=== PATIENT | female | born 1945 | race Caucasian/White ===

== ENCOUNTER → 2016-12-31 | Outpatient (REF) | payer OTHER ==
[~2016-12-31] MED LIST: /MOXI40TA OR; /PANT40TA OR; /SUCR1TA OR; ASPI324T; ASPI32ECTA PO; ATIV1TAB7 PO; BISO10TA PO; BISO10TA2 OR; CALCTAB22 OR; CAPT12.5 OR; CAPT125TA PO; INVO100T PO; JANU100T PO; LASIX PO; LEVE1INJ5 SC; LIPI20TA PO; LORA1TAB OR; MULT1TAB15 PO; MULTIVIT PO; POTA-77 PO; POTA20TA PO; PREG50CA OR; QUET5TAB PO; SYNT75TA OR; SYNT75TA PO; pradaxa PO
[2016-12-31 18:12] LABS: IMMUNOGLOBULIN A 38.8 MG/DL (70-400); IMMUNOGLOBULIN G 1790 MG/DL (681-1648); TOTAL PROTEIN 7.9 GM/DL (6.4-8.2)
[2016-12-31 19:09] LABS: IMMUNOGLOBULIN M 20.6 MG/DL (40-230)
[2017-01-02 11:49] LABS: ALBUMIN % 54.4 % (55.8-66.1); GAMMA GLOBULIN % 21.6 % (11.1-18.8)
== END ==
LOC: M LAB REF 16:27
PROVIDERS: ATTEND Internal Medicine
DX: D47.2 Monoclonal gammopathy (principal)

== ENCOUNTER → 2017-02-17 | Outpatient (REF) | payer OTHER ==
[~2017-02-17] MED LIST changes: +ASPI325T24 PO; -ASPI32ECTA PO; +DEXA4TA PO; +DIGO0.25 PO; +INSUDET SC; +INVO300T PO; +LASI80TA PO; +LEVA1TAB2 PO; +NYST50SS SS; +POTA10CA PO; +PROC10TA PO; +REVL2.5C PO; +VELC3.5I SC; +VITA-122 PO; +VITMTA PO; +XARE20TA PO; +ZOFR8TAB PO
[2017-02-17 19:38] LABS: IMMUNOGLOBULIN M 18.6 MG/DL (40-230)
[2017-02-20 00:07] LABS: BETA 2 MICROGLOBULIN 5.2 mg/L (0.6-2.4); FREE KAPPA LIGHT CHAINS SERUM 12.2 mg/L (3.3-19.4); FREE LAMBDA LIGHT CHAINS SERUM 1086.4 mg/L (5.7-26.3); KAPPA/LAMBDA RATIO SERUM 0.01 (0.26-1.65)
== END ==
LOC: M LAB REF 16:59
PROVIDERS: ATTEND Internal Medicine Medical Oncology
DX: D47.2 Monoclonal gammopathy (principal)

== ENCOUNTER → 2017-03-05 | Outpatient (REF) | payer OTHER | LOC: M LAB REF 09:03 | PROVIDERS: ATTEND Internal Medicine Medical Oncology | DX: D47.2 Monoclonal gammopathy (principal) ==

== ENCOUNTER → 2017-03-16 | Outpatient (REF) | payer OTHER | LOC: M LAB REF 11:45 | PROVIDERS: ATTEND Internal Medicine Medical Oncology | DX: D47.2 Monoclonal gammopathy (principal); D75.89 Other specified diseases of blood and blood-forming organs; D64.9 Anemia, unspecified ==

== ENCOUNTER → 2017-04-07 | Outpatient (CLI) | payer OTHER ==
--- NOTE | 2017-04-07 15:59 | REP ---
PET/CT: History: Multiple myeloma staging. Bone pain. Equivocal skeletal imaging. The patient also has a history of lung carcinoma. Comparison: Comparison PET-CT study July 05, 2015. TECHNIQUE: 55 minutes following the intravenous injection of a 9.4 mCi dose of F-18 FDG, three-dimensional PET scintigraphy is acquired from the skull base to the proximal thighs. Triplanar noncontrast CT scanning is acquired through the same anatomic range for attenuation correction, and image registration with scan parameters optimized to minimize radiation exposure to the patient. PET scintigraphy and CT datasets were fused and displayed on a workstation with multiplanar and projection display capability. PET/CT Findings: There is post thoracotomy change in the right hemithorax. Adjacent to suture line in the right hilar region, there is a mild zone of hypermetabolic uptake with maximum standard uptake value 3.6. No soft tissue mass or nodule is seen here. The azygos venous arch as in this location and this may be normal vascular uptake. No other abnormal intrathoracic hypermetabolic uptake is seen. No abnormal abdominal or pelvic hypermetabolic uptake is seen. No abnormal skeletal hypermetabolic uptake is seen. Impression: Post thoracotomy changes on the right. No suspicious abnormal hypermetabolic uptake seen. Signed by Tom Lemos MD 04/07/2017 04:10 P
== END ==
LOC: M PLARAD 11:32
PROVIDERS: ATTEND Internal Medicine Medical Oncology
DX: C90.00 Multiple myeloma not having achieved remission (principal); M89.8X9 Other specified disorders of bone, unspecified site
CPT/HCPCS: 78815; A9552

== ENCOUNTER → 2017-04-09 | Outpatient (REF) | payer OTHER | LOC: M LAB REF 15:25 | PROVIDERS: ATTEND Internal Medicine Medical Oncology | DX: C90.00 Multiple myeloma not having achieved remission (principal); Z85.118 Personal history of other malignant neoplasm of bronchus and lung ==

== ENCOUNTER → 2017-04-27 | Outpatient (REF) | payer OTHER ==
[2017-04-27 14:59] LABS: IMMUNOGLOBULIN A 35.6 MG/DL (70-400); IMMUNOGLOBULIN G 2100 MG/DL (681-1648); TOTAL PROTEIN 8.4 GM/DL (6.4-8.2)
[2017-04-27 16:34] LABS: IMMUNOGLOBULIN M 16.3 MG/DL (40-230)
[2017-04-28 12:04] LABS: ALBUMIN % 52.4 % (55.8-66.1); GAMMA GLOBULIN % 22.3 % (11.1-18.8)
[2017-04-30 00:07] LABS: BETA 2 MICROGLOBULIN 2.8 mg/L (0.6-2.4); FREE KAPPA LIGHT CHAINS SERUM 8.7 mg/L (3.3-19.4); FREE LAMBDA LIGHT CHAINS SERUM 767.6 mg/L (5.7-26.3); KAPPA/LAMBDA RATIO SERUM 0.01 (0.26-1.65)
== END ==
LOC: M LAB REF 13:07
PROVIDERS: ATTEND Internal Medicine Medical Oncology
DX: C90.00 Multiple myeloma not having achieved remission (principal)

== ENCOUNTER → 2017-04-29 | Outpatient (REF) | payer OTHER | LOC: M LAB REF 14:59 | PROVIDERS: ATTEND Internal Medicine Medical Oncology | DX: C34.90 Malignant neoplasm of unspecified part of unspecified bronchus or lung (principal) ==

== ENCOUNTER → 2017-04-30 | Outpatient (REF) | payer OTHER | LOC: M LAB REF 12:48 | PROVIDERS: ATTEND Internal Medicine Medical Oncology | DX: C34.90 Malignant neoplasm of unspecified part of unspecified bronchus or lung (principal) ==

== ENCOUNTER 2017-05-16 11:05 | Inpatient (IN) | payer OTHER ==
[~2017-05-16] VITALS: Ht 154.9 cm; Wt 88.0 kg
[~2017-05-16 11:05] MED LIST changes: -DEXA4TA PO; -DIGO0.25 PO; -INSUDET SC; -INVO300T PO; -LASI80TA PO; -LEVA1TAB2 PO; -NYST50SS SS; -POTA10CA PO; -PROC10TA PO; -REVL2.5C PO; -VELC3.5I SC; -VITA-122 PO; -VITMTA PO; -XARE20TA PO; -ZOFR8TAB PO
[2017-05-16] MEDS ORDERED: ZOFR8TAB PO (11:21)
[2017-05-16] MEDS ORDERED: XARE20TA PO (11:21)
[2017-05-16 12:39] LABS: BASO % 0.3 % (0.0-1.0); EOS # 0.1 10^3/uL (0.0-0.50); EOS % 3.6 % (0.0-3.0); IMMATURE GRANULOCYTE % 1.7 % (0-0); LYMPH # 0.5 10^3/uL (1.5-4.5); LYMPH % 17.2 % (24.0-44.0); MEAN CORPUSCULAR HEMOGLOBIN 29.8 pg (27.0-33.0); MEAN CORPUSCULAR HGB CONC 32.9 g/dl (32.0-36.5); MEAN CORPUSCULAR VOLUME 90.7 fl (80.0-96.0); MONO # 0.6 10^3/uL (0.0-0.8); MONO % 18.9 % (0.0-5.0); NEUTROPHILS # 1.8 10^3/uL (1.8-7.7); NEUTROPHILS % 58.3 % (36.0-66.0); PLATELET COUNT, AUTOMATED 167 10^3/uL (150-450); RED CELL DISTRIBUTION WIDTH 17.6 % (11.5-14.5)
[2017-05-16 12:46] LABS: CREATININE FOR GFR 1.08 MG/DL (0.55-1.02); GLOMERULAR FILTRATION RATE 53.4 (>39); POTASSIUM SERUM 3.7 MEQ/L (3.5-5.1)
[2017-05-16 12:52] LABS: ABG BASE EXCESS 2.7 (-2.0-2.0); ABG PARTIAL PRESSURE CO2 35.1 mmHg (35.0-45.0); ABG STANDARD HCO3 26.5 MEQ/L (22.0-26.0); ABG pH (ARTERIAL) 7.487 UNITS (7.350-7.450)
[2017-05-16 12:55] LABS: ABG PARTIAL PRESSURE O2 41.4 mmHg (75.0-100.0)
[2017-05-16] MEDS ORDERED: ISOVUE-370 76% 100ML VIAL (Q9967) As Ordered ONE (13:26)
--- NOTE | 2017-05-16 13:45 | REP ---
Portable chest, 01:06 p.m., single AP view, the patient semi upright: Comparisons are the portable chest dated 08/14/2015, PA and lateral chest dated 02/[address] dated 07/25/2015. There are alveolar and interstitial infiltrates throughout the entire left lung as an interval change. There is interstitial coarsening throughout the right lung, slightly increased from 08/14/2015. There is question of a right pleural effusion. The right hilus appears enlarged as an interval change. Cardiac size is upper normal. Signed by Constantine Spann MD 05/16/2017 01:36 P
--- NOTE | 2017-05-16 14:28 | REP ---
CT of the chest with IV contrast, CT pulmonary angiography: Comparison is the chest CT of 07/25/2015. Note from the technologist reveals that the triggering program for timing of scanning with the intravenous contrast bolus failed during the injection and the technologist was able to scan manually however, the majority of the bolus is in the aorta. I believe there is adequate opacification of the central pulmonary arteries. There are no emboli in the pulmonary trunk or in the central right or left pulmonary base. Pulmonary arteries distal to this are not adequately opacified. The patient has had an interim right upper lobectomy and the right upper lobe paramediastinal mass that was present previously is no longer identified. There are small bilateral pleural effusions, not present previously. There are diffuse bilateral infiltrates, not present previously. Some of these infiltrates have a nodular appearance. There are a few borderline enlarged anterior mediastinal nodes that are increased in size from the prior study. There is an enlarged right hilar node measuring up to 16 mm short axis. There is no left hilar adenopathy. There is subcarinal adenopathy measuring up to 13 mm short axis, not present previously. The thoracic aorta is unremarkable. Cardiac size is normal. The visualized upper abdominal contents are unremarkable. There is no adrenal mass. There are hepatic cysts, unchanged. Impression: No central pulmonary embolus. Interim right upper lobectomy. Small bilateral pleural effusions. Diffuse bilateral infiltrates. Some of these infiltrates have a nodular appearance. Follow-up is recommended for assurance of these are not true lung nodules. Enlarged right hilar nodes. Borderline enlarged mediastinal nodes. Signed by Constantine Spann MD 05/16/2017 02:20 P
[2017-05-16] MEDS ORDERED: REVL2.5C PO (15:27)
[2017-05-16] MEDS ORDERED: VELC3.5I SC (15:27)
[2017-05-16] MEDS ORDERED: VITMTA PO (15:48)
[2017-05-16] MEDS ORDERED: INVO300T PO (15:48)
[2017-05-16] MEDS ORDERED: LASI80TA PO (15:48)
[2017-05-16] MEDS ORDERED: PROC10TA PO ×2 (15:50)
[2017-05-16] MEDS ORDERED: POTA10CA PO (15:51)
[2017-05-16] MEDS ORDERED: VITA-122 PO (15:52)
[2017-05-16] MEDS ORDERED: DEXA4TA PO (15:55)
[2017-05-16] MEDS ORDERED: LevoFLOXacin IV 750 MG in APPROPRIATE DILUENT 1 EA IV ONE (16:00)
--- NOTE | 2017-05-16 16:37 | HPEPDOC ---
[facility] Medical History & Physical Date of Admission May 16, 2017 History and Physical PRIMARY CARE PROVIDER: Dr. Dotson ATTENDING: Dr. Chris Skinner CHIEF COMPLAINT: Shortness of breath/cough HISTORY OF PRESENT ILLNESS: This is a 72-year-old female past medical history of multiple myeloma on chemotherapy, paroxysmal atrial fibrillation on Xarelto, hyperlipidemia, hypertension, diabetes, hypothyroidism, who presents complaining of a nonproductive cough, mild hemoptysis, presented to urgent care today and referred to the ED. Patient started to develop low-grade temperatures while in the emergency department. Is also hypoxic requiring 3 L oxygen nasal cannula. Denies any chest pain. No palpitations. No sick contacts or recent travels. PAST MEDICAL HISTORY: As per HPI PAST SURGICAL HISTORY: Knee surgery, A. 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 Occasional alcohol. No illicit drug use. FAMILY HISTORY: Noncontributory ALLERGIES: Please see below. REVIEW OF SYSTEMS: HEENT: Denies sore throat/headache CARDIOVASCULAR: Denies chest pain/palpitations RESPIRATORY: Positive shortness of breath/cough GASTROINTESTINAL: denies nausea/vomiting GENITOURINARY: Denies dysuria/urinary urgency. MUSCULOSKELETAL: Denies myalgias/arthralgias NEUROLOGICAL: Denies any focal weakness HOME MEDICATIONS: Please see below. PHYSICAL EXAMINATION: Vitals: (see below) General: No acute distress, laying comfortably in bed. HEENT: Moist mucous membranes. Neck: No JVD or lymphadenopathy Cardiac: RRR, No murmurs Pulm: Diminished breath sounds at the bases b/l. No wheezing, rhonchi Abd: NT/ND + BS Ext: No edema or cyanosis LABORATORY DATA: See below. IMAGING: CTA chest 05/16/17 Impression: No central pulmonary embolus. Interim right upper lobectomy. Small bilateral pleural effusions. Diffuse bilateral infiltrates. Some of these infiltrates have a nodular appearance. Follow-up is recommended for assurance of these are not true lung nodules. Enlarged right hilar nodes. Borderline enlarged mediastinal nodes. MICROBIOLOGY: Please see below. ASSESSMENT/PLAN: 1. Sepsis secondary to bilateral community acquired pneumonia. Patient's hypoxic as well as febrile. Mild hemoptysis resolved. Started on Levaquin. Mucinex. Nebs. IV fluids. Blood cultures/sputum culture. 2. History of multiple myeloma on chemotherapy 3. Mild anemia/leukopenia on chemotherapy 4. History of prior small atrial fibrillation status post ablation on Xarelto 5. History of hypertension continue home meds. Hold diuretics for now. 6. Hyperlipidemia continue meds 7. Diabetes mellitus continue Levemir, sliding scale insulin 8. Hypothyroidism on levothyroxine DVT prophylaxis enoxaparin Patient be followed by Dr. Chris Skinner starting 05/17/17 at 7 AM. Vital Signs Vital Signs Date Time Temp Pulse Resp B/P (MAP) Pulse Ox O2 Delivery O2 Flow Rate FiO2 05/16/17 16:05 100.4 64 142/71 (94) 90 Nasal Cannula 3.0 05/16/17 13:05 18 Laboratory Data Labs 24H Laboratory Tests 2 05/16/17 11:56: Immature Granulocyte % (Auto) 1.7H, White Blood Count 3.0L, Red Blood Count 3.22L, Hemoglobin 9.6L, Hematocrit 29.2L, Mean Corpuscular Volume 90.7, Mean Corpuscular Hemoglobin 29.8, Mean Corpuscular Hemoglobin Concent 32.9, Red Cell Distribution Width 17.6H, Platelet Count 167, Neutrophils (%) (Auto) 58.3, Lymphocytes (%) (Auto) 17.2L, Monocytes (%) (Auto) 18.9H, Eosinophils (%) (Auto ) 3.6H, Basophils (%) (Auto) 0.3, Neutrophils # (Auto) 1.8, Lymphocytes # (Auto ) 0.5L, Monocytes # (Auto) 0.6, Eosinophils # (Auto) 0.1, Basophils # (Auto) 0.0 , Immature Granulocyte # (Auto) 0.1H, Nucleated Red Blood Cells % (auto) 0.0, Anion Gap 8, Glomerular Filtration Rate 53.4, Lactic Acid Level 1.1, Blood Urea Nitrogen 21H, Creatinine 1.08H, Sodium Level 135L, Potassium Level 3.7, Chloride Level 98, Carbon Dioxide Level 29, Calcium Level 9.0 05/16/17 12:39: Blood Gas Bicarbonate Standard 26.5H, Arterial Blood pH 7.487H, Arterial Blood Partial Pressure CO2 35.1, Arterial Blood Partial Pressure O2 41.4*L, Arterial Blood Total CO2 27.0, Arterial Blood HCO3 26.0, Arterial Blood Base Excess 2.7H , Arterial Blood Oxygen Saturation 78.8L CBC/BMP Laboratory Tests 05/16/17 11:56 Red Blood Count 3.22 L, Mean Corpuscular Volume 90.7, Mean Corpuscular Hemoglobin 29.8, Mean Corpuscular Hemoglobin Concent 32.9, Red Cell Distribution Width 17.6 H, Neutrophils (%) (Auto) 58.3, Lymphocytes (%) (Auto) 17.2 L, Monocytes (%) (Auto) 18.9 H, Eosinophils (%) (Auto) 3.6 H, Basophils (% ) (Auto) 0.3, Neutrophils # (Auto) 1.8, Lymphocytes # (Auto) 0.5 L, Monocytes # (Auto) 0.6, Eosinophils # (Auto) 0.1, Basophils # (Auto) 0.0, Calcium Level 9.0 Microbiology Microbiology 05/16/17 Blood Culture, Received Pending Home Medications Scheduled (Revlimid) 2.5 Mg Cap, Unknown Dose PO QHS PT UNSURE OF STRENGTH. WILL BRING IN. PLEASE CORRECT THIS ENTRY WHEN SHE DOES Bisoprolol Fumarate (Zebeta) 10 Mg Tab, 10 MG PO BID Bortezomib (Velcade) Unknown Strength Inj, 2.5 MG SC ASDIRECTED TAKES 1XW FOR 3 WEEKS, STOPS FOR A WEEK, AND THEN STARTS AGAIN. FRIDAY 05/11 WAS LAST DOSE. WILL START AGAIN 05/25 Canagliflozin (Invokana) 300 Mg Tab, 300 MG PO DAILY Captopril (Captopril) 12.5 Mg Tab, 12.5 MG PO BID Cholecalciferol (Vitamin D3) 1,000 Unit Tab, 1,000 UNIT PO DAILY Dexamethasone (Dexamethasone) 4 Mg Tab, 20 MG PO 1XWK THURSDAY Furosemide (Lasix) 80 Mg Tab, 80 MG PO BID MORNING AND SUPPER Insulin Detemir (Levemir Flextouch) 100 Unit/Ml Inj, 74 UNIT SC QHS Levothyroxine Sodium (Synthroid) 75 Mcg Tab, 75 MCG PO DAILY Multivitamins *[facility] STOCKED* (Thera M Plus *[facility] STOCKED*) 1 Tab Tab, 1 TAB PO DAILY Potassium Chloride (Klor-Con M10) 10 Meq Tabcr, 10 MEQ PO BID Prochlorperazine Maleate (Prochlorperazine Maleate) 10 Mg Tab, 10 MG PO QHS Quetiapine Fumerate (Quetiapine Fumarate) 50 Mg Tab, 50 MG PO QHS Rivaroxaban (Xarelto) 20 Mg Tab, 20 MG PO DAILY Sitagliptin Phosphate (Januvia) 100 Mg Tab, 100 MG PO ACS Scheduled PRN Lorazepam (Ativan) 1 Mg Tab, 1 MG PO QID PRN for ANXIETY/AGITATION Prochlorperazine Maleate (Prochlorperazine Maleate) 10 Mg Tab, 10 MG PO PRN PRN for NAUSEA Allergies Coded Allergies: Latex (Verified Allergy, Intermediate, rash, 08/14/15) Penicillins (Verified Allergy, Intermediate, RASH, 10/27/12) Penicillins Cross Reactors (Verified Allergy, Intermediate, RASH, 10/27/12) Shellfish Allergy (Verified Allergy, Intermediate, SWELLING, 08/14/15) Codeine (Verified Adverse Reaction, Mild, UPSET STOMACH, 10/27/12) Dabigatran (Verified Adverse Reaction, Mild, ITCH, 08/14/15) KIRSTEN CLAYTON MD May 16, 2017 16:37
[2017-05-16] MEDS ORDERED: NS 1,000 ML IV SCH (17:00)
[2017-05-16 17:40] VITALS: BP 139/69
[2017-05-16] MEDS: IPRATROPIUM 0.5MG/ALBUTEROL 2.5MG INH SOL UD 3ML (DUONEB)(J7620) NEB SCH ×2 (19:56→22:21)
[2017-05-16 20:00] VITALS: BP 108/59
[2017-05-16] MEDS: BISOPROLOL FUMARATE 10 MG TAB PO SCH (21:00)
[2017-05-16] MEDS: HumaLOG INSULIN (NovoLOG) PER UNIT SC SCH (21:00)
[2017-05-16] MEDS: CAPTOpril 12.5 MG TAB PO SCH (21:00)
[2017-05-16] MEDS: guaiFENesin ER 600 MG TAB PO SCH (21:33)
[2017-05-16] MEDS: LORazepam 1 MG TAB PO PRN (21:34)
[2017-05-16] MEDS: QUEtiapine FUMARATE 50 MG TAB PO SCH (21:34)
[2017-05-16] MEDS: PROCHLORPERAZINE 5 MG TAB (S0183) PO SCH (21:34)
[2017-05-16] MEDS ORDERED: DEXTROSE 50% 50 ML SYRINGE IV PRN (21:45)
[2017-05-16] MEDS ORDERED: GLUCOSE 4 GM CHEW TABLET PO PRN (21:45)
[2017-05-16] MEDS ORDERED: GLUCAGON FOR INJ 1 MG VIAL (J1610) SC PRN (21:45)
[2017-05-16] MEDS: REVLIMID 25 MG PO SCH (21:50)
[2017-05-16] MEDS: ALBUTEROL SULFATE 2.5 MG/0.5 ML INH NEB SOLN INH PRN (22:22)
[2017-05-17] VITALS: BP 116/57
[2017-05-17] MEDS: IPRATROPIUM 0.5MG/ALBUTEROL 2.5MG INH SOL UD 3ML (DUONEB)(J7620) NEB SCH ×6 (03:03→23:22)
[2017-05-17 04:00] VITALS: BP 104/75
[2017-05-17] MEDS: LEVOTHYROXINE 75MCG TABLET (0.075MG) PO SCH (05:56)
[2017-05-17] MEDS: HumaLOG INSULIN (NovoLOG) PER UNIT SC SCH ×4 (07:33→20:49)
[2017-05-17 08:00] VITALS: BP 118/54
--- NOTE | 2017-05-17 08:06 | ECGEPIP ---
Stationary ECG Study [facility] - ED Test Date: 2017-05-16 Pat Name: ISMAEL MONGE Department: Room: - Gender: F Shelter Director: [facility] : 1945 Requested By: Rishabh Brown Order Number: [id number] Reading MD: Анна Cabral Measurements Intervals [place] Rate: 65 P: 66 WI: 135 QRS: 26 QRSD: 82 T: 36 QT: 437 QTc: 455 Interpretive Statements SINUS RHYTHM MINIMAL ST DEPRESSION PROLONGED QTC COMPARED 09/22/11 Electronically Signed On 05-17-2017 8:06:32 EDT by Анна Cabral
[2017-05-17 08:37] LABS: MEAN CORPUSCULAR HEMOGLOBIN 29.1 pg (27.0-33.0); MEAN CORPUSCULAR HGB CONC 30.9 g/dl (32.0-36.5); MEAN CORPUSCULAR VOLUME 93.9 fl (80.0-96.0); PLATELET COUNT, AUTOMATED 158 10^3/uL (150-450); WHITE BLOOD COUNT 2.7 10^3/uL (4.0-10.0)
[2017-05-17 08:46] LABS: POS COUNT POS FLAG; POSITIVE MORPH POS FLAG
[2017-05-17 08:55] LABS: ADD MANUAL DIFFER YES; DIFF SLIDE NUMBER 88
[2017-05-17] MEDS: VITAMIN D 1,000 INTERNATIONAL UNITS TABLET PO SCH (08:55)
[2017-05-17] MEDS: MULTIVITAMINS/MINERALS THERAP 1 TAB PO SCH (08:55)
[2017-05-17] MEDS: guaiFENesin ER 600 MG TAB PO SCH ×2 (08:55→21:01)
[2017-05-17] MEDS: RIVAROXABAN 20 MG TAB (XARELTO) PO SCH (08:55)
[2017-05-17] MEDS: CAPTOpril 12.5 MG TAB PO SCH ×2 (08:56→21:01)
[2017-05-17] MEDS: BISOPROLOL FUMARATE 10 MG TAB PO SCH ×2 (08:57→21:00)
[2017-05-17] MEDS: LevoFLOXacin IV 250 MG in APPROPRIATE DILUENT 1 EA IV SCH (08:57)
[2017-05-17 09:08] LABS: BANDS 3 % (< 11); EOSINOPHILS 8 % (0-5)
[2017-05-17 09:15] LABS: ALBUMIN/GLOBULIN RATIO 0.61 (1.00-1.93); ALKALINE PHOSPHATASE 158 U/L (45-117); ALT/SGPT 48 U/L (12-78); ANION GAP 6 MEQ/L (8-16); ANISOCYTOSIS 2+; AST/SGOT 8 U/L (15-37); BILIRUBIN,TOTAL 0.8 MG/DL (0.2-1.0); BLOOD UREA NITROGEN 14 MG/DL (7-18); CALCIUM LEVEL 8.1 MG/DL (8.8-10.2); CARBON DIOXIDE LEVEL 29 MEQ/L (21-32); CHLORIDE LEVEL 105 MEQ/L (98-107); CREATININE FOR GFR 0.97 MG/DL (0.55-1.02); GLOMERULAR FILTRATION RATE > 60.0 (>39); GLUCOSE, FASTING 148 MG/DL (83-110); MAGNESIUM LEVEL 2.4 MG/DL (1.8-2.4); OVALOCYTES 1+; PHOSPHORUS LEVEL 2.4 MG/DL (2.5-4.9); POTASSIUM SERUM 3.6 MEQ/L (3.5-5.1); SODIUM LEVEL 140 MEQ/L (136-145); TOTAL PROTEIN 5.3 GM/DL (6.4-8.2)
[2017-05-17] MEDS: NEUTRA-PHOS 1.25 GM PACKET PO SCH ×3 (10:45→20:59)
--- NOTE | 2017-05-17 14:14 | IPNPDOC ---
Text Note Date of Service The patient was seen on 05/17/17. 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 She was found to have a bilateral pneumonia. Patient was seen and examined at the bedside. She notes that she generally feels better and has more energy than yesterday. Objective: Vitals (See below) General: Lying in bed, no acute distress, comfortable, AAOx3 HEENT: NC, AT CVS: RRR, +S1S2 Lungs: Decreased breath sounds bilaterally, no wheezing / crackles / rhonchi appreciated Abdomen: Soft, ND, NT Extremities: - Edema, - Calf tenderness Assessment and plan: Sepsis - likely 2/2 bilateral community acquired pneumonia - Presented with non-productive cough, was found to have a fever and required supplemental oxygen - Currently on supplemental oxygen at 3 liters; does not use oxygen at home - Leukopenia: ANC of 1.8 - Blood cultures 05/16: pending - CTA Chest 05/16: no central PE, interim R upper lobectomy, small bilateral pleural effusions, diffuse bilateral infiltrates (some with nodular appearance) ; f/u CT recommended - c/w Levaquin (Day #2) Multiple myeloma - on chemotherapy as an outpatient Hx of Small cell lung CA (s/p R upper lobectomy) Anemia / Leukopenia - likely 2/2 chemotherapy - Hg drop of 1g; likely 2/2 dilution 2/2 IV fluids Paroxysmal atrial fibrillation - s/p ablation - c/w rate control with Bisoprolol - c/w anticoagulation with Xarelto HTN - BP well controlled - cw/ Captopril and Bisporolol - Hold diuretics Hypothyroidism - c/w Levothyroxine Anxiety - c/w Quetiapine and Lorazepam IDDM2 - c/w Levemir and ISS DLP DVT prophylaxis - on full anticoagulation with Xarelto VS,Fishbone, I+O VS, Fishbone, I+O Laboratory Tests 05/17/17 08:13 Red Blood Count 2.96 L, Mean Corpuscular Volume 93.9, Mean Corpuscular Hemoglobin 29.1, Mean Corpuscular Hemoglobin Concent 30.9 L, Red Cell Distribution Width 18.0 H, Calcium Level 8.1 L, Phosphorus Level 2.4 L, Aspartate Amino Transf (AST/SGOT) 8 L, Alanine Aminotransferase (ALT/SGPT) 48, Alkaline Phosphatase 158 H, Total Bilirubin 0.8, Total Protein 5.3 L, Albumin 2.0 L Vital Signs Date Time Temp Pulse Resp B/P (MAP) Pulse Ox O2 Delivery O2 Flow Rate FiO2 05/17/17 12:24 Nasal Cannula 3.0 05/17/17 08:57 80 118/54 05/17/17 08:00 99.0 19 88 I&O- Last 24 Hours up to 6 AM 05/18/17 06:00 Intake Total 240 ml Output Total 0 ml Balance 240 ml HARRIET LEAL MD May 17, 2017 14:14
[2017-05-17 16:00] VITALS: BP 120/55
[2017-05-17] MEDS: ACETAMINOPHEN TAB 650MG DOSE (2X325MG) PO PRN (17:55)
[2017-05-17 20:00] VITALS: BP 139/63
[2017-05-17] MEDS: LORazepam 1 MG TAB PO PRN (21:00)
[2017-05-17] MEDS: REVLIMID 25 MG PO SCH (21:00)
[2017-05-17] MEDS: QUEtiapine FUMARATE 50 MG TAB PO SCH (21:00)
[2017-05-17] MEDS: PROCHLORPERAZINE 5 MG TAB (S0183) PO SCH (21:01)
[2017-05-18] VITALS: BP 113/57
[2017-05-18 04:00] VITALS: BP 128/63
[2017-05-18] MEDS: IPRATROPIUM 0.5MG/ALBUTEROL 2.5MG INH SOL UD 3ML (DUONEB)(J7620) NEB SCH ×5 (04:00→19:31)
[2017-05-18 05:23] LABS: BASO % 0.4 % (0.0-1.0); EOS % 0.4 % (0.0-3.0); IMMATURE GRANULOCYTE % 2.1 % (0-0); LYMPH # 0.3 10^3/uL (1.5-4.5); LYMPH % 11.7 % (24.0-44.0); MEAN CORPUSCULAR HEMOGLOBIN 28.6 pg (27.0-33.0); MEAN CORPUSCULAR HGB CONC 30.7 g/dl (32.0-36.5); MONO # 0.3 10^3/uL (0.0-0.8); NEUTROPHILS # 2.1 10^3/uL (1.8-7.7); NEUTROPHILS % 73.4 % (36.0-66.0); PLATELET COUNT, AUTOMATED 168 10^3/uL (150-450); RED CELL DISTRIBUTION WIDTH 18.3 % (11.5-14.5); WHITE BLOOD COUNT 2.8 10^3/uL (4.0-10.0)
[2017-05-18 05:43] LABS: ALBUMIN 2.1 GM/DL (3.2-5.2); ALKALINE PHOSPHATASE 153 U/L (45-117); ALT/SGPT 40 U/L (12-78); ANION GAP 6 MEQ/L (8-16); AST/SGOT 4 U/L (15-37); BILIRUBIN,TOTAL 0.5 MG/DL (0.2-1.0); BLOOD UREA NITROGEN 15 MG/DL (7-18); CALCIUM LEVEL 9.7 MG/DL (8.8-10.2); CARBON DIOXIDE LEVEL 30 MEQ/L (21-32); CHLORIDE LEVEL 105 MEQ/L (98-107); CREATININE FOR GFR 0.83 MG/DL (0.55-1.02); GLOMERULAR FILTRATION RATE > 60.0 (>39); GLUCOSE, FASTING 184 MG/DL (83-110); MAGNESIUM LEVEL 3.1 MG/DL (1.8-2.4); POTASSIUM SERUM 3.8 MEQ/L (3.5-5.1); SODIUM LEVEL 141 MEQ/L (136-145); TOTAL PROTEIN 6.3 GM/DL (6.4-8.2)
[2017-05-18] MEDS: LEVOTHYROXINE 75MCG TABLET (0.075MG) PO SCH (06:03)
[2017-05-18 08:05] VITALS: BP 126/80
[2017-05-18] MEDS: HumaLOG INSULIN (NovoLOG) PER UNIT SC SCH ×4 (08:27→21:00)
[2017-05-18] MEDS: MULTIVITAMINS/MINERALS THERAP 1 TAB PO SCH (08:27)
[2017-05-18] MEDS: guaiFENesin ER 600 MG TAB PO SCH ×2 (08:28→20:34)
[2017-05-18] MEDS: VITAMIN D 1,000 INTERNATIONAL UNITS TABLET PO SCH (08:28)
[2017-05-18] MEDS: RIVAROXABAN 20 MG TAB (XARELTO) PO SCH (08:28)
[2017-05-18] MEDS ORDERED: INFLUENZA VIRUS VACCINE HIGH DOSE 0.5 ML SYRINGE (90662) IM ONE (09:00)
[2017-05-18] MEDS: CAPTOpril 12.5 MG TAB PO SCH ×2 (09:57→20:34)
[2017-05-18] MEDS: BISOPROLOL FUMARATE 10 MG TAB PO SCH ×2 (09:57→20:33)
[2017-05-18] MEDS: LevoFLOXacin IV 250 MG in APPROPRIATE DILUENT 1 EA IV SCH (10:04)
[2017-05-18 11:59] VITALS: BP 160/70
--- NOTE | 2017-05-18 14:17 | IPNPDOC ---
Text Note Date of Service The patient was seen on 05/18/17. 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 She was found to have a bilateral pneumonia. Patient was seen and examined at the bedside. Again she notes that she is feeling better. She notes that she is producing a lot of sputum. Objective: Vitals (See below) General: Lying in bed, no acute distress, comfortable, AAOx3 HEENT: NC, AT CVS: RRR, +S1S2 Lungs: Decreased breath sounds bilaterally, no wheezing / crackles / rhonchi appreciated Abdomen: Soft, ND, NT Extremities: - Edema, - Calf tenderness Assessment and plan: Sepsis - likely 2/2 bilateral community acquired pneumonia - Presented with non-productive cough, was found to have a fever and required supplemental oxygen - Currently on supplemental oxygen at 3-4 liters; does not use oxygen at home - CRP trending down - Blood cultures 05/16: no growth at 24 hours - CTA Chest 05/16: no central PE, interim R upper lobectomy, small bilateral pleural effusions, diffuse bilateral infiltrates (some with nodular appearance) ; f/u CT recommended - c/w Levaquin (Day #3) Multiple myeloma - on chemotherapy as an outpatient Hx of Small cell lung CA (s/p R upper lobectomy) Anemia / Leukopenia - likely 2/2 chemotherapy - Leukopenia: ANC of 2.1 - Hg remains stable Paroxysmal atrial fibrillation - s/p ablation - c/w rate control with Bisoprolol - c/w anticoagulation with Xarelto HTN - BP well controlled - c/w Captopril and Bisoprolol - Hold diuretics Hypothyroidism - c/w Levothyroxine Anxiety - c/w Quetiapine and Lorazepam IDDM2 - c/w Levemir and ISS DLP DVT prophylaxis - on full anticoagulation with Xarelto VS,Fishbone, I+O VS, Fishbone, I+O Laboratory Tests 05/18/17 04:46 Red Blood Count 3.15 L, Mean Corpuscular Volume 93.0, Mean Corpuscular Hemoglobin 28.6, Mean Corpuscular Hemoglobin Concent 30.7 L, Red Cell Distribution Width 18.3 H, Neutrophils (%) (Auto) 73.4 H, Lymphocytes (%) (Auto ) 11.7 L, Monocytes (%) (Auto) 12.0 H, Eosinophils (%) (Auto) 0.4, Basophils (% ) (Auto) 0.4, Neutrophils # (Auto) 2.1, Lymphocytes # (Auto) 0.3 L, Monocytes # (Auto) 0.3, Eosinophils # (Auto) 0.0, Basophils # (Auto) 0.0, Calcium Level 9.7 #, Aspartate Amino Transf (AST/SGOT) 4 L, Alanine Aminotransferase (ALT/SGPT) 40 , Alkaline Phosphatase 153 H, Total Bilirubin 0.5, Total Protein 6.3 L, Albumin 2.1 L Vital Signs Date Time Temp Pulse Resp B/P (MAP) Pulse Ox O2 Delivery O2 Flow Rate FiO2 05/18/17 12:30 91 Nasal Cannula 3.0 05/18/17 11:59 97.5 90 20 160/70 (100) I&O- Last 24 Hours up to 6 AM 05/19/17 06:00 Intake Total 600 ml Output Total 750 ml Balance -150 ml HARRIET LEAL MD May 18, 2017 14:17
[2017-05-18 16:00] VITALS: BP 154/67
[2017-05-18 20:00] VITALS: BP 171/73
[2017-05-18] MEDS: LORazepam 1 MG TAB PO PRN (20:32)
[2017-05-18] MEDS: QUEtiapine FUMARATE 50 MG TAB PO SCH (20:34)
[2017-05-18] MEDS: PROCHLORPERAZINE 5 MG TAB (S0183) PO SCH (20:37)
[2017-05-18] MEDS: REVLIMID 25 MG PO SCH (21:00)
[2017-05-18] MEDS: ALBUTEROL SULFATE 2.5 MG/0.5 ML INH NEB SOLN INH PRN (22:03)
[2017-05-19] VITALS (8 sets, daily range): BP systolic 121–154; BP diastolic 60–94
[2017-05-19] MEDS: IPRATROPIUM 0.5MG/ALBUTEROL 2.5MG INH SOL UD 3ML (DUONEB)(J7620) NEB SCH ×3 (01:14→08:00)
[2017-05-19] MEDS ORDERED: SLF 3 ML SYR IV PRN (02:15)
[2017-05-19] MEDS: LORazepam 1 MG TAB PO PRN (04:14)
[2017-05-19] MEDS: ONDANSETRON 4MG/2ML VIAL (J2405) IV PRN (04:48)
[2017-05-19 05:51] LABS: BASO % 0.6 % (0.0-1.0); EOS # 0.2 10^3/uL (0.0-0.50); EOS % 3.5 % (0.0-3.0); IMMATURE GRANULOCYTE % 4.5 % (0-0); LYMPH # 0.7 10^3/uL (1.5-4.5); LYMPH % 14.1 % (24.0-44.0); MEAN CORPUSCULAR HEMOGLOBIN 29.7 pg (27.0-33.0); MEAN CORPUSCULAR HGB CONC 30.8 g/dl (32.0-36.5); MEAN CORPUSCULAR VOLUME 96.3 fl (80.0-96.0); MONO # 0.5 10^3/uL (0.0-0.8); MONO % 9.6 % (0.0-5.0); NEUTROPHILS # 3.4 10^3/uL (1.8-7.7); NEUTROPHILS % 67.7 % (36.0-66.0); PLATELET COUNT, AUTOMATED 216 10^3/uL (150-450); RED CELL DISTRIBUTION WIDTH 18.7 % (11.5-14.5); WHITE BLOOD COUNT 5.1 10^3/uL (4.0-10.0)
[2017-05-19] MEDS: LEVOTHYROXINE 75MCG TABLET (0.075MG) PO SCH (06:04)
[2017-05-19] MEDS: SLF 3 ML SYR IV SCH ×3 (06:06→21:32)
--- NOTE | 2017-05-19 06:09 | IPNPDOC ---
Text Note Date of Service The patient was seen on 05/19/17. NOTE Evening resident and attending were notified that patient was having VR in the 170s. Stat EKG, CXR, cardiac markers were ordered. Patient's chart was reviewed and examined at bedside. She stated she had a fib and ablation in the past and before amiodarone worked for her. She is feeling her heart rate going up, similar to when she was having Afib. EKG showed afib with VR of 170. Will start trail of lopressor IV 5 mg q 5 minutes and if controlled will switch her to PO metoprolol at this point will continue to monitor her. If BP drops, will consider digoxin or amiodarone. Patient did state that she has heart failure, therefore will not attempt CCB unless more information is obtained. Patient has been discussed with Dr. Zabala. ERIKE ATTESTATION My preceptor for this patient encounter was physically present in the building during the encounter and was fully available. As needed, all aspects of the patient interview, examination, medical decision making process, and medical care plan development were reviewed and approved by the preceptor. Preceptor is aware and concurs with the plan as stated in the body of this note and will attest to such by his/her cosignature. VS,Fishbone, I+O VS, Fishbone, I+O Laboratory Tests 05/19/17 05:28 Red Blood Count 3.27 L, Mean Corpuscular Volume 96.3 H, Mean Corpuscular Hemoglobin 29.7, Mean Corpuscular Hemoglobin Concent 30.8 L, Red Cell Distribution Width 18.7 H, Neutrophils (%) (Auto) 67.7 H, Lymphocytes (%) (Auto ) 14.1 L, Monocytes (%) (Auto) 9.6 H, Eosinophils (%) (Auto) 3.5 H, Basophils (% ) (Auto) 0.6, Neutrophils # (Auto) 3.4, Lymphocytes # (Auto) 0.7 L, Monocytes # (Auto) 0.5, Eosinophils # (Auto) 0.2, Basophils # (Auto) 0.0 Vital Signs Date Time Temp Pulse Resp B/P (MAP) Pulse Ox O2 Delivery O2 Flow Rate FiO2 05/19/17 04:00 Nasal Cannula 4.0 05/19/17 04:00 97.6 84 24 143/76 (98) 88 LIZ SR DO May 19, 2017 06:09
[2017-05-19] MEDS: METOPROLOL 5 MG/5 ML VIAL IV SCH ×3 (06:12→06:37)
[2017-05-19 06:16] LABS: ALBUMIN 2.1 GM/DL (3.2-5.2); ALKALINE PHOSPHATASE 142 U/L (45-117); ALT/SGPT 33 U/L (12-78); ANION GAP 10 MEQ/L (8-16); AST/SGOT 7 U/L (15-37); BILIRUBIN,TOTAL 0.7 MG/DL (0.2-1.0); BLOOD UREA NITROGEN 13 MG/DL (7-18); CALCIUM LEVEL 9.2 MG/DL (8.8-10.2); CARBON DIOXIDE LEVEL 28 MEQ/L (21-32); CHLORIDE LEVEL 104 MEQ/L (98-107); CREATININE FOR GFR 0.73 MG/DL (0.55-1.02); GLOMERULAR FILTRATION RATE > 60.0 (>39); GLUCOSE, FASTING 138 MG/DL (83-110); MAGNESIUM LEVEL 2.6 MG/DL (1.8-2.4); POTASSIUM SERUM 3.8 MEQ/L (3.5-5.1); SODIUM LEVEL 142 MEQ/L (136-145); TOTAL PROTEIN 5.6 GM/DL (6.4-8.2)
[2017-05-19] MEDS ORDERED: METOPROLOL TART 50 MG TAB PO STA (06:22)
[2017-05-19] MEDS: BISOPROLOL FUMARATE 10 MG TAB PO SCH ×2 (06:38→21:26)
--- NOTE | 2017-05-19 08:03 | REP ---
Portable chest, 05:57 a.m.: There are are significantly increased interstitial alveolar infiltrates throughout the entire left lung. There is an infiltrate inferiorly in the left lung. Cardiac size is enlarged, unchanged. The amandeep appear enlarged, unchanged. The Impression: Significantly increased infiltrate throughout the entire left lung. Increased infiltrate inferiorly in the right lung. Signed by Constantine Spann MD 05/19/2017 07:55 A
[2017-05-19] MEDS: HumaLOG INSULIN (NovoLOG) PER UNIT SC SCH ×4 (08:22→21:31)
--- NOTE | 2017-05-19 08:40 | ECGEPIP ---
Stationary ECG Study [facility] Test Date: 2017-05-19 Pat Name: ISMALE MONGE Department: Room: [place] [address] Gender: F Bilingual Secretary: FRANCHESCA : 1945 Requested By: LIZ SR Order Number: [id number] Reading MD: Fritz Oconnell Measurements Intervals [place] Rate: 157 P: DC: 0 QRS: 48 QRSD: 78 T: -4 QT: 278 QTc: 450 Interpretive Statements ATRIAL FIBRILLATION WITH RAPID VENTRICULAR RESPONSE NONSPECIFIC ST & T-WAVE ABNORMALITY Rhythm change from 05/16/17. Clinical correlation advised with followup study. Electronically Signed On 05-19-2017 8:40:16 EDT by Fritz Oconnell
[2017-05-19] MEDS: RIVAROXABAN 20 MG TAB (XARELTO) PO SCH (09:09)
[2017-05-19] MEDS: guaiFENesin ER 600 MG TAB PO SCH ×2 (09:09→21:26)
[2017-05-19] MEDS: LevoFLOXacin IV 250 MG in APPROPRIATE DILUENT 1 EA IV SCH (09:10)
[2017-05-19] MEDS: MULTIVITAMINS/MINERALS THERAP 1 TAB PO SCH (09:10)
[2017-05-19] MEDS: CAPTOpril 12.5 MG TAB PO SCH ×2 (09:10→21:26)
[2017-05-19] MEDS: VITAMIN D 1,000 INTERNATIONAL UNITS TABLET PO SCH (09:10)
[2017-05-19] MEDS ORDERED: DIGOXIN INJ 0.5 MG/2 ML AMP (J1160) IV ONE (10:45)
[2017-05-19] MEDS: DIGOXIN 0.25 MG TAB PO SCH (11:09)
[2017-05-19] MEDS ORDERED: SENOKOT S TAB PO PRN (13:00)
--- NOTE | 2017-05-19 13:57 | IPNPDOC ---
Text Note Date of Service The patient was seen on 05/19/17. 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 She was found to have a bilateral pneumonia. Patient was seen and examined at the bedside. She notes that her breathing is relatively better. Reports cough with sputum production and streaks of blood. She has been noted to be in a.fib with RVR this morning. Her rate spiked to up to 180s; has been in 160 range since then. She has failed to improve wtih Metoprolol IV x3, Diltiazem IV x1. I have discussed case with Dr. Oconnell, will start Digoxin on her. She has reverted back to sinus rhythm prior to Digoxin IV. At this time we will continue with digoxin PO. Objective: Vitals (See below) General: Lying in bed, no acute distress, comfortable, AAOx3 HEENT: NC, AT CVS: RRR, +S1S2 Lungs: Decreased breath sounds bilaterally, no wheezing / crackles / rhonchi appreciated Abdomen: Soft, ND, NT Extremities: - Edema, - Calf tenderness Assessment and plan: Sepsis - likely 2/2 bilateral community acquired pneumonia - Presented with non-productive cough, was found to have a fever and required supplemental oxygen - Currently on supplemental oxygen at 3-4 liters - will continue to taper patient off oxygen - CRP continues to trend down - Blood cultures 05/16: no growth at 48 hours - CTA Chest 05/16: no central PE, interim R upper lobectomy, small bilateral pleural effusions, diffuse bilateral infiltrates (some with nodular appearance) ; f/u CT recommended - c/w Levaquin (Day #4) Paroxysmal atrial fibrillation / A.fib with RVR - Patient went into A.fib with RVR this morning and failed to improve with Metoprolol IV and Diltiazem IV - Discussed with Dr. Oconnell (Cardiology) will start Digoxin; will start oral since she has reverted back into sinus rhythm - s/p ablation, c/w rate control with Bisoprolol - c/w anticoagulation with Xarelto Multiple myeloma - on chemotherapy as an outpatient Hx of Small cell lung CA - s/p R upper lobectomy Anemia - likely 2/2 chemotherapy - Hg remains stable s/p Leukopenia - likely 2/2 chemotherapy - ANC of 3.4 HTN - BP well controlled - c/w Captopril and Bisoprolol - Hold diuretics Hypothyroidism - c/w Levothyroxine Anxiety - c/w Quetiapine and Lorazepam IDDM2 - c/w Levemir and ISS DLP DVT prophylaxis - on full anticoagulation with Xarelto VS,Fishbone, I+O VS, Fishbone, I+O Laboratory Tests 05/19/17 05:28 Red Blood Count 3.27 L, Mean Corpuscular Volume 96.3 H, Mean Corpuscular Hemoglobin 29.7, Mean Corpuscular Hemoglobin Concent 30.8 L, Red Cell Distribution Width 18.7 H, Neutrophils (%) (Auto) 67.7 H, Lymphocytes (%) (Auto ) 14.1 L, Monocytes (%) (Auto) 9.6 H, Eosinophils (%) (Auto) 3.5 H, Basophils (% ) (Auto) 0.6, Neutrophils # (Auto) 3.4, Lymphocytes # (Auto) 0.7 L, Monocytes # (Auto) 0.5, Eosinophils # (Auto) 0.2, Basophils # (Auto) 0.0, Calcium Level 9.2 , Aspartate Amino Transf (AST/SGOT) 7 L, Alanine Aminotransferase (ALT/SGPT) 33 , Alkaline Phosphatase 142 H, Total Bilirubin 0.7, Total Protein 5.6 L, Albumin 2.1 L Vital Signs Date Time Temp Pulse Resp B/P (MAP) Pulse Ox O2 Delivery O2 Flow Rate FiO2 05/19/17 12:00 96.5 81 22 130/62 (84) 91 Nasal Cannula 5.0 I&O- Last 24 Hours up to 6 AM 05/20/17 06:00 Intake Total 560 ml Output Total 1650 ml Balance -1090 ml HARRIET LEAL MD May 19, 2017 13:57
[2017-05-19] MEDS: ACETAMINOPHEN TAB 650MG DOSE (2X325MG) PO PRN ×2 (19:32→23:55)
[2017-05-19] MEDS: LEVALBUTEROL 1.25 MG/0.5 ML CONCENTRATE NEB INH PRN (20:02)
[2017-05-19] MEDS: QUEtiapine FUMARATE 50 MG TAB PO SCH (21:26)
[2017-05-19] MEDS: PROCHLORPERAZINE 5 MG TAB (S0183) PO SCH (21:26)
[2017-05-19] MEDS: traZODone 50 MG TAB PO PRN (21:27)
[2017-05-19] MEDS: REVLIMID 25 MG PO SCH (21:32)
[2017-05-20] VITALS: BP 111/56
[2017-05-20 04:00] VITALS: BP 140/65
[2017-05-20] MEDS: ONDANSETRON 4MG/2ML VIAL (J2405) IV PRN (04:15)
[2017-05-20] MEDS: LORazepam 1 MG TAB PO PRN (05:12)
[2017-05-20] MEDS: LEVOTHYROXINE 75MCG TABLET (0.075MG) PO SCH (05:12)
[2017-05-20] MEDS: LEVALBUTEROL 1.25 MG/0.5 ML CONCENTRATE NEB INH PRN ×3 (05:26→22:45)
[2017-05-20 05:43] LABS: BASO % 0.8 % (0.0-1.0); EOS # 0.3 10^3/uL (0.0-0.50); EOS % 5.3 % (0.0-3.0); IMMATURE GRANULOCYTE % 4.3 % (0-0); LYMPH % 19.6 % (24.0-44.0); MEAN CORPUSCULAR HEMOGLOBIN 29.8 pg (27.0-33.0); MEAN CORPUSCULAR HGB CONC 30.6 g/dl (32.0-36.5); MEAN CORPUSCULAR VOLUME 97.4 fl (80.0-96.0); MONO # 0.5 10^3/uL (0.0-0.8); MONO % 9.2 % (0.0-5.0); NEUTROPHILS % 60.8 % (36.0-66.0); PLATELET COUNT, AUTOMATED 199 10^3/uL (150-450); RED CELL DISTRIBUTION WIDTH 18.6 % (11.5-14.5); WHITE BLOOD COUNT 4.9 10^3/uL (4.0-10.0)
[2017-05-20] MEDS ORDERED: LevoFLOXacin 250 MG TABLET PO SCH (06:00)
[2017-05-20 06:03] LABS: ALBUMIN/GLOBULIN RATIO 0.51 (1.00-1.93); ALKALINE PHOSPHATASE 133 U/L (45-117); ALT/SGPT 30 U/L (12-78); ANION GAP 2 MEQ/L (8-16); AST/SGOT 8 U/L (15-37); BILIRUBIN,TOTAL 0.5 MG/DL (0.2-1.0); BLOOD UREA NITROGEN 11 MG/DL (7-18); CALCIUM LEVEL 9.2 MG/DL (8.8-10.2); CARBON DIOXIDE LEVEL 33 MEQ/L (21-32); CHLORIDE LEVEL 105 MEQ/L (98-107); CREATININE FOR GFR 0.67 MG/DL (0.55-1.02); GLOMERULAR FILTRATION RATE > 60.0 (>39); GLUCOSE, FASTING 189 MG/DL (83-110); MAGNESIUM LEVEL 2.5 MG/DL (1.8-2.4); POTASSIUM SERUM 3.6 MEQ/L (3.5-5.1); SODIUM LEVEL 140 MEQ/L (136-145); TOTAL PROTEIN 5.9 GM/DL (6.4-8.2)
[2017-05-20] MEDS: SLF 3 ML SYR IV SCH ×3 (06:14→21:23)
[2017-05-20 08:00] VITALS: BP 123/60
[2017-05-20] MEDS: HumaLOG INSULIN (NovoLOG) PER UNIT SC SCH ×4 (09:27→20:31)
[2017-05-20] MEDS: RIVAROXABAN 20 MG TAB (XARELTO) PO SCH (09:28)
[2017-05-20] MEDS: BISOPROLOL FUMARATE 10 MG TAB PO SCH ×2 (09:28→21:24)
[2017-05-20] MEDS: MULTIVITAMINS/MINERALS THERAP 1 TAB PO SCH (09:28)
[2017-05-20] MEDS: DIGOXIN 0.25 MG TAB PO SCH (09:28)
[2017-05-20] MEDS: VITAMIN D 1,000 INTERNATIONAL UNITS TABLET PO SCH (09:28)
[2017-05-20] MEDS: CAPTOpril 12.5 MG TAB PO SCH ×2 (09:29→21:21)
[2017-05-20] MEDS: guaiFENesin ER 600 MG TAB PO SCH ×2 (09:29→21:22)
[2017-05-20] MEDS: ACETAMINOPHEN TAB 650MG DOSE (2X325MG) PO PRN ×3 (09:38→23:53)
[2017-05-20] MEDS: MEROPENEM INJ 1 GM in D5W MINI-BAG PLUS 100 ML IV SCH ×2 (09:39→17:16)
[2017-05-20] MEDS: VANCOMYCIN HCL 1,000 MG, VIAL MATE ADAPTER 1 EACH in D5W 250 ML IV SCH ×2 (10:26→22:08)
[2017-05-20] MEDS ORDERED: VANCOMYCIN HCL 500 MG in D5W MINI-BAG PLUS 100 ML IV ONE (11:00)
[2017-05-20 11:59] VITALS: BP 116/59
[2017-05-20] MEDS: LEVALBUTEROL 1.25 MG/0.5 ML CONCENTRATE NEB NEB SCH ×2 (12:00→17:54)
[2017-05-20] MEDS: IPRATROPIUM 0.02% SOLN 0.5MG/2.5 ML NEB NEB SCH ×2 (12:00→17:54)
--- NOTE | 2017-05-20 13:28 | IPNPDOC ---
Text Note Date of Service The patient was seen on 05/20/17. 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 She was found to have a bilateral pneumonia. Patient was seen and examined at the bedside. She notes that her cough has been more productive. She has required higher amounts of supplemental oxygen. Objective: Vitals (See below) General: Lying in bed, no acute distress, comfortable, AAOx3 HEENT: NC, AT CVS: RRR, +S1S2 Lungs: Decreased breath sounds bilaterally, no wheezing / crackles / rhonchi appreciated Abdomen: Soft, ND, NT Extremities: - Edema, - Calf tenderness Assessment and plan: Sepsis - likely 2/2 bilateral community acquired pneumonia, possibly health care acquired (re: chemotherapy) - Cough has become productive in nature, has required higher amounts of supplemental oxygen - Currently on supplemental oxygen at 6 liters - CRP continues to trend down - Blood cultures 05/16: no growth at 48 hours - CTA Chest 05/16: no central PE, interim R upper lobectomy, small bilateral pleural effusions, diffuse bilateral infiltrates (some with nodular appearance) ; f/u CT recommended - Will start Vancomycin and Meropenem (Day #1); s/p Levaquin (Received 5 days) Paroxysmal atrial fibrillation / A.fib with RVR - Patient went into A.fib with RVR this morning and failed to improve with Metoprolol IV and Diltiazem IV - Discussed with Dr. Oconnell (Cardiology) - s/p ablation, c/w rate control with Bisoprolol, c/w Digoxin - c/w anticoagulation with Xarelto Multiple myeloma - on chemotherapy as an outpatient Hx of Small cell lung CA - s/p R upper lobectomy Anemia - likely 2/2 chemotherapy - Hg remains stable s/p Leukopenia - likely 2/2 chemotherapy HTN - BP well controlled - c/w Captopril and Bisoprolol - Hold diuretics Hypothyroidism - c/w Levothyroxine Anxiety - c/w Quetiapine and Lorazepam IDDM2 - c/w Levemir and ISS DLP DVT prophylaxis - on full anticoagulation with Xarelto VS,Fishbone, I+O VS, Fishbone, I+O Laboratory Tests 05/20/17 05:26 Red Blood Count 3.09 L, Mean Corpuscular Volume 97.4 H, Mean Corpuscular Hemoglobin 29.8, Mean Corpuscular Hemoglobin Concent 30.6 L, Red Cell Distribution Width 18.6 H, Neutrophils (%) (Auto) 60.8, Lymphocytes (%) (Auto) 19.6 L, Monocytes (%) (Auto) 9.2 H, Eosinophils (%) (Auto) 5.3 H, Basophils (%) (Auto) 0.8, Neutrophils # (Auto) 3.0, Lymphocytes # (Auto) 1.0 L, Monocytes # ( Auto) 0.5, Eosinophils # (Auto) 0.3, Basophils # (Auto) 0.0, Calcium Level 9.2, Aspartate Amino Transf (AST/SGOT) 8 L, Alanine Aminotransferase (ALT/SGPT) 30, Alkaline Phosphatase 133 H, Total Bilirubin 0.5, Total Protein 5.9 L, Albumin 2.0 L Vital Signs Date Time Temp Pulse Resp B/P (MAP) Pulse Ox O2 Delivery O2 Flow Rate FiO2 05/20/17 11:59 97.7 70 20 116/59 (78) 93 Nasal Cannula 6.0 I&O- Last 24 Hours up to 6 AM 05/21/17 06:00 Intake Total 900 ml Output Total 600 ml Balance 300 ml HARRIET LEAL MD May 20, 2017 13:28
--- NOTE | 2017-05-20 13:47 | PHACANCOPD ---
PHARMACY VANCOMYCIN DOSING Pt Demographics Demographics Patient Age:72 , Weight:90.800 , Gender: female Adjusted Body Weight Date: 05/20/17, Adjusted Body Weight: Kg Vancomycin Vancomycin indication: HCAP Vancomycin Target Ranges: 15-20 mcg/ml Vancomycin Load Y/N: Yes Load Dose Date Time Vancomycin Load Dose: 1500mg Date: 05/20/17 Time: 1000 Vancomycin Dose Date: 05/20/17. Current Vancomycin Dose: [1g IV Q12H] Intermittent Dosing?: No Labs Micro Microbiology 05/16/17 Blood Culture - Preliminary, Resulted No Growth after 72 hours. All specime... 05/16/17 Blood Culture - Preliminary, Resulted No Growth after 72 hours. All specime... 05/16/17 Blood Culture - Preliminary, Resulted No Growth after 72 hours. All specime... Creatinine Clearance Date:05/20/17. Estimated Creatinine Clearance: [~64ml/min]. Pending Labs Vancomycin trough level scheduled 05/22/17@0900 prior to the 5th dose Assessment and Plan Maintaining Current Dose?: Yes Reason for dose change: No Dose Change Pharmacist Note Pharmacist Note Date: 05/20/17. Pharmacist note: Day #1 empiric vancomycin initiated with a 1500mg loading dose, followed by a maintenance regimen of 1g IV Q12H for the treatment of HCAP - aiming for a goal trough of 15-20mcg/ml. A vancomycin trough has been scheduled for 05/22/17 @0900. We will continue to monitor and make dose adjustments if needed. JOANA LOWRY [facility]ARMAC[facility] May 20, 2017 13:47
[2017-05-20 15:47] VITALS: BP 129/60
[2017-05-20 20:00] VITALS: BP 157/68
[2017-05-20] MEDS: PROCHLORPERAZINE 5 MG TAB (S0183) PO SCH (21:22)
[2017-05-20] MEDS: QUEtiapine FUMARATE 50 MG TAB PO SCH (21:22)
[2017-05-20] MEDS: REVLIMID 25 MG PO SCH (21:25)
[2017-05-20] MEDS: traZODone 50 MG TAB PO PRN (21:33)
[2017-05-21] VITALS: BP 117/56
[2017-05-21] MEDS: IPRATROPIUM 0.02% SOLN 0.5MG/2.5 ML NEB NEB SCH ×4 (00:22→20:24)
[2017-05-21] MEDS: LEVALBUTEROL 1.25 MG/0.5 ML CONCENTRATE NEB NEB SCH ×4 (00:23→20:24)
[2017-05-21] MEDS: MEROPENEM INJ 1 GM in D5W MINI-BAG PLUS 100 ML IV SCH ×3 (01:27→18:03)
[2017-05-21 04:00] VITALS: BP 134/63
--- NOTE | 2017-05-21 05:00 | REPUSA ---
CLINICAL HISTORY: Abnormal lung sounds. COMMENTS: Minimal pleural effusions. The cardiac silhouette is enlarged. There is evidence for pulmonary venous congestion compatible with CHF. There is no definite radiographic evidence for a lung mass. Bony structures appear normal. IMPRESSION: 1. Enlarged cardiac silhouette. 2. Pulmonary venous congestion compatible with CHF. Minimal pleural effusions. Thank you for your kind referral of this patient.
[2017-05-21] MEDS ORDERED: FUROSEMIDE 40 MG/4 ML VIAL (J1940) IV ONE (05:30)
[2017-05-21 05:44] LABS: MEAN CORPUSCULAR HEMOGLOBIN 28.7 pg (27.0-33.0); MEAN CORPUSCULAR HGB CONC 29.7 g/dl (32.0-36.5); MEAN CORPUSCULAR VOLUME 96.6 fl (80.0-96.0); PLATELET COUNT, AUTOMATED 218 10^3/uL (150-450); RED CELL DISTRIBUTION WIDTH 18.3 % (11.5-14.5); WHITE BLOOD COUNT 5.9 10^3/uL (4.0-10.0)
[2017-05-21 05:46] LABS: POSITIVE MORPH POS FLAG
[2017-05-21] MEDS: LEVOTHYROXINE 75MCG TABLET (0.075MG) PO SCH (05:47)
[2017-05-21 05:50] LABS: POS COUNT POS FLAG
[2017-05-21 05:51] LABS: ADD MANUAL DIFFER YES; DIFF SLIDE NUMBER 21
[2017-05-21] MEDS: SLF 3 ML SYR IV SCH ×3 (05:51→21:57)
[2017-05-21 06:04] LABS: ALBUMIN 2.1 GM/DL (3.2-5.2); ALBUMIN/GLOBULIN RATIO 0.51 (1.00-1.93); ALKALINE PHOSPHATASE 137 U/L (45-117); ALT/SGPT 34 U/L (12-78); ANION GAP 3 MEQ/L (8-16); AST/SGOT 11 U/L (15-37); BILIRUBIN,TOTAL 0.5 MG/DL (0.2-1.0); BLOOD UREA NITROGEN 8 MG/DL (7-18); CALCIUM LEVEL 9.5 MG/DL (8.8-10.2); CARBON DIOXIDE LEVEL 34 MEQ/L (21-32); CHLORIDE LEVEL 105 MEQ/L (98-107); CREATININE FOR GFR 0.63 MG/DL (0.55-1.02); GLOMERULAR FILTRATION RATE > 60.0 (>39); GLUCOSE, FASTING 148 MG/DL (83-110); MAGNESIUM LEVEL 2.3 MG/DL (1.8-2.4); POTASSIUM SERUM 3.9 MEQ/L (3.5-5.1); SODIUM LEVEL 142 MEQ/L (136-145); TOTAL PROTEIN 6.2 GM/DL (6.4-8.2)
[2017-05-21 06:26] LABS: BANDS 1 % (< 11); EOSINOPHILS 6 % (0-5)
[2017-05-21 06:29] LABS: ANISOCYTOSIS 2+
[2017-05-21 08:00] VITALS: BP 118/57
[2017-05-21] MEDS: HumaLOG INSULIN (NovoLOG) PER UNIT SC SCH ×4 (08:32→21:00)
[2017-05-21] MEDS: RIVAROXABAN 20 MG TAB (XARELTO) PO SCH (08:32)
[2017-05-21] MEDS: BISOPROLOL FUMARATE 10 MG TAB PO SCH ×2 (08:33→21:57)
[2017-05-21] MEDS: CAPTOpril 12.5 MG TAB PO SCH ×2 (08:33→21:54)
[2017-05-21] MEDS: DIGOXIN 0.25 MG TAB PO SCH (08:33)
[2017-05-21] MEDS: guaiFENesin ER 600 MG TAB PO SCH ×2 (08:33→21:56)
[2017-05-21] MEDS: VITAMIN D 1,000 INTERNATIONAL UNITS TABLET PO SCH (08:33)
[2017-05-21] MEDS: MULTIVITAMINS/MINERALS THERAP 1 TAB PO SCH (08:34)
[2017-05-21] MEDS: VANCOMYCIN HCL 1,000 MG, VIAL MATE ADAPTER 1 EACH in D5W 250 ML IV SCH ×2 (09:53→21:58)
[2017-05-21] MEDS: FUROSEMIDE 40 MG/4 ML VIAL (J1940) IV SCH ×2 (09:54→18:02)
[2017-05-21 12:37] VITALS: BP 137/64
[2017-05-21 16:02] VITALS: BP 151/67
--- NOTE | 2017-05-21 16:16 | IPNPDOC ---
Text Note Date of Service The patient was seen on 05/21/17. 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 She was found to have a bilateral pneumonia. Patient was seen and examined at the bedside. Notes that her breathing is relatively unchanged from yesterday Objective: Vitals (See below) General: Lying in bed, no acute distress, comfortable, AAOx3 HEENT: NC, AT CVS: RRR, +S1S2 Lungs: Decreased breath sounds bilaterally, no wheezing / crackles / rhonchi appreciated Abdomen: Soft, ND, NT Extremities: - Edema, - Calf tenderness Assessment and plan: Sepsis - likely 2/2 bilateral community acquired pneumonia, possibly health care acquired (re: chemotherapy) - Cough remains productive - Currently on supplemental oxygen at 6 liters - remains stable - CRP has shown improvement compared to yesterday - Blood cultures 05/16: no growth at 72 hours - CTA Chest 05/16: no central PE, interim R upper lobectomy, small bilateral pleural effusions, diffuse bilateral infiltrates (some with nodular appearance) ; f/u CT recommended - c/w Vancomycin and Meropenem (Day #2); s/p Levaquin (Received 5 days) Paroxysmal atrial fibrillation / A.fib with RVR - Patient went into A.fib with RVR on 05/19, but resolved - Discussed with Dr. Oconnell (Cardiology) - s/p ablation, c/w rate control with Bisoprolol, c/w Digoxin - c/w anticoagulation with Xarelto Multiple myeloma - on chemotherapy as an outpatient Hx of Small cell lung CA - s/p R upper lobectomy Anemia - likely 2/2 chemotherapy - Hg remains stable s/p Leukopenia - likely 2/2 chemotherapy HTN - BP well controlled - c/w Captopril and Bisoprolol - Hold diuretics Hypothyroidism - c/w Levothyroxine Anxiety - c/w Quetiapine and Lorazepam IDDM2 - c/w Levemir and ISS DLP DVT prophylaxis - on full anticoagulation with Xarelto VS,Fishbone, I+O VS, Fishbone, I+O Laboratory Tests 05/21/17 05:27 Red Blood Count 3.28 L, Mean Corpuscular Volume 96.6 H, Mean Corpuscular Hemoglobin 28.7, Mean Corpuscular Hemoglobin Concent 29.7 L, Red Cell Distribution Width 18.3 H, Calcium Level 9.5, Aspartate Amino Transf (AST/SGOT) 11 L, Alanine Aminotransferase (ALT/SGPT) 34, Alkaline Phosphatase 137 H, Total Bilirubin 0.5, Total Protein 6.2 L, Albumin 2.1 L Vital Signs Date Time Temp Pulse Resp B/P (MAP) Pulse Ox O2 Delivery O2 Flow Rate FiO2 05/21/17 16:02 96.8 80 26 151/67 (95) 94 Nasal Cannula 6.0 I&O- Last 24 Hours up to 6 AM 05/22/17 06:00 Intake Total 840 ml Output Total 4050 ml Balance -3210 ml HARRIET LEAL MD May 21, 2017 16:16
[2017-05-21] MEDS: ACETAMINOPHEN TAB 650MG DOSE (2X325MG) PO PRN ×2 (17:38→23:59)
[2017-05-21 20:00] VITALS: BP 126/78
[2017-05-21] MEDS: PROCHLORPERAZINE 5 MG TAB (S0183) PO SCH (21:56)
[2017-05-21] MEDS: REVLIMID 25 MG PO SCH (21:57)
[2017-05-21] MEDS: QUEtiapine FUMARATE 50 MG TAB PO SCH (21:57)
[2017-05-21] MEDS: traZODone 50 MG TAB PO PRN (22:06)
[2017-05-22] VITALS: BP 125/67
[2017-05-22] MEDS: IPRATROPIUM 0.02% SOLN 0.5MG/2.5 ML NEB NEB SCH ×4 (00:10→20:20)
[2017-05-22] MEDS: LEVALBUTEROL 1.25 MG/0.5 ML CONCENTRATE NEB NEB SCH ×4 (00:11→20:20)
[2017-05-22] MEDS: MEROPENEM INJ 1 GM in D5W MINI-BAG PLUS 100 ML IV SCH ×3 (01:43→17:09)
[2017-05-22 04:00] VITALS: BP 115/67
[2017-05-22 05:32] LABS: MEAN CORPUSCULAR HEMOGLOBIN 29.5 pg (27.0-33.0); MEAN CORPUSCULAR HGB CONC 31.5 g/dl (32.0-36.5); MEAN CORPUSCULAR VOLUME 93.5 fl (80.0-96.0); PLATELET COUNT, AUTOMATED 219 10^3/uL (150-450); RED CELL DISTRIBUTION WIDTH 18.4 % (11.5-14.5); WHITE BLOOD COUNT 5.9 10^3/uL (4.0-10.0)
[2017-05-22] MEDS: LEVOTHYROXINE 75MCG TABLET (0.075MG) PO SCH (05:36)
[2017-05-22] MEDS: SLF 3 ML SYR IV SCH ×3 (05:36→22:00)
[2017-05-22 05:37] LABS: ADD MANUAL DIFFER YES; DIFF SLIDE NUMBER 13; POS COUNT POS FLAG; POSITIVE MORPH POS FLAG
[2017-05-22 05:51] LABS: ALBUMIN 2.2 GM/DL (3.2-5.2); ALBUMIN/GLOBULIN RATIO 0.59 (1.00-1.93); ALKALINE PHOSPHATASE 155 U/L (45-117); ALT/SGPT 38 U/L (12-78); ANION GAP 6 MEQ/L (8-16); AST/SGOT 12 U/L (15-37); BILIRUBIN,TOTAL 0.6 MG/DL (0.2-1.0); BLOOD UREA NITROGEN 9 MG/DL (7-18); CALCIUM LEVEL 9.1 MG/DL (8.8-10.2); CARBON DIOXIDE LEVEL 35 MEQ/L (21-32); CHLORIDE LEVEL 99 MEQ/L (98-107); GLOMERULAR FILTRATION RATE > 60.0 (>39); GLUCOSE, FASTING 154 MG/DL (83-110); MAGNESIUM LEVEL 2.1 MG/DL (1.8-2.4); SODIUM LEVEL 140 MEQ/L (136-145); TOTAL PROTEIN 5.9 GM/DL (6.4-8.2)
[2017-05-22 06:23] LABS: BANDS 2 % (< 11); BASOPHILS 1 % (0-4); EOSINOPHILS 4 % (0-5)
[2017-05-22 06:24] LABS: ANISOCYTOSIS 2+
[2017-05-22 08:00] VITALS: BP 130/57
[2017-05-22] MEDS: HumaLOG INSULIN (NovoLOG) PER UNIT SC SCH ×4 (09:00→21:00)
[2017-05-22] MEDS: FUROSEMIDE 40 MG/4 ML VIAL (J1940) IV SCH ×2 (09:01→17:09)
[2017-05-22] MEDS: CAPTOpril 12.5 MG TAB PO SCH ×2 (09:02→21:51)
[2017-05-22] MEDS: guaiFENesin ER 600 MG TAB PO SCH ×2 (09:02→21:51)
[2017-05-22] MEDS: BISOPROLOL FUMARATE 10 MG TAB PO SCH ×2 (09:02→21:50)
[2017-05-22] MEDS: ACETAMINOPHEN TAB 650MG DOSE (2X325MG) PO PRN ×2 (09:03→18:48)
[2017-05-22] MEDS: MULTIVITAMINS/MINERALS THERAP 1 TAB PO SCH (09:03)
[2017-05-22] MEDS: VITAMIN D 1,000 INTERNATIONAL UNITS TABLET PO SCH (09:03)
[2017-05-22] MEDS: RIVAROXABAN 20 MG TAB (XARELTO) PO SCH (09:03)
[2017-05-22] MEDS: DIGOXIN 0.25 MG TAB PO SCH (09:03)
[2017-05-22] MEDS: POTASSIUM CHLORIDE 10 MEQ SR TABLET PO SCH ×2 (09:04→21:51)
[2017-05-22] MEDS: VANCOMYCIN HCL 1,000 MG, VIAL MATE ADAPTER 1 EACH in D5W 250 ML IV SCH ×2 (10:32→21:52)
[2017-05-22] MEDS: LORazepam 1 MG TAB PO PRN ×2 (10:36→21:50)
[2017-05-22 12:00] VITALS: BP 129/62
--- NOTE | 2017-05-22 13:51 | IPNPDOC ---
Text Note Date of Service The patient was seen on 05/22/17. 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 She was found to have a bilateral pneumonia. Patient was seen and examined at the bedside. Has had improvement in her breathing. Her oxygen requirement has improved over the last few hours. Objective: Vitals (See below) General: Lying in bed, no acute distress, comfortable, AAOx3 HEENT: NC, AT CVS: RRR, +S1S2 Lungs: Decreased breath sounds bilaterally, no wheezing / crackles / rhonchi appreciated Abdomen: Soft, ND, NT Extremities: - Edema, - Calf tenderness Assessment and plan: Sepsis - likely 2/2 bilateral community acquired pneumonia, possibly health care acquired (re: chemotherapy) - Cough has improved; supplemental oxygen requirement has gone down - CRP trending down - Blood cultures 05/16: no growth at 5 days - CTA Chest 05/16: no central PE, interim R upper lobectomy, small bilateral pleural effusions, diffuse bilateral infiltrates (some with nodular appearance) - c/w Vancomycin and Meropenem (Day #3); s/p Levaquin (Received 5 days) - Continue with current course until supplemental oxygen requirement is removed Paroxysmal atrial fibrillation / A.fib with RVR - Patient went into A.fib with RVR on 05/19, but resolved - Discussed with Dr. Oconnell (Cardiology) - s/p ablation, c/w rate control with Bisoprolol, c/w Digoxin - c/w anticoagulation with Xarelto Multiple myeloma - on chemotherapy as an outpatient Hx of Small cell lung CA - s/p R upper lobectomy Anemia - likely 2/2 chemotherapy - Hg remains stable s/p Leukopenia - likely 2/2 chemotherapy HTN - BP well controlled - c/w Captopril and Bisoprolol - Hold diuretics Hypothyroidism - c/w Levothyroxine Anxiety - c/w Quetiapine and Lorazepam IDDM2 - c/w Levemir and ISS DLP DVT prophylaxis - on full anticoagulation with Xarelto VS,Fishbone, I+O VS, Fishbone, I+O Laboratory Tests 05/22/17 05:07 Red Blood Count 3.39 L, Mean Corpuscular Volume 93.5, Mean Corpuscular Hemoglobin 29.5, Mean Corpuscular Hemoglobin Concent 31.5 L, Red Cell Distribution Width 18.4 H, Calcium Level 9.1, Aspartate Amino Transf (AST/SGOT) 12 L, Alanine Aminotransferase (ALT/SGPT) 38, Alkaline Phosphatase 155 H, Total Bilirubin 0.6, Total Protein 5.9 L, Albumin 2.2 L Vital Signs Date Time Temp Pulse Resp B/P (MAP) Pulse Ox O2 Delivery O2 Flow Rate FiO2 05/22/17 12:00 97.8 67 20 129/62 (84) 96 05/22/17 08:30 Nasal Cannula 4.0 I&O- Last 24 Hours up to 6 AM 05/23/17 06:00 Intake Total 480 ml Output Total 1300 ml Balance -820 ml HARRIET LEAL MD May 22, 2017 13:51
[2017-05-22 16:00] VITALS: BP 134/69
[2017-05-22 20:00] VITALS: BP 132/76
[2017-05-22] MEDS: REVLIMID 25 MG PO SCH (21:49)
[2017-05-22] MEDS: PROCHLORPERAZINE 5 MG TAB (S0183) PO SCH (21:50)
[2017-05-22] MEDS: QUEtiapine FUMARATE 50 MG TAB PO SCH (21:50)
[2017-05-23] VITALS: BP 126/60
[2017-05-23] MEDS: MEROPENEM INJ 1 GM in D5W MINI-BAG PLUS 100 ML IV SCH ×3 (01:14→18:05)
[2017-05-23] MEDS: IPRATROPIUM 0.02% SOLN 0.5MG/2.5 ML NEB NEB SCH ×4 (01:55→20:22)
[2017-05-23] MEDS: LEVALBUTEROL 1.25 MG/0.5 ML CONCENTRATE NEB NEB SCH ×4 (01:55→20:22)
[2017-05-23 03:39] VITALS: BP 112/60
[2017-05-23] MEDS: LEVOTHYROXINE 75MCG TABLET (0.075MG) PO SCH (05:17)
[2017-05-23] MEDS: SLF 3 ML SYR IV SCH ×3 (05:17→22:00)
[2017-05-23 05:20] LABS: BASO # 0.1 10^3/uL (0.0-0.2); BASO % 0.9 % (0.0-1.0); EOS # 0.2 10^3/uL (0.0-0.50); EOS % 3.6 % (0.0-3.0); LYMPH # 1.1 10^3/uL (1.5-4.5); LYMPH % 16.6 % (24.0-44.0); MEAN CORPUSCULAR HEMOGLOBIN 29.6 pg (27.0-33.0); MEAN CORPUSCULAR HGB CONC 31.4 g/dl (32.0-36.5); MEAN CORPUSCULAR VOLUME 94.2 fl (80.0-96.0); MONO # 0.6 10^3/uL (0.0-0.8); MONO % 8.7 % (0.0-5.0); NEUTROPHILS # 4.4 10^3/uL (1.8-7.7); NEUTROPHILS % 66.2 % (36.0-66.0); PLATELET COUNT, AUTOMATED 243 10^3/uL (150-450); RED CELL DISTRIBUTION WIDTH 18.9 % (11.5-14.5); WHITE BLOOD COUNT 6.7 10^3/uL (4.0-10.0)
[2017-05-23 05:41] LABS: ALBUMIN 2.3 GM/DL (3.2-5.2); ALBUMIN/GLOBULIN RATIO 0.58 (1.00-1.93); ALKALINE PHOSPHATASE 147 U/L (45-117); ALT/SGPT 31 U/L (12-78); ANION GAP 7 MEQ/L (8-16); AST/SGOT 9 U/L (7-37); BILIRUBIN,TOTAL 0.7 MG/DL (0.2-1.0); BLOOD UREA NITROGEN 11 MG/DL (7-18); CALCIUM LEVEL 9.2 MG/DL (8.8-10.2); CARBON DIOXIDE LEVEL 32 MEQ/L (21-32); CHLORIDE LEVEL 100 MEQ/L (98-107); CREATININE FOR GFR 0.74 MG/DL (0.55-1.02); GLOMERULAR FILTRATION RATE > 60.0 (>39); GLUCOSE, FASTING 219 MG/DL (83-110); MAGNESIUM LEVEL 2.1 MG/DL (1.8-2.4); POTASSIUM SERUM 3.1 MEQ/L (3.5-5.1); SODIUM LEVEL 139 MEQ/L (136-145); TOTAL PROTEIN 6.3 GM/DL (6.4-8.2)
[2017-05-23 07:47] VITALS: BP 117/73
[2017-05-23] MEDS: FUROSEMIDE 40 MG/4 ML VIAL (J1940) IV SCH (08:38)
[2017-05-23] MEDS: HumaLOG INSULIN (NovoLOG) PER UNIT SC SCH ×4 (08:39→21:00)
[2017-05-23] MEDS: BISOPROLOL FUMARATE 10 MG TAB PO SCH ×2 (08:39→20:39)
[2017-05-23] MEDS: ACETAMINOPHEN TAB 650MG DOSE (2X325MG) PO PRN (08:39)
[2017-05-23] MEDS: VITAMIN D 1,000 INTERNATIONAL UNITS TABLET PO SCH (08:40)
[2017-05-23] MEDS: RIVAROXABAN 20 MG TAB (XARELTO) PO SCH (08:40)
[2017-05-23] MEDS: LORazepam 1 MG TAB PO PRN ×2 (08:40→20:39)
[2017-05-23] MEDS: CAPTOpril 12.5 MG TAB PO SCH ×2 (08:40→20:39)
[2017-05-23] MEDS: POTASSIUM CHLORIDE 10 MEQ SR TABLET PO SCH ×3 (08:40→20:38)
[2017-05-23] MEDS: DIGOXIN 0.25 MG TAB PO SCH (08:41)
[2017-05-23] MEDS: MULTIVITAMINS/MINERALS THERAP 1 TAB PO SCH (08:41)
[2017-05-23] MEDS: guaiFENesin ER 600 MG TAB PO SCH ×2 (08:56→20:39)
[2017-05-23] MEDS: VANCOMYCIN HCL 1,000 MG, VIAL MATE ADAPTER 1 EACH in D5W 250 ML IV SCH ×2 (10:58→22:30)
[2017-05-23 11:23] VITALS: BP 121/59
[2017-05-23] MEDS ORDERED: DIGO0.25 PO (14:35)
--- NOTE | 2017-05-23 14:37 | IPNPDOC ---
Text Note Date of Service The patient was seen on 05/23/17. 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 She was found to have a bilateral pneumonia. Patient was seen and examined at the bedside. Breathing continues to improve. She feels more energetic. Notes productive cough is doing better. Objective: Vitals (See below) General: Lying in bed, no acute distress, comfortable, AAOx3 HEENT: NC, AT CVS: RRR, +S1S2 Lungs: Decreased breath sounds bilaterally, no wheezing / crackles / rhonchi appreciated Abdomen: Soft, ND, NT Extremities: - Edema, - Calf tenderness Assessment and plan: Sepsis - likely 2/2 bilateral community acquired pneumonia, possibly health care acquired (re: chemotherapy) - Cough continues to improve; oxygen requirement has been brought down to 2L NC - CRP continues to improve - Blood cultures 05/16: no growth at 5 days - CTA Chest 05/16: no central PE, interim R upper lobectomy, small bilateral pleural effusions, diffuse bilateral infiltrates (some with nodular appearance) - c/w Vancomycin and Meropenem (Day #4); s/p Levaquin (Received 5 days) - Continue with current course until supplemental oxygen requirement is removed Paroxysmal atrial fibrillation / A.fib with RVR - Patient went into A.fib with RVR on 05/19, but resolved - Discussed with Dr. Oconnell (Cardiology) - s/p ablation, c/w rate control with Bisoprolol, c/w Digoxin - c/w anticoagulation with Xarelto Multiple myeloma - on chemotherapy as an outpatient Hx of Small cell lung CA - s/p R upper lobectomy Anemia - likely 2/2 chemotherapy - Hg remains stable s/p Leukopenia - likely 2/2 chemotherapy HTN - BP well controlled - c/w Captopril and Bisoprolol - Diuretics restarted with IV - Will switch Furosemide from 40 IV BID to 80 PO BID Hypothyroidism - c/w Levothyroxine Anxiety - c/w Quetiapine and Lorazepam IDDM2 - c/w Levemir and ISS DLP DVT prophylaxis - on full anticoagulation with Xarelto VS,Fishbone, I+O VS, Fishbone, I+O Laboratory Tests 05/23/17 04:35 Red Blood Count 3.62 L, Mean Corpuscular Volume 94.2, Mean Corpuscular Hemoglobin 29.6, Mean Corpuscular Hemoglobin Concent 31.4 L, Red Cell Distribution Width 18.9 H, Neutrophils (%) (Auto) 66.2 H, Lymphocytes (%) (Auto ) 16.6 L, Monocytes (%) (Auto) 8.7 H, Eosinophils (%) (Auto) 3.6 H, Basophils (% ) (Auto) 0.9, Neutrophils # (Auto) 4.4, Lymphocytes # (Auto) 1.1 L, Monocytes # (Auto) 0.6, Eosinophils # (Auto) 0.2, Basophils # (Auto) 0.1, Calcium Level 9.2 , Aspartate Amino Transf (AST/SGOT) 9, Alanine Aminotransferase (ALT/SGPT) 31, Alkaline Phosphatase 147 H, Total Bilirubin 0.7, Total Protein 6.3 L, Albumin 2.3 L Vital Signs Date Time Temp Pulse Resp B/P (MAP) Pulse Ox O2 Delivery O2 Flow Rate FiO2 05/23/17 11:23 97.4 65 18 121/59 (79) 93 Nasal Cannula 2.0 I&O- Last 24 Hours up to 6 AM 05/24/17 06:00 Intake Total 910 ml Output Total 600 ml Balance 310 ml HARRIET LEAL MD May 23, 2017 14:37
[2017-05-23 15:30] VITALS: BP 125/61
[2017-05-23] MEDS: FUROSEMIDE 80 MG TAB PO SCH (18:06)
[2017-05-23 20:00] VITALS: BP 135/63
[2017-05-23] MEDS: REVLIMID 25 MG PO SCH (20:38)
[2017-05-23] MEDS: PROCHLORPERAZINE 5 MG TAB (S0183) PO SCH (20:39)
[2017-05-23] MEDS: traZODone 50 MG TAB PO PRN (20:39)
[2017-05-23] MEDS: QUEtiapine FUMARATE 50 MG TAB PO SCH (20:39)
[2017-05-24] VITALS: BP 124/86
[2017-05-24] MEDS: MEROPENEM INJ 1 GM in D5W MINI-BAG PLUS 100 ML IV SCH ×3 (00:09→17:28)
[2017-05-24] MEDS: ONDANSETRON 4MG/2ML VIAL (J2405) IV PRN (01:20)
[2017-05-24] MEDS: IPRATROPIUM 0.02% SOLN 0.5MG/2.5 ML NEB NEB SCH ×4 (02:00→20:06)
[2017-05-24] MEDS: LEVALBUTEROL 1.25 MG/0.5 ML CONCENTRATE NEB NEB SCH ×4 (02:00→20:07)
[2017-05-24 04:00] VITALS: BP 116/68
[2017-05-24 05:15] LABS: BASO # 0.1 10^3/uL (0.0-0.2); BASO % 0.9 % (0.0-1.0); EOS # 0.2 10^3/uL (0.0-0.50); EOS % 3.8 % (0.0-3.0); IMMATURE GRANULOCYTE % 2.2 % (0-0); LYMPH # 1.1 10^3/uL (1.5-4.5); LYMPH % 17.6 % (24.0-44.0); MEAN CORPUSCULAR HEMOGLOBIN 28.9 pg (27.0-33.0); MEAN CORPUSCULAR HGB CONC 30.4 g/dl (32.0-36.5); MONO # 0.6 10^3/uL (0.0-0.8); NEUTROPHILS # 4.1 10^3/uL (1.8-7.7); NEUTROPHILS % 65.5 % (36.0-66.0); PLATELET COUNT, AUTOMATED 233 10^3/uL (150-450); RED CELL DISTRIBUTION WIDTH 19.1 % (11.5-14.5); WHITE BLOOD COUNT 6.3 10^3/uL (4.0-10.0)
[2017-05-24 05:31] LABS: ALBUMIN 2.3 GM/DL (3.2-5.2); ALBUMIN/GLOBULIN RATIO 0.64 (1.00-1.93); ALKALINE PHOSPHATASE 126 U/L (45-117); ALT/SGPT 25 U/L (12-78); ANION GAP 7 MEQ/L (8-16); AST/SGOT 8 U/L (7-37); BILIRUBIN,TOTAL 0.5 MG/DL (0.2-1.0); BLOOD UREA NITROGEN 11 MG/DL (7-18); CALCIUM LEVEL 8.5 MG/DL (8.8-10.2); CARBON DIOXIDE LEVEL 29 MEQ/L (21-32); CHLORIDE LEVEL 107 MEQ/L (98-107); CREATININE FOR GFR 0.81 MG/DL (0.55-1.02); GLOMERULAR FILTRATION RATE > 60.0 (>39); GLUCOSE, FASTING 144 MG/DL (83-110); MAGNESIUM LEVEL 2.2 MG/DL (1.8-2.4); SODIUM LEVEL 143 MEQ/L (136-145); TOTAL PROTEIN 5.9 GM/DL (6.4-8.2)
[2017-05-24] MEDS: LEVOTHYROXINE 75MCG TABLET (0.075MG) PO SCH (06:42)
[2017-05-24] MEDS: SLF 3 ML SYR IV SCH ×3 (06:42→21:50)
[2017-05-24 07:34] VITALS: BP 107/55
[2017-05-24] MEDS: CAPTOpril 12.5 MG TAB PO SCH ×2 (08:35→21:48)
[2017-05-24] MEDS: DIGOXIN 0.25 MG TAB PO SCH (08:51)
[2017-05-24] MEDS: HumaLOG INSULIN (NovoLOG) PER UNIT SC SCH ×4 (08:51→21:00)
[2017-05-24] MEDS: POTASSIUM CHLORIDE 10 MEQ SR TABLET PO SCH ×2 (08:53→21:49)
[2017-05-24] MEDS: MULTIVITAMINS/MINERALS THERAP 1 TAB PO SCH (08:53)
[2017-05-24] MEDS: FUROSEMIDE 80 MG TAB PO SCH ×2 (08:53→17:29)
[2017-05-24] MEDS: VITAMIN D 1,000 INTERNATIONAL UNITS TABLET PO SCH (08:54)
[2017-05-24] MEDS: guaiFENesin ER 600 MG TAB PO SCH ×2 (08:54→21:48)
[2017-05-24] MEDS: RIVAROXABAN 20 MG TAB (XARELTO) PO SCH (08:54)
[2017-05-24] MEDS: VANCOMYCIN HCL 1,000 MG, VIAL MATE ADAPTER 1 EACH in D5W 250 ML IV SCH ×2 (08:55→21:51)
[2017-05-24] MEDS: BISOPROLOL FUMARATE 10 MG TAB PO SCH ×2 (08:55→21:48)
[2017-05-24] MEDS: LORazepam 1 MG TAB PO PRN ×2 (10:25→21:48)
[2017-05-24 11:52] VITALS: BP 122/73
--- NOTE | 2017-05-24 13:16 | IPNPDOC ---
Text Note Date of Service The patient was seen on 05/24/17. 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 She was found to have a bilateral pneumonia. Patient was seen and examined at the bedside. Has been continuing to improve and requiring less supplemental oxygen. She denies any chest pain, sputum production or wheezing. Objective: Vitals (See below) General: Lying in bed, no acute distress, comfortable, AAOx3 HEENT: NC, AT CVS: RRR, +S1S2 Lungs: Decreased breath sounds bilaterally, no wheezing / crackles / rhonchi appreciated Abdomen: Soft, ND, NT Extremities: - Edema, - Calf tenderness Assessment and plan: Sepsis - likely 2/2 bilateral pneumonia; coverage for MRSA and Gram negative etiology, likely health care acquired (re: immunocompromised 2/2 chemotherapy) - Cough continues to improve; oxygen requirement has been only 1L this morning - CRP continues to improve - Blood cultures 05/16: no growth at 5 days; Sputum cultures 05/23: Pending - CTA Chest 05/16: no central PE, interim R upper lobectomy, small bilateral pleural effusions, diffuse bilateral infiltrates (some with nodular appearance) - c/w Vancomycin and Meropenem (Day #5 of 7); s/p Levaquin (Received 5 days) - Continue with current course until supplemental oxygen requirement is removed Paroxysmal atrial fibrillation / A.fib with RVR - Patient went into A.fib with RVR on 05/19, but resolved - Discussed with Dr. Oconnell (Cardiology) - s/p ablation, c/w rate control with Bisoprolol, c/w Digoxin - c/w anticoagulation with Xarelto Multiple myeloma - immunocompromised - on chemotherapy as an outpatient Hx of Small cell lung CA - s/p R upper lobectomy Anemia - likely 2/2 chemotherapy - Hg remains stable s/p Leukopenia - likely 2/2 chemotherapy HTN - BP well controlled - c/w Captopril and Bisoprolol - c/w Furosemide 80 PO BID Hypothyroidism - c/w Levothyroxine Anxiety - c/w Quetiapine and Lorazepam IDDM2 - c/w Levemir and ISS DLP DVT prophylaxis - on full anticoagulation with Xarelto VS,Fishbone, I+O VS, Fishbone, I+O Laboratory Tests 05/24/17 04:42 Red Blood Count 3.43 L, Mean Corpuscular Volume 95.0, Mean Corpuscular Hemoglobin 28.9, Mean Corpuscular Hemoglobin Concent 30.4 L, Red Cell Distribution Width 19.1 H, Neutrophils (%) (Auto) 65.5, Lymphocytes (%) (Auto) 17.6 L, Monocytes (%) (Auto) 10.0 H, Eosinophils (%) (Auto) 3.8 H, Basophils (% ) (Auto) 0.9, Neutrophils # (Auto) 4.1, Lymphocytes # (Auto) 1.1 L, Monocytes # (Auto) 0.6, Eosinophils # (Auto) 0.2, Basophils # (Auto) 0.1, Calcium Level 8.5 L, Aspartate Amino Transf (AST/SGOT) 8, Alanine Aminotransferase (ALT/SGPT) 25, Alkaline Phosphatase 126 H, Total Bilirubin 0.5, Total Protein 5.9 L, Albumin 2.3 L Vital Signs Date Time Temp Pulse Resp B/P (MAP) Pulse Ox O2 Delivery O2 Flow Rate FiO2 05/24/17 11:52 97.6 69 18 122/73 (89) 95 Nasal Cannula 1.0 I&O- Last 24 Hours up to 6 AM 05/25/17 06:00 Intake Total 610 ml Output Total 300 ml Balance 310 ml HARRIET LEAL MD May 24, 2017 13:16
[2017-05-24 16:00] VITALS: BP 144/66
[2017-05-24 20:00] VITALS: BP 143/64
[2017-05-24] MEDS: traZODone 50 MG TAB PO PRN (21:48)
[2017-05-24] MEDS: REVLIMID 25 MG PO SCH (21:48)
[2017-05-24] MEDS: QUEtiapine FUMARATE 50 MG TAB PO SCH (21:48)
[2017-05-24] MEDS: PROCHLORPERAZINE 5 MG TAB (S0183) PO SCH (21:49)
[2017-05-25] VITALS (7 sets, daily range): BP systolic 98–139; BP diastolic 52–79
[2017-05-25] MEDS: MEROPENEM INJ 1 GM in D5W MINI-BAG PLUS 100 ML IV SCH ×3 (00:38→17:44)
[2017-05-25] MEDS: IPRATROPIUM 0.02% SOLN 0.5MG/2.5 ML NEB NEB SCH ×4 (01:51→20:17)
[2017-05-25] MEDS: LEVALBUTEROL 1.25 MG/0.5 ML CONCENTRATE NEB NEB SCH ×4 (01:51→20:18)
[2017-05-25] MEDS: LEVOTHYROXINE 75MCG TABLET (0.075MG) PO SCH (05:49)
[2017-05-25] MEDS: SLF 3 ML SYR IV SCH ×3 (05:49→21:09)
[2017-05-25] MEDS: LORazepam 1 MG TAB PO PRN (05:49)
[2017-05-25] MEDS: HumaLOG INSULIN (NovoLOG) PER UNIT SC SCH ×4 (07:30→21:00)
[2017-05-25 08:56] LABS: BASO % 0.4 % (0.0-1.0); IMMATURE GRANULOCYTE % 3.6 % (0-0); LYMPH # 0.8 10^3/uL (1.5-4.5); LYMPH % 10.1 % (24.0-44.0); MEAN CORPUSCULAR HEMOGLOBIN 29.7 pg (27.0-33.0); MEAN CORPUSCULAR HGB CONC 31.4 g/dl (32.0-36.5); MEAN CORPUSCULAR VOLUME 94.5 fl (80.0-96.0); MONO # 0.7 10^3/uL (0.0-0.8); MONO % 9.7 % (0.0-5.0); NEUTROPHILS # 5.8 10^3/uL (1.8-7.7); NEUTROPHILS % 76.2 % (36.0-66.0); PLATELET COUNT, AUTOMATED 258 10^3/uL (150-450); RED CELL DISTRIBUTION WIDTH 19.2 % (11.5-14.5); WHITE BLOOD COUNT 7.6 10^3/uL (4.0-10.0)
[2017-05-25] MEDS: BISOPROLOL FUMARATE 10 MG TAB PO SCH ×2 (09:03→21:08)
[2017-05-25] MEDS: VITAMIN D 1,000 INTERNATIONAL UNITS TABLET PO SCH (09:04)
[2017-05-25] MEDS: RIVAROXABAN 20 MG TAB (XARELTO) PO SCH (09:04)
[2017-05-25] MEDS: MULTIVITAMINS/MINERALS THERAP 1 TAB PO SCH (09:04)
[2017-05-25] MEDS: guaiFENesin ER 600 MG TAB PO SCH ×2 (09:04→21:07)
[2017-05-25] MEDS: POTASSIUM CHLORIDE 10 MEQ SR TABLET PO SCH ×2 (09:04→21:06)
[2017-05-25] MEDS: CAPTOpril 12.5 MG TAB PO SCH ×2 (09:05→21:04)
[2017-05-25] MEDS: DIGOXIN 0.25 MG TAB PO SCH (09:05)
[2017-05-25] MEDS: FUROSEMIDE 80 MG TAB PO SCH ×2 (09:13→17:43)
[2017-05-25 09:16] LABS: ALBUMIN 2.6 GM/DL (3.2-5.2); ALBUMIN/GLOBULIN RATIO 0.63 (1.00-1.93); ALKALINE PHOSPHATASE 127 U/L (45-117); ALT/SGPT 31 U/L (12-78); ANION GAP 8 MEQ/L (8-16); AST/SGOT 10 U/L (7-37); BILIRUBIN,TOTAL 0.4 MG/DL (0.2-1.0); BLOOD UREA NITROGEN 16 MG/DL (7-18); CALCIUM LEVEL 8.4 MG/DL (8.8-10.2); CARBON DIOXIDE LEVEL 27 MEQ/L (21-32); CHLORIDE LEVEL 102 MEQ/L (98-107); CREATININE FOR GFR 0.83 MG/DL (0.55-1.02); GLOMERULAR FILTRATION RATE > 60.0 (>39); GLUCOSE, FASTING 150 MG/DL (83-110); MAGNESIUM LEVEL 2.2 MG/DL (1.8-2.4); POTASSIUM SERUM 3.9 MEQ/L (3.5-5.1); SODIUM LEVEL 137 MEQ/L (136-145); TOTAL PROTEIN 6.7 GM/DL (6.4-8.2)
[2017-05-25] MEDS: VANCOMYCIN HCL 1,000 MG, VIAL MATE ADAPTER 1 EACH in D5W 250 ML IV SCH ×2 (09:52→21:09)
[2017-05-25] MEDS: ONDANSETRON 4MG/2ML VIAL (J2405) IV PRN ×2 (10:22→21:09)
--- NOTE | 2017-05-25 11:04 | IPNPDOC ---
Text Note Date of Service The patient was seen on 05/25/17. 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 She was found to have a bilateral pneumonia. Patient was seen and examined at the bedside. Has been working with physical therapy this morning. Has not had any issues, although her oxygenation was noted to have dropped while ambulating. She reports a cough, but her requirement of supplemental oxygen has decreased. Objective: Vitals (See below) General: Lying in bed, no acute distress, comfortable, AAOx3 HEENT: NC, AT CVS: RRR, +S1S2 Lungs: Decreased breath sounds bilaterally, no wheezing / crackles / rhonchi appreciated Abdomen: Soft, ND, NT Extremities: - Edema, - Calf tenderness Assessment and plan: Sepsis - likely 2/2 bilateral pneumonia; coverage for MRSA and Gram negative etiology, likely health care acquired (re: immunocompromised 2/2 chemotherapy) - Almost complete resolution of cough; oxygen remains at 1L, as started ambulation with minimal oxygen requirement - CRP still tending down - Blood cultures 05/16: No growth at 5 days; Sputum cultures 05/23: Yeast like organisms - CTA Chest 05/16: no central PE, interim R upper lobectomy, small bilateral pleural effusions, diffuse bilateral infiltrates (some with nodular appearance) - c/w Vancomycin and Meropenem (Day #6 of 7); s/p Levaquin (Received 5 days) - Current antibiotic course until off oxygen supplement Paroxysmal atrial fibrillation / A.fib with RVR - Patient went into A.fib with RVR on 05/19, but resolved - Discussed with Dr. Oconnell (Cardiology) - s/p ablation, c/w rate control with Bisoprolol, c/w Digoxin - c/w anticoagulation with Xarelto Multiple myeloma - immunocompromised - on chemotherapy; Revlimid Hx of Small cell lung CA - s/p R upper lobectomy Anemia - likely 2/2 chemotherapy - Hg remains stable s/p Leukopenia - likely 2/2 chemotherapy HTN - BP well controlled - c/w Captopril and Bisoprolol - c/w Furosemide 80 PO BID Hypothyroidism - c/w Levothyroxine Anxiety - c/w Quetiapine and Lorazepam IDDM2 - c/w Levemir and ISS DLP DVT prophylaxis - on full anticoagulation with Xarelto VS,Fishbone, I+O VS, Fishbone, I+O Laboratory Tests 05/25/17 04:40 Red Blood Count 3.47 L, Mean Corpuscular Volume 94.5, Mean Corpuscular Hemoglobin 29.7, Mean Corpuscular Hemoglobin Concent 31.4 L, Red Cell Distribution Width 19.2 H, Neutrophils (%) (Auto) 76.2 H, Lymphocytes (%) (Auto ) 10.1 L, Monocytes (%) (Auto) 9.7 H, Eosinophils (%) (Auto) 0.0, Basophils (%) (Auto) 0.4, Neutrophils # (Auto) 5.8, Lymphocytes # (Auto) 0.8 L, Monocytes # ( Auto) 0.7, Eosinophils # (Auto) 0.0, Basophils # (Auto) 0.0, Calcium Level 8.4 L , Aspartate Amino Transf (AST/SGOT) 10, Alanine Aminotransferase (ALT/SGPT) 31, Alkaline Phosphatase 127 H, Total Bilirubin 0.4, Total Protein 6.7, Albumin 2.6 L Vital Signs Date Time Temp Pulse Resp B/P (MAP) Pulse Ox O2 Delivery O2 Flow Rate FiO2 05/25/17 09:05 72 05/25/17 09:05 113/79 05/25/17 07:15 97.5 20 93 Nasal Cannula 1.0 I&O- Last 24 Hours up to 6 AM 05/26/17 06:00 Intake Total 360 ml Output Total 1600 ml Balance -1240 ml HARRIET LEAL MD May 25, 2017 11:04
[2017-05-25] MEDS ORDERED: GI COCKTAIL 50ML BTL(HYOSCYAMINE/MAALOX/LIDOCAINE VISCOUS)(1:3:1) PO ONE (16:45)
[2017-05-25] MEDS: REVLIMID 25 MG PO SCH (21:00)
[2017-05-25] MEDS: PROCHLORPERAZINE 5 MG TAB (S0183) PO SCH (21:05)
[2017-05-25] MEDS: QUEtiapine FUMARATE 50 MG TAB PO SCH (21:08)
[2017-05-25] MEDS: traZODone 50 MG TAB PO PRN (21:09)
[2017-05-26] MEDS: MEROPENEM INJ 1 GM in D5W MINI-BAG PLUS 100 ML IV SCH (01:20)
[2017-05-26] MEDS: IPRATROPIUM 0.02% SOLN 0.5MG/2.5 ML NEB NEB SCH ×2 (01:54→06:56)
[2017-05-26] MEDS: LEVALBUTEROL 1.25 MG/0.5 ML CONCENTRATE NEB NEB SCH ×2 (01:54→06:56)
[2017-05-26 02:06] VITALS: BP 102/50
[2017-05-26 04:00] VITALS: BP 123/58
[2017-05-26 05:37] LABS: BASO # 0.1 10^3/uL (0.0-0.2); BASO % 1.1 % (0.0-1.0); EOS # 0.2 10^3/uL (0.0-0.50); EOS % 2.4 % (0.0-3.0); IMMATURE GRANULOCYTE % 1.6 % (0-0); LYMPH # 1.1 10^3/uL (1.5-4.5); MEAN CORPUSCULAR HGB CONC 30.3 g/dl (32.0-36.5); MEAN CORPUSCULAR VOLUME 95.6 fl (80.0-96.0); MONO # 0.5 10^3/uL (0.0-0.8); MONO % 7.5 % (0.0-5.0); NEUTROPHILS # 4.4 10^3/uL (1.8-7.7); NEUTROPHILS % 69.4 % (36.0-66.0); PLATELET COUNT, AUTOMATED 205 10^3/uL (150-450); RED CELL DISTRIBUTION WIDTH 19.2 % (11.5-14.5); WHITE BLOOD COUNT 6.3 10^3/uL (4.0-10.0)
[2017-05-26] MEDS: LEVOTHYROXINE 75MCG TABLET (0.075MG) PO SCH (05:48)
[2017-05-26] MEDS: SLF 3 ML SYR IV SCH (05:49)
[2017-05-26] MEDS ORDERED: LevoFLOXacin 500 MG TABLET PO SCH (06:00)
[2017-05-26 06:04] LABS: ALBUMIN 2.5 GM/DL (3.2-5.2); ALBUMIN/GLOBULIN RATIO 0.69 (1.00-1.93); ALKALINE PHOSPHATASE 117 U/L (45-117); ALT/SGPT 33 U/L (12-78); ANION GAP 6 MEQ/L (8-16); AST/SGOT 12 U/L (7-37); BILIRUBIN,TOTAL 0.8 MG/DL (0.2-1.0); BLOOD UREA NITROGEN 15 MG/DL (7-18); CALCIUM LEVEL 8.2 MG/DL (8.8-10.2); CARBON DIOXIDE LEVEL 30 MEQ/L (21-32); CHLORIDE LEVEL 103 MEQ/L (98-107); CREATININE FOR GFR 0.69 MG/DL (0.55-1.02); GLOMERULAR FILTRATION RATE > 60.0 (>39); GLUCOSE, FASTING 108 MG/DL (83-110); MAGNESIUM LEVEL 2.3 MG/DL (1.8-2.4); POTASSIUM SERUM 3.7 MEQ/L (3.5-5.1); SODIUM LEVEL 139 MEQ/L (136-145); TOTAL PROTEIN 6.1 GM/DL (6.4-8.2)
[2017-05-26 07:20] VITALS: BP 106/60
[2017-05-26] MEDS: HumaLOG INSULIN (NovoLOG) PER UNIT SC SCH (08:33)
[2017-05-26] MEDS: RIVAROXABAN 20 MG TAB (XARELTO) PO SCH (08:34)
[2017-05-26] MEDS: VITAMIN D 1,000 INTERNATIONAL UNITS TABLET PO SCH (08:34)
[2017-05-26] MEDS: guaiFENesin ER 600 MG TAB PO SCH (08:34)
[2017-05-26] MEDS: POTASSIUM CHLORIDE 10 MEQ SR TABLET PO SCH (08:34)
[2017-05-26] MEDS: MULTIVITAMINS/MINERALS THERAP 1 TAB PO SCH (08:34)
[2017-05-26 08:47] VITALS: BP 118/52
[2017-05-26] MEDS: DIGOXIN 0.25 MG TAB PO SCH (08:47)
[2017-05-26] MEDS: CAPTOpril 12.5 MG TAB PO SCH (08:47)
[2017-05-26] MEDS: FUROSEMIDE 80 MG TAB PO SCH (08:47)
[2017-05-26] MEDS: BISOPROLOL FUMARATE 10 MG TAB PO SCH (08:48)
[2017-05-26] MEDS ORDERED: LEVA1TAB2 PO (11:19)
[2017-05-26] MEDS ORDERED: NYSTATIN 500,000 U/5 ML SUSP UDC SS ONE (12:30)
[2017-05-26] MEDS ORDERED: NYST50SS SS (13:42)
--- NOTE | 2017-05-26 15:36 | DS.PDOC ---
Discharge Summary General Date of Admission May 16, 2017 at 16:11 Date of Discharge 05/26/17 Attending Physician: KIRSTEN CLAYTON MD Discharge Summary PROCEDURES PERFORMED DURING STAY: None. ADMITTING/DISCHARGE DIAGNOSES: 1. Sepsis 2/2 Bilateral pneumonia 2. Paroxysmal atrial fibrillation 3. History of multiple myeloma on chemotherapy 4. History of small cell lung cancer status post lobectomy 5. Chronic anemia on chemotherapy stable 6. Hypertension 7. Hypothyroidism 8. Anxiety 9. Diabetes mellitus COMPLICATIONS/CHIEF COMPLAINT: Shortness of breath HISTORY OF PRESENT ILLNESS/HOSPITAL COURSE: This is a 72-year-old female past medical history of multiple myeloma on chemotherapy, paroxysmal atrial fibrillation on Xarelto, hyperlipidemia, hypertension, diabetes, hypothyroidism, who presents complaining of a nonproductive cough, mild hemoptysis, presented to urgent care today and referred to the ED. Patient started to develop low-grade temperatures while in the emergency department. Was also hypoxic requiring 3 L oxygen nasal cannula. Patient was initially placed on Levaquin, and further broadened to and meropenem with significant improvement of her symptoms as well as her oxygen requirements. Patient tolerated therapy well and will be discharged home today with 2 additional days of by mouth antibiotics. DISCHARGE MEDICATIONS: Please see below. ALLERGIES: Please see below. PHYSICAL EXAMINATION ON DISCHARGE: Vitals: (see below) General: No acute distress, laying comfortably in bed. HEENT: Moist mucous membranes. Neck: No JVD or lymphadenopathy Cardiac: RRR, No murmurs Pulm: Minimal crackles at the bases b/l. No wheezing, rhonchi Abd: NT/ND + BS Ext: No edema or cyanosis LABORATORY DATA: Please see below. IMAGING: PROGNOSIS: Guarded ACTIVITY: As tolerated. DIET: Low-sodium/carbohydrate consistent DISCHARGE PLAN/DISPOSITION: Home DISCHARGE INSTRUCTIONS: 1. Follow-up with PCP in 1-2 weeks. DISCHARGE CONDITION: Stable. TIME SPENT ON DISCHARGE: Greater than 30 minutes. Vital Signs/I&Os Vital Signs Date Time Temp Pulse Resp B/P (MAP) Pulse Ox O2 Delivery O2 Flow Rate FiO2 05/26/17 08:54 Room Air 05/26/17 08:47 70 05/26/17 08:47 118/52 05/26/17 07:20 96.2 20 93 05/26/17 03:58 0.5 I&O- Last 24 Hours up to 6 AM 05/27/17 06:00 Intake Total 240 ml Balance 240 ml Laboratory Data Labs 24H Laboratory Tests 2 05/25/17 21:16: Bedside Glucose (Misc Panel) 143H 05/26/17 04:41: Immature Granulocyte % (Auto) 1.6H, White Blood Count 6.3, Red Blood Count 3.38L , Hemoglobin 9.8L, Hematocrit 32.3L, Mean Corpuscular Volume 95.6, Mean Corpuscular Hemoglobin 29.0, Mean Corpuscular Hemoglobin Concent 30.3L, Red Cell Distribution Width 19.2H, Platelet Count 205, Neutrophils (%) (Auto) 69.4H , Lymphocytes (%) (Auto) 18.0L, Monocytes (%) (Auto) 7.5H, Eosinophils (%) (Auto ) 2.4, Basophils (%) (Auto) 1.1H, Neutrophils # (Auto) 4.4, Lymphocytes # (Auto ) 1.1L, Monocytes # (Auto) 0.5, Eosinophils # (Auto) 0.2, Basophils # (Auto) 0.1 , Immature Granulocyte # (Auto) 0.1H, Nucleated Red Blood Cells % (auto) 0.0, Anion Gap 6L, Glomerular Filtration Rate > 60.0, Blood Urea Nitrogen 15, Creatinine 0.69, Sodium Level 139, Potassium Level 3.7, Chloride Level 103, Carbon Dioxide Level 30, Calcium Level 8.2L, Aspartate Amino Transf (AST/SGOT) 12, Alanine Aminotransferase (ALT/SGPT) 33, Alkaline Phosphatase 117, Total Bilirubin 0.8#, Total Protein 6.1L, Albumin 2.5L, Magnesium Level 2.3, C- Reactive Protein, Quantitative 0.78H, Albumin/Globulin Ratio 0.69L CBC/BMP Laboratory Tests 05/26/17 04:41 Red Blood Count 3.38 L, Mean Corpuscular Volume 95.6, Mean Corpuscular Hemoglobin 29.0, Mean Corpuscular Hemoglobin Concent 30.3 L, Red Cell Distribution Width 19.2 H, Neutrophils (%) (Auto) 69.4 H, Lymphocytes (%) (Auto ) 18.0 L, Monocytes (%) (Auto) 7.5 H, Eosinophils (%) (Auto) 2.4, Basophils (%) (Auto) 1.1 H, Neutrophils # (Auto) 4.4, Lymphocytes # (Auto) 1.1 L, Monocytes # (Auto) 0.5, Eosinophils # (Auto) 0.2, Basophils # (Auto) 0.1, Calcium Level 8.2 L, Aspartate Amino Transf (AST/SGOT) 12, Alanine Aminotransferase (ALT/SGPT) 33 , Alkaline Phosphatase 117, Total Bilirubin 0.8 #, Total Protein 6.1 L, Albumin 2.5 L FSBS Laboratory Tests Test 05/25/17 21:16 Range/Units Bedside Glucose (Misc Panel) 143 83-110 MG/DL Microbiology Microbiology 05/16/17 Blood Culture - Final, Complete NO GROWTH AFTER 5 DAYS 05/16/17 Blood Culture - Final, Complete NO GROWTH AFTER 5 DAYS 05/16/17 Blood Culture - Final, Complete NO GROWTH AFTER 5 DAYS 05/23/17 Gram Stain - Final, Complete 05/23/17 Sputum Culture - Final, Complete Yeast Like Organism Discharge Medications Scheduled (Revlimid) 2.5 Mg Cap, Unknown Dose PO QHS, (Reported) PT UNSURE OF STRENGTH. WILL BRING IN. PLEASE CORRECT THIS ENTRY WHEN SHE DOES Bisoprolol Fumarate (Zebeta) 10 Mg Tab, 10 MG PO BID, (Reported) Bortezomib (Velcade) Unknown Strength Inj, 2.5 MG SC ASDIRECTED, (Reported) TAKES 1XW FOR 3 WEEKS, STOPS FOR A WEEK, AND THEN STARTS AGAIN. FRIDAY 05/11 WAS LAST DOSE. WILL START AGAIN 05/25 Canagliflozin (Invokana) 300 Mg Tab, 300 MG PO DAILY, (Reported) Captopril (Captopril) 12.5 Mg Tab, 12.5 MG PO BID, (Reported) Cholecalciferol (Vitamin D3) 1,000 Unit Tab, 1,000 UNIT PO DAILY, (Reported) Dexamethasone (Dexamethasone) 4 Mg Tab, 20 MG PO 1XWK, (Reported) THURSDAY Digoxin (Digoxin) 250 Mcg Tab, 250 MCG PO DAILY Furosemide (Lasix) 80 Mg Tab, 80 MG PO BID, (Reported) MORNING AND SUPPER Levofloxacin Hemihydrate (Levaquin) 500 Mg Tab, 500 MG PO DAILY@06 Levothyroxine Sodium (Synthroid) 75 Mcg Tab, 75 MCG PO DAILY, (Reported) Multivitamins *[facility] STOCKED* (Thera M Plus *[facility] STOCKED*) 1 Tab Tab, 1 TAB PO DAILY, (Reported) Nystatin (Nystatin Oral Susp) 5 Ml Susp, 5 ML SS QID 4x/day for 7 days Potassium Chloride (Klor-Con M10) 10 Meq Tabcr, 10 MEQ PO BID, (Reported) Prochlorperazine Maleate (Prochlorperazine Maleate) 10 Mg Tab, 10 MG PO QHS, ( Reported) Quetiapine Fumerate (Quetiapine Fumarate) 50 Mg Tab, 50 MG PO QHS, (Reported) Rivaroxaban (Xarelto) 20 Mg Tab, 20 MG PO DAILY, (Reported) Sitagliptin Phosphate (Januvia) 100 Mg Tab, 100 MG PO ACS, (Reported) Scheduled PRN Lorazepam (Ativan) 1 Mg Tab, 1 MG PO QID PRN for ANXIETY/AGITATION, (Reported) Prochlorperazine Maleate (Prochlorperazine Maleate) 10 Mg Tab, 10 MG PO PRN PRN for NAUSEA, (Reported) Allergies Coded Allergies: Latex (Verified Allergy, Intermediate, rash, 08/14/15) Penicillins (Verified Allergy, Intermediate, RASH, 10/27/12) Penicillins Cross Reactors (Verified Allergy, Intermediate, RASH, 10/27/12) Shellfish Allergy (Verified Allergy, Intermediate, SWELLING, 08/14/15) Codeine (Verified Adverse Reaction, Mild, UPSET STOMACH, 10/27/12) Dabigatran (Verified Adverse Reaction, Mild, ITCH, 08/14/15) KIRSTEN CLAYTON MD May 26, 2017 15:36
[2017-05-29] MEDS ORDERED: INSUDET SC (09:37)
== END 2017-05-26 13:37 | disposition home or self-care (01) | DRG 720 ==
LOC: M ED 11:05 → M ED INP 16:11 → M PCU 17:37
PROVIDERS: ADMIT Internal Medicine; ATTEND Internal Medicine
DX: A41.9 Sepsis, unspecified organism (principal); C90.00 Multiple myeloma not having achieved remission; J18.9 Pneumonia, unspecified organism; I48.0 Paroxysmal atrial fibrillation; E11.9 Type 2 diabetes mellitus without complications; D64.9 Anemia, unspecified; Z90.2 Acquired absence of lung [part of]; I10 Essential (primary) hypertension; E78.5 Hyperlipidemia, unspecified; F41.9 Anxiety disorder, unspecified; E03.9 Hypothyroidism, unspecified; D72.819 Decreased white blood cell count, unspecified; Z91.040 Latex allergy status; Z88.0 Allergy status to penicillin; Z88.5 Allergy status to narcotic agent; Z91.013 Allergy to seafood; Z88.8 Allergy status to other drugs, medicaments and biological substances; Z87.891 Personal history of nicotine dependence; Z85.118 Personal history of other malignant neoplasm of bronchus and lung; Z79.899 Other long term (current) drug therapy; Z79.01 Long term (current) use of anticoagulants

== ENCOUNTER 2017-06-05 06:01 | Day surgery (SDC) | payer OTHER ==
[~2017-06-05] VITALS: Ht 154.9 cm; Wt 86.5 kg
[~2017-06-05 06:01] MED LIST changes: +DEXA4TA PO; +DIGO0.25 PO; +INSUDET SC; +INVO300T PO; +LASI80TA PO; +LEVA1TAB2 PO; +NYST50SS SS; +POTA10CA PO; +PROC10TA PO; +REVL2.5C PO; +VELC3.5I SC; +VITA-122 PO; +VITMTA PO; +XARE20TA PO; +ZOFR8TAB PO
[2017-06-05] MEDS ORDERED: CLINDAMYCIN 600 MG in APPROPRIATE DILUENT 1 EA IV ONE (06:15)
[2017-06-05] MEDS ORDERED: LR 1,000 ML IV SCH (06:15)
[2017-06-05] MEDS ORDERED: LIDOCAINE 1% MDV 20ML VIAL SQ PRN (06:15)
[2017-06-05] MEDS ORDERED: fentaNYL 100 MCG/2 ML INJECTION (J3010) As Ordered ONE (07:02)
[2017-06-05] MEDS ORDERED: MIDAZOLAM INJ 2 MG/2 ML VIAL (J2250) As Ordered ONE ×2 (07:02→07:45)
[2017-06-05] MEDS ORDERED: HEPARIN SOD (PORCINE) 5000 UNITS/ML VIAL As Ordered ONE (07:12)
[2017-06-05] MEDS ORDERED: LIDOCAINE 1% SDV INJ 30 ML VIAL As Ordered ONE (07:12)
[2017-06-05] MEDS ORDERED: NORCO, ANEXSIA 5/325MG TABLET (HYDROcodone/ACETAMINOPHEN) As Ordered ONE (09:07)
[2017-06-05] MEDS ORDERED: NORCO, ANEXSIA 5/325MG TABLET (HYDROcodone/ACETAMINOPHEN) PO PRN (09:15)
[2017-06-05 10:00] VITALS: BP 89/44
--- NOTE | 2017-06-05 10:45 | REP ---
Partial chest x-ray: Single view. History: MediPort placement. 0.1 minutes of fluoroscopy time is reported. Findings: A single last image hold fluoroscopic spot radiograph of what appears to be the right subclavicular region is presented documenting Xgwydd-I-Kfbi catheter placement. No laterality marker. Signed by Tom Lemos MD 06/05/2017 01:12 P
--- NOTE | 2017-06-08 10:19 | RO ---
DATE OF PROCEDURE: 06/05/2017 PREOPERATIVE DIAGNOSIS: Multiple myeloma POSTOPERATIVE DIAGNOSIS: Multiple myeloma. PROCEDURE: 1. Right chest tunneled central venous catheter with subcutaneous port. 2. Interpretation and review of fluoroscopy SURGEON: Dr. Escobar ELECTRON BEAM WELDER: None. ANESTHESIA: IV sedation with 10 mL of 1% lidocaine with epi local. COMPLICATIONS: None. ESTIMATED BLOOD LOSS: 5. INDICATIONS FOR PROCEDURE The patient is a 72-year-old female history of multiple myeloma, undergoes multiple IV transfusions and medication infusions and has been having difficulty with IV access. Recommendation from her oncologist is to have a MediPort placed for easier access for these, as well as blood draws. Recommendation was to have a MediPort placed. Risks and benefits of the procedure, not limited but including bleeding, infection, pneumothorax and need for further surgery were discussed in detail with the patient and informed was obtained. The procedure was planned. PROCEDURE: The patient brought back to operating room #6. After sufficient sedation, bilateral chest and neck were sterilely prepped and draped. Next, a time-out was done to confirm proper patient and proper procedure. Following that, the right chest was marked for the location of the port, as well as IV access site. Following that the 10 mL of local was injected into the skin in the area. Next, using a cannulation needle, the subclavian vein was accessed using one single needle poke. Once the non pulsatile blood was encountered, the syringe was removed from a needle and a guidewire was passed through the needle and into the vessel with minimal resistance. Once the guidewire was then placed, fluoroscopy was used to confirm proper positioning into the superior vena cava. Next, a 15 blade scalpel was used to make a 2 cm skin incision inferior to where the needle was located. Using electrocautery, a subcutaneous pocket was created. Once the pocket was created, the catheter was measured to length at 19 cm, was cut to length and connected to the port. The port was placed inside the pocket, and the catheter was tunneled underneath the skin and brought out at the base of the guidewire. Next, a 5 mm incision was made at the base of the guidewire. The dilator and split sheath introducer were then passed over top of the guidewire into the vessel. The catheter was then passed down the split sheath introducer, and the introducer was removed, leaving the catheter in place. Once this was done, the port was accessed and aspirated and flushed to confirm patency. The positioning was then confirmed with fluoroscopy. After doing so, the catheter was sutured in place with #3-0 Vicryl suture. Skin incision was then closed with a two-layer repair with interrupted #3-0 Vicryl sutures followed by running subcuticular #4-0 Vicryl suture. The area was then cleaned and dried. A final flush was performed on the port through the skin to make sure that it was working appropriately. The skin was then cleaned and dried. Steri-Strips, 2 x 2, and a Tegaderm were placed, thus ending procedure.
== END 2017-06-05 10:14 | disposition home or self-care (01) ==
LOC: M SDC 06:01
PROVIDERS: ATTEND Surgery
DX: C90.00 Multiple myeloma not having achieved remission (principal); I11.0 Hypertensive heart disease with heart failure; E78.00 Pure hypercholesterolemia, unspecified; E11.9 Type 2 diabetes mellitus without complications; F41.9 Anxiety disorder, unspecified; E03.9 Hypothyroidism, unspecified; T88.59XD Other complications of anesthesia, subsequent encounter; R94.31 Abnormal electrocardiogram [ECG] [EKG]; I48.91 Unspecified atrial fibrillation; I50.32 Chronic diastolic (congestive) heart failure; K57.32 Diverticulitis of large intestine without perforation or abscess without bleeding; K21.9 Gastro-esophageal reflux disease without esophagitis; Z88.0 Allergy status to penicillin; Z88.1 Allergy status to other antibiotic agents; Z88.5 Allergy status to narcotic agent; Z88.8 Allergy status to other drugs, medicaments and biological substances; Z91.013 Allergy to seafood; Z91.040 Latex allergy status; Z79.899 Other long term (current) drug therapy; Z79.01 Long term (current) use of anticoagulants; Z87.891 Personal history of nicotine dependence; Z92.21 Personal history of antineoplastic chemotherapy; Z78.0 Asymptomatic menopausal state
CPT/HCPCS: 36561; 76000; C1788; J2250; J3010

== ENCOUNTER → 2017-06-15 | Outpatient (REF) | payer OTHER ==
[2017-06-15 19:29] LABS: IMMUNOGLOBULIN G 873 MG/DL (681-1648); IMMUNOGLOBULIN M 28.2 MG/DL (40-230); TOTAL PROTEIN 6.4 GM/DL (6.4-8.2)
[2017-06-17 14:03] LABS: ALBUMIN 3.69 GM/DL (3.29-5.55); ALBUMIN % 57.7 % (55.8-66.1); GAMMA GLOBULIN % 12.5 % (11.1-18.8)
[2017-06-18 00:06] LABS: BETA 2 MICROGLOBULIN 2.8 mg/L (0.6-2.4); FREE KAPPA LIGHT CHAINS SERUM 12.6 mg/L (3.3-19.4); FREE LAMBDA LIGHT CHAINS SERUM 126.7 mg/L (5.7-26.3); KAPPA/LAMBDA RATIO SERUM 0.1 (0.26-1.65)
== END ==
LOC: M LAB REF 17:47
PROVIDERS: ATTEND Internal Medicine Medical Oncology
DX: C34.90 Malignant neoplasm of unspecified part of unspecified bronchus or lung (principal)

== ENCOUNTER → 2017-06-29 | Outpatient (REF) | payer OTHER ==
[2017-06-29 14:35] LABS: MAGNESIUM LEVEL 2.7 MG/DL (1.8-2.4); PHOSPHORUS LEVEL 3.4 MG/DL (2.5-4.9)
== END ==
LOC: M LAB REF 13:59
PROVIDERS: ATTEND Internal Medicine Medical Oncology
DX: C90.00 Multiple myeloma not having achieved remission (principal); C34.90 Malignant neoplasm of unspecified part of unspecified bronchus or lung

== ENCOUNTER → 2017-07-21 | Outpatient (REF) | payer OTHER ==
[2017-07-21 18:44] LABS: IMMUNOGLOBULIN G 917 MG/DL (681-1648); IMMUNOGLOBULIN M 28.4 MG/DL (40-230); TOTAL PROTEIN 6.8 GM/DL (6.4-8.2)
[2017-07-22 11:17] LABS: ALBUMIN 3.84 GM/DL (3.29-5.55); ALBUMIN % 56.4 % (55.8-66.1); GAMMA GLOBULIN % 13.6 % (11.1-18.8)
[2017-07-24 00:06] LABS: BETA 2 MICROGLOBULIN 2.9 mg/L (0.6-2.4); FREE KAPPA LIGHT CHAINS SERUM 19.3 mg/L (3.3-19.4); FREE LAMBDA LIGHT CHAINS SERUM 122.2 mg/L (5.7-26.3); KAPPA/LAMBDA RATIO SERUM 0.16 (0.26-1.65)
== END ==
LOC: M LAB REF 16:44
PROVIDERS: ATTEND Internal Medicine Medical Oncology
DX: C90.00 Multiple myeloma not having achieved remission (principal)

== ENCOUNTER → 2017-07-28 | Outpatient (REF) | payer OTHER ==
[2017-07-28 18:13] LABS: URINE TOTAL PROTEIN 5.7 MG/DL (0-12)
[2017-07-28 18:36] LABS: IMMUNOGLOBULIN G 759 MG/DL (681-1648); IMMUNOGLOBULIN M 29.5 MG/DL (40-230); TOTAL PROTEIN 6.8 GM/DL (6.4-8.2)
[2017-07-30 11:34] LABS: ALBUMIN % 57.4 % (55.8-66.1); ALPHA-1-GLOBULIN % 6.2 % (2.9-4.9); ALPHA-1-GLOBULINS 0.42 GM/DL (0.17-0.41); ALPHA-2-GLOBULINS 0.86 GM/DL (0.42-0.99); ALPHA-2-GLOBULINS % 12.7 % (7.1-11.8); BETA-1-GLOBULINS 0.49 GM/DL (0.28-0.60); BETA-1-GLOBULINS % 7.2 % (4.7-7.2); BETA-2-GLOBULINS 0.32 GM/DL (0.19-0.55); BETA-2-GLOBULINS % 4.7 % (3.2-6.5); GAMMA GLOBULIN % 11.8 % (11.1-18.8)
[2017-07-30 13:24] LABS: UPEP INTERPRETATION NO M-SPIKE NOTED; URINE VOLUME RANDOM ML
[2017-08-01 00:06] LABS: FREE KAPPA LIGHT CHAINS SERUM 15.5 mg/L (3.3-19.4); FREE LAMBDA LIGHT CHAINS SERUM 25.6 mg/L (5.7-26.3); KAPPA/LAMBDA RATIO SERUM 0.61 (0.26-1.65)
== END ==
LOC: M LAB REF 16:42
DX: C90.00 Multiple myeloma not having achieved remission (principal)

== ENCOUNTER → 2017-08-10 | Outpatient (REF) | payer OTHER ==
[2017-08-10 19:48] LABS: IMMUNOGLOBULIN G 712 MG/DL (681-1648); IMMUNOGLOBULIN M 25.9 MG/DL (40-230); TOTAL PROTEIN 6.2 GM/DL (6.4-8.2)
[2017-08-13 00:06] LABS: FREE KAPPA LIGHT CHAINS SERUM 28.2 mg/L (3.3-19.4); FREE LAMBDA LIGHT CHAINS SERUM 52.4 mg/L (5.7-26.3); KAPPA/LAMBDA RATIO SERUM 0.54 (0.26-1.65)
== END ==
LOC: M LAB REF 17:17
DX: C90.00 Multiple myeloma not having achieved remission (principal)

== ENCOUNTER 2017-09-07 03:05 | Emergency (ER) | payer OTHER ==
[2017-09-07 04:43] LABS: ABG BASE EXCESS 3.4 (-2.0-2.0); ABG HCO3 27.2 MEQ/L (22.0-26.0); ABG O2 SATURATION 95.8 % (95.0-99.0); ABG PARTIAL PRESSURE O2 81.5 mmHg (75.0-100.0); ABG STANDARD HCO3 27.5 MEQ/L (22.0-26.0); ABG TOTAL CO2 28.3 MEQ/L (23.0-31.0); ABG pH (ARTERIAL) 7.472 UNITS (7.350-7.450)
[2017-09-07 05:26] LABS: BASO # 0.2 10^3/uL (0.0-0.2); BASO % 1.9 % (0.0-1.0); EOS # 0.1 10^3/uL (0.0-0.50); EOS % 1.5 % (0.0-3.0); HEMATOCRIT 34.4 % (36.0-47.0); HEMOGLOBIN 10.9 g/dl (12.0-16.0); IMMATURE GRANULOCYTE % 0.5 % (0-3.0); LYMPH # 1.3 10^3/uL (1.5-4.5); LYMPH % 14.3 % (24.0-44.0); MEAN CORPUSCULAR HEMOGLOBIN 29.9 pg (27.0-33.0); MEAN CORPUSCULAR HGB CONC 31.7 g/dl (32.0-36.5); MEAN CORPUSCULAR VOLUME 94.2 fl (80.0-96.0); MONO # 1.4 10^3/uL (0.0-0.8); MONO % 16.1 % (0.0-5.0); NEUTROPHILS # 5.8 10^3/uL (1.8-7.7); NEUTROPHILS % 65.7 % (36.0-66.0); PLATELET COUNT, AUTOMATED 392 10^3/uL (150-450); RED BLOOD COUNT 3.65 10^6/uL (4.00-5.40); RED CELL DISTRIBUTION WIDTH 17.4 % (11.5-14.5); WHITE BLOOD COUNT 8.8 10^3/uL (4.0-10.0)
[2017-09-07 05:34] LABS: INFLUENZA A AMPLIFICATION NEGATIVE (NEGATIVE); INFLUENZA B AMPLIFICATION NEGATIVE (NEGATIVE)
[2017-09-07 05:47] LABS: ANION GAP 7 MEQ/L (8-16); BLOOD UREA NITROGEN 14 MG/DL (7-18); CALCIUM LEVEL 8.6 MG/DL (8.8-10.2); CARBON DIOXIDE LEVEL 29 MEQ/L (21-32); CHLORIDE LEVEL 104 MEQ/L (98-107); GLOMERULAR FILTRATION RATE 58.4 (>39); GLUCOSE, FASTING 92 MG/DL (70-100); POTASSIUM SERUM 3.1 MEQ/L (3.5-5.1); SODIUM LEVEL 140 MEQ/L (136-145)
[2017-09-07] MEDS: POTASSIUM CHLORIDE 10 MEQ SR TABLET PO (07:37)
[2017-09-07 10:07] LABS: NT-PRO BNP 1475 PG/ML (<125)
[2017-09-07] MEDS: SODIUM CHLORIDE 0.9% INJ 10 ML SYR IV (11:23)
== END 2017-09-07 11:28 | disposition home or self-care (01) ==
LOC: M ED 03:05
DX: E87.6 Hypokalemia (principal); J44.1 Chronic obstructive pulmonary disease with (acute) exacerbation; E11.9 Type 2 diabetes mellitus without complications; I11.0 Hypertensive heart disease with heart failure; E03.9 Hypothyroidism, unspecified; K21.9 Gastro-esophageal reflux disease without esophagitis; Z79.899 Other long term (current) drug therapy; Z79.4 Long term (current) use of insulin; Z91.013 Allergy to seafood; Z88.0 Allergy status to penicillin; Z88.8 Allergy status to other drugs, medicaments and biological substances; Z87.09 Personal history of other diseases of the respiratory system; Z85.79 Personal history of other malignant neoplasms of lymphoid, hematopoietic and related tissues; Z85.118 Personal history of other malignant neoplasm of bronchus and lung; Z87.891 Personal history of nicotine dependence; Z98.890 Other specified postprocedural states
CPT/HCPCS: 71046

== ENCOUNTER → 2017-09-21 | Outpatient (REF) | payer OTHER ==
[2017-09-21 18:18] LABS: URINE TOTAL PROTEIN 12.5 MG/DL (0-12)
[2017-09-21 18:33] LABS: IMMUNOGLOBULIN G 1100 MG/DL (681-1648); IMMUNOGLOBULIN M 35.4 MG/DL (40-230); TOTAL PROTEIN 7.3 GM/DL (6.4-8.2)
[2017-09-22 13:40] LABS: ALBUMIN % 53.9 % (55.8-66.1)
[2017-09-22 13:41] LABS: ALBUMIN 3.93 GM/DL (3.29-5.55); ALPHA-1-GLOBULIN % 5.8 % (2.9-4.9); ALPHA-1-GLOBULINS 0.42 GM/DL (0.17-0.41); ALPHA-2-GLOBULINS 0.89 GM/DL (0.42-0.99); ALPHA-2-GLOBULINS % 12.2 % (7.1-11.8); BETA-1-GLOBULINS 0.47 GM/DL (0.28-0.60); BETA-1-GLOBULINS % 6.4 % (4.7-7.2); BETA-2-GLOBULINS 0.48 GM/DL (0.19-0.55); BETA-2-GLOBULINS % 6.6 % (3.2-6.5); GAMMA GLOBULIN % 15.1 % (11.1-18.8)
[2017-09-24 00:06] LABS: FREE KAPPA LIGHT CHAINS SERUM 31.9 mg/L (3.3-19.4); FREE LAMBDA LIGHT CHAINS SERUM 38.8 mg/L (5.7-26.3); KAPPA/LAMBDA RATIO SERUM 0.82 (0.26-1.65)
[2017-09-24 13:51] LABS: UPEP INTERPRETATION NO M-SPIKE NOTED; URINE VOLUME RANDOM ML
== END ==
LOC: M LAB REF 16:42
DX: C90.00 Multiple myeloma not having achieved remission (principal)

== ENCOUNTER → 2017-10-19 | Outpatient (REF) | payer OTHER ==
[2017-10-19 20:03] LABS: URINE TOTAL PROTEIN 5.5 MG/DL (0-12)
[2017-10-19 20:17] LABS: IMMUNOGLOBULIN G 718 MG/DL (681-1648); IMMUNOGLOBULIN M 36.5 MG/DL (40-230); TOTAL PROTEIN 6.6 GM/DL (6.4-8.2)
[2017-10-21 11:09] LABS: ALBUMIN % 55.1 % (55.8-66.1); ALPHA-1-GLOBULIN % 6.7 % (2.9-4.9); ALPHA-2-GLOBULINS % 12.8 % (7.1-11.8)
[2017-10-21 11:10] LABS: ALBUMIN 3.64 GM/DL (3.29-5.55); ALPHA-1-GLOBULINS 0.44 GM/DL (0.17-0.41); ALPHA-2-GLOBULINS 0.84 GM/DL (0.42-0.99); BETA-1-GLOBULINS % 7.5 % (4.7-7.2); BETA-2-GLOBULINS 0.42 GM/DL (0.19-0.55); BETA-2-GLOBULINS % 6.4 % (3.2-6.5); GAMMA GLOBULIN % 11.5 % (11.1-18.8); GAMMA GLOBULINS 0.76 GM/DL (0.65-1.58)
[2017-10-22 00:07] LABS: FREE KAPPA LIGHT CHAINS SERUM 22.5 mg/L (3.3-19.4); FREE LAMBDA LIGHT CHAINS SERUM 19.5 mg/L (5.7-26.3); KAPPA/LAMBDA RATIO SERUM 1.15 (0.26-1.65)
[2017-10-22 14:00] LABS: UPEP INTERPRETATION NO M-SPIKE NOTED
== END ==
LOC: M LAB REF 16:59
DX: C90.00 Multiple myeloma not having achieved remission (principal)

== ENCOUNTER → 2017-11-16 | Outpatient (REF) | payer OTHER ==
[2017-11-16 18:45] LABS: IMMUNOGLOBULIN A 80.3 MG/DL (70-400); IMMUNOGLOBULIN G 490 MG/DL (681-1648); IMMUNOGLOBULIN M 26.7 MG/DL (40-230); TOTAL PROTEIN 5.9 GM/DL (6.4-8.2)
[2017-11-16 18:48] LABS: URINE TOTAL PROTEIN 9.7 MG/DL (0-12)
[2017-11-19 08:06] LABS: BETA 2 MICROGLOBULIN 2.3 mg/L (0.6-2.4)
[2017-11-19 08:06] LABS: FREE KAPPA LIGHT CHAINS SERUM 12.1 mg/L (3.3-19.4); FREE LAMBDA LIGHT CHAINS SERUM 14.9 mg/L (5.7-26.3); KAPPA/LAMBDA RATIO SERUM 0.81 (0.26-1.65)
[2017-11-19 11:25] LABS: ALBUMIN 3.44 GM/DL (3.29-5.55); ALBUMIN % 58.3 % (55.8-66.1); ALPHA-1-GLOBULIN % 6.7 % (2.9-4.9); ALPHA-2-GLOBULINS 0.81 GM/DL (0.42-0.99); ALPHA-2-GLOBULINS % 13.8 % (7.1-11.8); BETA-1-GLOBULINS 0.42 GM/DL (0.28-0.60); BETA-1-GLOBULINS % 7.2 % (4.7-7.2); BETA-2-GLOBULINS 0.31 GM/DL (0.19-0.55); BETA-2-GLOBULINS % 5.3 % (3.2-6.5); GAMMA GLOBULIN % 8.7 % (11.1-18.8); GAMMA GLOBULINS 0.51 GM/DL (0.65-1.58)
[2017-11-19 14:38] LABS: UPEP INTERPRETATION NO M-SPIKE NOTED; URINE VOLUME RANDOM ML
== END ==
LOC: M LAB REF 16:38
DX: Z79.899 Other long term (current) drug therapy (principal); E87.6 Hypokalemia; C90.00 Multiple myeloma not having achieved remission; E83.52 Hypercalcemia

== ENCOUNTER → 2017-12-14 | Outpatient (REF) | payer OTHER ==
[2017-12-14 18:44] LABS: URINE TOTAL PROTEIN 5.8 MG/DL (0-12)
[2017-12-14 19:24] LABS: IMMUNOGLOBULIN G 482 MG/DL (681-1648); TOTAL PROTEIN 6.4 GM/DL (6.4-8.2)
[2017-12-14 20:44] LABS: IMMUNOGLOBULIN M 23.6 MG/DL (40-230)
[2017-12-15 13:45] LABS: ALBUMIN % 56.2 % (55.8-66.1); ALPHA-1-GLOBULINS 0.45 GM/DL (0.17-0.41); ALPHA-2-GLOBULINS 0.99 GM/DL (0.42-0.99); ALPHA-2-GLOBULINS % 15.4 % (7.1-11.8); BETA-1-GLOBULINS % 7.2 % (4.7-7.2); BETA-2-GLOBULINS % 6.1 % (3.2-6.5); GAMMA GLOBULIN % 8.1 % (11.1-18.8)
[2017-12-15 13:46] LABS: BETA-1-GLOBULINS 0.46 GM/DL (0.28-0.60); BETA-2-GLOBULINS 0.39 GM/DL (0.19-0.55); GAMMA GLOBULINS 0.52 GM/DL (0.65-1.58)
[2017-12-17 00:10] LABS: FREE KAPPA LIGHT CHAINS SERUM 13.1 mg/L (3.3-19.4); FREE LAMBDA LIGHT CHAINS SERUM 17.2 mg/L (5.7-26.3); KAPPA/LAMBDA RATIO SERUM 0.76 (0.26-1.65)
[2017-12-17 14:40] LABS: UPEP INTERPRETATION NO M-SPIKE NOTED; URINE VOLUME RANDOM ML
== END ==
LOC: M LAB REF 17:00
DX: E83.52 Hypercalcemia (principal); C90.00 Multiple myeloma not having achieved remission; E87.6 Hypokalemia; Z79.899 Other long term (current) drug therapy

== ENCOUNTER 2018-01-08 16:50 | Emergency (ER) | payer OTHER ==
[2018-01-08 18:06] LABS: BASO # 0.1 10^3/uL (0.0-0.2); EOS # 0.5 10^3/uL (0.0-0.50); EOS % 7.4 % (0.0-3.0); HEMOGLOBIN 13.2 g/dl (12.0-15.5); IMMATURE GRANULOCYTE % 0.8 % (0-3.0); LYMPH # 1.7 10^3/uL (1.5-4.5); LYMPH % 23.5 % (24.0-44.0); MEAN CORPUSCULAR HEMOGLOBIN 32.6 pg (27.0-33.0); MEAN CORPUSCULAR HGB CONC 33.8 g/dl (32.0-36.5); MEAN CORPUSCULAR VOLUME 96.3 fl (80.0-96.0); MONO # 0.8 10^3/uL (0.0-0.8); MONO % 11.3 % (0.0-5.0); NEUTROPHILS # 4.1 10^3/uL (1.8-7.7); PLATELET COUNT, AUTOMATED 302 10^3/uL (150-450); RED BLOOD COUNT 4.05 10^6/uL (4.00-5.40); RED CELL DISTRIBUTION WIDTH 17.2 % (11.5-14.5); WHITE BLOOD COUNT 7.3 10^3/uL (4.0-10.0)
[2018-01-08 18:22] LABS: INR 1.14; PARTIAL THROMBOPLASTIN TIME 30.9 SECONDS (26.8-37.9); PROTHROMBIN TIME 14.8 SECONDS (12.4-14.5)
[2018-01-08] MEDS: METOPROLOL 5 MG/5 ML VIAL IV ×2 (18:40→22:29)
[2018-01-08] MEDS: NS 500 ML IV (18:40)
[2018-01-08 18:45] LABS: ANION GAP 10 MEQ/L (8-16); BLOOD UREA NITROGEN 16 MG/DL (7-18); CALCIUM LEVEL 9.1 MG/DL (8.8-10.2); CARBON DIOXIDE LEVEL 30 MEQ/L (21-32); CHLORIDE LEVEL 102 MEQ/L (98-107); CPK CREATINE PHOSPHOKINASE 38 U/L (26-192); CREATININE FOR GFR 1.43 MG/DL (0.55-1.30); GLOMERULAR FILTRATION RATE 38.6 (>39); GLUCOSE, FASTING 105 MG/DL (70-100); MAGNESIUM LEVEL 2.4 MG/DL (1.8-2.4); POTASSIUM SERUM 2.9 MEQ/L (3.5-5.1); SODIUM LEVEL 142 MEQ/L (136-145); TROPONIN I 0.09 NG/ML (< 0.10)
[2018-01-08 18:46] LABS: MB/CK RELATIVE INDEX 5.26 (< OR =4)
[2018-01-08] MEDS: POTASSIUM CHLORIDE 10% LIQ 20 MEQ/15 ML UDC PO (19:30)
[2018-01-08] MEDS: BISOPROLOL FUMARATE 10 MG TAB PO (19:30)
[2018-01-08] MEDS ORDERED: SODIUM CHLORIDE 0.9% INJ 10 ML SYR IV (20:45)
[2018-01-08] MEDS: LORazepam 0.5 MG TAB PO ×2 (20:59→21:15)
[2018-01-08] MEDS: SODIUM CHLORIDE 0.9% INJ 10 ML SYR IV (21:05)
[2018-01-09] MEDS: DIGOXIN INJ 0.5 MG/2 ML AMP (J1160) IV ×2 (00:08→01:10)
[2018-01-09] MEDS: POTASSIUM CHLORIDE 10% LIQ 20 MEQ/15 ML UDC PO (00:15)
[2018-01-09] MEDS: BISOPROLOL FUMARATE 5 MG TAB PO (00:15)
== END 2018-01-09 02:45 | disposition left against medical advice (07) ==
LOC: M ED 01-09 02:45
DX: I48.91 Unspecified atrial fibrillation (principal); I48.92 Unspecified atrial flutter; R00.0 Tachycardia, unspecified; I50.9 Heart failure, unspecified; I25.2 Old myocardial infarction; E11.9 Type 2 diabetes mellitus without complications; I10 Essential (primary) hypertension; E78.5 Hyperlipidemia, unspecified; E03.9 Hypothyroidism, unspecified; Z85.79 Personal history of other malignant neoplasms of lymphoid, hematopoietic and related tissues; Z92.21 Personal history of antineoplastic chemotherapy; Z79.4 Long term (current) use of insulin; Z79.899 Other long term (current) drug therapy; Z88.5 Allergy status to narcotic agent; Z88.8 Allergy status to other drugs, medicaments and biological substances; Z88.0 Allergy status to penicillin; Z91.013 Allergy to seafood; Z91.040 Latex allergy status
CPT/HCPCS: J1160

== ENCOUNTER → 2018-01-11 | Outpatient (REF) | payer OTHER ==
[2018-01-11 18:19] LABS: URINE TOTAL PROTEIN 22.2 MG/DL (0-12)
[2018-01-11 18:27] LABS: IMMUNOGLOBULIN G 461 MG/DL (681-1648); IMMUNOGLOBULIN M 23.7 MG/DL (40-230)
[2018-01-14 00:06] LABS: FREE KAPPA LIGHT CHAINS SERUM 20.5 mg/L (3.3-19.4); FREE LAMBDA LIGHT CHAINS SERUM 22.5 mg/L (5.7-26.3); KAPPA/LAMBDA RATIO SERUM 0.91 (0.26-1.65)
[2018-01-14 12:24] LABS: ALBUMIN 3.45 GM/DL (3.29-5.55); ALBUMIN % 57.5 % (55.8-66.1); ALPHA-1-GLOBULINS 0.42 GM/DL (0.17-0.41); ALPHA-2-GLOBULINS 0.83 GM/DL (0.42-0.99); ALPHA-2-GLOBULINS % 13.9 % (7.1-11.8); BETA-1-GLOBULINS % 7.1 % (4.7-7.2); BETA-2-GLOBULINS % 5.9 % (3.2-6.5); GAMMA GLOBULIN % 8.6 % (11.1-18.8)
[2018-01-14 12:25] LABS: BETA-1-GLOBULINS 0.43 GM/DL (0.28-0.60); BETA-2-GLOBULINS 0.35 GM/DL (0.19-0.55); GAMMA GLOBULINS 0.52 GM/DL (0.65-1.58)
[2018-01-14 14:25] LABS: UPEP INTERPRETATION NO M-SPIKE NOTED; URINE VOLUME RANDOM ML
== END ==
LOC: M LAB REF 17:05
DX: E83.52 Hypercalcemia (principal); C90.00 Multiple myeloma not having achieved remission; E87.6 Hypokalemia; Z79.899 Other long term (current) drug therapy

== ENCOUNTER 2018-01-28 06:40 | Day surgery (SDC) | payer OTHER ==
[2018-01-28] MEDS: POVIDONE-IODINE 5% OPHTH PREP SOL 30ML As Ordered (06:40)
[2018-01-28] MEDS: CEFUROXIME 1MG/0.1ML INTRACAMERAL INJ As Ordered (06:40)
[2018-01-28] MEDS ORDERED: MIDAZOLAM INJ 2 MG/2 ML VIAL (J2250) As Ordered (07:18)
[2018-01-28] MEDS: OFLOXACIN 0.3 % (OCUFLOX) OPTH SOL 5ML OS (07:40)
[2018-01-28] MEDS: PROPARACAINE 0.5% OPHTH SOL 15ML OS (07:40)
[2018-01-28] MEDS: TROPICAMIDE 1% OPHTH SOLN 2ML OS (07:40)
[2018-01-28] MEDS: PHENYLEPHRINE 2.5% OPHTH SOL 2ML OS (08:15)
[2018-01-28] MEDS ORDERED: fentaNYL 100 MCG/2 ML INJECTION (J3010) As Ordered (08:19)
[2018-01-28] MEDS: BALANCED SALT IRRIGATION SOLUTION 500ML BAG (FOR OR EYE MACHINE) As Ordered (08:24)
[2018-01-28] MEDS: LIDOCAINE 0.75%/EPINEPHRINE 0.025% IN BSS 1ML SYR INTRACAMERAL (OR ONLY) As Ordered (08:24)
[2018-01-28] MEDS: DUOVISC (0.50ML VISCOAT/0.55ML PROVISC) OPHTH KIT As Ordered (08:24)
[2018-01-28 08:25] LABS: BEDSIDE GLUCOSE 142 MG/DL (83-110)
== END 2018-01-28 09:30 | disposition home or self-care (01) ==
LOC: M SDC 06:40
DX: H25.12 Age-related nuclear cataract, left eye (principal); E11.40 Type 2 diabetes mellitus with diabetic neuropathy, unspecified; E03.9 Hypothyroidism, unspecified; M12.9 Arthropathy, unspecified; R94.31 Abnormal electrocardiogram [ECG] [EKG]; I48.91 Unspecified atrial fibrillation; I50.9 Heart failure, unspecified; I11.9 Hypertensive heart disease without heart failure; E78.00 Pure hypercholesterolemia, unspecified; K57.32 Diverticulitis of large intestine without perforation or abscess without bleeding; R23.3 Spontaneous ecchymoses; C90.00 Multiple myeloma not having achieved remission; L40.9 Psoriasis, unspecified; F41.9 Anxiety disorder, unspecified; R51 Headache; T88.59XD Other complications of anesthesia, subsequent encounter; Z88.0 Allergy status to penicillin; Z88.5 Allergy status to narcotic agent; Z88.8 Allergy status to other drugs, medicaments and biological substances; Z91.013 Allergy to seafood; Z91.040 Latex allergy status; Z79.899 Other long term (current) drug therapy; Z79.01 Long term (current) use of anticoagulants; Z79.82 Long term (current) use of aspirin; Z92.21 Personal history of antineoplastic chemotherapy; Z87.891 Personal history of nicotine dependence; Z85.118 Personal history of other malignant neoplasm of bronchus and lung; Z86.14 Personal history of Methicillin resistant Staphylococcus aureus infection; Z78.0 Asymptomatic menopausal state
CPT/HCPCS: 66984

== ENCOUNTER → 2018-02-08 | Outpatient (REF) | payer OTHER ==
[2018-02-08 18:31] LABS: IMMUNOGLOBULIN G 419 MG/DL (681-1648); IMMUNOGLOBULIN M 21.6 MG/DL (40-230); TOTAL PROTEIN 6.4 GM/DL (6.4-8.2)
[2018-02-10 12:33] LABS: ALBUMIN 3.64 GM/DL (3.29-5.55); ALBUMIN % 56.8 % (55.8-66.1); ALPHA-1-GLOBULIN % 7.3 % (2.9-4.9); ALPHA-1-GLOBULINS 0.47 GM/DL (0.17-0.41); ALPHA-2-GLOBULINS 0.94 GM/DL (0.42-0.99); ALPHA-2-GLOBULINS % 14.7 % (7.1-11.8); BETA-1-GLOBULINS 0.45 GM/DL (0.28-0.60); BETA-1-GLOBULINS % 7.1 % (4.7-7.2); BETA-2-GLOBULINS % 6.2 % (3.2-6.5); GAMMA GLOBULIN % 7.9 % (11.1-18.8); GAMMA GLOBULINS 0.51 GM/DL (0.65-1.58)
[2018-02-11 00:20] LABS: FREE KAPPA LIGHT CHAINS SERUM 21.3 mg/L (3.3-19.4); FREE LAMBDA LIGHT CHAINS SERUM 24.4 mg/L (5.7-26.3); KAPPA/LAMBDA RATIO SERUM 0.87 (0.26-1.65)
== END ==
LOC: M LAB REF 17:38
DX: E83.52 Hypercalcemia (principal); C90.00 Multiple myeloma not having achieved remission; E87.6 Hypokalemia; Z79.899 Other long term (current) drug therapy; C90.01 Multiple myeloma in remission; Z79.83 Long term (current) use of bisphosphonates

== ENCOUNTER → 2018-02-16 | Outpatient (REF) | payer OTHER | LOC: M LAB REF 10:00 | DX: R19.7 Diarrhea, unspecified (principal); C90.00 Multiple myeloma not having achieved remission ==

== ENCOUNTER → 2018-03-08 | Outpatient (REF) | payer OTHER ==
[2018-03-08 18:19] LABS: IMMUNOGLOBULIN G 368 MG/DL (681-1648); IMMUNOGLOBULIN M 22.7 MG/DL (40-230); TOTAL PROTEIN 6.2 GM/DL (6.4-8.2)
[2018-03-08 18:19] LABS: MAGNESIUM LEVEL 2.4 MG/DL (1.8-2.4)
[2018-03-09 11:30] LABS: URINE TOTAL PROTEIN 24.5 MG/DL (0-12)
[2018-03-09 12:14] LABS: ALBUMIN 3.66 GM/DL (3.29-5.55); ALPHA-1-GLOBULIN % 6.9 % (2.9-4.9); ALPHA-1-GLOBULINS 0.43 GM/DL (0.17-0.41); ALPHA-2-GLOBULINS 0.92 GM/DL (0.42-0.99); ALPHA-2-GLOBULINS % 14.8 % (7.1-11.8); BETA-1-GLOBULINS 0.44 GM/DL (0.28-0.60); BETA-1-GLOBULINS % 7.1 % (4.7-7.2); BETA-2-GLOBULINS 0.35 GM/DL (0.19-0.55); BETA-2-GLOBULINS % 5.6 % (3.2-6.5); GAMMA GLOBULIN % 6.6 % (11.1-18.8); GAMMA GLOBULINS 0.41 GM/DL (0.65-1.58)
[2018-03-10 14:15] LABS: FREE KAPPA LIGHT CHAINS SERUM 17.3 mg/L (3.3-19.4); FREE LAMBDA LIGHT CHAINS SERUM 21.5 mg/L (5.7-26.3)
[2018-03-11 13:55] LABS: UPEP INTERPRETATION NO M-SPIKE NOTED; URINE VOLUME RANDOM ML
== END ==
LOC: M LAB REF 16:42
DX: E83.52 Hypercalcemia (principal); C90.00 Multiple myeloma not having achieved remission; E87.6 Hypokalemia; Z79.899 Other long term (current) drug therapy; C90.01 Multiple myeloma in remission; Z79.83 Long term (current) use of bisphosphonates

== ENCOUNTER → 2018-04-05 | Outpatient (REF) | payer OTHER ==
[2018-04-05 22:32] LABS: URINE TOTAL PROTEIN 16.3 MG/DL (0-12)
[2018-04-06 00:22] LABS: IMMUNOGLOBULIN G 465 MG/DL (681-1648); IMMUNOGLOBULIN M 24 MG/DL (40-230)
[2018-04-06 00:23] LABS: TOTAL PROTEIN 6.4 GM/DL (6.4-8.2)
[2018-04-06 01:29] LABS: MAGNESIUM LEVEL 2.8 MG/DL (1.8-2.4)
[2018-04-07 16:18] LABS: ALBUMIN % 59.4 % (55.8-66.1); ALPHA-1-GLOBULIN % 6.9 % (2.9-4.9); ALPHA-1-GLOBULINS 0.44 GM/DL (0.17-0.41)
[2018-04-07 16:19] LABS: ALPHA-2-GLOBULINS 0.81 GM/DL (0.42-0.99); ALPHA-2-GLOBULINS % 12.7 % (7.1-11.8); BETA-1-GLOBULINS 0.45 GM/DL (0.28-0.60); BETA-2-GLOBULINS 0.38 GM/DL (0.19-0.55); BETA-2-GLOBULINS % 5.9 % (3.2-6.5); GAMMA GLOBULIN % 8.1 % (11.1-18.8); GAMMA GLOBULINS 0.52 GM/DL (0.65-1.58)
[2018-04-08 00:07] LABS: FREE KAPPA LIGHT CHAINS SERUM 22.7 mg/L (3.3-19.4); KAPPA/LAMBDA RATIO SERUM 0.84 (0.26-1.65)
[2018-04-12 14:39] LABS: UPEP INTERPRETATION NO M-SPIKE NOTED; URINE VOLUME RANDOM ML
== END ==
LOC: M LAB REF 17:14
DX: E83.52 Hypercalcemia (principal); C90.00 Multiple myeloma not having achieved remission; E87.6 Hypokalemia; Z79.899 Other long term (current) drug therapy; C90.01 Multiple myeloma in remission; Z79.83 Long term (current) use of bisphosphonates

== ENCOUNTER → 2018-12-01 | Outpatient (REF) | payer OTHER ==
[~2018-12-01] MED LIST changes: -/MOXI40TA OR; -/PANT40TA OR; -/SUCR1TA OR; +ALBU17IN2 INH; +ASPI-255 PO; -ASPI325T24 PO; +AVEL1TAB2 OR; -BISO10TA PO; +BISO10TA13 PO; +CEFD1CAP8 PO; +COLE625TAB PO; +FARX1TAB3 PO; +FLUT1LOT EX; +KLOR10TA76 PO; +KLOR20TA42 PO; -LASI80TA PO; +LASI80TA3 PO; +MEPR750S PO; +NEUR100C PO; -POTA10CA PO; -POTA20TA PO; -PROC10TA PO; +PROC10TA4 PO; +PROT1TAB2 OR; +REVL10CA2 PO; +SIMV20TA2 OR; +SUCR1TAB56 OR; +TRIA1OI TOP; +VELC3.5I SUBQ; -ZOFR8TAB PO; +ZOFR8TAB24 PO; +ZOVI1CAP PO
== END ==
LOC: M LAB REF 12:22
PROVIDERS: ATTEND Internal Medicine
DX: N39.0 Urinary tract infection, site not specified (principal)

== ENCOUNTER 2019-01-01 15:57 | Inpatient (IN) | payer OTHER, MEDICARE ==
[~2019-01-01] VITALS: Ht 152.4 cm; Wt 82.8 kg
[2019-01-01] VITALS (16 sets, daily range): BP systolic 86–142; BP diastolic 42–109
[2019-01-01] MEDS ORDERED: NS 1,000 ML IV ONE ×2 (16:15→16:45)
[2019-01-01] MEDS ORDERED: ACETAMINOPHEN 325 MG TAB PO ONE (16:15)
[2019-01-01 16:29] LABS: HEMATOCRIT 39.1 % (36.0-47.0); HEMOGLOBIN 13.1 g/dl (12.0-15.5); MEAN CORPUSCULAR HEMOGLOBIN 32.6 pg (27.0-33.0); MEAN CORPUSCULAR HGB CONC 33.5 g/dl (32.0-36.5); MEAN CORPUSCULAR VOLUME 97.3 fl (80.0-96.0); PLATELET COUNT, AUTOMATED 139 10^3/uL (150-450); RED BLOOD COUNT 4.02 10^6/uL (4.00-5.40); WHITE BLOOD COUNT 6.5 10^3/uL (4.0-10.0)
[2019-01-01] MEDS ORDERED: LIDOCAINE 2% 5ML JELLY UROJET TOP ONE (16:30)
[2019-01-01 16:54] LABS: APPEARANCE, URINE CLEAR (CLEAR); BACTERIA, URINE AUTO 1+ (NEGATIVE); BILIRUBIN, URINE AUTO NEGATIVE (NEGATIVE); BLOOD, URINE BLOOD 2+ (NEGATIVE); COLOR, URINE YELLOW (YELLOW); GLUCOSE, URINE (UA) AUTO 3+ mg/dL (NEGATIVE); KETONE, URINE AUTO NEGATIVE (NEGATIVE); LEUKOCYTE ESTERASE, URINE AUTO NEGATIVE (NEGATIVE); MUCUS, URINE SMALL (NEGATIVE); NITRITE, URINE AUTO NEGATIVE (NEGATIVE); PROTEIN, URINE AUTO NEGATIVE (NEGATIVE); RBC, URINE AUTO 1 /HPF (0-3); SPECIFIC GRAVITY URINE AUTO 1.012 (1.002-1.035); SQUAMOUS EPITHELIAL CELL UR AU 0 /HPF (0-6); UROBILINOGEN, URINE AUTO 0.2 mg/dL (0.0-2.0); WBC, URINE AUTO 1 /HPF (0-3)
[2019-01-01 16:57] LABS: ALBUMIN 2.8 GM/DL (3.2-5.2); CALCIUM LEVEL 7.9 MG/DL (8.8-10.2); CREATININE FOR GFR 1.91 MG/DL (0.55-1.30); GLOMERULAR FILTRATION RATE 27.6 (>39); POTASSIUM SERUM 4.1 MEQ/L (3.5-5.1); TOTAL PROTEIN 6.3 GM/DL (6.4-8.2)
[2019-01-01] MEDS ORDERED: NOREPINEPHRINE BITARTRATE 8 MG in D5W 500 ML IV SCH (17:00)
--- NOTE | 2019-01-01 17:11 | REP ---
Chest one-view HISTORY: SIRS Comparison: 09/07/2017 There is elevation of the right hemidiaphragm. A diffuse increase in interstitial markings is present in the lungs consistent with chronic interstitial change. The cardiac silhouette is enlarged. The pulmonary vasculature is normal in appearance. Nbalxh-X-Dzax catheter is present. Impression: 1. Chronic interstitial change. 2. Cardiomegaly. Electronically Signed by Gerard Carrion MD 01/01/2019 05:03 P
[2019-01-01] MEDS ORDERED: NS IV ONE (17:15)
[2019-01-01] MEDS ORDERED: DILUENT IV ONE (17:15)
[2019-01-01] MEDS ORDERED: CEFEPIME HCL 2 GM in D5W MINI-BAG PLUS 50 ML IV ONE (17:15)
[2019-01-01 17:18] LABS: ATYPICAL LYMPH 2 % (0-5); BASOPHILS 2 % (0-4); LYMPHOCYTES 4 % (16-52); MONOCYTES 11 % (0-8); NEUTROPHILS 72 % (35-75)
[2019-01-01] MEDS ORDERED: SODIUM CHLORIDE 0.9% 1000ML IV STA (17:19)
[2019-01-01 17:20] LABS: PLATELET ESTIMATE DECREASED (NORMAL); TOXIC GRANULATION 1+; TOXIC VACUOLATION 1+
[2019-01-01 17:27] LABS: INR 1.43; PROTHROMBIN TIME 17.7 SECONDS (12.1-14.4)
--- NOTE | 2019-01-01 17:37 | HPEPDOC ---
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 She was found to be in septic shock with Lactate level 4.5, fever of 103.0, SBP 60/42 (map less than 49), despite IVF in ED. Patient and family state 3-4 days of malaise, fever, chills and leg weakness (legs gave out from weakness). 2 days ago began having urine incontinence, dysuria and urgency; last night had Nausea and Vomiting and fell because of malaise and leg weakness. 2 days of RUQ pain/gas feeling and has taken "lots" of peptobismol. no diarrhea. increased thirst. Today she was too weak to walk and states she fell in bathroom and was weight. Patient states 2 weeks ago treated with levaquin for UTI. Review of chart shows 1 month ago (12/01/18) treated for pansensitive E COli cystitis. Patient states her last dose of Resimed for multiple myeloma was 2 days ago (forget yesterday dose). In the ED, patient had fever of 103.0 and given 1 gram tylenol with improvement. She was started on the IVF sepsis protocol and has received total 2560cc NS fluid. She was straight cath for 300cc urine in the ED which showed 1+bacturia. Blood cultures and urine culture pending. Upon evaluation of patient, she was in trendelenburg and started on levophed for persistent hypotension with improved response and MAP 75 with SBP 113 on levofed 6mcg. She was started on Maxipime in the ED. it is unclear how long prior to coming to ED that she was severely hypotensive: Vital Signs Label Value Date Time Blood Pressure Assessment 97/55 (69) 01/01/19 1810 Blood Pressure Assessment 104/53 (70) 01/01/19 1755 Blood Pressure Assessment 96/53 (67) 01/01/19 1750 Pulse 68 01/01/19 1805 Patient Temperature 100.7 degrees F 01/01/19 1739 Blood Pressure Assessment 69/37 (48) 01/01/19 1730 Blood Pressure Assessment 69/39 (49) 01/01/19 1705 Pulse 68 01/01/19 1705 Bedside Pulse Oximetry 94 % 01/01/19 1705 Bedside Pulse Oximetry 93 % 01/01/19 1600 Blood Pressure Assessment 74/43 01/01/19 1600 Pulse 69 01/01/19 1600 Patient Temperature 103.2 degrees F 01/01/19 1600 Temperature Source Oral 01/01/19 1600 Blood Pressure Assessment 69/41 (50) 01/01/19 1630 Home Medications Scheduled Bisoprolol Fumarate (Bisoprolol Fumarate) 10 Mg Tab, 10 MG PO BID, (Reported) Captopril (Captopril) 12.5 Mg Tab, 12.5 MG PO BID, (Reported) Cholecalciferol (Vitamin D3) (Vitamin D3) 1,000 Unit Tab, 2,000 UNIT PO DAILY, (Reported) Colesevelam HCl (Welchol) 3.75 Gm Powd.pack, 3.75 GM PO DAILY, (Reported) Dapagliflozin Propanediol (Farxiga) 10 Mg Tab, 5 MG PO DAILY, (Reported) Furosemide (Lasix) 80 Mg Tab, 80 MG PO BID, (Reported) MORNING AND SUPPER Insulin Detemir (Levemir) 1 Units/0.01 Ml Susp, 60 UNITS SC QHS, (Reported) Lenalidomide (Revlimid) 10 Mg Capsule, 10 MG PO QHS, (Reported) Levothyroxine Sodium (Synthroid) 75 Mcg Tab, 75 MCG PO DAILY, (Reported) Multivitamins (Thera M Plus Tablet) 1 Tab Tab, 1 TAB PO DAILY, (Reported) Potassium Chloride (Klor-Con M10) 10 Meq Tabcr, 30 MEQ PO BID, (Reported) Rivaroxaban (Xarelto) 20 Mg Tab, 20 MG PO QPM, (Reported) Sitagliptin Phosphate (Januvia) 100 Mg Tab, 100 MG PO ACS, (Reported) Scheduled PRN Lorazepam (Ativan) 1 Mg Tab, 1 MG PO QID PRN for ANXIETY/AGITATION, (Reported) Triamcinolone Acet (Triamcinolone Acetonide 0.1% Oint) 1 Dose/15 Gm Oint, 1 DOSE TOP DAILY PRN for RASH/ITCHING, (Reported) APPLY TO AFFECTED AREA Allergies Coded 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 diastolic CHF (EF 70% on Echo 2014) Heart murmur: Mitral valve , aortic valve vitamin D Deficiency 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 lung cancer [id number] (stage 1 B moderately differentiated adenocarcinoma Multiple myeloma - under active treatment osteoporosis Surgical History S/P ablation 2011 S/P right thorascopic lobectomy 2015 S/P bronchoscopy Right subclavian infusion port 04/2017 T&A Left knee surgery parathyroidectomy 2012 Family History Significant Family History: Heart disease, Hypertension father in MVA mother with afib age 25 (now ) 2 brother with afib Social History * Smoker: former Smoker (quit 1984 ) Alcohol: Denies 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 , 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 A-FIB/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 A-FIB History Current/History of A-Fib/PAF?: Yes Current PO Anticoag Therapy: Yes Age/Risk Factor Scoring CHADSVASC: CHADSVASC Response (Comments) Value Age Risk Factor Age 65-74 years old 1 Gender Risk Factor Female 1 Hx of CHF Yes 1 Hx of HTN Yes 1 Hx of Stroke/TIA/or VTE No 0 Hx of Diabetes Yes 1 Hx of Vascular Disease No 0 Total 5 Treatment Treatment ordered: Rivaroxaban Review of Systems Constitutional: Reports: Chills, Fever, Malaise, Weakness, Fatigue Cardiovascular: Reports: Lt Headedness Gastrointestinal: Reports: Nausea, Vomiting, Abdominal Pain Genitourinary: Reports: Dysuria, Frequency, Incontinence Endocrine: Reports: Polydipsia Musculoskeletal: Reports: Leg Pain, Other Symptoms (headache) Neurological: Reports: Weakness Other systems 10 comprehensive systems reviewed and negative except as above or per HPI Physical Examination General Exam: Positive: Alert, Cooperative, Moderate Distress (due to leg pain/cramps), Other (trendelburg) Eye Exam: Positive: PERRLA, Conjunctiva & lids normal, EOMI ENT Exam: Positive: Atraumatic, Other ENT (dry lips, oral mucosa tachy/dry; upper dentures present) Neck Exam: Positive: Supple, +2 carotid pulse wo bruit Chest Exam: Positive: Clear to auscultation, Normal air movement, Other (right chest wall infusion port (accessed in ED)); Negative: Rales, Rhonchi, Wheezing, Diminished Heart Exam: Positive: Rate Normal, Regular Rhythm (between 64-70 with betablocker on board), Murmurs Telemetry: Positive: No significant arrhythmia, Sinus Abdomen Exam: Positive: Normal bowel sounds, Soft (NT ND ; no tenderness in RUQ, no smith sign, no guarding, no rebound, no rigidity) Extremity Exam: Positive: Normal pulses, Other (no swelling or todd sign bilaterally; ); Negative: Clubbing, Cyanosis, Edema Skin Exam: Positive: Rash (bilateral groin with yeast erythema), Other skin issue (turgor poor with tenting; no mottling , no diaphroesis) Neuro Exam: Positive: Normal Speech, Sensation Intact, Cranial Nerves 3-12 NL Psych Exam: Positive: Mental status NL, Mood NL, Oriented x 3 Vital Signs Vital Signs Date Time Temp Pulse Resp B/P (MAP) Pulse Ox O2 Delivery O2 Flow Rate FiO2 01/01/19 16:50 20 66/33 (44) 01/01/19 16:42 68 95 01/01/19 16:00 103.2 Room Air Laboratory Data Labs 24H Laboratory Tests 2 01/01/19 16:19: White Blood Count 6.5, Red Blood Count 4.02, Hemoglobin 13.1, Hematocrit 39.1, Mean Corpuscular Volume 97.3H, Mean Corpuscular Hemoglobin 32.6, Mean Corpuscular Hemoglobin Concent 33.5, Red Cell Distribution Width 15.9H, Platelet Count 139L, Lymphocytes # (Auto) , Nucleated Red Blood Cells % (auto) 0.0, Neutrophils 72, Band Neutrophils 9, Lymphocytes (Manual) 4L, Monocytes (Manual) 11H, Basophils (Manual) 2, Atypical Lymphocytes 2, Toxic Granulation 1+, Toxic Vacuolation 1+, Platelet Estimate DECREASED, Red Blood Cell Morphology NORMAL, Prothrombin Time 17.7H, Prothromb Time International Ratio 1.43, Urine Appearance CLEAR, Urine Color YELLOW, Urine pH 5.0, Urine Specific [place] 1.012, Urine Protein NEGATIVE, Urine Glucose (UA) 3+H, Urine Ketones NEGATIVE, Urine Urobilinogen 0.2, Urine Bilirubin NEGATIVE, Urine Leukocyte Esterase NEGATIVE, Urine Blood 2+H, Urine Nitrite NEGATIVE, Urine WBC (Auto) 1, Urine RBC (Auto) 1, Urine Hyaline Casts (Auto) 0, Urine Bacteria (Auto) 1+H, Urine Squamous Epithelial Cells 0, Urine Mucus (Auto) SMALL, Urine Sperm (Auto) , Anion Gap 14, Glomerular Filtration Rate 27.6L, Lactic Acid Level 4.5*H, Calcium Level 7.9L, Aspartate Amino Transf (AST/SGOT) 29, Alanine Aminotransferase (ALT/SGPT) 37, Alkaline Phosphatase 101, Total Bilirubin 2.0H, Direct Bilirubin 1.0H, Total Protein 6.3L, Albumin 2.8L, Albumin/Globulin Ratio 0.80L CBC/BMP Laboratory Tests 01/01/19 16:19 Red Blood Count 4.02, Mean Corpuscular Volume 97.3 H, Mean Corpuscular Hemoglobin 32.6, Mean Corpuscular Hemoglobin Concent 33.5, Red Cell Distribution Width 15.9 H, Lymphocytes # (Auto) Microbiology Microbiology 01/01/19 Blood Culture, Received Pending 01/01/19 Blood Culture, Received Pending 01/01/19 Urine Culture, Received Pending Echocardiogram requested echo results from Dr Oconnell office 11/2018 RAD Interpretation STUDY: CXR Rad Actions: Report Reviewed, Films Reviewed, Discussed with the pt, Other Rad Comments: (chronic interstital changes, cardiomegally, no infiltrates, no effusions) Assessment/Plan 1) septic shock manifested by hypotension (unresponsive to fluid), requiring levofed, elevated lactate levels, poor skin tugor, fever 103.2 IVF sepsis protocol, levofed; suspected source is URINE but will start cefepime/vanc until definate source identified 2) UTI - cefepime/vanc, IVF, hdez cath x 48 hours 3) CKD stage III with SJ (baseline creatinine 1.18 and current creatinine is greater than 30% above her baseline) - IVF. monitor vanc levels ; avoid nephrotoxic agents; hold ACEI for now. 4) diastolic CHF (neither acute or chronic) - hold diuretic, beta osmel ,ACEI,and spironolactone until BP improved. monitor for S/S of CHF with IVF given. Request echo report from Dr Oconnell (done 11/2018) 5) multiple myeloma - hold revlimid 6) Diabetes - currently NPO and advance as clinically improves. cover with 2/3 dose of usual levemir and SSI. hold januvia and Farxiga 7) paroxysmal Afib - currently NSR - continue with xarelto. hold coreg because of sepsis induced hypotension. monitor for rebound tachycardia and restart coreg when hemodynamically stable. 8) Hypothyroid - continue home dose synthroid 9) Tinea cruris - topical nystatin CODE Status: full code DVT prophylaxis: not indicated as patient is on xarelto GI Prophylaxis: Pepcid Plan / VTE VTE Prophylaxis Ordered?: No (currently on xarelto) Plan / Urinary Catheter Urinary Catheter: Place Hdez Reason for insertion/continuin: Critical Pt monitoring ADRIANNA MAURER DO Jan 01, 2019 17:37
[2019-01-01] MEDS: NOREPINEPHRINE BITARTRATE 8 MG in D5W 492 ML IV SCH ×2 (17:38→17:55)
[2019-01-01 17:48] LABS: C REACTIVE PROTEIN QUANTITATIV 23.7 MG/DL (0.00-0.30); CK-MB VALUE MASS 1.3 NG/ML (<3.6); MB/CK RELATIVE INDEX 0.17 (< OR =4); TROPONIN I 0.06 NG/ML (< 0.10)
[2019-01-01] MEDS ORDERED: WELC3.75 PO (17:54)
[2019-01-01] MEDS ORDERED: REVL10CA2 PO (17:54)
[2019-01-01] MEDS ORDERED: VANCOMYCIN HCL 1,000 MG, VIAL MATE ADAPTER 1 EACH in D5W 250 ML IV ONE (18:00)
[2019-01-01] MEDS ORDERED: DEXTROSE 50% 50 ML SYRINGE IV PRN (18:30)
[2019-01-01] MEDS ORDERED: GLUCAGON FOR INJ 1 MG VIAL (J1610) SC PRN (18:30)
[2019-01-01] MEDS ORDERED: NS 1,000 ML IV PRN (18:30)
[2019-01-01] MEDS ORDERED: GLUCOSE 4 GM CHEW TABLET PO PRN (18:30)
[2019-01-01] MEDS ORDERED: NYSTATIN 100,000 UNITS/GM TOPICAL PWD 15 GM TOP PRN (18:45)
[2019-01-01] MEDS: NS 1,000 ML IV SCH (18:45)
[2019-01-01] MEDS ORDERED: NYSTATIN OINTMENT 15 GM TOP PRN (18:45)
[2019-01-01] MEDS: HumaLOG INSULIN (NovoLOG) PER UNIT SC SCH (21:00)
[2019-01-01] MEDS: LORazepam 1 MG TAB PO PRN (21:32)
[2019-01-01] MEDS: FAMOTIDINE IV BAG 20 MG in APPROPRIATE DILUENT 1 EA IV SCH (21:32)
[2019-01-01] MEDS: LEVEMIR (INSULIN DETEMIR) 1 UNITS/0.01ML SC SCH (21:33)
[2019-01-01] MEDS: CHLORHEXIDINE GLUCONATE 0.12 % 15ML UDC (PERIDEX ORAL RINSE) MT SCH (21:33)
[2019-01-01] MEDS: ACETAMINOPHEN TAB 650MG DOSE (2X325MG) PO PRN (22:27)
[2019-01-02] VITALS (45 sets, daily range): BP systolic 77–136; BP diastolic 39–80
[2019-01-02] MEDS: ACETAMINOPHEN TAB 650MG DOSE (2X325MG) PO PRN ×4 (02:46→20:08)
[2019-01-02] MEDS: NS 1,000 ML IV SCH ×3 (04:08→21:26)
[2019-01-02] MEDS: LEVOTHYROXINE 75MCG TABLET (0.075MG) PO SCH (06:06)
[2019-01-02] MEDS: LORazepam 1 MG TAB PO PRN ×3 (06:37→21:31)
[2019-01-02] MEDS: HumaLOG INSULIN (NovoLOG) PER UNIT SC SCH ×4 (07:30→20:17)
[2019-01-02] MEDS ORDERED: VANCOMYCIN HCL 750 MG, VIAL MATE ADAPTER 1 EACH in D5W 250 ML IV SCH (08:00)
--- NOTE | 2019-01-02 08:41 | IPNPDOC ---
Text Note Date of Service The patient was seen on 01/02/19. NOTE S: patient states feels fine. does not feel "feverish" despite temp 102. sta sue no N, no V, no abdomen pain. She is being seen for septic shock , UTI, SJ, DM O: Vitals as below General: ill appearing but pleasant, NAD, AAOx3 HRRR with no audible murmur LCTA no W/R/R Abdomen soft NT ND NABS Ext: no edema Labs pending A/P: 1) septic shock - levofed stopped at 0800. continue IVF. still with fever spikes 102 currently. If BP is maintained over next 6 hours, will decreased IVF to avoid CHF. continue with cefepime/vanc until definite source identified 2) UTI - cefepime/vanc, IVF, hdez cath x 48 hours 3) CKD stage III with SJ (baseline creatinine 1.18 and current creatinine is greater than 30% above her baseline) - IVF. monitor vanc levels ; avoid nephrotoxic agents; hold ACEI for now. SJ due to sepsis and hypotension. 4) diastolic CHF (neither acute or chronic) - hold diuretic, beta omsel ,ACEI,and spironolactone until BP improved. monitor for S/S of CHF with IVF given. Request echo report from Dr Oconnell (done 11/2018) 5) multiple myeloma - hold revlimid 6) Diabetes - advance diet; cover with 2/3dose of usual levemir and SSI. hold januvia and Farxiga 7) paroxysmal Afib - currently NSR - continue with xarelto. hold coreg because of sepsis induced hypotension. monitor for rebound tachycardia and restart coreg when hemodynamically stable. 8) Hypothyroid - continue home dose synthroid 9) Tinea cruris - topical nystatin CODE Status: full code DVT prophylaxis: not indicated as patient is on xarelto GI Prophylaxis: Pepcid VS,Fishbone, I+O VS, Fishbone, I+O Laboratory Tests 01/01/19 16:19 Red Blood Count 4.02, Mean Corpuscular Volume 97.3 H, Mean Corpuscular Hemoglobin 32.6, Mean Corpuscular Hemoglobin Concent 33.5, Red Cell Distribution Width 15.9 H, Lymphocytes # (Auto) Vital Signs Date Time Temp Pulse Resp B/P (MAP) Pulse Ox O2 Delivery O2 Flow Rate FiO2 6/9/19 08:00 102.1 77 28 134/75 96 01/01/19 19:22 Room Air I&O- Last 24 Hours up to 6 AM 01/02/19 06:00 Intake Total 5319.2 ml Output Total 1995 ml Balance 3324.2 ml ADRIANNA MAURER DO Jan 02, 2019 08:41
[2019-01-02 08:54] LABS: CREATININE FOR GFR 1.46 MG/DL (0.55-1.30); GLOMERULAR FILTRATION RATE 37.6 (>39); POTASSIUM SERUM 3.4 MEQ/L (3.5-5.1)
[2019-01-02] MEDS: CHLORHEXIDINE GLUCONATE 0.12 % 15ML UDC (PERIDEX ORAL RINSE) MT SCH ×2 (08:56→20:08)
[2019-01-02] MEDS: FAMOTIDINE IV BAG 20 MG in APPROPRIATE DILUENT 1 EA IV SCH ×2 (08:56→20:08)
--- NOTE | 2019-01-02 09:18 | PHACANCOPD ---
PHARMACY VANCOMYCIN DOSING Pt Demographics Demographics Patient Age:73 , Weight:85.600 , Gender: female Adjusted Body Weight Date: 01/02/19, Adjusted Body Weight: [61] Kg Events Past 24 Hours Events Past 24 Hours: YES: Change in CrCl, Fever; NO: Dialysis, Diuretic Therapy, Elevation in WBC, Pending Diagnostics, Pending Procedures, Other Vancomycin Vancomycin indication: SEPSIS Vancomycin Target Ranges: 15-20 mcg/ml Vancomycin Load Y/N: Yes Load Dose Date Time Vancomycin Load Dose: 1000mg Date: 01/01 Time: 18:00 in ER Vancomycin Dose Date: 01/02/19. Current Vancomycin Dose: [750mg IV q12h @08] Intermittent Dosing?: No Labs Labs Item Value Date Time Creatinine 1.91 MG/DL H 01/01/19 1619 White Blood Count 6.5 10^3/uL 01/01/19 1619 C-Reactive Protein, Quantitative 23.70 MG/DL H 01/01/19 1619 Creatinine 1.46 MG/DL H 01/02/19 0821 Vital Signs Label Value Date Time Patient Temperature 100.7 degrees F 01/01/19 1739 Temperature Source Oral 01/01/19 1739 Patient Temperature 102.1 degrees F 01/02/19 0800 Temperature Source Temporal 01/02/19 0800 Micro Microbiology 01/01/19 Blood Culture - Preliminary, Resulted 01/01/19 Blood Culture - Preliminary, Resulted 01/01/19 Urine Culture, Received Pending Creatinine Clearance Date:01/02/19. Creatinine Clearance: [~27 ml/min]. Pending Labs Vanco trough scheduled 01/02 @17:00 Assessment and Plan Maintaining Current Dose?: Yes Reason for dose change: No Dose Change Pharmacist Note Pharmacist Note Date: 01/02/19. Pharmacist note: pt was started on Vancomycin and cefepime yes terday for sepsis. Blood cultures are preliminary positive for g+ cocci cl 2/. Based on prior consults and her decreased renal function, I have started her on a vancomcyin 1g IV load followed by 750mg q12h. I have a trough scheduled this evening before the 3rd dose. We will follow up with the trough this evening. Juan Pablo Inman Pharm.D. Jan 02, 2019 09:18
[2019-01-02] MEDS: POTASSIUM CHLORIDE 10 MEQ SR TABLET PO SCH (10:30)
[2019-01-02] MEDS ORDERED: NOREPINEPHRINE BITARTRATE 8 MG in D5W 492 ML IV SCH (11:00)
[2019-01-02] MEDS: RIVAROXABAN 20 MG TAB (XARELTO) PO SCH (17:25)
[2019-01-02] MEDS ORDERED: ANALGESIC BALM CRM 120 GM TOP PRN (17:45)
[2019-01-02] MEDS ORDERED: CEFEPIME HCL 1 GM in D5W MINI-BAG PLUS 50 ML IV SCH (18:00)
--- NOTE | 2019-01-02 18:43 | PHACANCOPD ---
PHARMACY VANCOMYCIN DOSING Pt Demographics Demographics Patient Age:73 , Weight:85.600 , Gender: female Adjusted Body Weight Date: 01/02/19, Adjusted Body Weight: [61] Kg Vancomycin Vancomycin indication: SEPSIS Vancomycin Target Ranges: 15-20 mcg/ml Vancomycin Load Y/N: Yes Load Dose Date Time Vancomycin Load Dose: 1000mg Date: 01/01 Time: 18:00 in ER Vancomycin Dose Date: 01/02/19. Current Vancomycin Dose: [1g IV q12h @18 ] Date: 01/02/19. Current Vancomycin Dose: [750mg IV q12h @08] Intermittent Dosing?: No Labs Labs Item Value Date Time Vancomycin Level Trough 10.2 UG/ML 01/02/19 1719 Micro Microbiology 01/01/19 Blood Culture - Preliminary, Resulted 01/01/19 Blood Culture - Preliminary, Resulted 01/01/19 Urine Culture - Final, Complete Creatinine Clearance Date:01/02/19. Creatinine Clearance: [~27 ml/min]. Assessment and Plan Maintaining Current Dose?: No Reason for dose change: Trough too low Pharmacist Note Pharmacist Note Date: 01/02/19. Pharmacist note: vancomycin trough was drawn ~3 hours before the third dose and came back at 10.2 mcg/ml. SCr has improved. I have changed her dosing to 1g IV q12h given her blood cultures. We will continue to monitor and repeat a trough after a few doses. Date: 01/02/19. Pharmacist note: pt was started on Vancomycin and cefepime yesterday for sepsis. Blood cultures are preliminary positive for g+ cocci cl 2/2. Based on prior consults and her decreased renal function, I have started her on a vancomcyin 1g IV load followed by 750mg q12h. I have a trough scheduled this evening before the 3rd dose. We will follow up with the trough this evening. Juan Pablo Inman Pharm.D. Jan 02, 2019 18:43
[2019-01-02] MEDS: VANCOMYCIN HCL 1,000 MG, VIAL MATE ADAPTER 1 EACH in D5W 250 ML IV SCH (18:54)
[2019-01-02] MEDS: LEVEMIR (INSULIN DETEMIR) 1 UNITS/0.01ML SC SCH (21:00)
[2019-01-02] MEDS ORDERED: LEVEMIR (INSULIN DETEMIR) 1 UNITS/0.01ML SC ONE (21:30)
[2019-01-03] VITALS (16 sets, daily range): BP systolic 76–135; BP diastolic 37–82
[2019-01-03] MEDS: ACETAMINOPHEN TAB 650MG DOSE (2X325MG) PO PRN ×2 (00:10→05:50)
[2019-01-03] MEDS: LORazepam 1 MG TAB PO PRN ×2 (03:24→21:41)
[2019-01-03] MEDS: NS 1,000 ML IV SCH (03:24)
[2019-01-03 04:27] LABS: HEMATOCRIT 28.6 % (36.0-47.0); MEAN CORPUSCULAR HEMOGLOBIN 32.3 pg (27.0-33.0); MEAN CORPUSCULAR HGB CONC 32.2 g/dl (32.0-36.5); MEAN CORPUSCULAR VOLUME 100.4 fl (80.0-96.0); RED BLOOD COUNT 2.85 10^6/uL (4.00-5.40); WHITE BLOOD COUNT 4.6 10^3/uL (4.0-10.0)
[2019-01-03 04:30] LABS: HEMOGLOBIN 9.2 g/dl (12.0-15.5); PLATELET COUNT, AUTOMATED 85 10^3/uL (150-450)
[2019-01-03 04:46] LABS: BASOPHILS 1 % (0-4); CREATININE FOR GFR 1.11 MG/DL (0.55-1.30); GLOMERULAR FILTRATION RATE 51.6 (>39); LYMPHOCYTES 8 % (16-52); METAMYELOCYTES 1 % (0-0); MONOCYTES 7 % (0-8); NEUTROPHILS 82 % (35-75); POTASSIUM SERUM 3.3 MEQ/L (3.5-5.1)
[2019-01-03 04:47] LABS: ANISOCYTOSIS 1+; PLATELET ESTIMATE NORMAL (NORMAL)
[2019-01-03 04:51] LABS: HYPOCHROMASIA 1+; TOXIC GRANULATION 1+; TOXIC VACUOLATION 1+
[2019-01-03] MEDS: LEVOTHYROXINE 75MCG TABLET (0.075MG) PO SCH (05:48)
[2019-01-03] MEDS: VANCOMYCIN HCL 1,000 MG, VIAL MATE ADAPTER 1 EACH in D5W 250 ML IV SCH ×2 (05:48→17:53)
[2019-01-03] MEDS ORDERED: AMIODARONE HCL 150 MG in APPROPRIATE DILUENT 1 EA IV STA (06:46)
[2019-01-03] MEDS: HumaLOG INSULIN (NovoLOG) PER UNIT SC SCH ×4 (07:30→19:21)
[2019-01-03] MEDS: CHLORHEXIDINE GLUCONATE 0.12 % 15ML UDC (PERIDEX ORAL RINSE) MT SCH ×2 (08:26→19:53)
[2019-01-03] MEDS: FAMOTIDINE IV BAG 20 MG in APPROPRIATE DILUENT 1 EA IV SCH ×2 (08:26→19:53)
[2019-01-03] MEDS: POTASSIUM CHLORIDE 10 MEQ SR TABLET PO SCH (08:27)
--- NOTE | 2019-01-03 08:43 | REP ---
Portable chest x-ray: Single view. History: Sepsis. Comparison study: January 01, 2019. Findings: The patient is rotated to the right for the current exposure. EKG monitoring electrodes are seen. A right subclavian vein Disrvq-D-Eaen catheter is seen in place with a tip in the expected location of the superior vena cava. Oxygen delivery tubing is seen. There is a small zone linear fibrosis versus plate-like atelectasis in the left upper lobe region. Right lung base is less well seen. Right hemidiaphragm is again noted to be somewhat elevated. No new infiltrate is appreciated. Electronically Signed by Tom Lemos MD 01/03/2019 08:35 A
[2019-01-03] MEDS: MIRALAX *UNIT DOSE* 17GM PACKET PO SCH (09:00)
[2019-01-03] MEDS ORDERED: BISACODYL 10 MG SUPP PR PRN (09:15)
[2019-01-03] MEDS ORDERED: BISACODYL 5 MG TAB PO PRN (09:15)
--- NOTE | 2019-01-03 09:29 | IPNPDOC ---
Text Note Date of Service The patient was seen on 01/03/19. NOTE S: Patient states feels malaise, tired and not well. she became tachycardic during night and given 1 dose IV amiodarone (patient with history of amiodarone induced pulmonary toxicity). She has been off bisoprolol because of hypotension for 2 days. She is afebrile x 24 hours and blood cultures are showing staph aureus. She continues to have leg pain/myalgia bilaterlly and stool x 3 days. she denies cough, cp, sob, horner, n or v O: Vitals as below General: appears ill, mild distress due to leg pain, AAOx3 Heart - tachy/regular (no afib). 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 1) septic shock - levofed stopped at 0800 01/02/19. RESOLVED. due to staph aureus bacteremia - unknown source; continue vanc; ID consulted. vanc level pending today for dose adjustment. High decision making for monitoring vanc to avoid renal toxicity 2. Staph aureus bacteremia. consult ID. Repeat BC. consider echo or ANETTE if fever spikes reoccur; continue vanc 3) symptomatic UTI - urine culture is negative. d/c hdez. currently on cefepime/vanc for sepsis 4) CKD stage III with SJ (baseline creatinine 1.18) - RESOLVED. consider restarting MENDEZ-I tomorrow for diabetic renoprotective effects 5) diastolic CHF (neither acute or chronic) - no signs of CHF. D/C IVF; hold diuretic, ACEI,and spironolactone until BP improved off fluid for 24 hours, then consider restarting in AM 01/04/19. Request echo report from Dr Oconnell (done 11/2018) 6) Diabetes - advance diet; cover with 2/3 dose of usual levemir and SSI. hold januvia and Farxiga 7) paroxysmal Afib - currently NSR - continue with xarelto. held betablocker because of sepsis induced hypotension. she is now hemodynamically stable and will restart betablocker 8) Hypothyroid - continue home dose synthroid 9) Tinea cruris - topical nystatin 10)multiple myeloma - hold revlimid; last dose 12/30/18; will use percocet prn for leg/back pain PT ordered for hospital weakness/debility VS,Fishbone, I+O VS, Fishbone, I+O Laboratory Tests 01/03/19 04:08 Red Blood Count 2.85 L, Mean Corpuscular Volume 100.4 H, Mean Corpuscular Hemoglobin 32.3, Mean Corpuscular Hemoglobin Concent 32.2, Red Cell Distribution Width 16.4 H, Calcium Level 7.0 L Vital Signs Date Time Temp Pulse Resp B/P (MAP) Pulse Ox O2 Delivery O2 Flow Rate FiO2 01/03/19 07:00 157 127/64 (91) 93 2.0 01/03/19 04:00 99.1 26 01/01/19 19:22 Room Air I&O- Last 24 Hours up to 6 AM 01/03/19 06:00 Intake Total 5221.2 ml Output Total 3100 ml Balance 2121.2 ml ADRIANNA MAURER DO Jan 03, 2019 09:29
[2019-01-03] MEDS: DOCUSATE SODIUM 100 MG CAP PO SCH ×2 (09:39→19:54)
[2019-01-03] MEDS: PERCOCET 5MG/325MG TAB PO PRN ×3 (09:39→19:54)
[2019-01-03] MEDS: BISOPROLOL FUMARATE 10 MG TAB PO SCH ×2 (10:35→19:52)
[2019-01-03] MEDS ORDERED: DIGOXIN INJ 0.5 MG/2 ML AMP (J1160) IV ONE (15:00)
[2019-01-03] MEDS: RIVAROXABAN 20 MG TAB (XARELTO) PO SCH (17:52)
[2019-01-03] MEDS ORDERED: PANTOPRAZOLE 40MG TAB (PROTONIX) PO SCH (19:30)
[2019-01-03] MEDS: LEVEMIR (INSULIN DETEMIR) 1 UNITS/0.01ML SC SCH (19:52)
[2019-01-03] MEDS ORDERED: DIGOXIN INJ 0.5 MG/2 ML AMP (J1160) IV STA (22:37)
[2019-01-04] VITALS (27 sets, daily range): BP systolic 91–138; BP diastolic 54–100
--- NOTE | 2019-01-04 02:51 | CR ---
DATE OF CONSULTATION: 01/01/2019 Asked to consult by primary team for Staphylococcus aureus bacteremia. HISTORY OF PRESENT ILLNESS: Ms. Urbina is a 73-year-old female with a history of diabetes and multiple myeloma, currently in remission on revlimid daily, who presented to the hospital with severe weakness, leg pain and difficulty getting out of bed. The patient had some fever, chills, leg weakness and malaise for about 4 days prior to admission. A couple days prior to admission she was also having some urinary incontinence and urgency, had nausea, vomiting. The patient fell because of malaise and leg weakness. She also was complaining of some vague nonspecific abdominal pain for which she took Pepto-Bismol for gas. The patient had recently been treated for a urinary tract infection 2 weeks prior to admission for Escherichia coli (E. coli) cystitis on December 01. She was found to be in septic shock in the emergency room with a systolic blood pressure of 60/42 that did not respond to intravenous (IV) fluids. Temperature was 103 and lactic acid was 4.5. The patient was started on Levophed was transferred to the intensive care unit (ICU), started on broad-spectrum antibiotics including Zosyn and vancomycin. The patient since then has been feeling much better after 48 hours of broad-spectrum antibiotics. She states her leg weakness has improved. She still in the intensive care unit (ICU). Denies any nausea, vomiting, diarrhea. Urinary symptoms have resolved. PAST MEDICAL HISTORY: Her past medical history is significant for multiple myeloma currently in remission on revlimid daily, hypertension, obesity, insulin-dependent diabetes, lung cancer status post surgical resection done in [place]. History of tobacco abuse. FAMILY HISTORY: Significant for heart disease, hypertension. Father in a motor vehicle accident, mother with atrial fibrillation (AFib) at the age of 25, two brothers with atrial fibrillation (AFib). SOCIAL HISTORY: She quit smoking 1984. Denies alcohol or drug abuse. 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 REVIEW OF SYSTEMS: The patient had generalized weakness, fever and chills. Nausea and vomiting have resolved at this point. She had some frequency and dysuria. These have resolved as well. She has lower extremity weakness and pain. No cough or shortness of breath. PHYSICAL EXAMINATION: On physical exam temperature is 98.2, pulse 125, respirations 26, blood pressure 117/82, O2 saturation 96% on 2 liters nasal cannula. Her temperature was 103.2 on admission. CARDIAC: Heart normal S1, S2. No murmurs, rubs or gallops appreciated. LUNGS: Clear. No wheezes, rales or rhonchi. ABDOMEN: Morbidly obese, soft, nontender. No visceromegaly. Yrkjek-V-Ssct right upper chest with no redness, purulence or drainage. EXTREMITIES: No clubbing, cyanosis or edema. No calf tenderness. No rashes, +1 dorsalis pedis pulses. MUSCULOSKELETAL: Hips/knees normal range of motion on musculoskeletal exam. NEUROLOGIC EXAM: Alert, oriented x3. Motor strength is normal. The patient does have generalized weakness. LABORATORIES: White count 4.6, hemoglobin 9.2, hematocrit 28.6 which has dropped from 39, platelets 85 down from 139, 82% neutrophils, 8% to 7% monocytes. Sodium 141, potassium 3.3, chloride 114, bicarbonate 20, BUN 16, creatinine 1.1 down from 1.46, glucose 85, lactic acid followup was 2.1, calcium 7, magnesium 2.1. Blood cultures were positive for methicillin-sensitive Staphylococcus aureus (MSSA) on 01/01/2019. They were thirty minutes apart. Urine culture was negative. Repeat blood culture on January 03 is pending. Urinalysis showed only one white cell and one red cell. IMAGING STUDIES: Chest x-ray January 01 and January 03 shows the near fibrosis versus platelet atelectasis in left upper lung region, right hemidiaphragm is elevated and no new infiltrates. IMPRESSION: This is a 73-year-old female with a history of multiple myeloma in remission on chronic revlimid with an Ddbqli-N-Hmuq in the right upper chest. She was admitted with septic shock from Staphylococcus aureus bacteremia. Her urinalysis is benign. Urine culture was negative. Chest x-ray does not show any acute infiltrate. The most likely source of Staphylococcus aureus bacteremia would be the Uxgayf-C-Ddka. The patient was in septic shock and therefore this Uyglsw-D-Vaek needs to be removed. Currently the patient does not need any intravenous (IV) chemotherapy. She is not transfusion dependent and if she will need an Csgycg-I-Nnpp in the future this could be replaced. PLAN: Discontinue Ybhrls-G-Wqzk. Please call Dr. Cristobal to remove the port. Schedule transesophageal echocardiogram. The patient follows up with Dr. Oconnell for cardiology and therefore Dr. Bravo will be consulted for transesophageal echocardiogram (ANETTE). Ideally the ANETTE should be done 3-5 days after bacteremia after hospitalization and admission. So that could be scheduled for Thursday or if possible. Dr. Bravo will be called by our resident. Repeat two sets of blood cultures to document clearance. One had been done on January 03, 2019 and the next one will be done on January 04, 2019. Continue with vancomycin until results of cultures available. The patient has a history of methicillin-resistant Staphylococcus aureus (MRSA) in 2004 after she had a cardiac ablation. MEDICATIONS: - insulin Levemir 20 units subcutaneous at bedtime - Percocet 1 tablet by mouth every 4 hours as needed - Dulcolax 10 mg daily by mouth every 6 hours daily - bisoprolol 10 mg by mouth twice a day - Colace 200 mg by mouth twice a day - polyethylene glycol 1 packet by mouth daily - amiodarone intravenous (IV) - cefepime 1 gram IV every 24 hours which was discontinued - nystatin as needed ALLERGIES: PENICILLIN, CODEINE, DABIGATRAN, LATEX and SHELL FISH. PLAN: Will continue to monitor for metastatic complications of Staphylococcus aureus bacteremia. Continue with IV vancomycin for the time being and if the patient has methicillin-sensitive Staphylococcus aureus (MSSA) then she will be de-escalated to cefazolin as she is allergic to nafcillin.
[2019-01-04] MEDS: PERCOCET 5MG/325MG TAB PO PRN ×3 (03:47→21:05)
[2019-01-04 04:57] LABS: BASO # 0.1 10^3/uL (0.0-0.2); EOS % 0.8 % (0.0-3.0); LYMPH # 0.8 10^3/uL (1.5-4.5); LYMPH % 15.6 % (24.0-44.0); MEAN CORPUSCULAR HEMOGLOBIN 32.6 pg (27.0-33.0); MEAN CORPUSCULAR HGB CONC 32.3 g/dl (32.0-36.5); MONO # 0.7 10^3/uL (0.0-0.8); MONO % 13.3 % (0.0-5.0); NEUTROPHILS # 3.6 10^3/uL (1.8-7.7); NEUTROPHILS % 68.5 % (36.0-66.0); PLATELET COUNT, AUTOMATED 102 10^3/uL (150-450); RED BLOOD COUNT 3.07 10^6/uL (4.00-5.40); WHITE BLOOD COUNT 5.2 10^3/uL (4.0-10.0)
[2019-01-04 05:23] LABS: BLOOD UREA NITROGEN 18 MG/DL (7-18); CALCIUM LEVEL 7.2 MG/DL (8.8-10.2); CARBON DIOXIDE LEVEL 22 MEQ/L (21-32); CHLORIDE LEVEL 111 MEQ/L (98-107); CREATININE FOR GFR 0.95 MG/DL (0.55-1.30); GLOMERULAR FILTRATION RATE > 60.0 (>39); GLUCOSE, FASTING 90 MG/DL (70-100); POTASSIUM SERUM 3.9 MEQ/L (3.5-5.1); SODIUM LEVEL 138 MEQ/L (136-145)
[2019-01-04] MEDS: LEVOTHYROXINE 75MCG TABLET (0.075MG) PO SCH (05:27)
[2019-01-04] MEDS: VANCOMYCIN HCL 1,000 MG, VIAL MATE ADAPTER 1 EACH in D5W 250 ML IV SCH (05:27)
[2019-01-04] MEDS: HumaLOG INSULIN (NovoLOG) PER UNIT SC SCH ×4 (07:30→20:19)
[2019-01-04] MEDS: POTASSIUM CHLORIDE 10 MEQ SR TABLET PO SCH (08:59)
[2019-01-04] MEDS: DOCUSATE SODIUM 100 MG CAP PO SCH ×2 (08:59→20:36)
[2019-01-04] MEDS: MIRALAX *UNIT DOSE* 17GM PACKET PO SCH (09:00)
[2019-01-04] MEDS: FAMOTIDINE IV BAG 20 MG in APPROPRIATE DILUENT 1 EA IV SCH ×2 (09:00→21:23)
[2019-01-04] MEDS: BISOPROLOL FUMARATE 10 MG TAB PO SCH ×2 (09:00→20:36)
[2019-01-04] MEDS: CHLORHEXIDINE GLUCONATE 0.12 % 15ML UDC (PERIDEX ORAL RINSE) MT SCH ×2 (09:00→20:35)
[2019-01-04] MEDS ORDERED: SODIUM CHLORIDE 0.9% INJ 10 ML SYR IV PRN (10:15)
--- NOTE | 2019-01-04 11:01 | CR.PDOC ---
General Date of Consultation: Jan 04, 2019 Referring Provider: Vinny Zapien MD Attending Physician: A Consultation Vascular Surgery Dr Cristobal REASON FOR CONSULTATION: Removal of infusaport. HPI: 73year oldF who presented to the hospital with fever, chills, leg weakness and malaise for about 4 days prior to admission. She was found to be in septic shock in the emergency room started on broad-spectrum antibiotics including Zosyn and vancomycin as per medicine. The pt was seen by ID, Dr Zapien, re Staph aureus bacteremia with request for Escosa-Z-Lxrp to be removed. Vascular Surgery is consulted. Denies any Headache, Chest Pain, Shortness of breath, cough, palpitations, abdominal pain, N/V/D or changes in bowel or bladder habits. 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 Denies alcohol use. 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 FAMHX: Mother: PAF Father: MVA Siblings: Alive, PAF ROS: As noted in HPI, otherwise 11pt ROS of systems reviewed and unremarkable. PE: GEN: 73yoF, appears stated age. No acute distress. Alert and oriented x 3. HEENT: Normocephalic, atraumatic. Moist mucous membranes. CHEST: Regular rate and rhythm, +S1, +S2. Infuse a port Rt chest, no erythema, drainage,warmth noted. LUNGS: Clear to auscultation bilaterally.Breathing appears symmetric and easy. ABD: Round, soft, non-tender, non-distended. EXT: Pulses 2+ bilaterally dorsalis pedis/PT. No lower extremity edema appreciated. SKIN: [place], dry, warm. Capillary refill <2sec. No rashes. NEURO: Alert and oriented x 3. No focal deficits appreciated. A&P: 1. Staph aureus bacteremia with request for Ylboic-K-Ydit to be removed. Mgmt as per primary team/ID. Dr Cristobal planning to remove Infuse a port today. DVT prophylaxis. Pt is on Xarelto. Patient was seen and examined. Patient will undergo removal of her right subclavian vein tunneled central venous catheter was subcutaneous port. Vital Signs/I&O Vital Signs Date Time Temp Pulse Resp B/P (MAP) Pulse Ox O2 Delivery O2 Flow Rate FiO2 01/04/19 09:31 22 2.0 01/04/19 09:00 129 118/65 01/04/19 06:00 96 01/04/19 04:00 97.9 01/01/19 19:22 Room Air I&O- Last 24 Hours up to 6 AM 01/04/19 06:00 Intake Total 2385 ml Output Total 2975 ml Balance -590 ml Laboratory Data Labs 24H Laboratory Tests 2 01/03/19 12:14: Bedside Glucose (Misc Panel) 121H 01/03/19 16:51: Vancomycin Level Trough 17.4 01/03/19 17:10: Bedside Glucose (Misc Panel) 107 01/03/19 19:17: Bedside Glucose (Misc Panel) 155H 01/04/19 04:33: Immature Granulocyte % (Auto) 0.8, White Blood Count 5.2, Red Blood Count 3.07L, Hemoglobin 10.0L, Hematocrit 31.0L, Mean Corpuscular Volume 101.0H, Mean Corpuscular Hemoglobin 32.6, Mean Corpuscular Hemoglobin Concent 32.3, Red Cell Distribution Width 16.3H, Platelet Count 102L, Neutrophils (%) (Auto) 68.5H, Lymphocytes (%) (Auto) 15.6L, Monocytes (%) (Auto) 13.3H, Eosinophils (%) (Auto) 0.8, Basophils (%) (Auto) 1.0, Neutrophils # (Auto) 3.6, Lymphocytes # (Auto) 0.8L, Monocytes # (Auto) 0.7, Eosinophils # (Auto) 0.0, Basophils # (Auto) 0.1, Nucleated Red Blood Cells % (auto) 0.0, Anion Gap 5L, Glomerular Filtration Rate > 60.0, Blood Urea Nitrogen 18, Creatinine 0.95, Sodium Level 138, Potassium Level 3.9, Chloride Level 111H, Carbon Dioxide Level 22, Calcium Level 7.2L 01/04/19 07:46: Bedside Glucose (Misc Panel) 93 01/04/19 10:42: Bedside Glucose (Misc Panel) 99 CBC/BMP Laboratory Tests 01/04/19 04:33 Red Blood Count 3.07 L, Mean Corpuscular Volume 101.0 H, Mean Corpuscular Hemoglobin 32.6, Mean Corpuscular Hemoglobin Concent 32.3, Red Cell Distribution Width 16.3 H, Neutrophils (%) (Auto) 68.5 H, Lymphocytes (%) (Auto) 15.6 L, Monocytes (%) (Auto) 13.3 H, Eosinophils (%) (Auto) 0.8, Basophils (%) (Auto) 1.0, Neutrophils # (Auto) 3.6, Lymphocytes # (Auto) 0.8 L, Monocytes # (Auto) 0.7, Eosinophils # (Auto) 0.0, Basophils # (Auto) 0.1, Calcium Level 7.2 L Microbiology Microbiology 01/04/19 Blood Culture, Received Pending 01/03/19 Blood Culture - Preliminary, Resulted No growth after 24 hours . All specim... 01/01/19 Blood Culture - Final, Complete Staphylococcus Aureus 01/01/19 Blood Culture - Final, Complete Staphylococcus Aureus 01/01/19 Urine Culture - Final, Complete Allergies Coded Allergies: shellfish derived (Verified Allergy, Severe, swelling, 10/26/18) Penicillins (Verified Allergy, Intermediate, rash, 10/26/18) latex (Verified Allergy, Intermediate, rash, 10/26/18) codeine (Verified Adverse Reaction, Mild, upset stomach, 10/26/18) dabigatran etexilate (Verified Adverse Reaction, Mild, itching, 10/26/18) Home Medications Scheduled Bisoprolol Fumarate (Bisoprolol Fumarate) 10 Mg Tab, 10 MG PO BID, (Reported) Captopril (Captopril) 12.5 Mg Tab, 12.5 MG PO BID, (Reported) Cholecalciferol (Vitamin D3) (Vitamin D3) 1,000 Unit Tab, 2,000 UNIT PO DAILY, (Reported) Colesevelam HCl (Welchol) 3.75 Gm Powd.pack, 3.75 GM PO DAILY, (Reported) Dapagliflozin Propanediol (Farxiga) 10 Mg Tab, 5 MG PO DAILY, (Reported) Furosemide (Lasix) 80 Mg Tab, 80 MG PO BID, (Reported) MORNING AND SUPPER Insulin Detemir (Levemir) 1 Units/0.01 Ml Susp, 60 UNITS SC QHS, (Reported) Lenalidomide (Revlimid) 10 Mg Capsule, 10 MG PO QHS, (Reported) Levothyroxine Sodium (Synthroid) 75 Mcg Tab, 75 MCG PO DAILY, (Reported) Multivitamins (Thera M Plus Tablet) 1 Tab Tab, 1 TAB PO DAILY, (Reported) Potassium Chloride (Klor-Con M10) 10 Meq Tabcr, 30 MEQ PO BID, (Reported) Rivaroxaban (Xarelto) 20 Mg Tab, 20 MG PO QPM, (Reported) Sitagliptin Phosphate (Januvia) 100 Mg Tab, 100 MG PO ACS, (Reported) Scheduled PRN Lorazepam (Ativan) 1 Mg Tab, 1 MG PO QID PRN for ANXIETY/AGITATION, (Reported) Triamcinolone Acet (Triamcinolone Acetonide 0.1% Oint) 1 Dose/15 Gm Oint, 1 DOSE TOP DAILY PRN for RASH/ITCHING, (Reported) APPLY TO AFFECTED AREA Codie Yadav Jan 04, 2019 11:01 Fritz Cristobal MD Jan 05, 2019 11:32
[2019-01-04] MEDS: LORazepam 1 MG TAB PO PRN (12:03)
--- NOTE | 2019-01-04 12:19 | IPNPDOC ---
Subjective Date Seen The patient was seen on 01/04/19. Subjective Chief Complaint/HPI Patient feels better. Offers no new complaints, awaiting ANETTE General: Denies: ROS Unobtainable, Chills, Night Sweats, Fatigue, Malaise, Normal Appetite, Other Symptoms Constitutional: Denies: Chills, Fever, Malaise, Night Sweats, Weakness, Fatigue, Weight Loss, Lethargy, Other Eyes: Denies: Pain, Vision change, Conjunctivae inflammation, Eyelid inflammation, Redness, Other ENT: Denies: Head Aches, Ear Pain, Dysphagia, Sinus Congestion, Post Nasal Drip, Sore Throat, Epistaxis, Other Symptoms Skin: Denies: Rash, Lesions, Jaundice, Bruising, Itching, Dry, Breakdown, Nail Changes, Other Pulmonary: Denies: Dyspnea, Cough, Pleuritic Chest Pain, Other Symptoms Cardiovascular: Denies: Chest Pain, Palpitations, Orthopnea, Paroxysmal Noc. Dyspnea, Edema, Lt Headedness, Other Symptoms Gastrointestinal: Denies: Nausea, Vomiting, Abdominal Pain, Diarrhea, Constipation, Melena, Hematochezia, Other Symptoms Musculoskeletal: Denies: Neck Pain, Back Pain, Shoulder Pain, Arm Pain, Hand Pain, Leg Pain, Foot Pain, Joint Pain, Muscle Pain, Spasms, Other Symptoms Neurological: Denies: Weakness, Numbness, Change in speech, Confusion Psych: Denies: Mood Normal, Anxiety, Depression, Memory Issues, Thoughts of Self Harm, Anger, Thoughts of Harming Other, Other Psych Objective Physical Examination General Exam: Positive: Alert, Cooperative, Moderate Distress (due to leg pain/cramps), Other ([place]) Eye Exam: Positive: PERRLA, Conjunctiva & lids normal, EOMI ENT Exam: Positive: Atraumatic, Other ENT (dry lips, oral mucosa tachy/dry; upper dentures present) Neck Exam: Positive: Supple, +2 carotid pulse wo bruit Chest Exam: Positive: Clear to auscultation, Normal air movement, Other (right chest wall infusion port (accessed in ED)); Negative: Rales, Rhonchi, Wheezing, Diminished Heart Exam: Positive: Rate Normal, Regular Rhythm (between 64-70 with betablocker on board), Murmurs Telemetry: Positive: No significant arrhythmia, Sinus Abdomen Exam: Positive: Normal bowel sounds, Soft (NT ND ; no tenderness in RUQ, no smith sign, no guarding, no rebound, no rigidity) Extremity Exam: Positive: Normal pulses, Other (no swelling or todd sign bilaterally; ); Negative: Clubbing, Cyanosis, Edema Skin Exam: Positive: Rash (bilateral groin with yeast erythema), Other skin issue (turgor poor with tenting; no mottling , no diaphroesis) Neuro Exam: Positive: Normal Speech, Sensation Intact, Cranial Nerves 3-12 NL Psych Exam: Positive: Mental status NL, Mood NL, Oriented x 3 Assessment /Plan Problems (1) Sepsis Status: Acute (2) Multiple myeloma Status: Acute Plan/VTE VTE Prophylaxis Ordered?: No (currently on xarelto) Plan/Urinary Catheter Urinary Catheter: Place Hdez Reason for insertion/continuin: Critical Pt monitoring 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 1) septic shock - levofed stopped at 0800 01/02/19. RESOLVED. due to staph aureus bacteremia - unknown source; continue vanc; ID consulted. vanc level pending today for dose adjustment. High decision making for monitoring vanc to avoid renal toxicity ANETTE is a scheduled today. Also discussed with Dr. Cristobal and we'll get the Rygzyy-e-Iwrt taken out today and sent for cultures ID consult appreciated 2. Staph aureus bacteremia. consult ID. Repeat BC. consider echo or ANETTE if fever spikes reoccur; continue vanc 3) symptomatic UTI - urine culture is negative. d/c hdez. currently on cefepime/vanc for sepsis 4) CKD stage III with SJ (baseline creatinine 1.18) - RESOLVED. consider restarting MENDEZ-I tomorrow for diabetic renoprotective effects 5) diastolic CHF (neither acute or chronic) - no signs of CHF. D/C IVF; hold diuretic, ACEI,and spironolactone until BP improved off fluid for 24 hours, then consider restarting in AM 01/04/19. Request echo report from Dr Oconnell (done 11/2018) 6) Diabetes - advance diet; cover with 2/3 dose of usual levemir and SSI. hold januvia and Farxiga 7) paroxysmal Afib - currently NSR - continue with xarelto. held betablocker because of sepsis induced hypotension. she is now hemodynamically stable and will restart betablocker 8) Hypothyroid - continue home dose synthroid 9) Tinea cruris - topical nystatin 10)multiple myeloma - hold revlimid; last dose 12/30/18; will use percocet prn for leg/back pain VS, I&O, 24H, Fishbone Vital Signs/I&O Vital Signs Date Time Temp Pulse Resp B/P (MAP) Pulse Ox O2 Delivery O2 Flow Rate FiO2 01/04/19 09:31 22 2.0 01/04/19 09:00 129 118/65 01/04/19 06:00 96 01/04/19 04:00 97.9 01/01/19 19:22 Room Air I&O- Last 24 Hours up to 6 AM 01/04/19 06:00 Intake Total 2385 ml Output Total 2975 ml Balance -590 ml Laboratory Data 24H LABS Laboratory Tests 2 01/03/19 16:51: Vancomycin Level Trough 17.4 01/03/19 17:10: Bedside Glucose (Misc Panel) 107 01/03/19 19:17: Bedside Glucose (Misc Panel) 155H 01/04/19 04:33: Immature Granulocyte % (Auto) 0.8, White Blood Count 5.2, Red Blood Count 3.07L, Hemoglobin 10.0L, Hematocrit 31.0L, Mean Corpuscular Volume 101.0H, Mean Corpuscular Hemoglobin 32.6, Mean Corpuscular Hemoglobin Concent 32.3, Red Cell Distribution Width 16.3H, Platelet Count 102L, Neutrophils (%) (Auto) 68.5H, Lymphocytes (%) (Auto) 15.6L, Monocytes (%) (Auto) 13.3H, Eosinophils (%) (Auto) 0.8, Basophils (%) (Auto) 1.0, Neutrophils # (Auto) 3.6, Lymphocytes # (Auto) 0.8L, Monocytes # (Auto) 0.7, Eosinophils # (Auto) 0.0, Basophils # (Auto) 0.1, Nucleated Red Blood Cells % (auto) 0.0, Anion Gap 5L, Glomerular Filtration Rate > 60.0, Blood Urea Nitrogen 18, Creatinine 0.95, Sodium Level 138, Potassium Level 3.9, Chloride Level 111H, Carbon Dioxide Level 22, Calcium Level 7.2L 01/04/19 07:46: Bedside Glucose (Misc Panel) 93 01/04/19 10:42: Bedside Glucose (Misc Panel) 99 CBC/BMP Laboratory Tests 01/04/19 04:33 Red Blood Count 3.07 L, Mean Corpuscular Volume 101.0 H, Mean Corpuscular Hemoglobin 32.6, Mean Corpuscular Hemoglobin Concent 32.3, Red Cell Distribution Width 16.3 H, Neutrophils (%) (Auto) 68.5 H, Lymphocytes (%) (Auto) 15.6 L, Monocytes (%) (Auto) 13.3 H, Eosinophils (%) (Auto) 0.8, Basophils (%) (Auto) 1.0, Neutrophils # (Auto) 3.6, Lymphocytes # (Auto) 0.8 L, Monocytes # (Auto) 0.7, Eosinophils # (Auto) 0.0, Basophils # (Auto) 0.1, Calcium Level 7.2 L Microbiology Microbiology 01/04/19 Blood Culture, Received Pending 01/03/19 Blood Culture - Preliminary, Resulted No growth after 24 hours . All specim... 01/01/19 Blood Culture - Final, Complete Staphylococcus Aureus 01/01/19 Blood Culture - Final, Complete Staphylococcus Aureus 01/01/19 Urine Culture - Final, Complete GIDEON VEGA MD Jan 04, 2019 12:18
[2019-01-04] MEDS ORDERED: BUPIVACAINE HCL 0.5% 10 ML VIAL As Ordered ONE (13:35)
[2019-01-04] MEDS ORDERED: LIDOCAINE 2% MDV 20 ML VIAL As Ordered ONE (13:35)
[2019-01-04] MEDS ORDERED: ONDANSETRON 4MG/2ML VIAL (J2405) IV PRN (14:30)
[2019-01-04] MEDS ORDERED: fentaNYL 100 MCG/2 ML INJECTION (J3010) As Ordered ONE (14:32)
[2019-01-04] MEDS ORDERED: MIDAZOLAM INJ 2 MG/2 ML VIAL (J2250) As Ordered ONE (14:33)
[2019-01-04] MEDS ORDERED: CETACAINE SPRAY 5GM TOP ONE (14:45)
[2019-01-04] MEDS ORDERED: ONDANSETRON 4MG/2ML VIAL (J2405) IV SCH (15:00)
[2019-01-04] MEDS ORDERED: MIDAZOLAM INJ 2 MG/2 ML VIAL (J2250) IV STA (15:24)
[2019-01-04] MEDS ORDERED: MIDAZOLAM INJ 2 MG/2 ML VIAL (J2250) IV ONE (15:30)
--- NOTE | 2019-01-04 16:09 | T-ECHO ---
DATE OF PROCEDURE: 01/04/2019 REFERRING PHYSICIAN: Dr. Vinny Zapien INDICATION: Staphylococcus bacteremia. PREPROCEDURE DIAGNOSIS: Staphylococcus bacteremia. POSTPROCEDURE DIAGNOSIS: Staphylococcus bacteremia, no vegetations. Additional conclusions below. PROCEDURE PERFORMED BY: Dr. Jhon Bravo DESCRIPTION OF PROCEDURE: Patient received topical Cetacaine spray to the back of the pharynx. She received a total of 4 mg of midazolam IV for IV sedation. Esophageal intubation was accomplished without difficulty by Dr. Bravo using a Paul three-dimensional transesophageal echocardiogram probe. The left and right ventricles appeared normal in size and systolic function and were without regional wall motion abnormalities. Atrial septum was intact anatomically and by color flow Doppler. Pulmonary venous connections to the left atrium were normal. No masses or thrombi were seen within the atria or their appendages. Aortic valve was 3-cusp and displayed very mild aortic valve thickening (sclerosis). Trace aortic regurgitation was present centrally. Mild mitral annular calcification. No mitral valve prolapse. No broken chordae or flail segments. Mild-moderate mitral regurgitation was present. Tricuspid and pulmonic valves were normal. Mild tricuspid regurgitation was present. No pericardial effusion. Distal aortic arch and descending thoracic aorta appeared normal. CONCLUSIONS: 1. No vegetations. 2. Very mild aortic valve sclerosis with trace aortic regurgitation. 3. Mild mitral annular calcification. Mild-moderate mitral regurgitation. 4. Normal left and right ventricle systolic function. Left ventricular ejection fraction (LVEF) 60% by visual estimate.
[2019-01-04] MEDS: RIVAROXABAN 20 MG TAB (XARELTO) PO SCH (18:20)
[2019-01-04] MEDS ORDERED: NS 250 ML IV ONE (18:30)
--- NOTE | 2019-01-04 18:36 | IPN ---
DATE: 01/04/2019 INFECTIOUS DISEASE PROGRESS NOTE SUBJECTIVE: Patient examined at bedside in the intensive care unit (ICU) with in the room. She reports feeling better today and significantly improved from admission, however, complains of fatigue overall. Denies any fevers or chills overnight. Underwent her transesophageal echocardiogram (ANETTE) today to assess for any cardiac vegetations, which the patient reports was negative. Her Lhtfks-b-Jago has been removed as well as her Lopez. She is overall doing much better and is in the process of being downgraded out of the ICU. PHYSICAL EXAMINATION: VITAL SIGNS: Temperature 97.9, pulse 121, respirations 26, blood pressure (BP) 118/78, mean arterial pressure (MAP) of 89, pulse oximetry 95% on 2 liters nasal cannula. GENERAL: Resting comfortable in bed in no acute distress. Alert and oriented times three. Fully conversant. HEENT: Normocephalic, atraumatic. Moist mucous membranes. CARDIAC: Tachycardic, irregular rhythm. Normal S1 and S2. No appreciable murmurs. LUNGS: Clear bilaterally besides minimal rhonchi on the left lower base that clear with coughing. Right upper chest wall has dressings from where the Lbtlue-n-Hcnw was removed earlier today. ABDOMEN: Morbidly obese, soft, nontender, nondistended. Normoactive bowel sounds. EXTREMITIES: No cyanosis, edema, or calf tenderness. Peripheral pulses intact. SKIN: No visible lesions, ulcerations, or rashes. INPATIENT MEDICATIONS: IV famotidine, Synthroid, potassium chloride, Xarelto, Colace, MiraLax, Zebeta, Dulcolax, Percocet, Levemir, vancomycin. LABORATORY DATA: WBC 5.2, hemoglobin and hematocrit 10 and 31, platelets 102 with neutrophil predominance. Sodium and potassium 138 and 3.9, BUN and creatinine 18 and 0.95. Blood cultures from 01/03/19 negative at 24 hours. Blood culture from 01/04/2019 pending. Sputum culture from 01/04/2019: Gram statin is negative. Culture pending. No new imaging. IMPRESSION AND PLAN: Uncomplicated methicillin-sensitive Staphylococcus aureus (MSSA) bacteremia. Patient underwent transesophageal echocardiogram (ANETTE) earlier today without any vegetations per the report. She is afebrile and clinically improving. No fevers or chills. White count is normal. Plan for a total of 14 days of cefazolin since her last negative blood culture, which was 01/03/2019, hence her end date would be January 17 for the antibiotic. There is concern that she is a poor stick. Currently she has a peripheral intravenous (IV). Will continue obtaining labs peripherally and consider midline versus peripherally inserted central catheter (PICC) upon reassessment in the next 1-2 days. Will hold off for now to reduce the risk of infection. Her Staphylococcus aureus bacteremia was likely secondary to her infected Cyrhxn-k-Jzin, which has since been removed since it was not in use for her multiple myeloma. Her Lopez has also been removed today. Repeat blood culture on January 03 is negative, and another repeat blood culture from today is pending. We will require two sets of negative blood cultures to document clearance. Vancomycin has been discontinued given the aforementioned findings. My faculty preceptor for this patient encounter was physically present during the encounter and was fully available. All aspects of the patient interview, examination, medical decision making process, and medical care plan development were reviewed and approved by the faculty preceptor. The faculty preceptor is aware and concurs with the plan as stated in the body of this note and will attest to such by his/her co-signature. AUDRA
[2019-01-04] MEDS: LEVEMIR (INSULIN DETEMIR) 1 UNITS/0.01ML SC SCH (20:37)
[2019-01-05] VITALS (7 sets, daily range): BP systolic 108–133; BP diastolic 66–88
[2019-01-05] MEDS: ACETAMINOPHEN TAB 650MG DOSE (2X325MG) PO PRN (04:31)
[2019-01-05] MEDS: LORazepam 1 MG TAB PO PRN ×2 (04:51→15:55)
[2019-01-05 04:54] LABS: BASO # 0.1 10^3/uL (0.0-0.2); BASO % 1.1 % (0.0-1.0); EOS % 0.5 % (0.0-3.0); HEMATOCRIT 33.5 % (36.0-47.0); HEMOGLOBIN 10.4 g/dl (12.0-15.5); LYMPH # 1.3 10^3/uL (1.5-4.5); LYMPH % 23.4 % (24.0-44.0); MEAN CORPUSCULAR HEMOGLOBIN 31.6 pg (27.0-33.0); MEAN CORPUSCULAR VOLUME 101.8 fl (80.0-96.0); MONO # 0.9 10^3/uL (0.0-0.8); NEUTROPHILS # 3.1 10^3/uL (1.8-7.7); NEUTROPHILS % 57.5 % (36.0-66.0); PLATELET COUNT, AUTOMATED 157 10^3/uL (150-450); RED BLOOD COUNT 3.29 10^6/uL (4.00-5.40); WHITE BLOOD COUNT 5.5 10^3/uL (4.0-10.0)
[2019-01-05 05:17] LABS: CALCIUM LEVEL 7.9 MG/DL (8.8-10.2); CREATININE FOR GFR 0.98 MG/DL (0.55-1.30); GLOMERULAR FILTRATION RATE 59.6 (>39); POTASSIUM SERUM 3.5 MEQ/L (3.5-5.1)
[2019-01-05] MEDS: LEVOTHYROXINE 75MCG TABLET (0.075MG) PO SCH (05:31)
[2019-01-05] MEDS: HumaLOG INSULIN (NovoLOG) PER UNIT SC SCH ×4 (07:30→21:00)
[2019-01-05] MEDS: MIRALAX *UNIT DOSE* 17GM PACKET PO SCH (09:00)
[2019-01-05] MEDS: BISOPROLOL FUMARATE 10 MG TAB PO SCH ×2 (10:10→21:00)
[2019-01-05] MEDS: POTASSIUM CHLORIDE 10 MEQ SR TABLET PO SCH (10:13)
[2019-01-05] MEDS: DOCUSATE SODIUM 100 MG CAP PO SCH ×2 (10:15→20:33)
[2019-01-05] MEDS: PANTOPRAZOLE 40MG TAB (PROTONIX) PO SCH (10:49)
--- NOTE | 2019-01-05 11:29 | ROOPDOC ---
[facility] Report Of Operation Report of Operation DATE OF PROCEDURE: 01/04/2019 PREPROCEDURE DIAGNOSES: Bacteremia, multiple myeloma, infected right subclavian vein tunneled central venous catheter was subcutaneous port. POSTPROCEDURE DIAGNOSES: Bacteremia, multiple myeloma, infected right subclavian vein tunneled central venous catheter with subcutaneous port. PROCEDURE: Right subclavian vein tunneled central venous catheter with subcutaneous port removal. SURGEON: Dr. Jameson Cristobal M.D. STEM SETTER: Betsey Morales INDICATION: Patient is a 73-year-old female who underwent placement of a right subclavian vein tunneled central venous catheter with subcutaneous port for access for chemotherapy secondary to multiple myeloma. Patient's multiple myeloma is in remission as she is taking oral medication for treatment of her multiple myeloma. Patient presented with hypotension and weakness and was found to have bacteremia with concerns for infected right subclavian vein tunneled catarina tral venous catheter with subcutaneous port. Patient now no longer requires the tunneled central venous catheter with subcutaneous port and will undergo removal of the right subclavian vein tunneled central venous catheter with subcutaneous port. The procedure was described and explained to the patient in detail including drawing of pictures demonstrating the procedure and anatomy. Risks, benefits and alternative treatment options were discussed with the patient. Benefits included but were not limited to removal of the port and central venous catheter reducing the risks of infection and complications from central venous catheter placement. Alternative treatment options included but were not limited to no intervention. Risks included but were not limited to infection, bleeding, renal failure requiring hemodialysis, pneumothorax, hemothorax, nerve injury, scarring, bruising, possible need for transfusion of blood products, anesthetic complications, allergic reaction or complication from material used for prepping and draping, cerebrovascular accident, myocardial infarction, pulmonary embolus, deep venous thrombosis, loss of limb, loss of life, poor satisfaction and poor outcome. Risks of not performing the procedure included but were not limited to infection central venous stenosis and/or occlusion, possible . Patient's questions were answered. Patient voices understanding of these risks, benefits and alternative treatment options. Patient voices acceptance of the risks associated with removal of the central venous catheter with subcutaneous port and consents to proceed. There were no guarantees or promises made to the pat ient regarding the outcome and/or the results of the procedure. ANESTHESIA: Local with 10 cc of 2% lidocaine mixed with 0.5% Marcaine. ESTIMATED BLOOD LOSS: 15 mL. IV FLUID: 150 mL. DRAINS: None SPECIMENS: Thrombus from the tip of the catheter was sent for Gram stain, culture and sensitivity. CONTRAST: None COMPLICATIONS: None IMPLANTS: None PROCEDURE: Patient was prepped and draped in a standard surgical fashion. A time out was completed by myself, and all the team members in the room involved at the initiation of the procedure, confirming the correct patient , procedure and laterality. The skin and subcutaneous tissue overlying the catheter and subcutaneous port were then anesthetized with 2% lidocaine mixed with 0.5% Marcaine. An incision was made through the previous incision used for the initial insertion of the tunneled central venous catheter with subcutaneous port insertion. The incision was carried down through the skin and subcutaneous tissue using a scalpel. The port was sharply dissected free using the scalpel and Metzenbaum scissors. The port and the catheter were then removed. A 4-0 Monocryl was used to approximate the subcutaneous tissue at the catheter tunnel site. The skin was then approximated using 4-0 Monocryl in inverted interrupted fashion. Once hemostasis was achieved, dressings were then applied. Patient tolerated the procedure well. All instrument, sponge and needle counts were correct at the end of the case. There were no complications. Dr. Cristobal was present for directed entire case. Patient was transferred to the recovery area and subsequently transferred back to the ICU in stable condition. The description and results of the procedure were discussed with the patient in the postprocedure holding area with all questions being answered. Fritz Cristobal MD Jan 05, 2019 11:29
[2019-01-05] MEDS ORDERED: FLUCONAZOLE 50MG TABLET PO ONE (12:00)
--- NOTE | 2019-01-05 12:07 | IPNPDOC ---
Subjective Date Seen The patient was seen on 01/05/19. Subjective Chief Complaint/HPI Eschen is comfortable, tachycardia has resolved. Offers no new complaints General: Denies: ROS Unobtainable, Chills, Night Sweats, Fatigue, Malaise, Normal Appetite, Other Symptoms Constitutional: Denies: Chills, Fever, Malaise, Night Sweats, Weakness, Fatigue, Weight Loss, Lethargy, Other Eyes: Denies: Pain, Vision change, Conjunctivae inflammation, Eyelid inflammation, Redness, Other ENT: Denies: Head Aches, Ear Pain, Dysphagia, Sinus Congestion, Post Nasal Drip, Sore Throat, Epistaxis, Other Symptoms Skin: Denies: Rash, Lesions, Jaundice, Bruising, Itching, Dry, Breakdown, Nail Changes, Other Pulmonary: Denies: Dyspnea, Cough, Pleuritic Chest Pain, Other Symptoms Cardiovascular: Denies: Chest Pain, Palpitations, Orthopnea, Paroxysmal Noc. Dyspnea, Edema, Lt Headedness, Other Symptoms Gastrointestinal: Denies: Nausea, Vomiting, Abdominal Pain, Diarrhea, C onstipation, Melena, Hematochezia, Other Symptoms Genitourinary: Denies: Dysuria, Frequency, Incontinence, Hematuria, Retention, Other Symptoms Hematologic: Denies: Bruising, Bleeding Excessively, Petecchia, Purpura, Enlarged Lymph Nodes, Other Hematologic Endocrine: Denies: Polydipsia, Polyphagia, Polyuria, Heat Intolerance, Cold I ntolerance, Other Endocrine Sx Musculoskeletal: Denies: Neck Pain, Back Pain, Shoulder Pain, Arm Pain, Hand Pain, Leg Pain, Foot Pain, Joint Pain, Muscle Pain, Spasms, Other Symptoms Neurological: Denies: Weakness, Numbness, Incoordination, Change in speech, Confusion, Seizures, Other Symptoms Psych: Denies: Mood Normal, Anxiety, Depression, Memory Issues, Thoughts of Self Harm, Anger, Thoughts of Harming Other, Other Psych Objective Physical Examination General Exam: Positive: Alert, Cooperative, Moderate Distress (due to leg pain/cramps), Other ([place]) Eye Exam: Positive: PERRLA, Conjunctiva & lids normal, EOMI ENT Exam: Positive: Atraumatic, Other ENT (dry lips, oral mucosa tachy/dry; upper dentures present) Neck Exam: Positive: Supple, +2 carotid pulse wo bruit Chest Exam: Positive: Clear to auscultation, Normal air movement, Other (right chest wall infusion port (accessed in ED)); Negative: Rales, Rhonchi, Wheezing, Diminished Heart Exam: Positive: Rate Normal, Regular Rhythm (between 64-70 with betablocker on board), Murmurs Telemetry: Positive: No significant arrhythmia, Sinus Abdomen Exam: Positive: Normal bowel sounds, Soft (NT ND ; no tenderness in RUQ, no smith sign, no guarding, no rebound, no rigidity) Extremity Exam: Positive: Normal pulses, Other (no swelling or todd sign bilaterally; ); Negative: Clubbing, Cyanosis, Edema Skin Exam: Positive: Rash (bilateral groin with yeast erythema), Other skin issue (turgor poor with tenting; no mottling , no diaphroesis) Neuro Exam: Positive: Normal Speech, Sensation Intact, Cranial Nerves 3-12 NL Psych Exam: Positive: Mental status NL, Mood NL, Oriented x 3 Assessment /Plan Problems (1) Sepsis Status: Acute (2) Multiple myeloma Status: Acute Plan/VTE VTE Prophylaxis Ordered?: Yes Plan/Urinary Catheter Urinary Catheter: Place Lopez Reason for insertion/continuin: Critical Pt monitoring 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 1) septic shock - levofed stopped at 0800 01/02/19. RESOLVED. due to staph aureus bacteremia - unknown source; continue vanc; ID consulted. vanc level pending today for dose adjustment. High decision making for monitoring vanc to avoid renal toxicity ANETTE did not showed any regurgitation. Avrtrp-y-Rehq also was taken out by Dr. Cristobal, ID follow-up appreciated, will continue IV antibiotics for at least 2 days before getting the midline of PICC line placed and for rest of antibiotics last dose of her antibiotics would be 624 2. Staph aureus bacteremia. consult ID. Repeat BC. consider echo or ANETTE if fever spikes reoccur; continue vanc 3) symptomatic UTI - urine culture is negative. d/c ketty. currently on cefepime/vanc for sepsis 4) CKD stage III with SJ (baseline creatinine 1.18) - RESOLVED. consider restarting MENDEZ-I tomorrow for diabetic renoprotective effects 5) diastolic CHF (neither acute or chronic) - no signs of CHF. D/C IVF; hold diuretic, ACEI,and spironolactone until BP improved off fluid for 24 hours, then consider restarting in AM 01/04/19. Request echo report from Dr Oconnell (done 11/2018) 6) Diabetes - advance diet; cover with 2/3 dose of usual levemir and SSI. hold januvia and Farxiga 7) paroxysmal Afib - currently NSR - continue with xarelto. held betablocker because of sepsis induced hypotension. she is now hemodynamically stable and will restart betablocker 8) Hypothyroid - continue home dose synthroid 9) Tinea cruris - topical nystatin 10)multiple myeloma - hold revlimid; last dose 12/30/18; will use percocet prn for leg/back pain VS, I&O, 24H, Fishbone Vital Signs/I&O Vital Signs Date Time Temp Pulse Resp B/P (MAP) Pulse Ox O2 Delivery O2 Flow Rate FiO2 01/05/19 10:10 123 112/75 01/05/19 08:00 96.3 20 95 2.0 01/01/19 19:22 Room Air I&O- Last 24 Hours up to 6 AM 01/05/19 06:00 Intake Total 1030 ml Output Total 2610 ml Balance -1580 ml Laboratory Data 24H LABS Laboratory Tests 2 01/04/19 12:08: Bedside Glucose (Misc Panel) 102 01/04/19 16:40: Bedside Glucose (Misc Panel) 102 01/04/19 19:49: Bedside Glucose (Misc Panel) 138H 01/05/19 04:38: Immature Granulocyte % (Auto) 0.5, White Blood Count 5.5, Red Blood Count 3.29L, Hemoglobin 10.4L, Hematocrit 33.5L, Mean Corpuscular Volume 101.8H, Mean Corpuscular Hemoglobin 31.6, Mean Corpuscular Hemoglobin Concent 31.0L, Red Cell Distribution Width 16.4H, Platelet Count 157, Neutrophils (%) (Auto) 57.5, Lymphocytes (%) (Auto) 23.4L, Monocytes (%) (Auto) 17.0H, Eosinophils (%) (Auto) 0.5, Basophils (%) (Auto) 1.1H, Neutrophils # (Auto) 3.1, Lymphocytes # (Auto) 1.3L, Monocytes # (Auto) 0.9H, Eosinophils # (Auto) 0.0, Basophils # (Auto) 0.1, Nucleated Red Blood Cells % (auto) 0.4H, Anion Gap 7L, Glomerular Filtration Rate 59.6, Blood Urea Nitrogen 22H, Creatinine 0.98, Sodium Level 140, Potassium Level 3.5, Chloride Level 110H, Carbon Dioxide Level 23, Calcium Level 7.9L CBC/BMP Laboratory Tests 01/05/19 04:38 Red Blood Count 3.29 L, Mean Corpuscular Volume 101.8 H, Mean Corpuscular Hemoglobin 31.6, Mean Corpuscular Hemoglobin Concent 31.0 L, Red Cell Distribution Width 16.4 H, Neutrophils (%) (Auto) 57.5, Lymphocytes (%) (Auto) 23.4 L, Monocytes (%) (Auto) 17.0 H, Eosinophils (%) (Auto) 0.5, Basophils (%) (Auto) 1.1 H, Neutrophils # (Auto) 3.1, Lymphocytes # (Auto) 1.3 L, Monocytes # (Auto) 0.9 H, Eosinophils # (Auto) 0.0, Basophils # (Auto) 0.1, Calcium Level 7.9 L Microbiology Microbiology 01/04/19 Blood Culture - Preliminary, Resulted No growth after 24 hours . All specim... 01/03/19 Blood Culture - Preliminary, Resulted No Growth after 48 hours. All Specime... 01/01/19 Blood Culture - Final, Complete Staphylococcus Aureus 01/01/19 Blood Culture - Final, Complete Staphylococcus Aureus 01/01/19 Urine Culture - Final, Complete 01/04/19 Gram Stain - Final, Resulted 01/04/19 Bacterial Culture, Resulted Pending GIDEON VEGA MD Jan 05, 2019 12:07
[2019-01-05] MEDS ORDERED: ONDANSETRON 4MG/2ML VIAL (J2405) IV PRN (15:00)
[2019-01-05] MEDS: RIVAROXABAN 20 MG TAB (XARELTO) PO SCH (18:16)
[2019-01-05] MEDS: PERCOCET 5MG/325MG TAB PO PRN ×2 (20:33→21:41)
[2019-01-05] MEDS: TRIAMCINOLONE ACET 0.1% CREAM 80 GM TOP PRN (20:34)
[2019-01-05] MEDS: LEVEMIR (INSULIN DETEMIR) 1 UNITS/0.01ML SC SCH (21:36)
[2019-01-06] MEDS: LORazepam 1 MG TAB PO PRN ×2 (00:42→11:46)
[2019-01-06] MEDS: TRIAMCINOLONE ACET 0.1% CREAM 80 GM TOP PRN (00:44)
[2019-01-06 04:00] VITALS: BP 136/80
[2019-01-06] MEDS: PERCOCET 5MG/325MG TAB PO PRN ×3 (04:06→19:48)
[2019-01-06 05:55] LABS: HEMATOCRIT 32.5 % (36.0-47.0); HEMOGLOBIN 10.4 g/dl (12.0-15.5); MEAN CORPUSCULAR HEMOGLOBIN 32.1 pg (27.0-33.0); MEAN CORPUSCULAR VOLUME 100.3 fl (80.0-96.0); PLATELET COUNT, AUTOMATED 163 10^3/uL (150-450); RED BLOOD COUNT 3.24 10^6/uL (4.00-5.40); WHITE BLOOD COUNT 5.1 10^3/uL (4.0-10.0)
[2019-01-06] MEDS: LEVOTHYROXINE 75MCG TABLET (0.075MG) PO SCH (05:57)
[2019-01-06 06:12] LABS: CALCIUM LEVEL 8.1 MG/DL (8.8-10.2); CREATININE FOR GFR 1.1 MG/DL (0.55-1.30); GLOMERULAR FILTRATION RATE 52.1 (>39); POTASSIUM SERUM 4.1 MEQ/L (3.5-5.1)
[2019-01-06 06:33] LABS: EOSINOPHILS 1 % (0-5); LYMPHOCYTES 33 % (16-52); MONOCYTES 14 % (0-8); NEUTROPHILS 52 % (35-75)
[2019-01-06 06:34] LABS: ANISOCYTOSIS 1+; PLATELET ESTIMATE NORMAL (NORMAL)
[2019-01-06] MEDS: HumaLOG INSULIN (NovoLOG) PER UNIT SC SCH ×4 (07:30→20:19)
[2019-01-06 08:00] VITALS: BP 117/72
[2019-01-06] MEDS: MIRALAX *UNIT DOSE* 17GM PACKET PO SCH (09:00)
[2019-01-06] MEDS: PANTOPRAZOLE 40MG TAB (PROTONIX) PO SCH (09:46)
[2019-01-06] MEDS: POTASSIUM CHLORIDE 10 MEQ SR TABLET PO SCH (09:46)
[2019-01-06] MEDS: DOCUSATE SODIUM 100 MG CAP PO SCH ×2 (09:47→20:26)
[2019-01-06] MEDS: BISOPROLOL FUMARATE 10 MG TAB PO SCH ×2 (10:01→20:26)
--- NOTE | 2019-01-06 11:01 | IPNPDOC ---
Subjective Date Seen The patient was seen on 01/06/19. Subjective Chief Complaint/HPI Patient is comfortable. Was to go home soon General: Denies: ROS Unobtainable, Chills, Night Sweats, Fatigue, Malaise, Norm al Appetite, Other Symptoms Constitutional: Denies: Chills, Fever, Malaise, Night Sweats, Weakness, Fatigue, Weight Loss, Lethargy, Other Eyes: Denies: Pain, Vision change, Conjunctivae inflammation, Eyelid inflammation, Redness, Other ENT: Denies: Head Aches, Ear Pain, Dysphagia, Sinus Congestion, Post Nasal Drip, Sore Throat, Epistaxis, Other Symptoms Skin: Denies: Rash, Lesions, Jaundice, Bruising, Itching, Dry, Breakdown, Nail Changes, Other Pulmonary: Denies: Dyspnea, Cough, Pleuritic Chest Pain, Other Symptoms Cardiovascular: Denies: Chest Pain, Palpitations, Orthopnea, Paroxysmal Noc. Dyspnea, Edema, Lt Headedness, Other Symptoms Gastrointestinal: Denies: Nausea, Vomiting, Abdominal Pain, Diarrhea, Constipation, Melena, Hematochezia, Other Symptoms Endocrine: Denies: Polydipsia, Polyphagia, Polyuria, Heat Intolerance, Cold Intolerance, Other Endocrine Sx Musculoskeletal: Denies: Neck Pain, Back Pain, Shoulder Pain, Arm Pain, Hand Pain, Leg Pain, Foot Pain, Joint Pain, Muscle Pain, Spasms, Other Symptoms Neurological: Denies: Weakness, Numbness, Incoordination, Change in speech, Confusion, Seizures, Other Symptoms Objective Physical Examination General Exam: Positive: Alert, Cooperative, Moderate Distress (due to leg pain/cramps), Other ([place]) Eye Exam: Positive: PERRLA, Conjunctiva & lids normal, EOMI ENT Exam: Positive: Atraumatic, Other ENT (dry lips, oral mucosa tachy/dry; upper dentures present) Neck Exam: Positive: Supple, +2 carotid pulse wo bruit Chest Exam: Positive: Clear to auscultation, Normal air movement, Other (right chest wall infusion port (accessed in ED)); Negative: Rales, Rhonchi, Wheezing, Diminished Heart Exam: Positive: Rate Normal, Regular Rhythm (between 64-70 with betablocker on board), Murmurs Telemetry: Positive: No significant arrhythmia, Sinus Abdomen Exam: Positive: Normal bowel sounds, Soft (NT ND ; no tenderness in RUQ, no smith sign, no guarding, no rebound, no rigidity) Extremity Exam: Positive: Normal pulses, Other (no swelling or todd sign bilaterally; ); Negative: Clubbing, Cyanosis, Edema Skin Exam: Positive: Rash (bilateral groin with yeast erythema), Other skin issue (turgor poor with tenting; no mottling , no diaphroesis) Neuro Exam: Positive: Normal Speech, Sensation Intact, Cranial Nerves 3-12 NL Psych Exam: Positive: Mental status NL, Mood NL, Oriented x 3 Assessment /Plan Problems (1) Sepsis Status: Acute (2) Multiple myeloma Status: Acute Plan/VTE VTE Prophylaxis Ordered?: Yes Plan/Urinary Catheter Urinary Catheter: Place Hdez Reason for insertion/continuin: Critical Pt monitoring 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 1) septic shock - levofed stopped at 0800 01/02/19. RESOLVED. due to staph aureus bacteremia - unknown source; continue vanc; ID consulted. vanc level pending today for dose adjustment. High decision making for monitoring vanc to avoid renal toxicity ANETTE did not showed any regurgitation. [id number] also was taken out by Dr. Cristobal, ID follow-up appreciated, will continue IV antibiotics for at least 2 days before getting the midline of PICC line placed and for rest of antibiotics last dose of her antibiotics would be 01/17 2. Staph aureus bacteremia. consult ID. Repeat BC. consider echo or ANETTE if fever spikes reoccur; continue vanc 3) symptomatic UTI - urine culture is negative. d/c hdez. currently on cefepi me/vanc for sepsis 4) CKD stage III with SJ (baseline creatinine 1.18) - RESOLVED. consider restarting MENDEZ-I tomorrow for diabetic renoprotective effects 5) diastolic CHF (neither acute or chronic) - no signs of CHF. D/C IVF; hold diuretic, ACEI,and spironolactone until BP improved off fluid for 24 hours, then consider restarting in AM 01/04/19. Request echo report from Dr Oconnell (done 11/2018) 6) Diabetes - advance diet; cover with 2/3 dose of usual levemir and SSI. hold januvia and Farxiga 7) paroxysmal Afib - currently NSR - continue with xarelto. held betablocker because of sepsis induced hypotension. she is now hemodynamically stable and will restart betablocker 8) Hypothyroid - continue home dose synthroid 9) Tinea cruris - topical nystatin 10)multiple myeloma - hold revlimid; last dose 12/30/18; will use percocet prn for leg/back pain VS, I&O, 24H, Fishbone Vital Signs/I&O Vital Signs Date Time Temp Pulse Resp B/P (MAP) Pulse Ox O2 Delivery O2 Flow Rate FiO2 01/06/19 10:01 154 117/72 01/06/19 08:00 97.5 18 92 2.0 01/01/19 19:22 Room Air I&O- Last 24 Hours up to 6 AM 01/06/19 06:00 Intake Total 1660 ml Output Total 1420 ml Balance 240 ml Laboratory Data 24H LABS Laboratory Tests 2 01/05/19 12:19: Bedside Glucose (Misc Panel) 92 01/05/19 17:08: Bedside Glucose (Misc Panel) 94 01/05/19 21:35: Bedside Glucose (Misc Panel) 104 01/06/19 05:35: Nucleated Red Blood Cells % (auto) 0.6H, Neutrophils 52, Lymphocytes (Manual) 33, Monocytes (Manual) 14H, Eosinophils (Manual) 1, Platelet Estimate NORMAL, Anisocytosis 1+, Macrocytosis 1+, Anion Gap 6L, Glomerular Filtration Rate 52.1, Blood Urea Nitrogen 23H, Creatinine 1.10, Sodium Level 139, Potassium Level 4.1, Chloride Level 111H, Carbon Dioxide Level 22, Calcium Level 8.1L CBC/BMP Laboratory Tests 01/06/19 05:35 Red Blood Count 3.24 L, Mean Corpuscular Volume 100.3 H, Mean Corpuscular Hemoglobin 32.1, Mean Corpuscular Hemoglobin Concent 32.0, Red Cell Distribution Width 16.2 H, Calcium Level 8.1 L Microbiology Microbiology 01/04/19 Blood Culture - Preliminary, Resulted No Growth after 48 hours. All Specime... 01/03/19 Blood Culture - Preliminary, Resulted No Growth after 72 hours. All specime... 01/01/19 Blood Culture - Final, Complete Staphylococcus Aureus 01/01/19 Blood Culture - Final, Complete Staphylococcus Aureus 01/01/19 Urine Culture - Final, Complete 01/04/19 Gram Stain - Final, Complete 01/04/19 Bacterial Culture - Final, Complete GIDEON VEGA MD Jan 06, 2019 11:01
[2019-01-06 12:00] VITALS: BP 118/63
[2019-01-06 16:00] VITALS: BP 131/87
--- NOTE | 2019-01-06 17:40 | IPN ---
DATE: 01/06/2019 Javier Caba is doing better. She just complains of generalized body aches and being uncomfortable. She has had no fever or chills. No nausea, vomiting or diarrhea. No abdominal pain. She is mildly short of breath but would like to get rid of her oxygen. PHYSICAL EXAMINATION: On physical exam, temperature is 97.8, pulse 156, respirations 20, blood pressure 131/87, O2 sat 91% on 2 liters nasal cannula. Heart: Normal S1, S2 irregular. Lungs: Few crackles at the base. No wheezes or rhonchi. Abdomen: Obese, soft, nontender. Extremities: +1 pitting edema bilaterally. No calf tenderness. No rashes. LABORATORY DATA White count is 5.1, hemoglobin 10.4, hematocrit 32.5, platelets 163, 52% neutrophils, 33% lymphocytes, 14% monocytes. Sodium 139, potassium 4.1, chloride 111, bicarbonate 22, BUN 23, creatinine 1.1, glucose 93, calcium 8.1. Microbiology: Blood cultures, two sets, were positive on 01/01/2019, methicillin sensitive Staphylococcus aureus (MSSA). 01/03/2019 blood cultures were negative. 01/04/2019 blood culture negative and [id number]-[id number] culture was negative. ANETTE done by Dr. Bravo shows no vegetations, very mild aortic valve sclerosis, trace aortic regurgitation, mild mitral annular calcification, moderate mitral regurgitation, normal left ventricle and right ventricle ejection fraction. IMPRESSION: 1. Methicillin sensitive Staphylococcus aureus (MSSA) with septic shock from Staphylococcus aureus bacteremia, most likely [id number] was the source. The patient has been on IV cefazolin and will need 2 weeks of IV antibiotics from negative cultures. She has no evidence of endocarditis on transesophageal echocardiogram. At this point, she does not need an [id number] and therefore at this was removed and does not need to be replaced. 2. Chronic kidney disease, creatinine is down to was 1.1. 3. Pedal edema. The patient is asking for her diuretics to be resumed as she is complaining of increasing edema. PLAN: Continue IV cefazolin, end of therapy would be January 18, 2019 with IV cefazolin 2 grams every 8 hours. Consent to resuming diuresis as she is mildly hypoxic and she has increased pedal edema. Hopefully, she can be discharged home in the next 24-48 hours.
[2019-01-06] MEDS: RIVAROXABAN 20 MG TAB (XARELTO) PO SCH (18:13)
[2019-01-06 19:08] VITALS: BP 124/93
[2019-01-06] MEDS: LEVEMIR (INSULIN DETEMIR) 1 UNITS/0.01ML SC SCH (20:20)
[2019-01-06] MEDS: ACETAMINOPHEN TAB 650MG DOSE (2X325MG) PO PRN (23:45)
[2019-01-07] VITALS (9 sets, daily range): BP systolic 112–164; BP diastolic 72–107
[2019-01-07] MEDS: PERCOCET 5MG/325MG TAB PO PRN ×3 (00:21→21:35)
[2019-01-07 05:23] LABS: HEMATOCRIT 32.3 % (36.0-47.0); HEMOGLOBIN 10.2 g/dl (12.0-15.5); MEAN CORPUSCULAR HEMOGLOBIN 31.3 pg (27.0-33.0); MEAN CORPUSCULAR HGB CONC 31.6 g/dl (32.0-36.5); MEAN CORPUSCULAR VOLUME 99.1 fl (80.0-96.0); PLATELET COUNT, AUTOMATED 189 10^3/uL (150-450); RED BLOOD COUNT 3.26 10^6/uL (4.00-5.40); WHITE BLOOD COUNT 5.4 10^3/uL (4.0-10.0)
[2019-01-07] MEDS: LEVOTHYROXINE 75MCG TABLET (0.075MG) PO SCH (05:39)
[2019-01-07 05:49] LABS: CALCIUM LEVEL 8.9 MG/DL (8.8-10.2); CREATININE FOR GFR 1.1 MG/DL (0.55-1.30); GLOMERULAR FILTRATION RATE 52.1 (>39); POTASSIUM SERUM 4.5 MEQ/L (3.5-5.1)
[2019-01-07 05:58] LABS: ATYPICAL LYMPH 1 % (0-5); LYMPHOCYTES 36 % (16-52); METAMYELOCYTES 1 % (0-0); MONOCYTES 10 % (0-8); MYELOCYTES 1 % (0-0); NEUTROPHILS 48 % (35-75)
[2019-01-07 05:59] LABS: PLATELET ESTIMATE NORMAL (NORMAL)
[2019-01-07 06:00] LABS: TEAR DROP CELLS 1+
[2019-01-07] MEDS: HumaLOG INSULIN (NovoLOG) PER UNIT SC SCH ×4 (07:30→20:41)
[2019-01-07] MEDS: PANTOPRAZOLE 40MG TAB (PROTONIX) PO SCH (09:39)
[2019-01-07] MEDS: DOCUSATE SODIUM 100 MG CAP PO SCH ×2 (09:39→20:40)
[2019-01-07] MEDS: ACETAMINOPHEN TAB 650MG DOSE (2X325MG) PO PRN (09:39)
[2019-01-07] MEDS: MIRALAX *UNIT DOSE* 17GM PACKET PO SCH (09:40)
[2019-01-07] MEDS: POTASSIUM CHLORIDE 10 MEQ SR TABLET PO SCH (09:40)
--- NOTE | 2019-01-07 11:19 | IPNPDOC ---
Subjective Date Seen The patient was seen on 01/07/19. Subjective Chief Complaint/HPI Patient is comfortable offers no new complaints except complaining of some swelling of her legs and she is off her diuretics and she wishes to be restarted again General: Denies: ROS Unobtainable, Chills, Night Sweats, Fatigue, Malaise, Normal Appetite, Other Symptoms Constitutional: Denies: Chills, Fever, Malaise, Night Sweats, Weakness, Fatigue, Weight Loss, Lethargy, Other Eyes: Denies: Pain, Vision change, Conjunctivae inflammation, Eyelid inflammation, Redness, Other ENT: Denies: Head Aches, Ear Pain, Dysphagia, Sinus Congestion, Post Nasal Drip, Sore Throat, Epistaxis, Other Symptoms Skin: Denies: Rash, Lesions, Jaundice, Bruising, Itching, Dry, Breakdown, Nail Changes, Other Pulmonary: Denies: Dyspnea, Cough, Pleuritic Chest Pain, Other Symptoms Cardiovascular: Reports: Edema; Denies: Chest Pain, Palpitations, Orthopnea, Paroxysmal Noc. Dyspnea, Lt Headedness, Other Symptoms Gastrointestinal: Denies: Nausea, Vomiting, Abdominal Pain, Diarrhea, Co nstipation, Melena, Hematochezia, Other Symptoms Neurological: Denies: Weakness, Numbness, Incoordination, Change in speech, Confusion, Seizures, Other Symptoms Psych: Denies: Mood Normal, Anxiety, Depression, Memory Issues, Thoughts of Self Harm, Anger, Thoughts of Harming Other, Other Psych Objective Physical Examination General Exam: Positive: Alert, Cooperative, Moderate Distress (due to leg pain/cramps), Other ([place]) Eye Exam: Positive: PERRLA, Conjunctiva & lids normal, EOMI ENT Exam: Positive: Atraumatic, Other ENT (dry lips, oral mucosa tachy/dry; upper dentures present) Neck Exam: Positive: Supple, +2 carotid pulse wo bruit Chest Exam: Positive: Clear to auscultation, Normal air movement, Other (right chest wall infusion port (accessed in ED)); Negative: Rales, Rhonchi, Wheezing, Diminished Heart Exam: Positive: Rate Normal, Regular Rhythm (between 64-70 with betablocker on board), Murmurs Telemetry: Positive: No significant arrhythmia, Sinus Abdomen Exam: Positive: Normal bowel sounds, Soft (NT ND ; no tenderness in RUQ, no smith sign, no guarding, no rebound, no rigidity) Extremity Exam: Positive: Normal pulses, Other (no swelling or todd sign bilaterally; ); Negative: Clubbing, Cyanosis, Edema Skin Exam: Positive: Rash (bilateral groin with yeast erythema), Other skin issue (turgor poor with tenting; no mottling , no diaphroesis) Neuro Exam: Positive: Normal Speech, Sensation Intact, Cranial Nerves 3-12 NL Psych Exam: Positive: Mental status NL, Mood NL, Oriented x 3 Assessment /Plan Problems (1) Sepsis Status: Acute (2) Multiple myeloma Status: Acute Plan/VTE VTE Prophylaxis Ordered?: Yes 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 1) septic shock - levofed stopped at 0800 01/02/19. RESOLVED. due to staph aureus bacteremia - unknown source; continue vanc; ID consulted. vanc level pending today for dose adjustment. High decision making for monitoring vanc to avoid renal toxicity ANETTE did not showed any regurgitation. [id number] also was taken out by Dr. Cristobal, ID follow-up appreciated, Scheduled for placement and continue her antibiotics for 2 more weeks ID follow-up appreciated 2. Staph aureus bacteremia. consult ID. Repeat BC. consider echo or ANETTE if fever spikes reoccur; continue vanc 3) symptomatic UTI - urine culture is negative. d/c hdez. currently on cefepime/vanc for sepsis 4) CKD stage III with SJ (baseline creatinine 1.18) - RESOLVED. consider restarting MENDEZ-I tomorrow for diabetic renoprotective effects 5) diastolic CHF (neither acute or chronic) - no signs of CHF. D/C IVF; restart all home meds c Request echo report from Dr Oconnell (done 11/2018) 6) Diabetes - advance diet; cover with 2/3 dose of usual levemir and SSI. hold januvia and Farxiga 7) paroxysmal Afib - currently NSR - continue with xarelto. held betablocker because of sepsis induced hypotension. she is now hemodynamically stable and will restart betablocker 8) Hypothyroid - continue home dose synthroid 9) Tinea cruris - topical nystatin 10)multiple myeloma - hold revlimid; last dose 12/30/18; will use percocet prn for leg/back pain VS, I&O, 24H, Fishbone Vital Signs/I&O Vital Signs Date Time Temp Pulse Resp B/P (MAP) Pulse Ox O2 Delivery O2 Flow Rate FiO2 01/07/19 08:00 97.4 141 18 133/72 (92) 95 2.0 01/01/19 19:22 Room Air I&O- Last 24 Hours up to 6 AM 01/07/19 06:00 Intake Total 840 ml Output Total 850 ml Balance -10 ml Laboratory Data 24H LABS Laboratory Tests 2 01/06/19 12:12: Bedside Glucose (Misc Panel) 99 01/06/19 17:54: Bedside Glucose (Misc Panel) 94 01/06/19 19:46: Bedside Glucose (Misc Panel) 82L 01/07/19 05:11: Nucleated Red Blood Cells % (auto) 1.8H, Neutrophils 48, Band Neutrophils 3, Lymphocytes (Manual) 36, Monocytes (Manual) 10H, Metamyelocytes 1H, Myelocytes 1H, Atypical Lymphocytes 1, Platelet Estimate NORMAL, Macrocytosis 1+, Tear Drop Cells 1+, Anion Gap 8, Glomerular Filtration Rate 52.1, Blood Urea Nitrogen 24H, Creatinine 1.10, Sodium Level 140, Potassium Level 4.5, Chloride Level 108H, Carbon Dioxide Level 24, Calcium Level 8.9 CBC/BMP Laboratory Tests 01/07/19 05:11 Red Blood Count 3.26 L, Mean Corpuscular Volume 99.1 H, Mean Corpuscular Hemoglobin 31.3, Mean Corpuscular Hemoglobin Concent 31.6 L, Red Cell Distribution Width 16.3 H, Calcium Level 8.9 Microbiology Microbiology 01/04/19 Blood Culture - Preliminary, Resulted No Growth after 72 hours. All specime... 01/03/19 Blood Culture - Preliminary, Resulted No Growth after 72 hours. All specime... 01/01/19 Blood Culture - Final, Complete Staphylococcus Aureus 01/01/19 Blood Culture - Final, Complete Staphylococcus Aureus 01/01/19 Urine Culture - Final, Complete 01/04/19 Gram Stain - Final, Complete 01/04/19 Bacterial Culture - Final, Complete GIDEON VEGA MD Jan 07, 2019 11:19
[2019-01-07] MEDS: LORazepam 1 MG TAB PO PRN ×2 (12:00→20:59)
[2019-01-07] MEDS: BISOPROLOL FUMARATE 10 MG TAB PO SCH ×2 (12:01→20:42)
[2019-01-07] MEDS: FUROSEMIDE 80 MG TAB PO SCH ×2 (13:09→17:00)
[2019-01-07] MEDS: CAPTOpril 12.5 MG TAB PO SCH ×2 (13:10→20:43)
--- NOTE | 2019-01-07 15:38 | IPN ---
DATE: 01/07/2019 INFECTIOUS DISEASE PROGRESS NOTE SUBJECTIVE: The patient is doing much better, examined at bedside. She has no new complaints today. No fevers, chills. No events overnight. She continues to work with physical therapy (PT); however, she still requiring oxygen today. He is restarted on Lasix and is diuresing and tolerating it well. Continues on cefazolin and is otherwise improving. PHYSICAL EXAMINATION: VITAL SIGNS: Temperature 97.4, heart rate 141, respirations 18, blood pressure 133/72, MAP of 92, pulse oximetry 95% on room air. GENERAL: Resting comfortably in bed. No acute distress. Alert and oriented times three. Fully conversant. HEART: Normal S1, S2. Irregular rhythm. Rate is uncontrolled, 140s. LUNGS: Clear throughout with mild rhonchi in the left lower base that clears with coughing. ABDOMEN: Obese, soft, nontender, nondistended. Positive bowel sounds. EXTREMITIES: 1+ pitting edema bilaterally. No calf tenderness. SKIN: No visible lesions or rashes. LABORATORIES: WBC 5.4, hemoglobin and hematocrit 10.2 and 32.3, platelets 189. Sodium and potassium 140 and 4.5. BUN and creatinine 24 and 1.1. Sputum culture results are negative. Blood cultures negative after 72 hours. No new imaging. IMPRESSION/PLAN: 1. Methicillin sensitive Staphylococcus aureus (MSSA) bacteremia without any metastatic complications on ANETTE and CT. She continues on IV cefazolin and will require a total of 2 weeks of antibiotics. Her end date will be 01/18/2019. Her source of infection is most likely her [id number] which has subsequently been removed. She will be getting a peripherally inserted central catheter (PICC) line placed today or tomorrow and we will monitor for any further fevers or sources of infection. 2. History of atrial fibrillation. The patient is currently asymptomatic; however, rate is uncontrolled in the 140s, managed as per primary. 3. Lower extremity edema. The patient has been restarted on her home diuretic, Lasix 80 mg by mouth twice a day, tolerating it well. Monitor volume status. [facility] [place] [facility]
[2019-01-07] MEDS ORDERED: LIDOCAINE 1% MDV 20ML VIAL As Ordered ONE (16:40)
[2019-01-07] MEDS: RIVAROXABAN 20 MG TAB (XARELTO) PO SCH (18:23)
[2019-01-07] MEDS: SODIUM CHLORIDE 0.9% INJ 10 ML SYR IV SCH (18:24)
[2019-01-07] MEDS: LEVEMIR (INSULIN DETEMIR) 1 UNITS/0.01ML SC SCH (20:40)
[2019-01-07] MEDS: METOPROLOL TART 25 MG TABLET PO SCH (20:51)
[2019-01-07] MEDS: SODIUM CHLORIDE 0.9% INJ 10 ML SYR IV PRN (20:54)
[2019-01-08] MEDS: METOPROLOL TART 25 MG TABLET PO SCH ×4 (01:21→17:32)
[2019-01-08] MEDS: PERCOCET 5MG/325MG TAB PO PRN ×4 (01:38→21:26)
[2019-01-08 06:00] VITALS: BP 143/90
[2019-01-08] MEDS: LEVOTHYROXINE 75MCG TABLET (0.075MG) PO SCH (06:10)
[2019-01-08] MEDS: SODIUM CHLORIDE 0.9% INJ 10 ML SYR IV SCH ×2 (06:11→17:31)
[2019-01-08] MEDS: HumaLOG INSULIN (NovoLOG) PER UNIT SC SCH ×4 (06:45→21:00)
[2019-01-08] MEDS: PANTOPRAZOLE 40MG TAB (PROTONIX) PO SCH (08:33)
[2019-01-08] MEDS: POTASSIUM CHLORIDE 10 MEQ SR TABLET PO SCH (08:34)
[2019-01-08] MEDS: BISOPROLOL FUMARATE 10 MG TAB PO SCH ×2 (08:34→21:24)
[2019-01-08] MEDS: DOCUSATE SODIUM 100 MG CAP PO SCH ×2 (08:35→21:24)
[2019-01-08] MEDS: FUROSEMIDE 80 MG TAB PO SCH ×2 (08:35→17:32)
[2019-01-08] MEDS: CAPTOpril 12.5 MG TAB PO SCH ×2 (08:36→21:24)
[2019-01-08] MEDS: LORazepam 1 MG TAB PO PRN (08:51)
[2019-01-08] MEDS: MIRALAX *UNIT DOSE* 17GM PACKET PO SCH (08:52)
--- NOTE | 2019-01-08 09:40 | IPNPDOC ---
Subjective Date Seen The patient was seen on 01/08/19. Subjective Chief Complaint/HPI Patient is comfortable offers no new complaints would preferre to go to acute rehabilitation unit at [facility] General: Denies: ROS Unobtainable, Chills, Night Sweats, Fatigue, Malaise, Normal Appetite, Other Symptoms Constitutional: Denies: Chills, Fever, Malaise, Night Sweats, Weakness, Fatigue, Weight Loss, Lethargy, Other Eyes: Denies: Pain, Vision change, Conjunctivae inflammation, Eyelid inflammation, Redness, Other ENT: Denies: Head Aches, Ear Pain, Dysphagia, Sinus Congestion, Post Nasal Drip, Sore Throat, Epistaxis, Other Symptoms Skin: Denies: Rash, Lesions, Jaundice, Bruising, Itching, Dry, Breakdown, Nail Changes, Other Pulmonary: Denies: Dyspnea, Cough, Pleuritic Chest Pain, Other Symptoms Cardiovascular: Denies: Chest Pain, Palpitations, Orthopnea, Paroxysmal Noc. Dyspnea, Edema, Lt Headedness, Other Symptoms Gastrointestinal: Denies: Nausea, Vomiting, Abdominal Pain, Diarrhea, Constipation, Melena, Hematochezia, Other Symptoms Psych: Denies: Mood Normal, Anxiety, Depression, Memory Issues, Thoughts of Self Harm, Anger, Thoughts of Harming Other, Other Psych Objective Physical Examination General Exam: Positive: Alert, Cooperative, Moderate Distress (due to leg pain/cramps), Other ([place]) Eye Exam: Positive: PERRLA, Conjunctiva & lids normal, EOMI ENT Exam: Positive: Atraumatic, Other ENT (dry lips, oral mucosa tachy/dry; upper dentures present) Neck Exam: Positive: Supple, +2 carotid pulse wo bruit Chest Exam: Positive: Clear to auscultation, Normal air movement, Other (right chest wall infusion port (accessed in ED)); Negative: Rales, Rhonchi, Wheezing, Diminished Heart Exam: Positive: Rate Normal, Regular Rhythm (between 64-70 with betablocker on board), Murmurs Telemetry: Positive: No significant arrhythmia, Sinus Abdomen Exam: Positive: Normal bowel sounds, Soft (NT ND ; no tenderness in RUQ, no smith sign, no guarding, no rebound, no rigidity) Extremity Exam: Positive: Normal pulses, Other (no swelling or todd sign bila terally; ); Negative: Clubbing, Cyanosis, Edema Skin Exam: Positive: Rash (bilateral groin with yeast erythema), Other skin issue (turgor poor with tenting; no mottling , no diaphroesis) Neuro Exam: Positive: Normal Speech, Sensation Intact, Cranial Nerves 3-12 NL Psych Exam: Positive: Mental status NL, Mood NL, Oriented x 3 Assessment /Plan Problems (1) Sepsis Status: Acute (2) Multiple myeloma Status: Acute Plan/VTE VTE Prophylaxis Ordered?: Yes 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 1) septic shock - levofed stopped at 0800 01/02/19. RESOLVED. due to staph aureus bacteremia - unknown source; continue vanc; ID consulted. vanc level pending today for dose adjustment. High decision making for monitoring vanc to avoid renal toxicity ANETTE did not showed any regurgitation. [id number] also was taken out by Dr. Cristobal, ID follow-up appreciated ARU consult called. Since patient has a PICC line. She can be transferred there for IV cefazolin until January 18 2. Staph aureus bacteremia. consult ID. Repeat BC. consider echo or ANETTE if fever spikes reoccur; continue vanc 3) symptomatic UTI - urine culture is negative. d/c ketty. currently on cefepime/vanc for sepsis 4) CKD stage III with SJ (baseline creatinine 1.18) - RESOLVED. consider restarting MENDEZ-I tomorrow for diabetic renoprotective effects 5) diastolic CHF (neither acute or chronic) - no signs of CHF. D/C IVF; restart all home meds c Request echo report from Dr Oconnell (done 11/2018) 6) Diabetes - advance diet; cover with 2/3 dose of usual levemir and SSI. hold januvia and Farxiga 7) paroxysmal Afib - currently NSR - continue with xarelto. held betablocker because of sepsis induced hypotension. she is now hemodynamically stable and will restart betablocker 8) Hypothyroid - continue home dose synthroid 9) Tinea cruris - topical nystatin 10)multiple myeloma - hold revlimid; last dose 12/30/18; will use percocet prn for leg/back pain VS, I&O, 24H, Fishbone Vital Signs/I&O Vital Signs Date Time Temp Pulse Resp B/P (MAP) Pulse Ox O2 Delivery O2 Flow Rate FiO2 01/08/19 08:34 146 142/90 01/08/19 08:32 16 01/08/19 06:00 96.7 93 2.0 I&O- Last 24 Hours up to 6 AM 01/08/19 06:00 Intake Total 1540 ml Output Total 2200 ml Balance -660 ml Laboratory Data 24H LABS Laboratory Tests 2 01/07/19 12:05: Bedside Glucose (Misc Panel) 115H 01/07/19 17:31: Bedside Glucose (Misc Panel) 108 01/07/19 20:41: Bedside Glucose (Misc Panel) 194H 01/08/19 06:18: Bedside Glucose (Misc Panel) 85 Microbiology Microbiology 01/04/19 Blood Culture - Preliminary, Resulted No Growth after 72 hours. All specime... 01/03/19 Blood Culture - Final, Complete NO GROWTH AFTER 5 DAYS 01/01/19 Blood Culture - Final, Complete Staphylococcus Aureus 01/01/19 Blood Culture - Final, Complete Staphylococcus Aureus 01/01/19 Urine Culture - Final, Complete 01/04/19 Gram Stain - Final, Complete 01/04/19 Bacterial Culture - Final, Complete GIDEON VEGA MD Jan 08, 2019 09:40
[2019-01-08 10:00] VITALS: BP 126/86
[2019-01-08 14:00] VITALS: BP 151/98
[2019-01-08] MEDS: RIVAROXABAN 20 MG TAB (XARELTO) PO SCH (17:32)
[2019-01-08 18:00] VITALS: BP 148/98
[2019-01-08] MEDS: LEVEMIR (INSULIN DETEMIR) 1 UNITS/0.01ML SC SCH (21:25)
[2019-01-08 22:00] VITALS: BP 116/68
[2019-01-09] MEDS: METOPROLOL TART 25 MG TABLET PO SCH ×2 (00:42→05:50)
[2019-01-09] MEDS: LORazepam 1 MG TAB PO PRN ×2 (01:05→21:09)
[2019-01-09] MEDS: PERCOCET 5MG/325MG TAB PO PRN ×3 (01:53→17:16)
[2019-01-09] MEDS: LEVOTHYROXINE 75MCG TABLET (0.075MG) PO SCH (05:49)
[2019-01-09] MEDS: SODIUM CHLORIDE 0.9% INJ 10 ML SYR IV SCH ×2 (05:50→17:16)
[2019-01-09 06:00] VITALS: BP 123/75
[2019-01-09] MEDS: HumaLOG INSULIN (NovoLOG) PER UNIT SC SCH ×4 (07:30→21:00)
[2019-01-09] MEDS: MIRALAX *UNIT DOSE* 17GM PACKET PO SCH (07:39)
[2019-01-09] MEDS: DOCUSATE SODIUM 100 MG CAP PO SCH ×2 (07:39→20:57)
[2019-01-09] MEDS: POTASSIUM CHLORIDE 10 MEQ SR TABLET PO SCH (07:39)
[2019-01-09] MEDS: PANTOPRAZOLE 40MG TAB (PROTONIX) PO SCH (07:40)
[2019-01-09] MEDS: CAPTOpril 12.5 MG TAB PO SCH ×2 (07:40→21:00)
[2019-01-09] MEDS: BISOPROLOL FUMARATE 10 MG TAB PO SCH ×2 (07:40→20:59)
[2019-01-09] MEDS: FUROSEMIDE 80 MG TAB PO SCH ×2 (07:41→17:15)
[2019-01-09] MEDS: METOPROLOL TART 50 MG TAB PO SCH ×2 (13:11→21:00)
[2019-01-09 14:00] VITALS: BP 126/78
[2019-01-09] MEDS: RIVAROXABAN 20 MG TAB (XARELTO) PO SCH (17:15)
--- NOTE | 2019-01-09 19:45 | IPNPDOC ---
Text Note Date of Service The patient was seen on 01/09/19. NOTE Pt was seen and examined at bedside. Afib with RVR in AM was noted. Metoprolol increased to 50 q 8hr pt still with rapid ventricular response. Will transfer to PCU. close cardiac monitoring. May give metoprolol 5mg IV or Cardizem 30mg 1V in case of persistent tachy. Pt denies any dizziness or lightheadedness. Denies any chest pain , SOB. PHE: General Exam: Positive: Alert, Cooperative, Moderate Distress (due to leg pain/cramps), Other ([place]) Eye Exam: Positive: PERRLA, Conjunctiva & lids normal, EOMI ENT Exam: Positive: Atraumatic, Other ENT (dry lips, oral mucosa tachy/dry; upper dentures present) Neck Exam: Positive: Supple, +2 carotid pulse wo bruit Chest Exam: Positive: Clear to auscultation, Normal air movement, Other (right chest wall infusion port (accessed in ED)); Negative: Rales, Rhonchi, Wheezing, Diminished Heart Exam: Positive: Rate Normal, Regular Rhythm (between 64-70 with betablocker on board), Murmurs Telemetry: Positive: No significant arrhythmia, Sinus Abdomen Exam: Positive: Normal bowel sounds, Soft (NT ND ; no tenderness in RUQ, no smith sign, no guarding, no rebound, no rigidity) Extremity Exam: Positive: Normal pulses, Other (no swelling or todd sign bilaterally; ); Negative: Clubbing, Cyanosis, Edema Skin Exam: Positive: Rash (bilateral groin with yeast erythema), Other skin issue (turgor poor with tenting; no mottling , no diaphroesis) Neuro Exam: Positive: Normal Speech, Sensation Intact, Cranial Nerves 3-12 NL Psych Exam: Positive: Mental status NL, Mood NL, Oriented x 3 Vital Signs Date Time Temp Pulse Resp B/P (MAP) Pulse Ox O2 Delivery O2 Flow Rate FiO2 01/09/19 17:46 18 01/09/19 17:16 18 01/09/19 14:00 98.0 140 19 126/78 (94) 98 2.0 01/09/19 13:11 147 123/75 01/09/19 12:15 1.0 01/09/19 07:42 97.2 147 18 123/75 96 2.0 01/09/19 07:40 123/75 01/09/19 07:40 147 123/75 01/09/19 06:00 97.2 147 20 123/75 (91) 97 2.0 01/09/19 05:50 148 123/75 01/09/19 02:23 1.0 01/09/19 01:53 18 2.0 01/09/19 00:42 153 127/90 01/08/19 22:00 97.6 149 20 116/68 (84) 94 2.0 01/08/19 21:56 95 01/08/19 21:26 16 01/08/19 21:24 116/68 01/08/19 21:24 157 116/68 01/08/19 21:15 1.0 Intake & Output 01/09/19 06:00 Intake Total 2380 ml Output Total 5475 ml Balance -3095 ml Laboratory Tests 01/08/19 21:19: Bedside Glucose (Misc Panel) 151H 01/09/19 06:02: Bedside Glucose (Misc Panel) 62L 01/09/19 06:27: Bedside Glucose (Misc Panel) 68L 01/09/19 06:47: Bedside Glucose (Misc Panel) 103 01/09/19 11:46: Bedside Glucose (Misc Panel) 101 01/09/19 16:55: Bedside Glucose (Misc Panel) 112H Microbiology 01/04/19 Blood Culture - Final, Complete NO GROWTH AFTER 5 DAYS 01/03/19 Blood Culture - Final, Complete NO GROWTH AFTER 5 DAYS 01/01/19 Blood Culture - Final, Complete Staphylococcus Aureus 01/01/19 Blood Culture - Final, Complete Staphylococcus Aureus 01/01/19 Urine Culture - Final, Complete 01/04/19 Gram Stain - Final, Complete 01/04/19 Bacterial Culture - Final, Complete Current Medications Medications (Trade) Dose Ordered Sig/Scott Route PRN Reason Start Time Stop Time Status Last Admin Dose Admin Acetaminophen (Tylenol Tab) 650 mg Q4HP PRN PO PAIN OR FEVER 01/01/19 22:30 01/07/19 09:39 650 MG Bisoprolol Fumarate (Zebeta) 10 mg BID PO 01/03/19 09:00 01/09/19 07:40 10 MG Captopril (CAPOten) 12.5 mg BID PO 01/07/19 09:00 01/09/19 07:40 12.5 MG Cefazolin Sodium/ Dextrose 2 gm/IV Miscellaneous Supplies 50 ml @ 75 mls/hr Q8H IV 01/04/19 12:00 01/09/19 13:12 75 MLS/HR Docusate Sodium (Colace) 200 mg BID PO 01/03/19 09:00 01/09/19 07:39 200 MG Furosemide (Lasix) 80 mg BID@0900,1700 PO 01/07/19 09:00 01/09/19 17:15 80 MG Heparin Sodium (Heparin (Flush)) 200 units ASDIRECTED PRN IV SEE LABEL COMMENTS 01/07/19 17:30 01/07/19 20:54 200 UNITS Insulin Detemir (Levemir Insulin) 20 units QHS SC 01/03/19 21:00 01/08/19 21:25 20 UNITS Insulin Human Lispro (HumaLOG INSULIN) SEE PROTOCOL TABLE AC SC 01/02/19 07:30 01/08/19 17:32 2 UNITS Levothyroxine Sodium (Synthroid) 75 mcg DAILY@0600 PO 01/02/19 06:00 01/09/19 05:49 75 MCG Lorazepam (Ativan) 1 mg QIDP PRN PO ANXIETY/AGITATION 01/07/19 20:24 01/09/19 01:05 1 MG Menthol/Methyl Salicylate (Bengay Cream) bilateral lower extremites QID PRN TOP PAIN 01/02/19 17:45 01/02/19 18:54 1 DOSE Metoprolol Tartrate (Lopressor) 50 mg Q8H PO 01/09/19 14:00 01/09/19 13:11 50 MG Nystatin (Mycostatin) 1 dose QIDP PRN TOP groin /yeast infection 01/01/19 18:45 01/05/19 20:34 1 DOSE Ondansetron HCl (ZOFRAN INJection) 4 mg Q6HP PRN IV NAUSEA OR VOMITING 01/04/19 14:30 01/09/19 10:41 4 MG Oxycodone/ Acetaminophen (Percocet 5mg/ 325mg Tablet) 1 tab Q4HP PRN PO MILD/MODERATE PAIN (PS 1-7) 01/03/19 09:15 01/09/19 17:16 1 TAB Pantoprazole Sodium (Protonix) 40 mg DAILY PO 01/05/19 09:00 01/09/19 07:40 40 MG Polyethylene Glycol (Miralax) 1 pkt DAILY PO 01/03/19 09:00 01/09/19 07:39 1 PKT Potassium Chloride (Micro-K Extencaps) 40 meq DAILY PO 01/02/19 09:00 01/09/19 07:39 40 MEQ Rivaroxaban (Xarelto) 20 mg DAILY@1800 PO 01/02/19 18:00 01/09/19 17:15 20 MG Sodium Chloride (Saline Lock Flush) 10ML ASDIRECTED PRN IV SEE LABEL COMMENTS 01/07/19 17:30 01/07/19 20:54 10 ML Triamcinolone Acetonide (Kenalog 0.1% Cream) 1 dose BIDP PRN TOP ITCHING 01/05/19 11:15 01/06/19 00:44 1 DOSE A/P recorded previously: Will continue current management. 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 1) septic shock - levofed stopped at 0800 01/02/19. RESOLVED. due to staph aureus bacteremia - unknown source; continue vanc; ID consulted. vanc level pending today for dose adjustment. High decision making for monitoring vanc to avoid renal toxicity ANETTE did not showed any regurgitation. [id number] also was taken out by ALAN Stokes follow-up appreciated ARU consult called. Since patient has a PICC line. She can be transferred there for IV cefazolin until January 18 2. Staph aureus bacteremia. consult ID. Repeat BC. consider echo or ANETTE if fever spikes reoccur; continue vanc 3) symptomatic UTI - urine culture is negative. d/c ketty. currently on cefepime/vanc for sepsis 4) CKD stage III with SJ (baseline creatinine 1.18) - RESOLVED. consider restarting MENDEZ-I tomorrow for diabetic renoprotective effects 5) diastolic CHF (neither acute or chronic) - no signs of CHF. D/C IVF; restart all home meds c Request echo report from Dr Oconnell (done 11/2018) 6) Diabetes - advance diet; cover with 2/3 dose of usual levemir and SSI. hold januvia and Farxiga 7) paroxysmal Afib - - continue with xarelto. metoprolol 50 q 8hr. 5mg IV prn for increased HR. 8) Hypothyroid - continue home dose synthroid 9) Tinea cruris - topical nystatin 10)multiple myeloma - hold revlimid; last dose 12/30/18; will use percocet prn for leg/back pain VS,Fishbone, I+O VS, Fishbone, I+O Vital Signs Date Time Temp Pulse Resp B/P (MAP) Pulse Ox O2 Delivery O2 Flow Rate FiO2 01/09/19 17:46 18 01/09/19 14:00 98.0 140 126/78 (94) 98 2.0 I&O- Last 24 Hours up to 6 AM 01/09/19 06:00 Intake Total 2380 ml Output Total 5475 ml Balance -3095 ml NEHAL PEREZ MD Jan 09, 2019 19:45
[2019-01-09] MEDS: LEVEMIR (INSULIN DETEMIR) 1 UNITS/0.01ML SC SCH (20:58)
[2019-01-09 21:30] VITALS: BP 131/78
[2019-01-09 23:59] VITALS: BP 83/54
[2019-01-10] VITALS (7 sets, daily range): BP systolic 97–137; BP diastolic 61–87
[2019-01-10] MEDS: diltiaZEM 125 MG in NS 100 ML IV SCH ×3 (02:17→04:57)
[2019-01-10] MEDS: LORazepam 1 MG TAB PO PRN ×2 (04:19→22:00)
[2019-01-10] MEDS: LEVOTHYROXINE 75MCG TABLET (0.075MG) PO SCH (06:17)
[2019-01-10] MEDS: METOPROLOL TART 50 MG TAB PO SCH (06:17)
[2019-01-10] MEDS: SODIUM CHLORIDE 0.9% INJ 10 ML SYR IV SCH ×2 (06:17→16:54)
[2019-01-10] MEDS: HumaLOG INSULIN (NovoLOG) PER UNIT SC SCH ×4 (07:30→19:43)
--- NOTE | 2019-01-10 08:35 | REP ---
Procedure: PICC line insertion with Gema The procedure was performed under the direct supervision of Dr. Lemos. The risks and benefits of the procedure were explained to the patient and informed consent was obtained. The left basilic vein was localized using ultrasound guidance. The skin was prepped and draped in a sterile fashion. 2% lidocaine was used as a local anesthetic. Using ultrasound guidance the basilic vein was cannulated and a 0.018 guidewire was inserted and advanced to the SVC using fluoroscopic guidance. The needle was removed and a 5.5 Ethiopian dilator and peel-away sheath was inserted over the guide wire. A 5.5 Ethiopian dual lumen catheter was cut to length of 48 cm. The dilator was removed and the catheter was inserted over the guide wire with the tip ending in the SVC. The peel-away sheath was removed and the catheter was flushed with heparinized saline as per Hospital protocol. The catheter was affixed to the skin and a sterile dressing was applied. The patient tolerated the procedure well and there were no immediate complications. 0.5 minutes of fluoro time was utilized for this procedure. Reviewed by REID Sanford 01/07/2019 05:31 P Electronically Signed by Tom Lemos MD 01/10/2019 08:27 A
[2019-01-10] MEDS: CAPTOpril 12.5 MG TAB PO SCH ×2 (08:38→19:45)
[2019-01-10] MEDS: BISOPROLOL FUMARATE 10 MG TAB PO SCH ×2 (08:38→19:45)
[2019-01-10] MEDS: POTASSIUM CHLORIDE 10 MEQ SR TABLET PO SCH (08:38)
[2019-01-10] MEDS: DOCUSATE SODIUM 100 MG CAP PO SCH ×2 (08:39→19:43)
[2019-01-10] MEDS: FUROSEMIDE 80 MG TAB PO SCH ×2 (08:39→16:54)
[2019-01-10] MEDS: PANTOPRAZOLE 40MG TAB (PROTONIX) PO SCH (08:39)
[2019-01-10] MEDS: MIRALAX *UNIT DOSE* 17GM PACKET PO SCH (08:39)
[2019-01-10] MEDS ORDERED: FLECAINIDE 50MG TABLET PO ONE (11:30)
[2019-01-10] MEDS: PERCOCET 5MG/325MG TAB PO PRN (16:00)
[2019-01-10] MEDS ORDERED: DIGOXIN INJ 0.5 MG/2 ML AMP (J1160) IV STA (16:24)
--- NOTE | 2019-01-10 16:33 | IPNPDOC ---
Date Seen The patient was seen on 01/10/19. Progress Note SUBJECTIVE: Patient reported feeling well and offered no complaints this morning. However, HR was still noted to be elevated in 140-150s despite being on cardizem drip. Medications were adjusted after discussion with Dr. Oconnell. Cardizem drip and metoprolol were discontinued. Started on Flecainide and Digoxin. OBJECTIVE PHYSICAL EXAMINATION: VITAL SIGNS: Please see below. General: No acute distress, Alert Eyes: Normal sclera, EOMI, JESS HENT: Atraumatic, neck supple, moist mucous membranes Cardiovascular: Tachycardic, regular rate. Pulmonary: Clear to auscultation b/l, no wheezing GI: Soft, nontender, nondistended Skin: Warm and dry Neuro: CN grossly intact. No focal deficits. Strengths equal b/l. Psych: oriented x 3 LABORATORY DATA, IMAGING STUDIES, MICROBIOLOGY: Please see below. 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 1. Septic shock - 2/2 Staph aureus bacteremia. - Resolved. Post pressor support. - ID consulted. Planned for IV Cefazolin via PICC until January 18. - Pending placement Nursing and Rehab vs. ARU. - No evidence of vegetation on ECHO. - Repeat blood cultures NTD. 2. UTI s/p treatment 3. SJ on CKD resolved. ACEI restarted. 4. HFpEF- resume home meds. 5. DM- Levemir and ISS. Hold Januvia and Farxiga. 6. Afib - c/w Xarelto. - Not rate controlled. c/w home dose Bisoprolol 10 mg BID. - Started on Digoxin and Flecainide today. Cardiology consulted. - Cardizem drip and PO metoprolol had been discontinued. 7. Hypothyroid - c/w synthroid home dose. 8. MM- hold Revlilmid: last dose 12/30/18. Dispo: N&R or ARU. For evaluation. Not ready to go at this time due to tachycardia. VS, I&O, 24H, Fishbone Vital Signs/I&O Vital Signs Date Time Temp Pulse Resp B/P (MAP) Pulse Ox O2 Delivery O2 Flow Rate FiO2 01/10/19 16:00 20 01/10/19 16:00 2.0 01/10/19 15:57 97.0 119 122/69 (86) 94 I&O- Last 24 Hours up to 6 AM 01/10/19 06:00 Intake Total 960 ml Output Total 3250 ml Balance -2290 ml Laboratory Data 24H LABS Laboratory Tests 2 01/09/19 16:55: Bedside Glucose (Misc Panel) 112H 01/09/19 20:53: Bedside Glucose (Misc Panel) 177H 01/10/19 07:43: Bedside Glucose (Misc Panel) 67L 01/10/19 11:32: Bedside Glucose (Misc Panel) 102 01/10/19 14:51: C-Reactive Protein, Quantitative 4.72H Microbiology Microbiology 01/04/19 Blood Culture - Final, Complete NO GROWTH AFTER 5 DAYS 01/03/19 Blood Culture - Final, Complete NO GROWTH AFTER 5 DAYS 01/01/19 Blood Culture - Final, Complete Staphylococcus Aureus 01/01/19 Blood Culture - Final, Complete Staphylococcus Aureus 01/01/19 Urine Culture - Final, Complete 01/04/19 Gram Stain - Final, Complete 01/04/19 Bacterial Culture - Final, Complete CORINA RODRIGUEZ MD Jan 10, 2019 16:33
[2019-01-10] MEDS: RIVAROXABAN 20 MG TAB (XARELTO) PO SCH (16:53)
--- NOTE | 2019-01-10 18:46 | IPN ---
DATE: 01/10/2019 INFECTIOUS DISEASE PROGRESS NOTE SUBJECTIVE: The patient is seen at bedside and is feeling much better today compared to previous days. She is more able to work with physical therapy (PT) and feeling stronger overall. No fevers, chills, nausea, vomiting, or diarrhea. Continues on cefazolin and tolerating it well. Heart rate still atrial fibrillation and rapid ventricular rate, being managed by primary. She underwent peripherally inserted central catheter (PICC) placement on 01/07/2019, which she tolerated well. PHYSICAL EXAMINATION: VITAL SIGNS: Temperature 97, pulse 144, respirations 18, blood pressure 97/65, MAP is 76, pulse oximetry is 93% on 2 liters nasal cannula. GENERAL: Resting comfortably in bed. No acute distress. Alert and oriented times three. Fully conversant. HEART: Normal S1, S2. Irregular rhythm, rate uncontrolled in the 140s. LUNGS: Clear throughout without any adventitious sounds. ABDOMEN: Obese, soft, nontender, nondistended. Normoactive bowel sounds. EXTREMITIES: Trace pitting edema bilaterally. No calf tenderness or erythema. SKIN: No visible lesions or rashes. MUSCULOSKELETAL: Able to move all extremities. Strength is intact and equal bilaterally. LABORATORIES: No new laboratories since 01/07/2019. IMPRESSION/PLAN: 1. Methicillin sensitive Staphylococcus aureus (MSSA) bacteremia without metastatic complications. Continue IV cefazolin for a total of 2 weeks of antibiotics, end date being 01/18/2019. Repeat blood cultures at the end of December to rule out repeat bacteremia, this should be at least 4 to 5 days after her last set of negative cultures. There is discussion that she is planning to go to rehabilitation possibly tomorrow. If so, she should followup with Dr. Zapien in the clinic in 7 to 10 days after overall hospital discharge. 2. History of atrial fibrillation. The patient is asymptomatic. Rate is not controlled. Medications are being adjusted per primary team. 3. Lower extremity edema, much improved since being restarted on her home diuretics of Lasix with good urine output. MTDD
[2019-01-10] MEDS: LEVEMIR (INSULIN DETEMIR) 1 UNITS/0.01ML SC SCH (19:43)
[2019-01-10] MEDS: FLECAINIDE 50MG TABLET PO SCH (19:45)
[2019-01-11] MEDS ORDERED: zolPIDEM TARTRATE 5 MG TAB PO ONE ×2 (01:15→23:30)
[2019-01-11 04:00] VITALS: BP 132/75
[2019-01-11] MEDS: LEVOTHYROXINE 75MCG TABLET (0.075MG) PO SCH (05:43)
[2019-01-11] MEDS: SODIUM CHLORIDE 0.9% INJ 10 ML SYR IV SCH ×2 (05:44→18:16)
[2019-01-11 06:01] LABS: HEMOGLOBIN 11.2 g/dl (12.0-15.5); MEAN CORPUSCULAR HEMOGLOBIN 32.2 pg (27.0-33.0); MEAN CORPUSCULAR HGB CONC 31.1 g/dl (32.0-36.5); MEAN CORPUSCULAR VOLUME 103.4 fl (80.0-96.0); PLATELET COUNT, AUTOMATED 154 10^3/uL (150-450); RED BLOOD COUNT 3.48 10^6/uL (4.00-5.40); WHITE BLOOD COUNT 5.1 10^3/uL (4.0-10.0)
[2019-01-11 07:00] LABS: CALCIUM LEVEL 8.1 MG/DL (8.8-10.2); CREATININE FOR GFR 1.1 MG/DL (0.55-1.30); GLOMERULAR FILTRATION RATE 52.1 (>39); POTASSIUM SERUM 3.3 MEQ/L (3.5-5.1)
[2019-01-11 07:58] VITALS: BP 141/88
[2019-01-11] MEDS: HumaLOG INSULIN (NovoLOG) PER UNIT SC SCH ×4 (09:15→20:13)
[2019-01-11] MEDS: DIGOXIN 0.25 MG TAB PO SCH (09:16)
[2019-01-11] MEDS: FLECAINIDE 50MG TABLET PO SCH ×2 (09:16→20:03)
[2019-01-11] MEDS: BISOPROLOL FUMARATE 10 MG TAB PO SCH ×2 (09:17→20:03)
[2019-01-11] MEDS: DOCUSATE SODIUM 100 MG CAP PO SCH (09:17)
[2019-01-11] MEDS: CAPTOpril 12.5 MG TAB PO SCH ×2 (09:17→20:03)
[2019-01-11] MEDS: POTASSIUM CHLORIDE 10 MEQ SR TABLET PO SCH (09:18)
[2019-01-11] MEDS: FUROSEMIDE 80 MG TAB PO SCH ×2 (09:18→18:15)
[2019-01-11] MEDS: PANTOPRAZOLE 40MG TAB (PROTONIX) PO SCH (09:18)
[2019-01-11 11:34] VITALS: BP 123/83
[2019-01-11] MEDS: PERCOCET 5MG/325MG TAB PO PRN (13:08)
--- NOTE | 2019-01-11 14:57 | CR ---
DATE OF CONSULTATION: 01/11/2019 REQUESTING PROVIDER: Dr. Violeta Dorantes REASON FOR CONSULTATION: Atrial fibrillation with a rapid ventricular response (RVR). HISTORY OF PRESENT ILLNESS: This is a 73-year-old retired resident of [place], , mother of two who is well known to our cardiology practice with a history of chronic hypertension and mitral valve disorder, complicated by abnormal EKG, paroxysmal atrial fibrillation, (non-rheumatic) and heart failure (diastolic dysfunction). She was admitted to [facility] on 01/01/2019 for sepsis after presenting to the emergency department with 3-4 days of malaise, fevers, chills and leg weakness. She was found to be in septic shock in the emergency room with a systolic blood pressure of 60 that did not respond initially to IV fluids. She was admitted to the ICU and started on pressors as well as broad spectrum antibiotics. Blood cultures grew Staphylococcus Aureus and the most likely source was thought to be her Infusaport, as she has a history of multiple myeloma in remission with chronic REVLIMID therapy. The Infusaport was removed. Blood culture on 01/03/[address] Bravo was consulted for a transesophageal echocardiogram on 01/04/2019, which was negative for vegetations. Sensitivities came back for Staphylococcus Aureus which was methicillin-sensitive and she was put on IV cephazolin therapy with an end date of 01/18/2019. On the morning of 01/09/2019 the patient was noted to be in atrial fibrillation with RVR. Her negative chronotropic therapy was adjusted with minimal therapeutic effect. Her atrial fibrillation with RVR continued, and thus cardiology was consulted. Today, patient is seen in the chair at bedside. She states that she feels a lot better than she was last week. She offers no complaints except that due to her heart rate, she has been recommended by the nursing staff not to get out of bed. She denies feeling like her heart is racing or having any palpitations. She denies chest pain or tightness. She reports no bruising or bleeding. She denies dizziness, shortness of breath, or leg swelling. CARDINAL CARDIAC SYMPTOMS: She denies chest pain, claudication, embolic phenomena, palpitations, shortness of breath or syncope. KNOWN PAST CARDIAC DISEASE/EVENTS/TESTS: Holter monitor 04/25/2005 showed underlying sinus rhythm with normal rate, some rare isolated premature atrial contractions (PACs) averaging less than one per hour. Reported symptoms did not correlate with any arrhythmia. Echocardiogram done 05/15/2015 showed a left ventricular ejection fraction of 70%. Normal left ventricular size, wall thickness and wall motion. Normal left atrial size and currently normal Doppler assessment of left ventricular diastolic function. Normal right heart chamber sizes with Doppler sign of borderline to mild pulmonary hypertension. Normal IVC size and collapse against an elevated central venous pressure at this time. Mild aortic valvular sclerosis with trace insufficiency. Mild mitral annular calcification with mild eccentric mitral insufficiency. No significant change to April 2009. Multi event monitor done 05/11/2015 showed sinus rhythm with an episode of nonsustained atrial tachycardia (10 beats noted over the 30-day monitoring session). No symptomatic patient triggered events noted over the duration of the study. Regadenoson stress SPECT study done 09/05/2015 showed an LVEF of 88%, normal left ventricular wall motion. Normal stress SPECT myocardial perfusion imaging. Transesophageal echo done 01/04/2019 showed no vegetations. Very mild aortic valve sclerosis with trace aortic regurgitation. Mild mitral annular calcification with mild to moderate mitral regurgitation. Normal left and right ventricular systolic function with a left ventricular ejection fraction of 60% by visual estimate. No masses or thrombi seen within the atria or the appendages. CARDIAC PROCEDURES: Ablation done 09/10/2011: Complex ablation of atrial fibrillation and atrial flutter; now with recurrence. CARDIAC RISK FACTORS: Female, age or 55 or greater, obesity. High cholesterol. Hypertension. Diabetes. Former smoker. Family history of premature coronary artery disease. CURRENT INPATIENT MEDICATIONS: - digoxin 0.5 mg given IV last night, 0.2 mg daily by mouth - flecainide 100 mg by mouth twice a day - Ativan 1 mg four times a day as needed - heparin flushes and saline flushes for her PICC line - captopril 12.5 mg by mouth twice a day - Lasix 80 mg by mouth twice a day - Kenalog cream topical for itching - Protonix 40 mg by mouth daily - cephazolin 2 grams IV every 8 hours - sliding scale insulin - Levemir insulin 20 units subcutaneously at bedtime - Percocet 5/325 mg one tablet every 4 hours as needed for pain - Dulcolax suppository and tabs 10 mg daily as needed for constipation - Zebeta 10 mg by mouth twice a day - Colace 20 mg by mouth twice a day - Xarelto 20 mg by mouth daily - BenGay topical four times a day as needed for pain - potassium chloride 40 mEq by mouth daily - Synthroid 75 mcg by mouth daily - Tylenol 650 mg every 4 hours by mouth as needed for pain - nystatin as needed for rash PAST MEDICAL HISTORY: Hypertensive heart disease. Hyperlipidemia. Paroxysmal atrial fibrillation status post ablation. Diastolic congestive heart failure. Diabetes on intermediate project manager insulin. 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 Lung cancer [id number], stage IB, moderately differentiated adenocarcinoma. Multiple myeloma under active treatment. Osteoporosis. PAST SURGICAL HISTORY: Tonsillectomy with adenoidectomy. Left knee. Endoscopy and colonoscopy. Parathyroidectomy. Teeth removal. Bronchoscopy. Right thoracoscopic upper lobectomy and bronchoscopy. Infusaport implantation in 2017. Chest wall portal. Cataract removal. FAMILY HISTORY: Father had colon polyps and from an MVA. Her mother had atrial fibrillation that was diagnosed at age 25, colon polyps, diverticulitis, and heart disease diagnosed at 88 with a pacemaker. She has five brothers, two with atrial fibrillation and colon polyps. She also has two sisters without any current problems. SOCIAL HISTORY: She is and lives with her spouse. She is a retired [employer]. She is generally independent with all of her activities of daily living. She is a former smoker and quit in 1984, she smoked approximately one pack per day for 30 years. She denies alcohol consumption. REVIEW OF SYSTEMS: The patient denies any fevers or weight changes. She denies any chills or night sweats. Eyes: Denies any visual disturbances. She normally wears reading glasses. Ears, nose, mouth and throat: She denies any new hearing loss or tinnitus. She does not need to wear hearing aids. Respiratory: Denies any new cough or sputum production, chest pain, hemoptysis, or shortness of breath. Cardiovascular: Denies any chest pain, palpitations, shortness of breath, leg swelling, claudication, or feeling lightheaded/dizzy/syncopal episodes. Gastrointestinal: Denies abdominal pain, change in appetite, change in bowel habits, dysphagia, gas/bloating, hematemesis, jaundice, melena, nausea, bloody stools and vomiting. : Reports having to use the bathroom at least five times yesterday since restarting her Lasix. She denies hematuria, dysuria, hesitancy, incontinence or oliguria. Musculoskeletal: Reports arthralgias and chronic pain. She denies any new leg cramps or swelling in her legs bilaterally. Skin: Reports a history of psoriasis, otherwise no new lesions or rashes. Neuro: Denies headaches, vertigo, new numbness, dizziness or lightheadedness. Psych: Reports a history of anxiety and panic disorder but denies active depression. Endocrine: Denies hair loss, hirsutism, intolerance to heat or cold, polydipsia, polyphagia, polyuria, prominent eyes or tremor. Hematological/lymphatics: Patient denies any new easy bruising or bleeding, anemia, or new lumps or bumps anywhere. She does have a history of multiple myeloma as well as lung cancer. ALLERGIES/IMMUNOLOGY: Reports seasonal allergies. PHYSICAL EXAMINATION: VITALS: Temperature 97.6, pulse 128 beats per minute and irregular, respiratory rate 18, blood pressure 141/88, pulse oximetry 98% on 2 liters. GENERAL: This is an elderly female who was sitting up in the chair in no acute distress. She is pleasant and cooperative, answering questions appropriately. EYES: Conjunctiva show no icterus or pallor. No xanthelasmas of the upper and lower lids EAR, NOSE, MOUTH, THROAT: Palate normal in appearance. She has upper dentures, the remaining dentition is normal. Her oral mucosa is moist with no cyanosis or pallor. NECK: Trachea is midline. Thyroid is normal in size. Jugular venous pulsations are visible 6 cm above the sternal angle. RESPIRATORY: Respiration rate is normal. She is barrel-chested with reduced chest expansion. Large pendulous breasts. Good inspiratory and expiratory effort. No wheezes, rhonchi or rales bilaterally. CARDIOVASCULAR: No lifts or thrills. Apical impulse was at the fifth intercostal space lateral to the midclavicular line. S1 and S2 are variable in intensity. Persistent splitting of S2 with increased pulmonary component audible over the right base. I am not able to appreciate any murmurs, gallops or rubs. She has normal carotid upstrokes and variable pulse volume because of her arrhythmia. No carotid bruits bilaterally. Abdominal aorta is not palpable. There are no bruits. Femoral pulses, pedal pulses and radial pulses are 2+ and equal bilaterally. EXTREMITIES: No varicosities, pitting edema, clubbing, cyanosis, or splinter hemorrhages of the fingernails. ABDOMEN: Positive bowel sounds. Her abdomen is soft and nontender. No abdominal masses. Midclavicular span of the liver is 9 cm. RECTAL EXAM: Not indicated. MUSCULOSKELETAL: Able to move all extremities equally. 5/5 muscle strength bilaterally in the upper and lower extremities. SKIN: No icterus, lesions or pallor. NEURO: Oriented to person, place and time. Mood is normal. Affect is normal. LABORATORY DATA: CBC: WBC 5.1, hemoglobin 11.2, hematocrit 36.0, platelets 154. No differential. Chemistries: Sodium 142. She is hypokalemic with a potassium of 3.3. Chloride was 100, carbon dioxide 36, anion gap 6, BUN 14, creatinine 1.10, fasting glucose 108, calcium 8.1. Microbiology: Initial blood cultures were positive for Staphylococcus Aureus times two. Repeat blood cultures done on 01/03 and 01/04/2019 were negative. Culture from the tip of the Infusaport catheter was negative. Chest x-ray done 01/03/2019 independently reviewed showed the airway was midline. The patient is slightly rotated but bony structures appear to be intact. She has small linear fibrosis in the left upper lobe with an elevated right hemidiaphragm. Her Infusaport was seen in the right upper chest with the tip in the superior vena cava. Telemetry electrodes overlie the chest. Chest CT without contrast (09/07/17), reviewed independently, shows mild cardiomegaly. Moderately dilated left atrium, probable normal sized left ventricle, and mildly dilated right heart chambers with dilated pulmonary trunk and IVC. Minimal calcification of the aortic annulus and posterior mitral annulus. No coronary artery calcification or pericardial effusion. Normal sized thoracic aorta with atherosclerotic calcification of the arch. ASSESSMENT/PLAN: 1. Paroxysmal atrial fibrillation with rapid ventricular response, recurrent status post AF ablation. Most likely related to her underlying obesity, hypertension, and mitral valve disorder. Recurrence triggered by her acute bacterial septicemia. Ventricular response requiring multiple agents. Have recommended digoxin and flecainide be added to her bisoprolol. She continues on Xarelto anticoagulation therapy. On telemetry she still has recurrent rapid ventricular response. Will give an additional dose of IV digoxin tonight. Will continue monitoring with digoxin level and serial EKGS. 2. Chronic diastolic congestive heart failure. Despite her rapid ventricular response and atrial fibrillation, she appears to be compensated at this time. Would recommend a 1500 cc fluid restriction, along with modest salt restriction. Continue efforts to control her ventricular response and improve left ventricular diastolic filling time. She continues on diuretic therapy with Lasix and potassium supplementation, additional supplementation given tonight. She continues on Zebeta 10 mg by mouth twice a day. 3. Hypertensive heart disease and heart failure. Current blood pressure appears to be controlled. Dietary measures and diuretics as per assessment #2. She continues on Zebeta and Captopril. Renal function is stable though she was mildly hypokalemic this morning. 4. Aortic and mitral valve disorder (nonrheumatic)/insufficiency. No murmur appreciated. No symptoms or signs of endocarditis. Most recent echocardiogram notable for a mild aortic valve sclerosis with trace aortic regurgitation as well as mild mitral annular calcification with mild to moderate mitral regurgitation. No vegetations are noted. 5. Hypercholesterolemia. Her home statin is on hold. This should be resumed outpatient following discharge when the patient is stable. Thank you for asking us to participate in the care of this patient. We will follow her along with you. AUDRA
[2019-01-11 15:43] VITALS: BP 122/75
--- NOTE | 2019-01-11 16:18 | IPNPDOC ---
Date Seen The patient was seen on 01/11/19. Progress Note SUBJECTIVE: Patient reported feeling generalized weakness but otherwise no other significant complaints. HR improved from yesterday but still elevated intermittently. 110s this AM, later came down to 90s after morning medications. On Bisoprolol, Flecainide and Digoxin. OBJECTIVE PHYSICAL EXAMINATION: VITAL SIGNS: Please see below. General: No acute distress, Alert Eyes: Normal sclera, EOMI, JESS HENT: Atraumatic, neck supple, moist mucous membranes Cardiovascular: Tachycardic Pulmonary: Clear to auscultation b/l, no wheezing GI: Soft, nontender, nondistended Skin: Warm and dry Neuro: CN grossly intact. No focal deficits. Strengths equal b/l. Psych: oriented x 3 LABORATORY DATA, IMAGING STUDIES, MICROBIOLOGY: Please see below. 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 1. Septic shock - 2/2 Staph aureus bacteremia. - Resolved. Post pressor support. - ID following. Planned for IV Cefazolin via PICC until January 18. - Pending placement Nursing and Rehab vs. ARU. - No evidence of vegetation on ECHO. - Repeat blood cultures NTD. - Repeat blood cultures at the end of December to assess for resolution, 4-5 days after previous culture. - f/u with Dr. Zapien 7-10 days post discharge. 2. UTI s/p treatment 3. SJ on CKD resolved. ACEI restarted. 4. HFpEF- resume home meds. 5. DM- Levemir and ISS. Hold Januvia and Farxiga. 6. Afib - c/w Xarelto. - Improved from yesterday but still tachycardic. - c/w home dose Bisoprolol 10 mg BID. - Started on Digoxin and Flecainide. Cardiology consulted. - Cardizem drip and PO metoprolol had been discontinued. 7. Hypothyroid - c/w synthroid home dose. 8. MM- hold Revlilmid: last dose 12/30/18. Dispo: N&R or ARU. For evaluation. Not ready to go at this time due to tachycar melva. VS, I&O, 24H, Fishbone Vital Signs/I&O Vital Signs Date Time Temp Pulse Resp B/P (MAP) Pulse Ox O2 Delivery O2 Flow Rate FiO2 01/11/19 15:43 96.9 122 18 122/75 (91) 93 2.0 I&O- Last 24 Hours up to 6 AM 01/11/19 06:00 Intake Total 2950 ml Output Total 2800 ml Balance 150 ml Laboratory Data 24H LABS Laboratory Tests 2 01/10/19 16:41: Bedside Glucose (Misc Panel) 84 01/10/19 19:41: Bedside Glucose (Misc Panel) 137H 01/11/19 05:45: Nucleated Red Blood Cells % (auto) 0.6H, Anion Gap 6L, Glomerular Filtration Rate 52.1, Blood Urea Nitrogen 14, Creatinine 1.10, Sodium Level 142, Potassium Level 3.3L, Chloride Level 100, Carbon Dioxide Level 36H, Calcium Level 8.1L 01/11/19 11:31: Bedside Glucose (Misc Panel) 135H CBC/BMP Laboratory Tests 01/11/19 05:45 Red Blood Count 3.48 L, Mean Corpuscular Volume 103.4 H, Mean Corpuscular Hemoglobin 32.2, Mean Corpuscular Hemoglobin Concent 31.1 L, Red Cell Distribution Width 17.4 H, Calcium Level 8.1 L Microbiology Microbiology 01/04/19 Blood Culture - Final, Complete NO GROWTH AFTER 5 DAYS 01/03/19 Blood Culture - Final, Complete NO GROWTH AFTER 5 DAYS 01/01/19 Blood Culture - Final, Complete Staphylococcus Aureus 01/01/19 Blood Culture - Final, Complete Staphylococcus Aureus 01/01/19 Urine Culture - Final, Complete 01/04/19 Gram Stain - Final, Complete 01/04/19 Bacterial Culture - Final, Complete CORINA RODRIGUEZ MD Jan 11, 2019 16:18
--- NOTE | 2019-01-11 17:34 | ECGEPIP ---
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
[2019-01-11] MEDS ORDERED: DIGOXIN INJ 0.5 MG/2 ML AMP (J1160) IV STA (17:37)
[2019-01-11] MEDS ORDERED: POTASSIUM CHLORIDE 10 MEQ SR TABLET PO ONE (17:45)
--- NOTE | 2019-01-11 18:00 | IPN ---
DATE: 01/11/2019 Mrs. Urbina is doing fairly well. She states her shortness of breath and palpitations have improved, but she is expecting to be seen by Dr. Oconnell for atrial fibrillation uncontrolled. As per patient, she will not be transferred to a rehabilitation until her pulse is better controlled. She had an ablation done many years ago. LABORATORY DATA: White count is 5.1, hemoglobin 11.2, hematocrit 36, platelets 154. Sodium 142, potassium 3.3, chloride 100, bicarbonate 36, BUN 14, creatinine 1.1, glucose 108, calcium 8.1. C-reactive protein (CRP) 4.72 down from 23.7. Blood cultures positive for methicillin-sensitive Staphylococcus aureus (MSSA) on 01/01/2019 and negative on 01/03/2019. Patient on currently on intravenous (IV) cefazolin at the dose 2 grams every 8 hours IMPRESSION: 1. Methicillin-sensitive Staphylococcus aureus (MSSA) sepsis with bacteremia, status post removal of [id number]. Transesophageal echocardiography (ANETTE) negative . Patient does not have any foreign material and therefore will be treated for total of 14 days for uncomplicated Staphylococcus aureus bacteremia. End of therapy will be on 01/18/2019. 2. Uncontrolled atrial fibrillation. Cardiology is being consulted. Currently on digoxin and flecainide. PLAN Patient will need surveillance blood cultures done 72 hours after cefazolin is discontinued. MTDD
[2019-01-11] MEDS: RIVAROXABAN 20 MG TAB (XARELTO) PO SCH (18:15)
[2019-01-11] MEDS: ONDANSETRON 4MG/2ML VIAL (J2405) IV PRN (18:16)
[2019-01-11 20:00] VITALS: BP 105/56
[2019-01-11] MEDS: LORazepam 1 MG TAB PO PRN (20:12)
[2019-01-11] MEDS: LEVEMIR (INSULIN DETEMIR) 1 UNITS/0.01ML SC SCH (20:12)
[2019-01-11 23:59] VITALS: BP 123/68
[2019-01-12 04:00] VITALS: BP 144/75
[2019-01-12] MEDS: SODIUM CHLORIDE 0.9% INJ 10 ML SYR IV SCH ×2 (05:55→17:10)
[2019-01-12] MEDS: LEVOTHYROXINE 75MCG TABLET (0.075MG) PO SCH (05:55)
[2019-01-12] MEDS: PERCOCET 5MG/325MG TAB PO PRN (06:04)
[2019-01-12 06:14] LABS: HEMATOCRIT 34.6 % (36.0-47.0); HEMOGLOBIN 10.8 g/dl (12.0-15.5); MEAN CORPUSCULAR HEMOGLOBIN 31.4 pg (27.0-33.0); MEAN CORPUSCULAR HGB CONC 31.2 g/dl (32.0-36.5); MEAN CORPUSCULAR VOLUME 100.6 fl (80.0-96.0); PLATELET COUNT, AUTOMATED 149 10^3/uL (150-450); RED BLOOD COUNT 3.44 10^6/uL (4.00-5.40)
[2019-01-12 07:16] LABS: ALBUMIN 2.2 GM/DL (3.2-5.2); CREATININE FOR GFR 1.05 MG/DL (0.55-1.30); DIGOXIN LEVEL 1.6 NG/ML (0.5-2.0); MAGNESIUM LEVEL 1.9 MG/DL (1.8-2.4); PHOSPHORUS LEVEL 2.4 MG/DL (2.5-4.9); POTASSIUM SERUM 3.4 MEQ/L (3.5-5.1)
[2019-01-12] MEDS: HumaLOG INSULIN (NovoLOG) PER UNIT SC SCH ×4 (07:20→20:29)
[2019-01-12 08:00] VITALS: BP 128/66
[2019-01-12] MEDS: FLECAINIDE 50MG TABLET PO SCH ×2 (08:35→20:28)
[2019-01-12] MEDS: BISOPROLOL FUMARATE 10 MG TAB PO SCH ×2 (08:35→20:28)
[2019-01-12] MEDS: CAPTOpril 12.5 MG TAB PO SCH ×2 (08:35→21:22)
[2019-01-12] MEDS: POTASSIUM CHLORIDE 10 MEQ SR TABLET PO SCH ×4 (08:35→20:28)
[2019-01-12] MEDS: DIGOXIN 0.25 MG TAB PO SCH (08:36)
[2019-01-12] MEDS: PANTOPRAZOLE 40MG TAB (PROTONIX) PO SCH (08:36)
[2019-01-12] MEDS: FUROSEMIDE 80 MG TAB PO SCH ×2 (08:36→17:08)
[2019-01-12] MEDS: LORazepam 1 MG TAB PO PRN ×2 (08:40→21:26)
[2019-01-12 12:00] VITALS: BP 108/62
--- NOTE | 2019-01-12 14:59 | IPN ---
DATE: 01/12/2019 CARDIOLOGY PROGRESS NOTE SUBJECTIVE: Patient has been up in her room ambulating as well as ambulating in the naik and has been free of any chest discomfort, shortness of breath, palpitations or dizziness, despite her ongoing atrial flutter/fibrillation. Appears to be tolerating her medications without adverse effect. OBJECTIVE: Pleasant obese elderly lady lying virtually flat on her bed. Current heart rate 118 per minute and irregular, blood pressure 144/75, respiratory rate 18, O2 saturation 90% on 2 liters. Afebrile. Weight 177 pounds, height 60 inches, BMI 34.7. No pallor or central cyanosis. Trachea midline. Neck veins remain approximately 6 cm above the sternal angle. Increased anteroposterior chest diameter with large pendulous breasts. Good air entry over both lung begum with no current abnormal pulmonary adventitious sounds. Apical impulse lateral to the midclavicular line fifth intercostal space. S1 and S2 are somewhat distant, but variable. Increased pulmonary component of S2. No apparent pericardial rub, but has a soft variable systolic murmur at the right base. Normal carotid upstrokes with variable volume related to her arrhythmia. Soft abdomen. Normal pedal pulses with plus/minus pitting edema of her distal lower legs and sacrum. LABOR DELIVERY RN: Continues in atrial fibrillation with controlled ventricular response on her combination medical therapy. LABORATORY DATA: Blood work today shows a hemoglobin of 10.8, normal white blood cell count and platelet count. Has been on her Xarelto 20 mg daily. Chemistry shows a slight hypokalemia of 3.4, bicarb 35, magnesium was 1.9. Serum calcium 8.0 with albumin 2.2, BUN 10, creatinine 1.05, fasting glucose this morning 58. Her digoxin level this morning was 1.6. IMPRESSION/PLAN: 1. Sustained atrial fibrillation: Current ventricular response remains somewhat fast despite combination digoxin, bisoprolol and flecainide. She has been on these agents for several days with persistent atrial tachyarrhythmia. A followup EKG will be obtained in the morning and should this should show persistent atrial fibrillation/flutter. We will arrange for elective direct current cardioversion tomorrow morning. She remains on Xarelto. 2. Chronic diastolic congestive heart failure: Has been free of any symptom or sign of congestion on her present combination diuretic therapy. I have adjusted her potassium replacement to 20 mEq q.i.d. Remains on medications to help control her ventricular response. 3. Hypertensive heart disease (benign with heart failure): Current blood pressure remains controlled on her combination Zebeta, captopril and diuretic therapy. Renal function remains stable. 4. Aortic and mitral valve disorder (nonrheumatic)/insufficiency: Has a very soft variable systolic ejection murmur likely related to aortic valvular sclerosis. I cannot detect an insufficiency murmur. Remains afebrile. I have discussed my tentative plan with the patient who appears to understand and agree. We will continue to follow her closely with you.
[2019-01-12] MEDS: ACETAMINOPHEN TAB 650MG DOSE (2X325MG) PO PRN (15:06)
--- NOTE | 2019-01-12 15:35 | IPNPDOC ---
Date Seen The patient was seen on 01/12/19. Progress Note SUBJECTIVE: Patient reported feeling weak but otherwise no complaints. HR had trended down and stayed <100 most of the time with episodes of tachycardia after exertion. Patient requests sleeping medications at night. OBJECTIVE PHYSICAL EXAMINATION: VITAL SIGNS: Please see below. General: No acute distress, Alert Eyes: Normal sclera, EOMI, JESS HENT: Atraumatic, neck supple, moist mucous membranes Cardiovascular: Normal rate. Pulmonary: Clear to auscultation b/l, no wheezing GI: Soft, nontender, nondistended Skin: Warm and dry Neuro: CN grossly intact. No focal deficits. Strengths equal b/l. Psych: oriented x 3 LABORATORY DATA, IMAGING STUDIES, MICROBIOLOGY: Please see below. 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 1. Septic shock - 2/2 Staph aureus bacteremia. - Resolved. Post pressor support. - ID following. Planned for IV Cefazolin via PICC until January 18. - Nursing and Rehab vs. ARU vs home - No evidence of vegetation on ECHO. - Repeat blood cultures NTD. - Repeat blood cultures at the end of December to assess for resolution, 4-5 days after previous culture. - f/u with Dr. Zapien 7-10 days post discharge. 2. UTI s/p treatment 3. SJ on CKD resolved. ACEI restarted. 4. HFpEF- resume home meds. 5. DM- Levemir and ISS. Hold Januvia and Farxiga. 6. Afib - Improving but still with episodes of tachycardia. - c/w Xarelto. - c/w home dose Bisoprolol 10 mg BID. - Started on Digoxin and Flecainide. Cardiology following. - Cardizem drip and PO metoprolol had been discontinued. - May require elective cardioversion if persistent tachy. 7. Hypothyroid - c/w synthroid home dose. 8. MM- hold Revlilmid: last dose 12/30/18. Dispo: N&R, ARU vs home. VS, I&O, 24H, Fishbone Vital Signs/I&O Vital Signs Date Time Temp Pulse Resp B/P (MAP) Pulse Ox O2 Delivery O2 Flow Rate FiO2 01/12/19 12:00 97.0 92 20 108/62 (77) 90 1.0 I&O- Last 24 Hours up to 6 AM 01/12/19 06:00 Intake Total 1870 ml Output Total 1650 ml Balance 220 ml Laboratory Data 24H LABS Laboratory Tests 2 01/11/19 17:36: Bedside Glucose (Misc Panel) 107 01/11/19 20:09: Bedside Glucose (Misc Panel) 163H 01/12/19 05:56: Nucleated Red Blood Cells % (auto) 0.0, Blood Urea Nitrogen 10, Creatinine 1.05, Sodium Level 141, Potassium Level 3.4L, Chloride Level 100, Carbon Dioxide Level 35H, Anion Gap 6L, Glomerular Filtration Rate 55.0, Calcium Level 8.0L, Phosphorus Level 2.4L, Magnesium Level 1.9, Albumin 2.2L, Digoxin Level 1.6 01/12/19 11:24: Bedside Glucose (Misc Panel) 122H CBC/BMP Laboratory Tests 01/12/19 05:56 Red Blood Count 3.44 L, Mean Corpuscular Volume 100.6 H, Mean Corpuscular Hemoglobin 31.4, Mean Corpuscular Hemoglobin Concent 31.2 L, Red Cell Distribution Width 17.1 H, Anion Gap 6 L Microbiology Microbiology 01/04/19 Blood Culture - Final, Complete NO GROWTH AFTER 5 DAYS 01/03/19 Blood Culture - Final, Complete NO GROWTH AFTER 5 DAYS 01/04/19 Gram Stain - Final, Complete 01/04/19 Bacterial Culture - Final, Complete CORINA RODRIGUEZ MD Jan 12, 2019 15:35
[2019-01-12 16:00] VITALS: BP 91/53
[2019-01-12] MEDS: RIVAROXABAN 20 MG TAB (XARELTO) PO SCH (17:08)
[2019-01-12 20:00] VITALS: BP 112/60
[2019-01-12] MEDS ORDERED: diphenhydrAMINE 25 MG CAP PO PRN (20:15)
[2019-01-12] MEDS: LEVEMIR (INSULIN DETEMIR) 1 UNITS/0.01ML SC SCH (20:27)
[2019-01-12 23:59] VITALS: BP 136/78
[2019-01-13 04:00] VITALS: BP 125/83
[2019-01-13] MEDS: LEVOTHYROXINE 75MCG TABLET (0.075MG) PO SCH (05:12)
[2019-01-13] MEDS: SODIUM CHLORIDE 0.9% INJ 10 ML SYR IV SCH ×2 (05:13→16:52)
[2019-01-13 05:40] LABS: HEMATOCRIT 35.4 % (36.0-47.0); HEMOGLOBIN 10.8 g/dl (12.0-15.5); MEAN CORPUSCULAR HEMOGLOBIN 31.7 pg (27.0-33.0); MEAN CORPUSCULAR HGB CONC 30.5 g/dl (32.0-36.5); MEAN CORPUSCULAR VOLUME 103.8 fl (80.0-96.0); PLATELET COUNT, AUTOMATED 146 10^3/uL (150-450); RED BLOOD COUNT 3.41 10^6/uL (4.00-5.40); WHITE BLOOD COUNT 6.5 10^3/uL (4.0-10.0)
[2019-01-13] MEDS: LORazepam 1 MG TAB PO PRN (05:45)
[2019-01-13 05:49] LABS: CALCIUM LEVEL 8.2 MG/DL (8.8-10.2); CREATININE FOR GFR 1.06 MG/DL (0.55-1.30); GLOMERULAR FILTRATION RATE 54.4 (>39); POTASSIUM SERUM 3.7 MEQ/L (3.5-5.1)
[2019-01-13] MEDS ORDERED: LR 1,000 ML IV SCH (06:00)
[2019-01-13] MEDS: HumaLOG INSULIN (NovoLOG) PER UNIT SC SCH ×4 (07:19→20:22)
--- NOTE | 2019-01-13 07:38 | ECGEPIP ---
[facility] Test Date: 2019-01-12 Pat Name: ISMAEL MONGE Department: Room: [place] [address] Gender: Female D[employer] Hand: KHURRAM : 1945 Requested By: TIANNA ROSS Order Number: [id number] Reading MD: Kunal Kruse Measurements Intervals Start Rate: 119 P: [place]: -1 QRS: 12 QRSD: 90 T: QT: 251 QTc: 354 Interpretive Statements Atrial flutter with moderate ventricular response Low QRS complex voltage in the limb leads Inferior wall AR, age indeterminate Nonspecific ST-T wave abnormalities No significant change when compared to prior tracing of 01/11/2019 Electronically Signed on 01-13-2019 7:38:31 EDT by Kunal Kruse
--- NOTE | 2019-01-13 07:55 | ECGEPIP ---
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
[2019-01-13 08:00] VITALS: BP 137/85
[2019-01-13] MEDS: POTASSIUM CHLORIDE 10 MEQ SR TABLET PO SCH ×4 (09:21→20:37)
[2019-01-13] MEDS: CAPTOpril 12.5 MG TAB PO SCH ×2 (09:21→20:36)
[2019-01-13] MEDS: FUROSEMIDE 80 MG TAB PO SCH ×2 (09:22→16:50)
[2019-01-13] MEDS: DIGOXIN 0.25 MG TAB PO SCH (09:22)
[2019-01-13] MEDS: FLECAINIDE 50MG TABLET PO SCH ×2 (09:22→20:37)
[2019-01-13] MEDS: BISOPROLOL FUMARATE 10 MG TAB PO SCH ×2 (09:22→20:36)
[2019-01-13] MEDS: PANTOPRAZOLE 40MG TAB (PROTONIX) PO SCH (09:22)
[2019-01-13] MEDS ORDERED: REVL10CA2 PO (09:24)
[2019-01-13 12:00] VITALS: BP 141/75
[2019-01-13] MEDS: ONDANSETRON 4MG/2ML VIAL (J2405) IV PRN (12:42)
--- NOTE | 2019-01-13 15:33 | RO ---
DATE OF PROCEDURE: 01/13/2019 PROCEDURE: Direct-current cardioversion. SENIOR STAFF PSYCHOLOGIST: Dr. Fritz Oconnell ANESTHESIOLOGIST: Dr. Jimenez PREOPERATIVE DIAGNOSIS: Sustained atrial fibrillation. POSTOPERATIVE DIAGNOSES: 1. Successful conversion of atrial fibrillation. 2. Sinus node dysfunction with transient sinus arrest post conversion. CLINICAL SUMMARY: This 73-year-old woman with known chronic hypertension/hypertensive heart disease complicated by abnormal EKG, paroxysmal atrial fibrillation, and heart failure (diastolic dysfunction), was recently admitted to hospital because of sepsis. Following appropriate resuscitation with IV fluid and antibiotic therapy. The patient has been doing well. January 09, 2019, unfortunately she developed a recurrent atrial fibrillation with rapid ventricular response. We had adjusted her antiarrhythmic/antitachycardia therapy and unfortunately she has remained in atrial fibrillation though her ventricular response at this time is controlled. She is currently free of other cardiovascular complaints and is tentatively scheduled for discharge possibly tomorrow. Her current cardiovascular status is compensated. Pleasant obese elderly lady lying virtually flat. Heart rate 110-118 bpm and irregular, blood pressure 144/75, respiratory rate 18, O2 saturation 90% on 2 liters. BMI 34.7. Trachea midline. Increased anteroposterior chest diameter with fairly good air entry over both lung begum and no current abnormal adventitious sounds. Has plus/minus lower extremity pitting edema. EKG this morning shows sustained atrial fibrillation with improved controlled ventricular response. DESCRIPTION OF PROCEDURE: In the fasting state following informed consent, the patient was taken to the recovery room and connected to a bedside cardioverter defibrillator using pads that were self-adhesive in an anteroposterior configuration. She was also being monitored from the standpoint of her oxygen and blood pressure. She was receiving supplemental oxygen. Anesthesia administered medication to blunt her awareness and a single synchronized direct current shock of 200 joules was applied using a biphasic system. Her atrial fibrillation was terminated with an 8-second asystolic pause that was terminated by several external chest compressions. She is currently in sinus bradycardia with rate 51 bpm. Within minutes her awareness was restored and her blood pressure was 101/55, O2 saturation 94% on supplemental oxygen by nasal prongs at 4 liters. Postprocedure EKG is pending at this time. Later today she should be able to get up and ambulate in preparation for tentative discharge tomorrow. From the cardiac standpoint she will remain on a combination digoxin 0.25 mg daily, flecainide 100 mg by mouth twice a day, bisoprolol 10 mg twice a day, and Xarelto 20 mg daily. She will also continue on her captopril 12.5 mg twice a day and Lasix 80 mg twice a day. Her diet - no added salt with 1500 mL fluid intake restriction will be resumed. No apparent complications. The patient tolerated procedure well.
--- NOTE | 2019-01-13 15:50 | IPNPDOC ---
Date Seen The patient was seen on 01/13/19. Progress Note SUBJECTIVE: Patient again reported feeling weak but otherwise feels fine. HR remains intermittently elevated. Underwent cardioversion this AM with cardiology with improvement in HR in 50s. OBJECTIVE PHYSICAL EXAMINATION: VITAL SIGNS: Please see below. General: No acute distress, Alert Eyes: Normal sclera, EOMI, JESS HENT: Atraumatic, neck supple, moist mucous membranes Cardiovascular: Bradycardic Pulmonary: Clear to auscultation b/l, no wheezing GI: Soft, nontender, nondistended Skin: Warm and dry Neuro: CN grossly intact. No focal deficits. Strengths equal b/l. Psych: oriented x 3 LABORATORY DATA, IMAGING STUDIES, MICROBIOLOGY: Please see below. 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 1. Septic shock - 2/2 Staph aureus bacteremia. - Resolved. Post pressor support. - ID following. Planned for IV Cefazolin via PICC until January 18. - Nursing and Rehab vs. ARU vs home - No evidence of vegetation on ECHO. - Repeat blood cultures NTD. - Repeat blood cultures at the end of December to assess for resolution, 4-5 days after previous culture. - f/u with Dr. Zapien 7-10 days post discharge. 2. UTI s/p treatment 3. SJ on CKD resolved. ACEI restarted. 4. HFpEF- resume home meds. 5. DM- Levemir and ISS. Hold Januvia and Farxiga. 6. Afib - s/p elective cardioversion. - c/w Xarelto and home dose Bisoprolol 10 mg BID. - Started on Digoxin and Flecainide. Cardiology following. 7. Hypothyroid - c/w synthroid home dose. 8. MM- hold Revlilmid: last dose 12/30/18. Dispo: Likely can be d/c home tomorrow? VS, I&O, 24H, Fishbone Vital Signs/I&O Vital Signs Date Time Temp Pulse Resp B/P (MAP) Pulse Ox O2 Delivery O2 Flow Rate FiO2 01/13/19 15:24 54 16 113/66 (82) 96 3 01/13/19 14:47 98.3 I&O- Last 24 Hours up to 6 AM 01/13/19 06:00 Intake Total 1090 ml Output Total 500 ml Balance 590 ml Laboratory Data 24H LABS Laboratory Tests 2 01/12/19 17:03: Bedside Glucose (Misc Panel) 105 01/12/19 20:03: Bedside Glucose (Misc Panel) 169H 01/13/19 05:04: Nucleated Red Blood Cells % (auto) 0.0, Anion Gap 4L, Glomerular Filtration Rate 54.4, Blood Urea Nitrogen 13, Creatinine 1.06, Sodium Level 142, Potassium Level 3.7, Chloride Level 101, Carbon Dioxide Level 37H, Calcium Level 8.2L 01/13/19 09:22: Bedside Glucose (Misc Panel) 64L 01/13/19 10:00: Bedside Glucose (Misc Panel) 125H 01/13/19 11:24: Bedside Glucose (Misc Panel) 81L 01/13/19 15:32: Bedside Glucose (Misc Panel) 81L CBC/BMP Laboratory Tests 01/13/19 05:04 Red Blood Count 3.41 L, Mean Corpuscular Volume 103.8 H, Mean Corpuscular Hemoglobin 31.7, Mean Corpuscular Hemoglobin Concent 30.5 L, Red Cell Distribution Width 17.3 H, Calcium Level 8.2 L Microbiology Microbiology 01/04/19 Blood Culture - Final, Complete NO GROWTH AFTER 5 DAYS 01/03/19 Blood Culture - Final, Complete NO GROWTH AFTER 5 DAYS 01/04/19 Gram Stain - Final, Complete 01/04/19 Bacterial Culture - Final, Complete CORINA RODRIGUEZ MD Jan 13, 2019 15:50
[2019-01-13 16:20] VITALS: BP 103/52
[2019-01-13] MEDS: RIVAROXABAN 20 MG TAB (XARELTO) PO SCH (16:50)
--- NOTE | 2019-01-13 17:22 | ECGEPIP ---
[facility] Test Date: 2019-01-13 Pat Name: ISMAEL MONGE Department: Room: [place] [address] Gender: Female [employer] Architect: KHURRAM : 1945 Requested By: Fritz Oconnell Order Number: [id number] Reading MD: Kunal Kruse Measurements Intervals [place] Rate: 53 P: 65 [place]: 196 QRS: 27 QRSD: 86 T: 34 QT: 417 QTc: 394 Interpretive Statements Sinus bradycardia Low QRS complex voltage in the limb leads Nonspecific ST-T wave abnormalities Compared to prior tracing of 01/13/2019, atrial flutter has resolved Electronically Signed on 01-13-2019 17:21:52 EDT by Kunal Kruse
[2019-01-13 20:00] VITALS: BP 103/46
[2019-01-13] MEDS: RAMELTEON 8 MG TAB (ROZEREM) PO SCH (20:36)
[2019-01-13] MEDS: LEVEMIR (INSULIN DETEMIR) 1 UNITS/0.01ML SC SCH (20:36)
[2019-01-13] MEDS: PERCOCET 5MG/325MG TAB PO PRN (20:38)
[2019-01-13 23:59] VITALS: BP 94/52
[2019-01-14 04:00] VITALS: BP 89/52
[2019-01-14 04:30] VITALS: BP 90/54
[2019-01-14 05:22] LABS: HEMATOCRIT 32.2 % (36.0-47.0); HEMOGLOBIN 9.8 g/dl (12.0-15.5); MEAN CORPUSCULAR HEMOGLOBIN 32.1 pg (27.0-33.0); MEAN CORPUSCULAR HGB CONC 30.4 g/dl (32.0-36.5); MEAN CORPUSCULAR VOLUME 105.6 fl (80.0-96.0); PLATELET COUNT, AUTOMATED 149 10^3/uL (150-450); RED BLOOD COUNT 3.05 10^6/uL (4.00-5.40); WHITE BLOOD COUNT 7.6 10^3/uL (4.0-10.0)
[2019-01-14] MEDS: SODIUM CHLORIDE 0.9% INJ 10 ML SYR IV SCH ×2 (05:48→17:11)
[2019-01-14 05:49] LABS: CALCIUM LEVEL 8.5 MG/DL (8.8-10.2); CREATININE FOR GFR 1.56 MG/DL (0.55-1.30); GLOMERULAR FILTRATION RATE 34.8 (>39); POTASSIUM SERUM 4.5 MEQ/L (3.5-5.1)
[2019-01-14] MEDS: LEVOTHYROXINE 75MCG TABLET (0.075MG) PO SCH (05:56)
[2019-01-14] MEDS: HumaLOG INSULIN (NovoLOG) PER UNIT SC SCH ×4 (07:30→21:00)
[2019-01-14 08:00] VITALS: BP 100/51
[2019-01-14] MEDS: FUROSEMIDE 80 MG TAB PO SCH (08:10)
[2019-01-14] MEDS: CAPTOpril 12.5 MG TAB PO SCH ×2 (08:10→20:49)
[2019-01-14] MEDS: BISOPROLOL FUMARATE 10 MG TAB PO SCH ×2 (08:10→20:48)
[2019-01-14] MEDS: DIGOXIN 0.25 MG TAB PO SCH (08:10)
[2019-01-14] MEDS: PANTOPRAZOLE 40MG TAB (PROTONIX) PO SCH (08:21)
[2019-01-14] MEDS: FLECAINIDE 50MG TABLET PO SCH ×2 (08:21→20:47)
[2019-01-14] MEDS: POTASSIUM CHLORIDE 10 MEQ SR TABLET PO SCH (08:21)
--- NOTE | 2019-01-14 10:39 | IPN ---
DATE OF SERVICE: 01/13/2019 SUBJECTIVE: The patient is seen at bedside laying in the bed with the bed elevated at a 30 degree angle. She denies any chest discomfort, shortness of breath, palpitations or dizziness, or feeling her heart racing despite ongoing atrial flutter/fibrillation. She has been tolerating her medications well, however, on telemetry she continues to be in atrial fibrillation/flutter. She has been mostly controlled in the 80s, however has had some bouts of tachycardia up into the 150s and 160s. OBJECTIVE: VITALS: Temperature 96.7, pulse 96 and irregular, respiratory rate 18, blood pressure 137/85, 93% on 2 liters. CONSTITUTIONAL: Pleasant, obese, elderly lady lying in bed. HEENT: No pallor central cyanosis. NECK: Trachea is midline. Her neck veins can be appreciated approximately 6 cm above the sternal angle. LUNGS: Increased AP chest diameter. Lungs are clear to auscultation bilaterally without wheezes, rhonchi or rales. CARDIOVASCULAR: Apical impulse lateral to the midclavicular line fifth intercostal space. Distant heart sounds, S1 and S2 are still variable. She does have increased pulmonary component of S2. No gallops or rubs, however she does have a soft variable systolic murmur at the right base. Normal carotid upstrokes with very variable volume related to her arrhythmia. ABDOMEN: Soft, normoactive bowel sounds, nontender to palpation. EXTREMITIES: Normal radial and pedal pulses bilaterally with mild edema of the distal lower legs . TELEMETRY: Continue with atrial fibrillation with controlled ventricular response, review of events revealed at least two episodes of tachycardia into the 150s and 160s. LABORATORY DATA: CBC: WBC 6.5, hemoglobin 10.8, hematocrit 35.4, platelets 146. CHEMISTRY: Sodium 142, potassium 3.9, chloride 101, carbon dioxide 37, anion gap 4, BUN 13, creatinine 1.06, fasting glucose 70, calcium 8.2. IMPRESSION/PLAN: 1. Sustained atrial fibrillation. Her current ventricular response seems mostly controlled on her combination of digoxin, flecainide and bisoprolol. The plan is to cardiovert her this afternoon. She does remain on Xarelto. 2. Chronic diastolic congestive heart failure (CHF). She has been free of symptoms of congestion on her present combination diuretic therapy. She remains on potassium supplementation as well. She also remains on medications to help control her ventricular response. 3. Hypertensive heart disease (benign with heart failure). Blood pressure remains controlled on the combination bisoprolol, captopril, and diuretic therapy. Her renal function is stable. 4. Aortic and mitral valve disorder (nonrheumatic)/insufficiency. Has a very soft variable systolic ejection murmur likely related to aortic valvular sclerosis. No insufficiency murmurs detected on physical exam. Plan is to cardiovert this afternoon. We will continue to follow.
[2019-01-14 12:00] VITALS: BP 101/50
--- NOTE | 2019-01-14 12:55 | REP ---
Chest x-ray: Two views. History: Hemoptysis. Comparison study: January 03, 2019. Findings: EKG monitoring electrodes overlie the chest. There is a left-sided PICC line in place with its tip in the expected location of the superior vena cava. The heart is mildly enlarged unchanged. There is blunting of the right lateral pleural angle indicating a small quantity of right pleural fluid. Interstitial markings are diffusely increased in the left lung and to a lesser extent the right lower lung field and upper lung field. No new infiltrate is seen. Findings are suggestive of interstitial pulmonary edema. Right hilar fullness is again noted unchanged. Impression: Diffuse interstitial pattern in the lung begum left greater than right. Blunted right pleural angle. The thoracotomy changes on the right. Electronically Signed by Tom Lemos MD 01/14/2019 12:46 P
[2019-01-14] MEDS: ONDANSETRON 4MG/2ML VIAL (J2405) IV PRN (13:17)
--- NOTE | 2019-01-14 15:04 | IPNPDOC ---
Date Seen The patient was seen on 01/14/19. Progress Note SUBJECTIVE: Patient noted to be hypotensive this AM with BP 89-90s systolic. Digoxin, Bisoprolol and Lasix were held. Also reports diarrhea and hemoptysis. Patient think that that is due to her sinus being too dry from oxygen. o2 taken off for monitor. Repeat CXR. Xarelto held. OBJECTIVE PHYSICAL EXAMINATION: VITAL SIGNS: Please see below. General: No acute distress, Alert Eyes: Normal sclera, EOMI, JESS HENT: Atraumatic, neck supple, moist mucous membranes Cardiovascular: Bradycardic Pulmonary: Clear to auscultation b/l, no wheezing GI: Soft, nontender, nondistended Skin: Warm and dry Neuro: CN grossly intact. No focal deficits. Strengths equal b/l. Psych: oriented x 3 LABORATORY DATA, IMAGING STUDIES, MICROBIOLOGY: Please see below. 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 1. Septic shock - 2/2 Staph aureus bacteremia. - Resolved. Post pressor support. - ID following. Planned for IV Cefazolin via PICC until January 18. - Nursing and Rehab vs. ARU vs home - No evidence of vegetation on ECHO. - Repeat blood cultures NTD. - f/u repeat blood cultures, drawn 01/14/19. - f/u with Dr. Zapien 7-10 days post discharge. 2. UTI s/p treatment 3. SJ on CKD resolved. ACEI restarted. 4. HFpEF- resume home meds. 5. DM- Levemir and ISS. Hold Januvia and Farxiga. 6. Afib - s/p elective cardioversion. - c/w Xarelto and home dose Bisoprolol 10 mg BID. - Started on Digoxin and Flecainide. Cardiology following. - Morning dose of bisoprolol and digoxin held due to hypotension/bradycardia. - Patient to get 750cc IVF today and decrease Lasix dose tomorrow. - Monitor BP. 7. Hypothyroid - c/w synthroid home dose. 8. MM- hold Revlilmid: last dose 12/30/18. 9. Hemoptysis- CXR showed no infiltrate or mass. No reported further episode. Dispo: Likely can be d/c home tomorrow? VS, I&O, 24H, Fishbone Vital Signs/I&O Vital Signs Date Time Temp Pulse Resp B/P (MAP) Pulse Ox O2 Delivery O2 Flow Rate FiO2 01/14/19 12:00 97.7 58 20 101/50 (67) 90 2.0 I&O- Last 24 Hours up to 6 AM 01/14/19 06:00 Intake Total 1640 ml Output Total 1500 ml Balance 140 ml Laboratory Data 24H LABS Laboratory Tests 2 01/13/19 15:32: Bedside Glucose (Misc Panel) 81L 01/13/19 16:47: Bedside Glucose (Misc Panel) 107 01/13/19 20:15: Bedside Glucose (Misc Panel) 194H 01/14/19 05:03: Nucleated Red Blood Cells % (auto) 0.0, Anion Gap 2L, Glomerular Filtration Rate 34.8L, Blood Urea Nitrogen 17, Creatinine 1.56H, Sodium Level 139, Potassium Level 4.5#, Chloride Level 101, Carbon Dioxide Level 36H, Calcium Level 8.5L, C- Reactive Protein, Quantitative 8.91H 01/14/19 11:40: Bedside Glucose (Misc Panel) 163H CBC/BMP Laboratory Tests 01/14/19 05:03 Red Blood Count 3.05 L, Mean Corpuscular Volume 105.6 H, Mean Corpuscular Hemoglobin 32.1, Mean Corpuscular Hemoglobin Concent 30.4 L, Red Cell Distribution Width 17.7 H, Calcium Level 8.5 L Microbiology Microbiology 01/14/19 Blood Culture, Received Pending 01/14/19 Blood Culture, Received Pending 01/04/19 Blood Culture - Final, Complete NO GROWTH AFTER 5 DAYS 01/04/19 Gram Stain - Final, Complete 01/04/19 Bacterial Culture - Final, Complete CORINA RODRIGUEZ MD Jan 14, 2019 15:04
[2019-01-14 16:00] VITALS: BP 113/55
[2019-01-14] MEDS ORDERED: NS 500 ML IV ONE (16:00)
--- NOTE | 2019-01-14 18:05 | IPN ---
DATE: 01/13/2019 Mrs. Urbina is doing well. She is complaining of some fatigue. She had direct cardioversion done today by Dr. Oconnell and went from the atrial fibrillation to sinus rhythm. She denies any chest pain. She is still using oxygen. She continues to desaturate without the oxygen. HEART: Normal S1, S2. No murmurs. LUNGS: Diminished breath sounds at the bases but clear. ABDOMEN: Soft, obese, nontender. EXTREMITIES: No edema. Temperature is 96.6, pulse 60, respirations 23, oxygen saturation 93% on 2 liters nasal cannula. LABORATORY DATA: White count of 6.5, hemoglobin 10.8, hematocrit 35.4, platelets 146. Sodium 142, potassium 3.7, chloride 101, bicarbonate 37, BUN 13, creatinine 1.06, glucose 70, calcium 8.2. Last CRP was done January 10 and was 4.72, down from 23.7. IMPRESSION: 1. Methicillin-sensitive Staphylococcus aureus (MSSA) septic shock, resolved. The patient to continue IV antibiotics until January 18. [id number] was removed. Cultures from the port site were negative. Transesophageal echocardiogram showed no evidence of endocarditis, and therefore the patient will be treated with a total of 14 days of antibiotic from removal of the line. 2. Paroxysmal atrial fibrillation status post cardioversion. The patient in sinus rhythm. Medications have been adjusted by cardiology. Currently on furosemide 80 mg twice a day, Xarelto 20 mg daily, and flecainide 100 mg by mouth twice a day. PLAN: Continue IV cefazolin through a peripherally inserted central catheter (PICC) line, 2 grams every 8 hours. Not a continuous infusion. 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 PICC line will be removed on January 18 after her last dose of antibiotic. Lab work will be done on Thursday, including complete blood count (CBC), basic C-reactive protein (CRP). Surveillance blood cultures will be done 72 hours after antibiotics will be discontinued. The prescription was ordered. Blood cultures done on January 22.
[2019-01-14 20:00] VITALS: BP 122/56
[2019-01-14] MEDS: RAMELTEON 8 MG TAB (ROZEREM) PO SCH (20:50)
[2019-01-14] MEDS: LEVEMIR (INSULIN DETEMIR) 1 UNITS/0.01ML SC SCH (21:03)
[2019-01-14] MEDS ORDERED: NS 250 ML IV ONE (23:00)
[2019-01-14] MEDS: ACETAMINOPHEN TAB 650MG DOSE (2X325MG) PO PRN (23:32)
[2019-01-15] VITALS (10 sets, daily range): BP systolic 100–140; BP diastolic 56–64
[2019-01-15] MEDS: LORazepam 1 MG TAB PO PRN ×2 (01:44→09:48)
[2019-01-15 05:02] LABS: HEMOGLOBIN 9.6 g/dl (12.0-15.5); MEAN CORPUSCULAR HEMOGLOBIN 32.5 pg (27.0-33.0); MEAN CORPUSCULAR VOLUME 105.1 fl (80.0-96.0); PLATELET COUNT, AUTOMATED 144 10^3/uL (150-450); RED BLOOD COUNT 2.95 10^6/uL (4.00-5.40); WHITE BLOOD COUNT 8.6 10^3/uL (4.0-10.0)
[2019-01-15 05:22] LABS: CALCIUM LEVEL 8.2 MG/DL (8.8-10.2); CREATININE FOR GFR 1.45 MG/DL (0.55-1.30); GLOMERULAR FILTRATION RATE 37.9 (>39); POTASSIUM SERUM 4.7 MEQ/L (3.5-5.1)
[2019-01-15] MEDS: LEVOTHYROXINE 75MCG TABLET (0.075MG) PO SCH (05:46)
[2019-01-15] MEDS: SODIUM CHLORIDE 0.9% INJ 10 ML SYR IV SCH ×2 (05:47→20:15)
[2019-01-15] MEDS: FLECAINIDE 50MG TABLET PO SCH ×2 (08:44→22:39)
[2019-01-15] MEDS: HumaLOG INSULIN (NovoLOG) PER UNIT SC SCH ×3 (08:44→18:00)
[2019-01-15] MEDS: PANTOPRAZOLE 40MG TAB (PROTONIX) PO SCH (08:45)
[2019-01-15] MEDS: CAPTOpril 12.5 MG TAB PO SCH ×2 (08:45→21:00)
[2019-01-15] MEDS: BISOPROLOL FUMARATE 10 MG TAB PO SCH ×2 (08:47→21:00)
[2019-01-15] MEDS ORDERED: MIRALAX *UNIT DOSE* 17GM PACKET PO SCH (09:00)
[2019-01-15] MEDS: IPRATROPIUM 0.5MG/ALBUTEROL 2.5MG INH SOL UD 3ML (DUONEB)(J7620) NEB PRN ×2 (09:24→13:49)
[2019-01-15] MEDS: FUROSEMIDE 100 MG/10 ML VIAL (J1940) IV SCH ×2 (09:50→17:24)
[2019-01-15] MEDS: guaiFENesin SYRUP 200 MG/10 ML UDC PO PRN ×2 (10:56→22:55)
--- NOTE | 2019-01-15 12:37 | IPNPDOC ---
Date Seen The patient was seen on 01/15/19. Progress Note SUBJECTIVE: Patient's BP had been stable, was hypotensive yesterday. HR in 50s. Digoxin had been discontinued. Reportedly had been having diarrhea throughout the day, has not been taking any stool softener. Oxygen requirement up to 4L and appeared more SOB yesterday. Lasix was held yesterday 2/2 hypotension. Restarted IV today. Xarelto held, still has some blood in cough with reported dry sinuses. OBJECTIVE PHYSICAL EXAMINATION: VITAL SIGNS: Please see below. General: No acute distress, Alert Eyes: Normal sclera, EOMI, JESS HENT: Atraumatic, neck supple, moist mucous membranes Cardiovascular: Bradycardic Pulmonary: Clear to auscultation b/l, no wheezing GI: Soft, nontender, nondistended Skin: Warm and dry Neuro: CN grossly intact. No focal deficits. Strengths equal b/l. Psych: oriented x 3 LABORATORY DATA, IMAGING STUDIES, MICROBIOLOGY: Please see below. 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 1. Septic shock - 2/2 Staph aureus bacteremia. - Resolved. Post pressor support. - ID following. Planned for IV Cefazolin via PICC until January 18. - Nursing and Rehab vs. ARU vs home - No evidence of vegetation on ECHO. - Repeat blood cultures NTD. - To repeat blood cultures 01/22/19. - f/u with Dr. Zapien 7-10 days post discharge. 2. UTI s/p treatment 3. SJ on CKD resolved. ACEI restarted. 4. HFpEF - Wean O2 if able. Daily weights. Hypoxic. Fluid overload evident on CXR, aggressive diurese at this time. 5. DM- Levemir and ISS. Hold Januvia and Farxiga. 6. Afib - s/p elective cardioversion. - c/w Xarelto and home dose Bisoprolol 10 mg BID, and Flecainide 100 BID. - Bradycardic. Digoxin d/c. 7. Hypothyroid - c/w synthroid home dose. 8. MM- hold Revlilmid: last dose 12/30/18. 9. Hemoptysis- CXR showed no infiltrate or mass. No reported further episode. VS, I&O, 24H, Fishbone Vital Signs/I&O Vital Signs Date Time Temp Pulse Resp B/P (MAP) Pulse Ox O2 Delivery O2 Flow Rate FiO2 01/15/19 08:45 124/56 01/15/19 08:00 96.4 50 18 94 4.0 I&O- Last 24 Hours up to 6 AM 01/15/19 06:00 Intake Total 1800 ml Output Total 800 ml Balance 1000 ml Laboratory Data 24H LABS Laboratory Tests 2 01/14/19 16:38: Bedside Glucose (Misc Panel) 87 01/14/19 20:42: Bedside Glucose (Misc Panel) 120H 01/15/19 01:06: Bedside Glucose (Misc Panel) 93 01/15/19 04:29: Nucleated Red Blood Cells % (auto) 0.0, Anion Gap 5L, Glomerular Filtration Rate 37.9L, Blood Urea Nitrogen 25H, Creatinine 1.45H, Sodium Level 137, Potassium Level 4.7, Chloride Level 101, Carbon Dioxide Level 31, Calcium Level 8.2L 01/15/19 12:08: Bedside Glucose (Misc Panel) 48L CBC/BMP Laboratory Tests 01/15/19 04:29 Red Blood Count 2.95 L, Mean Corpuscular Volume 105.1 H, Mean Corpuscular Hemoglobin 32.5, Mean Corpuscular Hemoglobin Concent 31.0 L, Red Cell Distr ibution Width 17.4 H, Calcium Level 8.2 L Microbiology Microbiology 01/14/19 Blood Culture - Preliminary, Resulted No growth after 24 hours . All specim... 01/14/19 Blood Culture - Preliminary, Resulted No growth after 24 hours . All specim... CORINA RODRIGUEZ MD Jan 15, 2019 12:37
[2019-01-15] MEDS: IPRATROPIUM 0.5MG/ALBUTEROL 2.5MG INH SOL UD 3ML (DUONEB)(J7620) NEB SCH ×2 (16:37→23:59)
--- NOTE | 2019-01-15 16:54 | ECGEPIP ---
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
[2019-01-15] MEDS ORDERED: FUROSEMIDE 20 MG TAB PO SCH (17:00)
[2019-01-15] MEDS ORDERED: SITagliptin 50 MG TAB (JANUVIA) PO SCH (17:30)
[2019-01-15 17:41] LABS: CLOSTRIDIUM DIFFICILE PCR NEGATIVE (NEGATIVE)
[2019-01-15] MEDS ORDERED: RIVAROXABAN 20 MG TAB (XARELTO) PO SCH (18:00)
[2019-01-15 18:14] LABS: ABG BASE EXCESS -0.6 (-2.0-2.0); ABG O2 SATURATION 84.4 % (95.0-99.0); ABG PARTIAL PRESSURE CO2 75.4 mmHg (35.0-45.0); ABG PARTIAL PRESSURE O2 61.8 mmHg (75.0-100.0); ABG STANDARD HCO3 23.8 MEQ/L (22.0-26.0); ABG TOTAL CO2 31.3 MEQ/L (23.0-31.0); ABG pH (ARTERIAL) 7.203 UNITS (7.350-7.450)
[2019-01-15] MEDS ORDERED: ONDANSETRON 4MG/2ML VIAL (J2405) IV PRN (18:30)
[2019-01-15] MEDS ORDERED: TRIAMCINOLONE ACET 0.1% OINTMENT 15 GM TOP PRN (18:30)
[2019-01-15] MEDS: DOCUSATE SODIUM 100 MG CAP PO SCH (18:30)
[2019-01-15] MEDS ORDERED: BISACODYL 5 MG TAB PO PRN (18:30)
[2019-01-15] MEDS ORDERED: BISACODYL 10 MG SUPP PR PRN (18:30)
[2019-01-15] MEDS: VITAMIN D 1,000 INTERNATIONAL UNITS TABLET PO SCH (18:45)
[2019-01-15] MEDS: MULTIVITAMINS/MINERALS THERAP 1 TAB PO SCH (18:45)
[2019-01-15] MEDS: POTASSIUM CHLORIDE 10 MEQ SR TABLET PO SCH (18:45)
--- NOTE | 2019-01-15 18:58 | IPNPDOC ---
Date Seen The patient was seen on 01/15/19. Progress Note Patient noted to be hypoxic requiring higher oxygen requirements as well as having several episodes of hemoptysis, minimal onto tissue. ABG 7.2/75/61, placed on Bipap. Has been on Lasix 60 IV BID. CXR with evidence of pulmonary edema. Events in the past 2 days: Patient underwent elective cardioversion. Cardioverted with HR in 50-60s and was hypotensive yesterday. Lasix was held due to hypotension. Digoxin was also discontinued. Patient reported coughing up some blood into the napkin, thinking that the oxygen was drying up her sinuses. She was removed from oxygen and has been doing fine but subsequently required replacement as well as increasing oxygen requirement. Attempt at CTA unsuccessful, although likelyhood of PE is unlikely given patient has been on Xarelto and was just stopped yesterday due to hemoptysis. Currently stable on Bipap in ICU. Mentating well and answer questions appropriately. Pulmonary also following along, appreciated assistance. VS, I&O, 24H, Fishbone Vital Signs/I&O Vital Signs Date Time Temp Pulse Resp B/P (MAP) Pulse Ox O2 Delivery O2 Flow Rate FiO2 01/15/19 16:00 97.0 60 20 140/62 (88) 82 4.0 I&O- Last 24 Hours up to 6 AM 01/15/19 06:00 Intake Total 1800 ml Output Total 800 ml Balance 1000 ml Laboratory Data 24H LABS Laboratory Tests 2 01/14/19 20:42: Bedside Glucose (Misc Panel) 120H 01/15/19 01:06: Bedside Glucose (Misc Panel) 93 01/15/19 04:29: Nucleated Red Blood Cells % (auto) 0.0, Anion Gap 5L, Glomerular Filtration Rate 37.9L, Blood Urea Nitrogen 25H, Creatinine 1.45H, Sodium Level 137, Potassium Level 4.7, Chloride Level 101, Carbon Dioxide Level 31, Calcium Level 8.2L 01/15/19 12:08: Bedside Glucose (Misc Panel) 48L 01/15/19 12:48: Bedside Glucose (Misc Panel) 81L 01/15/19 16:33: Clostridium difficile 027-NAP1-B1 PRESUMPTIVE NEGATIVE, Clostridium difficile Toxin (PCR) NEGATIVE 01/15/19 17:56: Bedside Glucose (Misc Panel) 127H 01/15/19 18:01: Blood Gas Bicarbonate Standard 23.8, Arterial Blood pH 7.203*L, Arterial Blood Partial Pressure CO2 75.4*H, Arterial Blood Partial Pressure O2 61.8L, Arterial Blood Total CO2 31.3H, Arterial Blood HCO3 29.0H, Arterial Blood Base Excess - 0.6, Arterial Blood Oxygen Saturation 84.4L CBC/BMP Laboratory Tests 01/15/19 04:29 Red Blood Count 2.95 L, Mean Corpuscular Volume 105.1 H, Mean Corpuscular Hemoglobin 32.5, Mean Corpuscular Hemoglobin Concent 31.0 L, Red Cell Distribution Width 17.4 H, Calcium Level 8.2 L Microbiology Microbiology 01/14/19 Blood Culture - Preliminary, Resulted No growth after 24 hours . All specim... 01/14/19 Blood Culture - Preliminary, Resulted No growth after 24 hours . All specim... CORINA RODRIGUEZ MD Jan 15, 2019 18:58
[2019-01-15] MEDS ORDERED: NOREPINEPHRINE BITARTRATE 8 MG in D5W 492 ML IV SCH (20:45)
[2019-01-15 21:15] LABS: ABG BASE EXCESS 1.9 (-2.0-2.0); ABG HCO3 26.8 MEQ/L (22.0-26.0); ABG O2 SATURATION 99.4 % (95.0-99.0); ABG PARTIAL PRESSURE CO2 43.5 mmHg (35.0-45.0); ABG PARTIAL PRESSURE O2 170.2 mmHg (75.0-100.0); ABG STANDARD HCO3 26.2 MEQ/L (22.0-26.0); ABG TOTAL CO2 28.2 MEQ/L (23.0-31.0); ABG pH (ARTERIAL) 7.408 UNITS (7.350-7.450)
[2019-01-15] MEDS: METOPROLOL TART 50 MG TAB PO SCH (22:00)
[2019-01-15] MEDS: RAMELTEON 8 MG TAB (ROZEREM) PO SCH (22:36)
[2019-01-16] VITALS (11 sets, daily range): BP systolic 93–131; BP diastolic 52–61
[2019-01-16] MEDS: LORazepam 1 MG TAB PO PRN ×2 (00:19→22:59)
[2019-01-16 05:21] LABS: HEMATOCRIT 27.5 % (36.0-47.0); HEMOGLOBIN 8.3 g/dl (12.0-15.5); MEAN CORPUSCULAR HEMOGLOBIN 31.4 pg (27.0-33.0); MEAN CORPUSCULAR HGB CONC 30.2 g/dl (32.0-36.5); MEAN CORPUSCULAR VOLUME 104.2 fl (80.0-96.0); PLATELET COUNT, AUTOMATED 130 10^3/uL (150-450); RED BLOOD COUNT 2.64 10^6/uL (4.00-5.40)
[2019-01-16] MEDS: HumaLOG INSULIN (NovoLOG) PER UNIT SC SCH ×5 (06:00→20:33)
[2019-01-16] MEDS: METOPROLOL TART 50 MG TAB PO SCH (06:00)
[2019-01-16 06:34] LABS: CALCIUM LEVEL 7.3 MG/DL (8.8-10.2); CREATININE FOR GFR 2.46 MG/DL (0.55-1.30); GLOMERULAR FILTRATION RATE 20.6 (>39); POTASSIUM SERUM 3.8 MEQ/L (3.5-5.1)
[2019-01-16] MEDS: LEVOTHYROXINE 75MCG TABLET (0.075MG) PO SCH (06:35)
[2019-01-16] MEDS: SODIUM CHLORIDE 0.9% INJ 10 ML SYR IV SCH ×2 (06:36→17:01)
--- NOTE | 2019-01-16 07:55 | REP ---
Portable chest, 06:51 p.m., single AP view with the patient sitting: Comparison is 01/14/2019. The the patient is rotated. There is an infiltrate throughout the entire left lung that has increased in density. There is tenting of the right hemidiaphragm compatible with pleural effusion, unchanged. The the majority of the right hemithorax is obscured by patient rotation. Cardiac size is mildly enlarged, unchanged. There is a left upper extremity PICC line terminating in the superior vena cava, unchanged. Impression: Increased density in the large left lung infiltrate. Electronically Signed by Constantine Spann MD 01/16/2019 07:46 A
[2019-01-16] MEDS: IPRATROPIUM 0.5MG/ALBUTEROL 2.5MG INH SOL UD 3ML (DUONEB)(J7620) NEB SCH ×2 (08:30→16:00)
--- NOTE | 2019-01-16 08:32 | REP ---
Portable chest, 08:13 a.m., single AP view with the patient upright: Comparisons are 01/15/2019 and 01/14/2019. There is a large left lung infiltrate, not significantly changed from 01/14/2019 where the patient was not rotated. There is tenting of the right hemidiaphragm, unchanged, compatible with pleural adhesion. . This is unchanged. Cardiac size is upper normal. The left upper extremity PICC line is unchanged. Impression: No interval change. Electronically Signed by Constantine Spann MD 01/16/2019 08:23 A
[2019-01-16] MEDS: DOCUSATE SODIUM 100 MG CAP PO SCH (09:00)
[2019-01-16 09:31] LABS: INR 3.47; PROTHROMBIN TIME 34.9 SECONDS (11.8-14.0)
[2019-01-16] MEDS: FUROSEMIDE 100 MG/10 ML VIAL (J1940) IV SCH ×2 (09:34→17:01)
[2019-01-16] MEDS: BISOPROLOL FUMARATE 10 MG TAB PO SCH ×2 (09:35→20:33)
[2019-01-16] MEDS: CAPTOpril 12.5 MG TAB PO SCH (09:35)
[2019-01-16] MEDS: VITAMIN D 1,000 INTERNATIONAL UNITS TABLET PO SCH (09:35)
[2019-01-16] MEDS: POTASSIUM CHLORIDE 10 MEQ SR TABLET PO SCH (09:36)
[2019-01-16] MEDS: MULTIVITAMINS/MINERALS THERAP 1 TAB PO SCH (09:36)
[2019-01-16] MEDS: PANTOPRAZOLE 40MG TAB (PROTONIX) PO SCH (09:36)
[2019-01-16] MEDS: FLECAINIDE 50MG TABLET PO SCH ×2 (09:40→20:33)
--- NOTE | 2019-01-16 10:01 | REP ---
CT of the chest without IV contrast: Comparisons are the chest CT dated 07/07/2018 and recent plain film studies of the chest. The patient reportedly status post right upper lobectomy. There are moderate bilateral pleural effusions. The left pleural effusion is slightly greater. There are multifocal irregular opacities throughout the left upper and lower lobes. By CT. These are nonspecific and could represent multifocal confluent infiltrates or could represent multifocal masses. In addition, there is a diffuse ground-glass pattern throughout the left upper upper lobe and lingula, compatible with infiltrate. There is an enlarged anterior mediastinal node measuring up to 9 mm short axis. This is unchanged from the comparison CT. There is a borderline enlarged mediastinal azygos node measuring 8 mm short axis. This is unchanged. The study is insensitive for hilar lymph node enlargement in the absence of IV contrast, however, the amandeep have not significantly changed in size from the prior CT. There is no axillary lymph node enlargement. The unenhanced thoracic aorta is unremarkable. Cardiac size is enlarged, unchanged. There is a pacemaker, unchanged. There is no pericardial effusion. Impression: Status post right upper lobectomy. Multifocal densities throughout the left upper and lower lobes, nonspecific, multifocal infiltrates versus masses. Additionally, there is a ground-glass pattern throughout the left upper lobe and lingula compatible with infiltrate. There are bilateral moderate pleural effusions as described. There are borderline enlarged mediastinal nodes, unchanged from the prior study. There is chronic tenting of the right hemidiaphragm dome, unchanged from the comparison CT, compatible with pleural adhesion. Cardiomegaly and pacemaker are unchanged. Electronically Signed by Constantine Spann MD 01/16/2019 09:52 A
--- NOTE | 2019-01-16 10:13 | REP ---
CT of the abdomen and pelvis without IV or bowel contrast: There are no comparison abdomen/pelvis CT studies. There are bilateral pleural effusions as described in the chest CT. There is a focal 15 mm hypodensity inferiorly in the right lobe of the liver on image 43, unchanged from the comparison CT of the chest dated 07/07/2018, likely an hepatic cyst. Additionally, there is a subcapsular hepatic cyst inferomedially in the right lobe of the liver adjacent to the gallbladder measuring up to 3.0 cm in diameter. The unenhanced hepatic parenchyma is otherwise homogeneous. The gallbladder is unremarkable. The pancreas and spleen are normal size and unremarkable. There is a tiny accessory spleen medial to the inferior pole of the spleen as an anatomic variant. The adrenals are unremarkable. The unenhanced kidneys are unremarkable. The abdominal aorta is unremarkable. There is no periaortic adenopathy or mass. There is no ascites. The mesentery is unremarkable. Pelvis: The uterus and adnexa are unremarkable. There is a Lopez catheter in the bladder and the bladder is collapsed and cannot be further evaluated. No pelvic adenopathy is identified. The appendix and terminal ileum are unremarkable. Impression: Hepatic cysts as described. There is no adenopathy or ascites. There are bilateral pleural effusions. Electronically Signed by Constantine Spann MD 01/16/2019 10:04 A
--- NOTE | 2019-01-16 10:13 | CCN ---
DATE OF SERVICE: 01/16/2019 The patient had a large blood clot from the vaginal canal this morning. She is much better compensated however with the diuresis. She has more renal impairment. It is quite a difficult balance. She has persistent abnormalities on her chest x-ray this morning. Therefore, a chest CT is been obtained without contrast. The patient has not had any uterine bleeding before. She has no hemoptysis now. She states she cannot tell if her breathing because she is still on BiPAP. History is difficult because of the BiPAP, however. She states she has no rashes except for on her bottom because she has been having significant diarrhea. She also states she has had no uveitis symptoms. She has had no fevers or chills. She has no pain at this point in time. PHYSICAL EXAMINATION: Temperature 97.9, pulse is 52, respiratory rate is 16, blood pressure is 118/56 with a mean arterial pressure 76, oxygen saturation is 100% now on 0.60 FiO2, where yesterday she was up to 100% at similar saturation levels. GENERAL: The patient is awake, alert and oriented asking appropriate questions. There is no evidence of increased dyspnea while on bilevel noninvasive therapy. HEENT: Sclerae clear and anicteric. Pupils equal, react to light. Mucous membranes are moist. Tongue is midline. NECK: Supple. No tracheal deviation or mass. PULMONARY: Decreased breath sounds throughout with few scattered rales, I do not auscultate any rhonchi. There is no wheeze. CARDIAC: The patient has a soft systolic murmur with a fairly slow heart rate. S1-S2 are present without any gallop. PMI is difficult to palpate due to body habitus. There is no systemic edema. ABDOMEN: Obese, soft, nontender, nondistended. No hepatosplenomegaly. No masses or hernia. No pain to palpation. No rebound or guarding and there is normal active bowel sounds. EXTREMITIES: No cyanosis, clubbing or edema. SKIN: There is a fungal rash underneath both breasts. No other rashes. No cyanosis. No bruising. MUSCULOSKELETAL: Fairly well-developed without evidence of recent fracture or joint effusion. NEUROLOGIC: No unilateral weakness or tremor. Patient is able to move all extremities. LABORATORY EVALUATION: Shows a white blood cell count of 7.0, hemoglobin of 8.3 and a platelet count of 130. Chemistry shows sodium 134, potassium 3.8, chloride of 96, bicarb of 28, BUN of 26, creatinine of 2.46 with a glucose of 201. CRP when measured on the with high at 8.9, calcium measured at 7.3. Arterial blood gas after being on bilevel for a few hours and diuresis showed normalization with a pH of 7.41, pCO2 of 44, PaO2 170. Chest x-ray from yesterday shows interstitial edema. Today's film shows some slight improvement, but still has diffuse increased interstitial markings. PICC line is in place with the tip of the PICC line at the superior vena cava (SVC). IMPRESSION: 1. Hypoxic hypercarbic respiratory failure of questionable etiology, thought to be pulmonary edema; however, she does not have systemic edema. It does appear that she may upon into flash pulmonary edema; however, there were no significant ischemic changes on EKG. Remaining in the differential is alveolar hemorrhage. Therefore a CT scan of the chest will be performed and I have ordered an ANCA panel. It would be unusual for this type of disease to develop within the past few days while in the hospital. She may have had alveolar hemorrhage induced secondary to introduction of anticoagulation. I am ordering PT/INR. She also has vaginal bleeding. She may have a bleeding disorder. It is possible that she may also have a uterine pathology. The patient is therefore ordered to have abdominal imaging by her primary hospitalist. The patient remains critically ill due to her respiratory status. Critical care time was 43 minutes, this excludes all procedures.
--- NOTE | 2019-01-16 10:31 | ECGEPIP ---
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
[2019-01-16] MEDS: ACETAMINOPHEN TAB 650MG DOSE (2X325MG) PO PRN (10:37)
--- NOTE | 2019-01-16 11:09 | IPNPDOC ---
Date Seen The patient was seen on 01/16/19. Progress Note SUBJECTIVE: Patient was noted to be resp distress yesterday evening, ABG w/ evidence of hypoxic and hypercapneic resp insuficiency. Was placed on Bipap and transferred to ICU. Patient off Bipap this AM, stating that she feels better but has had a large vaginal clot as well as blood oozing vaginally. Xarelto is held again. Saturation and clinically improved. Went for CT Chest and Abdomen this AM. OBJECTIVE PHYSICAL EXAMINATION: VITAL SIGNS: Please see below. General: No acute distress, Alert Eyes: Normal sclera, EOMI, JESS HENT: Atraumatic, neck supple, moist mucous membranes Cardiovascular: Normal rate. Pulmonary: Clear to auscultation b/l, no wheezing GI: Soft, nontender, nondistended Skin: Warm and dry Neuro: CN grossly intact. No focal deficits. Strengths equal b/l. Psych: oriented x 3 LABORATORY DATA, IMAGING STUDIES, MICROBIOLOGY: Please see below. DVT prophylaxis ordered?: On Xarelto CT Chest- Impression: Status post right upper lobectomy. Multifocal densities throughout the left upper and lower lobes, nonspecific, multifocal infiltrates versus masses. Additionally, there is a ground-glass pattern throughout the left upper lobe and lingula compatible with infiltrate. There are bilateral moderate pleural effusions as described. There are borderline enlarged mediastinal nodes, unchanged from the prior study. There is chronic tenting of the right hemidiaphragm dome, unchanged from the comparison CT, compatible with pleural adhesion. Cardiomegaly and pacemaker are unchanged. CT Abdomen/Pelvis- Impression: Hepatic cysts as described. There is no adenopathy or ascites. There are bilateral pleural effusions. 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 1. Septic shock - 2/2 Staph aureus bacteremia. - Resolved. Post pressor support. - ID following. Planned for IV Cefazolin via PICC until January 18. - Nursing and Rehab vs. ARU vs home - No evidence of vegetation on ECHO. - Repeat blood cultures NTD. - To repeat blood cultures 01/22/19. - f/u with Dr. Zapien 7-10 days post discharge. 2. UTI s/p treatment 3. SJ on CKD resolved. ACEI restarted. 4. HFpEF - Wean O2 if able. Daily weights. Fluid overload evident on CXR, aggressive diurese at this time. 5. DM- Levemir and ISS. Hold Januvia and Farxiga. 6. Afib - s/p elective cardioversion. - c/w Xarelto and home dose Bisoprolol 10 mg BID, and Flecainide 100 BID. - Bradycardic. Digoxin d/c. 7. Hypothyroid - c/w synthroid home dose. 8. MM- hold Revlilmid: last dose 12/30/18. 9. Hemoptysis w/ hypoxic and hypercapnic resp failure - flash pulm edema vs. vasculitis vs. PNA vs. malignancy - Patient denies any prior known pulmonary disease including Asthma/COPD. - Has had history of lung ca s/p R upper lobe resection. - Multiple densities in L. lobe, particularly LIVE with lymphadenopathy. Concern for PNA vs. malignancies. - Given prior history of lung malignancies and these findings, it is possible these could be a manifestation of a lung malignancy. - No strong clinical evidence of PNA but cannot rule out and is suspected based on imaging. - Patient already on Cefazolin. Considering adding Levaquin. Will wait for workup and discuss with ID. - f/u ANCA, sputum, and urine legionella. 10. Diarrhea - c. diff negative. Obtain GI panel. DVT ppx: SCDs. Xarelto held at this time due to vaginal bleed and recent hx of hemoptysis VS, I&O, 24H, Fishbone Vital Signs/I&O Vital Signs Date Time Temp Pulse Resp B/P (MAP) Pulse Ox O2 Delivery O2 Flow Rate FiO2 01/16/19 10:00 63 20 122/57 (78) 90 15.0 50 01/16/19 08:00 97.0 I&O- Last 24 Hours up to 6 AM 01/16/19 06:00 Intake Total 710 ml Output Total 1325 ml Balance -615 ml Laboratory Data 24H LABS Laboratory Tests 2 01/15/19 12:08: Bedside Glucose (Misc Panel) 48L 01/15/19 12:48: Bedside Glucose (Misc Panel) 81L 01/15/19 16:33: Clostridium difficile 027-NAP1-B1 PRESUMPTIVE NEGATIVE, Clostridium difficile Toxin (PCR) NEGATIVE 01/15/19 17:56: Bedside Glucose (Misc Panel) 127H 01/15/19 18:01: Blood Gas Bicarbonate Standard 23.8, Arterial Blood pH 7.203*L, Arterial Blood Partial Pressure CO2 75.4*H, Arterial Blood Partial Pressure O2 61.8L, Arterial Blood Total CO2 31.3H, Arterial Blood HCO3 29.0H, Arterial Blood Base Excess - 0.6, Arterial Blood Oxygen Saturation 84.4L 01/15/19 20:16: Bedside Glucose (Misc Panel) 105 01/15/19 21:07: Blood Gas Bicarbonate Standard 26.2H, Arterial Blood pH 7.408, Arterial Blood Partial Pressure CO2 43.5, Arterial Blood Partial Pressure O2 170.2H, Arterial Blood Total CO2 28.2, Arterial Blood HCO3 26.8H, Arterial Blood Base Excess 1.9, Arterial Blood Oxygen Saturation 99.4H 01/16/19 00:10: Bedside Glucose (Misc Panel) 77L 01/16/19 04:55: Nucleated Red Blood Cells % (auto) 0.0, Anion Gap 10, Glomerular Filtration Rate 20.6L, Blood Urea Nitrogen 26H, Creatinine 2.46#H, Sodium Level 134L, Potassium Level 3.8, Chloride Level 96L, Carbon Dioxide Level 28, Calcium Level 7.3L 01/16/19 06:39: Bedside Glucose (Misc Panel) 76L 01/16/19 09:08: Prothrombin Time 34.9H, Prothromb Time International Ratio 3.47 CBC/BMP Laboratory Tests 01/16/19 04:55 Red Blood Count 2.64 L, Mean Corpuscular Volume 104.2 H, Mean Corpuscular Hemoglobin 31.4, Mean Corpuscular Hemoglobin Concent 30.2 L, Red Cell Distribution Width 17.2 H, Calcium Level 7.3 L Microbiology Microbiology 01/14/19 Blood Culture - Preliminary, Resulted No Growth after 48 hours. All Specime... 01/14/19 Blood Culture - Preliminary, Resulted No Growth after 48 hours. All Specime... 01/16/19 Gastrointestinal Tract Panel (PCR), Received Pending CORINA RODRIGUEZ MD Jan 16, 2019 11:09
[2019-01-16] MEDS: diphenhydrAMINE 25 MG CAP PO PRN (15:12)
[2019-01-16] MEDS: ONDANSETRON 4MG/2ML VIAL (J2405) IV PRN ×2 (17:02→22:59)
[2019-01-16] MEDS: RAMELTEON 8 MG TAB (ROZEREM) PO SCH (20:29)
[2019-01-16] MEDS: guaiFENesin SYRUP 200 MG/10 ML UDC PO PRN (20:38)
--- NOTE | 2019-01-16 23:24 | CR ---
DATE OF CONSULTATION: 01/16/2019 REQUESTING PHYSICIAN: Dr. Violeta Dorantes REASON FOR CONSULTATION: Nonoliguric acute kidney injury. HISTORY OF PRESENT ILLNESS: Javier Urbina is a 73-year-old female previously unknown to me with a past medical history of hypertension, paroxysmal atrial fibrillation, diastolic congestive heart failure, dyslipidemia, insulin dependent diabetes, history of lung cancer status post right upper lobe lobectomy, multiple myeloma, osteoporosis and other comorbid conditions mentioned below. She was admitted to [facility] on January 01 after presenting to the emergency department with several days of malaise, fevers and chills. She was found to be in septic shock and was admitted to the intensive care unit (ICU) and started on pressors and broad spectrum antibiotics. Blood cultures subsequently grew Staphylococcus aureus and her Rbcyxy-X-Ggui was discontinued. She had a transesophageal echocardiogram (ANETTE) that was negative for endocarditis. Early on in the admission she had an acute kidney injury with creatinine of 1.9. Her MENDEZ inhibitor was initially held but then resumed during the admission. I also note she underwent elective cardioversion for her atrial fibrillation (AFib). The patient had hypotension overnight on January 13 and her creatinine did start to rise from January 14 onward and a nephrology consultation was requested for worsening renal function for this patient. Similarly, over the past several days she has had worsening hypoxemia and has been requiring escalating amounts of supplemental oxygen and she is now in the intensive care unit (ICU) and is followed by the pulmonary team. PAST MEDICAL HISTORY: 1. Hypertension and hypertensive heart disease. 2. Dyslipidemia. 3. Paroxysmal atrial fibrillation status post ablation in the past. 4. Diastolic congestive heart failure. 5. Insulin dependent diabetes. 6. 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 7. History of lung cancer. 8. Multiple myeloma under active treatment. 9. Osteoporosis. 10. Chronic kidney disease (CKD) stage III. PAST SURGICAL HISTORY: 1. Tonsillectomy. 2. Adenoidectomy. 3. Endoscopy. 4. Colonoscopy. 5. Parathyroidectomy. 6. Dental surgery. 7. Bronchoscopy. 8. Bronchoscopy right upper lobectomy. 9. Unjvth-A-Gqhk implantation and removal. 10. Cataract removal. ALLERGIES: PENICILLIN, CODEINE, PRADAXA, LATEX, SHELLFISH. FAMILY HISTORY: Significant for colonic polyps in her father, mother and some siblings. 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 She is an ex-smoker. She is . There is no drug or alcohol use. HOME MEDICATIONS: Home medications are reviewed and include: - captopril - bisoprolol - vitamin D3 - Farxiga - Lasix - insulin - Revlimid - Synthroid - Ativan - potassium - Xarelto - sitagliptin REVIEW OF SYSTEMS: CONSTITUTIONAL: She denies fevers or chills. She reports generalized weakness and deconditioning. She is status post recent septic shock. HEENT: Eyes: She denies any visual changes or tearing. She wears glasses. ENT: She denies any new tinnitus or epistaxis or rhinorrhea. RESPIRATORY: She has been requiring increasing amounts of supplemental oxygen. She reports dyspnea with mild exertion but denies shortness of breath at rest. CARDIAC: She has a history of diastolic congestive heart failure. She had a recent transesophageal echocardiogram (ANETTE) on this admission. She denies chest pain or leg edema. GASTROINTESTINAL (GI): She denies vomiting. She reports occasional diarrhea and she reports so-so oral intake. GENITOURINARY (): She reports recent bleeding from the vagina. She denies oliguria. MUSCULOSKELETAL: She reports diffuse chronic joint pains and osteoporosis. She denies any new myalgias or arthralgias. SKIN: She has a history of psoriasis. ENDOCRINE: She reports a history of insulin dependent diabetes. HEMATOLOGY ONCOLOGY: She has a history of multiple myeloma and lung cancer and chemotherapy. PSYCHIATRIC: She reports a history of anxiety. NEUROLOGIC: She denies seizures or syncope. The remainder review of systems is negative or as per history of present illness. PHYSICAL EXAMINATION: VITAL SIGNS: Temperature 96.6, pulse 57, respiratory rate 18, blood pressure 131/61, saturating 88%-94% on 4-5 liters nasal cannula. Intake yesterday was 840. Urine output yesterday was 1100, net negative 300. Weight in the bed scale today is 82.5 kg. GENERAL: The patient is awake, alert and oriented, interactive and conversational. She looks fatigued but is in no acute respiratory distress. Pupils are round and reactive to light. Mucous membranes are moist. Neck is supple. Jugular veins are not elevated. CARDIAC: There is a systolic murmur. There is mild bradycardia. She has no edema in the peripheries nor in the dependent area. LUNGS: Breath sounds are diminished. There is no tachypnea nor accessory muscle use. She is seen on supplemental oxygen. There is no dyspnea with speech. ABDOMEN: The abdomen is obese and soft. There are bowel sounds. GENITOURINARY (): Shows Lopez catheter with urine. EXTREMITIES: The extremities are negative for cyanosis or edema. NEUROLOGIC: She is oriented x3, interactive and follows commands without delay. LABORATORY DATA: Sodium 134, potassium 3.8, bicarbonate 28, BUN 26, creatinine 2.4, hemoglobin 8.3, platelet 130, INR 3.4. Antineutrophil cytoplasmic antibodies (ANCA) panel and anti-glomerular basement membrane (anti-GBM) is pending. Urine shows 2+ blood. CT CHEST: January 16 - Multifocal densities throughout the left upper and lower lobe, bilateral moderate pleural effusions. CT ABDOMEN: January 16 - No ascites. Bladder is collapsed. There are bilateral pleural effusions. INPATIENT MEDICATIONS: - cephazolin 2 grams intravenous (IV) every 8 hourly - Tylenol as needed - bisoprolol 10 mg by mouth twice a day - captopril 12.5 mg by mouth twice a day - flecainide 100 mg by mouth twice a day - Lasix 60 mg IV twice a day - insulin - Synthroid 75 mcg by mouth daily - lorazepam as needed - multivitamin by mouth daily - Zofran as needed - Protonix 40 mg by mouth daily - potassium 40 mEq by mouth daily - vitamin D 2000 units by mouth daily PROBLEMS: 1. Nonoliguric acute kidney injury. The patient initially had acute kidney injury on admission with creatinine of 1.9 on January 01 that was likely due to sepsis and septic shock. She did have recovery of renal function and creatinine was around 1 for about a week and then on January 14 she had documented hypotension and her renal function is noted to have deteriorated after that. I am holding her captopril in view of the acute kidney injury. She continues with the Lopez catheter for urine output monitoring as her renal function has worsened over the past 3 days. Similarly, she has had worsening hypoxemia and increasing supplemental oxygen requirements. A CT of the chest was reviewed and showed multifocal densities and also bilateral moderate pleural effusions. I do not see much in the way of systemic fluid overload. However in view of increasing oxygen requirements and the pleural effusions we will continue the patient on the current dose of diuretic. She does seem to be responding nicely and her urine output is adequate. I note antineutrophil cytoplasmic antibodies (ANCA) and anti-glomerular basement membrane (anti-GBM) studies are pending. Her urinalysis on admission showed only blood and no protein. I am less suspicious for acute glomerulonephritis as the culprit. It is more likely that her acute kidney injury is related to recent sepsis, hypotension with the concomitant use of diuretic and MENDEZ inhibitor. 2. Hypertension. Blood pressures are well-controlled and actually she has had several soft readings over the past few days. In view of tightly controlled hypertension and acute kidney injury and need for diuresis, I am discontinuing her off of captopril. 3. Methicillin-sensitive Staphylococcus aureus septic shock status post removal of Udocfa-L-Glrt transesophageal echocardiogram (ANETTE) noted. The patient presently on high dose of cephazolin 2 grams every eight hourly. Given that the GFR is 20 mL per minute I am going to go ahead and reduce the dose of cephazolin and we will discuss with infectious diseases tomorrow. 4. Hypoxic respiratory failure. CT chest is noted. She does not seem to have a congestive heart failure (CHF) pattern. There is no systemic fluid overload on exam; however, she does have bilateral moderate pleural effusions. We will continue her on loop diuretics. Pulmonology is following. She is requiring escalating supplemental oxygen. Her INR is supratherapeutic. Her anticoagulation is held. Her vasculitic and anti-GBM antibody panels are also pending. She also has a history of malignancy of the lung which further complicate the picture. Thank you for involving me in the care of Ms. Urbina. I will be happy to follow her along with you.
[2019-01-17] VITALS (14 sets, daily range): BP systolic 108–136; BP diastolic 55–75
--- NOTE | 2019-01-17 02:04 | CCN ---
DATE OF SERVICE: 01/15/2019 I was called urgently by the covering resident for this 73-year-old female who was in acute respiratory failure. Apparently had been having some minimal amounts of hemoptysis and increased shortness breath over the past couple days. She has a known history of hypertensive heart disease and diastolic dysfunction. Was actually admitted for sepsis; however, after being treated for her hypertensive heart disease, had some elevation in BUN and creatinine. It was thought that she may be on the dry side and, therefore, appropriately, her diuretics were held. She had increased shortness of breath. Arterial blood gas was obtained showing hypercarbic respiratory failure with a pH of 7.20, pCO2 of 75, pO2 of 62. She had been off and on anticoagulation for atrial fibrillation. Currently, she feels less shortness of breath. History is inhibited by the bilevel positive airway pressure (BiPAP) machine. She is minimally tachypneic on my arrival. Temperature is 97.0, pulse of 63, respiratory rate is 22, blood pressure is 112/59 with a mean arterial pressure of 76, oxygen saturation 96% on 0.80, initially 82% on 4 liters. That was just at 4 p.m. GENERAL: Awake, alert, oriented, able to try to converse through the mask, but quite dyspneic. HEENT: Sclerae clear and anicteric. Pupils equally reactive to light. Mucous membranes are moist without lesions. Neck is supple. No tracheal deviation. PULMONARY: Scattered rales without significant rhonchi. There is no expiratory wheeze. There is a soft systolic ejection murmur. Patient is in sinus bradycardia. Point of maximal impulse (PMI) is difficult to palpate due to body habitus. Surprisingly, there is no significant peripheral edema. ABDOMEN: Is soft, obese, nontender, nondistended. No discernible hepatosplenomegaly. No masses or hernia. EXTREMITIES: No cyanosis or clubbing. SKIN: No rash, jaundice, or bruising. MUSCULOSKELETAL: Normal muscle tone. No evidence of joint effusion. NEUROLOGICAL: No unilateral weakness or tremor. LABORATORY EVALUATION: Shows a white blood cell count of 8.6, hemoglobin 9.6, hematocrit of 31, platelet count of 144. Sodium is 137, potassium 4.7, chloride is 101, bicarbonate of 31 with a BUN of 25, creatinine of 1.45. Transesophageal echocardiogram was reviewed from 01/04/2019. Showed no evidence of vegetations. Showed some mild atherosclerotic aortic valve and a normal left ventricle (LV) and right ventricle (RV) function. IMPRESSION: 1. Hypercarbic hypoxic respiratory failure, most likely from pulmonary edema. Chest x-ray is most consistent with pulmonary edema, now showing vascular congestion much different from priors. Diffuse alveolar hemorrhage remains on the differential, but it would be a very strange presentation to all of a sudden have alveolar hemorrhage without a provoking factor. Although it is not unreasonable to consider pulmonary embolism, there would likely be such interstitial infiltrate if this were the case. Would recommend full-dose anticoagulation anyway, even given the small history of hemoptysis in the face of a history of atrial fibrillation. Place patient on BiPAP. Will continue to monitor. Recheck arterial blood gas in 2 hours. 2. Atrial fibrillation, currently sinus chris. No evidence of vegetations from recent sepsis. Currently, heart rate is very well controlled. 3. Hemoptysis. Appears to be mild, more blood tinged sputum than true hemoptysis. Would, therefore, consider reinitiating anticoagulation, especially if there is any concern for the possibility of pulmonary embolism. 4. Hypertensive heart disease. Continue on antihypertensive with close monitoring of blood pressure. CRITICAL CARE TIME: Was 1 hour. This excludes all procedures.
[2019-01-17] MEDS: SODIUM CHLORIDE 0.9% INJ 10 ML SYR IV SCH ×2 (05:25→18:01)
[2019-01-17] MEDS: PERCOCET 5MG/325MG TAB PO PRN (05:25)
[2019-01-17] MEDS: LEVOTHYROXINE 75MCG TABLET (0.075MG) PO SCH (05:25)
[2019-01-17 05:47] LABS: HEMATOCRIT 27.6 % (36.0-47.0); HEMOGLOBIN 8.5 g/dl (12.0-15.5); MEAN CORPUSCULAR HEMOGLOBIN 31.3 pg (27.0-33.0); MEAN CORPUSCULAR HGB CONC 30.8 g/dl (32.0-36.5); MEAN CORPUSCULAR VOLUME 101.5 fl (80.0-96.0); PLATELET COUNT, AUTOMATED 148 10^3/uL (150-450); RED BLOOD COUNT 2.72 10^6/uL (4.00-5.40)
[2019-01-17 06:39] LABS: CALCIUM LEVEL 7.8 MG/DL (8.8-10.2); CREATININE FOR GFR 1.36 MG/DL (0.55-1.30); GLOMERULAR FILTRATION RATE 40.8 (>39); POTASSIUM SERUM 3.9 MEQ/L (3.5-5.1)
[2019-01-17] MEDS: HumaLOG INSULIN (NovoLOG) PER UNIT SC SCH ×4 (07:30→20:56)
[2019-01-17] MEDS: BISOPROLOL FUMARATE 10 MG TAB PO SCH (09:00)
[2019-01-17] MEDS: MULTIVITAMINS/MINERALS THERAP 1 TAB PO SCH (09:10)
[2019-01-17] MEDS: POTASSIUM CHLORIDE 10 MEQ SR TABLET PO SCH (09:11)
[2019-01-17] MEDS: PANTOPRAZOLE 40MG TAB (PROTONIX) PO SCH (09:11)
[2019-01-17] MEDS: VITAMIN D 1,000 INTERNATIONAL UNITS TABLET PO SCH (09:11)
[2019-01-17] MEDS: FLECAINIDE 50MG TABLET PO SCH (09:15)
[2019-01-17 09:42] LABS: INR 2.36; PROTHROMBIN TIME 25.6 SECONDS (11.8-14.0)
[2019-01-17] MEDS: FUROSEMIDE 100 MG/10 ML VIAL (J1940) IV SCH (09:53)
[2019-01-17] MEDS ORDERED: LOPERAMIDE 2 MG CAP PO PRN (10:15)
--- NOTE | 2019-01-17 10:47 | REP ---
Clinical: Hypoxia. Impression: 01/16/2019. Findings: Left-sided PICC line with tip in the SVC remains stable. Mediastinum and cardiac silhouette stable. Chronic interstitial changes with superimposed scattered interstitial and alveolar infiltrates as well as pleural effusion again suggested and essentially unchanged. Skeletal structures stable/intact. Impression: Suspected bilateral alveolar and interstitial infiltrates along with pleural effusion. Findings remain relatively stable compared to 01/16/2019. Electronically Signed by Bert Watts MD 01/17/2019 10:38 A
--- NOTE | 2019-01-17 11:21 | CCN ---
DATE: 01/17/2019 Ms. Urbina is seen in the intensive care unit (ICU). She is progressive care unit (PCU) status. Overall she notes that she is feeling better. She is showing some clinical improvement overall. She is afebrile. Her white blood cell count is within normal limits at 7. She does still remained hypoxic but less so. She is no longer needing BiPAP therapy. The patient is had no further significant bleeding. She notes still some sputum production and states that she does have a few flecks of blood in there but she feels that has improved. The patient denies fevers or chills. She denies any pain. PHYSICAL EXAMINATION: VITALS: Pulse 62, blood pressure 136/68, respiratory rate 18, O2 saturation is 91% on 2 liters. Temperature is 97.2. GENERAL: The patient is alert, oriented times three. Mood affect appropriate. She speaks in complete sentences. HEENT: Head is normocephalic, atraumatic. Pupils equal, reactive to light. Mucous membranes are moist. Tongue is midline. NECK: Neck is supple. No cervical lymphadenopathy. No jugular venous distention (JVD). Trachea is midline. PULMONARY: Breath sounds are clear to auscultation bilaterally. No wheezes, rales, rhonchi or crackles. No accessory muscle use. HEART: Regular rate and rhythm. ABDOMEN: Positive bowel sounds, soft, nontender. No obvious hepatosplenomegaly. No rebound or guarding. EXTREMITIES: No clubbing, cyanosis or edema. NEURO: Nonfocal. The patient is able to move all extremities. LABS: WBC 7.0, hemoglobin 8.5, hematocrit 27.6, platelets 148. Sodium 139, potassium 3.9, chloride 103, carbon dioxide 29, BUN 22, creatinine 1.36, glucose 66, calcium 7.8. PT 25.6, INR 2.36, C-ANCA and P-ANCA are currently pending. Beta D glucan pending. Legionella and Streptococcus pneumonia testing is pending. Chest x-ray done today shows overall improvement in infiltrates. There still is a left upper lobe nodule. ASSESSMENT/PLAN: 1. Hypoxia: The patient is hypoxic and requiring supplemental oxygen. However, this is being titrated down and she is currently on 2 liters and saturating at 91%. Overall she has clinical improvement. She may have had flash pulmonary edema versus alveolar hemorrhage. Labs for C-ANCA and P-ANCA are pending. Labs for beta D glucan is pending. Blood cultures collected yesterday are pending. Sputum culture collected yesterday is pending. Blood cultures from 01/14/2019 showed no growth after 72 hours times two. The patient does have history of septic shock secondary to Staphylococcus aureus bacteremia. She currently is on cephazolin 2 grams IV every 12 hours[address] 2[address] Ab[address] chest CT: The patient had a chest CT that does show bilateral pleural effusion as well as left upper lobe and right upper lobe opacities. There is a left upper lobe nodule. Question septic emboli. As noted above, additional labs are pending. Chest x-ray does show some overall improvement today. As noted, the patient is on cephazolin. Continue to monitor.
[2019-01-17] MEDS: IPRATROPIUM 0.5MG/ALBUTEROL 2.5MG INH SOL UD 3ML (DUONEB)(J7620) NEB SCH ×3 (11:26→15:55)
--- NOTE | 2019-01-17 12:37 | IPNPDOC ---
Date Seen The patient was seen on 01/17/19. Progress Note SUBJECTIVE: Patient clinically improved significantly from over the weekend. O2 is being weaned down, was at 3L saturation well this AM. Breathing is better. Did still have some vaginal spotting yesterday but has not had since then, and no debbie blood noted in sputum anymore. Diarrhea also improving. OBJECTIVE PHYSICAL EXAMINATION: VITAL SIGNS: Please see below. General: No acute distress, Alert Eyes: Normal sclera, EOMI, JESS HENT: Atraumatic, neck supple, moist mucous membranes Cardiovascular: Bradycardic. Pulmonary: Clear to auscultation b/l, no wheezing GI: Soft, nontender, nondistended Skin: Warm and dry Neuro: CN grossly intact. No focal deficits. Strengths equal b/l. Psych: oriented x 3 LABORATORY DATA, IMAGING STUDIES, MICROBIOLOGY: Please see below. DVT prophylaxis ordered?: On Xarelto CT Chest- Impression: Status post right upper lobectomy. Multifocal densities throughout the left upper and lower lobes, nonspecific, multifocal infiltrates versus masses. Additionally, there is a ground-glass pattern throughout the left upper lobe and lingula compatible with infiltrate. There are bilateral moderate pleural effusions as described. There are borderline enlarged mediastinal nodes, unchanged from the prior study. There is chronic tenting of the right hemidiaphragm dome, unchanged from the comparison CT, compatible with pleural adhesion. Cardiomegaly and pacemaker are unchanged. CT Abdomen/Pelvis- Impression: Hepatic cysts as described. There is no adenopathy or ascites. There are bilateral pleural effusions. 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 1. Septic shock - 2/2 Staph aureus bacteremia. - Resolved. Post pressor support. - ID following. Planned for IV Cefazolin via PICC until January 18, likely will be done as inpatient. - Nursing and Rehab vs. ARU vs home - No evidence of vegetation on ECHO. - Repeat blood cultures NTD. - To repeat blood cultures 01/22/19. - f/u with Dr. Zapien 7-10 days post discharge. 2. UTI s/p treatment 3. SJ on CKD - ACEI held at this time due to decline in kidney function. - Nephrology following. 4. HFpEF - Wean O2. - Daily weights. - Fluid overload evident on CXR, aggressive diurese at this time. 5. DM- Levemir and ISS. Hold Januvia and Farxiga. 6. Afib - s/p elective cardioversion. - c/w Xarelto and home dose Bisoprolol 10 mg BID, and Flecainide 100 BID. - Bradycardic. Digoxin d/c. 7. Hypothyroid - c/w synthroid home dose. 8. MM- hold Revlilmid: last dose 12/30/18. 9. Hemoptysis w/ hypoxic and hypercapnic resp failure - flash pulm edema vs. vasculitis vs. PNA vs. malignancy - Patient denies any prior known pulmonary disease including Asthma/COPD. - Has had history of lung ca s/p R upper lobe resection. - Multiple densities in L. lobe, particularly LIVE with lymphadenopathy. Concern for PNA vs. malignancies. - No strong clinical evidence of PNA but cannot rule out and is suspected based on imaging. - Patient already on Cefazolin. Considering adding Levaquin. Will wait for workup and discuss with ID. - f/u ANCA, sputum, and urine legionella. 10. Diarrhea - c. diff negative. Stool study so far negative. - Loperamide PRN. Diarrhea is already improving. 11. Vaginal bleeding - concern for coagulopathy. INR is elevated, Xarelto had been held. - Bleeding is improving. CT Abdomen does not showed any signifciant uterine abnormalities. - Get Pelvis US to evaluate uterine lining. To f/u with [facility] once discharge, Dr. Sally Mccarty DVT ppx: SCDs. Xarelto held at this time due to vaginal bleed and recent hx of hemoptysis. Plan on re-startin Xarelto soon as bleeding is improving. VS, I&O, 24H, Fishbone Vital Signs/I&O Vital Signs Date Time Temp Pulse Resp B/P (MAP) Pulse Ox O2 Delivery O2 Flow Rate FiO2 01/17/19 09:00 56 136/68 01/17/19 06:00 18 01/17/19 04:00 4.0 01/17/19 04:00 97.2 88 01/16/19 10:00 50 I&O- Last 24 Hours up to 6 AM 01/17/19 06:00 Intake Total 1780 ml Output Total 2640 ml Balance -860 ml Laboratory Data 24H LABS Laboratory Tests 2 01/16/19 16:48: Bedside Glucose (Misc Panel) 94 01/16/19 20:20: Bedside Glucose (Misc Panel) 160H 01/17/19 05:28: Nucleated Red Blood Cells % (auto) 0.0, Anion Gap 7L, Glomerular Filtration Rate 40.8, Blood Urea Nitrogen 22H, Creatinine 1.36H, Sodium Level 139, Potassium Level 3.9, Chloride Level 103, Carbon Dioxide Level 29, Calcium Level 7.8L 01/17/19 08:47: Prothrombin Time 25.6H, Prothromb Time International Ratio 2.36 01/17/19 12:04: Bedside Glucose (Misc Panel) 135H CBC/BMP Laboratory Tests 01/17/19 05:28 Red Blood Count 2.72 L, Mean Corpuscular Volume 101.5 H, Mean Corpuscular Hemoglobin 31.3, Mean Corpuscular Hemoglobin Concent 30.8 L, Red Cell Distribution Width 17.0 H, Calcium Level 7.8 L Microbiology Microbiology 01/16/19 Blood Culture - Preliminary, Resulted No growth after 24 hours . All specim... 01/14/19 Blood Culture - Preliminary, Resulted No Growth after 72 hours. All specime... 01/14/19 Blood Culture - Preliminary, Resulted No Growth after 72 hours. All specime... 01/16/19 Gastrointestinal Tract Panel (PCR) - Final, Complete 01/16/19 Gram Stain - Final, Resulted 01/16/19 Sputum Culture, Resulted Pending CORINA RODRIGUEZ MD Jan 17, 2019 12:37
--- NOTE | 2019-01-17 14:32 | REP ---
Pelvic ultrasound for vaginal bleeding: The studies performed transabdominal and endovaginal ultrasound assessment: There is a Lopez catheter in the bladder. The bladder is adequately distended. The uterus is anteverted and normal size measuring 7.3 x 3.8 x 3.9 cm. The endometrium is thickened for patient age measuring up to 7.5 mm. And has a heterogeneous appearance with cystic changes. The ovaries could not be visualized. Impression: Abnormally thickened heterogeneous endometrium with cystic changes. The ovaries could not be visualized. No free fluid in the pelvis. Electronically Signed by Constantine Spann MD 01/17/2019 02:24 P
[2019-01-17] MEDS: LORazepam 1 MG TAB PO PRN ×2 (14:44→20:55)
[2019-01-17] MEDS: ACETAMINOPHEN TAB 650MG DOSE (2X325MG) PO PRN (16:11)
--- NOTE | 2019-01-17 17:46 | IPN ---
DATE: 01/17/2019 SUBJECTIVE: The patient is seen at bedside in the intensive care unit (ICU). She went down to ultrasound earlier today for a transvaginal ultrasound after having passed clots. While she was down in ultrasound, as they were finishing, she states that she was feeling lightheaded and somewhat short of breath. She does admit to having some claustrophobia, so attributed it to that. When she came back up to the ICU, she was noted to be back in atrial flutter, with a controlled ventricular rate. She states that she has been having symptomatic pauses in her heart rate, where she will feel lightheaded, and somewhat short of breath. On telemetry, she has had three pauses lasting greater than 4 seconds each. She denies any chest pain, lower extremity edema, orthopnea, or chest tightness. OBJECTIVE: Vital signs: Temperature 97.2, pulse 90 and irregular, respiratory rate 18, blood pressure 136/68, pulse oximetry is 88% on 4 liters. Constitutional: This is a pleasant obese elderly lady lying in bed in no acute distress. HEENT: No pallor or central cyanosis. Neck: Trachea is midline. Neck veins are approximately 4 cm above the sternal angle. Lungs: Increased AP chest diameter. She is clear to auscultation bilaterally without wheezes, rhonchi or rales. Cardiovascular: Apical impulse is appreciated lateral to the midclavicular line in the fifth intercostal space. She has distant heart sounds, S1 and S2 are variable with an increased pulmonary component of S2. No gallops or rubs, soft variable systolic murmur is appreciated at the right base. She has normal carotid upstrokes with mildly variable volume. Abdomen: Soft, normoactive bowel sounds, nontender to palpation. Extremities: Normal radial and pedal pulses bilaterally. There is no bilateral lower extremity edema appreciated. Telemetry: Shows atrial flutter/fibrillation with a controlled ventricular response. Review of events reveal three episodes of ventricular pause lasting greater than 4 seconds. LABORATORY DATA: CBC: WBC 7.0, hemoglobin 8.5, hematocrit 27.6, platelets 148. Chemistry: Sodium 139, potassium 3.9, chloride 103, carbon dioxide 29, BUN 22, creatinine 1.36, fasting glucose 66, calcium 7.8. Coagulation: INR 2.36. IMPRESSION/PLAN: 1. Sinus node arrest. Given that the patient has had three symptomatic ventricular pauses lasting greater than 4 seconds a piece, she would most likely benefit from a pacemaker. She states that her last oral intake was around 2:45 this afternoon, so the earliest it would be done would be about 9 o'clock tonight. I have requested a new EKG and will make the patient nothing by mouth. 2. Paroxysmal atrial fibrillation. Patient is status post cardioversion on . Her current ventricular response seems mostly controlled. She is currently receiving flecainide 100 mg by mouth twice a day as her bisoprolol was held this morning due to having a rate of 56 beats per minute. She is not currently receiving any anticoagulation. 3. Chronic diastolic congestive heart failure. She is currently free of signs or symptoms of congestion. She remains on furosemide with potassium supplementation as well as medications to help control ventricular response. 4. Hypertensive heart disease (benign with heart failure). Blood pressure remains controlled on her current medications. We will stop all rate controlling medicines at this point. Her renal function is improved on diuretic therapy. 5. Aortic and mitral valve disorder (nonrheumatic)/insufficiency. Soft variable systolic ejection murmur continues to be heard, which is likely related to her aortic valvular sclerosis. No insufficiency murmurs were detected on physical exam. PLAN: Plan would be to implant a pacemaker tomorrow. Will continue to follow. AUDRA
--- NOTE | 2019-01-17 19:42 | ECGEPIP ---
[facility] Test Date: 2019-01-17 Pat Name: ISMAEL MONGE Department: Room: [place] [address] Gender: Female Report Checker: MARIO : 1945 Requested By: TIANNA ROSS Order Number: [id number] Reading MD: Jay Jay Oswald Measurements Intervals [place] Rate: 100 P: VA: -1 QRS: 42 QRSD: 105 T: 91 QT: 379 QTc: 491 Interpretive Statements ATRIAL FIBRILLATION WITH RAPID VENTRICULAR RESPONSE LOW QRS VOLTAGE IN PRECORDIAL LEADS ST DEVIATION AND MODERATE T-WAVE ABNORMALITY, CONSIDER ISCHEMIA COMPARED TO THE 10 TRACINGS IN THE SYSTEM GOING UP TO 05/16/2017, PATIENT HAD EPISODES OF PAROXYSMAL ATRIAL FLUTTER. MOST RECENT TRACING ON 01/15/2019 AT 8:46 REVEALED A NORMAL SINUS RHYTHM Electronically Signed on 01-17-2019 19:41:55 EDT by Jay Jay Oswald
[2019-01-17 19:58] LABS: C REACTIVE PROTEIN QUANTITATIV 10.3 MG/DL (0.00-0.30)
[2019-01-17] MEDS ORDERED: DOBUTamine 500 MG/250 ML BAG IN D5W (2,000 MCG/ML) (J1250) As Ordered ONE (20:29)
[2019-01-17] MEDS ORDERED: DOBUTamine HCL 500,000 MCG in APPROPRIATE DILUENT 1 EA IV SCH ×2 (20:30→20:45)
[2019-01-17] MEDS: RAMELTEON 8 MG TAB (ROZEREM) PO SCH (20:55)
[2019-01-17] MEDS: ONDANSETRON 4MG/2ML VIAL (J2405) IV PRN (22:17)
[2019-01-17] MEDS: diphenhydrAMINE 25 MG CAP PO PRN (22:29)
[2019-01-18] VITALS (12 sets, daily range): BP systolic 103–138; BP diastolic 55–73
[2019-01-18] MEDS: PERCOCET 5MG/325MG TAB PO PRN ×3 (04:22→22:22)
[2019-01-18] MEDS: LORazepam 1 MG TAB PO PRN ×2 (05:37→20:28)
[2019-01-18] MEDS: LEVOTHYROXINE 75MCG TABLET (0.075MG) PO SCH (05:37)
[2019-01-18 05:58] LABS: HEMATOCRIT 28.5 % (36.0-47.0); HEMOGLOBIN 8.8 g/dl (12.0-15.5); MEAN CORPUSCULAR HEMOGLOBIN 32.1 pg (27.0-33.0); MEAN CORPUSCULAR HGB CONC 30.9 g/dl (32.0-36.5); PLATELET COUNT, AUTOMATED 131 10^3/uL (150-450); RED BLOOD COUNT 2.74 10^6/uL (4.00-5.40); WHITE BLOOD COUNT 4.9 10^3/uL (4.0-10.0)
[2019-01-18] MEDS ORDERED: D5W/0.45% SODIUM CHLORIDE 1,000 ML IV SCH (06:00)
[2019-01-18] MEDS: SODIUM CHLORIDE 0.9% INJ 10 ML SYR IV SCH ×2 (06:00→17:58)
[2019-01-18 06:25] LABS: INR 1.58; PROTHROMBIN TIME 18.6 SECONDS (11.8-14.0)
[2019-01-18 06:30] LABS: CREATININE FOR GFR 1.06 MG/DL (0.55-1.30); GLOMERULAR FILTRATION RATE 54.4 (>39); POTASSIUM SERUM 3.5 MEQ/L (3.5-5.1)
[2019-01-18] MEDS: HumaLOG INSULIN (NovoLOG) PER UNIT SC SCH ×4 (07:30→21:00)
[2019-01-18] MEDS: POTASSIUM CHLORIDE 10 MEQ SR TABLET PO SCH (07:44)
[2019-01-18] MEDS: PANTOPRAZOLE 40MG TAB (PROTONIX) PO SCH (07:44)
[2019-01-18] MEDS: MULTIVITAMINS/MINERALS THERAP 1 TAB PO SCH (07:44)
[2019-01-18] MEDS: VITAMIN D 1,000 INTERNATIONAL UNITS TABLET PO SCH (07:46)
[2019-01-18] MEDS: IPRATROPIUM 0.5MG/ALBUTEROL 2.5MG INH SOL UD 3ML (DUONEB)(J7620) NEB SCH ×3 (07:56→15:38)
--- NOTE | 2019-01-18 08:35 | IPNPDOC ---
Date Seen The patient was seen on 01/18/19. Progress Note SUBJECTIVE: Patient was noted to have multiple pauses yesterday and went into a flutter. Reported symptoms during the pauses. Dobutamine was started overnight with plan for pacemaker placement today. Patient had been anxious about everything and states she does not feel well due to anxiety but otherwise no physical complaints. No reports of diarrhea nor further bleeding. OBJECTIVE PHYSICAL EXAMINATION: VITAL SIGNS: Please see below. General: No acute distress, Alert Eyes: Normal sclera, EOMI, JESS HENT: Atraumatic, neck supple, moist mucous membranes Cardiovascular: tachycardic, irregular irregular rhythm. Pulmonary: Clear to auscultation b/l, no wheezing GI: Soft, nontender, nondistended Skin: Warm and dry Neuro: CN grossly intact. No focal deficits. Strengths equal b/l. Psych: oriented x 3 LABORATORY DATA, IMAGING STUDIES, MICROBIOLOGY: Please see below. DVT prophylaxis ordered?: On Xarelto CT Chest- Impression: Status post right upper lobectomy. Multifocal densities throughout the left upper and lower lobes, nonspecific, multifocal infiltrates versus masses. Additionally, there is a ground-glass pattern throughout the left upper lobe and lingula compatible with infiltrate. There are bilateral moderate pleural effusions as described. There are borderline enlarged mediastinal nodes, unchanged from the prior study. There is chronic tenting of the right hemidiaphragm dome, unchanged from the comparison CT, compatible with pleural adhesion. Cardiomegaly and pacemaker are unchanged. CT Abdomen/Pelvis- Impression: Hepatic cysts as described. There is no adenopathy or ascites. There are bilateral pleural effusions. 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 1. Septic shock - 2/2 Staph aureus bacteremia. - Resolved. Post pressor support. - ID following. Planned for IV Cefazolin via PICC until January 18 initially. - Nursing and Rehab vs. ARU vs home - No evidence of vegetation on ECHO. - Repeat blood cultures NTD. - To repeat blood cultures 01/22/19. - f/u with Dr. Zapien 7-10 days post discharge. 2. UTI s/p treatment 3. SJ on CKD - Improving - ACEI held at this time due to decline in kidney function. - Nephrology following. 4. HFpEF - Wean O2. - Daily weights. - Fluid overload evident on CXR, aggressive diurese at this time. 5. DM- Levemir and ISS. Hold Januvia and Farxiga. 6. Afib - s/p elective cardioversion. - resume Xarelto today. - Resume Bisoprolol and Flecainide post maker placement. 7. Hypothyroid - c/w synthroid home dose. 8. MM- hold Revlilmid: last dose 12/30/18. 9. Hemoptysis w/ hypoxic and hypercapnic resp failure - flash pulm edema vs. vasculitis vs. PNA vs. malignancy - Patient denies any prior known pulmonary disease including Asthma/COPD. - Has had history of lung ca s/p R upper lobe resection. - Multiple densities in L. lobe. Suspect septic emboli that was not evident on CXR but on CT chest. - Likely will require prolong course of Abx. No clinical signs of PNA. - f/u ANCA, sputum, and urine legionella. 10. Diarrhea - c. diff negative. Stool study so far negative. - Loperamide PRN. Diarrhea is already improving. 11. Vaginal bleeding - concern for coagulopathy. INR is elevated, Xarelto had been held. - Bleeding is improving. CT Abdomen does not showed any signifciant uterine abnormalities. - Pelvis US showed abnormally thickened heterogenous endometrium with cystic changes. - To f/u with [facility] once discharge, Dr. Sally Mccarty DVT ppx: SCDs. Xarelto. VS, I&O, 24H, Fishbone Vital Signs/I&O Vital Signs Date Time Temp Pulse Resp B/P (MAP) Pulse Ox O2 Delivery O2 Flow Rate FiO2 01/18/19 05:00 118 20 131/71 (91) 97 3.0 01/18/19 04:00 97.7 01/16/19 10:00 50 I&O- Last 24 Hours up to 6 AM 01/18/19 06:00 Intake Total 1732.7 ml Output Total 2025 ml Balance -292.3 ml Laboratory Data 24H LABS Laboratory Tests 2 01/17/19 08:47: Prothrombin Time 25.6H, Prothromb Time International Ratio 2.36 01/17/19 12:04: Bedside Glucose (Misc Panel) 135H 01/17/19 17:32: Bedside Glucose (Misc Panel) 126H 01/17/19 20:48: Bedside Glucose (Misc Panel) 160H 01/18/19 05:36: Nucleated Red Blood Cells % (auto) 0.0, Prothrombin Time 18.6H, Prothromb Time International Ratio 1.58, Anion Gap 4L, Glomerular Filtration Rate 54.4, Blood Urea Nitrogen 22H, Creatinine 1.06, Sodium Level 142, Potassium Level 3.5, Chloride Level 107, Carbon Dioxide Level 31, Calcium Level 8.0L CBC/BMP Laboratory Tests 01/18/19 05:36 Red Blood Count 2.74 L, Mean Corpuscular Volume 104.0 H, Mean Corpuscular Hemoglobin 32.1, Mean Corpuscular Hemoglobin Concent 30.9 L, Red Cell Distribution Width 17.1 H, Calcium Level 8.0 L Microbiology Microbiology 01/16/19 Blood Culture - Preliminary, Resulted No growth after 24 hours . All specim... 01/14/19 Blood Culture - Preliminary, Resulted No Growth after 72 hours. All specime... 01/14/19 Blood Culture - Preliminary, Resulted No Growth after 72 hours. All specime... 01/16/19 Gastrointestinal Tract Panel (PCR) - Final, Complete 01/16/19 Gram Stain - Final, Resulted 01/16/19 Sputum Culture, Resulted Pending CORINA RODRIGUEZ MD Jan 18, 2019 08:35
--- NOTE | 2019-01-18 08:36 | IPN ---
DATE: 01/17/2019 Mrs. Urbina was seen in the intensive care unit (ICU). She had a rough weekend where she developed hypotension and acute kidney injury, increasing shortness of breath now she is feeling better. The patient had three episodes of prolonged pauses requiring her to be scheduled for pacemaker tomorrow. She also was back into atrial flutter with controlled ventricular rate. She has no chest pain. Shortness of breath has improved although she still requiring 3 liters of oxygen. On physical exam, temperature is 97.6, pulse 99, respirations 24, O2 sat 93% on 3 liters nasal cannula. Heart: Normal S1, S2. No murmurs appreciated. Lungs: Clear except mildly diminished at bases. Abdomen: Obese, soft, nontender. Extremities: With trace edema. LABS: White count is 7, hemoglobin 8.5, hematocrit 27.6, MCV 101.5, platelets 148. Sodium 139, potassium 3.9, chloride 103, bicarb 29, BUN 22, creatinine 1.36, glucose 66, calcium 6.8, CRP 10.3, which has increased from 8.9. Sputum culture has few gram positive cocci in pairs two gram negative rods, yeastlike organism. Cultures pending. GI panel was negative. The patient has continued diarrhea, has been taking Imodium. IMAGING STUDIES: CT chest showed multiple fluffy infiltrate with bilateral moderate pleural effusion. Abdominal CT showed hepatic cyst. No adenopathy or ascites with bilateral pleural effusion. Pelvic ultrasound showed endometrial thickening with cystic changes. IMPRESSION: 1. Staphylococcus aureus bacteremia with sepsis methicillin sensitive Staphylococcus aureus (MSSA) on IV cefazolin. Initially the plan was to treat for 2 weeks from negative culture, which would be end of therapy would be tomorrow but now with the findings of new fluffy infiltrates in the chest, my concern would be that she had also septic emboli and therefore would continue IV antibiotics. 2. New pulmonary infiltrates. I am not sure that this is a nosocomial pneumonia as the patient did not have a fever during this weekend and does not have any productive cough. Her sputum is pending and will add antibiotic if there is any evidence of infection but now with her diarrhea and increased risk of C diff, I would hold off on adding antibiotics since she clinically improved over the weekend. 3. Atrial flutter with prolonged pauses. The patient is scheduled for pacemaker tomorrow. 4. Vaginal bleeding with endometrial hyperplasia. The patient will need endometrial biopsy as an outpatient. There is no urgency on that. PLAN: Continue IV cefazolin while the patient in the hospital then would switch her to an oral antibiotics to finish a total of 4 weeks for presumed septic emboli. Will followup on sputum culture and if there is a need to be would add gram-negative coverage. I will discuss the case Dr. Cadena tomorrow. The case has been discussed with Dr. Violeta Dorantes who agrees with the plan.
--- NOTE | 2019-01-18 08:40 | IPN ---
DATE: 01/17/2019 SUBJECTIVE: The patient is seen, examined this morning at the bedside in the intensive care unit. Her daughter is present. The patient reports improvement in her dyspnea. Her oxygen requirements are being weaned. She is down to 2-3 liters at the time of my visit. Her renal function has improved with holding of the MENDEZ inhibitor and her urine output is satisfactory on Lasix. She denies any recurrent vaginal blood clots and she offers no new complaints today. Vital signs: Temperature 97.6, pulse 103, respiratory rate 24, blood pressure 119/62, saturating 93% on 3 liters nasal cannula. Intake yesterday was 1590, urine output yesterday was 2600, net negative 1 liter. Weight on the bed scale today is 82.1 kg. General: The patient was seen sitting out of bed upright on the commode. She is awake, alert and oriented and in no acute respiratory distress. Extraocular muscles are intact. Tongue is moist. Neck is supple. Jugular veins are not elevated while she is sitting upright. Lungs show symmetric air entry bilaterally without crackle, rale or rhonchus. There are diminished breath sounds at both bases. Cardiac: There is some mild tachycardia. There is no edema in the peripheries. There is a systolic murmur. Abdomen is soft and obese. There are bowel sounds. Extremities are negative for cyanosis or edema. Neurologic: She is oriented and interactive. Skin: Normal temperature and turgor. LABORATORY DATA: Sodium 139, potassium 3.9, BUN 22, creatinine 1.3, CRP 10, hemoglobin 8.5. Chest x-ray January 17 showed pleural effusion. INPATIENT MEDICATIONS: The patient continues on Cefazolin. Remainder of medications are unchanged from prior. PROBLEMS: 1. Nonoliguric acute kidney injury, it was likely related to borderline hypotension and concomitant use of MENDEZ inhibitor and diuretic in this patient who also had a recent acute kidney injury earlier during the same admission. Her MENDEZ inhibitor was held. She has had improvement in her creatinine from 2.4 down to 1.3 today. I would suggest to keep her off of MENDEZ inhibitor and angiotensin receptive osmel for the duration of her hospitalization. She does have of bilateral pleural effusion and I would continue with diuresis at this time. Her supplemental oxygen requirements are improving. Her vasculitic and anti-GBM studies are pending, but we are less suspicious for glomerulonephritis as the culprit. Her urinalysis only had blood and no protein and her SJ is much more likely related to recent sepsis, hypotension, concomitant use of MENDEZ inhibitor. 2. Methicillin-sensitive Staphylococcus aureus. Status post removal of [id number]. ANETTE was noted. She was receiving cephazolin 2 grams IV every 8 hours. When her GFR decreased to 20 on January 16, I did decrease the dose to 2 mg q. 12-hourly but I feel now with recovery of renal function she can go back to the prior dose that infectious disease had her on. 3. Hypoxic respiratory failure. CT of the chest noted. Discussed with Dr. Cadena. Bilateral moderate pleural effusions, continue Lasix diuresis. Renal function is improving. Hold MENDEZ inhibitor. She does have a history of lung malignancy, which further complicates the picture.
--- NOTE | 2019-01-18 10:16 | CCN ---
DATE: 01/18/2019 Ms. Urbina is quite down in mood because she has to go for a procedure today. Apparently, she is scheduled for a pacer for tachybrady syndrome. She had significant pauses yesterday. Overall, she states she is doing well. No significant productive cough. She just wants to rest. Temperature is 98.5, pulse is 119, irregularly irregular, respiratory rate is 20, blood pressure is 126/67, oxygen saturations 100% on 3 liters. General: The patient is depressed but awake, alert and oriented. HEENT: Sclerae clear. Pupils do react to light. Mucous membranes are moist without lesions. Neck is supple. No tracheal deviation or mass. LYMPHS: No cervical, supraclavicular or axillary adenopathy. Pulmonary: Clear to auscultation without rales or wheezes. No dullness to percussion. No accessory muscle use. Cardiac: Irregularly irregular S1, S2 with soft variable systolic murmur. Abdomen is obese, soft, nontender, nondistended. No hepatosplenomegaly. Extremities: No cyanosis, clubbing or edema. Laboratory evaluation shows a WBC of 4.9, hemoglobin is 8.8, platelet count is 131. Sodium is 142, potassium 3.5, chloride is 107, BUN of 22, creatinine of 1.06. Sputum grew Serratia, moderate amount, resistant to cefazolin, not surprising. IMPRESSION: 1. Serratia pneumonia, likely correlates with the abnormal finding on chest CT in the left upper lobe. Would recommend starting antibiotic therapy based on resistance pattern. 2. Pulmonary edema. Management per cardiology. The patient had significant improvement over the weekend. 3. Tachybrady syndrome. Due for pacer today. 4. History of Staphylococcus bacteremia of undetermined source. On IV cefazolin.
[2019-01-18] MEDS ORDERED: MEROPENEM INJ 1 GM in APPROPRIATE DILUENT 1 EA IV SCH (11:00)
[2019-01-18] MEDS ORDERED: LIDOCAINE 1% SDV INJ 30 ML VIAL As Ordered ONE (12:43)
[2019-01-18] MEDS ORDERED: ISOVUE-300 61% 50ML VIAL (Q9967) As Ordered ONE (12:43)
[2019-01-18] MEDS ORDERED: LIDOCAINE 2% INJ 100 MG/5 ML SDV (FOR ANES.) As Ordered ONE (13:27)
[2019-01-18] MEDS ORDERED: PROPOFOL 200 MG/20 ML VIAL As Ordered ONE (13:27)
[2019-01-18] MEDS ORDERED: MIDAZOLAM INJ 2 MG/2 ML VIAL (J2250) As Ordered ONE (13:27)
[2019-01-18] MEDS ORDERED: fentaNYL 100 MCG/2 ML INJECTION (J3010) As Ordered ONE (13:28)
--- NOTE | 2019-01-18 14:31 | IPN ---
DATE OF SERVICE: 01/18/2019 SUBJECTIVE: The patient is seen at bedside in the intensive care unit (ICU). Overnight she had some prolonged pauses the longest of which was about 8 seconds. She was subsequently put on dobutamine drip. She will be going for a pacemaker this afternoon. She states that since being, dobutamine drip she is no longer having episodes where she feels lightheaded or short of breath. She denies chest pain, lower extremity edema, orthopnea, or chest tightness. She converted into sinus rhythm this morning around 10-11 AM. TELEMETRY: Multiple sinus pauses, the longest of which lasted about 8 seconds. She is currently in sinus rhythm. OBJECTIVE: Vitals: Temperature 97.0, pulse 78 regular, respiratory rate 20, blood pressure 103/60 with a mean arterial pressure (MAP) of 74. Pulse oximetry is 97% on 3 liters. Constitutional: Pleasant, obese, elderly lady, lying in bed in the ICU, in no acute distress. HEENT: Mucous membranes are moist. No pallor or central cyanosis. Neck: Trachea is midline. Neck veins are about 5 cm above the sternal angle. Lungs: Increased anteroposterior (AP) chest diameter. Clear to auscultation bilaterally. No wheezes, rhonchi, or rales. Cardiovascular: Apical impulse lateral to the midclavicular line in the fifth intercostal space. Distant heart sounds. However, S1 and S2 are variable with increased pulmonary component of S2. No gallops or rubs, soft systolic murmur is appreciated at the right base. Normal carotid upstrokes with normal volume. Abdomen: Soft, normoactive bowel sounds, nontender to palpation. Extremities: Normal pedal pulses bilaterally. No bilateral lower extremity edema appreciated. LABORATORY DATA: CBC: WBC 4.9, hemoglobin 8.8, hematocrit 28.5, platelets 131. Chemistry: Electrolytes are in balance with a sodium of 142, potassium 3.5, chloride 107, and carbon dioxide of 31. Slightly high BUN at 22 with a creatinine of 1.06, much improved on her diuretic therapy. Fasting glucose of 105, calcium 8.0. Coagulation studies: PT 18.6, INR 1.5. MICROBIOLOGY: Sputum culture is positive for Serratia, for which she is now on meropenem and cefazolin. IMPRESSION/PLAN: 1. Tachybrady syndrome. The patient continues to have sinus mary arrest with symptomatic pauses, that is improved on dobutamine. She has been nothing by mouth since midnight and will go for a pacemaker this afternoon. 2. Paroxysmal atrial fibrillation. The patient is status post cardioversion last . She converted into sinus rhythm this morning, and her current ventricular response seems mostly control at the moment. Her rate controlling medications were discontinued yesterday for symptomatic sinus arrest. Overnight her fastest rate was about 123. Once her pacemaker has been placed, we can resume rate controlling medication therapy as indicated. She was previously on Xarelto, however, this had been held as the patient was passing clots out of her vagina yesterday. Xarelto will be resumed tomorrow. 3. Chronic diastolic congestive heart failure. She is currently free of signs or symptoms of congestion. She is status post diuretic therapy with furosemide. 4. Hypertensive heart disease (benign with heart failure). Blood pressure is well-controlled at the moment. Her renal function is improved. Will reassess after implantation of her pacemaker this afternoon. 5. Aortic and mitral valve disorder (nonrheumatic)/insufficiency. Soft variable systolic ejection murmur continues be heard, likely related to her aortic valvular sclerosis. No insufficiency murmurs detected on physical exam. PLAN: The patient will receive a pacemaker this afternoon. We will continue to follow. AUDRA
[2019-01-18] MEDS ORDERED: METOCLOPRAMIDE INJ 10MG/2ML VIAL (J2765) IV PRN (16:00)
[2019-01-18] MEDS ORDERED: ONDANSETRON 4MG/2ML VIAL (J2405) IV PRN (16:00)
[2019-01-18] MEDS ORDERED: PERCOCET 5MG/325MG TAB PO PRN (16:00)
[2019-01-18] MEDS ORDERED: fentaNYL 100 MCG/2 ML INJECTION (J3010) IV PRN (16:00)
[2019-01-18] MEDS ORDERED: LR 1,000 ML IV SCH (16:00)
--- NOTE | 2019-01-18 16:18 | REP ---
Clinical: Pacemaker. Comparison: 01/17/2019. Findings: Newly placed dual lead pacemaker in satisfactory position. Stable cardiomegaly. Diffuse chronic interstitial changes with superimposed bilateral alveolar and interstitial infiltrates are suggested along with possible pleural effusions. No pneumothorax. Skeletal structures stable. Impression: 1. Satisfactory pacemaker placement. 2. Diffuse bilateral infiltrates and possible effusions. Electronically Signed by Bert Watts MD 01/18/2019 04:10 P
[2019-01-18] MEDS ORDERED: PERCOCET 5MG/325MG TAB As Ordered ONE (16:24)
--- NOTE | 2019-01-18 17:33 | IPN ---
DATE: 01/18/2019 Javier Caba was seen in the recovery room after she had her pacemaker. 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 The patient denies any nausea, vomiting, diarrhea, shortness of breath is improved. LABORATORY DATA White count is 4.9, hemoglobin 8.8, hematocrit 28.5, platelets 131. Sodium 142, potassium 3.5, chloride 107, bicarb 31, BUN 22, creatinine 1.06, glucose 105, calcium 8. Procalcitonin is 1.4, down from 43.98 on 01/18. Sputum culture was positive for Serratia marcescens, only resistant to cefazolin. IMAGING STUDIES Chest x-ray done on 01/18 after pacemaker placement, bilateral infiltrates and effusions, unchanged. IMPRESSION 1. Staphylococcus aureus sepsis with MSSA. Has finished a 2-week course of IV cefazolin. 2. Serratia marcescens on sputum culture with new pulmonaty infiltrates The patient has clinically improved overall. Her procalcitonin has dropped from upper high 40s to 1.4 I have switched her antibiotics to IV Rocephin; that should cover for MSSA and Serratia. Discontinue IV meropenem that was started earlier today. 3. Diarrhea, improving with as needed (p.r.n.) Imodium. C diff was negative. PLAN Discontinue IV cefazolin, meropenem switched to IV Rocephin 2 grams daily. MTDD
[2019-01-18] MEDS: BISOPROLOL FUMARATE 5 MG TAB PO SCH ×2 (17:55→20:28)
[2019-01-18] MEDS: cefTRIAXone SOD 2 GM in D5W MINI-BAG PLUS 50 ML IV SCH (17:57)
[2019-01-18] MEDS ORDERED: RIVAROXABAN 15 MG TAB (XARELTO) PO SCH (18:00)
[2019-01-18] MEDS: RAMELTEON 8 MG TAB (ROZEREM) PO SCH (20:27)
[2019-01-18] MEDS: FLECAINIDE 50MG TABLET PO SCH (20:28)
--- NOTE | 2019-01-18 21:31 | RO ---
DATE OF PROCEDURE: 01/18/2019 PREOPERATIVE DIAGNOSES: 1. Tachy-chris syndrome with symptomatic asystolic pauses. 2. Paroxysmal atrial fibrillation/flutter. POSTOPERATIVE DIAGNOSES: 1. Tachy-chris syndrome with symptomatic asystolic pauses. 2. Paroxysmal atrial fibrillation/flutter. PROCEDURE: Implantation of permanent dual-chamber pacemaker. SURGEON/IMPLANTING GUIDEMAN: Dr. Fritz Oconnell GROUT MACHINE OPERATOR: ANESTHESIOLOGIST: Dr. Zapien TYPE OF ANESTHESIA: Monitored local anesthesia. DESCRIPTION OF PROCEDURE: With the patient in the fasting state following informed consent and Ancef 2 grams IV premedication, the patient was taken to the operating theater. Numerous skin electrodes were applied to facilitate continuous electrocardiographic monitoring. Self-adhesive cardioverting/defibrillating pads were applied in an anteroposterior configuration and connected to a bedside cardioverter defibrillator. The left subclavian region was prepped and draped in the usual fashion and the skin was infiltrated with 1% Xylocaine. The left axillary vein was catheterized using the Seldinger technique and micropuncture needle. A 5 cm linear incision was made several centimeters below and parallel to the left clavicle. Dissection was carried down to the level of the pectoralis fascia, and a pocket was fashioned below the level of the incision line. Two bipolar screw-in active fixation steroid-eluting pacing leads were then positioned to the distal right ventricular septum and high right atrial appendage under fluoroscopic and electrocardiographic control. The ventricular lead ([employer], model number [id number], serial number [id number]) measurements were: Stimulation threshold 0.5 V/0.4 ms/impedance 562 ohms. The R wave amplitude measured 10.0 mV. The atrial lead ([employer], model number [id number], serial number [id number]) measurements were: Stimulation threshold 0.5 V/0.4 ms/impedance 490 ohms. The P wave amplitude measured 6.5 mV. These leads were secured in position with sleeves sutured at the insertion site. They were then connected to a dual-chamber pulse generator - MRI compatible ([employer] [facility], model number [id number], serial number [id number]) and appropriate DDD pacing was documented. The device was placed in the pocket and secured in position with a suture through the upper right-hand corner of the epoxy header. The subcutaneous tissues were approximated using a running chromic suture, and the skin was closed using sahil. A dry dressing was applied, and the patient was returned to the recovery room in good condition. No apparent complications. Estimated blood loss: 10 mL. Our plan is to keep her on telemetry for an additional 24 hours, and we will be resuming her customary bisoprolol and flecainide antiarrhythmic therapies. We will hold off oral anticoagulation for additional 24 hours MTDD
[2019-01-19] MEDS: ACETAMINOPHEN TAB 650MG DOSE (2X325MG) PO PRN (01:17)
[2019-01-19 04:00] VITALS: BP 141/70
[2019-01-19] MEDS: PERCOCET 5MG/325MG TAB PO PRN ×3 (04:41→17:48)
[2019-01-19] MEDS: SODIUM CHLORIDE 0.9% INJ 10 ML SYR IV SCH ×2 (05:08→18:51)
[2019-01-19] MEDS: LEVOTHYROXINE 75MCG TABLET (0.075MG) PO SCH (05:08)
[2019-01-19 05:20] LABS: HEMATOCRIT 29.9 % (36.0-47.0); MEAN CORPUSCULAR HEMOGLOBIN 31.3 pg (27.0-33.0); MEAN CORPUSCULAR HGB CONC 30.1 g/dl (32.0-36.5); MEAN CORPUSCULAR VOLUME 103.8 fl (80.0-96.0); PLATELET COUNT, AUTOMATED 157 10^3/uL (150-450); RED BLOOD COUNT 2.88 10^6/uL (4.00-5.40); WHITE BLOOD COUNT 5.5 10^3/uL (4.0-10.0)
[2019-01-19 05:30] LABS: INR 1.24; PROTHROMBIN TIME 15.3 SECONDS (11.8-14.0)
[2019-01-19 05:53] LABS: CALCIUM LEVEL 7.7 MG/DL (8.8-10.2); CREATININE FOR GFR 1.01 MG/DL (0.55-1.30); GLOMERULAR FILTRATION RATE 57.5 (>39); POTASSIUM SERUM 4.2 MEQ/L (3.5-5.1)
[2019-01-19] MEDS: HumaLOG INSULIN (NovoLOG) PER UNIT SC SCH ×4 (07:30→20:59)
[2019-01-19] MEDS: IPRATROPIUM 0.5MG/ALBUTEROL 2.5MG INH SOL UD 3ML (DUONEB)(J7620) NEB SCH ×3 (08:00→15:03)
[2019-01-19 08:01] VITALS: BP 140/80
--- NOTE | 2019-01-19 08:53 | REP ---
Clinical: Post Pacemaker Placement Technique: AP and Lateral Comparison: 01/18/2019 Findings: Pacemaker in stable satisfactory position. Cardiac silhouette is within normal limits. Lung begum suggest improved aeration with continued basilar atelectasis and smaller effusions. Impression: Improved aeration. Continued basilar infiltrates and suspected small effusions decreased from 01/18/2019. Electronically Signed by Bert Watts MD 01/19/2019 08:43 A
--- NOTE | 2019-01-19 09:04 | IPNPDOC ---
Date Seen The patient was seen on 01/19/19. Progress Note SUBJECTIVE: Patient s/p pacemaker placement yesterday. HR had been stable without any reported pauses overnight. Patient has no physical complaints but continues to appear anxious and reports anxiety. Requesting for Ativan to be increased. Denies any diarrhea or recurrence of bleed. OBJECTIVE PHYSICAL EXAMINATION: VITAL SIGNS: Please see below. General: No acute distress, Alert Eyes: Normal sclera, EOMI, JESS HENT: Atraumatic, neck supple, moist mucous membranes Cardiovascular:Normal rate Pulmonary: Clear to auscultation b/l, no wheezing GI: Soft, nontender, nondistended Skin: Warm and dry Neuro: CN grossly intact. No focal deficits. Strengths equal b/l. Psych: oriented x 3 LABORATORY DATA, IMAGING STUDIES, MICROBIOLOGY: Please see below. DVT prophylaxis ordered?: On Xarelto CT Chest- Impression: Status post right upper lobectomy. Multifocal densities throughout the left upper and lower lobes, nonspecific, multifocal infiltrates versus masses. Additionally, there is a ground-glass pattern throughout the left upper lobe and lingula compatible with infiltrate. There are bilateral moderate pleural effusions as described. There are borderline enlarged mediastinal nodes, unchanged from the prior study. There is chronic tenting of the right hemidiaphragm dome, unchanged from the comparison CT, compatible with pleural adhesion. Cardiomegaly and pacemaker are unchanged. CT Abdomen/Pelvis- Impression: Hepatic cysts as described. There is no adenopathy or ascites. There are bilateral pleural effusions. 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 1. Septic shock - 2/2 Staph aureus bacteremia. - Resolved. Post pressor support. - ID following. s/p IV Cefazolin via PICC course, completed January 18. - Nursing and Rehab vs. ARU vs home - No evidence of vegetation on ECHO. - Repeat blood cultures NTD. - f/u with Dr. Zapien 7-10 days post discharge. 2. UTI s/p treatment 3. SJ on CKD - Improved - Appreciated nephrology's help. 4. HFpEF - Wean O2. - Daily weights. - Fluid overload evident on CXR, c/w diuresis. 5. DM- Levemir and ISS. Hold Januvia and Farxiga. 6. Afib - s/p elective cardioversion. - resume Xarelto today. - Resume Bisoprolol and Flecainide post maker placement. 7. Hypothyroid - c/w synthroid home dose. 8. MM- hold Revlilmid: last dose 12/30/18. 9. Hemoptysis w/ hypoxic and hypercapnic resp failure - flash pulm edema vs. vasculitis vs. PNA vs. malignancy - Patient denies any prior known pulmonary disease including Asthma/COPD. - Has had history of lung ca s/p R upper lobe resection. - Multiple densities in L. lobe. Suspect septic emboli. - On IV Rocephin. 10. Diarrhea - c. diff negative. Stool study so far negative. - Loperamide PRN. Diarrhea is already improving. 11. Vaginal bleeding - concern for coagulopathy. INR is elevated, Xarelto had been held. - Bleeding is improving. CT Abdomen does not showed any signifciant uterine abnormalities. - Pelvis US showed abnormally thickened heterogenous endometrium with cystic changes. - To f/u with [facility] once discharge, Dr. Sally Mccarty 12. PNA and likely septic emboli - Sputum culture + Serratia. - Multiple densities on CT chest concern for septic emboli from initial sepsis. - Started on IV Rocephin per ID. Continue for now. DVT ppx: SCDs. Xarelto. VS, I&O, [facility]H, [facility] Vital Signs/I&O Vital Signs Date Time Temp Pulse Resp B/P (MAP) Pulse Ox O2 Delivery O2 Flow Rate FiO2 01/19/19 08:01 97.4 70 18 140/80 (100) 96 3.0 01/16/19 10:00 50 I&O- Last 24 Hours up to 6 AM 01/19/19 06:00 Intake Total 775 ml Output Total 350 ml Balance 425 ml Laboratory Data 24H LABS Laboratory Tests 2 01/18/19 11:22: Bedside Glucose (Misc Panel) 109 01/18/19 15:51: Bedside Glucose (Misc Panel) 150H 01/18/19 17:53: Bedside Glucose (Misc Panel) 108 01/18/19 20:22: Bedside Glucose (Misc Panel) 152H 01/19/19 04:57: Nucleated Red Blood Cells % (auto) 0.0, Prothrombin Time 15.3H, Prothromb Time International Ratio 1.24, Anion Gap 1L, Glomerular Filtration Rate 57.5, Blood Urea Nitrogen 15, Creatinine 1.01, Sodium Level 138, Potassium Level 4.2, Chloride Level 106, Carbon Dioxide Level 31, Calcium Level 7.7L CBC/BMP Laboratory Tests 01/19/19 04:57 Red Blood Count 2.88 L, Mean Corpuscular Volume 103.8 H, Mean Corpuscular Hemoglobin 31.3, Mean Corpuscular Hemoglobin Concent 30.1 L, Red Cell Distribution Width 17.3 H, Calcium Level 7.7 L Microbiology Microbiology 01/16/19 Blood Culture - Preliminary, Resulted No Growth after 48 hours. All Specime... 01/14/19 Blood Culture - Final, Complete NO GROWTH AFTER 5 DAYS 01/14/19 Blood Culture - Final, Complete NO GROWTH AFTER 5 DAYS 01/16/19 Gastrointestinal Tract Panel (PCR) - Final, Complete 01/16/19 Gram Stain - Final, Complete 01/16/19 Sputum Culture - Final, Complete Serratia Marcescens CORINA RODRIGUEZ MD Jan 19, 2019 09:04
[2019-01-19] MEDS: BISOPROLOL FUMARATE 5 MG TAB PO SCH ×4 (10:02→21:05)
[2019-01-19] MEDS: TORSEMIDE 20 MG TAB PO SCH (10:04)
[2019-01-19] MEDS: VITAMIN D 1,000 INTERNATIONAL UNITS TABLET PO SCH (10:04)
[2019-01-19] MEDS: FLECAINIDE 50MG TABLET PO SCH ×2 (10:04→21:04)
[2019-01-19] MEDS: PANTOPRAZOLE 40MG TAB (PROTONIX) PO SCH (10:04)
[2019-01-19] MEDS: MULTIVITAMINS/MINERALS THERAP 1 TAB PO SCH (10:05)
[2019-01-19] MEDS: POTASSIUM CHLORIDE 10 MEQ SR TABLET PO SCH (10:05)
[2019-01-19 11:45] VITALS: BP 147/82
[2019-01-19] MEDS ORDERED: LOPERAMIDE 2 MG CAP PO ONE (13:00)
[2019-01-19] MEDS: ONDANSETRON 4MG/2ML VIAL (J2405) IV PRN (13:30)
--- NOTE | 2019-01-19 14:50 | IPN ---
CARDIOLOGY PROGRESS NOTE DATE: 01/19/2019 SUBJECTIVE: Describes only minimal incisional discomfort following her pacemaker implantation yesterday has been up to the bedside commode without lightheadedness. Unfortunately has developed loose bowel movements with her combination antibiotic therapy. Claims her breathing has improved. Remains unaware of her heart action. OBJECTIVE: Pleasant, obese, elderly lady, lying comfortably with the head of bed elevated 30 degrees. Heart rate 70 bpm and regular. Blood pressure 147/82 earlier today. Respiratory rate 18. O2 saturation 94% on supplemental oxygen by nasal prongs at 3 liters per minute. Weight today is slightly higher than yesterday, but similar to the day before. No pallor or central cyanosis. Normal oral moisture. Trachea midline. Neck veins remain slightly elevated at perhaps 4 or 5 cm above the sternal angle. Does not appear to have any sacral or lower leg swelling, however. Slightly increased anteroposterior chest diameter with well-healing left subclavian pacer incision. Dressing was changed today. Has good air entry over both lung begum with no current inspiratory rales. 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 No evidence of recurrent atrial flutter/fibrillation. PA and left lateral chest x-ray reviewed independently taken earlier today shows ongoing at least mild cardiomegaly with normal appearing greater vessels, pulmonary vasculature did not appear to be congested, still has increased asymmetrical increased interstitial markings, especially of the left lung. No pneumothorax. Stable pacing leads in the high right atrial appendage and distal right ventricular septum. EKG: Tracing taken this morning was reviewed independently and shows consistent atrially paced rhythm with atrial tracking and ventricular spikes prior to actually spontaneously conducted QRS complexes. Somewhat low limb voltages and precordial voltages with slow precordial R-wave progression in keeping with her body habitus versus pulmonary disease. Nonspecific ST/T-wave abnormalities. Rhythm has converted from atrial fibrillation January 17, 2019. LABORATORY DATA: Hemoglobin today is stable at 9.0. Normal white blood cell count and platelet count. PT/INR today was 15.3/1.2. Chemistry this morning shows electrolyte balance with BUN 15, creatinine 1.0, fasting glucose 93. IMPRESSION/PLAN: 1. Paroxysmal atrial fibrillation/flutter: With her current increased pacing rate of 70, bisoprolol and flecainide therapies her rhythm has been quite regular. We are cautiously optimistic this combination will be effective in preventing recurrent arrhythmia. We will be now resuming her oral anticoagulation. 2. Tachybrady syndrome/dual-chamber pacemaker in situ: As mentioned has only minimal incisional discomfort. Incision appears to be healing properly. Chest x-ray confirms stable lead position. Complete pacemaker interrogation was performed today showing excellent intracardiac electrograms and pacing thresholds with anticipated battery longevity of 10.9 years. No program changes were made today. 3. Heart failure (diastolic dysfunction/chronic): Clinically has good air entry over both lung begum with no apparent ongoing pulmonary venous congestion. Her chest x-ray still shows an asymmetrical infiltrative process? Related to pneumonitis which is appears to be improving from her last study. At this point we would continue a modest salt and fluid intake restriction and her present dose of torsemide 20 mg daily. 4. Hypertensive heart disease (benign with heart failure): Has been tolerating her bisoprolol that we had temporarily placed 5 mg four times a day until we were sure that her blood pressure would tolerate this agent. At this point we plan to resume her customary dosage of 10 mg twice a day. Will continue on torsemide as mentioned above. I am confident this combination should be adequate to control her blood pressure. Chemistry confirms electrolyte balance with normal renal function. We have encouraged the patient to get up out of bed and ambulate in preparation for possible discharge tomorrow. 5. 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 Her white blood cell count is normal and she is afebrile. If she is able to ambulate well with a course in the next 24 hours and hopefully her diarrhea settles down, she should be able to be discharged tomorrow morning. We plan on discontinuing her telemetry at this time. We will encourage her to formally light activities of daily living and avoid getting her incision wet until sahil are removed in our office in approximately 7-10 days' time. We will also encouraged her to contact us promptly for any abnormal swelling, erythema or discharge.
[2019-01-19 16:00] VITALS: BP 135/75
[2019-01-19] MEDS: cefTRIAXone SOD 2 GM in D5W MINI-BAG PLUS 50 ML IV SCH (17:46)
[2019-01-19] MEDS: RIVAROXABAN 15 MG TAB (XARELTO) PO SCH (17:47)
[2019-01-19 20:00] VITALS: BP 147/77
[2019-01-19] MEDS: LORazepam 1 MG TAB PO PRN (21:04)
[2019-01-19] MEDS: RAMELTEON 8 MG TAB (ROZEREM) PO SCH (21:05)
[2019-01-19 23:59] VITALS: BP 162/78
[2019-01-20 00:06] LABS: ANTI-GLOMERULAR BASEMENT MEMB 8 units (0-20); FUNGITELL, SERUM 208 pg/mL (<80)
[2019-01-20 00:06] LABS: BODY FLUID CULTURE Not Indicated (.); LEGIONELLA ANTIGEN URINE Negative (Negative); ORGANISM ID Not indicated. (.); SPECIMEN SOURCE Urine (.); URINE STREP PNEUMONIAE ANTIGEN Negative (Negative)
[2019-01-20 04:00] VITALS: BP 148/86
[2019-01-20] MEDS: LEVOTHYROXINE 75MCG TABLET (0.075MG) PO SCH (05:13)
[2019-01-20] MEDS: SODIUM CHLORIDE 0.9% INJ 10 ML SYR IV SCH ×2 (05:13→18:40)
[2019-01-20] MEDS: LORazepam 1 MG TAB PO PRN ×3 (05:13→18:40)
[2019-01-20 05:38] LABS: HEMATOCRIT 32.5 % (36.0-47.0); HEMOGLOBIN 9.7 g/dl (12.0-15.5); MEAN CORPUSCULAR HEMOGLOBIN 30.7 pg (27.0-33.0); MEAN CORPUSCULAR HGB CONC 29.8 g/dl (32.0-36.5); MEAN CORPUSCULAR VOLUME 102.8 fl (80.0-96.0); PLATELET COUNT, AUTOMATED 214 10^3/uL (150-450); RED BLOOD COUNT 3.16 10^6/uL (4.00-5.40); WHITE BLOOD COUNT 7.5 10^3/uL (4.0-10.0)
[2019-01-20 05:47] LABS: INR 1.42; PROTHROMBIN TIME 17.1 SECONDS (11.8-14.0)
[2019-01-20] MEDS: IPRATROPIUM 0.5MG/ALBUTEROL 2.5MG INH SOL UD 3ML (DUONEB)(J7620) NEB PRN (05:53)
[2019-01-20] MEDS: ONDANSETRON 4MG/2ML VIAL (J2405) IV PRN ×2 (05:54→18:52)
[2019-01-20] MEDS: SODIUM CHLORIDE 0.9% INJ 10 ML SYR IV PRN (05:54)
[2019-01-20 06:07] LABS: CALCIUM LEVEL 8.5 MG/DL (8.8-10.2); CREATININE FOR GFR 1.15 MG/DL (0.55-1.30); GLOMERULAR FILTRATION RATE 49.5 (>39); POTASSIUM SERUM 4.9 MEQ/L (3.5-5.1)
[2019-01-20] MEDS: IPRATROPIUM 0.5MG/ALBUTEROL 2.5MG INH SOL UD 3ML (DUONEB)(J7620) NEB SCH ×4 (07:15→23:23)
[2019-01-20 08:00] VITALS: BP 149/75
[2019-01-20] MEDS: MULTIVITAMINS/MINERALS THERAP 1 TAB PO SCH (09:47)
[2019-01-20] MEDS: PANTOPRAZOLE 40MG TAB (PROTONIX) PO SCH (09:47)
[2019-01-20] MEDS: HumaLOG INSULIN (NovoLOG) PER UNIT SC SCH ×4 (09:47→21:00)
[2019-01-20] MEDS: FLECAINIDE 50MG TABLET PO SCH ×2 (09:48→21:31)
[2019-01-20] MEDS: VITAMIN D 1,000 INTERNATIONAL UNITS TABLET PO SCH (09:48)
[2019-01-20] MEDS: BISOPROLOL FUMARATE 10 MG TAB PO SCH ×2 (09:48→21:31)
[2019-01-20] MEDS: ACETAMINOPHEN TAB 650MG DOSE (2X325MG) PO PRN (09:48)
[2019-01-20] MEDS: POTASSIUM CHLORIDE 10 MEQ SR TABLET PO SCH (09:49)
[2019-01-20] MEDS: TORSEMIDE 20 MG TAB PO SCH (09:49)
[2019-01-20 11:30] VITALS: BP 152/69
--- NOTE | 2019-01-20 15:48 | IPN ---
CARDIOLOGY PROGRESS NOTE: DATE OF SERVICE: 01/20/2019 SUBJECTIVE: The patient is seen at bedside today. She reports that overnight she became extremely short of breath around the 6:00 p.m. to 7:00 p.m. last night. She attributes it to anxiety. During that time, her Oxygen saturation remained at 93% on 3 liters except that she was placed on a mask with an FiO2 of 0.50. During this time, her pulse did not increase and remained around 70 beats per minute and regular. Her blood pressure was also stable at this time at 135/75, and her respiratory rate stayed at 18. Today, she describes some minimal discomfort in the left side of her chest following pacemaker implantation. She is postop day #2 today. She has been up to the bedside commode without lightheadedness, although is still having some loose stools. She states that aside from her episode of shortness of breath last night her breathing has overall improved. She denies any wheezing. OBJECTIVE: This is a pleasant, obese, elderly lady, lying in bed comfortably with the head of the bed elevated to 30 degrees. Her heart rate is 70 and regular. Blood pressure this morning was 149/75. Respiratory rate is 18. Oxygen saturation is 92% on 3 liters of oxygen. Her weight is somewhat less this morning than yesterday, she has lost approximately 1 kg which corresponds to her negative balance of 1 liter yesterday. No pallor or central cyanosis is noted. She has normal oral moisture. Trachea is midline with the neck veins slightly elevated at 4-5 cm above the sternal angle. She does not have any sacral or lower leg swelling. Slightly increased anteroposterior (AP) chest diameter. Dressing on the left anterior chest wall is dry and intact. She has good air entry over both lung begum with no current inspiratory rales. LABORATORY DATA: CBC: Hemoglobin improved to 9.7 from 9.0 today. She has a normal white count and platelet count. PT/INR today was 17.1/1.2, respectively. Chemistry this morning shows electrolyte balance with a BUN of 14, creatinine of 1.0, fasting glucose 113. IMPRESSION/PLAN: 1. Paroxysmal atrial fibrillation/flutter: She has a stable pacing rate of 70 beats per minute, and is currently receiving bisoprolol and flecainide therapies. She has been regular. We are cautiously optimistic that this combination will be effective in preventing recurrent arrhythmia. She started her Xarelto last night. 2. Tachybrady syndrome/dual-chamber pacemaker in situ: Postoperative day #2, her dressing is dry and intact. Yesterday, her complete pacemaker interrogation showed excellent intracardiac electrograms and pacing thresholds with anticipated better longevity of 10.9 years. No program changes were made today. 3. Heart failure (diastolic dysfunction/chronic): She has good air entry over both lung begum with no apparent ongoing pulmonary venous congestion. We would advise continuing a modest salt and fluid intake restriction, and for her to continue with torsemide 20 mg daily. 4. Hypertensive heart disease (benign with heart failure): She has been tolerating the bisoprolol 10 mg twice a day dosing, her blood pressure has been stable. She continues on torsemide, and this combination should be adequate to control her blood pressure. Her chemistry reveals electrolyte balance with a normal renal function. We have encouraged the patient to get up out of bed and ambulate. 5. Mitral and aortic valve disorder (nonrheumatic)/insufficiency: At this point, does not appear to have any signs or symptoms of endocarditis. White cell count is normal and she is afebrile.
[2019-01-20 15:56] VITALS: BP 126/61
[2019-01-20 17:30] LABS: C REACTIVE PROTEIN QUANTITATIV 7.4 MG/DL (0.00-0.30)
[2019-01-20] MEDS ORDERED: SODIUM CHLORIDE HYPERTONIC 3% 15ML NEB SOL NEB ONE (18:00)
[2019-01-20] MEDS: cefTRIAXone SOD 2 GM in D5W MINI-BAG PLUS 50 ML IV SCH (18:36)
[2019-01-20] MEDS: LOPERAMIDE 2 MG CAP PO PRN (18:36)
[2019-01-20] MEDS: RIVAROXABAN 15 MG TAB (XARELTO) PO SCH (18:36)
[2019-01-20 20:00] VITALS: BP 127/68
[2019-01-20] MEDS: RAMELTEON 8 MG TAB (ROZEREM) PO SCH (21:31)
[2019-01-20] MEDS: PERCOCET 5MG/325MG TAB PO PRN (21:31)
--- NOTE | 2019-01-20 21:44 | IPN ---
DATE: 01/20/2019 She feels well she is hoping she could be discharged before her daughter leaves on vacation She had an episode of shortness of breath over night around 7 p.m., she relates to anxiety. Today she is feeling better. No nausea, vomiting, or abdominal pain but continues with diarrhea. Like to try immodium. Cough has improved. She has mild chest discomfort at the left side where pacemaker was implanted. PHYSICAL EXAMINATION: Temperature is 97.6, pulse 70, respirations 18, blood pressure 126/61, oxygen saturation 93% on 3 liters nasal cannula. Heart: Normal S1, S2, regular. Lungs: Diminished breath sounds at bases but otherwise no crackles. Abdomen: Obese, soft, nontender. Extremities: Pitting edema 1+ bilaterally. Left chest wall dressing, pacemaker site. IMPRESSION: 1. Staphylococcus aureus bacteremia with septic shock, resolved. Has finished 14 days of IV cefazolin. 2. Serratia marcescens pneumonia, started on intravenous (IV) Rocephin. The patient could be discharged home on by mouth cefdinir at a dose of 600 mg by mouth daily for 10 days. 3. Elevated levels of Beta-1,3D Glucan. Not sure of the significance of whether she has a fungal pneumonia or this is a false-positive test. I will obtain a sputum for fungus and cytology for Pneumocystis pneumonia (PCP) for tomorrow. PLAN: The patient does not need to finish IV antibiotics at home. Her peripherally inserted central catheter (PICC) line will be discontinued upon discharge, and she will be switched to cefdinir 300 mg by mouth twice a day for 10 days. The patient was also given Imodium for diarrhea as needed. Gastrointestinal (GI) panel on January 16 was negative. This is antibiotic associated. She was encouraged to eat yogurt and take probiotics. [facility]
--- NOTE | 2019-01-20 22:27 | IPNPDOC ---
Subjective Date Seen The patient was seen on 01/20/19. Subjective Chief Complaint/HPI 73f with hx of dm, afib, admitted initially with staph bacteremia, then complicated by serratia pna. pt remains hypoxic requiring supplemental oxygen. She otherwise is feeling better. Constitutional: Reports: Fever, Malaise Eyes: Denies: Pain, Vision change ENT: Denies: Head Aches, Ear Pain, Dysphagia Skin: Denies: Rash, Lesions, Breakdown Pulmonary: Reports: Dyspnea, Cough Cardiovascular: Denies: Chest Pain, Palpitations, Orthopnea, Paroxysmal Noc. Dyspnea, Lt Headedness Gastrointestinal: Denies: Nausea, Vomiting, Abdominal Pain, Diarrhea, Constipation Genitourinary: Denies: Dysuria, Frequency, Incontinence, Retention Hematologic: Denies: Bruising, Bleeding Excessively Musculoskeletal: Denies: Neck Pain, Back Pain, Joint Pain, Muscle Pain, Spasms Neurological: Denies: Weakness, Numbness, Change in speech, Confusion Psych: Reports: Mood Normal; Denies: Depression, Memory Issues Objective Physical Examination General Exam: Positive: Alert, Cooperative, Moderate Distress (due to leg pain/cramps), Other ([place]) Eye Exam: Positive: PERRLA, Conjunctiva & lids normal, EOMI ENT Exam: Positive: Atraumatic, Other ENT (dry lips, oral mucosa tachy/dry; upper dentures present) Neck Exam: Positive: Supple, +2 carotid pulse wo bruit Chest Exam: Positive: Clear to auscultation, Normal air movement, Other (right chest wall infusion port (accessed in ED)); Negative: Rales, Rhonchi, Wheezing, Diminished Heart Exam: Positive: Rate Normal, Regular Rhythm (between 64-70 with betablocker on board), Murmurs Telemetry: Positive: No significant arrhythmia, Sinus Abdomen Exam: Positive: Normal bowel sounds, Soft (NT ND ; no tenderness in RUQ, no smith sign, no guarding, no rebound, no rigidity) Extremity Exam: Positive: Normal pulses, Other (no swelling or todd sign bilaterally; ); Negative: Clubbing, Cyanosis, Edema Skin Exam: Positive: Rash (bilateral groin with yeast erythema), Other skin issue (turgor poor with tenting; no mottling , no diaphroesis) Neuro Exam: Positive: Normal Speech, Sensation Intact, Cranial Nerves 3-12 NL Psych Exam: Positive: Mental status NL, Mood NL, Oriented x 3 Assessment /Plan Assessment 73f with afib and dm, admitted with staph sepsis now with serratia pna staph sepsis resolved completed ancef serratia pna remains hypoxic arranging for home o2 discussed with ID can complete the 10 days with po omnicef elevated fungicell, need to rule out pcp? dm diabetic diet fs and sliding scale afib continue rate control and AC Problems (1) Sepsis Status: Acute (2) Multiple myeloma Status: Acute Plan/VTE VTE Prophylaxis Ordered?: Yes VS, I&O, 24H, Fishbone Vital Signs/I&O Vital Signs Date Time Temp Pulse Resp B/P (MAP) Pulse Ox O2 Delivery O2 Flow Rate FiO2 01/20/19 21:31 100 127/68 01/20/19 21:31 20 01/20/19 20:00 97.1 93 3.0 01/19/19 18:18 50 I&O- Last 24 Hours up to 6 AM 01/20/19 06:00 Intake Total 770 ml Output Total 1550 ml Balance -780 ml Laboratory Data 24H LABS Laboratory Tests 2 01/20/19 05:00: Nucleated Red Blood Cells % (auto) 0.0, Prothrombin Time 17.1H, Prothromb Time International Ratio 1.42, Anion Gap 3L, Glomerular Filtration Rate 49.5, Blood Urea Nitrogen 14, Creatinine 1.15, Sodium Level 139, Potassium Level 4.9, Chloride Level 105, Carbon Dioxide Level 31, Calcium Level 8.5L, C-Reactive Protein, Quantitative 7.40H 01/20/19 11:56: Bedside Glucose (Misc Panel) 86 01/20/19 18:00: Bedside Glucose (Misc Panel) 134H 01/20/19 20:59: Bedside Glucose (Misc Panel) 93 CBC/BMP Laboratory Tests 01/20/19 05:00 Red Blood Count 3.16 L, Mean Corpuscular Volume 102.8 H, Mean Corpuscular Hemog lobin 30.7, Mean Corpuscular Hemoglobin Concent 29.8 L, Red Cell Distribution Width 17.1 H, Calcium Level 8.5 L Microbiology Microbiology 01/16/19 Blood Culture - Preliminary, Resulted No Growth after 72 hours. All specime... 01/14/19 Blood Culture - Final, Complete NO GROWTH AFTER 5 DAYS 01/14/19 Blood Culture - Final, Complete NO GROWTH AFTER 5 DAYS 01/16/19 Gastrointestinal Tract Panel (PCR) - Final, Complete 01/16/19 Gram Stain - Final, Complete 01/16/19 Sputum Culture - Final, Complete Serratia Marcescens ELEN MEDINA MD Jan 20, 2019 22:27
--- NOTE | 2019-01-20 23:51 | ECGEPIP ---
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 ATRIAL FIBRILLATION WAS NOTED Electronically Signed on 01-20-2019 23:51:15 EDT by Jay Jay Oswald
--- NOTE | 2019-01-20 23:53 | ECGEPIP ---
[facility] Test Date: 2019-01-19 Pat Name: ISMAEL MONGE Department: Room: [place] [address] Gender: Female Branch Specialist: GRACE : 1945 Requested By: Fritz Oconnell Order Number: [id number] Reading MD: Jay Jay Oswald Measurements Intervals [place] Rate: 69 P: 207 GA: 202 QRS: 39 QRSD: 88 T: 93 QT: 389 QTc: 419 Interpretive Statements ELECTRONIC ATRIAL PACEMAKER LOW QRS VOLTAGE IN PRECORDIAL LEADS PRIOR TRACING ON 01/18/2019 AT 3:48 P.M., ELECTRONIC VENTRICULAR PACEMAKER ACTIVITY WAS NOTED Electronically Signed on 01-20-2019 23:53:14 EDT by Jay Jay Oswald
[2019-01-21] VITALS: BP 138/69
[2019-01-21] MEDS: ACETAMINOPHEN TAB 650MG DOSE (2X325MG) PO PRN (02:56)
[2019-01-21] MEDS: LORazepam 1 MG TAB PO PRN ×2 (02:56→10:17)
[2019-01-21 04:00] VITALS: BP 137/67
[2019-01-21] MEDS: LEVOTHYROXINE 75MCG TABLET (0.075MG) PO SCH (05:21)
[2019-01-21] MEDS: SODIUM CHLORIDE 0.9% INJ 10 ML SYR IV SCH (05:33)
[2019-01-21 05:44] LABS: HEMATOCRIT 31.2 % (36.0-47.0); HEMOGLOBIN 9.4 g/dl (12.0-15.5); MEAN CORPUSCULAR HGB CONC 30.1 g/dl (32.0-36.5); MEAN CORPUSCULAR VOLUME 106.1 fl (80.0-96.0); PLATELET COUNT, AUTOMATED 192 10^3/uL (150-450); RED BLOOD COUNT 2.94 10^6/uL (4.00-5.40); WHITE BLOOD COUNT 6.3 10^3/uL (4.0-10.0)
[2019-01-21 05:55] LABS: INR 1.75; PROTHROMBIN TIME 20.2 SECONDS (11.8-14.0)
[2019-01-21 06:00] VITALS: BP 137/67
[2019-01-21] MEDS ORDERED: SODIUM CHLORIDE HYPERTONIC 3% 15ML NEB SOL NEB ONE (06:00)
[2019-01-21 06:27] LABS: CALCIUM LEVEL 8.4 MG/DL (8.8-10.2); CREATININE FOR GFR 1.18 MG/DL (0.55-1.30); GLOMERULAR FILTRATION RATE 48.1 (>39); POTASSIUM SERUM 5.1 MEQ/L (3.5-5.1)
[2019-01-21] MEDS: HumaLOG INSULIN (NovoLOG) PER UNIT SC SCH ×2 (07:30→13:10)
[2019-01-21] MEDS: IPRATROPIUM 0.5MG/ALBUTEROL 2.5MG INH SOL UD 3ML (DUONEB)(J7620) NEB SCH (08:00)
[2019-01-21] MEDS: MULTIVITAMINS/MINERALS THERAP 1 TAB PO SCH (10:18)
[2019-01-21] MEDS: TORSEMIDE 20 MG TAB PO SCH (10:18)
[2019-01-21] MEDS: FLECAINIDE 50MG TABLET PO SCH (10:19)
[2019-01-21] MEDS: PANTOPRAZOLE 40MG TAB (PROTONIX) PO SCH (10:19)
[2019-01-21] MEDS: VITAMIN D 1,000 INTERNATIONAL UNITS TABLET PO SCH (10:19)
[2019-01-21 10:21] VITALS: BP 148/72
[2019-01-21] MEDS: BISOPROLOL FUMARATE 10 MG TAB PO SCH (10:21)
[2019-01-21 10:24] VITALS: BP 138/72
[2019-01-21] MEDS ORDERED: FLEC25TA PO (11:16)
[2019-01-21] MEDS ORDERED: CEFD1CAP8 PO (11:16)
[2019-01-21] MEDS ORDERED: TORS20TA2 PO (11:16)
[2019-01-21] MEDS: guaiFENesin SYRUP 200 MG/10 ML UDC PO PRN (13:11)
[2019-01-21] MEDS: ONDANSETRON 4MG/2ML VIAL (J2405) IV PRN (13:11)
[2019-01-21] MEDS: LOPERAMIDE 2 MG CAP PO PRN (13:12)
--- NOTE | 2019-01-21 19:34 | DS.PDOC ---
Discharge Summary General Date of Admission Jan 01, 2019 at 17:19 Date of Discharge 01/21/19 Discharge Summary CHIEF COMPLAINT: Sepsis. HOSPITAL COURSE: 73f with hx of dm, afib, dchf, multiple myeloma admitted with leg pain and weakness and found to be in septic shock due to staphycoccal bacteremia. She was admitted to the ICU where she was treated with fluids, pressors and antibiotics. She completed a course of ancef for MSSA bacteremia. Endocarditis was ruled out. Course was further complicated by rapid afib, pauses eventually leading to pacemaker placement, hypoxia due to serratia pneumonia treated with ceftriaxone, and luke. DISCHARGE MEDICATIONS: Please see below. ALLERGIES: Please see below. PHYSICAL EXAMINATION ON DISCHARGE: General Exam: Positive: Alert, Cooperative, Moderate Distress (due to leg pain/cramps), Other ([place]) Eye Exam: Positive: PERRLA, Conjunctiva & lids normal, EOMI ENT Exam: Positive: Atraumatic, Other ENT (dry lips, oral mucosa tachy/dry; upper dentures present) Neck Exam: Positive: Supple, +2 carotid pulse wo bruit Chest Exam: Positive: Clear to auscultation, Normal air movement, Other (right chest wall infusion port (accessed in ED)); Negative: Rales, Rhonchi, Wheezing, Diminished Heart Exam: Positive: Rate Normal, Regular Rhythm (between 64-70 with betablocker on board), Murmurs Telemetry: Positive: No significant arrhythmia, Sinus Abdomen Exam: Positive: Normal bowel sounds, Soft (NT ND ; no tenderness in RUQ, no smith sign, no guarding, no rebound, no rigidity) Extremity Exam: Positive: Normal pulses, Other (no swelling or todd sign bilaterally; ); Negative: Clubbing, Cyanosis, Edema Skin Exam: Positive: Rash (bilateral groin with yeast erythema), Other skin issue (turgor poor with tenting; no mottling , no diaphroesis) Neuro Exam: Positive: Normal Speech, Sensation Intact, Cranial Nerves 3-12 NL Psych Exam: Positive: Mental status NL, Mood NL, Oriented x 3 LABORATORY DATA: Please see below. ACTIVITY: [As tolerated]. DIET: [diabetic] DISCHARGE PLAN: [home] DISPOSITION: Home, Self-Care. DISCHARGE INSTRUCTIONS: 1. f/u with hematology and pulmonology. DISCHARGE CONDITION: [Stable]. TIME SPENT ON DISCHARGE: Greater than [45] minutes. Vital Signs/I&Os Vital Signs Date Time Temp Pulse Resp B/P (MAP) Pulse Ox O2 Delivery O2 Flow Rate FiO2 01/21/19 10:27 3.0 01/21/19 10:24 97.4 70 18 138/72 (94) 95 01/19/19 18:18 50 I&O- Last 24 Hours up to 6 AM 01/21/19 06:00 Intake Total 1500 ml Output Total 1025 ml Balance 475 ml Laboratory Data Labs 24H Laboratory Tests 2 01/20/19 20:59: Bedside Glucose (Misc Panel) 93 01/21/19 05:19: Nucleated Red Blood Cells % (auto) 0.0, Prothrombin Time 20.2H, Prothromb Time International Ratio 1.75, Anion Gap 3L, Glomerular Filtration Rate 48.1, Blood Urea Nitrogen 15, Creatinine 1.18, Sodium Level 140, Potassium Level 5.1, Chloride Level 106, Carbon Dioxide Level 31, Calcium Level 8.4L 01/21/19 12:16: Bedside Glucose (Misc Panel) 127H CBC/BMP Laboratory Tests 01/21/19 05:19 Red Blood Count 2.94 L, Mean Corpuscular Volume 106.1 H, Mean Corpuscular H emoglobin 32.0, Mean Corpuscular Hemoglobin Concent 30.1 L, Red Cell Distribution Width 17.5 H, Calcium Level 8.4 L FSBS Laboratory Tests Test 01/20/19 20:59 01/21/19 12:16 Range/Units Bedside Glucose (Misc Panel) 93 127 83-110 MG/DL Microbiology Microbiology 01/16/19 Blood Culture - Final, Complete NO GROWTH AFTER 5 DAYS 01/14/19 Blood Culture - Final, Complete NO GROWTH AFTER 5 DAYS 01/14/19 Blood Culture - Final, Complete NO GROWTH AFTER 5 DAYS 01/16/19 Gastrointestinal Tract Panel (PCR) - Final, Complete 01/21/19 Fungal Smear, Received Pending 01/21/19 Fungal Culture, Received Pending 01/16/19 Gram Stain - Final, Complete 01/16/19 Sputum Culture - Final, Complete Serratia Marcescens Discharge Medications Scheduled Bisoprolol Fumarate (Bisoprolol Fumarate) 10 Mg Tab, 10 MG PO BID, (Reported) Cefdinir (Cefdinir) 300 Mg Capsule, 1 CAP PO BID Cholecalciferol (Vitamin D3) (Vitamin D3) 1,000 Unit Tab, 2,000 UNIT PO DAILY, (Reported) Colesevelam HCl (Welchol) 3.75 Gm Powd.pack, 3.75 GM PO DAILY, (Reported) Dapagliflozin Propanediol (Farxiga) 10 Mg Tab, 5 MG PO DAILY, (Reported) Flecainide Acetate (Flecainide Acetate) 50 Mg Tablet, 100 MG PO BID Levothyroxine Sodium (Synthroid) 75 Mcg Tab, 75 MCG PO DAILY, (Reported) Multivitamins (Thera M Plus Tablet) 1 Tab Tab, 1 TAB PO DAILY, (Reported) Rivaroxaban (Xarelto) 20 Mg Tab, 20 MG PO QPM, (Reported) Sitagliptin Phosphate (Januvia) 100 Mg Tab, 100 MG PO ACS, (Reported) Torsemide (Torsemide) 20 Mg Tablet, 20 MG PO DAILY Scheduled PRN Lorazepam (Ativan) 1 Mg Tab, 1 MG PO QID PRN for ANXIETY/AGITATION, (Reported) Allergies Coded Allergies: shellfish derived (Verified Allergy, Severe, swelling, 10/26/18) Penicillins (Verified Allergy, Intermediate, rash, 10/26/18) latex (Verified Allergy, Intermediate, rash, 10/26/18) codeine (Verified Adverse Reaction, Mild, upset stomach, 10/26/18) dabigatran etexilate (Verified Adverse Reaction, Mild, itching, 10/26/18) ELEN MEDINA MD Jan 21, 2019 19:34
== END 2019-01-21 16:01 | disposition home or self-care (01) | DRG 171 ==
LOC: EDBD 15:57 → M ED 15:57 → M ED INP 17:19 → M ICU 20:05 → M PCU 01-05 23:11 → M MS5PR 01-07 14:20 → M PCU 01-09 21:33 → M ICU 01-15 18:26 → M PCU 01-18 15:57
PROVIDERS: ADMIT Family Medicine; ATTEND Hospitalist
PROC: 05PY33Z Removal of Infusion Device from Upper Vein, Percutaneous Approach (ICD-10-PCS; 2019-01-04)
PROC: B246ZZ4 Ultrasonography of Right and Left Heart, Transesophageal (ICD-10-PCS; 2019-01-04)
PROC: 02HV33Z Insertion of Infusion Device into Superior Vena Cava, Percutaneous Approach (ICD-10-PCS; principal; 2019-01-07)
PROC: 5A2204Z Restoration of Cardiac Rhythm, Single (ICD-10-PCS; 2019-01-13)
PROC: 0JH606Z Insertion of Pacemaker, Dual Chamber into Chest Subcutaneous Tissue and Fascia, Open Approach (ICD-10-PCS; 2019-01-18)
PROC: 02HK3JZ Insertion of Pacemaker Lead into Right Ventricle, Percutaneous Approach (ICD-10-PCS; 2019-01-18)
PROC: 02H63JZ Insertion of Pacemaker Lead into Right Atrium, Percutaneous Approach (ICD-10-PCS; 2019-01-18)
DX: T82.7XXA Infection and inflammatory reaction due to other cardiac and vascular devices, implants and grafts, initial encounter (principal); R65.21 Severe sepsis with septic shock; A41.01 Sepsis due to Methicillin susceptible Staphylococcus aureus; J15.6 Pneumonia due to other Gram-negative bacteria; I13.0 Hypertensive heart and chronic kidney disease with heart failure and stage 1 through stage 4 chronic kidney disease, or unspecified chronic kidney disease; J96.01 Acute respiratory failure with hypoxia; B35.6 Tinea cruris; M81.0 Age-related osteoporosis without current pathological fracture; J96.02 Acute respiratory failure with hypercapnia; N17.9 Acute kidney failure, unspecified; C90.00 Multiple myeloma not having achieved remission; I50.32 Chronic diastolic (congestive) heart failure; E11.22 Type 2 diabetes mellitus with diabetic chronic kidney disease; R04.2 Hemoptysis; I49.5 Sick sinus syndrome; I48.0 Paroxysmal atrial fibrillation; E66.9 Obesity, unspecified; N18.3 Chronic kidney disease, stage 3 (moderate); N39.0 Urinary tract infection, site not specified; N85.00 Endometrial hyperplasia, unspecified; N93.8 Other specified abnormal uterine and vaginal bleeding; E78.5 Hyperlipidemia, unspecified; E55.9 Vitamin D deficiency, unspecified; Z79.4 Long term (current) use of insulin; Z79.01 Long term (current) use of anticoagulants; Z79.899 Other long term (current) drug therapy; Z88.0 Allergy status to penicillin; Z88.5 Allergy status to narcotic agent; Z91.040 Latex allergy status; Z87.891 Personal history of nicotine dependence; Y83.1 Surgical operation with implant of artificial internal device as the cause of abnormal reaction of the patient, or of later complication, without mention of misadventure at the time of the procedure; Z68.34 Body mass index [BMI] 34.0-34.9, adult; Z85.118 Personal history of other malignant neoplasm of bronchus and lung; Z90.2 Acquired absence of lung [part of]; T46.4X5A Adverse effect of angiotensin-converting-enzyme inhibitors, initial encounter

== ENCOUNTER 2019-01-25 07:53 | Inpatient (IN) | payer OTHER, MEDICARE ==
[~2019-01-25] VITALS: Ht 157.5 cm; Wt 80.7 kg
[~2019-01-25 07:53] MED LIST changes: +FLEC25TA PO; +TORS20TA2 PO; +WELC3.75 PO
[2019-01-25] MEDS ORDERED: ACETAMINOPHEN 500 MG TAB PO ONE (08:30)
[2019-01-25] MEDS ORDERED: TORS20TA2 PO ×2 (08:35→10:42)
[2019-01-25] MEDS: CHLORHEXIDINE GLUCONATE 0.12 % 15ML UDC (PERIDEX ORAL RINSE) MT SCH ×2 (09:00→21:36)
--- NOTE | 2019-01-25 09:08 | REP ---
Clinical: Sepsis. Shock. Technique: Semiupright portable AP. Comparison: 01/19/2019. Findings: The patient is status post pacemaker. Findings suggest cardiomegaly with pulmonary vascular congestion including right pleural effusion and scattered infiltrates. Differential diagnosis would include multifocal pneumonia. No pneumothorax. Skeletal structures stable. Impression: Cardiomegaly with CHF/pulmonary edema versus multifocal pneumonia. Electronically Signed by Bert Watts MD 01/25/2019 09:00 A
[2019-01-25 09:25] LABS: BASO % 0.3 % (0.0-1.0); EOS % 0.5 % (0.0-3.0); HEMATOCRIT 33.5 % (36.0-47.0); HEMOGLOBIN 10.6 g/dl (12.0-15.5); LYMPH # 0.8 10^3/uL (1.5-4.5); LYMPH % 12.3 % (24.0-44.0); MEAN CORPUSCULAR HEMOGLOBIN 32.7 pg (27.0-33.0); MEAN CORPUSCULAR HGB CONC 31.6 g/dl (32.0-36.5); MEAN CORPUSCULAR VOLUME 103.4 fl (80.0-96.0); MONO # 0.5 10^3/uL (0.0-0.8); NEUTROPHILS # 4.8 10^3/uL (1.8-7.7); NEUTROPHILS % 78.2 % (36.0-66.0); PLATELET COUNT, AUTOMATED 184 10^3/uL (150-450); RED BLOOD COUNT 3.24 10^6/uL (4.00-5.40); WHITE BLOOD COUNT 6.1 10^3/uL (4.0-10.0)
[2019-01-25] MEDS ORDERED: D5W/0.45% SODIUM CHLORIDE 1,000 ML IV SCH (09:30)
[2019-01-25 09:42] LABS: INR 1.13; PROTHROMBIN TIME 14.2 SECONDS (11.8-14.0)
[2019-01-25 09:43] LABS: PARTIAL THROMBOPLASTIN TIME 31.8 SECONDS (25.0-38.4)
[2019-01-25 09:58] LABS: APPEARANCE, URINE CLEAR (CLEAR); BACTERIA, URINE AUTO 1+ (NEGATIVE); BILIRUBIN, URINE AUTO NEGATIVE (NEGATIVE); BLOOD, URINE BLOOD 2+ (NEGATIVE); COLOR, URINE YELLOW (YELLOW); GLUCOSE, URINE (UA) AUTO 1+ mg/dL (NEGATIVE); KETONE, URINE AUTO NEGATIVE (NEGATIVE); LEUKOCYTE ESTERASE, URINE AUTO NEGATIVE (NEGATIVE); MUCUS, URINE SMALL (NEGATIVE); NITRITE, URINE AUTO NEGATIVE (NEGATIVE); PROTEIN, URINE AUTO 1+ mg/dL (NEGATIVE); RBC, URINE AUTO 8 /HPF (0-3); SPECIFIC GRAVITY URINE AUTO 1.005 (1.002-1.035); SQUAMOUS EPITHELIAL CELL UR AU 0 /HPF (0-6); UROBILINOGEN, URINE AUTO 0.2 mg/dL (0.0-2.0); WBC, URINE AUTO 1 /HPF (0-3)
--- NOTE | 2019-01-25 09:59 | REP ---
Clinical: Hypoxia. Technique: Axial noncontrast images from the thoracic inlet to the upper abdomen with coronal and sagittal re-formations. Comparison: 01/16/2019, 09/07/2017 Findings: Wnrrfhet-[id number] bilateral pleural effusions along with ill-defined scattered infiltrates, ground-glass opacities, and increased coarsened interstitial markings are all increased compared to prior examination. Findings may reflect CHF as well as multifocal pneumonia and progressive changes related to malignancy/metastatic disease. Underlying adenopathy cannot be excluded. No pneumothorax. Atherosclerotic changes to the thoracic aorta and coronary arteries identified. The heart is normal size with pacemaker leads again noted. Limited upper abdomen demonstrates normal bilateral adrenal glands along with hepatic hypodensities which may reflect cysts. Impression: Findings described above and increase since recent prior examination dated 01/16/2019. Differential diagnosis includes CHF with pulmonary edema and effusions versus multifocal pneumonia versus progressive changes related to malignancy/metastatic disease. Electronically Signed by Bert Watts MD 01/25/2019 09:50 A
[2019-01-25] MEDS ORDERED: VANCOMYCIN HCL 1,000 MG, VIAL MATE ADAPTER 1 EACH in D5W 250 ML IV ONE (10:00)
[2019-01-25] MEDS ORDERED: CEFEPIME HCL 2 GM in D5W MINI-BAG PLUS 50 ML IV ONE (10:00)
[2019-01-25] MEDS ORDERED: FUROSEMIDE 40 MG/4 ML VIAL (J1940) IV ONE (10:00)
[2019-01-25] MEDS ORDERED: DEXTROSE 50% 50 ML SYRINGE IV STA (10:05)
[2019-01-25 10:09] LABS: ALBUMIN 2.6 GM/DL (3.2-5.2); ALT/SGPT 17 U/L (12-78); AMYLASE 33 U/L (25-115); BILIRUBIN,DIRECT 0.3 MG/DL (0.0-0.2); BILIRUBIN,TOTAL 0.7 MG/DL (0.2-1.0); BLOOD UREA NITROGEN 15 MG/DL (7-18); CALCIUM LEVEL 8.6 MG/DL (8.8-10.2); CARBON DIOXIDE LEVEL 33 MEQ/L (21-32); CHLORIDE LEVEL 102 MEQ/L (98-107); CK-MB VALUE MASS 1.4 NG/ML (<3.6); CPK CREATINE PHOSPHOKINASE 25 U/L (26-192); CREATININE FOR GFR 1.03 MG/DL (0.55-1.30); GLOMERULAR FILTRATION RATE 56.2 (>39); GLUCOSE, FASTING 67 MG/DL (70-100); POTASSIUM SERUM 3.1 MEQ/L (3.5-5.1); SODIUM LEVEL 141 MEQ/L (136-145); TROPONIN I < 0.02 NG/ML (< 0.10)
[2019-01-25 10:32] LABS: NT-PRO BNP 14573 PG/ML (<125)
[2019-01-25] MEDS ORDERED: FLEC25TA PO (10:42)
[2019-01-25] MEDS ORDERED: CEFD1CAP8 PO (10:42)
[2019-01-25] MEDS ORDERED: INSUDET SC (10:42)
[2019-01-25] MEDS ORDERED: REVL10CA2 PO (10:43)
[2019-01-25] MEDS: IPRATROPIUM 0.5MG/ALBUTEROL 2.5MG INH SOL UD 3ML (DUONEB)(J7620) NEB SCH ×4 (12:00→23:35)
[2019-01-25] MEDS: MULTIVITAMINS/MINERALS THERAP 1 TAB PO SCH (12:08)
[2019-01-25] MEDS: FAMOTIDINE 20 MG TAB PO SCH (12:08)
[2019-01-25] MEDS: FLECAINIDE 50MG TABLET PO SCH ×2 (12:08→21:36)
[2019-01-25] MEDS: VITAMIN D 1,000 INTERNATIONAL UNITS TABLET PO SCH (12:08)
[2019-01-25] MEDS ORDERED: DEXTROSE 50% 50 ML SYRINGE IV PRN ×2 (13:45→14:00)
[2019-01-25] MEDS ORDERED: GLUCAGON FOR INJ 1 MG VIAL (J1610) SC PRN (13:45)
[2019-01-25] MEDS ORDERED: GLUCOSE 4 GM CHEW TABLET PO PRN (13:45)
--- NOTE | 2019-01-25 13:55 | HPEPDOC ---
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 fib, on bisoprolol and is at auto presented to the emergency department with 3 of worsening shortness of breath as well as cough with diarrhea. The patient states that she was recently discharged from the hospital because of MSSA bacteremia for which she was treated with antibiotics in the hospital, but after she was discharged. She continued to have increasing shortness of breath with cough along with diarrhea. The patient states that she has had multiple episodes of diarrhea every day. She was continent. No blood reported in the stool. Stated that she was also coughing which is productive with whitish yellowish sputum. Denies any fever, any tinnitus, any chills. In the ER. She required to be put on 5 L of nasal cannula and was saturating in the 90s. The patient was also given IV Lasix along with IV antibiotics because the CAT scan could not rule out CHF versus pneumonia. Patient states she is on Resimed for multiple myeloma. We kept on hold right now. She also was hypoglycemic as she takes Levemir 10 twice a day and has not been eating poorly and still taking her Levemir. She has been kept on frequent glucose checks and when necessary D50. All the cultures have been sent in the ER along with activation to be continued on IV vancomycin and IV cefepime and sputum cultures as well as blood cultures have been initiated. 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 diastolic CHF (EF 70% on Echo 2014) Heart murmur: Mitral valve , aortic valve vitamin D Deficiency Diabetes on intermission coordinator insulin - well controlled lung cancer [id number] (stage 1 B moderately differentiated adenocarcinoma Multiple myeloma - under active treatment osteoporosis Surgical History S/P ablation 2011 S/P right thorascopic lobectomy 2015 S/P bronchoscopy Right subclavian infusion port 04/2017 T&A Left knee surgery parathyroidectomy 2012 Family History Significant Family History: Heart disease, Hypertension father in MVA mother with afib age 25 (now ) 2 brother with afib Social History Smoker: former Smoker (quit 1984 ) Alcohol: Denies 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 Pertinent review of systems was done and all the pertinent positive findings as as per HPI is negative PHYSICAL EXAMINATION: General: The patient is awake, alert, oriented x3, sitting up in the bed in no apparent distress. Head and Neck Exam: Extraocular muscles intact. Pupils equally round and reactive to light. Mucous membranes are moist. Neck is supple. There is no jugular venous distention (JVD). Cardiovascular: S1 and S2, regular rate. Trace edema of the bilateral lower extremities. Respiratory: Mild inspiratory crackles at the right base, mildly decreased breath sounds at the left side. Abdomen: Soft. Positive bowel sounds. Nontender. No organomegaly. Genitourinary: Indwelling Lopez catheter was noted. Musculoskeletal: Clubbing of the fingernails, no cyanosis was noted. 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 Power is 5/5 in all extremities. Vital Sign - Last 24 Hours 01/25/19 01/25/19 01/25/19 01/25/19 08:04 08:08 08:11 08:12 Temp 96.9 Pulse 75 73 Resp 24 B/P (MAP) 248/126 (166) 153/68 (96) 153/68 (96) Pulse Ox 90 91 O2 Delivery Room Air Nasal Cannula O2 Flow Rate 4.0 01/25/19 01/25/19 01/25/19 01/25/19 08:16 08:23 08:30 08:38 Pulse 80 79 B/P (MAP) 149/77 (101) 158/79 (105) Pulse Ox 94 96 O2 Delivery Nasal Cannula Nasal Cannula O2 Flow Rate 6.0 6.0 01/25/19 01/25/19 01/25/19 01/25/19 08:46 08:53 09:00 09:08 Pulse 84 79 B/P (MAP) 152/78 (102) 163/85 (111) Pulse Ox 95 O2 Delivery Nasal Cannula O2 Flow Rate 6.0 01/25/19 01/25/19 01/25/19 01/25/19 09:23 09:30 09:38 09:45 Pulse 81 73 B/P (MAP) 174/95 (121) 176/93 (120) Pulse Ox 94 96 O2 Delivery Nasal Cannula Nasal Cannula O2 Flow Rate 6.0 6.0 01/25/19 01/25/19 01/25/19 01/25/19 09:53 10:00 10:08 10:17 Pulse 76 80 B/P (MAP) 156/93 (114) 151/95 (113) Pulse Ox 96 94 O2 Delivery Nasal Cannula Nasal Cannula O2 Flow Rate 6.0 6.0 01/25/19 01/25/19 01/25/19 01/25/19 10:32 10:45 10:47 11:00 Pulse 81 78 B/P (MAP) 141/71 (94) 135/76 (95) Pulse Ox 98 98 O2 Delivery Nasal Cannula Nasal Cannula O2 Flow Rate 6.0 6.0 01/25/19 01/25/19 01/25/19 01/25/19 11:02 11:15 11:17 11:30 Pulse 96 77 B/P (MAP) 134/81 (98) 136/81 (99) Pulse Ox 98 97 O2 Delivery Nasal Cannula Nasal Cannula O2 Flow Rate 5.0 5.0 01/25/19 01/25/19 01/25/19 01/25/19 11:32 11:47 12:00 12:02 Pulse 78 78 79 B/P (MAP) 142/74 (96) Pulse Ox 97 97 97 O2 Delivery Nasal Cannula Nasal Cannula Nasal Cannula O2 Flow Rate 5.0 4.0 4.0 01/25/19 01/25/19 01/25/19 01/25/19 12:15 12:17 12:30 12:32 Pulse 81 83 B/P (MAP) 156/99 (118) 162/81 (108) Pulse Ox 98 99 O2 Delivery Nasal Cannula Nasal Cannula O2 Flow Rate 4.0 4.0 01/25/19 01/25/19 01/25/19 01/25/19 12:45 12:47 13:00 13:02 Pulse 82 76 B/P (MAP) 155/77 (103) 158/69 (98) Pulse Ox 97 98 O2 Delivery Nasal Cannula Nasal Cannula O2 Flow Rate 4.0 4.0 01/25/19 01/25/19 13:15 13:17 Pulse 69 B/P (MAP) 156/77 (103) Pulse Ox 97 O2 Delivery Nasal Cannula O2 Flow Rate 4.0 Laboratory Tests 01/25/19 09:08 Red Blood Count 3.24 L, Mean Corpuscular Volume 103.4 H, Mean Corpuscular Hemoglobin 32.7, Mean Corpuscular Hemoglobin Concent 31.6 L, Red Cell Distribution Width 17.9 H, Neutrophils (%) (Auto) 78.2 H, Lymphocytes (%) (Auto) 12.3 L, Monocytes (%) (Auto) 8.0 H, Eosinophils (%) (Auto) 0.5, Basophils (%) (Auto) 0.3, Neutrophils # (Auto) 4.8, Lymphocytes # (Auto) 0.8 L, Monocytes # (Auto) 0.5, Eosinophils # (Auto) 0.0, Basophils # (Auto) 0.0 CT chest findings increase since recent prior examination dated 01/16/2019. Differential diagnosis includes CHF with pulmonary edema and effusions versus multifocal pneumonia versus progressive changes related to malignancy/metastatic disease Assessment and plan 1. Hypoxic respiratory failure. Likely secondary to nosocomial pneumonia versus CHF exacerbation. The patient was given 40 of IV Lasix and will be continued on 40 IV twice a day of Lasix right now. When necessary BiPAP has been placed in the setting off 07/01/35. The patient will be continued on Lasix 40 twice a day. Input output monitoring 1.5 L fluid restriction, 2 g sodium restriction. Sputum culture as well as blood culture has been initiated. The patient continues to be on IV vancomycin and IV meropenem. We'll continue to monitor the WBC count. CBC within normal limits and pro-calcitonin has been ordered 2. Hypokalemia. We will replace when necessary and check magnesium as well 3) CKD stage III : monitor vanc levels ; avoid nephrotoxic agents; hold ACEI for now. 4) acute exacerbation of diastolic heart failure. She continues to be on 40 twice a day of Lasix, beta osmel at a half dose. 2-D echo will be ordered as well 5) multiple myeloma - hold revlimid 6) Diabetes -currently hypoglycemic. We'll start on consistent carb diet . Patient was hypoglycemic that reason, patient has been kept on D50 when necessary, and frequent glucose checks. Levemer on hold . Hold januvia and Farxiga 7) paroxysmal Afib - continue with xarelto. Continue bisoprolol at half the dose 8) Hypothyroid - continue home dose synthroid CODE Status: full code DVT prophylaxis: not indicated as patient is on xarelto GI Prophylaxis: Pepcid The patient will be admitted to ICU. As patient has hypoxic respiratory failure will be requiring greater than to midnight and is at high risk of deterioration. Vital Signs Vital Signs Date Time Temp Pulse Resp B/P (MAP) Pulse Ox O2 Delivery O2 Flow Rate FiO2 01/25/19 13:17 69 97 Nasal Cannula 4.0 01/25/19 13:15 156/77 (103) 01/25/19 08:12 96.9 24 Laboratory Data Labs 24H Laboratory Tests 2 01/25/19 08:03: Bedside Glucose (Misc Panel) 79L 01/25/19 08:56: Bedside Glucose (Misc Panel) 73L 01/25/19 09:04: POC pH (Misc Panel) 7.416, POC Base Excess (Misc Panel) 7.0H, POC Saturated Percent O2 (Misc) 96, POC pO2 (Misc Panel) 85.0, POC pCO2 (Misc Panel) 49.6H, POC HCO3 (Misc Panel) 31.9H, POC Total CO2 (Misc Panel) 33.0H 01/25/19 09:08: Immature Granulocyte % (Auto) 0.7, White Blood Count 6.1, Red Blood Count 3.24L, Hemoglobin 10.6L, Hematocrit 33.5L, Mean Corpuscular Volume 103.4H, Mean Corpuscular Hemoglobin 32.7, Mean Corpuscular Hemoglobin Concent 31.6L, Red Cell Distribution Width 17.9H, Platelet Count 184, Neutrophils (%) (Auto) 78.2H, Lymphocytes (%) (Auto) 12.3L, Monocytes (%) (Auto) 8.0H, Eosinophils (%) (Auto) 0.5, Basophils (%) (Auto) 0.3, Neutrophils # (Auto) 4.8, Lymphocytes # (Auto) 0.8L, Monocytes # (Auto) 0.5, Eosinophils # (Auto) 0.0, Basophils # (Auto) 0.0, Nucleated Red Blood Cells % (auto) 0.0, Prothrombin Time 14.2H, Prothromb Time International Ratio 1.13, Activated Partial Thromboplast Time 31.8, Anion Gap 6L, Glomerular Filtration Rate 56.2, Lactic Acid Level 0.9, Calcium Level 8.6L, Aspartate Amino Transf (AST/SGOT) 21, Alanine Aminotransferase (ALT/SGPT) 17, Alkaline Phosphatase 142H, Total Bilirubin 0.7, Direct Bilirubin 0.3H, Total Creatine Kinase 25L, Creatine Kinase MB 1.4, Creatine Kinase MB Relative Index 5.60H, Troponin I < 0.02, C-Reactive Protein, Quantitative 1.00H, BI-Ccq-M-Type Natriuretic Peptide 61004G, Total Protein 6.0L, Albumin 2.6L, Albumin/Globulin Ratio 0.76L, Amylase Level 33 01/25/19 09:38: Urine Appearance CLEAR, Urine Color YELLOW, Urine pH 6.0, Urine Specific [place] 1.005, Urine Protein 1+H, Urine Glucose (UA) 1+H, Urine Ketones NEGATIVE, Urine Urobilinogen 0.2, Urine Bilirubin NEGATIVE, Urine Leukocyte Esterase NEGATIVE, Urine Blood 2+H, Urine Nitrite NEGATIVE, Urine WBC (Auto) 1, Urine RBC (Auto) 8H, Urine Hyaline Casts (Auto) 0, Urine Bacteria (Auto) 1+H, Urine Squamous Epithelial Cells 0, Urine Mucus (Auto) SMALL, Urine Sperm (Auto) 01/25/19 10:03: Bedside Glucose (Misc Panel) 38*L 01/25/19 10:44: Bedside Glucose (Misc Panel) 135H 01/25/19 12:07: Bedside Glucose (Misc Panel) 67L 01/25/19 13:10: Bedside Glucose (Misc Panel) 65L CBC/BMP Laboratory Tests 01/25/19 09:08 Red Blood Count 3.24 L, Mean Corpuscular Volume 103.4 H, Mean Corpuscular Hemoglobin 32.7, Mean Corpuscular Hemoglobin Concent 31.6 L, Red Cell Distribution Width 17.9 H, Neutrophils (%) (Auto) 78.2 H, Lymphocytes (%) (Auto) 12.3 L, Monocytes (%) (Auto) 8.0 H, Eosinophils (%) (Auto) 0.5, Basophils (%) (Auto) 0.3, Neutrophils # (Auto) 4.8, Lymphocytes # (Auto) 0.8 L, Monocytes # (Auto) 0.5, Eosinophils # (Auto) 0.0, Basophils # (Auto) 0.0 Microbiology Microbiology 01/25/19 Blood Culture, Received Pending 01/25/19 Blood Culture, Received Pending 01/25/19 Gastrointestinal Tract Panel (PCR) - Final, Complete 01/25/19 Urine Culture, Received Pending Home Medications Scheduled Bisoprolol Fumarate (Bisoprolol Fumarate) 10 Mg Tab, 10 MG PO BID Cefdinir (Cefdinir) 300 Mg Capsule, 300 MG PO BID Cholecalciferol (Vitamin D3) (Vitamin D3) 1,000 Unit Tab, 2,000 UNIT PO DAILY Colesevelam HCl (Welchol) 3.75 Gm Powd.pack, 3.75 GM PO DAILY Dapagliflozin Propanediol (Farxiga) 10 Mg Tab, 5 MG PO DAILY Flecainide Acetate (Flecainide Acetate) 50 Mg Tablet, 100 MG PO BID Insulin Detemir (Levemir) 100 Unit/1 Ml Vial, 10 UNITS SC QHS Lenalidomide (Revlimid) 10 Mg Capsule, 10 MG PO DAILY Levothyroxine Sodium (Synthroid) 75 Mcg Tab, 75 MCG PO DAILY Multivitamins (Thera M Plus Tablet) 1 Tab Tab, 1 TAB PO DAILY Rivaroxaban (Xarelto) 20 Mg Tab, 20 MG PO QPM Sitagliptin Phosphate (Januvia) 100 Mg Tab, 100 MG PO ACS Torsemide (Torsemide) 20 Mg Tablet, 20 MG PO BID Scheduled PRN Lorazepam (Ativan) 1 Mg Tab, 1 MG PO QID PRN for ANXIETY/AGITATION Allergies Coded Allergies: shellfish derived (Verified Allergy, Severe, swelling, 10/26/18) Penicillins (Verified Allergy, Intermediate, rash, 10/26/18) latex (Verified Allergy, Intermediate, rash, 10/26/18) dabigatran etexilate (Verified Allergy, Mild, itching, 01/25/19) codeine (Verified Adverse Reaction, Mild, upset stomach, 10/26/18) A-FIB/CHADSVASC A-FIB History Current/History of A-Fib/PAF?: Yes Current PO Anticoag Therapy: Yes Age/Risk Factor Scoring CHADSVASC: CHADSVASC Response (Comments) Value Age Risk Factor Age 65-74 years old 1 Gender Risk Factor Female 1 Hx of CHF Yes 1 Hx of HTN Yes 1 Hx of Diabetes Yes 1 Hx of Vascular Disease Yes 1 Total 6 Treatment Treatment ordered: Rivaroxaban BREEZY LEBLANC MD Jan 25, 2019 13:55
--- NOTE | 2019-01-25 13:56 | ECGEPIP ---
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
[2019-01-25 14:40] VITALS: BP 182/92
[2019-01-25] MEDS ORDERED: VANCOMYCIN HCL 750 MG, VIAL MATE ADAPTER 1 EACH in D5W 250 ML IV ONE (15:00)
--- NOTE | 2019-01-25 15:15 | PHACANCOPD ---
PHARMACY VANCOMYCIN DOSING Pt Demographics Demographics Patient Age:73 , Weight:79.600 , Gender: female Adjusted Body Weight Date: 01/25/19, Adjusted Body Weight: [61.9] Kg Events Past 24 Hours Events Past 24 Hours: NO: Dialysis, Diuretic Therapy, Change in CrCl, Fever, Elevation in WBC, Pending Diagnostics, Pending Procedures, Other Vancomycin Vancomycin indication: HCAP Vancomycin Target Ranges: 15-20 mcg/ml Vancomycin Load Y/N: Yes Load Dose Date Time Vancomycin Load Dose: 1.75G Date: 01/25/19 Time: 11:00 Vancomycin Dose Date: 01/25/19. Current Vancomycin Dose: [1g iv q12h] Intermittent Dosing?: No Labs Labs Item Value Date Time White Blood Count 6.1 10^3/uL 01/25/19 0908 C-Reactive Protein, Quantitative 1.00 MG/DL H 01/25/19 0908 Creatinine 1.03 MG/DL 01/25/19 0908 Micro Microbiology 01/25/19 Blood Culture, Received Pending 01/25/19 Blood Culture, Received Pending 01/25/19 Gastrointestinal Tract Panel (PCR) - Final, Complete 01/25/19 Urine Culture, Received Pending Creatinine Clearance Date:01/25/19. Creatinine Clearance: [~50ml/min calculated]. Pending Labs trough 01/26/19 @22:00 Assessment and Plan Maintaining Current Dose?: Yes Reason for dose change: No Dose Change Pharmacist Note Pharmacist Note Date: 01/25/19. Pharmacist note: Pt is a 73 year old female being treated for HCAP goal trough 15-20mcg/ml. The patient was last treated here at [facility] with vancomycin on 01/04/19. Previous dosing will be used to initiate current therapy. To achieve goal a 1.75g loading dose was started 01/25/19 @11. Maintenance therapy will consist of 1g IV q12h starting 01/25/19 @23:00. A trough is scheduled 01/26/19 @22:00. We will continue to monitor and adjust the dose as needed. PJ JIMENEZ [facility] Jan 25, 2019 15:15
[2019-01-25] MEDS: BISOPROLOL FUMARATE 10 MG TAB PO SCH (15:48)
[2019-01-25] MEDS ORDERED: POTASSIUM CHLORIDE 10 MEQ SR TABLET PO ONE (16:00)
[2019-01-25] MEDS ORDERED: FUROSEMIDE 40 MG/4 ML VIAL (J1940) IV SCH (17:00)
[2019-01-25] MEDS: LORazepam 1 MG TAB PO PRN (18:09)
[2019-01-25] MEDS: RIVAROXABAN 20 MG TAB (XARELTO) PO SCH (18:09)
[2019-01-25] MEDS ORDERED: LOPERAMIDE 2 MG CAP PO ONE (19:00)
[2019-01-25 20:00] VITALS: BP 146/72
[2019-01-25] MEDS ORDERED: LEVEMIR (INSULIN DETEMIR) 1 UNITS/0.01ML SC SCH (21:00)
[2019-01-25] MEDS ORDERED: CEFEPIME HCL 1 GM in D5W MINI-BAG PLUS 50 ML IV SCH (22:00)
[2019-01-25] MEDS ORDERED: ACETAMINOPHEN 500 MG TAB PO PRN (22:30)
[2019-01-25] MEDS ORDERED: oxyCODONE 5MG TAB PO ONE (22:30)
[2019-01-25] MEDS ORDERED: VANCOMYCIN HCL 1,000 MG, VIAL MATE ADAPTER 1 EACH in D5W 250 ML IV SCH (23:00)
[2019-01-26] VITALS (8 sets, daily range): BP systolic 131–166; BP diastolic 62–82; O2SAT 94
[2019-01-26] MEDS: CEFEPIME HCL 2 GM in D5W MINI-BAG PLUS 50 ML IV SCH ×3 (00:09→21:56)
[2019-01-26] MEDS: IPRATROPIUM 0.5MG/ALBUTEROL 2.5MG INH SOL UD 3ML (DUONEB)(J7620) NEB SCH ×6 (03:52→22:10)
[2019-01-26] MEDS ORDERED: PROMETHAZINE INJ 25 MG/ML VIAL (J2550) IV PRN (04:00)
[2019-01-26] MEDS ORDERED: ONDANSETRON 4 MG ORAL DISINTEGRATING TAB (Q0162 PER 1MG) PO PRN (04:00)
[2019-01-26] MEDS: ONDANSETRON 4MG/2ML VIAL (J2405) IV PRN (04:31)
[2019-01-26 04:59] LABS: HEMATOCRIT 33.1 % (36.0-47.0); HEMOGLOBIN 10.2 g/dl (12.0-15.5); MEAN CORPUSCULAR HEMOGLOBIN 31.2 pg (27.0-33.0); MEAN CORPUSCULAR HGB CONC 30.8 g/dl (32.0-36.5); MEAN CORPUSCULAR VOLUME 101.2 fl (80.0-96.0); PLATELET COUNT, AUTOMATED 187 10^3/uL (150-450); RED BLOOD COUNT 3.27 10^6/uL (4.00-5.40); WHITE BLOOD COUNT 7.4 10^3/uL (4.0-10.0)
[2019-01-26 05:24] LABS: ALBUMIN 2.5 GM/DL (3.2-5.2); BILIRUBIN,TOTAL 1.4 MG/DL (0.2-1.0); CALCIUM LEVEL 8.9 MG/DL (8.8-10.2); CREATININE FOR GFR 1.16 MG/DL (0.55-1.30); POTASSIUM SERUM 3.4 MEQ/L (3.5-5.1); TOTAL PROTEIN 6.4 GM/DL (6.4-8.2)
[2019-01-26] MEDS: LEVOTHYROXINE 75MCG TABLET (0.075MG) PO SCH (06:04)
[2019-01-26] MEDS: FAMOTIDINE 20 MG TAB PO SCH (08:47)
[2019-01-26] MEDS: LORazepam 1 MG TAB PO PRN ×2 (08:47→21:10)
[2019-01-26] MEDS: VITAMIN D 1,000 INTERNATIONAL UNITS TABLET PO SCH (08:47)
[2019-01-26] MEDS: FUROSEMIDE 40 MG/4 ML VIAL (J1940) IV SCH (08:47)
[2019-01-26] MEDS: FLECAINIDE 50MG TABLET PO SCH ×2 (08:48→21:26)
[2019-01-26] MEDS: BISOPROLOL FUMARATE 10 MG TAB PO SCH (08:48)
[2019-01-26] MEDS: MULTIVITAMINS/MINERALS THERAP 1 TAB PO SCH (08:48)
[2019-01-26] MEDS: CHLORHEXIDINE GLUCONATE 0.12 % 15ML UDC (PERIDEX ORAL RINSE) MT SCH ×2 (09:00→21:00)
[2019-01-26] MEDS ORDERED: POTASSIUM CHLORIDE 10 MEQ SR TABLET PO ONE (10:45)
--- NOTE | 2019-01-26 10:48 | IPNPDOC ---
Text Note Date of Service The patient was seen on 01/26/19. NOTE Patient was seen and examined this morning. The patient wanted to discuss adva nced directives and has signed DNR, DNI papers. At her discussion with her as well. PHYSICAL EXAMINATION: General: The patient is awake, alert, oriented x3, sitting up in the bed in no apparent distress. Head and Neck Exam: Extraocular muscles intact. Pupils equally round and reactive to light. Mucous membranes are moist. Neck is supple. There is no jugular venous distention (JVD). Cardiovascular: S1 and S2, regular rate. Trace edema of the bilateral lower extremities. Respiratory: Mild inspiratory crackles at the right base, mildly decreased breath sounds at the left side. Abdomen: Soft. Positive bowel sounds. Nontender. No organomegaly. Genitourinary: Indwelling Lopez catheter was noted. Musculoskeletal: Clubbing of the fingernails, no cyanosis was noted. Central Nervous System (CASTING ASSOCIATE): No focal deficit. Power is 5/[address] chest findings increase since recent prior examination dated 01/16/2019. Differential diagnosis includes CHF with pulmonary edema and effusions versus multifocal pneumonia versus progressive changes related to malignancy/metastatic disease Assessment and plan 1. Hypoxic respiratory failure. Likely secondary to nosocomial pneumonia versus CHF exacerbation. The patient was given 40 of IV Lasix and will be continued on 40 IV a day of Lasix right now. She has been in a negative balance of more than 3 L in the last 24 hours. Input output monitoring 1.5 L fluid restriction, 2 g sodium restriction. Sputum culture as well as blood culture has been initiated. The patient continues to be on IV vancomycin and IV cefepime day 2. We'll continue to monitor the WBC count. CBC within normal limits 2. Hypokalemia. We will replace when necessary and check magnesium as well 3) CKD stage III : monitor vanc levels ; avoid nephrotoxic agents; hold ACEI for now. 4) Acute exacerbation of diastolic heart failure. She continues to be on 40 twice a day of Lasix, beta osmel at a half dose. 2-D echo ordered as well 5) multiple myeloma - hold revlimid 6) Diabetes -currently hypoglycemic. We'll start on consistent carb diet . Patient was hypoglycemic that reason,frequent glucose checks. Levemer on hold . Hold januvia and Farxiga 7) paroxysmal Afib - continue with xarelto. Continue bisoprolol at half the dose 8) Hypothyroid - continue home dose synthroid CODE Status: full code DVT prophylaxis: not indicated as patient is on xarelto GI Prophylaxis: Pepcid CODE STATUS DNR/DNI. Papers signed on 01/26/19 The patient will be admitted to ICU. The patient is high risk because of her decompensated heart failure, hypoxic respiratory failure. VS,Fishbone, I+O VS, Fishbone, I+O Laboratory Tests 01/26/19 04:44 Red Blood Count 3.27 L, Mean Corpuscular Volume 101.2 H, Mean Corpuscular Hemoglobin 31.2, Mean Corpuscular Hemoglobin Concent 30.8 L, Red Cell Distribution Width 18.6 H, Calcium Level 8.9, Aspartate Amino Transf (AST/SGOT) 18, Alanine Aminotransferase (ALT/SGPT) 14, Alkaline Phosphatase 140 H, Total Bilirubin 1.4 #H, Total Protein 6.4, Albumin 2.5 L Vital Signs Date Time Temp Pulse Resp B/P (MAP) Pulse Ox O2 Delivery O2 Flow Rate FiO2 01/26/19 09:23 Nasal Cannula 6.0 01/26/19 08:48 78 154/82 01/26/19 07:04 30 01/26/19 04:00 97.2 20 90 I&O- Last 24 Hours up to 6 AM 01/26/19 06:00 Intake Total 2530 ml Output Total 5900 ml Balance -3370 ml BREEZY LEBLANC MD Jan 26, 2019 10:48
[2019-01-26] MEDS ORDERED: VANCOMYCIN HCL 1,000 MG, VIAL MATE ADAPTER 1 EACH in D5W 250 ML IV SCH (11:00)
[2019-01-26] MEDS ORDERED: VARIBAR NECTAR 40% w/v 240ML SUSP BTL As Ordered ONE (13:21)
[2019-01-26] MEDS ORDERED: E-Z-PAQUE 96% w/w SUSP 176GM BTL As Ordered ONE (13:21)
[2019-01-26] MEDS ORDERED: VARIBAR PUDDING 40% w/v 230ML TUBE As Ordered ONE (13:21)
[2019-01-26] MEDS ORDERED: SLF 3 ML SYR IV PRN (14:30)
--- NOTE | 2019-01-26 14:41 | NUR ---
Recommend regular solids, thin liquids via small sip & chin tuck. Upright & OOB during meals. Dysphagia tx compensatory strategy training. Addendum: 01/26/19 at 1442 by RIKA [facility] Amended: Links added.
--- NOTE | 2019-01-26 15:29 | ECHO ---
INPATIENT ECHOCARDIOGRAM REPORT DATE OF PROCEDURE: 01/25/2019 AGE: 73 GENDER: Female HEIGHT: 62 inches WEIGHT: 176 pounds BODY SURFACE AREA: 1.81 meters squared INPATIENT ICU ROOM: [id number] REFERRING PHYSICIAN: Dr. Fran Lanza INDICATION: Heart failure (unspecified). MEASUREMENTS: 2-D measurements: RV - 4.4 cm LV - 4.6 cm Septum 1.2 cm Posterior wall 1.2 cm Aortic root 3.4 cm LA - 3.9 cm LVEF 60% Doppler measurements: AV - 1.22 meters per second LVOT - 0.8 cm/s LVOT diameter 2.0 cm MV-E 95, A 57, EA ratio 1.7 Early mitral deceleration time 130 milliseconds E prime 6, A prime 6.4, E/E prime ratio 15.9 PCWP 19.6 mmHg PV - 0.8 meters per second Pulmonary artery acceleration time 88 milliseconds RVSP 59 mmHg IVC - 2.0 cm COMMENTS: Consistent atrially paced rhythm with spontaneous AV conduction. M-mode and two-dimensional echocardiography was performed with pulsed, continuous wave, color flow and tissue Doppler studies. Borderline concentric left ventricle hypertrophy with subtle localized septal wall motion abnormality suspected to be related to right ventricular pressure overload. Preserved global resting left ventricular systolic function. At least mildly dilated left atrium with Doppler evidence of an impairment of LV diastolic function and elevated mean left atrial pressure. At least mildly dilated right heart chambers with reduced right ventricular free wall motion and Doppler evidence of at least moderate to moderately severe pulmonary hypertension. IVC upper limits of normal with slightly reduced respiratory collapse in keeping with an elevated central venous pressure - right heart failure. Mild aortic valvular sclerosis without functional abnormality. Moderate mitral annular calcification with slight thickening of the mitral leaflets but adequate leaflet excursion. No obvious posterior systolic buckling or prolapse but moderately severe eccentrically directed mitral insufficiency to the floor of the left atrium. Normal aortic diameters. Normal appearing tricuspid valve with at least moderate insufficiency. Pacing leads could be visualized traversing right heart structures. Could not visualize any separate intracardiac mass or pedunculated vegetation. No pericardial effusion. Comparing today's study with transesophageal echocardiogram performed January 04, 2019. The degree of mitral insufficiency appears to have substantially increased. No comment was made regarding right ventricular enlargement and pulmonary hypertension that currently exists. Only mild tricuspid regurgitation was reported at that time. She currently has at least a moderate insufficiency. These valvular changes may well be on the basis of endocarditis with her history of multiple myeloma/immunosuppression and Staphylococcus bacteremia. Clinical correlation should be made. MELODYD
[2019-01-26] MEDS: RIVAROXABAN 20 MG TAB (XARELTO) PO SCH (17:48)
[2019-01-26] MEDS ORDERED: LOPERAMIDE 2 MG CAP PO ONE (18:00)
[2019-01-26] MEDS: SLF 3 ML SYR IV SCH (21:58)
--- NOTE | 2019-01-26 23:15 | PHACANCOPD ---
PHARMACY VANCOMYCIN DOSING Pt Demographics Demographics Patient Age:73 , Weight:81.300 , Gender: female Adjusted Body Weight Date: 01/25/19, Adjusted Body Weight: [61.9] Kg Events Past 24 Hours Events Past 24 Hours: NO: Dialysis, Diuretic Therapy, Change in CrCl, Fever, Elevation in WBC, Pending Diagnostics, Pending Procedures, Other Vancomycin Vancomycin indication: HCAP Vancomycin Target Ranges: 15-20 mcg/ml Vancomycin Load Y/N: Yes Load Dose Date Time Vancomycin Load Dose: 1.75G Date: 01/25/19 Time: 11:00 Vancomycin Dose Date: 01/26/19. Current Vancomycin Dose: [1g iv q24h] Intermittent Dosing?: No Labs Labs Item Value Date Time White Blood Count 7.4 10^3/uL 01/26/19443 Glomerular Filtration Rate 49.0 01/26/19443 Creatinine 1.16 MG/DL 01/26/19443 Blood Urea Nitrogen 11 MG/DL 01/26/19443 Vancomycin Level Trough 26.7 UG/ML *H 01/26/192156 Vital Signs Label Value Date Time Patient Temperature 97.8 degrees F 01/26/191999 Temperature Source Temporal 01/26/191999 Micro Microbiology 01/25/19 Blood Culture - Preliminary, Resulted No growth after 24 hours . All specim... 01/25/19 Blood Culture - Preliminary, Resulted No growth after 24 hours . All specim... 01/25/19 Gastrointestinal Tract Panel (PCR) - Final, Complete 01/25/19 Gram Stain - Final, Resulted 01/25/19 Sputum Culture, Resulted Pending 01/25/19 Urine Culture - Final, Complete Creatinine Clearance Date:01/26/19. Creatinine Clearance: [~37]. Pending Labs trough 01/28/19 @0800 Assessment and Plan Maintaining Current Dose?: No Reason for dose change: Trough too high Pharmacist Note Pharmacist Note Date: 01/26/19. Pharmacist note:Trough of 26.7 is above target range. Dose reduced to 1000mg q24h. Will continue to monitor and make adjustments as needed. LUCI [facility]BBINS [facility] Jan 26, 2019 23:15
[2019-01-27] VITALS (8 sets, daily range): BP systolic 122–149; BP diastolic 59–97
[2019-01-27 01:31] LABS: HEMATOCRIT 32.5 % (36.0-47.0); HEMOGLOBIN 10.1 g/dl (12.0-15.5); MEAN CORPUSCULAR HEMOGLOBIN 32.6 pg (27.0-33.0); MEAN CORPUSCULAR HGB CONC 31.1 g/dl (32.0-36.5); MEAN CORPUSCULAR VOLUME 104.8 fl (80.0-96.0); PLATELET COUNT, AUTOMATED 162 10^3/uL (150-450); WHITE BLOOD COUNT 6.9 10^3/uL (4.0-10.0)
[2019-01-27 01:59] LABS: ALBUMIN 2.4 GM/DL (3.2-5.2); BILIRUBIN,TOTAL 0.9 MG/DL (0.2-1.0); CALCIUM LEVEL 8.2 MG/DL (8.8-10.2); CREATININE FOR GFR 1.17 MG/DL (0.55-1.30); GLOMERULAR FILTRATION RATE 48.5 (>39); MAGNESIUM LEVEL 2.3 MG/DL (1.8-2.4); POTASSIUM SERUM 3.6 MEQ/L (3.5-5.1); TOTAL PROTEIN 6.4 GM/DL (6.4-8.2)
[2019-01-27] MEDS: METOPROLOL TART 12.5 MG PER 1/2 TAB PO SCH ×2 (02:41→08:44)
[2019-01-27] MEDS: LORazepam 1 MG TAB PO PRN ×4 (02:41→22:21)
[2019-01-27] MEDS: IPRATROPIUM 0.5MG/ALBUTEROL 2.5MG INH SOL UD 3ML (DUONEB)(J7620) NEB SCH ×6 (04:00→20:00)
[2019-01-27] MEDS: LEVOTHYROXINE 75MCG TABLET (0.075MG) PO SCH (05:30)
[2019-01-27] MEDS: SLF 3 ML SYR IV SCH ×3 (05:32→22:22)
[2019-01-27] MEDS: FUROSEMIDE 40 MG/4 ML VIAL (J1940) IV SCH (08:43)
[2019-01-27] MEDS: VANCOMYCIN HCL 1,000 MG, VIAL MATE ADAPTER 1 EACH in D5W 250 ML IV SCH (08:43)
[2019-01-27] MEDS: FAMOTIDINE 20 MG TAB PO SCH (08:44)
[2019-01-27] MEDS: MULTIVITAMINS/MINERALS THERAP 1 TAB PO SCH (08:44)
[2019-01-27] MEDS: VITAMIN D 1,000 INTERNATIONAL UNITS TABLET PO SCH (08:44)
[2019-01-27] MEDS: FLECAINIDE 50MG TABLET PO SCH ×2 (08:44→22:21)
[2019-01-27] MEDS: CHLORHEXIDINE GLUCONATE 0.12 % 15ML UDC (PERIDEX ORAL RINSE) MT SCH ×2 (08:45→22:21)
--- NOTE | 2019-01-27 10:33 | IPNPDOC ---
Text Note Date of Service The patient was seen on 01/27/19. NOTE Patient was seen and examined this morning. The patient wanted to discuss adva nced directives and has signed DNR, DNI papers. At her discussion with her as well. PHYSICAL EXAMINATION: General: The patient is awake, alert, oriented x3, sitting up in the bed in no apparent distress. Head and Neck Exam: Extraocular muscles intact. Pupils equally round and reactive to light. Mucous membranes are moist. Neck is supple. There is no jugular venous distention (JVD). Cardiovascular: S1 and S2, regular rate. Trace edema of the bilateral lower extremities. Respiratory: Mild inspiratory crackles at the right base, mildly decreased breath sounds at the left side. Abdomen: Soft. Positive bowel sounds. Nontender. No organomegaly. Genitourinary: Indwelling Lopez catheter was noted. Musculoskeletal: Clubbing of the fingernails, no cyanosis was noted. Central Nervous System (STATION BAGGAGE AGENT): No focal deficit. Power is 5/[address] chest findings increase since recent prior examination dated 01/16/2019. Differential diagnosis includes CHF with pulmonary edema and effusions versus multifocal pneumonia versus progressive changes related to malignancy/metastatic disease Assessment and plan 1. Hypoxic respiratory failure. Likely secondary to nosocomial pneumonia versus CHF exacerbation. The patient was given 40 of IV Lasix and will be continued on 40 IV a day of Lasix right now. She has been in a negative balance of more than 4 L in the last 48 hours. Input output monitoring 1.5 L fluid restriction, 2 g sodium restriction. Sputum culture as well as blood culture has been initiated. The patient continues to be on IV vancomycin and IV cefepime day 3. We'll continue to monitor the WBC count. CBC within normal limits 2. Hypokalemia. We will replace when necessary and check magnesium as well 3) CKD stage III : monitor vanc levels ; avoid nephrotoxic agents; hold ACEI for now. 4) Acute exacerbation of diastolic heart failure. She continues to be on 40 twice a day of Lasix, beta osmel bisoprolol increased to 10 twice a day. 2-D echo reviewed 5) multiple myeloma - hold revlimid 6) Diabetes -currently hypoglycemic. We'll start on consistent carb diet . Patient was hypoglycemic that reason,frequent glucose checks. Levemer on hold . Hold januvia and Farxiga 7) paroxysmal Afib - continue with xarelto. Continue bisoprolol 8) Hypothyroid - continue home dose synthroid CODE Status: full code DVT prophylaxis: not indicated as patient is on xarelto GI Prophylaxis: Pepcid CODE STATUS DNR/DNI. Papers signed on 01/26/19 The patient will be admitted to ICU. The patient is high risk because of her decompensated heart failure, hypoxic respiratory failure. VS,Fishbone, I+O VS, Fishbone, I+O Laboratory Tests 01/27/19 01:26 Red Blood Count 3.10 L, Mean Corpuscular Volume 104.8 H, Mean Corpuscular Hemoglobin 32.6, Mean Corpuscular Hemoglobin Concent 31.1 L, Red Cell Distribution Width 19.2 H, Calcium Level 8.2 L, Aspartate Amino Transf (AST/SGOT) 18, Alanine Aminotransferase (ALT/SGPT) 19, Alkaline Phosphatase 141 H, Total Bilirubin 0.9, Total Protein 6.4, Albumin 2.4 L Vital Signs Date Time Temp Pulse Resp B/P (MAP) Pulse Ox O2 Delivery O2 Flow Rate FiO2 01/27/19 08:44 118 135/80 01/27/19 08:00 98.2 19 93 2.0 01/26/19 22:10 Nasal Cannula 01/26/19 07:04 30 I&O- Last 24 Hours up to 6 AM 01/27/19 06:00 Intake Total 2220 ml Output Total 3090 ml Balance -870 ml BREEZY LEBLANC MD Jan 27, 2019 10:33
[2019-01-27] MEDS: BISOPROLOL FUMARATE 10 MG TAB PO SCH ×2 (11:08→22:22)
[2019-01-27] MEDS: CEFEPIME HCL 2 GM in D5W MINI-BAG PLUS 50 ML IV SCH ×2 (11:09→23:15)
[2019-01-27] MEDS: RIVAROXABAN 20 MG TAB (XARELTO) PO SCH (18:34)
[2019-01-28] MEDS: IPRATROPIUM 0.5MG/ALBUTEROL 2.5MG INH SOL UD 3ML (DUONEB)(J7620) NEB SCH ×6 (00:43→20:02)
[2019-01-28] MEDS: ONDANSETRON 4MG/2ML VIAL (J2405) IV PRN ×2 (02:58→20:42)
[2019-01-28] MEDS: LORazepam 1 MG TAB PO PRN ×4 (04:30→22:11)
[2019-01-28] MEDS: LEVOTHYROXINE 75MCG TABLET (0.075MG) PO SCH (05:50)
[2019-01-28] MEDS: SLF 3 ML SYR IV SCH ×3 (05:50→20:44)
[2019-01-28 05:55] LABS: HEMATOCRIT 29.9 % (36.0-47.0); HEMOGLOBIN 9.3 g/dl (12.0-15.5); MEAN CORPUSCULAR HEMOGLOBIN 32.7 pg (27.0-33.0); MEAN CORPUSCULAR HGB CONC 31.1 g/dl (32.0-36.5); MEAN CORPUSCULAR VOLUME 105.3 fl (80.0-96.0); PLATELET COUNT, AUTOMATED 152 10^3/uL (150-450); RED BLOOD COUNT 2.84 10^6/uL (4.00-5.40); WHITE BLOOD COUNT 7.5 10^3/uL (4.0-10.0)
[2019-01-28 06:00] VITALS: BP 135/68
[2019-01-28 06:17] LABS: ALBUMIN 2.4 GM/DL (3.2-5.2); BILIRUBIN,TOTAL 0.9 MG/DL (0.2-1.0); CREATININE FOR GFR 1.21 MG/DL (0.55-1.30); GLOMERULAR FILTRATION RATE 46.7 (>39); TOTAL PROTEIN 6.2 GM/DL (6.4-8.2)
[2019-01-28] MEDS ORDERED: DIGOXIN INJ 0.5 MG/2 ML AMP (J1160) IV ONE (08:15)
[2019-01-28] MEDS ORDERED: POTASSIUM CHLORIDE 10 MEQ SR TABLET PO ONE (09:45)
[2019-01-28] MEDS: FLECAINIDE 50MG TABLET PO SCH ×2 (10:02→20:42)
[2019-01-28] MEDS: VITAMIN D 1,000 INTERNATIONAL UNITS TABLET PO SCH (10:03)
[2019-01-28] MEDS: FAMOTIDINE 20 MG TAB PO SCH (10:03)
[2019-01-28] MEDS: MULTIVITAMINS/MINERALS THERAP 1 TAB PO SCH (10:03)
[2019-01-28] MEDS: CHLORHEXIDINE GLUCONATE 0.12 % 15ML UDC (PERIDEX ORAL RINSE) MT SCH ×2 (10:04→20:44)
[2019-01-28] MEDS: VANCOMYCIN HCL 1,000 MG, VIAL MATE ADAPTER 1 EACH in D5W 250 ML IV SCH (10:04)
[2019-01-28] MEDS: FUROSEMIDE 40 MG/4 ML VIAL (J1940) IV SCH (10:04)
[2019-01-28] MEDS: BISOPROLOL FUMARATE 10 MG TAB PO SCH ×2 (10:08→20:44)
--- NOTE | 2019-01-28 10:31 | IPNPDOC ---
Text Note Date of Service The patient was seen on 01/28/19. NOTE Patient was seen and examined this morning. No acute complaints overnight PHYSICAL EXAMINATION: General: The patient is awake, alert, oriented x3, sitting up in the bed in no apparent distress. Head and Neck Exam: Extraocular muscles intact. Pupils equally round and reactive to light. Mucous membranes are moist. Neck is supple. There is no jugular venous distention (JVD). Cardiovascular: S1 and S2, regular rate. Trace edema of the bilateral lower extremities. Respiratory: Mild inspiratory crackles at the right base, mildly decreased breath sounds at the left side. Abdomen: Soft. Positive bowel sounds. Nontender. No organomegaly. Genitourinary: Indwelling Lopez catheter was noted. Musculoskeletal: Clubbing of the fingernails, no cyanosis was noted. Central Nervous System (ASPHALT SCREED OPERATOR): No focal deficit. Power is 5/[address] chest findings increase since recent prior examination dated 01/16/2019. Differential diagnosis includes CHF with pulmonary edema and effusions versus multifocal pneumonia versus progressive changes related to malignancy/metastatic disease Assessment and plan 1. Hypoxic respiratory failure. Likely secondary to nosocomial pneumonia versus CHF exacerbation, likely diastolic. The patient was given 40 of IV Lasix and will be continued on 40 IV a day of Lasix right now. She has been in a negative balance of more than 4.7 L in the last 72 hours. Input output monitoring 1.5 L fluid restriction, 2 g sodium restriction. Sputum culture as well as blood culture has been initiated. The patient continues to be on IV vancomycin and IV cefepime day 4. We'll continue to monitor the WBC count. CBC within normal limits 2. Hypokalemia. We will replace when necessary and check magnesium as well 3) CKD stage III : monitor vanc levels ; avoid nephrotoxic agents; hold ACEI for now. 4) Acute exacerbation of diastolic heart failure. She continues to be on 40 once a day of Lasix, beta osmel bisoprolol increased to 10 twice a day. 2-D echo reviewed 5) multiple myeloma - hold revlimid 6) Diabetes -currently hypoglycemic. We'll start on consistent carb diet . Patient was hypoglycemic that reason,frequent glucose checks. Levemer on hold . Hold januvia and Farxiga 7) paroxysmal Afib - continue with xarelto. Continue bisoprolol 8) Hypothyroid - continue home dose synthroid CODE Status: full code DVT prophylaxis: not indicated as patient is on xarelto GI Prophylaxis: Pepcid CODE STATUS DNR/DNI. Papers signed on 01/26/19 The patient is high risk because of her decompensated heart failure, hypoxic respiratory failure. VS,Fishbone, I+O VS, Fishbone, I+O Laboratory Tests 01/28/19 05:38 Red Blood Count 2.84 L, Mean Corpuscular Volume 105.3 H, Mean Corpuscular Hemoglobin 32.7, Mean Corpuscular Hemoglobin Concent 31.1 L, Red Cell Distribution Width 19.0 H, Calcium Level 9.0, Aspartate Amino Transf (AST/SGOT) 8, Alanine Aminotransferase (ALT/SGPT) 13, Alkaline Phosphatase 127 H, Total Bilirubin 0.9, Total Protein 6.2 L, Albumin 2.4 L Vital Signs Date Time Temp Pulse Resp B/P (MAP) Pulse Ox O2 Delivery O2 Flow Rate FiO2 01/28/19 10:08 72 133/63 01/28/19 07:51 Nasal Cannula 3.0 01/28/19 06:00 98.7 19 94 01/26/19 07:04 30 l I&O- Last 24 Hours up to 6 AM 01/28/19 06:00 Intake Total 1880 ml Output Total 2250 ml Balance -370 ml BREEZY LEBLANC MD Jan 28, 2019 10:31
[2019-01-28] MEDS: CEFEPIME HCL 2 GM in D5W MINI-BAG PLUS 50 ML IV SCH ×2 (11:22→22:11)
[2019-01-28 14:00] VITALS: BP 112/59
[2019-01-28] MEDS: RIVAROXABAN 20 MG TAB (XARELTO) PO SCH (17:20)
[2019-01-28 22:00] VITALS: BP 110/62
[2019-01-28] MEDS ORDERED: VIAL MATE ADAPTER XX ONE (22:14)
[2019-01-29] MEDS: IPRATROPIUM 0.5MG/ALBUTEROL 2.5MG INH SOL UD 3ML (DUONEB)(J7620) NEB SCH ×4 (04:00→12:00)
[2019-01-29 06:00] VITALS: BP 132/76
[2019-01-29] MEDS: LEVOTHYROXINE 75MCG TABLET (0.075MG) PO SCH (06:29)
[2019-01-29] MEDS: SLF 3 ML SYR IV SCH (06:30)
[2019-01-29 07:18] LABS: HEMATOCRIT 30.2 % (36.0-47.0); HEMOGLOBIN 9.2 g/dl (12.0-15.5); MEAN CORPUSCULAR HEMOGLOBIN 32.4 pg (27.0-33.0); MEAN CORPUSCULAR HGB CONC 30.5 g/dl (32.0-36.5); MEAN CORPUSCULAR VOLUME 106.3 fl (80.0-96.0); PLATELET COUNT, AUTOMATED 148 10^3/uL (150-450); RED BLOOD COUNT 2.84 10^6/uL (4.00-5.40)
[2019-01-29 07:45] LABS: ALBUMIN 2.5 GM/DL (3.2-5.2); CALCIUM LEVEL 8.9 MG/DL (8.8-10.2); CREATININE FOR GFR 1.12 MG/DL (0.55-1.30); GLOMERULAR FILTRATION RATE 51.1 (>39); POTASSIUM SERUM 3.8 MEQ/L (3.5-5.1); TOTAL PROTEIN 6.5 GM/DL (6.4-8.2)
[2019-01-29] MEDS ORDERED: POTASSIUM CHLORIDE 10 MEQ SR TABLET PO SCH (09:00)
[2019-01-29] MEDS: FUROSEMIDE 40 MG/4 ML VIAL (J1940) IV SCH (10:28)
[2019-01-29] MEDS: LORazepam 1 MG TAB PO PRN (10:28)
[2019-01-29] MEDS: CHLORHEXIDINE GLUCONATE 0.12 % 15ML UDC (PERIDEX ORAL RINSE) MT SCH (10:28)
[2019-01-29] MEDS: MULTIVITAMINS/MINERALS THERAP 1 TAB PO SCH (10:29)
[2019-01-29] MEDS: FLECAINIDE 50MG TABLET PO SCH (10:29)
[2019-01-29] MEDS: FAMOTIDINE 20 MG TAB PO SCH (10:29)
[2019-01-29] MEDS: VITAMIN D 1,000 INTERNATIONAL UNITS TABLET PO SCH (10:30)
[2019-01-29 10:32] VITALS: BP 131/74
[2019-01-29] MEDS: BISOPROLOL FUMARATE 10 MG TAB PO SCH (10:32)
[2019-01-29] MEDS ORDERED: K-TA10TA PO (10:33)
[2019-01-29] MEDS ORDERED: TORS20TA2 PO (10:33)
--- NOTE | 2019-01-29 10:35 | DS.PDOC ---
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 fib, on bisoprolol and is at auto presented to the emergency department with 3 of worsening shortness of breath as well as cough with diarrhea. The patient states that she was recently discharged from the hospital because of MSSA bacteremia for which she was treated with antibiotics in the hospital, but after she was discharged. She continued to have increasing shortness of breath with cough along with diarrhea. The patient states that she has had multiple episodes of diarrhea every day. She was continent. No blood reported in the stool. Stated that she was also coughing which is productive with whitish yellowish sputum. Denies any fever, any tinnitus, any chills. In the ER. She required to be put on 5 L of nasal cannula and was saturating in the 90s. The patient was also given IV Lasix along with IV antibiotics because the CAT scan could not rule out CHF versus pneumonia. Patient states she is on Resimed for multiple myeloma. She also was hypoglycemic as she takes Levemir 10 twice a day and has not been eating poorly and still taking her Levemir. All the cultures have been sent in the ER along with activation to be continued on IV vancomycin and IV cefepime and sputum cultures as well as blood cultures Heart her Hypoxic respiratory failure. Likely secondary to CHF exacerbation, likely diastolic. The patient was given 40 of IV Lasix and will be continued on 40 IV a day of Lasix r. She has been in a negative balance of more than 5.7 L in the last 4 days . She also ordered an echo done which stated the same concentric hypertrophy. Her antibiotics were continued, but the patient's cultures all came negative. It was more to fluid overload situation and for that reason, antibiotics have been discontinued now. Patients procal was also negative. Her diarrhea also resolved and she's back to baseline and is using only 2 L of oxygen. Possible home today. Her torsemide has been increased to 40 twice a day from 20 twice a day and has been advised to follow with the director of design. She'll be continued on her flecainide and bisoprolol for A. fib along with surrounding 2. She has been advised dietary as well as medication compliance. She wants to go home today and is medically optimized and maximal benefit from this inpatient stay has been obtained PHYSICAL EXAMINATION: General: The patient is awake, alert, oriented x3, sitting up in the bed in no apparent distress. Head and Neck Exam: Extraocular muscles intact. Pupils equally round and reactive to light. Mucous membranes are moist. Neck is supple. There is no jugular venous distention (JVD). Cardiovascular: S1 and S2, regular rate. Trace edema of the bilateral lower extremities. Respiratory: mildly decreased breath sounds at the left side, otherwise normal breath sounds. Abdomen: Soft. Positive bowel sounds. Nontender. No organomegaly. Genitourinary: Deferred Musculoskeletal: Clubbing of the fingernails, no cyanosis was noted. Central Nervous System ([employer]): No focal deficit. Power is 5/[address] chest findings increase since recent prior examination dated 01/16/2019. Differential diagnosis includes CHF with pulmonary edema and effusions versus multifocal pneumonia versus progressive changes related to malignancy/metastatic disease Vital Signs Date Time Temp Pulse Resp B/P (MAP) Pulse Ox O2 Delivery O2 Flow Rate FiO2 01/29/19 10:32 71 131/74 01/29/19 06:00 96.0 72 20 132/76 (94) 94 2.0 01/28/19 22:00 96.2 70 17 110/62 (78) 98 2.0 01/28/19 20:44 110/62 01/28/19 20:00 2.0 01/28/19 14:00 97.6 70 18 112/59 (76) 90 2.0 Intake & Output 01/29/19 06:00 Intake Total 1290 ml Output Total 2450 ml Balance -1160 ml Laboratory Tests 01/28/19 11:58: Bedside Glucose (Misc Panel) 127H 01/28/19 16:38: Bedside Glucose (Misc Panel) 139H 01/28/19 20:39: Bedside Glucose (Misc Panel) 115H 01/29/19 07:07: White Blood Count 8.0, Red Blood Count 2.84L, Hemoglobin 9.2L, Hematocrit 30.2L, Mean Corpuscular Volume 106.3H, Mean Corpuscular Hemoglobin 32.4, Mean Corpuscular Hemoglobin Concent 30.5L, Red Cell Distribution Width 18.8H, Platelet Count 148L, Nucleated Red Blood Cells % (auto) 0.0, Blood Urea Nitrogen 12, Creatinine 1.12, Sodium Level 140, Potassium Level 3.8#, Chloride Level 107, Carbon Dioxide Level 29, Calcium Level 8.9, Aspartate Amino Transf (AST/SGOT) 11, Alanine Aminotransferase (ALT/SGPT) 13, Alkaline Phosphatase 127H, Total Bilirubin 1.0, Total Protein 6.5, Albumin 2.5L, Anion Gap 4L, Glomerular Filtration Rate 51.1, Fasting Glucose 112H, Albumin/Globulin Ratio 0.63L Microbiology 01/25/19 Gastrointestinal Tract Panel (PCR) - Final, Complete 01/25/19 Gram Stain - Final, Complete 01/25/19 Sputum Culture - Final, Complete Mold Like Organism 01/25/19 Urine Culture - Final, Complete Current Medications Medications (Trade) Dose Ordered Sig/Scott Route PRN Reason Start Time Stop Time Status Last Admin Dose Admin Acetaminophen (Tylenol Tab) 1,000 mg Q6HP PRN PO PAIN / FEVER 01/25/19 22:30 01/26/19 16:56 1,000 MG Albuterol/ Ipratropium (Duoneb (Ipr 0.5mg/Alb 2.5mg)) 3 ml RQ4H NEB 01/25/19 12:00 01/29/19 07:53 3 ML Bisoprolol Fumarate (Zebeta) 10 mg BID PO 01/27/19 09:00 01/29/19 10:32 10 MG Chlorhexidine Gluconate (Peridex Oral Rinse) SWAB/BRUSH ORAL CAVITY BID MT 01/25/19 09:00 01/29/19 10:28 15 ML Dextrose (Dextrose 50%) 50 ml ASDIRECTED PRN IV LOW BLOOD SUGAR 01/25/19 14:00 01/25/19 14:00 50 ML Famotidine (Pepcid) 40 mg DAILY PO 01/25/19 09:00 01/29/19 10:29 40 MG Flecainide Acetate (Tambocor) 100 mg BID PO 01/25/19 09:00 01/29/19 10:29 100 MG Furosemide (LASIX injection) 40 mg DAILY IV 01/26/19 09:00 01/29/19 10:28 40 MG Levothyroxine Sodium (Synthroid) 75 mcg DAILY@0600 PO 01/26/19 06:00 01/29/19 06:29 75 MCG Lorazepam (Ativan) 1 mg QID PRN PO ANXIETY/AGITATION 01/25/19 11:30 01/29/19 10:28 1 MG Multivitamins (Theragram-M) 1 tab DAILY PO 01/25/19 09:00 01/29/19 10:29 1 TAB Ondansetron HCl (ZOFRAN INJection) 4 mg Q8HP PRN IV NAUSEA OR VOMITING 01/26/19 04:00 01/28/19 20:42 4 MG Potassium Chloride (Micro-K Extencaps) 40 meq DAILY PO 01/29/19 09:00 01/29/19 10:29 40 MEQ Rivaroxaban (Xarelto) 20 mg DAILY@1800 PO 01/25/19 18:00 01/28/19 17:20 20 MG Sodium Chloride (Saline Lock Flush) 2 ml SLF IV 01/26/19 22:00 01/29/19 06:30 3 ML Vitamin D (Vitamin D) 2,000 units DAILY PO 01/25/19 09:00 01/29/19 10:30 2,000 UNITS Medications. As per discharge reconciliation medication list Activity as tolerated Diet. 2 g sodium diet Follow-up appointments. PCP in 1 week, cardiology in 1 week. Condition on discharge. Patient is medically optimized for discharge Discharge disposition: Home Total time spent on this discharge including coordination of care, review of chart documentation and extubation contact is around 35 minutes Vital Signs/I&Os Vital Signs Date Time Temp Pulse Resp B/P (MAP) Pulse Ox O2 Delivery O2 Flow Rate FiO2 01/29/19 10:32 71 131/74 01/29/19 06:00 96.0 20 94 2.0 01/28/19 07:51 Nasal Cannula 01/26/19 07:04 30 I&O- Last 24 Hours up to 6 AM0 01/29/19 06:00 Intake Total 1290 ml Output Total 2450 ml Balance -1160 ml Laboratory Data Labs 24H Laboratory Tests 2 01/28/19 11:58: Bedside Glucose (Misc Panel) 127H 01/28/19 16:38: Bedside Glucose (Misc Panel) 139H 01/28/19 20:39: Bedside Glucose (Misc Panel) 115H 01/29/19 07:07: Nucleated Red Blood Cells % (auto) 0.0, Anion Gap 4L, Glomerular Filtration Rate 51.1, Blood Urea Nitrogen 12, Creatinine 1.12, Sodium Level 140, Potassium Level 3.8#, Chloride Level 107, Carbon Dioxide Level 29, Calcium Level 8.9, Aspartate Amino Transf (AST/SGOT) 11, Alanine Aminotransferase (ALT/SGPT) 13, Alkaline Phosphatase 127H, Total Bilirubin 1.0, Total Protein 6.5, Albumin 2.5L, Albumin/Globulin Ratio 0.63L CBC/BMP Laboratory Tests 01/29/19 07:07 Red Blood Count 2.84 L, Mean Corpuscular Volume 106.3 H, Mean Corpuscular Hemoglobin 32.4, Mean Corpuscular Hemoglobin Concent 30.5 L, Red Cell Distribution Width 18.8 H, Calcium Level 8.9, Aspartate Amino Transf (AST/SGOT) 11, Alanine Aminotransferase (ALT/SGPT) 13, Alkaline Phosphatase 127 H, Total Bilirubin 1.0, Total Protein 6.5, Albumin 2.5 L FSBS Laboratory Tests Test 01/28/19 11:58 01/28/19 16:38 01/28/19 20:39 Range/Units Bedside Glucose (Misc Panel) 127 139 115 83-110 MG/DL Microbiology Microbiology 01/25/19 Blood Culture - Preliminary, Resulted No Growth after 72 hours. All specime... 01/25/19 Blood Culture - Preliminary, Resulted No Growth after 72 hours. All specime... 01/25/19 Gastrointestinal Tract Panel (PCR) - Final, Complete 01/25/19 Gram Stain - Final, Complete 01/25/19 Sputum Culture - Final, Complete Mold Like Organism 01/25/19 Urine Culture - Final, Complete Discharge Medications Scheduled Bisoprolol Fumarate (Bisoprolol Fumarate) 10 Mg Tab, 10 MG PO BID, (Reported) Cholecalciferol (Vitamin D3) (Vitamin D3) 1,000 Unit Tab, 2,000 UNIT PO DAILY, (Reported) Colesevelam HCl (Welchol) 3.75 Gm Powd.pack, 3.75 GM PO DAILY, (Reported) Dapagliflozin Propanediol (Farxiga) 10 Mg Tab, 5 MG PO DAILY, (Reported) Flecainide Acetate (Flecainide Acetate) 50 Mg Tablet, 100 MG PO BID, (Reported) Insulin Detemir (Levemir) 100 Unit/1 Ml Vial, 10 UNITS SC QHS, (Reported) Lenalidomide (Revlimid) 10 Mg Capsule, 10 MG PO DAILY, (Reported) Levothyroxine Sodium (Synthroid) 75 Mcg Tab, 75 MCG PO DAILY, (Reported) Multivitamins (Thera M Plus Tablet) 1 Tab Tab, 1 TAB PO DAILY, (Reported) Potassium Chloride (K-Tab ER) 10 Meq Tablet.er, 1 TAB PO DAILY Rivaroxaban (Xarelto) 20 Mg Tab, 20 MG PO QPM, (Reported) Sitagliptin Phosphate (Januvia) 100 Mg Tab, 100 MG PO ACS, (Reported) Torsemide (Torsemide) 20 Mg Tablet, 40 MG PO BID Scheduled PRN Lorazepam (Ativan) 1 Mg Tab, 1 MG PO QID PRN for ANXIETY/AGITATION, (Reported) Allergies Coded Allergies: shellfish derived (Verified Allergy, Severe, swelling, 10/26/18) Penicillins (Verified Allergy, Intermediate, rash, 10/26/18) latex (Verified Allergy, Intermediate, rash, 10/26/18) dabigatran etexilate (Verified Allergy, Mild, itching, 01/25/19) codeine (Verified Adverse Reaction, Mild, upset stomach, 10/26/18) BREEZY LEBLANC MD Jan 29, 2019 10:35
[2019-01-29] MEDS ORDERED: LOPE2CA PO (10:43)
--- NOTE | 2019-02-01 17:43 | REP ---
COOKIE SWALLOW The procedure was performed under the direct supervision of Dr. Hernandez. The procedure was performed with Latosha Castle from speech pathology present. 5 ml aliquots of pudding, thin, mixed fruit and solid consistency barium was administered. With thin consistency barium there is laryngeal penetration. A detailed report of this examination will be provided by speech pathology. 1.2 minutes of fluoroscopy time was utilized for this procedure. Reviewed by REID Sanford 01/26/2019 04:55 P Electronically Signed by Constantine Hernandez MD 02/01/2019 05:34 P
== END 2019-01-29 13:37 | disposition home or self-care (01) | DRG 194 ==
LOC: M ED 07:53 → EDBD 07:53 → M ED INP 11:18 → M ICU 14:30 → M MSPAV 01-27 17:40
PROVIDERS: ADMIT Internal Medicine; ATTEND Internal Medicine
DX: I13.0 Hypertensive heart and chronic kidney disease with heart failure and stage 1 through stage 4 chronic kidney disease, or unspecified chronic kidney disease (principal); J96.91 Respiratory failure, unspecified with hypoxia; J18.9 Pneumonia, unspecified organism; C90.00 Multiple myeloma not having achieved remission; E11.649 Type 2 diabetes mellitus with hypoglycemia without coma; I48.0 Paroxysmal atrial fibrillation; N18.3 Chronic kidney disease, stage 3 (moderate); I50.33 Acute on chronic diastolic (congestive) heart failure; E87.6 Hypokalemia; E78.5 Hyperlipidemia, unspecified; E03.9 Hypothyroidism, unspecified; E55.9 Vitamin D deficiency, unspecified; M81.0 Age-related osteoporosis without current pathological fracture; Z66 Do not resuscitate; Z85.118 Personal history of other malignant neoplasm of bronchus and lung; Z79.01 Long term (current) use of anticoagulants; Z90.2 Acquired absence of lung [part of]; Z88.0 Allergy status to penicillin; Z88.5 Allergy status to narcotic agent; Z88.8 Allergy status to other drugs, medicaments and biological substances; Z91.040 Latex allergy status; Z91.013 Allergy to seafood; Z87.891 Personal history of nicotine dependence; Z79.4 Long term (current) use of insulin; Z79.899 Other long term (current) drug therapy

== ENCOUNTER → 2019-02-04 | Outpatient (REF) | payer OTHER ==
[~2019-02-04] MED LIST changes: +FURO80TA2 PO; +K-TA10TA PO; +LOPE2CA PO
[2019-02-04 18:10] LABS: APPEARANCE, URINE CLEAR (CLEAR); BACTERIA, URINE AUTO NEGATIVE (NEGATIVE); BILIRUBIN, URINE AUTO NEGATIVE (NEGATIVE); BLOOD, URINE BLOOD 2+ (NEGATIVE); COLOR, URINE STRAW (YELLOW); GLUCOSE, URINE (UA) AUTO NEGATIVE (NEGATIVE); KETONE, URINE AUTO NEGATIVE (NEGATIVE); LEUKOCYTE ESTERASE, URINE AUTO TRACE (NEGATIVE); NITRITE, URINE AUTO NEGATIVE (NEGATIVE); PROTEIN, URINE AUTO NEGATIVE (NEGATIVE); RBC, URINE AUTO 3 /HPF (0-3); SPECIFIC GRAVITY URINE AUTO 1.009 (1.002-1.035); SQUAMOUS EPITHELIAL CELL UR AU 2 /HPF (0-6); UROBILINOGEN, URINE AUTO 0.2 mg/dL (0.0-2.0); WBC, URINE AUTO 2 /HPF (0-3)
== END ==
LOC: M LAB REF 17:00
PROVIDERS: ATTEND Internal Medicine
DX: R30.0 Dysuria (principal)

== ENCOUNTER → 2019-02-18 | Outpatient (CLI) | payer OTHER ==
[~2019-02-18] MED LIST changes: +ISOVUE-370 76% 100ML VIAL (Q9967) As Ordered ONE; +OXYC-517 PO
--- NOTE | 2019-02-18 17:40 | REPVR ---
EXAM: CT Thoracic Spine With Contrast EXAM DATE/TIME: 02/18/2019 4:46 PM CLINICAL HISTORY: 73 years old, female; Pain in thoracic spine; Without myelpathy or radiculopathy; Additional info: Severe new pain, thoracic spine TECHNIQUE: Imaging protocol: Computed tomography images of the thoracic spine with intravenous contrast. Coronal and sagittal reformatted images were created and reviewed. Radiation optimization: All CT scans at this facility use at least one of these dose optimization techniques: automated exposure control; mA and/or kV adjustment per patient size (includes targeted exams where dose is matched to clinical indication); or iterative reconstruction. Contrast material: ISOVUE 370;Contrast volume: 100 ml;Contrast route: IV; COMPARISON: No relevant prior studies available. FINDINGS: Vertebrae: No acute fracture. Normal alignment. Discs/Spinal canal/Neural foramina: No spinal stenosis. Soft tissues: Unremarkable. Lungs: Bilateral apical pleural-parenchymal scarring. Pleural space: Small right pleural effusion. Adrenals: Bilateral adrenal hyperplasia. IMPRESSION: No acute findings. Electronically signed by: Tirso Villalba On 02/18/2019 17:40:24 PM
== END ==
LOC: M RAD 16:04
PROVIDERS: ATTEND Internal Medicine Medical Oncology
DX: M54.6 Pain in thoracic spine (principal); Z85.118 Personal history of other malignant neoplasm of bronchus and lung; Z85.79 Personal history of other malignant neoplasms of lymphoid, hematopoietic and related tissues
CPT/HCPCS: 72129; Q9967

== ENCOUNTER → 2019-02-28 | Outpatient (CLI) | payer OTHER ==
[~2019-02-28] MED LIST changes: -ISOVUE-370 76% 100ML VIAL (Q9967) As Ordered ONE; +OXYC15TA76 PO
--- NOTE | 2019-02-28 16:00 | REP ---
WHOLE BODY BONE SCAN: Following the intravenous administration of 22 mCi of technetium-99m MDP, patient's whole body is imaged in the anterior and posterior projections with additional oblique and lateral views obtained. Increased radiotracer uptake is seen at the T9 level. This may be arthritic in etiology. No abnormality is otherwise seen on the CT of 02/18/2019. There is arthritic uptake in both wrists. There also appears to be arthritic uptake in both shoulders. There is a tiny focus of increased uptake in the left frontoparietal region on the anterior view. I cannot exclude a small lesion in the skull. No abnormal uptake is seen in the ribs. Renal and bladder activity are seen. IMPRESSION: Increased uptake at T9 could be arthritic. Further evaluation could be made with MRI of the thoracic spine with and without contrast. Tiny focus of increased uptake in the left frontoparietal calvarium. I cannot exclude a small bone lesion at that location. Electronically Signed by Constantine Hernandez MD 03/02/2019 07:55 A
== END ==
LOC: M RAD 09:25
PROVIDERS: ATTEND Internal Medicine
DX: R07.81 Pleurodynia (principal); Z85.79 Personal history of other malignant neoplasms of lymphoid, hematopoietic and related tissues
CPT/HCPCS: 78306; A9503

== ENCOUNTER → 2019-03-11 | Outpatient (REF) | payer OTHER | LOC: M LAB REF 12:32 | PROVIDERS: ATTEND Internal Medicine | DX: M54.5 Low back pain (principal); C90.01 Multiple myeloma in remission ==

== ENCOUNTER 2019-03-22 08:23 | Emergency (ER) | payer OTHER ==
[~2019-03-22] VITALS: Ht 152.4 cm; Wt 77.1 kg
[~2019-03-22 08:23] MED LIST changes: -ALBU17IN2 INH; +PROV108A INH
[2019-03-22] MEDS ORDERED: oxyCODONE 5MG TAB PO ONE (09:30)
[2019-03-22] MEDS ORDERED: OXYC15TA76 PO (10:46)
[2019-03-22] MEDS ORDERED: KEFL500C17 PO (10:46)
[2019-03-22 10:52] VITALS: BP 139/70
--- NOTE | 2019-03-22 11:06 | REP ---
CT ABDOMEN AND PELVIS WITHOUT CONTRAST: CT abdomen and pelvis performed without oral or IV contrast. Sagittal and coronal reconstruction images are performed. Visualized lung bases demonstrate fibrotic changes. Two cysts in the right lobe of the liver appear stable. Gallbladder is grossly unremarkable. There is no definite biliary dilatation. The spleens is normal in size with no intrinsic abnormality. The adrenal glands demonstrate no nodule. Pancreas is grossly unremarkable. Kidneys demonstrate no calculus or hydronephrosis. There is no hydroureter or ureteral stone. There is moderate atherosclerotic calcification of the abdominal aorta without aneurysm. There is no adenopathy. There is no free air or free fluid. There is no bowel wall thickening. The appendix is normal. No pelvic mass is seen. Urinary bladder is grossly unremarkable. There are degenerative changes of the spine. Note is made of paravertebral soft tissue surrounding the T8 and T9 vertebral bodies more so on the right, reaching a maximal thickness of 2 cm on the right at the T8 level. This could be neoplastic. IMPRESSION: No evidence of renal or ureteral calculus and no hydroureteronephrosis. Normal appendix. No free air or free fluid. Abnormal soft tissue surrounding the T8 and T9 vertebral bodies more so on the right. Maximum thickness on the right is 2 cm. This could be neoplastic. Electronically Signed by Constantine Hernandez MD 03/22/2019 11:59 P
--- NOTE | 2019-03-23 13:36 | ED PDOC ---
Post-Departure Follow-Up dr gil and dr pop faxed formal report of ct abd/p for fu Igor Tam MD Mar 23, 2019 13:36
[2019-04-11] MEDS ORDERED: OXYC10TA12 PO (15:37)
== END 2019-03-22 10:54 | disposition home or self-care (01) ==
LOC: M ED 08:23
DX: N39.0 Urinary tract infection, site not specified (principal); M54.9 Dorsalgia, unspecified; C72.0 Malignant neoplasm of spinal cord; I48.91 Unspecified atrial fibrillation; I50.9 Heart failure, unspecified; I25.10 Atherosclerotic heart disease of native coronary artery without angina pectoris; C90.00 Multiple myeloma not having achieved remission; Z87.891 Personal history of nicotine dependence; Z88.0 Allergy status to penicillin; Z88.5 Allergy status to narcotic agent; Z88.8 Allergy status to other drugs, medicaments and biological substances; Z91.040 Latex allergy status; Z91.013 Allergy to seafood; Z79.899 Other long term (current) drug therapy; Z79.01 Long term (current) use of anticoagulants; Z79.4 Long term (current) use of insulin

== ENCOUNTER → 2019-03-25 | Outpatient (CLI) | payer OTHER ==
[~2019-03-25] MED LIST changes: +ALBU17IN2 INH; +CEPH500C PO; +DIGO0.12 PO; +FURO40TA2 PO; +GUMMCHW PO; +KEFL500C17 PO; +LIDOCAINE 1% MDV 20ML VIAL As Ordered ONE; +POTA10TA14 PO; -PROV108A INH
[2019-03-25 13:55] VITALS: BP 138/64
--- NOTE | 2019-03-25 15:05 | REP ---
CT guided right paraspinal soft tissue mass biopsy and aspiration procedure: History: Patient with history of lung carcinoma and myeloma with severe thoracic pain, abnormal bone scan and recent finding of paraspinal soft tissue mass at the T8-9 level. The patient is referred for CT-guided biopsy and aspiration. Procedure: The patient and her were interviewed and informed consent was obtained. The patient was placed in a right side down prone oblique position on the CT gantry. Initial scans were utilized to identify the area of interest. The skin was marked at the skin entry position. Patient safety time-out was articulated and agreed upon. Utilizing aseptic precautions, 1% lidocaine for local anesthetic (6 mL), and CT guidance, a 19/20 gauge coaxial Temno cutting needle biopsy device was advanced from a posterior paraspinal approach into the area of abnormal soft tissue density and adjacent bony cortical irregularity. A series of seven core specimens were retrieved and distributed into CytoLyt, formalin, and a sterile specimen cup for culture and Gram stain. Postprocedure imaging shows no evidence of complication. There is post biopsy air at the site of the morphologic abnormality. The patient tolerated the procedure well and was released from the department following the procedure. Impression: CT guided needle biopsy procedure right paraspinal soft tissue mass at the T8-9 level. Electronically Signed by Tom Lemos MD 03/25/2019 04:05 P
== END ==
LOC: M IRPRO 11:45
DX: C90.01 Multiple myeloma in remission (principal); Z85.118 Personal history of other malignant neoplasm of bronchus and lung

== ENCOUNTER 2019-03-29 13:56 | Inpatient (IN) | payer OTHER ==
[~2019-03-29] VITALS: Ht 152.4 cm; Wt 75.3 kg
[~2019-03-29 13:56] MED LIST changes: -ALBU17IN2 INH; -CEPH500C PO; -DIGO0.12 PO; -FURO40TA2 PO; -GUMMCHW PO; -LIDOCAINE 1% MDV 20ML VIAL As Ordered ONE; -POTA10TA14 PO; +PROV108A INH
[2019-03-29 15:14] VITALS: BP 126/66
[2019-03-29] MEDS ORDERED: OXYC-517 PO (16:37)
[2019-03-29] MEDS ORDERED: GUMMCHW PO (16:37)
[2019-03-29] MEDS ORDERED: CEPH500C PO (16:37)
[2019-03-29] MEDS ORDERED: DIGO0.12 PO (16:37)
[2019-03-29] MEDS ORDERED: FURO40TA2 PO (16:37)
[2019-03-29] MEDS ORDERED: POTA10TA14 PO (16:37)
[2019-03-29] MEDS ORDERED: GLUCAGON FOR INJ 1 MG VIAL (J1610) SC PRN (16:45)
[2019-03-29] MEDS ORDERED: DEXTROSE 50% 50 ML SYRINGE IV PRN (17:00)
[2019-03-29] MEDS ORDERED: GLUCOSE 4 GM CHEW TABLET PO PRN (17:00)
[2019-03-29] MEDS: HumaLOG INSULIN (NovoLOG) PER UNIT SC SCH ×2 (17:20→20:41)
[2019-03-29] MEDS: oxyCODONE 5MG TAB PO SCH ×2 (17:20→23:20)
[2019-03-29 17:36] LABS: ALBUMIN 2.8 GM/DL (3.2-5.2); BILIRUBIN,TOTAL 0.4 MG/DL (0.2-1.0); CALCIUM LEVEL 9.1 MG/DL (8.8-10.2); CREATININE FOR GFR 1.26 MG/DL (0.55-1.30); GLOMERULAR FILTRATION RATE 44.6 (>39); POTASSIUM SERUM 3.4 MEQ/L (3.5-5.1); TOTAL PROTEIN 6.7 GM/DL (6.4-8.2)
[2019-03-29] MEDS ORDERED: VANCOMYCIN HCL 500 MG in D5W MINI-BAG PLUS 100 ML IV ONE (20:00)
[2019-03-29 20:34] VITALS: BP 101/56
[2019-03-29] MEDS: LORazepam 1 MG TAB PO PRN (20:36)
[2019-03-29] MEDS: SITagliptin 50 MG TAB (JANUVIA) PO SCH (20:36)
[2019-03-29] MEDS: RIVAROXABAN 20 MG TAB (XARELTO) PO SCH (20:36)
[2019-03-29] MEDS: FUROSEMIDE 40 MG TAB PO SCH (21:00)
--- NOTE | 2019-03-29 21:23 | HPEPDOC ---
General Date of Admission Mar 29, 2019 at 15:02 Date of Service: Mar 29, 2019 Chief Complaint The patient is a 73-year-old female admitted with a reason for visit of Discitis. Source: Patient, Old records, Other (conversation with oncologist) Exam Limitations: No limitations Timing/Duration: Week(s), Getting worse Severity: Moderate Associated Symptoms: Loss of appetite, Nausea, Other (night sweats) History of Present Illness This is a 73-year-old female with a history of multiple myeloma that is in full remission. She also has a history of stage I lung cancer, moderately differenti ated adenocarcinoma. The patient had had back pain for about 6 weeks. It has been getting steadily worse. Imaging showed question of a tissue mass at T8. Apparent biopsy was revealed to be positive for MSSA. Patient was felt to have developed on the discitis. She was sent to the hospital for management with IV antibiotics. Of interest, the patient had an episode of staph bacteremia in December of this year. It was associated with her port, which was removed. She is asking appropriate questions about whether her spine was seeded from the infection associated with her port. Patient also reports having a vaginal ultrasound in December 2018 showing thickening of the endometrium. She has not yet had this followed up. Patient has a history of paroxysmal atrial fibrillation for which she is undergone ablation in the past. She reports undergoing cardioversion 3-4 weeks ago. She remains on rate control medication and anticoagulation with Xarelto. Home Medications Scheduled Bisoprolol Fumarate (Bisoprolol Fumarate) 10 Mg Tab, 10 MG PO BID, (Reported) Cephalexin (Cephalexin) 500 Mg Capsule, 500 MG PO BID, (Reported) FILLED 03/22/19 FOR 7 DAYS - HAS ONE DOSE LEFT FOR 03/29/19 Cholecalciferol (Vitamin D3) (Vitamin D3) 1,000 Unit Tab, 2,000 UNIT PO DAILY, (Reported) Colesevelam HCl (Welchol) 3.75 Gm Powd.pack, 3.75 GM PO DAILY, (Reported) Dapagliflozin Propanediol (Farxiga) 10 Mg Tab, 5 MG PO DAILY, (Reported) Digoxin (Digoxin) 125 Mcg Tablet, 125 MCG PO DAILY, (Reported) Flecainide Acetate (Flecainide Acetate) 50 Mg Tablet, 100 MG PO BID, (Reported) Furosemide (Furosemide) 40 Mg Tablet, 40 MG PO BID, (Reported) Insulin Detemir (Levemir) 100 Unit/1 Ml Vial, 40 UNITS SC QHS, (Reported) Levothyroxine Sodium (Synthroid) 75 Mcg Tab, 75 MCG PO DAILY, (Reported) Multivitamin (Gummi Bear Multivitamin) 1 Each Tab.chew, 2 CHW PO DAILY, (Reported) Potassium Chloride (Potassium Chloride) 10 Meq Tablet.er, 20 MEQ PO DAILY, (Reported) Rivaroxaban (Xarelto) 20 Mg Tab, 20 MG PO QPM, (Reported) Sitagliptin Phosphate (Januvia) 100 Mg Tab, 100 MG PO QPM, (Reported) Scheduled PRN Lorazepam (Ativan) 1 Mg Tab, 1 MG PO QID PRN for ANXIETY/AGITATION, (Reported) Oxycodone HCl (Oxycodone HCl) 5 Mg Tablet, 5 MG PO QID PRN for PAIN, (Reported) Allergies Coded Allergies: shellfish derived (Verified Allergy, Severe, swelling, 10/26/18) Penicillins (Verified Allergy, Intermediate, rash, 10/26/18) latex (Verified Allergy, Intermediate, rash, 10/26/18) dabigatran etexilate (Verified Allergy, Mild, itching, 01/25/19) codeine (Verified Adverse Reaction, Mild, upset stomach, 10/26/18) Past Medical History Medical History Multiple myeloma in remission, stage I moderately differentiated adenocarcinoma of the lung, chronic diastolic congestive heart failure, chronic kidney disease stage III, paroxysmal atrial fibrillation for which she has undergone ablation and cardioversion and is on Xarelto for chronic anticoagulation, hypothyroidism, eag-hmshpny-wutvkqofi diabetes mellitus, osteoporosis, 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, severe pulmonary hypertension noted to echocardiogram with right- sided heart failure, and RVSP of 59 mmHg, ejection fraction is preserved at 60% Surgical History Parathyroidectomy, tonsillectomy with adenoidectomy, unspecified, left knee surgery, right lobectomy Family History Significant Family History: Heart disease, Hypertension, Other (atrial fibrillation) Social History * Smoker: former Smoker (patient has not smoked for 40 years) Alcohol: rarely 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 Recent Travel/Sick Contacts: Denies: Recent travel, Recent sick contacts Psychosocial History: No pertinent psych hx 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 A-FIB/CHADSVASC A-FIB History Current/History of A-Fib/PAF?: Yes Current PO Anticoag Therapy: Yes Review of Systems Other systems 10 system review is otherwise negative except as stated in the HPI. Physical Examination General Exam: Positive: Alert, Cooperative, Mild Distress Eye Exam: Positive: PERRLA, Conjunctiva & lids normal ENT Exam: Positive: Atraumatic, Mucous membr. moist/pink, Tongue Midline, Nares Patent Neck Exam: Positive: Supple; Negative: JVD, thyromegaly Chest Exam: Positive: Clear to auscultation, Normal air movement Heart Exam: Positive: Rate Normal, Regular Rhythm, Normal S1, Normal S2; Negative: Murmurs, Rubs Telemetry: Positive: Atrial fibrillation (stable rate) Abdomen Exam: Positive: Normal bowel sounds, Soft; Negative: Tenderness, Hepatospenomegaly Extremity Exam: Positive: Normal pulses; Negative: Clubbing, Cyanosis, Edema Skin Exam: Positive: Nl turgor and temperature Neuro Exam: Positive: Normal Speech, Cranial Nerves 3-12 NL Psych Exam: Positive: Mental status NL Vital Signs Vital Signs Date Time Temp Pulse Resp B/P (MAP) Pulse Ox O2 Delivery O2 Flow Rate FiO2 03/29/19 20:34 72 101/56 (71) 03/29/19 17:50 18 03/29/19 15:14 97.7 98 Laboratory Data Labs 24H Laboratory Tests 2 03/29/19 16:55: Anion Gap 8, Glomerular Filtration Rate 44.6, Lactic Acid Level 2.2*H, Blood Ur ea Nitrogen 15, Creatinine 1.26, Sodium Level 137, Potassium Level 3.4L, Chloride Level 102, Carbon Dioxide Level 27, Calcium Level 9.1, Aspartate Amino Transf (AST/SGOT) 18, Alanine Aminotransferase (ALT/SGPT) 20, Alkaline Phosphatase 159H, Total Bilirubin 0.4, Total Protein 6.7, Albumin 2.8L, Albu min/Globulin Ratio 0.72L CBC/BMP Laboratory Tests 03/29/19 16:55 Calcium Level 9.1, Aspartate Amino Transf (AST/SGOT) 18, Alanine Aminotransferase (ALT/SGPT) 20, Alkaline Phosphatase 159 H, Total Bilirubin 0.4, Total Protein 6.7, Albumin 2.8 L Assessment/Plan 1. Discitis. This is apparently been developing over the past 6 weeks, was worsening back pain. Lesion is identified on CT scan. Culture was positive. MSSA was isolated. Per sensitivities. Nafcillin was recommended as antibiotic. Patient has remarkable allergy to penicillins. Patient has been placed on Vanco for now and we will likely need to discuss her coverage with infectious disease service. She will likely require long-term IV antibiotics. 2. Pain. The patient had been using increasing dosages of opiate. We will continue to attempt to manage her pain appropriately. 3. Multiple myeloma. Per discussion with her oncologist, this is not an active process at this time. She is in remission. 4. Uterine lesion. The patient underwent evaluation by ultrasound that showed thickening of the endometrial stripe to at least 7.5 mm. Patient will need to be seen by [facility] for probable endometrial biopsy. Patient wishes to defer until this current issue of discitis is controlled. 5. Chronic atrial fibrillation. The patient remains on rate control medication inclusive of digoxin and flecain rehan. She is on anticoagulation with Xarelto. Plan / VTE VTE Prophylaxis Ordered?: Yes (patient is already on Xarelto) VTE Exclusion Mechanical Proph: N/A:VTE Prophy Ordered VTE Exclusion Pharmacological: N/A:VTE Prophy Ordered Plan Diet: Continue Current Activity: Continue Current Therapy: PT (patient may require physical therapy to manage mobility in the presence of back pain) Medications: Start Antibiotics Respiratory: Wean Oxygen (the patient has weaned herself off home O2 at home.) Diagnostics: Check Labs, Repeat Labs in AM Anticipated Discharge: Home Advanced Directives: MOLST Form is available (the patient has a MOLST form within the computer record signed in January 2019. However, the patient states she was "forced" to sign it by nursing staff and wishes to revoke it.) ROBE CARNEY MD Mar 29, 2019 21:23
[2019-03-29 22:00] VITALS: BP 104/56
--- NOTE | 2019-03-29 22:03 | PHACANCOPD ---
PHARMACY VANCOMYCIN DOSING Pt Demographics Demographics Patient Age:73 , Weight:75.300 , Gender: female Adjusted Body Weight Date: 03/29/19, Adjusted Body Weight: Kg Events Past 24 Hours Events Past 24 Hours: NO: Dialysis, Diuretic Therapy, Change in CrCl, Fever, Elevation in WBC, Pending Diagnostics, Pending Procedures, Other Vancomycin Vancomycin indication: BONE AND JOINT Vancomycin Target Ranges: 10-20 mcg/ml Vancomycin Load Y/N: Yes Load Dose Date Time Vancomycin Load Dose: 1.5 GRAM Date: 03/29/19 Time: 2000 Vancomycin Dose Date: 03/29/19. Current Vancomycin Dose: [1 GRAM Q24] Intermittent Dosing?: No Labs Labs Item Value Date Time Lactic Acid Level 2.2 MMOL/L *H 03/29/19 1655 Lactic Acid Followup at 4 Hours 1.9 MMOL/L 03/29/192120 Creatinine Clearance Date:03/29/19. Creatinine Clearance: [38 Ml/MIN]. Assessment and Plan Maintaining Current Dose?: Yes Reason for dose change: No Dose Change Pharmacist Note Pharmacist Note Date: 03/29/19. Pharmacist note: Patient presented to the hospital and was subsequently diagnosed with discitis. She was started on a 1.5 gram load with a maintenance dose of 1 gram every 24 hours based upon a January 2019 consult. A trough level was scheduled one hour prior to the third dose. We will continue to monitor and adjust as needed. STAS BARRY PHARMACY Mar 29, 2019 22:03
[2019-03-29] MEDS: VANCOMYCIN HCL 1,000 MG, VIAL MATE ADAPTER 1 EACH in D5W 250 ML IV SCH (22:18)
[2019-03-29] MEDS: FLECAINIDE 50MG TABLET PO SCH (22:19)
[2019-03-29] MEDS: LEVEMIR (INSULIN DETEMIR) 1 UNITS/0.01ML SC SCH (22:19)
[2019-03-30 01:15] VITALS: BP 128/68
[2019-03-30] MEDS ORDERED: oxyCODONE 5MG TAB PO ONE (02:30)
[2019-03-30] MEDS: LORazepam 1 MG TAB PO PRN ×2 (03:54→14:52)
[2019-03-30] MEDS: LEVOTHYROXINE 75MCG TABLET (0.075MG) PO SCH (05:36)
[2019-03-30] MEDS: oxyCODONE 5MG TAB PO SCH ×3 (05:37→16:37)
[2019-03-30] MEDS: PINK BISMUTH SUSP 524MG/30ML ORAL SYRINGE PO PRN ×2 (05:41→18:03)
[2019-03-30 06:00] VITALS: BP 138/69
[2019-03-30 07:09] LABS: ALBUMIN 2.7 GM/DL (3.2-5.2); ALT/SGPT 18 U/L (12-78); BILIRUBIN,TOTAL 0.4 MG/DL (0.2-1.0); BLOOD UREA NITROGEN 11 MG/DL (7-18); C REACTIVE PROTEIN QUANTITATIV 2.79 MG/DL (0.00-0.30); CALCIUM LEVEL 9.3 MG/DL (8.8-10.2); CARBON DIOXIDE LEVEL 28 MEQ/L (21-32); CHLORIDE LEVEL 102 MEQ/L (98-107); CREATININE FOR GFR 0.95 MG/DL (0.55-1.30); GLOMERULAR FILTRATION RATE > 60.0 (>39); GLUCOSE, FASTING 75 MG/DL (70-100); SODIUM LEVEL 137 MEQ/L (136-145); TOTAL PROTEIN 6.9 GM/DL (6.4-8.2)
[2019-03-30] MEDS: HumaLOG INSULIN (NovoLOG) PER UNIT SC SCH ×4 (07:30→21:00)
[2019-03-30] MEDS ORDERED: POTASSIUM CHLORIDE 10 MEQ SR TABLET PO ONE (07:30)
[2019-03-30] MEDS: FLECAINIDE 50MG TABLET PO SCH ×2 (07:57→21:23)
[2019-03-30] MEDS: VITAMIN D 1,000 INTERNATIONAL UNITS TABLET PO SCH (07:57)
[2019-03-30] MEDS: COLESEVELAM 625 MG TAB (WELCHOL) PO SCH (07:57)
[2019-03-30] MEDS: POTASSIUM CHLORIDE 10 MEQ SR TABLET PO SCH (07:57)
[2019-03-30] MEDS: FUROSEMIDE 40 MG TAB PO SCH ×2 (07:58→21:23)
[2019-03-30] MEDS: DIGOXIN 0.125 MG TAB PO SCH (07:59)
[2019-03-30] MEDS: ACETAMINOPHEN TAB 650MG DOSE (2X325MG) PO PRN ×2 (13:09→21:23)
[2019-03-30 14:00] VITALS: BP 121/62
--- NOTE | 2019-03-30 17:08 | IPNPDOC ---
Text Note Date of Service The patient was seen on 03/30/19. NOTE Ms. Urbina is a 73-year-old female admitted with a diagnosis of discitis. It appears to be due to MSSA. This was determined from a recent biopsy. Patient had had prior bacteremia associated with her infusion port in December of this year; patient has underlying history of multiple myeloma that is in remission. The port has since been removed. Objective: Please see vital signs below HENT: Neck is supple, there is no adenopathy or thyromegaly, oral mucosa is moist, she does not have scleral injection Cardiovascular: Regular rate and rhythm with a normal S1 and S2 and no appre ciable murmur or bruit. Pulmonary: Clear to auscultation, no significant cough or wheezing. Abdomen: Soft, nontender, moderate central obesity, relative to her overall body habitus. Extremities: No peripheral edema or lesions ASSESSMENT/PLAN: 1. Discitis. The patient has had worsening back pain over the past 6 weeks. Lesion was identified on CT scan with subsequent percutaneous biopsy of a soft tissue mass at T8. Culture was positive for MSSA. Patient is currently on vancomycin as she has remarkable allergy to penicillins. We will discuss her coverage with infectious disease service. She will likely require long-term IV antibiotics. Patient does not want a PICC line, but report for her to have an infusion port. The patient had a prior port that was removed. It is likely the source of her seeding to her spine. Would be better if we could wait until she has negative blood cultures and then place some sort of line access. It is been explained to her that she will likely need antibiotic therapy for 4-6 weeks. She is stating that she does not want to do the infusions herself. We will need to discuss this with the infectious disease service with regard to choice of agent, length of treatment, and mode of delivery. 2. Pain control. Patient complains of remarkable pain. We have increased the dose of her oxycodone. If this does not help her. We will consult with the pain management team. 3. Multiple myeloma. Per her oncologist this is not an active process at this time; she is in remission. Patient has had persistent question of recurrence. I have located a pathology report that was just released yesterday. It is reporting diffuse plasmacytic infiltrates neutrophilic infiltrates with myeloma and superimposed acute inflammation/infection. I will contact the patient's oncologist regarding these results. 4. Uterine lesion. Patient does have thickened endometrial stripe. She will need to be seen by [facility]ED [facility] for endometrial biopsy. Patient wishes to defer for now. 5. Chronic atrial fibrillation. Patient's rate remains controlled on digoxin and flecainide. She remains on chronic anticoagulation with Xarelto. VS,Fishbone, I+O VS, Fishbone, I+O Laboratory Tests 03/30/19 06:10 Calcium Level 9.3, Aspartate Amino Transf (AST/SGOT) 12, Alanine Aminotransferase (ALT/SGPT) 18, Alkaline Phosphatase 141 H, Total Bilirubin 0.4, Total Protein 6.9, Albumin 2.7 L Vital Signs Date Time Temp Pulse Resp B/P (MAP) Pulse Ox O2 Delivery O2 Flow Rate FiO2 03/30/19 16:37 18 03/30/19 14:00 98.0 63 121/62 (81) 97 I&O- Last 24 Hours up to 6 AM 03/30/19 06:00 Intake Total 2030 ml Output Total 900 ml Balance 1130 ml ROBE CARNEY MD Mar 30, 2019 17:08
[2019-03-30 20:00] VITALS: BP 129/67
[2019-03-30] MEDS: LEVEMIR (INSULIN DETEMIR) 1 UNITS/0.01ML SC SCH (21:00)
[2019-03-30] MEDS: RIVAROXABAN 20 MG TAB (XARELTO) PO SCH (21:23)
[2019-03-30] MEDS: VANCOMYCIN HCL 1,000 MG, VIAL MATE ADAPTER 1 EACH in D5W 250 ML IV SCH (21:25)
[2019-03-30] MEDS: SITagliptin 50 MG TAB (JANUVIA) PO SCH (22:29)
[2019-03-30] MEDS ORDERED: LEVEMIR (INSULIN DETEMIR) 1 UNITS/0.01ML SC ONE (23:00)
[2019-03-31] MEDS: oxyCODONE 5MG TAB PO SCH ×4 (00:18→17:59)
[2019-03-31] MEDS: LORazepam 1 MG TAB PO PRN ×3 (00:22→22:05)
[2019-03-31 06:00] VITALS: BP 131/65
[2019-03-31] MEDS: LEVOTHYROXINE 75MCG TABLET (0.075MG) PO SCH (06:12)
[2019-03-31] MEDS: HumaLOG INSULIN (NovoLOG) PER UNIT SC SCH ×4 (07:30→21:00)
[2019-03-31] MEDS: COLESEVELAM 625 MG TAB (WELCHOL) PO SCH (08:00)
[2019-03-31] MEDS ORDERED: POTASSIUM CHLORIDE 10 MEQ SR TABLET PO ONE (08:00)
[2019-03-31] MEDS: VITAMIN D 1,000 INTERNATIONAL UNITS TABLET PO SCH (08:14)
[2019-03-31] MEDS: FLECAINIDE 50MG TABLET PO SCH ×2 (08:15→22:04)
[2019-03-31] MEDS: DIGOXIN 0.125 MG TAB PO SCH (08:16)
[2019-03-31] MEDS: FUROSEMIDE 40 MG TAB PO SCH ×2 (08:16→21:00)
[2019-03-31] MEDS: POTASSIUM CHLORIDE 10 MEQ SR TABLET PO SCH (08:17)
[2019-03-31] MEDS: ACETAMINOPHEN TAB 650MG DOSE (2X325MG) PO PRN (09:31)
[2019-03-31] MEDS: NYSTATIN OINTMENT 15 GM TOP SCH ×2 (13:42→21:00)
[2019-03-31] MEDS: SENNA 8.6 MG TAB (SENOKOT) PO SCH (13:42)
[2019-03-31 14:00] VITALS: BP 113/54
[2019-03-31 14:18] LABS: BASO % 0.3 % (0.0-1.0); EOS # 0.1 10^3/uL (0.0-0.5); EOS % 0.8 % (0.0-3.0); HEMOGLOBIN 9.4 g/dl (12.0-15.5); LYMPH # 1.2 10^3/uL (1.5-5.0); LYMPH % 9.6 % (24.0-44.0); MEAN CORPUSCULAR HEMOGLOBIN 32.1 pg (27.0-33.0); MEAN CORPUSCULAR HGB CONC 31.3 g/dl (32.0-36.5); MEAN CORPUSCULAR VOLUME 102.4 fl (80.0-96.0); MONO # 0.8 10^3/uL (0.0-0.8); MONO % 6.7 % (0.0-5.0); NEUTROPHILS # 9.8 10^3/uL (1.5-8.5); NEUTROPHILS % 81.7 % (36.0-66.0); PLATELET COUNT, AUTOMATED 179 10^3/uL (150-450); RED BLOOD COUNT 2.93 10^6/uL (4.00-5.40)
--- NOTE | 2019-03-31 14:38 | IPNPDOC ---
Text Note Date of Service The patient was seen on 03/31/19. NOTE SUBJECTIVE: Ms. Urbina feeling somewhat better today. She notes improved pain control with the increased dosage of oxycodone. The patient is admitted with discitis. MSSA was isolated from a biopsy of a soft tissue mass at T8. She has an underlying history of multiple myeloma. OBJECTIVE: Please see vital signs below HENT: Neck is supple, there is no adenopathy or thyromegaly, oral mucosa is moist, she does not have scleral injection Cardiovascular: Regular rate and rhythm with a normal S1 and S2 and no appreciable murmur or bruit. Pulmonary: Clear to auscultation, no significant cough or wheezing. Abdomen: Soft, nontender, moderate central obesity, relative to her overall body habitus. Extremities: No peripheral edema or lesions Neuro: No focal neuromotor or sensory deficits. Psych: Patient does have some anxiety and distress that is appropriate in this scenario ASSESSMENT/PLAN: 1. Discitis. The patient has had worsening back pain over the past 6 weeks. Lesion was identified on CT scan with subsequent percutaneous biopsy of a soft tissue mass at T8. Culture was positive for MSSA. Patient is currently on vancomycin as she has remarkable allergy to penicillins. We will discuss her coverage with infectious disease service. She will likely require long-term IV antibiotics. Patient does not want a PICC line; she would prefer a Port-A-Cath. The patient had a prior port that was removed. It is likely the source of her seeding to her spine. It would be better if we could wait until she has negative blood cultures and then place some sort of line access. It has been explained to her that she will likely need antibiotic therapy for 4-6 weeks. She is stating that she does not want to do the infusions herself. We will need to discuss this with the inf ectious disease service with regard to choice of agent, length of treatment, and mode of delivery. 2. Pain control. Patient complains of remarkable pain. We have increased the dose of her oxycodone, which appears to have been quite helpful. 3. Multiple myeloma. Per her oncologist this is not an active process at this time; she is in remission. Patient has had persistent question of recurrence. I have located a pathology report that was just released yesterday. It is reporting diffuse plasmacytic infiltrates neutrophilic infiltrates with myeloma and superimposed acute inflammation/infection. I have contacted the oncology office; I wasn't able to speak with the oncologist and so I have left a message. VS,Fishbone, I+O VS, Fishbone, I+O Laboratory Tests 03/31/19 14:04 Red Blood Count 2.93 L, Mean Corpuscular Volume 102.4 H, Mean Corpuscular H emoglobin 32.1, Mean Corpuscular Hemoglobin Concent 31.3 L, Red Cell Distribution Width 17.2 H, Neutrophils (%) (Auto) 81.7 H, Lymphocytes (%) (Auto) 9.6 L, Monocytes (%) (Auto) 6.7 H, Eosinophils (%) (Auto) 0.8, Basophils (%) (Auto) 0.3, Neutrophils # (Auto) 9.8 H, Lymphocytes # (Auto) 1.2 L, Monocytes # (Auto) 0.8, Eosinophils # (Auto) 0.1, Basophils # (Auto) 0.0 Vital Signs Date Time Temp Pulse Resp B/P (MAP) Pulse Ox O2 Delivery O2 Flow Rate FiO2 03/31/19 12:47 16 03/31/19 08:16 78 03/31/19 06:00 99.4 131/65 (87) 95 I&O- Last 24 Hours up to 6 AM 03/31/19 06:00 Intake Total 1790 ml Output Total 3800 ml Balance -2009 ml ROBE CARNEY MD Mar 31, 2019 14:38
[2019-03-31 14:57] LABS: ALBUMIN 2.9 GM/DL (3.2-5.2); BILIRUBIN,TOTAL 0.5 MG/DL (0.2-1.0); CALCIUM LEVEL 9.8 MG/DL (8.8-10.2); CREATININE FOR GFR 1.02 MG/DL (0.55-1.30); GLOMERULAR FILTRATION RATE 56.9 (>39); POTASSIUM SERUM 4.1 MEQ/L (3.5-5.1); TOTAL PROTEIN 6.7 GM/DL (6.4-8.2)
[2019-03-31 18:00] VITALS: BP 120/48
--- NOTE | 2019-03-31 20:27 | CR ---
DATE OF CONSULTATION: 03/31/2019 CONSULTING PHYSICIAN: Dr. Mendez REASON FOR CONSULTATION: Discitis. HISTORY OF PRESENT ILLNESS: This is a 73-year-old female with a pertinent past medical history of multiple myeloma, currently in remission, recent pacemaker placement on February 17, 2019, recent hospitalization for methicillin sensitive Staphylococcus aureus (MSSA) bacteremia in December 2018, history of stage 1 lung cancer with moderate differentiated adenocarcinoma, who presented to the emergency room on 03/29/2019 for back pain. She states that after her last discharge in January that 2 weeks later she started having crushing constant back pain that started from her lower back and radiated up toward the middle back. She describes the pain as "labor pain" that is very constant. She was unable to sleep and the pain would wake her up in the night. She states that she was evaluated by multiple providers. She had recent imaging done in the emergency room of the abdomen and pelvis on 03/22/2019, which showed abnormal soft tissue surrounding the T8-T9 vertebral bodies, more on the right side with a maximum thickness of 2 cm. She had a bone biopsy done on 03/25/2019, which was positive for MSSA and then she came to the emergency room for IV antibiotics for discitis management. In her last two hospitalizations, the patient did have a history of a port that was removed in December because of her MSSA bacteremia, which she completed 14 days of Ancef antibiotics. During that hospitalization, she also had tachybrady syndrome with significant asystole and had a dual chamber pacemaker placed by Dr. Oconnell on 01/18/2019. She had 3 days of ceftriaxone prior to discharge. PAST MEDICAL HISTORY: 1. Multiple myeloma, in remission. 2. 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 3. Chronic diastolic congestive heart failure (CHF). 4. Chronic kidney disease stage III. 5. Paroxysmal atrial fibrillation, recent cardioversion 3 to 4 weeks ago and ablation, currently on Xarelto for chronic anticoagulation. 6. Hypothyroidism. 7. Type 2 diabetes. 8. Osteoporosis. 9. 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 10. History of right sided heart failure with severe pulmonary hypertension. 11. Recent MSSA bacteremia in December 2018. 12. History of tachybrady syndrome with significant asystole, status post dual chamber pacemaker placement in December 2018. PAST SURGICAL HISTORY: 1. Parathyroidectomy. 2. Tonsillectomy with adenoidectomy. 3. Left knee surgery. 4. Right lobectomy. 5. Pacemaker placement in December 2018. 6. Chemotherapy port insertion and removal in December 2018. FAMILY HISTORY: Significant for heart disease, hypertension, and atrial fibrillation. SOCIAL HISTORY: Former smoker, quit smoking 40 years ago. Rare social alcohol drinker. Denies any IV drug use or illicit drug use. 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 HOME MEDICATIONS: - Bisoprolol 10 mg by mouth twice a day - vitamin D3 2000 units by mouth daily - Welchol 3.75 grams by mouth daily - Farxiga 5 mg by mouth daily - digoxin 0.125 mg by mouth daily - flecainide 100 mg by mouth twice a day - furosemide 40 mg by mouth twice a day - Levemir 40 units at night - Synthroid 75 mcg by mouth daily - multivitamin two chews by mouth daily - potassium chloride 20 mEq by mouth daily - rivaroxaban 20 mg by mouth at night - Januvia 100 mg by mouth at night - ciprofloxacin 500 mg by mouth twice a day completed 7 days prior to admission - lorazepam 1 mg by mouth four times a day as needed for anxiety - oxycodone 5 mg by mouth four times a day as needed for pain ALLERGIES: SHELLFISH causes severe swelling, PENICILLIN causes intermediate rash, LATEX causes intermediate rash, DABIGATRAN causes mild itching, CODEINE causes adverse reaction of stomach upset. REVIEW OF SYSTEMS: CONSTITUTIONAL: Denies any weight change, fevers, chills, fatigue, malaise. Some night sweats due to pain. ENT: Denies hearing changes, ear pain, nasal congestion, sinus pain, hoarseness, rhinorrhea, eye discharge, vision change. CARDIOVASCULAR: Denies chest pain, shortness of breath, paroxysmal nocturnal dyspnea, dyspnea on exertion, orthopnea, claudication, lower extremity edema. RESPIRATORY: Denies cough, shortness of breath, sputum, wheezing. GASTROINTESTINAL: Denies nausea, vomiting, diarrhea, constipation, heartburn. GENITOURINARY: Denies dysuria or blood in her urine. MUSCULOSKELETAL: Admits to back pain but denies any other joint pain, joint stiffness, or injury. SKIN: Denies any skin lesions. NEUROLOGIC: Denies any numbness, weakness, paresthesias, loss of consciousness, syncope, dizziness, or headaches. PSYCHIATRIC: Admits to a history of anxiety. Denies depression or insomnia. No memory issues. HEMATOLOGY: Denies bruising or bleeding. ENDOCRINE: Denies polyuria, polydipsia or temperature intolerance. PHYSICAL EXAMINATION: VITAL SIGNS: Temperature 98.0, pulse 70, respirations 18, blood pressure 113/54 (73), pulse oximetry 91% on room air. GENERAL: This is a very pleasant 73-year-old female who does not appear in acute distress, appropriately answering questions, lying comfortably in her bed and using no accessory muscles. HEENT: Atraumatic, normocephalic. Pupils are equal, round and reactive. Moist mucous membranes. No lymphadenopathy or jugular venous distention (JVD) noted. CARDIOVASCULAR: Regular rate and rhythm. Normal S1, S2 sounds with no audible murmurs, rubs or gallops. LUNGS: Clear to auscultation bilaterally. No audible wheezing, rhonchi or rales. CHEST: Pacemaker in place in the left upper chest wall, does not look irritated and nontender to touch. No discharge noted. ABDOMEN: Positive bowel sounds in all four quadrants. No tenderness on palpation. EXTREMITIES: No lower extremity edema. Normal pulses. No tenderness on calves. NEUROLOGIC: Normal speech. No focal deficits noted. BACK: Tenderness on palpation between T4 to T10, mainly at the T8 area. Recent biopsy site can be seen with minimal scab on top. No erythema or discharge noted around the site. No increased erythema on the back. No swelling noted. LABORATORY DATA: WBC 12.0, hemoglobin 9.4, hematocrit 30.0, platelets 179, ESR 126. Chemistries: Sodium 142, potassium 4.1, chloride 100.8, carbon dioxide 27, BUN 9, creatinine 1.02, fasting glucose 120, C-reactive protein 2.79, procalcitonin 0.17. Microbiology: Surgical biopsy of the T8 vertebral body positive for MSSA. IMAGING: From 03/22/2019 was reviewed and showed no evidence of renal or ureteral calculi. No hydroureteronephrosis. Normal appendix. No free air or free fluid. Abnormal soft tissue surrounding the T8 and T9 vertebral body, more so on the right, maximum thickness on the right is 2 cm, this was a CT of the abdomen and pelvis without contrast. ASSESSMENT AND PLAN: This is a 73-year-old female with a pertinent past medical history of multiple myeloma, currently in remission, recent pacemaker placement in December 2018, recent MSSA bacteremia in December 2018, recent cardioversion 3 to 4 weeks prior for a history of atrial fibrillation, who came in complaining of back pain. The patient will be managed for the following problems: 1. Back pain secondary to T8 discitis confirmed on surgical bone biopsy. Cultures were positive for MSSA. She was started on vancomycin while she was admitted. We will discontinue this and we will start her on cefazolin 2 grams every 8 hours. The patient will need to be on antibiotics for 6 weeks and end date will be 05/12/2019. 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 We put a patient and family services (PFS) consultation in. Because of the possibility of the patient having remission of her multiple myeloma, she requests to have a port placement done versus a peripherally inserted central catheter (PICC) placement and she requests that it be done by Dr. Escboar, who did her last port placement. Primary team can reach out to Dr. Escobar to see if he can have this placed on Thursday or Thursday. She also has a request because she does not like to have every 8 hours antibiotics, she would request to be on daptomycin, which is every 24 hours. If we can get insurance approval for daptomycin, we will give 750 mg every 24 hours.
[2019-03-31] MEDS: LEVEMIR (INSULIN DETEMIR) 1 UNITS/0.01ML SC SCH (21:00)
[2019-03-31] MEDS: RIVAROXABAN 20 MG TAB (XARELTO) PO SCH (22:04)
[2019-03-31] MEDS: DOCUSATE SODIUM 100 MG CAP PO SCH (22:04)
[2019-03-31] MEDS: SITagliptin 50 MG TAB (JANUVIA) PO SCH (22:05)
[2019-03-31] MEDS: PINK BISMUTH SUSP 524MG/30ML ORAL SYRINGE PO PRN (22:13)
[2019-04-01] MEDS: oxyCODONE 5MG TAB PO SCH ×4 (00:18→18:22)
[2019-04-01] MEDS: ACETAMINOPHEN TAB 650MG DOSE (2X325MG) PO PRN (03:38)
[2019-04-01] MEDS: LEVOTHYROXINE 75MCG TABLET (0.075MG) PO SCH (05:42)
[2019-04-01 06:00] VITALS: BP 118/56
[2019-04-01 06:12] LABS: BASO % 0.2 % (0.0-1.0); EOS # 0.1 10^3/uL (0.0-0.5); HEMATOCRIT 29.2 % (36.0-47.0); LYMPH # 1.2 10^3/uL (1.5-5.0); LYMPH % 11.4 % (24.0-44.0); MEAN CORPUSCULAR HEMOGLOBIN 30.9 pg (27.0-33.0); MEAN CORPUSCULAR HGB CONC 30.8 g/dl (32.0-36.5); MEAN CORPUSCULAR VOLUME 100.3 fl (80.0-96.0); MONO # 0.7 10^3/uL (0.0-0.8); MONO % 6.9 % (0.0-5.0); NEUTROPHILS # 8.2 10^3/uL (1.5-8.5); NEUTROPHILS % 79.4 % (36.0-66.0); PLATELET COUNT, AUTOMATED 192 10^3/uL (150-450); RED BLOOD COUNT 2.91 10^6/uL (4.00-5.40); WHITE BLOOD COUNT 10.3 10^3/uL (4.0-10.0)
[2019-04-01 06:29] LABS: CALCIUM LEVEL 9.9 MG/DL (8.8-10.2); CREATININE FOR GFR 1.04 MG/DL (0.55-1.30); GLOMERULAR FILTRATION RATE 55.6 (>39); POTASSIUM SERUM 3.6 MEQ/L (3.5-5.1)
[2019-04-01 07:25] LABS: ERYTHROCYTE SEDIMENTATION RATE 109 mm/hr (0-30)
[2019-04-01] MEDS: COLESEVELAM 625 MG TAB (WELCHOL) PO SCH (08:00)
[2019-04-01] MEDS: HumaLOG INSULIN (NovoLOG) PER UNIT SC SCH ×4 (08:36→21:00)
[2019-04-01] MEDS: VITAMIN D 1,000 INTERNATIONAL UNITS TABLET PO SCH (08:37)
[2019-04-01] MEDS: POTASSIUM CHLORIDE 10 MEQ SR TABLET PO SCH (08:37)
[2019-04-01] MEDS: DIGOXIN 0.125 MG TAB PO SCH (08:38)
[2019-04-01] MEDS: FUROSEMIDE 40 MG TAB PO SCH ×2 (08:38→17:00)
[2019-04-01] MEDS: SENNA 8.6 MG TAB (SENOKOT) PO SCH (08:38)
[2019-04-01] MEDS: FLECAINIDE 50MG TABLET PO SCH ×2 (08:38→22:48)
[2019-04-01] MEDS: DOCUSATE SODIUM 100 MG CAP PO SCH ×2 (08:38→22:47)
[2019-04-01] MEDS: NYSTATIN OINTMENT 15 GM TOP SCH ×2 (08:39→21:00)
[2019-04-01] MEDS: LORazepam 1 MG TAB PO PRN ×2 (10:15→22:47)
[2019-04-01 14:00] VITALS: BP 132/65
--- NOTE | 2019-04-01 15:41 | IPNPDOC ---
Text Note Date of Service The patient was seen on 04/01/19. NOTE The patient is having some back pain and poor sleep. Patient is admitted with discitis due to MSSA. She has underlying history of multiple myeloma. OBJECTIVE: Please see vital signs below HENT: Neck is supple, there is no adenopathy or thyromegaly, oral mucosa is moist, she does not have scleral injection Cardiovascular: Regular rate and rhythm with a normal S1 and S2 and no appreciable murmur or bruit. Pulmonary: Clear to auscultation, no significant cough or wheezing. Abdomen: Soft, nontender, moderate central obesity, relative to her overall body habitus. Extremities: No peripheral edema or lesions Back: No focal tenderness to vertebral spine, she has some very mild paravertebral tenderness Neuro: No focal neuromotor or sensory deficits. Skin: No rashes or jaundice ASSESSMENT/PLAN: 1. Discitis. The patient has had worsening back pain over the past 6 weeks. Lesion was identified on CT scan with subsequent percutaneous biopsy of a soft tissue mass at T8. Culture was positive for MSSA. Patient is currently on vancomycin as she has remarkable allergy to penicillins. She has been transitioned to Ancef per the infectious disease service. Patient does not want a PICC line; she would prefer a Port-A-Cath. The patient had a prior port that was removed. It is likely the source of her seeding to her spine. It would be better if we could wait until she has negative blood cultures and then place some sort of line access. It has been explained to her that she will likely need antibiotic therapy for 4-6 weeks. 2. Pain control. Patient complained of remarkable pain. We have increased the dose of her oxycodone, which appears to have been quite helpful. 3. Multiple myeloma. Per her oncologist this is not an active process at this time; she is in yeison ssion. Patient has had persistent question of recurrence. I have located a pathology report that was just released. It is reporting diffuse plasmacytic infiltrates neutrophilic infiltrates with myeloma and superimposed acute inflammation/infection. Per discussion with her oncologist while myeloma is present it is minimally active. Protein studies are essentially negative. She does not require active treatment at this time. 4. Atrial fibrillation. Patient remains on chronic anticoagulation with Xarelto. 5. Dbm-sfyzqxc-rilquhzot diabetes mellitus. Blood sugars remain controlled on current agents and sliding scale insulin. 6. Chronic kidney disease stage III. Creatinine remains stable. VS,Fishbone, I+O VS, Fishbone, I+O Laboratory Tests 04/01/19 05:51 Red Blood Count 2.91 L, Mean Corpuscular Volume 100.3 H, Mean Corpuscular Hemoglobin 30.9, Mean Corpuscular Hemoglobin Concent 30.8 L, Red Cell Distribution Width 17.2 H, Neutrophils (%) (Auto) 79.4 H, Lymphocytes (%) (Auto) 11.4 L, Monocytes (%) (Auto) 6.9 H, Eosinophils (%) (Auto) 1.0, Basophils (%) (Auto) 0.2, Neutrophils # (Auto) 8.2, Lymphocytes # (Auto) 1.2 L, Monocytes # (Auto) 0.7, Eosinophils # (Auto) 0.1, Basophils # (Auto) 0.0, Calcium Level 9.9 Vital Signs Date Time Temp Pulse Resp B/P (MAP) Pulse Ox O2 Delivery O2 Flow Rate FiO2 04/01/19 14:00 97.6 86 18 132/65 (87) 98 04/01/19 12:28 3.0 I&O- Last 24 Hours up to 6 AM0 04/01/19 06:00 Intake Total 3417 ml Output Total 1550 ml Balance 1867 ml ROBE CARNEY MD Apr 01, 2019 15:41
[2019-04-01] MEDS ORDERED: FUROSEMIDE 40 MG TAB PO SCH (17:00)
[2019-04-01] MEDS: MUPIROCIN 2% OINT 22 GM TUBE TOP SCH (17:03)
--- NOTE | 2019-04-01 17:36 | IPN ---
DATE: 04/01/2019 Mrs. Urbina is feeling better. Her back pain has improved. Pain is being controlled with increased doses of oxycodone. She has no nausea, vomiting or diarrhea. She was actually constipated from narcotics. She is on IV cefazolin without any side effects. PHYSICAL EXAMINATION: Temperature is 97.7, pulse 84, respirations 20, blood pressure 118/56, oxygen saturation 96% on room air. HEART: Normal S1, S2. No murmurs. LUNS: Clear. No wheezes, rales or rhonchi. Diminished at the bases. ABDOMEN: Morbidly obese, soft, nontender. BACK: No costovertebral angle (CVA) tenderness. She definitely has T8-9 tenderness with some radiation bilaterally to both flanks. EXTREMITIES: No clubbing, cyanosis or edema. Normal motor strength. LABORATORY DATA: White count is 10.3, hemoglobin 9, hematocrit 29.2, platelets 192, 79% neutrophils, 11% lymphocytes, 7% monocytes. Sedimentation rate is 109. Sodium 137, potassium 3.6, chloride 104, bicarbonate 27, BUN 9, creatinine 1.04, glucose 136, calcium 9.9, CRP is 2.79. Blood cultures on 03/31/2019: No growth after 24 hours. Urine cultures: No growth. IMPRESSION: 1. T8 discitis with culture positive for methicillin-sensitive Staphylococcus aureus (MSSA), on IV cefazolin. The patient will need six weeks of IV antibiotics. Most likely, the source of the infection started on her previous admission when she had MSSA bacteremia, probably from a line infection. 2. Multiple myeloma, currently in remission. PLAN: The patient was to have an Asnbai-L-Jgxw placed in anticipation of possibly needing more chemotherapy. I did recommend a peripherally inserted central catheter (PICC) line but she is adamant about having an Ybiizz-L-Wony replaced and wants to have Dr. Constantine Escobar as the surgeon who places the Nxwmja-A-Pyic. Please consult Dr. Escobar for Eouyip-C-Puph placement. I did discuss plan with patient and family services (PFS), Sorin Youssef, regarding IV antibiotics at home for six weeks, cefazolin 2 grams every eight hours versus daptomycin 750 mg every 24 hours. The patient would rather have an infusion once a day rather than every eight hours. This further will be discussed once we get the insurance authorization. Xamgnn-B-Qhls insertion hopefully on Thursday. Since the patient is a methicillin-sensitive Staphylococcus aureus (MSSA) carrier, I would recommend she uses Hibiclens body wash five days before surgery along with mupirocin cream intranasally.
[2019-04-01] MEDS: SITagliptin 50 MG TAB (JANUVIA) PO SCH (21:00)
[2019-04-01 22:00] VITALS: BP 130/54
[2019-04-01] MEDS: PINK BISMUTH SUSP 524MG/30ML ORAL SYRINGE PO PRN (22:45)
[2019-04-01] MEDS: LEVEMIR (INSULIN DETEMIR) 1 UNITS/0.01ML SC SCH (22:46)
[2019-04-01] MEDS: RIVAROXABAN 20 MG TAB (XARELTO) PO SCH (22:47)
[2019-04-02] MEDS: oxyCODONE 5MG TAB PO SCH ×4 (00:14→17:14)
[2019-04-02 06:00] VITALS: BP 116/56
[2019-04-02] MEDS: LEVOTHYROXINE 75MCG TABLET (0.075MG) PO SCH (06:08)
[2019-04-02 06:48] LABS: HEMATOCRIT 30.4 % (36.0-47.0); HEMOGLOBIN 9.2 g/dl (12.0-15.5); MEAN CORPUSCULAR HEMOGLOBIN 30.6 pg (27.0-33.0); MEAN CORPUSCULAR HGB CONC 30.3 g/dl (32.0-36.5); PLATELET COUNT, AUTOMATED 179 10^3/uL (150-450); RED BLOOD COUNT 3.01 10^6/uL (4.00-5.40); WHITE BLOOD COUNT 9.9 10^3/uL (4.0-10.0)
[2019-04-02 07:05] LABS: CALCIUM LEVEL 9.5 MG/DL (8.8-10.2); CREATININE FOR GFR 1.04 MG/DL (0.55-1.30); GLOMERULAR FILTRATION RATE 55.6 (>39); POTASSIUM SERUM 3.3 MEQ/L (3.5-5.1)
[2019-04-02] MEDS: HumaLOG INSULIN (NovoLOG) PER UNIT SC SCH ×4 (07:30→20:08)
[2019-04-02] MEDS: COLESEVELAM 625 MG TAB (WELCHOL) PO SCH (07:51)
[2019-04-02] MEDS: FUROSEMIDE 40 MG TAB PO SCH ×2 (07:51→17:13)
[2019-04-02] MEDS: DOCUSATE SODIUM 100 MG CAP PO SCH ×2 (07:51→20:09)
[2019-04-02] MEDS: VITAMIN D 1,000 INTERNATIONAL UNITS TABLET PO SCH (07:51)
[2019-04-02] MEDS: FLECAINIDE 50MG TABLET PO SCH ×2 (07:51→20:08)
[2019-04-02] MEDS: NYSTATIN OINTMENT 15 GM TOP SCH ×2 (07:52→20:09)
[2019-04-02] MEDS: LORazepam 1 MG TAB PO PRN ×2 (07:52→20:07)
[2019-04-02] MEDS: DIGOXIN 0.125 MG TAB PO SCH (07:52)
[2019-04-02] MEDS: SENNA 8.6 MG TAB (SENOKOT) PO SCH (07:52)
[2019-04-02] MEDS: POTASSIUM CHLORIDE 10 MEQ SR TABLET PO SCH ×2 (07:53→20:07)
[2019-04-02] MEDS ORDERED: FLUCONAZOLE 50MG TABLET PO ONE (12:00)
[2019-04-02 14:00] VITALS: BP 135/63
--- NOTE | 2019-04-02 14:54 | IPNPDOC ---
Text Note Date of Service The patient was seen on 04/02/19. NOTE Ms. Urbina is comfortable. She is admitted for management and treatment of di scitis due to MSSA. She has underlying multiple myeloma that is in remission. She has been on IV antibiotics; currently Ancef. She does complain of significant vaginal itching and discomfort consistent with vaginitis. OBJECTIVE: Please see below for vital signs HENT: Neck is supple, there is no adenopathy or thyromegaly, oral mucosa is moist, she does not have scleral injection Cardiovascular: Regular rate and rhythm with a normal S1 and S2 and no appreciable murmur or bruit. Pulmonary: Clear to auscultation, no significant cough or wheezing. Abdomen: Soft, nontender, moderate central obesity, relative to her overall body habitus. Extremities: No peripheral edema or lesions Back: No focal tenderness to vertebral spine, she has some very mild paravertebral tenderness Neuro: No focal neuromotor or sensory deficits. Skin: No rashes or jaundice ASSESSMENT/PLAN: 1. Discitis. The patient has had worsening back pain over the past 6 weeks. Lesion was identified on CT scan with subsequent percutaneous biopsy of a soft tissue mass at T8. Culture was positive for MSSA. Patient had been on vancomycin as she has remarkable allergy to penicillins. She has been transitioned to Ancef per the infectious disease service. Patient does not want a PICC line; she would prefer a Port-A-Cath. The patient had a prior port that was removed. It is likely the source of her seeding to her spine. It would be better if we could wait until she has negative blood cultures and then place some sort of line access. It has been explained to her that she will likely need antibiotic therapy for 4-6 week s. Appreciate input and assistance from infectious disease service. Blood cultures are negative at 48 hours. 2. Pain control. Patient complained of remarkable pain. We have increased the dose of her oxycodone, which appears to have been quite helpful. 3. Multiple myeloma. Per her oncologist this is not an active process at this time; she is in remission. Patient has had persistent question of recurrence. I have located a pathology report that was just released. It is reporting diffuse plasmacytic infiltrates neutrophilic infiltrates with myeloma and superimposed acute inflammation/infection. Per discussion with her oncologist while myeloma is present it is minimally active. Protein studies are essentially negative. She does not require active treatment at this time. 4. Atrial fibrillation. Patient remains on chronic anticoagulation with Xarelto. 5. Zcw-ltyboon-tljfidenu diabetes mellitus. Blood sugars remain controlled on current agents and sliding scale insulin. 6. Chronic kidney disease stage III. Creatinine remains stable. 7. Vaginitis. Patient reporting symptoms consistent with fungal vaginitis. We will treat her with single dose Diflucan. VS,Fishbone, I+O VS, Fishbone, I+O Laboratory Tests 04/02/19 06:34 Red Blood Count 3.01 L, Mean Corpuscular Volume 101.0 H, Mean Corpuscular Hemoglobin 30.6, Mean Corpuscular Hemoglobin Concent 30.3 L, Red Cell Distribution Width 17.6 H, Calcium Level 9.5 Vital Signs Date Time Temp Pulse Resp B/P (MAP) Pulse Ox O2 Delivery O2 Flow Rate FiO2 04/02/19 12:28 18 04/02/19 07:52 80 04/02/19 06:00 97.6 116/56 (76) 94 04/01/19 12:28 3.0 I&O- Last 24 Hours up to 6 AM 04/02/19 06:00 Intake Total 3076 ml Output Total 4950 ml Balance -1874 ml ROBE CARNEY MD Apr 02, 2019 14:54
[2019-04-02] MEDS: MUPIROCIN 2% OINT 22 GM TUBE TOP SCH (17:15)
[2019-04-02] MEDS: RIVAROXABAN 20 MG TAB (XARELTO) PO SCH (20:08)
[2019-04-02] MEDS: LEVEMIR (INSULIN DETEMIR) 1 UNITS/0.01ML SC SCH (20:08)
[2019-04-02] MEDS: SITagliptin 50 MG TAB (JANUVIA) PO SCH (20:09)
[2019-04-02 22:00] VITALS: BP 123/95
[2019-04-03] MEDS: oxyCODONE 5MG TAB PO SCH ×4 (00:14→17:38)
[2019-04-03] MEDS: LORazepam 1 MG TAB PO PRN ×3 (03:13→22:26)
[2019-04-03 06:00] VITALS: BP 97/59
[2019-04-03 06:22] LABS: HEMOGLOBIN 9.2 g/dl (12.0-15.5); MEAN CORPUSCULAR HEMOGLOBIN 31.2 pg (27.0-33.0); MEAN CORPUSCULAR HGB CONC 30.7 g/dl (32.0-36.5); MEAN CORPUSCULAR VOLUME 101.7 fl (80.0-96.0); PLATELET COUNT, AUTOMATED 181 10^3/uL (150-450); RED BLOOD COUNT 2.95 10^6/uL (4.00-5.40)
[2019-04-03 06:50] LABS: CALCIUM LEVEL 8.7 MG/DL (8.8-10.2); CREATININE FOR GFR 1.06 MG/DL (0.55-1.30); GLOMERULAR FILTRATION RATE 54.4 (>39); POTASSIUM SERUM 3.5 MEQ/L (3.5-5.1)
[2019-04-03] MEDS: HumaLOG INSULIN (NovoLOG) PER UNIT SC SCH ×4 (07:02→21:00)
[2019-04-03] MEDS: LEVOTHYROXINE 75MCG TABLET (0.075MG) PO SCH (07:07)
[2019-04-03] MEDS: NYSTATIN OINTMENT 15 GM TOP SCH ×2 (07:35→21:00)
[2019-04-03] MEDS: DOCUSATE SODIUM 100 MG CAP PO SCH ×2 (07:35→21:00)
[2019-04-03] MEDS: SENNA 8.6 MG TAB (SENOKOT) PO SCH (09:00)
[2019-04-03] MEDS: COLESEVELAM 625 MG TAB (WELCHOL) PO SCH (09:03)
[2019-04-03] MEDS: VITAMIN D 1,000 INTERNATIONAL UNITS TABLET PO SCH (09:05)
[2019-04-03] MEDS: FUROSEMIDE 40 MG TAB PO SCH ×2 (09:05→17:37)
[2019-04-03] MEDS: POTASSIUM CHLORIDE 10 MEQ SR TABLET PO SCH ×2 (09:05→21:58)
[2019-04-03] MEDS: FLECAINIDE 50MG TABLET PO SCH ×2 (09:05→21:58)
[2019-04-03] MEDS: DIGOXIN 0.125 MG TAB PO SCH (09:08)
[2019-04-03 14:00] VITALS: BP 112/64
--- NOTE | 2019-04-03 14:40 | IPNPDOC ---
Text Note Date of Service The patient was seen on 04/03/19. NOTE Ms. Urbina is resting comfortably. She is sleeping well and her pain is contr olled. She is afebrile. Patient is admitted with MSSA discitis. She has underlying multiple myeloma that is in remission. Objective: Please see below for vital signs HENT: Neck is supple, there is no adenopathy or thyromegaly, oral mucosa is moist, she does not have scleral injection Cardiovascular: Regular rate and rhythm with a normal S1 and S2 and no appreciable murmur or bruit. Pulmonary: Clear to auscultation, no significant cough or wheezing. Abdomen: Soft, nontender, moderate central obesity, relative to her overall body habitus. Extremities: No peripheral edema or lesions Back: No focal tenderness to vertebral spine, she has some very mild paravertebral tenderness Neuro: No focal neuromotor or sensory deficits. Skin: No rashes or jaundice ASSESSMENT/PLAN: 1. Discitis. The patient has had worsening back pain over the past 6 weeks. Lesion was identified on CT scan with subsequent percutaneous biopsy of a soft tissue mass at T8. Culture was positive for MSSA. Patient had been on vancomycin as she has remarkable allergy to penicillins. She has been transitioned to Ancef per the infectious disease service. Patient does not want a PICC line; she would prefer a Port-A-Cath. The patient had a prior port that was removed. It is likely the source of her seeding to her spine. It would be better if we could wait until she has negative blood cultures and then place some sort of line access. We will contact Dr. Escobar in the morning. It has been explained to her that she will likely need antibiotic therapy for 4-6 weeks. Appreciate input and assistance from infectious disease service. Blood cultures are negative at 48 - 72 hours. 2. Pain control. Patient complained of remarkable back pain. We have increased the dose of her oxycodone, which appears to have been quite helpful. 3. Multiple myeloma. Patient had had persistent questions regarding recurrence. I have located a pathology report that was just released. It is reporting diffuse plasmacytic infiltrates neutrophilic infiltrates with myeloma and superimposed acute inflammation/infection. Per discussion with her oncologist while myeloma is present it is minimally active. Protein studies are essentially negative. She does not require active treatment at this time. 4. Atrial fibrillation. Patient remains on chronic anticoagulation with Xarelto. 5. Erg-srrkmxm-wicfjsxmr diabetes mellitus. Blood sugars remain controlled on current agents and sliding scale insulin. 6. Chronic kidney disease stage III. Creatinine remains stable. 7. Vaginitis. We have treated her with a single dose of Diflucan. VS,Fishbone, I+O VS, Fishbone, I+O Laboratory Tests 04/03/19 05:50 Red Blood Count 2.95 L, Mean Corpuscular Volume 101.7 H, Mean Corpuscular Hemoglobin 31.2, Mean Corpuscular Hemoglobin Concent 30.7 L, Red Cell Distribution Width 17.4 H, Calcium Level 8.7 L Vital Signs Date Time Temp Pulse Resp B/P (MAP) Pulse Ox O2 Delivery O2 Flow Rate FiO2 04/03/19 13:45 16 04/03/19 09:08 93 04/03/19 06:00 99.6 97/59 (72) 94 04/01/19 12:28 3.0 I&O- Last 24 Hours up to 6 AM 04/03/19 05:59 Intake Total 1490 ml Output Total 1900 ml Balance -410 ml ROBE CARNEY MD Apr 03, 2019 14:40
[2019-04-03] MEDS: MUPIROCIN 2% OINT 22 GM TUBE TOP SCH (17:37)
[2019-04-03] MEDS: RIVAROXABAN 20 MG TAB (XARELTO) PO SCH (21:00)
[2019-04-03] MEDS: SITagliptin 50 MG TAB (JANUVIA) PO SCH (21:00)
[2019-04-03] MEDS: LEVEMIR (INSULIN DETEMIR) 1 UNITS/0.01ML SC SCH (21:59)
[2019-04-03 22:00] VITALS: BP 104/57
[2019-04-04] MEDS: oxyCODONE 5MG TAB PO SCH ×5 (00:31→23:30)
[2019-04-04 06:00] VITALS: BP 106/59
[2019-04-04] MEDS: LEVOTHYROXINE 75MCG TABLET (0.075MG) PO SCH (06:00)
[2019-04-04 06:17] LABS: HEMATOCRIT 29.4 % (36.0-47.0); MEAN CORPUSCULAR HEMOGLOBIN 31.7 pg (27.0-33.0); MEAN CORPUSCULAR HGB CONC 30.6 g/dl (32.0-36.5); MEAN CORPUSCULAR VOLUME 103.5 fl (80.0-96.0); PLATELET COUNT, AUTOMATED 164 10^3/uL (150-450); RED BLOOD COUNT 2.84 10^6/uL (4.00-5.40); WHITE BLOOD COUNT 8.9 10^3/uL (4.0-10.0)
[2019-04-04 06:36] LABS: CREATININE FOR GFR 1.02 MG/DL (0.55-1.30); GLOMERULAR FILTRATION RATE 56.9 (>39); POTASSIUM SERUM 3.4 MEQ/L (3.5-5.1)
[2019-04-04] MEDS: HumaLOG INSULIN (NovoLOG) PER UNIT SC SCH ×4 (07:30→21:00)
[2019-04-04] MEDS: COLESEVELAM 625 MG TAB (WELCHOL) PO SCH ×2 (08:00→08:35)
[2019-04-04] MEDS: VITAMIN D 1,000 INTERNATIONAL UNITS TABLET PO SCH (08:35)
[2019-04-04] MEDS: POTASSIUM CHLORIDE 10 MEQ SR TABLET PO SCH ×2 (08:35→21:36)
[2019-04-04] MEDS: FUROSEMIDE 40 MG TAB PO SCH ×2 (08:35→18:56)
[2019-04-04] MEDS: LORazepam 1 MG TAB PO PRN ×2 (08:35→18:59)
[2019-04-04] MEDS: FLECAINIDE 50MG TABLET PO SCH ×2 (08:35→21:36)
[2019-04-04] MEDS: DOCUSATE SODIUM 100 MG CAP PO SCH ×4 (08:36→21:41)
[2019-04-04] MEDS: SENNA 8.6 MG TAB (SENOKOT) PO SCH ×2 (08:36→08:51)
[2019-04-04] MEDS: DIGOXIN 0.125 MG TAB PO SCH (08:36)
[2019-04-04] MEDS: NYSTATIN OINTMENT 15 GM TOP SCH ×2 (08:39→21:00)
[2019-04-04 14:00] VITALS: BP 109/59
--- NOTE | 2019-04-04 17:29 | IPNPDOC ---
Text Note Date of Service The patient was seen on 04/04/19. NOTE Ms. Urbina is awake, alert and conversant. She is afebrile. Patient is admitted with MSSA discitis. She has underlying multiple myeloma that is in remission. Daughter is at bedside during visit. Objective: Please see below for vital signs HENT: Neck is supple, there is no adenopathy or thyromegaly, oral mucosa is moist, she does not have scleral injection Cardiovascular: Regular rate and rhythm with a normal S1 and S2 and no appreciable murmur or bruit. Pulmonary: Clear to auscultation, no significant cough or wheezing. Abdomen: Soft, nontender, moderate central obesity, relative to her overall body habitus. Extremities: No peripheral edema or lesions Back: No focal tenderness to vertebral spine, she has some very mild paravertebral tenderness Neuro: No focal neuromotor or sensory deficits. Skin: No rashes or jaundice ASSESSMENT/PLAN: 1. Discitis. The patient has had worsening back pain over the past 6 weeks. Lesion was identified on CT scan with subsequent percutaneous biopsy of a soft tissue mass at T8. Culture was positive for MSSA. Patient had been on vancomycin as she has remarkable allergy to penicillins. She had been transitioned to Ancef per the infectious disease service; she is now on daptomycin for once a day dosing. Patient does not want a PICC line; she would prefer a Port-A-Cath. The patient had a prior port that was removed. It is likely the source of her seeding to her spine. It would be better if we could wait until she has negative blood cultures and then place some sort of line access. It has been explained to her that she will likely need antibiotic therapy for 4-6 weeks. Appreciate input and assistance from infectious disease service. Blood cultures are negative at 48 - 72 hours. Plans are for interventional radiology to place her Ixcbbv-a-Iupj. 2. Pain control. Patient complained of remarkable back pain. We have increased the dose of her oxycodone, which appears to have been quite helpful. 3. Multiple myeloma. Patient had had persistent questions regarding recurrence. I have located a pathology report that was just released. It is reporting diffuse plasmacytic infiltrates neutrophilic infiltrates with myeloma and superimposed acute inflammation/infection. Per discussion with her oncologist while myeloma is present it is minimally active. Protein studies are essentially negative. She does not require active treatment at this time. 4. Atrial fibrillation. Patient remains on chronic anticoagulation with Xarelto. 5. Bnk-ovgbhja-lsjnbsszz diabetes mellitus. Blood sugars remain controlled on current agents and sliding scale insulin. 6. Chronic kidney disease stage III. Creatinine remains stable. 7. Vaginitis. We have treated her with a single dose of Diflucan. Disposition: Anticipate patient can be discharged to home once the port is placed and once there is prescription for her daptomycin dose and course duration. VS,Josebone, I+O VS, Fishbone, I+O Laboratory Tests 04/04/19 05:59 Red Blood Count 2.84 L, Mean Corpuscular Volume 103.5 H, Mean Corpuscular Hemoglobin 31.7, Mean Corpuscular Hemoglobin Concent 30.6 L, Red Cell Distribution Width 17.6 H, Calcium Level 9.0 Vital Signs Date Time Temp Pulse Resp B/P (MAP) Pulse Ox O2 Delivery O2 Flow Rate FiO2 04/04/19 14:00 98.5 92 20 109/59 (76) 95 04/01/19 12:28 3.0 I&O- Last 24 Hours up to 6 AM 04/04/19 06:00 Intake Total 1620 ml Output Total 3475 ml Balance -1855 ml ROBE CARNEY MD Apr 04, 2019 17:29
[2019-04-04] MEDS: MUPIROCIN 2% OINT 22 GM TUBE TOP SCH (18:56)
[2019-04-04] MEDS: SITagliptin 50 MG TAB (JANUVIA) PO SCH ×3 (21:00→21:39)
[2019-04-04] MEDS: RIVAROXABAN 20 MG TAB (XARELTO) PO SCH (21:00)
[2019-04-04] MEDS ORDERED: DAPTOmycin 750 MG in NS 50 ML IV SCH (21:00)
[2019-04-04] MEDS: LEVEMIR (INSULIN DETEMIR) 1 UNITS/0.01ML SC SCH (21:37)
--- NOTE | 2019-04-04 21:49 | IPN ---
DATE: 04/04/2019 INFECTIOUS DISEASE PROGRESS NOTE Mrs. Urbina is anxious to go home tomorrow. Her Ogwiin-Q-Jcnd will be placed in interventional radiology tomorrow. She has no fever or chills. No nausea, vomiting or diarrhea. Her back pain is fairly well controlled. PHYSICAL EXAMINATION: Heart: Normal S1, S2. No murmurs. Lungs are clear. No wheezes, rales or rhonchi. Abdomen: Obese, soft, nontender. Back: Mid-thoracic tenderness around T8 with mild paravertebral tenderness. Extremities: No clubbing, cyanosis or edema. No rashes. IMPRESSION: Methicillin-sensitive Staphylococcus aureus (MSSA) discitis, on IV cefazolin - doing well. The patient would like to go home on once a day IV antibiotic and therefore, will be switched to daptomycin at a dose of 8-10 mg/kg. Dose on home discharge will be 750 mg IV daily. Multiple myeloma. PLAN: [facility] home infusion visited the patient today, did the teaching regarding home IV antibiotics. The patient will be discharged home tomorrow after Mrnrwk-I-Lvif. She will have blood work done every week, CBC, CMP, CRP and CPK to monitor for myopathy. The patient was advised of side effect of medication including myopathy, acute kidney injury, allergic reactions. AUDRA
[2019-04-04 22:00] VITALS: BP 114/61
[2019-04-05] MEDS: LORazepam 1 MG TAB PO PRN ×2 (01:19→08:36)
[2019-04-05] MEDS: LEVOTHYROXINE 75MCG TABLET (0.075MG) PO SCH (05:18)
[2019-04-05] MEDS: oxyCODONE 5MG TAB PO SCH ×2 (05:19→12:24)
[2019-04-05 05:58] VITALS: BP 119/58
[2019-04-05 06:06] LABS: HEMATOCRIT 30.4 % (36.0-47.0); HEMOGLOBIN 9.3 g/dl (12.0-15.5); MEAN CORPUSCULAR HEMOGLOBIN 31.8 pg (27.0-33.0); MEAN CORPUSCULAR HGB CONC 30.6 g/dl (32.0-36.5); MEAN CORPUSCULAR VOLUME 104.1 fl (80.0-96.0); PLATELET COUNT, AUTOMATED 181 10^3/uL (150-450); RED BLOOD COUNT 2.92 10^6/uL (4.00-5.40); WHITE BLOOD COUNT 9.4 10^3/uL (4.0-10.0)
[2019-04-05 06:31] LABS: BLOOD UREA NITROGEN 8 MG/DL (7-18); CALCIUM LEVEL 8.8 MG/DL (8.8-10.2); CARBON DIOXIDE LEVEL 28 MEQ/L (21-32); CHLORIDE LEVEL 104 MEQ/L (98-107); CREATININE FOR GFR 0.95 MG/DL (0.55-1.30); GLOMERULAR FILTRATION RATE > 60.0 (>39); GLUCOSE, FASTING 114 MG/DL (70-100); POTASSIUM SERUM 3.4 MEQ/L (3.5-5.1); SODIUM LEVEL 138 MEQ/L (136-145)
[2019-04-05] MEDS: COLESEVELAM 625 MG TAB (WELCHOL) PO SCH (08:00)
[2019-04-05] MEDS ORDERED: POTASSIUM CHLORIDE 10 MEQ SR TABLET PO ONE (08:00)
[2019-04-05] MEDS: HumaLOG INSULIN (NovoLOG) PER UNIT SC SCH ×2 (08:35→12:00)
[2019-04-05] MEDS ORDERED: BUPIVACAINE HCL 0.5% 10 ML VIAL As Ordered ONE (08:35)
[2019-04-05] MEDS ORDERED: LIDOCAINE 2% MDV 20 ML VIAL As Ordered ONE (08:35)
[2019-04-05] MEDS: POTASSIUM CHLORIDE 10 MEQ SR TABLET PO SCH (08:36)
[2019-04-05] MEDS: VITAMIN D 1,000 INTERNATIONAL UNITS TABLET PO SCH (08:36)
[2019-04-05] MEDS: FLECAINIDE 50MG TABLET PO SCH (08:36)
[2019-04-05] MEDS: DOCUSATE SODIUM 100 MG CAP PO SCH ×2 (08:36→08:41)
[2019-04-05] MEDS: DIGOXIN 0.125 MG TAB PO SCH (08:37)
[2019-04-05] MEDS: FUROSEMIDE 40 MG TAB PO SCH (08:37)
[2019-04-05] MEDS: NYSTATIN OINTMENT 15 GM TOP SCH (08:42)
[2019-04-05] MEDS ORDERED: DAPTOmycin 750 MG in NS 50 ML IV SCH (09:00)
--- NOTE | 2019-04-05 10:00 | ROOPDOC ---
[facility] Report Of Operation Report of Operation DATE OF PROCEDURE: 04/05/2019 PREOPERATIVE DIAGNOSIS: Multiple myeloma, discitis. POSTOPERATIVE DIAGNOSIS: Multiple myeloma, discitis. PROCEDURE: Ultrasound guided right internal jugular vein cannulation. Fluoroscopic guided right internal jugular vein tunneled central venous catheter with subcutaneous port placement with placement of a power injectable [employer] Gar[employer]ales Power Port with 22 centimeter length catheter. SURGEON: Dr. Jameson Cristobal M.D. [employer] RECEIVING CLERK: Francheska Pinto ANESTHESIA: Local with 20 mL of 2% lidocaine mixed with 0.5% Marcaine. SEDATION TIME: None. ANTIBIOTICS: Patient already was on daptomycin FLUOROSCOPY TIME: 0.1 minutes. CONTRAST: None. ESTIMATED BLOOD LOSS: 10 mL. IV FLUID: 50 mL. COMPLICATIONS: None. DRAINS: None. SPECIMENS: None. IMPLANTS: Right internal jugular vein tunneled central venous catheter with subcutaneous port placement using a Bard Gar[place]ales Power Port which is power injectable. INDICATION: Patient is a 73-year-old female with a history of multiple myeloma red previously undergone placement of a port for treatment now has discitis will require long-term IV antibiotics and will undergo placement of a new port for c entral venous access for long-term IV antibiotic therapy at home.. Patient will undergo a right tunneled central venous catheter placement with subcutaneous port. Procedure was described and explained to the patient in detail including drawing of pictures showing the procedure and anatomy associated with insertion of the tunneled central venous catheter was subcutaneous port. Risks, benefits, and alternative treatment options were discussed with the patient. Alternative treatment options included, but were not limited to, no intervention. Benefits included, but were not limited to, access for chemotherapy infusion centrally, avoiding recurrent venous cannulations , IV placements and sclerosis of peripheral veins. Risks included, but were not limited to, infection, bleeding, pneumothorax, hemothorax, possible need for further open surgical intervention, renal failure requiring hemodialysis, failure of the tunneled central venous catheter with subcutaneous port to function requiring evaluation, revision and/or replacement, adverse and/or allergic reaction to the sedation medications and/or local anesthetics, anesthetic and sedation complication, possible need for transfusion of blood products, allergic reaction and/or complication from the prepping and draping materials, bruising, scarring, cerebrovascular accident, myocardial infarction, pulmonary embolus, deep venous thrombosis, poor satisfaction, poor results, poor outcome, loss of limb and loss of life. Risks of not performing the port insertion included but were not limited to inability to gain access for chemotherapy, inability to gain access for blood draws and laboratory evaluation, sclerosis and thrombophlebitis of peripheral veins and pain associated with continued peripheral cannulations. Patient's questions were answered. Patient voices understanding of these risks, benefits, and alternative treatment options. Patient voices acceptance of the risks associated with placement of a central venous tunneled catheter with subcutaneous port placement and consents to proceed with tunneled central venous catheter with subcutaneous port placement. No guarantees or promises were made to the patient regarding the results or outcome of the procedure. DESCRIPTION OF PROCEDURE: Patient was taken to the angiography suite, placed supine on the angiography room table, and prepped and draped in a standard surgical fashion. A time-out was conducted by myself and the team members involved in the procedure, confirming the correct procedure, patient, and laterality. Ultrasound was then used to evaluate the right internal jugular vein, which was noted to be easily compressible, widely patent, and free of thrombus. Ultrasound was then used to guide cannulation of the right internal jugular vein with a micropuncture needle with real-time concurrent visualization of the entry of the needle into the right internal jugular vein with a hardcopy image preserved. The skin overlying the right internal jugular vein was anesthetized with 2% lidocaine mixed with 0.5% Marcaine prior to cannulation. Once the right internal jugular vein was cannulated, the micropuncture wire was advanced through the micropuncture needle, which was up-sized to a micropuncture sheath. A J wire was advanced through the micropuncture sheath. The right internal jugular vein was then dilated under fluoroscopic guidance, and a #8-Somali introducer sheath was positioned through the right internal jugular vein into the superior vena cava. The wire was removed, and the #8-Somali single lumen catheter, which had been tunneled from a puncture wound in the right chest and brought out at the puncture wound at the right internal jugular vein entry site, was advanced through the introducer sheath under fluoroscopic guidance. The introducer sheath was then removed, and the catheter was positioned with the tip in the superior vena cava/right atrial junction under fluoroscopic guidance. The catheter was cut to a length of 22 cm and attached to the port. A pocket was created in the right chest after anesthetizing the overlying tissue with 2% lidocaine mixed with 0.5% Marcaine. The port was placed in the pocket and cannulated using an access needle. The port was noted to aspirate and flush easily and then was flushed with heparinized saline. The incision in the chest was closed using # 4-0 Monocryl suture in inverted interrupted fashion. The puncture wound in the right neck was closed using a #4-0 Monocryl in inverted interrupted fashion. Steri-Strips and dressings were applied. Patient tolerated the procedure well. All instrument, sponge, and needle counts were correct at the end of the case. There were no complications. Dr. Cristobal was present for and directed the entire case. Patient was transferred to the recovery area and subsequently discharged in stable condition. The tunneled central venous catheter with subcutaneous port is stable for use for access. RADIOLOGIC SUPERVISION AND INTERPRETATION: The ultrasound showed the right internal jugular vein to be easily compressible, widely patent, and free of thrombus. Ultrasound was used to guide cannulation of the right internal jugular vein with real-time concurrent visualization of the entry of the needle into the right internal jugular vein. The right internal jugular vein was then dilated under fluoroscopic guidance with a #8-Somali introducer sheath placed under fluoroscopic guidance. The 8 Somali single lumen catheter was advanced through the introducer sheath positioned with the tip in the superior vena/right atrial junction using fluoroscopic guidance with final fluoroscopic image showing the catheter and port to be in good position and good alignment with the tip in the superior vena cava/right atrial junction with no pneumo- or hemothorax noted. The tunneled central venous catheter with subcutaneous port is stable for use. Fritz Cristobal MD Apr 05, 2019 10:00
[2019-04-05 10:06] VITALS: BP 144/65
[2019-04-05] MEDS ORDERED: DAPT500I IV (11:07)
[2019-04-05] MEDS ORDERED: POTA20TA6 PO (11:07)
[2019-04-05] MEDS ORDERED: OXYC10TA12 PO (11:07)
--- NOTE | 2019-04-05 15:47 | DS.PDOC ---
Discharge Summary General Date of Admission Mar 30, 2019 at 17:11 Date of Discharge April 05, 2019 Specialist/Consultants Involve: Vinny Zapien MD Discharge Summary PROCEDURES PERFORMED DURING STAY: [Placement of Ukshpx-v-Dcla]. ADMITTING DIAGNOSES: 1. [Acute discitis]. DISCHARGE DIAGNOSES: 1. . COMPLICATIONS/CHIEF COMPLAINT: Discitis. HISTORY OF PRESENT ILLNESS: . HOSPITAL COURSE: . DISCHARGE MEDICATIONS: Please see below. ALLERGIES: Please see below. PHYSICAL EXAMINATION ON DISCHARGE: VITAL SIGNS: Please see below. GENERAL: HEENT: NECK: CARDIOVASCULAR EXAMINATION: RESPIRATORY EXAMINATION: ABDOMINAL EXAMINATION: EXTREMITIES: SKIN: NEUROLOGICAL EXAMINATION: PSYCHIATRIC EXAMINATION: LABORATORY DATA: Please see below. IMAGING: PROGNOSIS: ACTIVITY: [As tolerated]. DIET: DISCHARGE PLAN: DISPOSITION: 01 Home, Self-Care. DISCHARGE INSTRUCTIONS: 1. . ITEMS TO FOLLOWUP ON ON OUTPATIENT: 1. . DISCHARGE CONDITION: [Stable]. TIME SPENT ON DISCHARGE: Greater than minutes. Vital Signs/I&Os Vital Signs Date Time Temp Pulse Resp B/P (MAP) Pulse Ox O2 Delivery O2 Flow Rate FiO2 04/05/19 12:24 19 04/05/19 10:06 86 98 04/05/19 09:45 2 04/05/19 08:49 99.4 04/05/19 05:58 119/58 (78) I&O- Last 24 Hours up to 6 AM 04/05/19 06:00 Intake Total 1370 ml Output Total 2150 ml Balance -780 ml Laboratory Data Labs 24H Laboratory Tests 2 04/04/19 16:55: Bedside Glucose (Misc Panel) 96 04/04/19 21:11: Bedside Glucose (Misc Panel) 132H 04/05/19 05:41: Nucleated Red Blood Cells % (auto) 0.0, Anion Gap 6L, Glomerular Filtration Rate > 60.0, Blood Urea Nitrogen 8, Creatinine 0.95, Sodium Level 138, Potassium Level 3.4L, Chloride Level 104, Carbon Dioxide Level 28, Calcium Level 8.8 CBC/BMP Laboratory Tests 04/05/19 05:41 Red Blood Count 2.92 L, Mean Corpuscular Volume 104.1 H, Mean Corpuscular Hemoglobin 31.8, Mean Corpuscular Hemoglobin Concent 30.6 L, Red Cell Distribution Width 17.6 H, Calcium Level 8.8 FSBS Laboratory Tests Test 04/04/19 16:55 04/04/19 21:11 Range/Units Bedside Glucose (Misc Panel) 96 132 83-110 MG/DL Microbiology Microbiology 03/31/19 Blood Culture - Final, Complete NO GROWTH AFTER 5 DAYS 03/31/19 Blood Culture - Final, Complete NO GROWTH AFTER 5 DAYS 03/30/19 Urine Culture - Final, Complete Discharge Medications Scheduled Bisoprolol Fumarate (Bisoprolol Fumarate) 10 Mg Tab, 10 MG PO BID, (Reported) Cholecalciferol (Vitamin D3) (Vitamin D3) 1,000 Unit Tab, 2,000 UNIT PO DAILY, (Reported) Colesevelam HCl (Welchol) 3.75 Gm Powd.pack, 3.75 GM PO DAILY, (Reported) Dapagliflozin Propanediol (Farxiga) 10 Mg Tab, 5 MG PO DAILY, (Reported) Daptomycin (Daptomycin) 500 Mg Vial, 500 MG IV DAILY Digoxin (Digoxin) 125 Mcg Tablet, 125 MCG PO DAILY, (Reported) Flecainide Acetate (Flecainide Acetate) 50 Mg Tablet, 100 MG PO BID, (Reported) Furosemide (Furosemide) 40 Mg Tablet, 40 MG PO BID, (Reported) Insulin Detemir (Levemir) 100 Unit/1 Ml Vial, 40 UNITS SC QHS, (Reported) Levothyroxine Sodium (Synthroid) 75 Mcg Tab, 75 MCG PO DAILY, (Reported) Multivitamin (Gummi Bear Multivitamin) 1 Each Tab.chew, 2 CHW PO DAILY, (Report ed) Potassium Chloride (Potassium Chloride) 20 Meq Tab.er.prt, 1 TAB PO BID Rivaroxaban (Xarelto) 20 Mg Tab, 20 MG PO QPM, (Reported) Sitagliptin Phosphate (Januvia) 100 Mg Tab, 100 MG PO QPM, (Reported) Scheduled PRN Lorazepam (Ativan) 1 Mg Tab, 1 MG PO QID PRN for ANXIETY/AGITATION, (Reported) Oxycodone HCl (Oxycodone HCl) 10 Mg Tablet, 10 MG PO QIDP PRN for pain Allergies Coded Allergies: shellfish derived (Verified Allergy, Severe, swelling, 10/26/18) Penicillins (Verified Allergy, Intermediate, rash, 10/26/18) latex (Verified Allergy, Intermediate, rash, 10/26/18) dabigatran etexilate (Verified Allergy, Mild, itching, 01/25/19) codeine (Verified Adverse Reaction, Mild, upset stomach, 10/26/18) ROBE CARNEY MD Apr 05, 2019 15:47
== END 2019-04-05 12:48 | disposition home health service (06) | DRG 347 ==
LOC: M MSPAV 15:02 → OBSVTOIN 03-30 17:11
PROVIDERS: ADMIT Internal Medicine; ATTEND Internal Medicine
PROC: 0JH63XZ Insertion of Tunneled Vascular Access Device into Chest Subcutaneous Tissue and Fascia, Percutaneous Approach (ICD-10-PCS; 2019-04-05)
PROC: 02HV33Z Insertion of Infusion Device into Superior Vena Cava, Percutaneous Approach (ICD-10-PCS; principal; 2019-04-05 09:00)
DX: M46.44 Discitis, unspecified, thoracic region (principal); I50.32 Chronic diastolic (congestive) heart failure; E11.22 Type 2 diabetes mellitus with diabetic chronic kidney disease; I27.29 Other secondary pulmonary hypertension; B95.61 Methicillin susceptible Staphylococcus aureus infection as the cause of diseases classified elsewhere; C90.01 Multiple myeloma in remission; I48.0 Paroxysmal atrial fibrillation; I48.2 Chronic atrial fibrillation; N18.3 Chronic kidney disease, stage 3 (moderate); R93.89 Abnormal findings on diagnostic imaging of other specified body structures; E03.9 Hypothyroidism, unspecified; M81.0 Age-related osteoporosis without current pathological fracture; N76.0 Acute vaginitis; Z90.2 Acquired absence of lung [part of]; Z85.118 Personal history of other malignant neoplasm of bronchus and lung; Z87.891 Personal history of nicotine dependence; Z95.0 Presence of cardiac pacemaker; Z79.84 Long term (current) use of oral hypoglycemic drugs; Z79.01 Long term (current) use of anticoagulants; Z79.899 Other long term (current) drug therapy; Z88.0 Allergy status to penicillin; Z88.5 Allergy status to narcotic agent; Z88.8 Allergy status to other drugs, medicaments and biological substances; Z91.013 Allergy to seafood; Z91.040 Latex allergy status

== ENCOUNTER → 2019-04-11 | Outpatient (REF) | payer OTHER ==
[~2019-04-11] MED LIST changes: +CEFA2INJ4 IV; +CEPH500C PO; +D3 H10002 PO; +DAPT500I IV; +DIGO0.123 PO; -DIGO0.25 PO; +DIGO0.253 PO; +FURO40TA2 PO; +GUMMCHW PO; +MORP15TA2 PO; +MORP15TASA PO; +MSIR30TA PO; +OXYC10TA12 PO; +PATIENT COMMENT; +POTA10TA14 PO; +POTA1TAB23 PO; +POTA20TA6 PO; +SENN-52 PO; -SIMV20TA2 OR; +SIMV20TA22 OR; +TRIA1CR80 TOP; +VITA100066 PO; +VITACHTA PO; +[UNRECOGNIZED DRUG - CODE] PO
[2019-04-11 11:33] LABS: BASO % 0.3 % (0.0-1.0); EOS # 0.2 10^3/uL (0.0-0.5); EOS % 2.4 % (0.0-3.0); HEMATOCRIT 31.3 % (36.0-47.0); HEMOGLOBIN 9.6 g/dl (12.0-15.5); LYMPH # 1.1 10^3/uL (1.5-5.0); LYMPH % 14.9 % (24.0-44.0); MEAN CORPUSCULAR HEMOGLOBIN 30.8 pg (27.0-33.0); MEAN CORPUSCULAR HGB CONC 30.7 g/dl (32.0-36.5); MEAN CORPUSCULAR VOLUME 100.3 fl (80.0-96.0); MONO # 0.5 10^3/uL (0.0-0.8); MONO % 6.2 % (0.0-5.0); NEUTROPHILS # 5.7 10^3/uL (1.5-8.5); NEUTROPHILS % 75.4 % (36.0-66.0); PLATELET COUNT, AUTOMATED 204 10^3/uL (150-450); RED BLOOD COUNT 3.12 10^6/uL (4.00-5.40); WHITE BLOOD COUNT 7.5 10^3/uL (4.0-10.0)
[2019-04-11 12:22] LABS: ALBUMIN 3.1 GM/DL (3.2-5.2); BILIRUBIN,TOTAL 0.6 MG/DL (0.2-1.0); C REACTIVE PROTEIN QUANTITATIV 3.21 MG/DL (0.00-0.30); CALCIUM LEVEL 9.4 MG/DL (8.8-10.2); CREATININE FOR GFR 1.13 MG/DL (0.55-1.30); GLOMERULAR FILTRATION RATE 50.5 (>39); TOTAL PROTEIN 6.7 GM/DL (6.4-8.2)
== END ==
LOC: M SHH 10:34 → M LAB REF 10:34
PROVIDERS: ATTEND Internal Medicine Infectious Disease
DX: M46.40 Discitis, unspecified, site unspecified (principal); A49.01 Methicillin susceptible Staphylococcus aureus infection, unspecified site

== ENCOUNTER → 2019-04-11 | Outpatient (CLI) | payer OTHER ==
[~2019-04-11] MED LIST changes: -CEFA2INJ4 IV; -D3 H10002 PO; +DIGO0.12 PO; -DIGO0.123 PO; +DIGO0.25 PO; -DIGO0.253 PO; -MORP15TA2 PO; -MORP15TASA PO; -MSIR30TA PO; -PATIENT COMMENT; -POTA1TAB23 PO; -SENN-52 PO; +SIMV20TA2 OR; -SIMV20TA22 OR; -TRIA1CR80 TOP; -VITA100066 PO; -VITACHTA PO; -[UNRECOGNIZED DRUG - CODE] PO
--- NOTE | 2019-04-11 15:10 | REP ---
Thoracic spine three views: Comparison is the thoracic spine CT dated 02/18/2019. Vertebral body heights and alignment are normal. There is mild disc space narrowing throughout the thoracic spine compatible with mild multilevel degenerative disc disease except at a single level in the lower thoracic spine where there is more pronounced disc space narrowing. The precise level cannot be determined on the lateral view because of the limited field of view. On the AP view, I suspect this may be the T8-9 level. Because of the clinical concern for diskitis followup MRI might be considered for further evaluation. Impression: Focally more pronounced disc space narrowing at the approximate T8-9 level. Because of the concern for diskitis follow-up thoracic spine MRI might be considered for further evaluation. Electronically Signed by Constantine Spann MD 04/11/2019 03:02 P
--- NOTE | 2019-04-13 07:35 | MEDONC ---
MEDICAL ONCOLOGY FOLLOWUP: DATE OF SERVICE: 04/11/2019 DIAGNOSIS: 1. IGG lambda multiple myeloma diagnosed November 2016 in clinical remission, ISS stage II, 30% plasma cells on diagnostic bone marrow biopsy at diagnosis. Baseline free lambda greater than 1000; status post induction RVD for eight cycles followed by complete CR. Complicated by grade 1 peripheral neuropathy. Maintenance Revlimid 12/14/2017 - 12/2018 held for pneumonia / sepsis December 2018. 2. Recent diagnosis of T8 diskitis made on biopsy of symptomatic rapidly appearing T8 paraspinal mass following weeks of complaint of pain. Path positive for plasmacytic infiltrates with a blunted abundant neutrophilic infiltrates favoring myeloma with superimposed infection, and microbiology / culture growing out MSSA now on IV antibiotics following hospitalization. 3. Unrelieved pain. Recently on oxycodone 10 mg four times a day reportedly with good pain control. He has recently run out of medication. INTERIM HISTORY: Javier is here for previously scheduled followup. She seen every 2 months for her myeloma. Clinically she has been in remission with very low free light chains and asymptomatic but in mid February developed back pain. Ultimately found to have a T8 diskitis was hospitalized, started on IV antibiotics and pain medication recently discharged. She follows with Dr. Zapien and labs were drawn at home three times a week. Her one and only concern today is getting a refill of her pain medications. She says she cannot stand it and unable to sleep. She is accompanied by her who also averse she needs new pain medication regimen. We reviewed what she was discharged with. I provided a 7-day supply of oxycodone 10 mg four times a day but in discussion with Dr. Zapien, I feel that perhaps her pain management for her diskitis may need to be with the different doc. REVIEW OF SYSTEMS: Pain as described above. Remainder of 12 system review negative. PHYSICAL EXAMINATION: Vital signs: Temperature afebrile and 96.5, blood pressure 152/84, heart rate 70, respiratory 18, O2 sat 99% weight 75 kg. Slight decrease from baseline. LABS: WBC 7.5, 75% neutrophils, hemoglobin 9.6, hematocrit 31, platelets 204. Electrolytes, liver functions normal, albumin 3.1, alk phos 132 myeloma labs pending. C-reactive protein 3.2 (parentheses significant drop from 11 on 03/11 but slight uptick versus 03/30). IMPRESSION: IgA lambda multiple myeloma diagnosed November 2016 status post induction VRD, not a candidate for stem cell transplant in clinical remission as of December 2018 when she has stopped the maintenance lenalidomide for infection. Subsequently had complicated hospitalization for staph sepsis and in and in February and March now diagnosed with thoracic diskitis with positive biopsy culturing staff. Myeloma plasma ascitic cells present but biochemically and remains in remission. PLAN: 1. Oxycodone 10 mg up to four times daily as needed for pain of abundant cautions given regarding the highly habit-forming nature of opioids even in the setting of need for analgesia. For perspective I relayed to Javier that once she is completing antibiotics. She should be well off pain meds. 2. I will follow up today's myeloma labs and if any significant new uptake will follow Javier more closely but otherwise will resume are every 2 months interval followup seeing her in 2 months with SPEP, serum free light chains quantitative immunoglobulins. Time statement 40 minutes qvlb-[id number] with the patient more than 50% involving counseling regarding pain medications discussing the patient's diskitis. Diagnosis answering the patient's questions prescribing 7 days supply, checking ISTOP and conferring with other physicians. Electronically Signed by Ольга Rogers MD 04/13/2019 06:12 P DD: Ольга Rogers MD 04/11/2019 03:51 P DT: marily 04/13/2019 07:21 A CC: Simba Dotson Jr, MD
== END ==
LOC: M RAD 14:28
PROVIDERS: ATTEND Internal Medicine Medical Oncology
DX: M46.46 Discitis, unspecified, lumbar region (principal)

== ENCOUNTER → 2019-04-18 | Outpatient (REF) | payer OTHER ==
[2019-04-18 13:57] LABS: BASO % 0.3 % (0.0-1.0); EOS # 0.2 10^3/uL (0.0-0.5); HEMATOCRIT 35.1 % (36.0-47.0); HEMOGLOBIN 10.8 g/dl (12.0-15.5); LYMPH # 1.4 10^3/uL (1.5-5.0); LYMPH % 11.6 % (24.0-44.0); MEAN CORPUSCULAR HEMOGLOBIN 31.5 pg (27.0-33.0); MEAN CORPUSCULAR HGB CONC 30.8 g/dl (32.0-36.5); MEAN CORPUSCULAR VOLUME 102.3 fl (80.0-96.0); MONO # 0.6 10^3/uL (0.0-0.8); MONO % 5.1 % (0.0-5.0); NEUTROPHILS # 9.5 10^3/uL (1.5-8.5); NEUTROPHILS % 80.1 % (36.0-66.0); PLATELET COUNT, AUTOMATED 249 10^3/uL (150-450); RED BLOOD COUNT 3.43 10^6/uL (4.00-5.40); WHITE BLOOD COUNT 11.9 10^3/uL (4.0-10.0)
[2019-04-18 14:12] LABS: CALCIUM LEVEL 9.4 MG/DL (8.8-10.2); CREATININE FOR GFR 1.22 MG/DL (0.55-1.30); GLOMERULAR FILTRATION RATE 46.3 (>39); POTASSIUM SERUM 3.7 MEQ/L (3.5-5.1)
[2019-04-18 14:13] LABS: ALBUMIN 3.3 GM/DL (3.2-5.2); BILIRUBIN,TOTAL 0.3 MG/DL (0.2-1.0); C REACTIVE PROTEIN QUANTITATIV 3.57 MG/DL (0.00-0.30); TOTAL PROTEIN 7.3 GM/DL (6.4-8.2)
== END ==
LOC: M SHH 13:21
PROVIDERS: ATTEND Internal Medicine Infectious Disease
DX: M46.40 Discitis, unspecified, site unspecified (principal)

== ENCOUNTER → 2019-04-25 | Outpatient (REF) | payer OTHER ==
[~2019-04-25] MED LIST changes: +CEFA2INJ4 IV; +D3 H10002 PO; -DIGO0.12 PO; +DIGO0.123 PO; -DIGO0.25 PO; +DIGO0.253 PO; +MORP15TA2 PO; +MORP15TASA PO; +MSIR30TA PO; +PATIENT COMMENT; +POTA1TAB23 PO; +SENN-52 PO; -SIMV20TA2 OR; +SIMV20TA22 OR; +TRIA1CR80 TOP; +VITA100066 PO; +VITACHTA PO; +[UNRECOGNIZED DRUG - CODE] PO
[2019-04-25 14:04] LABS: BASO # 0.1 10^3/uL (0.0-0.2); BASO % 0.4 % (0.0-1.0); EOS # 0.2 10^3/uL (0.0-0.5); EOS % 1.2 % (0.0-3.0); HEMATOCRIT 33.3 % (36.0-47.0); HEMOGLOBIN 10.1 g/dl (12.0-15.5); LYMPH # 1.3 10^3/uL (1.5-5.0); LYMPH % 10.9 % (24.0-44.0); MEAN CORPUSCULAR HEMOGLOBIN 30.9 pg (27.0-33.0); MEAN CORPUSCULAR HGB CONC 30.3 g/dl (32.0-36.5); MEAN CORPUSCULAR VOLUME 101.8 fl (80.0-96.0); MONO # 0.8 10^3/uL (0.0-0.8); MONO % 6.5 % (0.0-5.0); NEUTROPHILS # 9.7 10^3/uL (1.5-8.5); NEUTROPHILS % 80.2 % (36.0-66.0); PLATELET COUNT, AUTOMATED 246 10^3/uL (150-450); RED BLOOD COUNT 3.27 10^6/uL (4.00-5.40); WHITE BLOOD COUNT 12.1 10^3/uL (4.0-10.0)
[2019-04-25 14:30] LABS: ALBUMIN 3.1 GM/DL (3.2-5.2); BILIRUBIN,TOTAL 0.4 MG/DL (0.2-1.0); CALCIUM LEVEL 9.2 MG/DL (8.8-10.2); CREATININE FOR GFR 0.98 MG/DL (0.55-1.30); GLOMERULAR FILTRATION RATE 59.6 (>39); POTASSIUM SERUM 4.1 MEQ/L (3.5-5.1); TOTAL PROTEIN 6.9 GM/DL (6.4-8.2)
[2019-04-25 15:02] LABS: ERYTHROCYTE SEDIMENTATION RATE 95 mm/hr (0-30)
== END ==
LOC: M SHH 13:46
PROVIDERS: ATTEND Internal Medicine Infectious Disease
DX: A49.02 Methicillin resistant Staphylococcus aureus infection, unspecified site (principal); M46.40 Discitis, unspecified, site unspecified

== ENCOUNTER → 2019-05-02 | Outpatient (REF) | payer OTHER | LOC: M SFHCPLAZ 05-03 10:08 | PROVIDERS: ATTEND Internal Medicine Infectious Disease | DX: R19.7 Diarrhea, unspecified (principal) ==

== ENCOUNTER → 2019-05-02 | Outpatient (REF) | payer OTHER ==
[2019-05-02 14:14] LABS: BASO % 0.3 % (0.0-1.0); EOS # 0.1 10^3/uL (0.0-0.5); EOS % 0.9 % (0.0-3.0); HEMATOCRIT 33.2 % (36.0-47.0); HEMOGLOBIN 9.9 g/dl (12.0-15.5); LYMPH % 7.9 % (24.0-44.0); MEAN CORPUSCULAR HEMOGLOBIN 30.3 pg (27.0-33.0); MEAN CORPUSCULAR HGB CONC 29.8 g/dl (32.0-36.5); MEAN CORPUSCULAR VOLUME 101.5 fl (80.0-96.0); MONO # 0.8 10^3/uL (0.0-0.8); MONO % 6.8 % (0.0-5.0); NEUTROPHILS # 10.3 10^3/uL (1.5-8.5); NEUTROPHILS % 83.4 % (36.0-66.0); PLATELET COUNT, AUTOMATED 221 10^3/uL (150-450); RED BLOOD COUNT 3.27 10^6/uL (4.00-5.40); WHITE BLOOD COUNT 12.3 10^3/uL (4.0-10.0)
[2019-05-02 14:41] LABS: ALBUMIN 2.9 GM/DL (3.2-5.2); BILIRUBIN,TOTAL 0.5 MG/DL (0.2-1.0); C REACTIVE PROTEIN QUANTITATIV 4.62 MG/DL (0.00-0.30); CALCIUM LEVEL 8.9 MG/DL (8.8-10.2); CREATININE FOR GFR 1.1 MG/DL (0.55-1.30); GLOMERULAR FILTRATION RATE 52.1 (>39); POTASSIUM SERUM 3.7 MEQ/L (3.5-5.1); TOTAL PROTEIN 6.6 GM/DL (6.4-8.2)
[2019-05-02 14:49] LABS: ERYTHROCYTE SEDIMENTATION RATE 104 mm/hr (0-30)
== END ==
LOC: M LAB REF 13:40
PROVIDERS: ATTEND Internal Medicine Infectious Disease
DX: A49.02 Methicillin resistant Staphylococcus aureus infection, unspecified site (principal); M46.40 Discitis, unspecified, site unspecified

== ENCOUNTER → 2019-05-09 | Outpatient (REF) | payer OTHER ==
[~2019-05-09] MED LIST changes: -CEFA2INJ4 IV; -D3 H10002 PO; +DIGO0.12 PO; -DIGO0.123 PO; +DIGO0.25 PO; -DIGO0.253 PO; -MORP15TA2 PO; -MORP15TASA PO; -MSIR30TA PO; -PATIENT COMMENT; -POTA1TAB23 PO; -SENN-52 PO; +SIMV20TA2 OR; -SIMV20TA22 OR; -TRIA1CR80 TOP; -VITA100066 PO; -VITACHTA PO; -[UNRECOGNIZED DRUG - CODE] PO
[2019-05-09 14:53] LABS: BASO % 0.3 % (0.0-1.0); EOS # 0.2 10^3/uL (0.0-0.5); EOS % 1.6 % (0.0-3.0); HEMATOCRIT 33.8 % (36.0-47.0); HEMOGLOBIN 10.3 g/dl (12.0-15.5); LYMPH # 1.5 10^3/uL (1.5-5.0); LYMPH % 12.2 % (24.0-44.0); MEAN CORPUSCULAR HEMOGLOBIN 30.4 pg (27.0-33.0); MEAN CORPUSCULAR HGB CONC 30.5 g/dl (32.0-36.5); MEAN CORPUSCULAR VOLUME 99.7 fl (80.0-96.0); MONO # 0.8 10^3/uL (0.0-0.8); MONO % 6.1 % (0.0-5.0); NEUTROPHILS # 9.7 10^3/uL (1.5-8.5); PLATELET COUNT, AUTOMATED 234 10^3/uL (150-450); RED BLOOD COUNT 3.39 10^6/uL (4.00-5.40); WHITE BLOOD COUNT 12.3 10^3/uL (4.0-10.0)
[2019-05-09 15:25] LABS: ERYTHROCYTE SEDIMENTATION RATE 90 mm/hr (0-30)
[2019-05-09 15:26] LABS: ALBUMIN 3.1 GM/DL (3.2-5.2); ALT/SGPT 17 U/L (12-78); BILIRUBIN,TOTAL 0.3 MG/DL (0.2-1.0); BLOOD UREA NITROGEN 9 MG/DL (7-18); C REACTIVE PROTEIN QUANTITATIV 3.83 MG/DL (0.00-0.30); CALCIUM LEVEL 9.2 MG/DL (8.8-10.2); CARBON DIOXIDE LEVEL 27 MEQ/L (21-32); CHLORIDE LEVEL 102 MEQ/L (98-107); CPK CREATINE PHOSPHOKINASE 89 U/L (26-192); CREATININE FOR GFR 0.95 MG/DL (0.55-1.30); GLOMERULAR FILTRATION RATE > 60.0 (>39); GLUCOSE, FASTING 73 MG/DL (70-100); POTASSIUM SERUM 3.8 MEQ/L (3.5-5.1); SODIUM LEVEL 137 MEQ/L (136-145); TOTAL PROTEIN 6.8 GM/DL (6.4-8.2)
== END ==
LOC: M SHH 13:51
PROVIDERS: ATTEND Internal Medicine Infectious Disease
DX: M46.44 Discitis, unspecified, thoracic region (principal); B95.61 Methicillin susceptible Staphylococcus aureus infection as the cause of diseases classified elsewhere

== ENCOUNTER → 2019-05-12 | Outpatient (REF) | payer OTHER | LOC: M LAB REF 16:42 | PROVIDERS: ATTEND Internal Medicine | DX: R79.82 Elevated C-reactive protein (CRP) (principal) ==

== ENCOUNTER → 2019-05-16 | Outpatient (REF) | payer OTHER ==
[2019-05-16 18:01] LABS: BASO % 0.4 % (0.0-1.0); EOS # 0.2 10^3/uL (0.0-0.5); EOS % 1.5 % (0.0-3.0); HEMATOCRIT 36.7 % (36.0-47.0); LYMPH # 1.5 10^3/uL (1.5-5.0); LYMPH % 14.4 % (24.0-44.0); MEAN CORPUSCULAR VOLUME 103.4 fl (80.0-96.0); MONO # 0.7 10^3/uL (0.0-0.8); MONO % 6.5 % (0.0-5.0); NEUTROPHILS # 8.1 10^3/uL (1.5-8.5); NEUTROPHILS % 76.1 % (36.0-66.0); PLATELET COUNT, AUTOMATED 258 10^3/uL (150-450); RED BLOOD COUNT 3.55 10^6/uL (4.00-5.40); WHITE BLOOD COUNT 10.6 10^3/uL (4.0-10.0)
[2019-05-16 18:24] LABS: ALBUMIN 3.1 GM/DL (3.2-5.2); BILIRUBIN,TOTAL 0.3 MG/DL (0.2-1.0); C REACTIVE PROTEIN QUANTITATIV 7.11 MG/DL (0.00-0.30); CALCIUM LEVEL 8.9 MG/DL (8.8-10.2); CREATININE FOR GFR 1.07 MG/DL (0.55-1.30); GLOMERULAR FILTRATION RATE 53.7 (>39); POTASSIUM SERUM 3.6 MEQ/L (3.5-5.1); TOTAL PROTEIN 6.5 GM/DL (6.4-8.2)
[2019-05-16 18:56] LABS: ERYTHROCYTE SEDIMENTATION RATE 79 mm/hr (0-30)
== END ==
LOC: M LAB REF 17:12
PROVIDERS: ATTEND Internal Medicine Infectious Disease
DX: M46.44 Discitis, unspecified, thoracic region (principal); B95.61 Methicillin susceptible Staphylococcus aureus infection as the cause of diseases classified elsewhere; T82.7XXA Infection and inflammatory reaction due to other cardiac and vascular devices, implants and grafts, initial encounter; R78.81 Bacteremia; Y83.8 Other surgical procedures as the cause of abnormal reaction of the patient, or of later complication, without mention of misadventure at the time of the procedure

== ENCOUNTER → 2019-05-23 | Outpatient (CLI) | payer OTHER ==
[~2019-05-23] MED LIST changes: +CEFA2INJ4 IV; +LIDOCAINE 1% MDV 20ML VIAL As Ordered ONE; +MORP15TA2 PO; +MORP15TASA PO; +MSIR30TA PO; +PATIENT COMMENT; +POTA1TAB23 PO; +SENN-52 PO; +TRIA1CR80 TOP; +VITACHTA PO
[2019-05-23 15:15] VITALS: BP 137/61
--- NOTE | 2019-05-23 16:53 | REP ---
CT-GUIDED T-8/9 ABSCESS DRAIN The procedure was performed under the personal supervision of Dr. Lemos. The benefits and risks including but not limited to pain infection bleeding and anaphylaxis were explained to the patient and informed consent was obtained. The T-8/9 abscess was localized using CT guidance. The skin was prepped and draped in a sterile fashion. 1% lidocaine was used as a local anesthetic. Using ultrasound guidance a 18-gauge needle was inserted and advanced into the abscess. Approximately 5 ml of reddish colored fluid was withdrawn and sent to lab for analysis. The patient tolerated the procedure well and there were no immediate complications. After the appropriate amount of monitored convalescence the patient was discharged from the department. Electronically Signed by REID Sanford 05/23/2019 04:39 P Electronically Signed by Tom Lemos MD 05/23/2019 04:45 P
== END ==
LOC: M IRPRO 13:14
PROVIDERS: ATTEND Internal Medicine Infectious Disease
DX: M46.44 Discitis, unspecified, thoracic region (principal); A49.01 Methicillin susceptible Staphylococcus aureus infection, unspecified site

== ENCOUNTER → 2019-05-25 | Outpatient (REF) | payer OTHER ==
[~2019-05-25] MED LIST changes: -CEFA2INJ4 IV; -LIDOCAINE 1% MDV 20ML VIAL As Ordered ONE; -MORP15TA2 PO; -MORP15TASA PO; -MSIR30TA PO; -SENN-52 PO
[2019-05-25 14:24] LABS: BASO % 0.3 % (0.0-1.0); EOS # 0.2 10^3/uL (0.0-0.5); EOS % 1.7 % (0.0-3.0); HEMATOCRIT 37.6 % (36.0-47.0); HEMOGLOBIN 11.3 g/dl (12.0-15.5); LYMPH # 1.3 10^3/uL (1.5-5.0); LYMPH % 11.4 % (24.0-44.0); MEAN CORPUSCULAR HEMOGLOBIN 30.3 pg (27.0-33.0); MEAN CORPUSCULAR HGB CONC 30.1 g/dl (32.0-36.5); MEAN CORPUSCULAR VOLUME 100.8 fl (80.0-96.0); MONO # 0.7 10^3/uL (0.0-0.8); MONO % 5.8 % (0.0-5.0); NEUTROPHILS # 9.4 10^3/uL (1.5-8.5); NEUTROPHILS % 80.3 % (36.0-66.0); PLATELET COUNT, AUTOMATED 222 10^3/uL (150-450); RED BLOOD COUNT 3.73 10^6/uL (4.00-5.40); WHITE BLOOD COUNT 11.7 10^3/uL (4.0-10.0)
[2019-05-25 14:52] LABS: ALBUMIN 2.9 GM/DL (3.2-5.2); ALT/SGPT < 6 U/L (12-78); BILIRUBIN,TOTAL 0.2 MG/DL (0.2-1.0); BLOOD UREA NITROGEN 11 MG/DL (7-18); C REACTIVE PROTEIN QUANTITATIV 2.06 MG/DL (0.00-0.30); CALCIUM LEVEL 8.8 MG/DL (8.8-10.2); CARBON DIOXIDE LEVEL 27 MEQ/L (21-32); CHLORIDE LEVEL 102 MEQ/L (98-107); GLOMERULAR FILTRATION RATE > 60.0 (>39); GLUCOSE, FASTING 97 MG/DL (70-100); SODIUM LEVEL 137 MEQ/L (136-145); TOTAL PROTEIN 6.3 GM/DL (6.4-8.2)
[2019-05-25 14:59] LABS: ERYTHROCYTE SEDIMENTATION RATE 63 mm/hr (0-30)
== END ==
LOC: M SHH 13:48
PROVIDERS: ATTEND Internal Medicine Infectious Disease
DX: M46.44 Discitis, unspecified, thoracic region (principal); B95.61 Methicillin susceptible Staphylococcus aureus infection as the cause of diseases classified elsewhere; R78.81 Bacteremia; T82.7XXA Infection and inflammatory reaction due to other cardiac and vascular devices, implants and grafts, initial encounter

== ENCOUNTER 2019-05-26 03:40 | Inpatient (IN) | payer OTHER, MEDICARE ==
[~2019-05-26] VITALS: Ht 152.4 cm; Wt 71.0 kg
[~2019-05-26 03:40] MED LIST changes: -PATIENT COMMENT; -POTA1TAB23 PO; -TRIA1CR80 TOP; -VITACHTA PO
[2019-05-26] MEDS ORDERED: MORPHINE 4 MG/ML 1ML VIAL/SYRINGE (J2270) IV ONE (04:15)
[2019-05-26] MEDS ORDERED: POTA1TAB23 PO (04:28)
[2019-05-26 04:38] LABS: BASO % 0.3 % (0.0-1.0); EOS # 0.2 10^3/uL (0.0-0.5); EOS % 1.9 % (0.0-3.0); HEMATOCRIT 37.4 % (36.0-47.0); HEMOGLOBIN 11.2 g/dl (12.0-15.5); LYMPH % 10.2 % (24.0-44.0); MEAN CORPUSCULAR HEMOGLOBIN 30.7 pg (27.0-33.0); MEAN CORPUSCULAR HGB CONC 29.9 g/dl (32.0-36.5); MEAN CORPUSCULAR VOLUME 102.5 fl (80.0-96.0); MONO # 0.7 10^3/uL (0.0-0.8); MONO % 6.9 % (0.0-5.0); NEUTROPHILS # 7.5 10^3/uL (1.5-8.5); NEUTROPHILS % 79.8 % (36.0-66.0); PLATELET COUNT, AUTOMATED 198 10^3/uL (150-450); RED BLOOD COUNT 3.65 10^6/uL (4.00-5.40); WHITE BLOOD COUNT 9.4 10^3/uL (4.0-10.0)
[2019-05-26] MEDS ORDERED: VITACHTA PO (04:54)
[2019-05-26] MEDS ORDERED: PATIENT COMMENT (04:57)
[2019-05-26] MEDS ORDERED: TRIA1CR80 TOP (04:57)
[2019-05-26] MEDS ORDERED: MORPHINE 2 MG/ML 1ML VIAL (J2270) IV ONE ×2 (05:00→18:00)
[2019-05-26 05:22] LABS: CALCIUM LEVEL 9.6 MG/DL (8.8-10.2); CREATININE FOR GFR 0.98 MG/DL (0.55-1.30); GLOMERULAR FILTRATION RATE 59.4 (>39); POTASSIUM SERUM 4.1 MEQ/L (3.5-5.1)
[2019-05-26 06:11] LABS: ERYTHROCYTE SEDIMENTATION RATE 55 mm/hr (0-30)
[2019-05-26] MEDS ORDERED: TRIAMCINOLONE ACET 0.1% CREAM 80 GM TOP PRN (06:30)
[2019-05-26 06:35] VITALS: BP 141/65
[2019-05-26 06:41] LABS: C REACTIVE PROTEIN QUANTITATIV 1.23 MG/DL (0.00-0.30)
[2019-05-26] MEDS ORDERED: GLUCOSE 4 GM CHEW TABLET PO PRN (06:45)
[2019-05-26] MEDS ORDERED: DEXTROSE 50% 50 ML SYRINGE IV PRN (06:45)
[2019-05-26] MEDS ORDERED: GLUCAGON FOR INJ 1 MG VIAL (J1610) SC PRN (06:45)
[2019-05-26] MEDS: LEVOTHYROXINE 75MCG TABLET (0.075MG) PO SCH (06:57)
[2019-05-26] MEDS: MORPHINE 2 MG/ML 1ML VIAL (J2270) IV PRN ×3 (07:13→13:46)
--- NOTE | 2019-05-26 08:51 | HPE ---
DATE OF ADMISSION: 05/26/2019 CHIEF COMPLAINT: Back pain. HISTORY OF PRESENT ILLNESS: 73-year-old female with a history of discitis due to Staphylococcus aureus line sepsis from Infusaport in December 2018, found to have biopsy proven methicillin sensitive Staphylococcus aureus (MSSA) on 03/31/2019 and was given IV cefazolin as an inpatient and discharged on intravenous daptomycin, which she completed on 05/11/2019 with no endocarditis on transesophageal echocardiogram. The patient was doing well with oxycodone 10 mg three times a day and occasional Tylenol until Thursday when she had a CT guided abscess drainage on 05/23/2019 showing no organisms on microbiology. The patient complained of severe nerve pain that radiates along the spine from the neck all the way down to the sacrum without fever, chills at home, worse with movement and it is better when she is in position lying on her right side. The patient has had decrease in appetite due to severe pain, otherwise denied any urinary or bowel incontinence. She has had some chronic diarrhea and denied any chills, headaches or photophobia. She presented to the emergency room this morning due to difficulty ambulating and requiring a walker to walk secondary to severe pain. She denies any tingling or numbing sensation when she ambulates. In the emergency room, she was afebrile with normal white count, sed rate and C- reactive protein are pending. The hospitalist was called to admit for intractable back pain status post CT guided drainage abscess of a known MSSA discitis with completed treatment for 6 weeks. PAST MEDICAL HISTORY: 1. 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 2. Multiple myeloma, in remission. 3. Stage I lung cancer, moderately differentiated adenocarcinoma. 4. Paroxysmal atrial fibrillation. 5. Chronic diastolic heart failure. 6. Ablation, cardioversion for atrial fibrillation, on chronic Xarelto. 7. Pulmonary hypertension with right sided heart failure, ejection fraction of 60%. 8. Chronic kidney disease stage III. 9. Hypothyroidism. 10. Type 2 diabetes, [id number]. 11. Osteoporosis. 12. 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 PAST SURGICAL HISTORY: 1. Parathyroidectomy. 2. Tonsillectomy with adenoidectomy. 3. Right lobectomy. 4. Left knee surgery. 5. Surgical biopsy of the T8 spine, 03/31/2019. 6. CT guided drainage of the T8 spine on 05/23/2019. 7. Pacemaker placement. ALLERGIES: PENICILLIN, CODEINE, DABIGATRAN, LATEX, SHELLFISH. HOME MEDICATIONS: The patient completed 6 weeks of intravenous antibiotics on 05/11/2019 with daptomycin. 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 Former smoker. Denies drug use. FAMILY HISTORY: Atrial fibrillation, heart disease, and hypertension. REVIEW OF SYSTEMS: As per history of present illness. 12-point system otherwise negative. PHYSICAL EXAMINATION: Temperature 97.7, pulse 70, respiratory rate 16, blood pressure 125/58, 94% on room air. GENERAL: The patient is awake, alert, oriented to person, place and time. Answering questions appropriately. Anicteric sclerae. No jaundice. Pupils are round and reactive. Extraocular muscles are intact. No jugular venous distention (JVD) or thyromegaly. Face is symmetric. Tongue is midline. No cervical lymphadenopathy or thyromegaly. Moist mucous membranes. No jugular venous distention (JVD). LUNGS: Clear to auscultation. No wheezing, rales or rhonchi. HEART: S1, S2. Regular rate and rhythm. No murmurs, rubs or gallops. ABDOMEN: Soft, nontender, nondistended. Positive bowel sounds. No rebound or guarding. No hepatosplenomegaly. EXTREMITIES: No cyanosis, clubbing or pitting edema. MUSCULOSKELETAL: The patient has point tenderness at T8-T9 area with no costovertebral angle tenderness. No Kernig's and Brudzinski's sign. Motor function is 5/5 times four extremities. No sensory disturbance bilaterally. Deep tendon reflexes are intact bilateral upper and lower extremities. Negative Babinski, downgoing toes. LABORATORY DATA: White count 9.4, hemoglobin 11, hematocrit 37, platelet count 198. Sodium 137, potassium 4.1, chloride 103, bicarbonate 28, BUN 11, creatinine 0.98, glucose of 105, lactic acid of 1.8. 05/23/2019 CT guided abscess drainage showed no organism, no growth aerobically. ASSESSMENT AND PLAN: This is a 74-year-old female with: Multiple myeloma in remission, stage I adenocarcinoma of the lung, methicillin sensitive Staphylococcus aureus (MSSA) line infection with discitis diagnosed in January 2019, completed 6 weeks of intravenous antibiotics with repeat CT guided drainage abscess showing no organisms and no growth aerobically, presents with intractable back pain, CT guided biopsy was performed on 05/23/2019, admitted for pain control and ruling out persistent discitis. The patient will be admitted as an inpatient for two midnights for the following issues, intractable back pain, status post CT guided abscess drainage on 05/23/2019 with prior history of discitis at T8 area, completed antibiotics initially with IV cefazolin as an inpatient and then intravenous daptomycin until 05/11/2019 by tunneled right internal jugular vein central venous catheter and port placement. The patient denies any fever, chills at home. White count is normal. C-reactive protein and sed rate are still pending. At this time, the patient will be given intravenous morphine as her oxycodone has not helped. She is on MS-IR 15 mg every 4 hours, titrate as needed for better control. Obtain repeat imaging with CT of the thoracic spine, as MRI cannot be performed due to history of pacemaker placement. Infectious disease consultation if sed rate and C-reactive protein are elevated or the patient becomes febrile. Blood culture has been obtained. 05/23/2019 T8 abscess culture has no growth aerobically and no organisms seen. Pain management consultation by morning team. Multiple myeloma, in remission, follows with Dr. Ольга Rogers. Stage I moderately differentiated adenocarcinoma. Follows with Dr. Ольга Rogers. Status post right lobectomy. 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 Currently not oxygen dependent. No complaints of shortness of breath. Paroxysmal atrial fibrillation. Currently sinus rhythm. Continue on home dose of flecainide and Xarelto. Continue home dose of Xarelto, Zebeta, digoxin for rate control and flecainide for rhythm. Type 2 diabetes. On Levemir insulin, sliding scale and consistent carbohydrate diet. History of right sided heart failure, diastolic dysfunction. On Lasix 40 mg twice a day. Strict input and output. Monitor for fluid overload and serial creatinine checks. Vitamin D deficiency. On supplement 1000 units daily of vitamin D. Hypothyroidism. On chronic Synthroid. Deep vein thrombosis (DVT) prophylaxis. On chronic Xarelto. DISPOSITION: Await results of repeat CT of the thoracic spine, sed rate and C-reactive protein. If elevated or the patient becomes febrile, will need infectious disease specialist, pain control by pain management to be called in by primary team and physical therapy to assess mobility when pain is controlled. MTDD
[2019-05-26] MEDS: MORPHINE 30 MG TAB **MSIR PO PRN ×3 (08:54→22:46)
[2019-05-26] MEDS: MULTIVITAMINS CHILDREN'S CHEWABLE TABLET PO SCH (09:00)
[2019-05-26] MEDS: BISOPROLOL FUMARATE 10 MG TAB PO SCH ×2 (09:29→21:18)
[2019-05-26] MEDS: HumaLOG INSULIN (NovoLOG) PER UNIT SC SCH ×4 (09:29→20:52)
[2019-05-26] MEDS: VITAMIN D 1,000 INTERNATIONAL UNITS TABLET PO SCH (09:30)
[2019-05-26] MEDS: FLECAINIDE 50MG TABLET PO SCH ×2 (09:30→21:06)
[2019-05-26] MEDS: FUROSEMIDE 40 MG TAB PO SCH ×2 (09:30→16:20)
[2019-05-26] MEDS: POTASSIUM CHLORIDE 10 MEQ SR TABLET PO SCH ×2 (09:30→21:06)
[2019-05-26] MEDS: DIGOXIN 0.125 MG TAB PO SCH (09:31)
[2019-05-26] MEDS: LORazepam 1 MG TAB PO PRN ×2 (11:32→17:54)
--- NOTE | 2019-05-26 11:42 | CR ---
DATE OF CONSULTATION: 05/26/2019 REFERRING PROVIDER: Lien Lovelace MD. CHIEF COMPLAINT: Thoracic back pain. HISTORY OF PRESENT ILLNESS: Javier Caba is a 74-year-old female admitted early this morning for intractable back pain. History of discitis and multiple myeloma in remission. Also stage I lung cancer is noted in past medical history. The patient has been using oxycodone 10 mg four times a day for persistent back pain since diagnosis of discitis in January of 2019. This was working fairly well up until this past Thursday when she had a CT-guided abscess drainage on 05/23/2019 of the thoracic disc area. Denies headache or postural change with her pain. Describes a nerve-like pain up and down her thoracic spine. is at bedside. Discussed medication options. Offered a trial of gabapentin and the patient states that they tried that with her several months ago and it did not help. States that Dr. Dotson, her primary care provider is in charge of her medications for pain and they had discussed trying a long-acting pain medication, i.e. fentanyl. Unfortunately, was not able to begin that here without switching for monitoring. Currently receiving morphine 15 mg by mouth and 2 mg by IV as needed for pain. Prior to my visit, she had both a dose of short-acting morphine and then half hour later 2 mg of IV morphine and she says it is somewhat helpful and definitely better than oxycodone she was having at home. She is very tired due to lack of sleep due to pain. She is able to ambulate with assistance of a walker to the bathroom and back with her physical therapy. PAST MEDICAL HISTORY: 1. Methicillin sensitive Staphylococcus aureus (MSSA) discitis secondary to Dyeuzu-I-Kbpa infection diagnosed March 31, 2019. 2. Multiple myeloma in remission. 3. Stage I lung cancer, moderately differentiated adenocarcinoma. 4. Paroxysmal atrial fibrillation. 5. Chronic diastolic heart failure. 6. Ablation cardioversion for atrial fibrillation on chronic Xarelto. 7. Pulmonary hypertension with right-sided heart failure, ejection fraction of 60%. 8. Chronic kidney disease stage III. 9. Hypothyroidism. 10. Type 2 diabetes. 11. Osteoporosis. 12. Amiodarone-induced pulmonary toxicity with pulmonary hypertension. PAST SURGICAL HISTORY: Parathyroidectomy. Tonsillectomy with adenoidectomy. Right lobectomy. Left knee surgery. Surgical biopsy of the T8-spine 03/31/2019. CT-guided drainage of the T-spine on 05/23/2019. Pacemaker placement. ALLERGIES: PENICILLIN, CODEINE, DABIGATRAN, LATEX, shell fish. PHYSICAL EXAMINATION: Alert. Affect is flat. Lying in bed on her right side. VITAL SIGNS: Temperature 97.9, pulse 70, respirations 18, blood pressure 141/65, pulse ox of 95% on room air. CARDIAC: S1, S2 normal rate and rhythm. RESPIRATORY: Lung sounds nonlabored. Respirations are lung sounds clear bilaterally. MUSCULOSKELETAL: Inspection of spine with tenderness noted over the thoracic spine. No redness or swelling. ASSESSMENT: 1. Thoracic back pain. 2. Discitis, T8 PLAN: I would recommend using long-acting morphine 15 mg to 30 mg twice a day. Continue with use of short-acting morphine 15 mg by mouth for breakthrough pain as needed every 4 hours. She is not interested in a trial of gabapentin. She does not feel a muscle relaxant would be helpful. She would like to be on a fentanyl patch and she will discuss that upon discharge with Dr. Dotson, her primary care provider. Thank you for allowing us to participate in the care of your patient. If you have any questions or concerns please do not hesitate to contact us.
[2019-05-26 14:00] VITALS: BP 111/59
[2019-05-26] MEDS: ONDANSETRON 4 MG TAB (S0181) PO PRN (14:25)
[2019-05-26] MEDS ORDERED: ceFAZolin SOD 2 GM in IV 1 EA IV SCH (17:00)
[2019-05-26] MEDS: RIVAROXABAN 20 MG TAB (XARELTO) PO SCH (17:05)
--- NOTE | 2019-05-26 17:42 | REP ---
Clinical: Evaluate for compression fracture. Technique: AP, lateral, swimmers views of the thoracic spine. Findings: There is loss of the disc space at the T8-9 level with associated destructive changes along the inferior endplate of T8 and the superior endplate of T9 causing collapse and acute angulation. These findings are consistent with a prior history of primary diskitis presumed underlying osteomyelitis causing loss of normal vertebral body heights. Remainder of the visualized thoracic spine appears relatively normal. Impression: Changes involving the T8 and T9 vertebral bodies and disc space compatible with diskitis/osteomyelitis. Electronically Signed by Bert Watts MD 05/26/2019 05:34 P
[2019-05-26] MEDS: SITagliptin 50 MG TAB (JANUVIA) PO SCH (21:05)
[2019-05-26] MEDS: MORPHINE 15 MG SA TAB PO SCH (21:06)
[2019-05-26] MEDS: LEVEMIR (INSULIN DETEMIR) 1 UNITS/0.01ML SC SCH (21:10)
[2019-05-26 22:00] VITALS: BP 128/71
[2019-05-27] MEDS ORDERED: MORPHINE 2 MG/ML 1ML VIAL (J2270) IV ONE (01:00)
[2019-05-27] MEDS: SODIUM CHLORIDE 0.9% INJ 10 ML SYR IV PRN ×2 (01:30→23:41)
[2019-05-27] MEDS: LORazepam 1 MG TAB PO PRN ×2 (02:57→19:46)
[2019-05-27] MEDS: MORPHINE 30 MG TAB **MSIR PO PRN ×2 (04:25→15:27)
[2019-05-27] MEDS: ONDANSETRON 4 MG TAB (S0181) PO PRN ×2 (05:58→19:46)
[2019-05-27] MEDS: LEVOTHYROXINE 75MCG TABLET (0.075MG) PO SCH (05:59)
[2019-05-27 06:00] VITALS: BP 131/55
[2019-05-27 08:25] LABS: HEMATOCRIT 41.7 % (36.0-47.0); HEMOGLOBIN 12.2 g/dl (12.0-15.5); MEAN CORPUSCULAR HEMOGLOBIN 30.1 pg (27.0-33.0); MEAN CORPUSCULAR HGB CONC 29.3 g/dl (32.0-36.5); PLATELET COUNT, AUTOMATED 225 10^3/uL (150-450); RED BLOOD COUNT 4.05 10^6/uL (4.00-5.40); WHITE BLOOD COUNT 10.5 10^3/uL (4.0-10.0)
[2019-05-27 08:52] LABS: BLOOD UREA NITROGEN 12 MG/DL (7-18); CALCIUM LEVEL 10.1 MG/DL (8.8-10.2); CARBON DIOXIDE LEVEL 31 MEQ/L (21-32); CHLORIDE LEVEL 100 MEQ/L (98-107); CREATININE FOR GFR 0.95 MG/DL (0.55-1.30); GLOMERULAR FILTRATION RATE > 60.0 (>39); GLUCOSE, FASTING 85 MG/DL (70-100); SODIUM LEVEL 136 MEQ/L (136-145)
[2019-05-27] MEDS: MULTIVITAMINS CHILDREN'S CHEWABLE TABLET PO SCH (10:07)
[2019-05-27] MEDS: VITAMIN D 1,000 INTERNATIONAL UNITS TABLET PO SCH (10:08)
[2019-05-27] MEDS: FLECAINIDE 50MG TABLET PO SCH ×2 (10:13→22:12)
[2019-05-27] MEDS: SENOKOT S TAB PO SCH (10:15)
[2019-05-27] MEDS: POTASSIUM CHLORIDE 10 MEQ SR TABLET PO SCH ×2 (10:15→22:14)
[2019-05-27] MEDS: DIGOXIN 0.125 MG TAB PO SCH (10:15)
[2019-05-27] MEDS: FUROSEMIDE 40 MG TAB PO SCH ×2 (10:15→17:15)
[2019-05-27] MEDS: MORPHINE 15 MG SA TAB PO SCH ×2 (10:16→22:13)
[2019-05-27] MEDS: SODIUM CHLORIDE 0.9% INJ 10 ML SYR IV SCH (10:17)
[2019-05-27] MEDS: HumaLOG INSULIN (NovoLOG) PER UNIT SC SCH ×4 (10:17→21:00)
--- NOTE | 2019-05-27 10:57 | CR ---
DATE OF CONSULTATION: 05/27/2019 CHIEF COMPLAINT: Back pain. This is a 73-year-old female with a history of discitis that has biopsy proven MSSA infection since 03/31/2019. She has been on the IV cefazolin. She states that she has had skilled nursing back pain. It has made it worse and alleviated with rest. She denies any neurologic symptoms. No bowel or bladder incontinence, saddle anesthesia or weakness, numbness or tingling. She states that her main complaint is back pain. She previously underwent a CT guided drainage and they approximately about 5 mL. She is currently afebrile and she has been on IV treatment for approximately 6 weeks. PAST MEDICAL HISTORY: She has a past medical history of MSSA discitis, multiple myeloma in remission, stage 1 lung cancer, proximal a-fib, chronic diastolic heart failure, ablation for cardioversion for a-fib on Xarelto, pulmonary hypertension, chronic kidney disease stage 3, hypothyroidism, type 2 diabetes, insulin dependant osteoporosis, amiodarone induced pulmonary toxicity as well as hypertension. PAST SURGICAL HISTORY: Parathyroidectomy, tonsillectomy, right lobectomy, left knee surgery, surgical biopsy and PT drainage of T8, pacemaker placement. ALLERGIES: Penicillin, codeine, latex and shell fish. HOME MEDICATIONS: IV antibiotics, azotomycin, bisoprolol, digoxin, Lasix, Levemir insulin, Synthroid, Ativan, oxycodone, potassium, Xarelto, Januvia, triamcinolone and Farxiga. 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 Complete 10 system review with pertinent, positive and negatives in HPI. Other systems negative. PHYSICAL EXAMINATION: The patient is awake, alert and oriented. Bilateral upper extremities intact sensation C5 to T1 negative Ogncalves bilaterally. Radial pulse 2+ regular rate and sensation intact to light touch and C5- T1 motor strength was intact 5/5 C5-T1. Bilateral lower extremities motor strength 5/5 in L2-S1. Sensation intact to L2 to S1. Negative clonus bilaterally. Posterior tibial pulses are 2+ regular rate. Patient deferred on rectal exam and denies any saddle anesthesia. LABS: Her most recent white blood cell count is 10.5 this morning 9.4 yesterday, erythrocyte sedimentation rate 55. Most recent CT aspiration has no growth after 24 hours. History of MSSA at T8. Thoracic x-ray reviewed demonstrating no acute collapse or acute kyphosis. There is some loss of anterior disc height suggestive of chronic infection. However it appears stable at this time. ASSESSMENT AND PLAN: T8 discitis with chronic T8-T9 changes. There is some kyphosis at T8-T9. Patient does not have any neurologic compromise. 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 Street for a discussion on potential interventions however there is no acute orthopedic surgical indication at this time. The patient expressed understanding and agreed with that plan. She may be weightbearing as tolerated and use the TLSO for comfort.
[2019-05-27] MEDS: FARXIGA 5 MG PO SCH (12:29)
[2019-05-27] MEDS: ceFAZolin SOD 2 GM in IV 1 EA IV SCH ×2 (12:29→21:00)
[2019-05-27] MEDS: BISOPROLOL FUMARATE 10 MG TAB PO SCH ×2 (12:49→21:00)
[2019-05-27 14:00] VITALS: BP 120/75
[2019-05-27] MEDS: RIVAROXABAN 20 MG TAB (XARELTO) PO SCH (17:14)
--- NOTE | 2019-05-27 18:03 | IPNPDOC ---
Date Seen The patient was seen on 05/27/19. Progress Note SUBJECTIVE: Patient complained of back pain 8 out of 10 last night. Continues to have difficulty with back pain today. She worked with PT and was able to ambulate a safe distance and ascend and descend 2 steps. She was deemed safe to DC home with her family. She is still very apprehensive about walking due to her fear of falling and from her back pain. Otherwise, she has no other complaints. OBJECTIVE PHYSICAL EXAMINATION: VITAL SIGNS: Please see below. GENERAL APPEARANCE: Laying in bed, appears stated age, no acute distress, calm, cooperative HEENT: EOMI, PERRLA, neck is supple with no thyromegaly or lymphadenopathy RESPIRATORY: Lungs are clear to auscultation bilaterally with no adventitious breath sounds appreciated CARDIOVASCULAR: no JVD, RRR,no murmurs/rubs/gallops ABDOMEN: Soft, nontender to palpation in all four quadrants, no masses/organomegaly EXTREMITIES: no clubbing, cyanosis or edema noted MUSCULOSKELETAL: Point tenderness at T8-T9. Motor function is normal in all ex tremities as well as sensation. DTRs are normal NEUROLOGICAL: No obvious focal deficits PSYCHIATRIC: normal mood/affect Skin: No rashes or ulcers. LN: No significant cervical or inguinal lymphadenopathy LABORATORY DATA, IMAGING STUDIES, MICROBIOLOGY: Please see below. Echocardiogram: None DVT prophylaxis ordered?: Patient is on Xarelto ASSESSMENT AND PLAN: This is a 74-year-old female with recent history of abscess drainage and discitis at T8-T9 who presents with postprocedural pain. PROBLEMS: 1. Recent history of discitis: -The patient is on cefazolin per Dr. Zapien's recommendation. ID consult in place. Appreciate further recommendations. -Pain management consult for better pain control: Recommended MS Contin 15 mg twice a day and 30 mg morphine ER every 4 hours as needed for breakthrough pain -Orthopedic surgery consultation: Recommend TLSO bracing for pain control and outpatient follow-up with Dr. Street 2. Paroxysmal atrial fibrillation: Patient is currently normal sinus rhythm -Continue home flecainide, bisoprolol, digoxin and Xarelto 3. Pulmonary hypertension secondary to amiodarone: -Patient does not have any complaints of shortness of breath 4. DM 2: -Continue Levemir 40 units daily at bedtime and SSI -Continue Januvia 5. Congestive heart failure: -Continue Lasix 40 mg twice a day. Patient does not appear to be fluid overloaded at this time -Continue potassium replacement 6. History of hypothyroidism -Continue home dose of levothyroxine 75 g DISPOSITION: Pending improvement of pain and stability VS, I&O, 24H, Fishbone Vital Signs/I&O Vital Signs Date Time Temp Pulse Resp B/P (MAP) Pulse Ox O2 Delivery O2 Flow Rate FiO2 05/27/19 15:57 18 05/27/19 14:00 97.5 74 120/75 (90) 99 Room Air I&O- Last 24 Hours up to 6 AM 05/27/19 06:00 Intake Total 1490 ml Output Total 3000 ml Balance -1510 ml Laboratory Data 24H LABS Laboratory Tests 2 05/26/19 20:31: Bedside Glucose (Misc Panel) 121H 05/27/19 07:26: Bedside Glucose (Misc Panel) 99 05/27/19 07:46: Nucleated Red Blood Cells % (auto) 0.0, Anion Gap 5L, Glomerular Filtration Rate > 60.0, Calcium Level 10.1 05/27/19 11:32: Bedside Glucose (Misc Panel) 87 05/27/19 16:22: Bedside Glucose (Misc Panel) 101 CBC/BMP Laboratory Tests 05/27/19 07:46 Microbiology Microbiology 05/26/19 Blood Culture - Preliminary, Resulted No growth after 24 hours . All specim... GME ATTESTATION GME ATTESTATION I saw and evaluated the patient. I agree with the findings and plan of care as documented in the above note GERMAN ARAGON MD May 27, 2019 18:03 COLBY PATHAK MD May 28, 2019 10:55
[2019-05-27] MEDS ORDERED: SIMETHICONE 80 MG CHEW TAB PO PRN (19:15)
[2019-05-27 22:00] VITALS: BP 152/67
[2019-05-27] MEDS: LEVEMIR (INSULIN DETEMIR) 1 UNITS/0.01ML SC SCH (22:11)
[2019-05-27] MEDS: SITagliptin 50 MG TAB (JANUVIA) PO SCH (22:11)
[2019-05-27 23:00] VITALS: BP 106/50
[2019-05-28] MEDS: LORazepam 1 MG TAB PO PRN (02:03)
[2019-05-28] MEDS: MORPHINE 30 MG TAB **MSIR PO PRN (02:04)
[2019-05-28] MEDS: LEVOTHYROXINE 75MCG TABLET (0.075MG) PO SCH (05:42)
[2019-05-28] MEDS: ceFAZolin SOD 2 GM in IV 1 EA IV SCH (05:43)
[2019-05-28 06:00] VITALS: BP 102/58
[2019-05-28 06:19] LABS: HEMATOCRIT 38.8 % (36.0-47.0); HEMOGLOBIN 11.5 g/dl (12.0-15.5); MEAN CORPUSCULAR HGB CONC 29.6 g/dl (32.0-36.5); MEAN CORPUSCULAR VOLUME 101.3 fl (80.0-96.0); PLATELET COUNT, AUTOMATED 205 10^3/uL (150-450); RED BLOOD COUNT 3.83 10^6/uL (4.00-5.40); WHITE BLOOD COUNT 10.3 10^3/uL (4.0-10.0)
[2019-05-28 06:47] LABS: CALCIUM LEVEL 9.4 MG/DL (8.8-10.2); CREATININE FOR GFR 1.01 MG/DL (0.55-1.30); GLOMERULAR FILTRATION RATE 57.4 (>39); POTASSIUM SERUM 4.2 MEQ/L (3.5-5.1)
[2019-05-28] MEDS: SODIUM CHLORIDE 0.9% INJ 10 ML SYR IV PRN (06:47)
[2019-05-28] MEDS: HumaLOG INSULIN (NovoLOG) PER UNIT SC SCH ×2 (07:30→12:00)
[2019-05-28] MEDS: FARXIGA 5 MG PO SCH (08:15)
[2019-05-28] MEDS: VITAMIN D 1,000 INTERNATIONAL UNITS TABLET PO SCH (08:16)
[2019-05-28] MEDS: POTASSIUM CHLORIDE 10 MEQ SR TABLET PO SCH (08:16)
[2019-05-28] MEDS: FUROSEMIDE 40 MG TAB PO SCH (08:17)
[2019-05-28] MEDS: SENOKOT S TAB PO SCH (08:17)
[2019-05-28] MEDS: FLECAINIDE 50MG TABLET PO SCH (08:17)
[2019-05-28] MEDS: MULTIVITAMINS CHILDREN'S CHEWABLE TABLET PO SCH (08:17)
[2019-05-28] MEDS: DIGOXIN 0.125 MG TAB PO SCH (08:18)
[2019-05-28] MEDS: MORPHINE 15 MG SA TAB PO SCH (08:18)
[2019-05-28 08:21] VITALS: BP 114/58
[2019-05-28] MEDS: BISOPROLOL FUMARATE 10 MG TAB PO SCH (08:21)
[2019-05-28] MEDS: SODIUM CHLORIDE 0.9% INJ 10 ML SYR IV SCH (09:30)
[2019-05-28] MEDS ORDERED: SENN-52 PO (09:51)
[2019-05-28] MEDS ORDERED: CEFA2INJ4 IV (09:51)
[2019-05-28] MEDS ORDERED: MSIR30TA PO (09:51)
[2019-05-28] MEDS ORDERED: MORP15TASA PO ×2 (09:51→10:29)
--- NOTE | 2019-05-28 10:14 | DS.PDOC ---
Discharge Summary General Date of Admission May 26, 2019 at 05:45 Date of Discharge 05/28/2019 Attending Physician: COLBY PATHAK MD Specialist/Consultants Involve: CHEIKH MENCHACA MD Specialist/Consultants Involve Shira Abad, Pain management Discharge Summary PROCEDURES PERFORMED DURING STAY: None. ADMITTING DIAGNOSES: 1. Discitis at T8 with [id number] infection diagnosed March 2019. 2. Recent abscess drainage and resulting intractable back pain DISCHARGE DIAGNOSES: 1. Post procedural pain from abscess drainage COMPLICATIONS/CHIEF COMPLAINT: Intractable Back Pain. HISTORY OF PRESENT ILLNESS: 73-year-old female with a history of discitis due to Staphylococcus aureus line sepsis from [facility] in December 2018, found to have biopsy proven methicillin sensitive Staphylococcus aureus (MSSA) on 03/31/2019 and was given IV cefazolin as an inpatient and discharged on intravenous daptomycin, which she completed on 05/11/2019 with no endocarditis on transesophageal echocardiogram. The patient was doing well with oxycodone 10 mg three times a day and occasional Tylenol until Thursday when she had a CT guided abscess drainage on 05/23/2019 showing no organisms on microbiology. The patient complained of severe nerve pain that radiates along the spine from the neck all the way down to the sacrum without fever, chills at home, worse with movement and it is better when she is in position lying on her right side. The patient has had decrease in appetite due to severe pain, otherwise denied any urinary or bowel incontinence. She has had some chronic diarrhea and denied any chills, headaches or photophobia. She presented to the emergency room this morning due to difficulty ambulating and requiring a walker to walk secondary to severe pain. She denies any tingling or numbing sensation when she ambulates. In the emergency room, she was afebrile with normal white count, sed rate and C- reactive protein are pending. The hospitalist was called to admit for intractable back pain status post CT guided drainage abscess of a known MSSA discitis with completed treatment for 6 weeks. HOSPITAL COURSE: Patient was admitted [address] guided abscess drainage of a known MSSA discitis at T8. She complained of worsening lower back pain and inability to perform activities of daily living at home due to her pain. She was started on IV morphine for pain management and this regimen was adjusted according to the recommendations of the pain management team. The patient worked with and was cleared by physical therapy as she demonstrated no issues with ambulation and ascending, descending stairs. She was seen by orthopedic surgery who recommended a TLSO brace, but no surgical options necessary. She will be sent home on continued IV antibiotics as prescribed by infectious disease and 7 days' worth of pain medication to be taken as needed. DISCHARGE MEDICATIONS: Please see below. ALLERGIES: Please see below. PHYSICAL EXAMINATION ON DISCHARGE: VITAL SIGNS: Please see below. GENERAL APPEARANCE: Laying in bed, appears stated age, no acute distress, calm, cooperative HEENT: EOMI, PERRLA, neck is supple with no thyromegaly or lymphadenopathy RESPIRATORY: Lungs are clear to auscultation bilaterally with no adventitious breath sounds appreciated CARDIOVASCULAR: no JVD, RRR,no murmurs/rubs/gallops ABDOMEN: Soft, nontender to palpation in all four quadrants, no masses/organomegaly EXTREMITIES: no clubbing, cyanosis or edema noted MUSCULOSKELETAL: Patient is wearing TLSO brace. There is still some point tenderness at T8-T9. Motor function is normal in all extremities as well as sensation. DTRs are normal NEUROLOGICAL: No obvious focal deficits PSYCHIATRIC: normal mood/affect Skin: No rashes or ulcers. LN: No significant cervical or inguinal lymphadenopathy LABORATORY DATA: Please see below. IMAGING: THORACIC SPINE XR: Findings: There is loss of the disc space at the T8-9 level with associated destructive changes along the inferior endplate of T8 and the superior endplate of T9 ca using collapse and acute angulation. These findings are consistent with a prior history of primary diskitis presumed underlying osteomyelitis causing loss of normal vertebral body heights. Remainder of the visualized thoracic spine appears relatively normal. Impression: Changes involving the T8 and T9 vertebral bodies and disc space compatible with diskitis/osteomyelitis PROGNOSIS: Fair ACTIVITY: As tolerated. DIET: Consistent carbohydrate DISCHARGE PLAN: Home DISPOSITION: . DISCHARGE INSTRUCTIONS: 1. Please continue to take cefazolin as prescribed. 2. Please follow-up with Dr. Zapien within 7 days. 3. If her symptoms worsen or do not improve, return to the emergency room. ITEMS TO FOLLOWUP ON ON OUTPATIENT: 1. None DISCHARGE CONDITION: Stable. Vital Signs/I&Os Vital Signs Date Time Temp Pulse Resp B/P (MAP) Pulse Ox O2 Delivery O2 Flow Rate FiO2 05/28/19 08:21 76 114/58 05/28/19 08:18 18 Room Air 05/28/19 06:00 98.1 96 I&O- Last 24 Hours up to 6 AM 05/28/19 06:00 Intake Total 2810 ml Output Total 2550 ml Balance 260 ml Laboratory Data Labs 24H Laboratory Tests 2 05/27/19 11:32: Bedside Glucose (Misc Panel) 87 05/27/19 16:22: Bedside Glucose (Misc Panel) 101 05/27/19 20:19: Bedside Glucose (Misc Panel) 137H 05/28/19 05:58: Nucleated Red Blood Cells % (auto) 0.0, Anion Gap 4L, Glomerular Filtration Rate 57.4, Calcium Level 9.4 CBC/BMP Laboratory Tests 05/28/19 05:58 FSBS Laboratory Tests Test 05/27/19 11:32 05/27/19 16:22 05/27/19 20:19 Range/Units Bedside Glucose (Misc Panel) 87 101 137 83-110 MG/DL Microbiology Microbiology 05/26/19 Blood Culture - Preliminary, Resulted No Growth after 48 hours. All Specime... Discharge Medications Scheduled Bisoprolol Fumarate (Bisoprolol Fumarate) 10 Mg Tab, 10 MG PO BID, (Reported) 0800, 1700 Cefazolin Sodium/Water (Cefazolin 2 G/20 ml-Water Syrg) 2 Gm/20 Ml Syringe, 2 GM IV Q8H Cholecalciferol (Vitamin D3) (Vitamin D3) 1,000 Unit Tab, 1,000 UNIT PO DAILY, (Reported) Dapagliflozin Propanediol (Farxiga) 10 Mg Tab, 5 MG PO DAILY, (Reported) Digoxin (Digoxin) 125 Mcg Tablet, 125 MCG PO DAILY, (Reported) Flecainide Acetate (Flecainide Acetate) 50 Mg Tablet, 100 MG PO BID, (Reported) 0800, 1700 Furosemide (Furosemide) 40 Mg Tablet, 40 MG PO BID, (Reported) 0800, 1700 Insulin Detemir (Levemir) 100 Unit/1 Ml Vial, 40 UNITS SC QHS, (Reported) Levothyroxine Sodium (Synthroid) 75 Mcg Tab, 75 MCG PO DAILY, (Reported) Multivitamins (Child Chew Vitamin) 1 Each Tab.chew, 2 TAB PO DAILY, (Reported) Potassium Chloride (Potassium Chloride) 10 Meq Tablet.er, 20 MEQ PO BID, (Reported) 0800, 1700 Rivaroxaban (Xarelto) 20 Mg Tab, 20 MG PO QPM, (Reported) 1700 Sennosides/Docusate Sodium (Senna Plus Tablet) 1 Each Tablet, 1 TAB PO DAILY Sitagliptin Phosphate (Januvia) 100 Mg Tab, 100 MG PO QPM, (Reported) 1700 Scheduled PRN Lorazepam (Ativan) 1 Mg Tab, 1 MG PO QID PRN for ANXIETY/AGITATION, (Reported) Morphine Sulfate (Morphine Sulfate ER) 15 Mg Tablet.er, 15 MG PO QID PRN for pain Morphine Sulfate (Morphine Sulfate) 15 Mg Tablet, 15 MG PO Q8HP PRN for pain Oxycodone HCl (Oxycodone HCl) 10 Mg Tablet, 10 MG PO QIDP PRN for pain Triamcinolone Acet (Triamcinolone Acetonide 0.1% Crm) 80 Gm Cream..g., 1 DOSE TOP DAILY PRN for RASH, (Reported) USES ON GROIN AFTER SHOWER AND UNDER RIGHT BREAST Allergies Coded Allergies: shellfish derived (Verified Allergy, Severe, swelling, 10/26/18) Penicillins (Verified Allergy, Intermediate, rash, 10/26/18) latex (Verified Allergy, Intermediate, rash, 10/26/18) dabigatran etexilate (Verified Allergy, Mild, itching, 01/25/19) codeine (Verified Adverse Reaction, Mild, upset stomach, 10/26/18) GME ATTESTATION GME ATTESTATION I saw and evaluated the patient. I agree with the findings and plan of care as documented in the documenters note. I spent 45 minutes coordinating this patient's discharge. GERMAN ARAGON MD May 28, 2019 10:14 COLBY PATHAK MD May 28, 2019 10:57
[2019-05-28] MEDS ORDERED: MORP15TA2 PO (10:31)
== END 2019-05-28 12:23 | disposition home health service (06) | DRG 861 ==
LOC: M ED 03:40 → M ED INP 05:45 → M MSPAV 06:48
PROVIDERS: ADMIT General Practice; ATTEND Internal Medicine
DX: G89.18 Other acute postprocedural pain (principal); I50.32 Chronic diastolic (congestive) heart failure; E11.22 Type 2 diabetes mellitus with diabetic chronic kidney disease; I27.20 Pulmonary hypertension, unspecified; I48.0 Paroxysmal atrial fibrillation; N18.3 Chronic kidney disease, stage 3 (moderate); M46.44 Discitis, unspecified, thoracic region; C90.01 Multiple myeloma in remission; E03.9 Hypothyroidism, unspecified; E55.9 Vitamin D deficiency, unspecified; M81.0 Age-related osteoporosis without current pathological fracture; Z95.0 Presence of cardiac pacemaker; Z88.0 Allergy status to penicillin; Z88.5 Allergy status to narcotic agent; Z88.8 Allergy status to other drugs, medicaments and biological substances; Z91.013 Allergy to seafood; Z91.040 Latex allergy status; Z79.4 Long term (current) use of insulin; Z79.891 Long term (current) use of opiate analgesic; Z79.01 Long term (current) use of anticoagulants; Z79.899 Other long term (current) drug therapy; Z85.118 Personal history of other malignant neoplasm of bronchus and lung; Z86.61 Personal history of infections of the central nervous system

== ENCOUNTER → 2019-05-30 | Outpatient (REF) | payer OTHER, MEDICARE ==
[~2019-05-30] MED LIST changes: +CEFA2INJ4 IV; +MORP15TA2 PO; +MORP15TASA PO; +MSIR30TA PO; +PATIENT COMMENT; +POTA1TAB23 PO; +SENN-52 PO; +TRIA1CR80 TOP; +VITACHTA PO
[2019-05-30 14:43] LABS: BASO % 0.3 % (0.0-1.0); EOS # 0.2 10^3/uL (0.0-0.5); HEMATOCRIT 35.3 % (36.0-47.0); HEMOGLOBIN 10.5 g/dl (12.0-15.5); LYMPH # 1.1 10^3/uL (1.5-5.0); LYMPH % 11.4 % (24.0-44.0); MEAN CORPUSCULAR HEMOGLOBIN 30.9 pg (27.0-33.0); MEAN CORPUSCULAR HGB CONC 29.7 g/dl (32.0-36.5); MEAN CORPUSCULAR VOLUME 103.8 fl (80.0-96.0); MONO # 0.7 10^3/uL (0.0-0.8); MONO % 7.6 % (0.0-5.0); NEUTROPHILS # 7.3 10^3/uL (1.5-8.5); NEUTROPHILS % 77.7 % (36.0-66.0); PLATELET COUNT, AUTOMATED 207 10^3/uL (150-450); WHITE BLOOD COUNT 9.4 10^3/uL (4.0-10.0)
[2019-05-30 15:01] LABS: ALBUMIN 2.8 GM/DL (3.2-5.2); BILIRUBIN,TOTAL 0.2 MG/DL (0.2-1.0); C REACTIVE PROTEIN QUANTITATIV 3.9 MG/DL (0.00-0.30); CALCIUM LEVEL 9.1 MG/DL (8.8-10.2); POTASSIUM SERUM 4.2 MEQ/L (3.5-5.1); TOTAL PROTEIN 5.8 GM/DL (6.4-8.2)
[2019-05-30 15:17] LABS: ERYTHROCYTE SEDIMENTATION RATE 62 mm/hr (0-30)
== END ==
LOC: M SHH 13:48
PROVIDERS: ATTEND Internal Medicine Infectious Disease
DX: M46.44 Discitis, unspecified, thoracic region (principal); B95.61 Methicillin susceptible Staphylococcus aureus infection as the cause of diseases classified elsewhere; R78.81 Bacteremia; T82.7XXA Infection and inflammatory reaction due to other cardiac and vascular devices, implants and grafts, initial encounter; Y71.2 Prosthetic and other implants, materials and accessory cardiovascular devices associated with adverse incidents

== ENCOUNTER → 2019-06-06 | Outpatient (REF) | payer OTHER, MEDICARE ==
[2019-06-06 13:26] LABS: BASO % 0.4 % (0.0-1.0); EOS # 0.3 10^3/uL (0.0-0.5); EOS % 3.4 % (0.0-3.0); HEMATOCRIT 39.4 % (36.0-47.0); HEMOGLOBIN 11.6 g/dl (12.0-15.5); LYMPH # 1.2 10^3/uL (1.5-5.0); LYMPH % 11.7 % (24.0-44.0); MEAN CORPUSCULAR HEMOGLOBIN 30.3 pg (27.0-33.0); MEAN CORPUSCULAR HGB CONC 29.4 g/dl (32.0-36.5); MEAN CORPUSCULAR VOLUME 102.9 fl (80.0-96.0); MONO # 0.8 10^3/uL (0.0-0.8); NEUTROPHILS # 7.6 10^3/uL (1.5-8.5); NEUTROPHILS % 75.5 % (36.0-66.0); PLATELET COUNT, AUTOMATED 216 10^3/uL (150-450); RED BLOOD COUNT 3.83 10^6/uL (4.00-5.40)
[2019-06-06 13:52] LABS: ALBUMIN 2.9 GM/DL (3.2-5.2); ALT/SGPT 6 U/L (12-78); BILIRUBIN,TOTAL 0.3 MG/DL (0.2-1.0); BLOOD UREA NITROGEN 11 MG/DL (7-18); C REACTIVE PROTEIN QUANTITATIV 1.24 MG/DL (0.00-0.30); CALCIUM LEVEL 8.9 MG/DL (8.8-10.2); CARBON DIOXIDE LEVEL 29 MEQ/L (21-32); CHLORIDE LEVEL 101 MEQ/L (98-107); CREATININE FOR GFR 0.92 MG/DL (0.55-1.30); GLOMERULAR FILTRATION RATE > 60.0 (>39); GLUCOSE, FASTING 121 MG/DL (70-100); POTASSIUM SERUM 4.2 MEQ/L (3.5-5.1); SODIUM LEVEL 138 MEQ/L (136-145); TOTAL PROTEIN 6.1 GM/DL (6.4-8.2)
[2019-06-06 14:43] LABS: ERYTHROCYTE SEDIMENTATION RATE 58 mm/hr (0-30)
== END ==
LOC: M SHH 12:54
PROVIDERS: ATTEND Internal Medicine Infectious Disease
DX: M46.44 Discitis, unspecified, thoracic region (principal); B95.61 Methicillin susceptible Staphylococcus aureus infection as the cause of diseases classified elsewhere; T82.7XXA Infection and inflammatory reaction due to other cardiac and vascular devices, implants and grafts, initial encounter; R78.81 Bacteremia

== ENCOUNTER → 2019-06-14 | Outpatient (REF) | payer OTHER, MEDICARE ==
[2019-06-14 12:44] LABS: BASO % 0.2 % (0.0-1.0); EOS # 0.1 10^3/uL (0.0-0.5); EOS % 1.4 % (0.0-3.0); HEMOGLOBIN 10.9 g/dl (12.0-15.5); LYMPH # 1.3 10^3/uL (1.5-5.0); LYMPH % 13.7 % (24.0-44.0); MEAN CORPUSCULAR HEMOGLOBIN 30.8 pg (27.0-33.0); MEAN CORPUSCULAR HGB CONC 30.3 g/dl (32.0-36.5); MEAN CORPUSCULAR VOLUME 101.7 fl (80.0-96.0); MONO # 0.8 10^3/uL (0.0-0.8); MONO % 8.1 % (0.0-5.0); NEUTROPHILS # 7.2 10^3/uL (1.5-8.5); NEUTROPHILS % 75.9 % (36.0-66.0); PLATELET COUNT, AUTOMATED 177 10^3/uL (150-450); RED BLOOD COUNT 3.54 10^6/uL (4.00-5.40); WHITE BLOOD COUNT 9.5 10^3/uL (4.0-10.0)
[2019-06-14 13:07] LABS: ALBUMIN 2.8 GM/DL (3.2-5.2); ALT/SGPT 11 U/L (12-78); BILIRUBIN,TOTAL 0.3 MG/DL (0.2-1.0); BLOOD UREA NITROGEN 12 MG/DL (7-18); C REACTIVE PROTEIN QUANTITATIV 3.81 MG/DL (0.00-0.30); CARBON DIOXIDE LEVEL 33 MEQ/L (21-32); CHLORIDE LEVEL 103 MEQ/L (98-107); CREATININE FOR GFR 0.82 MG/DL (0.55-1.30); GLOMERULAR FILTRATION RATE > 60.0 (>39); GLUCOSE, FASTING 79 MG/DL (70-100); POTASSIUM SERUM 4.6 MEQ/L (3.5-5.1); SODIUM LEVEL 139 MEQ/L (136-145); TOTAL PROTEIN 5.9 GM/DL (6.4-8.2)
[2019-06-14 13:18] LABS: ERYTHROCYTE SEDIMENTATION RATE 63 mm/hr (0-30)
== END ==
LOC: M SHH 12:08
PROVIDERS: ATTEND Internal Medicine Infectious Disease
DX: M46.44 Discitis, unspecified, thoracic region (principal); B95.61 Methicillin susceptible Staphylococcus aureus infection as the cause of diseases classified elsewhere; T82.7XXA Infection and inflammatory reaction due to other cardiac and vascular devices, implants and grafts, initial encounter; R78.81 Bacteremia

== ENCOUNTER → 2019-06-28 | Outpatient (REF) | payer OTHER ==
[~2019-06-28] MED LIST changes: +D3 H10002 PO; -SIMV20TA2 OR; +SIMV20TA22 OR; +[UNRECOGNIZED DRUG - CODE] PO
[2019-06-28 18:25] LABS: BASO % 0.3 % (0.0-1.0); EOS # 0.1 10^3/uL (0.0-0.5); EOS % 1.1 % (0.0-3.0); HEMATOCRIT 40.2 % (36.0-47.0); HEMOGLOBIN 12.3 g/dl (12.0-15.5); LYMPH # 1.7 10^3/uL (1.5-5.0); LYMPH % 13.7 % (24.0-44.0); MEAN CORPUSCULAR HEMOGLOBIN 30.5 pg (27.0-33.0); MEAN CORPUSCULAR HGB CONC 30.6 g/dl (32.0-36.5); MEAN CORPUSCULAR VOLUME 99.8 fl (80.0-96.0); MONO # 0.8 10^3/uL (0.0-0.8); MONO % 6.9 % (0.0-5.0); NEUTROPHILS # 9.4 10^3/uL (1.5-8.5); NEUTROPHILS % 77.1 % (36.0-66.0); PLATELET COUNT, AUTOMATED 258 10^3/uL (150-450); RED BLOOD COUNT 4.03 10^6/uL (4.00-5.40); WHITE BLOOD COUNT 12.2 10^3/uL (4.0-10.0)
[2019-06-28 18:48] LABS: ERYTHROCYTE SEDIMENTATION RATE 45 mm/hr (0-30)
== END ==
LOC: M SFHCPLAZ 17:13
PROVIDERS: ATTEND Internal Medicine Infectious Disease
DX: M46.44 Discitis, unspecified, thoracic region (principal)

== ENCOUNTER → 2019-07-04 | Outpatient (REF) | payer OTHER ==
[~2019-07-04] MED LIST changes: -DIGO0.12 PO; +DIGO0.123 PO; -DIGO0.25 PO; +DIGO0.253 PO
== END ==
LOC: M LAB REF 16:44
PROVIDERS: ATTEND Internal Medicine
DX: I11.0 Hypertensive heart disease with heart failure (principal); I50.32 Chronic diastolic (congestive) heart failure

== ENCOUNTER → 2019-07-26 | Outpatient (REF) | payer OTHER ==
[2019-07-26 14:41] LABS: BASO # 0.1 10^3/uL (0.0-0.2); BASO % 0.4 % (0.0-1.0); EOS # 0.1 10^3/uL (0.0-0.5); EOS % 1.1 % (0.0-3.0); HEMOGLOBIN 11.9 g/dl (12.0-15.5); LYMPH # 1.4 10^3/uL (1.5-5.0); MEAN CORPUSCULAR HEMOGLOBIN 29.6 pg (27.0-33.0); MEAN CORPUSCULAR HGB CONC 30.5 g/dl (32.0-36.5); MONO # 0.8 10^3/uL (0.0-0.8); MONO % 6.4 % (0.0-5.0); NEUTROPHILS # 9.4 10^3/uL (1.5-8.5); NEUTROPHILS % 79.2 % (36.0-66.0); PLATELET COUNT, AUTOMATED 235 10^3/uL (150-450); RED BLOOD COUNT 4.02 10^6/uL (4.00-5.40); WHITE BLOOD COUNT 11.9 10^3/uL (4.0-10.0)
[2019-07-26 15:57] LABS: ERYTHROCYTE SEDIMENTATION RATE 49 mm/hr (0-30)
== END ==
LOC: M SFHCPLAZ 14:23
PROVIDERS: ATTEND Internal Medicine Infectious Disease
DX: M46.44 Discitis, unspecified, thoracic region (principal)

== ENCOUNTER → 2019-08-08 | Outpatient (REF) | payer OTHER ==
[~2019-08-08] MED LIST changes: +VITA100066 PO
== END ==
LOC: M SFHCPLAZ 13:42
PROVIDERS: ATTEND Internal Medicine Infectious Disease
DX: M46.44 Discitis, unspecified, thoracic region (principal)

== ENCOUNTER → 2019-08-23 | Outpatient (REF) | payer OTHER, BC ==
[2019-08-23 18:11] LABS: BASO # 0.1 10^3/uL (0.0-0.2); BASO % 0.3 % (0.0-1.0); EOS # 0.1 10^3/uL (0.0-0.5); EOS % 0.7 % (0.0-3.0); HEMATOCRIT 41.7 % (36.0-47.0); HEMOGLOBIN 12.5 g/dl (12.0-15.5); LYMPH # 1.3 10^3/uL (1.5-5.0); LYMPH % 8.6 % (24.0-44.0); MEAN CORPUSCULAR HEMOGLOBIN 28.9 pg (27.0-33.0); MEAN CORPUSCULAR VOLUME 96.3 fl (80.0-96.0); MONO # 0.8 10^3/uL (0.0-0.8); MONO % 5.6 % (0.0-5.0); NEUTROPHILS # 12.6 10^3/uL (1.5-8.5); NEUTROPHILS % 84.1 % (36.0-66.0); PLATELET COUNT, AUTOMATED 228 10^3/uL (150-450); RED BLOOD COUNT 4.33 10^6/uL (4.00-5.40)
[2019-08-23 19:18] LABS: ERYTHROCYTE SEDIMENTATION RATE 36 mm/hr (0-30)
== END ==
LOC: M SFHCPLAZ 15:05
PROVIDERS: ATTEND Internal Medicine Infectious Disease
DX: M46.44 Discitis, unspecified, thoracic region (principal)

== ENCOUNTER → 2019-09-09 | Outpatient (REF) | payer OTHER, BC ==
[2019-09-09 14:27] LABS: BASO # 0.1 10^3/uL (0.0-0.2); BASO % 0.3 % (0.0-1.0); EOS # 0.2 10^3/uL (0.0-0.5); HEMATOCRIT 40.7 % (36.0-47.0); HEMOGLOBIN 12.5 g/dl (12.0-15.5); LYMPH # 1.7 10^3/uL (1.5-5.0); LYMPH % 10.9 % (24.0-44.0); MEAN CORPUSCULAR HEMOGLOBIN 28.8 pg (27.0-33.0); MEAN CORPUSCULAR HGB CONC 30.7 g/dl (32.0-36.5); MEAN CORPUSCULAR VOLUME 93.8 fl (80.0-96.0); MONO # 0.8 10^3/uL (0.0-0.8); NEUTROPHILS # 12.6 10^3/uL (1.5-8.5); NEUTROPHILS % 81.6 % (36.0-66.0); PLATELET COUNT, AUTOMATED 261 10^3/uL (150-450); RED BLOOD COUNT 4.34 10^6/uL (4.00-5.40); WHITE BLOOD COUNT 15.5 10^3/uL (4.0-10.0)
[2019-09-09 14:46] LABS: ERYTHROCYTE SEDIMENTATION RATE 32 mm/hr (0-30)
== END ==
LOC: M LAB REF 14:10
PROVIDERS: ATTEND Internal Medicine Infectious Disease
DX: M46.44 Discitis, unspecified, thoracic region (principal)

== ENCOUNTER → 2019-10-05 | Outpatient (REF) | payer OTHER ==
[~2019-10-05] MED LIST changes: +VITAD1000T PO
[2019-10-05 15:46] LABS: BASO % 0.3 % (0.0-1.0); EOS # 0.2 10^3/uL (0.0-0.5); EOS % 1.1 % (0.0-3.0); HEMATOCRIT 39.8 % (36.0-47.0); HEMOGLOBIN 12.4 g/dl (12.0-15.5); LYMPH # 1.5 10^3/uL (1.5-5.0); MEAN CORPUSCULAR HEMOGLOBIN 28.5 pg (27.0-33.0); MEAN CORPUSCULAR HGB CONC 31.2 g/dl (32.0-36.5); MEAN CORPUSCULAR VOLUME 91.5 fl (80.0-96.0); MONO # 1.1 10^3/uL (0.0-0.8); MONO % 7.7 % (0.0-5.0); NEUTROPHILS # 10.8 10^3/uL (1.5-8.5); NEUTROPHILS % 79.1 % (36.0-66.0); PLATELET COUNT, AUTOMATED 242 10^3/uL (150-450); RED BLOOD COUNT 4.35 10^6/uL (4.00-5.40); WHITE BLOOD COUNT 13.6 10^3/uL (4.0-10.0)
[2019-10-05 18:08] LABS: ERYTHROCYTE SEDIMENTATION RATE 34 mm/hr (0-30)
== END ==
LOC: M LAB REF 15:27
PROVIDERS: ATTEND Internal Medicine Infectious Disease
DX: M46.44 Discitis, unspecified, thoracic region (principal)

== ENCOUNTER → 2019-10-19 | Outpatient (REF) | payer BC | LOC: M SFHCPLAZ 14:50 | PROVIDERS: ATTEND Internal Medicine Infectious Disease | DX: M46.44 Discitis, unspecified, thoracic region (principal) ==

== ENCOUNTER → 2019-11-30 | Outpatient (REF) | payer BC ==
[~2019-11-30] MED LIST changes: +OXYC-1 PO; -OXYC15TA76 PO
[2019-11-30 15:26] LABS: BASO % 0.4 % (0.0-1.0); EOS # 0.1 10^3/uL (0.0-0.5); EOS % 1.3 % (0.0-3.0); HEMATOCRIT 38.4 % (36.0-47.0); HEMOGLOBIN 12.2 g/dl (12.0-15.5); LYMPH # 2.2 10^3/uL (1.5-5.0); LYMPH % 19.5 % (24.0-44.0); MEAN CORPUSCULAR HEMOGLOBIN 29.7 pg (27.0-33.0); MEAN CORPUSCULAR HGB CONC 31.8 g/dl (32.0-36.5); MEAN CORPUSCULAR VOLUME 93.4 fl (80.0-96.0); MONO # 0.8 10^3/uL (0.0-0.8); MONO % 7.2 % (0.0-5.0); NEUTROPHILS # 7.8 10^3/uL (1.5-8.5); NEUTROPHILS % 70.4 % (36.0-66.0); PLATELET COUNT, AUTOMATED 214 10^3/uL (150-450); RED BLOOD COUNT 4.11 10^6/uL (4.00-5.40)
[2019-11-30 16:15] LABS: ERYTHROCYTE SEDIMENTATION RATE 31 mm/hr (0-30)
== END ==
LOC: M LAB REF 14:34
PROVIDERS: ATTEND Internal Medicine Infectious Disease
DX: M46.44 Discitis, unspecified, thoracic region (principal)

== ENCOUNTER → 2019-12-15 | Outpatient (CLI) | payer BC ==
[~2019-12-15] MED LIST changes: +SODIUM CHLORIDE 0.9% INJ 10 ML SYR IV PRN
== END ==
LOC: M ONCM 14:26
PROVIDERS: ATTEND Internal Medicine Infectious Disease
DX: Z53.9 Procedure and treatment not carried out, unspecified reason (principal)

== ENCOUNTER → 2019-12-15 | Outpatient (REF) | payer BC ==
[~2019-12-15] MED LIST changes: -SODIUM CHLORIDE 0.9% INJ 10 ML SYR IV PRN
[2019-12-15 16:24] LABS: ALBUMIN 3.4 GM/DL (3.2-5.2); ALT/SGPT 21 U/L (12-78); BILIRUBIN,TOTAL 0.5 MG/DL (0.2-1.0); BLOOD UREA NITROGEN 17 MG/DL (7-18); CALCIUM LEVEL 9.6 MG/DL (8.8-10.2); CARBON DIOXIDE LEVEL 28 MEQ/L (21-32); CHLORIDE LEVEL 103 MEQ/L (98-107); CREATININE FOR GFR 0.91 MG/DL (0.55-1.30); GLOMERULAR FILTRATION RATE > 60.0 (>39); GLUCOSE, FASTING 135 MG/DL (70-100); MAGNESIUM LEVEL 2.3 MG/DL (1.8-2.4); POTASSIUM SERUM 4.1 MEQ/L (3.5-5.1); SODIUM LEVEL 136 MEQ/L (136-145); TOTAL PROTEIN 6.9 GM/DL (6.4-8.2)
== END ==
LOC: M LAB REF 15:38
PROVIDERS: ATTEND Internal Medicine Infectious Disease
DX: R25.2 Cramp and spasm (principal)

== ENCOUNTER → 2020-01-11 | Outpatient (REF) | payer BC ==
[~2020-01-11] MED LIST changes: +CEFA5SUS PO; +D31000TA2 PO; +DIFI200T PO; +QUET50TA3 PO; -QUET5TAB PO; +VANC125C3 PO; -VITAD1000T PO; -[UNRECOGNIZED DRUG - CODE] PO
== END ==
LOC: M SFHCPLAZ 12:05
PROVIDERS: ATTEND Internal Medicine Infectious Disease
DX: R19.7 Diarrhea, unspecified (principal)

== ENCOUNTER → 2020-01-15 | Outpatient (REF) | payer BC ==
[~2020-01-15] MED LIST changes: -CEFA5SUS PO; -D31000TA2 PO; -DIFI200T PO; -QUET50TA3 PO; +QUET5TAB PO; -VANC125C3 PO; +VITAD1000T PO; +[UNRECOGNIZED DRUG - CODE] PO
== END ==
LOC: M SFHCPLAZ 11:27
PROVIDERS: ATTEND Internal Medicine Infectious Disease
DX: R19.7 Diarrhea, unspecified (principal)

== ENCOUNTER → 2020-03-11 | Outpatient (REF) | payer BC ==
[~2020-03-11] MED LIST changes: +D31000TA2 PO; +VANC125C3 PO; -VITAD1000T PO
== END ==
LOC: M SFHCPLAZ 11:53
PROVIDERS: ATTEND Internal Medicine Infectious Disease
DX: A04.72 Enterocolitis due to Clostridium difficile, not specified as recurrent (principal)

== ENCOUNTER 2020-04-18 16:03 | Outpatient (CLI) | payer BC ==
[~2020-04-18] VITALS: Ht 152.4 cm; Wt 71.0 kg
[~2020-04-18 16:03] MED LIST changes: +BEZLOTOXUMAB in NS 100 ML OVER 1 HR IV ONE; +SODIUM CHLORIDE 0.9% INJ 10 ML SYR IV PRN
[2020-04-18 16:05] VITALS: BP 181/84
[2020-04-18 18:05] VITALS: BP 160/79
[2020-04-19] MEDS ORDERED: SODIUM CHLORIDE 0.9% INJ 10 ML SYR IV SCH (09:00)
== END 2020-04-18 18:05 | disposition home or self-care (01) ==
LOC: M INFU 16:03
PROVIDERS: ATTEND Internal Medicine Infectious Disease
DX: A04.71 Enterocolitis due to Clostridium difficile, recurrent (principal)
CPT/HCPCS: 96365; J0565

== ENCOUNTER → 2020-05-15 | Outpatient (REF) | payer BC ==
[~2020-05-15] MED LIST changes: -BEZLOTOXUMAB in NS 100 ML OVER 1 HR IV ONE; -SODIUM CHLORIDE 0.9% INJ 10 ML SYR IV PRN
[2020-05-16 14:19] LABS: CLOSTRIDIUM DIFFICILE PCR POSITIVE (NEGATIVE)
== END ==
LOC: M LAB REF 12:29
PROVIDERS: ATTEND Internal Medicine Infectious Disease
DX: R19.7 Diarrhea, unspecified (principal)

== ENCOUNTER → 2020-07-17 | Outpatient (REF) | payer BC ==
[2020-07-17 19:36] LABS: CLOSTRIDIUM DIFFICILE PCR POSITIVE (NEGATIVE)
== END ==
LOC: M SFHCPLAZ 15:20
PROVIDERS: ATTEND Internal Medicine Infectious Disease
DX: A04.72 Enterocolitis due to Clostridium difficile, not specified as recurrent (principal)

== ENCOUNTER → 2020-09-01 | Outpatient (REF) | payer BC ==
[2020-09-01 14:51] LABS: CLOSTRIDIUM DIFFICILE PCR NEGATIVE (NEGATIVE)
== END ==
LOC: M LAB REF 13:28
PROVIDERS: ATTEND Internal Medicine Infectious Disease
DX: A04.72 Enterocolitis due to Clostridium difficile, not specified as recurrent (principal)

== ENCOUNTER → 2020-09-06 | Outpatient (CLI) | payer BC ==
[~2020-09-06] MED LIST changes: +CEFA5SUS PO; +DIFI200T PO; +QUET50TA3 PO; -QUET5TAB PO; -[UNRECOGNIZED DRUG - CODE] PO
== END ==
LOC: M LABSMTC 10:05
PROVIDERS: ATTEND Anesthesiology
DX: Z01.812 Encounter for preprocedural laboratory examination (principal); Z20.822 Contact with and (suspected) exposure to COVID-19

== ENCOUNTER → 2020-09-06 | Outpatient (CLI) | payer BC ==
[~2020-09-06] MED LIST changes: +GASTROGRAFIN SOLUTION 30ML (Q9963) As Ordered ONE; +ISOVUE-370 76% 100ML VIAL As Ordered ONE
--- NOTE | 2020-09-07 07:50 | REP ---
INDICATION: CLOSTRIDIUM DIFFICILE COLITIS. COMPARISON: 03/22/2019 TECHNIQUE: Axial contrast-enhanced images from the lung bases to the pubic symphysis using oral and 100 cc Isovue 370 intravenous contrast material. Precontrast and delayed images of the abdomen obtained along with coronal and sagittal reformations.. This CT examination was performed using the following dose reduction techniques: Automated exposure control, adjustment of mA and/or kv according to the patient's size, and the use of iterative reconstruction technique. FINDINGS: Lung bases demonstrate chronic appearing changes. Hepatomegaly and hepatosteatosis noted along with few scattered small benign hepatic cysts. A subtle vague area of insinuating heterogeneous density in the left lobe remains unchanged through delayed images and is nonspecific possibly representing areas of focal fatty sparing. Spleen, pancreas, gallbladder, bilateral adrenal glands and kidneys are normal. There is no evidence for bowel obstruction or perforation. There is mild mucosal thickening and pericolonic stranding involving the distal descending through sigmoid colon suggesting infectious/inflammatory process. No associated ascites or drainable collection/abscess. Pelvis demonstrates normal bladder and age-appropriate uterus/adnexa No ascites. No free air. No intraperitoneal or retroperitoneal adenopathy. Abdominal aorta and vasculature appear normal. Musculoskeletal structures are intact and without acute osseous abnormality. IMPRESSION: 1. Infectious/inflammatory colitis involving the distal descending through sigmoid colon without associated bowel obstruction, perforation, ascites or drainable collection/abscess. Remainder of the enteric system is normal. 2. Hepatomegaly and hepatosteatosis with vague ill-defined parenchymal differentiation in the left lobe is nonspecific. This may reflect focal fatty sparing and less likely an insinuating underlying hepatic pathology. Consider short-term follow-up ultrasound or contrast-enhanced MRI for re-evaluation. <Electronically signed by Bert Watts > 09/07/20 [id number]
== END ==
LOC: M RAD 13:10
PROVIDERS: ATTEND Internal Medicine Infectious Disease
DX: A04.72 Enterocolitis due to Clostridium difficile, not specified as recurrent (principal); R16.0 Hepatomegaly, not elsewhere classified
CPT/HCPCS: 74178; Q9963; Q9967

== ENCOUNTER 2020-09-10 12:09 | Day surgery (SDC) | payer BC ==
[~2020-09-10] VITALS: Ht 152.4 cm; Wt 83.8 kg
[~2020-09-10 12:09] MED LIST changes: -GASTROGRAFIN SOLUTION 30ML (Q9963) As Ordered ONE; -ISOVUE-370 76% 100ML VIAL As Ordered ONE; +NS 1,000 ML IV ONE
[2020-09-10] MEDS ORDERED: FECAL MICROBIOTA PREPARATION 250 ML BTL (J3590) XX ONE (12:15)
--- OUTSIDE RECORDS SUMMARY | 2020-09-10 12:15 | CCD | Continuity of Care Document ---
Author Organization Unknown Address Unknown Phone Unavailable Care Team Providers Care Sheet Metal Worker Helper Name Role Phone Jhon Louis DO AUTM [phone] Simba Dotson JR, MD AUTM Unavailable Scar Bynum MD AUT [phone] Problems Active Problems Provider Date Disorder of protein metabolism Lyle Kolb D.O. On set: 01/07/2012 Hypercalcemia Lyle Kolb D.O. Onset: 2011 Hypothyroidism Lyle Kolb D.O. Onset: 2011 Vitamin D deficiency Lyle Kolb D.O. Onset: 01/06 Essential hypertension Lyle Kolb D.O. Onset: Anemia Lyle Kolb D.O. Onset: 2011 Muscle abscess of back Onset: Atrial fibrillation with rapid ventricular response Onset: Abnormal findings on diagnostic imaging of lung Onset: Candidiasis of mouth Onset: Acute exacerbation of chronic obstructive airways disease Onset: Congestive heart failure Onset: 00 Discitis Onset: Disorganized thinking Onset: Hypokalemia Onset: Hypoxemia Onset: IgG myeloma Onset: Backache Onset: Long-term current use of bisphosphonates Onset: Pneumonia Onset: Multiple myeloma Onset: Multiple myeloma in remission Onset: 07/2017 Neoplasm of back Onset: Long-term current use of drug therapy On set: Mass of body structure Onset: Sepsis Onset: Mass of soft tissue Onset: Urinary tract infectious disease Onset: Viral upper respiratory tract infection Onset: Chronic kidney disease stage 3 Onset: Social History Type Date Description Comments Sex Unknown Tobacco Use Start: Unknown End: Unknown Former Cigarette Smo ker 1/2 Pack Daily QUIT 10 YRS AGO ETOH Use Drinks Alcoholic Beverages Rarel y Tobacco Use Start: Unknown End: Unknown Patient is a former smoker Allergies, Adverse Reactions, Alerts Active Allergies Reaction Severity Comments Date Penicillin rash 10/06/2011 Pravastatin 11/07/2011 Latex Allergy 03/11/2016 Shellfish-derived Products 0 03/11/2016 Codeine stomach ache 05/28/2017 Medications Active Medications SIG Qnty Indications Ordering Provide r Date Januvia 100mg Tablets Take One Tablet By Mouth Every Day 90tabs Simba Dotson MD 01/09/2020 Cholecalciferol (Vitamin D3) 25mcg Tablet Take One Tablet By Mouth @8Am 94tabs Simba Dotson MD 11/23/2019 Vitamin D-1000 Maximum Strength 25mcg (1000 Ut) Tablets 1 by mouth every day 30tabs Shaina Sparks 10/03/2019 Unifine Pentips Plus 31G X 8 mm Mi sc Use Daily 30units Simba Dotson MD 09/02/2019 Vitamin D3 25mcg Tablet take one tablet by mouth @8am 90tabs Simba Dotson MD 07/08/2019 Calcium 600/Vitamin D 306-198ic-Njtm Chewtabs 1 by mouth every day 90units Shaina Sparks 04/12/2019 Lidocaine 4% Cream apply to back four times a day as needed dx b02.29 45gm Simba clark MD 03/11/2019 Furosemide 40mg Tablets Take One Tablet By Mouth @8Am and Take One Tablet @5PM 180tabs Simba condon MD 02/10/2019 Levothyroxine Sodium 75mcg Tablets Take One Tablet By Mouth @8Am 90tabs Simba Dotson MD 0 02/08/2019 Colesvelam 1 daily 30units Simba Dotson MD Potassium Chloride ER 10Meq Tablet s ER take two tablets by mouth @8am and take two tablets by mouth @5pm 180tabs Simba Dotson MD 06/22/2018 Triamcinolone Acetonide 0.1% Ointm ent apply to rash in groin and under right breast daily as needed 80gm Simba Dotson MD 09/25/2017 [facility] Finepoint Lancets Misc test twice a day e11.9 200units Simba Dotson MD 08/26/19 18 Glaukos 2 w/Device Kit test twice a day and as directed e11.4 1units Simba Dotson MD 08/03/2017 [employer] Ultra Blue Strips use twice daily to check blood sugar dx e11.9 200units Simba condon MD 08/03/2017 Levemir Flextouch 10 0Unit/ML Solution Pen-Inject [id number] Units Under The Skin Daily 45ml Luis rafiq Dotson MD 07/05/2017 Xarelto 20mg Tablets Take One Tablet By Mouth @5PM 30tabs Simba Dotson MD 05/28/2017 Multi For Her Capsules 1 by mouth every day Simba Dotson MD 12/31/2016 Lorazepam 1mg Tablets 1 tab by mouth four times a day as needed 120tabs Simba Dotson MD 09/24 Bisoprolol Fumarate 10mg Tablets Take One Tablet By Mouth @8Am and Take One Tablet @5PM 180tabs Co prabhjot Dotson MD 10/06/2011 Flecainide Acetate 50mg Tablets Take Two Tablets By Mouth @8Am and Take Two Tablets @5PM 360tabs Simba Dotson MD Digoxin 125mcg Tablets 1 by mouth every day (cards) Unknown Senna S 8.6-50mg Tablets 1 by mouth once a day Unknown Medications Administered in Office Medication SIG Qnty Indications Ordering Provider Date Immunization Adminstration,1 Vaccine/Tox oid Injection Simba Dotson MD 2017 Immunizations CPT Code Status Date Vaccine Lot # 14565 Given 04/30/2018 Influenza Virus Vaccine, Quadrivalent (Cciiv4), Derived From Cell [id number] Q2037 Given 05/14/2016 Fluvirin Virus Vaccine [id number] 01 [id number] Given 03/11/2016 Tetanus/Diptheria(Td)Toxoids Preservative Free Q2037 Given 05/03/2015 Fluvirin Virus Vaccine 32245 01 Q2037 Given 04/24/2014 Fluvirin Virus Vaccine 27741 21 Q2037 Given 05/27/2013 Fluvirin Virus Vaccine 92756 Given 11/17/2012 Zoster Vaccine Q2037 Given 04/19/2012 Fluvirin Virus Vaccine Vital Signs Date Vital Result Comment 07/03/2020 11:09am BP Systolic 136 mmHg BP Diastolic 78 mmHg Heart Rate 72 /min Height 61 inches 5'1" Weight 185.00 lb BMI (Body Mass Index) 35.0 kg/m2 03/02/2020 9:16am BP Systolic 132 mmHg BP Diastolic 76 mmHg Heart Rate 72 /min Height 61 inches 5'1" Weight 174.00 lb BMI (Body Mass Index) 32.9 kg/m2 Results Test Acquired Date Facility Test Result H/L Range Note CBC With Differential 07/06/2020 [place] [id number] [phone] White Blood Count 11.6 10 High 4.0-10.0 Red Blood Count 4.27 10 Normal 4.00-5.40 Hemoglobin 13.2 g/dL Normal 12.0-15.5 Hematocrit 41.4 % Normal 36.0-47.0 Mean Corpuscular Volume 97.0 fl High 80.0-96.0 Mean Corpuscular Hemoglobin 30.9 pg Normal 27.0-33.0 Mean Corpuscular HGB Conc 31.9 g/dL Low 32.0-36.5 Red Cell Distribution Width 15.1 % High 11.5-14.5 Platelet Count, Automated 225 10 Normal 150-450 Neutrophils % 76.0 % High 36.0-66.0 Lymph % 14.8 % Low 24.0-44.0 [place] % 6.2 % High 0.0-5.0 Eos % 1.3 % Normal 0.0-3.0 Baso % 0.5 % Normal 0.0-1.0 Immature Granulocyte % 1.2 % Normal 0-3.0 Nucleated Red Blood Cell % 0.0 % Normal 0-0 Neutrophils # 8.8 10 High 1.5-8.5 Lymph # 1.7 10 Normal 1.5-5.0 Blackford # 0.7 10 Normal 0.0-0.8 Eos # 0.2 10 Normal 0.0-0.5 Baso # 0.1 10 Normal 0.0-0.2 Comprehensive Metabolic Profil 07/06/[address] [address] [phone] Glucose, Fasting 199 mg/dL High 70-100 Blood Urea Nitrogen 14 mg/dL Normal 7-18 Creatinine For GFR 1.25 mg/dL Normal 0.55-1.30 Glomerular Filtration Rate 44.7 Normal >39 1 Sodium Level 135 mEq/L Low 136-145 Potassium Serum 3.9 mEq/L Normal 3.5-5.1 Chloride Level 100 mEq/L Normal 98-107 Carbon Dioxide Level 28 mEq/L Normal 21-32 Anion Gap 7 mEq/L Low 8-16 Calcium Level 10.8 mg/dL High 8.8-10.2 Ast/Sgot 10 U/L Normal 7-37 Alt/SGPT 24 U/L Normal 12-78 Alkaline Phosphatase 107 U/L Normal 45-117 Bilirubin,Total 0.5 mg/dL Normal 0.2-1.0 Total Protein 6.9 GM/DL Normal 6.4-8.2 Albumin 3.3 GM/DL Normal 3.2-5.2 Albumin/Globulin Ratio 0.9 Low 1.2-2.2 Immunoglobulin G,A,M 07/06/2020 [facility] [address] [place] [address] [phone] Immunoglobulin A 190.0 mg/dL Normal 70-400 Immunoglobulin G 732 mg/dL Normal 681-1648 Immunoglobulin M 41.3 mg/dL Normal 40-230 Immunotyping (Immunofixation) Serum (If 07/06/[address] [address] [phone] It Serum Interpretation SEE COMMENT Normal 2 Its Pathologist Review REV'D BY O ADJAP <SEE NOTE> Normal 3 Serum Protein Electrophoresis 07/06/[address] [address] [phone] Albumin % 58.5 % Normal 55.8-66.1 Jszhl-9-Pppyufwv % 5.5 % High 2.9-4.9 Ttanz-8-Qeqsmuclt % 10.7 % Normal 7.1-11.8 Ctle-1-Hqjucmtyq % 7.5 % High 4.7-7.2 Ocaw-1-Fnsqiqbwx % 6.2 % Normal 3.2-6.5 Gamma Globulin % 11.6 % Normal 11.1-18.8 Albumin 3.80 GM/DL Normal 3.29-5.55 Gysin-0-Duwpgnbuq 0.36 GM/DL Normal 0.17-0.41 Gatpu-3-Mmitiqsgt 0.70 GM/DL Normal 0.42-0.99 Smey-9-Jjwgrqmyb 0.49 GM/DL Normal 0.28-0.60 Nave-6-Yzrowdaab 0.40 GM/DL Normal 0.19-0.55 Gamma Globulins 0.75 GM/DL Normal 0.65-1.58 Total Protein 6.5 GM/DL Normal 6.4-8.2 Spep Interpretation SEE COMMENT Normal 4 Spep Pathologist Review REV'D BY O ADJAP <SEE NOTE> Normal 5 Free Eucaly[place]us [place] & Lambda LT Chains 07/06/2020 [facility] [address] [place] [address] [phone] Free Eucaly[place]us [place] Light Chains Serum 17.3 mg/L Normal 3. 3-19.4 Free Lambda Light Chains Serum 15.8 mg/L Normal 5.7-26.3 [place]/Lambda Ratio Serum 1.09 Normal 0.26-1.65 6 Complete Blood Count 07/03/2020 [facility] [place]: [place] [address] [phone] WBC 9.9 x10*3/UL 4.1 - 10.9 RBC 4.50 x10*6/UL 4.20 - 6.30 Hemoglobin 14.3 g/dL 12.0 - 18.0 Hematocrit 41.7 % 37.0 - 51.0 MCV 92.5 fL 80.0 - 97.0 MCH 31.8 pg 26.0 - 32.0 MCHC 34.4 g/dL 31.0 - 38.0 RDW 14.3 % High 11.6 - 13.7 PLT 191 x10*3/UL 140 - 440 MPV 7.8 FL 7.8 - 11.0 Lymph % 16.1 % 10.0 - 58.5 Mid % 5.0 % 1.7 - 9.3 Neut % 78.9 % 37.0 - 92.0 Lymph # 1.6 x10*3/UL 0.6 - 4.1 Mid # 0.5 x10*3/UL 0.1 - 0.6 Neut # 7.8 x10*3/UL 2.0 - 7.8 A1c 07/03/2020 [facility] , [place]: [place] [address] [phone] Hba1c 7.7 % High <5.7 7 Est Avg Glucose 174 mg/dL High 60 - 110 Comprehensive Chem Profile 07/03/2020 [facility] [place]: [place] [address] [phone] Glucose 130 mg/dL High 74 - 99 8 BUN 14 mg/dL 7 - 18 Creatinine 0.9 mg/dL 0.6 - 1.3 Sodium 137 mEq/L 136 - 145 Potassium 3.8 mEq/L 3.5 - 5.1 Chloride 99 mEq/L 98 - 107 Carbon Dioxide 29 mEq/L 21 - 32 Calcium 9.5 mg/dL 8.5 - 10.1 Alk. Phosphatase 103 mg/dL 46 - 116 Total Bilirubin 0.6 mg/dL 0.2 - 1.0 Ast (Sgot) 14 U/L Low 15 - 37 Alt (SGPT) 27 U/L 12 - 78 Albumin 3.3 g/dL Low 3.4 - 5.0 Total Protein 6.4 g/dL 6.4 - 8.2 A/G Ratio 1.06 CALC 1.00 - 1.90 GFR >= 60 mL/min >60 GFR >= 60 mL/min >60 9 Lipid Profile 07/03/2020 [facility] , [place]: [place] [address] [phone] Cholesterol 221 mg/dL High 131 - 200 Triglycerides 381 mg/dL High 30 - 150 HDL Cholesterol 40 mg/dL 35 - 60 LDL (Calculated) 105 CALC 50 - 159 Laboratory test finding 07/03/2020 [facility] [employer] [employer] jocelyn molina [place]: Dr Simba Dotson [place] [id number] [phone] Thyroid Stimulating Hormone 1.70 uIU/mL 0.3 6 - 3.74 Comprehensive Metabolic Profil 05/16/[address] [address] [phone] Glucose, Fasting 189 mg/dL High 70-100 Blood Urea Nitrogen 14 mg/dL Normal 7-18 Creatinine For GFR 1.02 mg/dL Normal 0.55-1.30 Glomerular Filtration Rate 56.6 Normal >39 1 0 Sodium Level 136 mEq/L Normal 136-145 Potassium Serum 4.0 mEq/L Normal 3.5-5.1 Chloride Level 101 mEq/L Normal 98-107 Carbon Dioxide Level 30 mEq/L Normal 21-32 Anion Gap 5 mEq/L Low 8-16 Calcium Level 10.0 mg/dL Normal 8.8-10.2 Ast/Sgot 11 U/L Normal 7-37 Alt/SGPT 24 U/L Normal 12-78 Alkaline Phosphatase 110 U/L Normal 45-117 Bilirubin,Total 0.5 mg/dL Normal 0.2-1.0 Total Protein 6.8 GM/DL Normal 6.4-8.2 Albumin 3.2 GM/DL Normal 3.2-5.2 Albumin/Globulin Ratio 0.9 Low 1.2-2.2 CBC With Differential 05/16/[address] [address] [phone] White Blood Count 11.8 10 High 4.0-10.0 Red Blood Count 4.38 10 Normal 4.00-5.40 Hemoglobin 14.0 g/dL Normal 12.0-15.5 Hematocrit 43.3 % Normal 36.0-47.0 Mean Corpuscular Volume 98.9 fl High 80.0-96.0 Mean Corpuscular Hemoglobin 32.0 pg Normal 27.0-33.0 Mean Corpuscular HGB Conc 32.3 g/dL Normal 32.0-36.5 Red Cell Distribution Width 14.8 % High 11.5-14.5 Platelet Count, Automated 198 10 Normal 150-450 Neutrophils % 76.7 % High 36.0-66.0 Lymph % 13.8 % Low 24.0-44.0 Blackford % 6.6 % High 0.0-5.0 Eos % 0.6 % Normal 0.0-3.0 Baso % 0.5 % Normal 0.0-1.0 Immature Granulocyte % 1.8 % Normal 0-3.0 Nucleated Red Blood Cell % 0.0 % Normal 0-0 Neutrophils # 9.1 10 High 1.5-8.5 Lymph # 1.6 10 Normal 1.5-5.0 [place] # 0.8 10 Normal 0.0-0.8 Eos # 0.1 10 Normal 0.0-0.5 Baso # 0.1 10 Normal 0.0-0.2 Immunoglobulin G,A,M 05/16/2020 [facility] enter [address] [place], [place] [id number] [phone] Immunoglobulin A 178.0 mg/dL Normal 70-400 Immunoglobulin G 633 mg/dL Low 681-1648 Immunoglobulin M 35.9 mg/dL Low 40-230 Immunotyping (Immunofixation) Serum (If 05/16/[address] [address] [phone] It Serum Interpretation SEE COMMENT Normal 11 Its Pathologist Review REV'D BY O ADJAP <SEE NOTE> Normal 12 Serum Protein Electrophoresis 05/16/[address] [address] [phone] Albumin % 59.5 % Normal 55.8-66.1 Jfkrf-8-Kuypggdv % 5.4 % High 2.9-4.9 Kppjn-5-Mdtqlppai % 11.6 % Normal 7.1-11.8 Hirj-0-Kpsnjqksn % 7.3 % High 4.7-7.2 Wwhl-0-Kgukmlfrg % 6.3 % Normal 3.2-6.5 Gamma Globulin % 9.9 % Low 11.1-18.8 Albumin 3.81 GM/DL Normal 3.29-5.55 Wpqrf-1-Klremuvgr 0.35 GM/DL Normal 0.17-0.41 Htmvy-4-Rywukvixk 0.74 GM/DL Normal 0.42-0.99 Bxyu-1-Ezlwnawpa 0.47 GM/DL Normal 0.28-0.60 Wpju-6-Bvwupyawk 0.40 GM/DL Normal 0.19-0.55 Gamma Globulins 0.63 GM/DL Low 0.65-1.58 Total Protein 6.4 GM/DL Normal 6.4-8.2 Spep Interpretation SEE COMMENT Normal 13 Spep Pathologist Review REV'D BY Freya MAIN <SEE NOTE> Normal 14 1 Units are mL/min/1.73 m2 Chronic Kidney Disease Staging per NKF: Stage I & II GFR >=60 Normal to Mildly Decreased Stage III GFR 30-59 Moderately Decreased Stage IV GFR 15-29 Severely Decreased Stage V GFR <15 Very Little GFR Left ESRD GFR <15 on ADJUDICATION SPECIALIST 2 NO MONOCLONAL BANDS NOTED. 3 REV'D BY Freya NELSON 4 NO M-SPIKE(S)NOTED. 5 REV'D BY Freya NELSON 6 Performed at: RN - [facility] [address] [id number] [place]: Jana Barbosa MD, Phone: [phone] Lab Result Notes: Pre-Diabetes 5.7 - 6.4 % Diabetes = or > 6.5% 8 100-125 mg/dL PRE-DIABET ES/FASTING >126 mg/dL DIABETES/FASTING 9 CHRONIC KIDNEY DISEASE STAGI NG PER NKF STAGE I & II GFR >= 60 NORMAL TO MILDLY DECREASED STAGE III GFR 30-59 MODERATELY DECREASED STAGE IV GFR 15-29 SEVERELY DECREASED STAGE V GFR <15 VERY LITTLE GFR LEFT ESRD GFR <15 ON ADJUDICATION SPECIALIST 10 Units are mL/min/1.73 m2 Chronic Kidney Disease Staging per NKF: Stage I & II GFR >=60 Normal to Mildly Decreased Stage III GFR 30-59 Moderately Decreased Stage IV GFR 15-29 Severely Decreased Stage V GFR <15 Very Little GFR Left ESRD GFR <15 on ADJUDICATION SPECIALIST 11 NO MONOCLONAL BANDS NOTED. 12 REV'D BY Freya NELSON [address] SERUM AND URINE IMMUNOTYPING. 14 REV'D BY Freya NELSON Procedures Date Code Description Status 12/30/2017 179150768 Diabetic Retinal Eye Exam Comple mackenzie 12/28/2017 [id number] Diabetic Retinal Eye Exam Comple mackenzie 07/16/2016 [id number] Colonoscopy Completed 04/04/2016 [id number] Diabetic Retinal Eye Exam Comple mackenzie 06/13/2015 [id number] Mammogram Completed 04/06/2014 [id number] Mammogram Completed 01/13/2013 [id number] Mammogram Completed 06/22/2012 [id number] Diabetic Retinal Eye Exam Comple [facility] 04/20/2012 [id number] Bone Mineral Density Test Comple [facility] 01/07/2012 [id number] Mammogram Completed 12/03/2010 [id number] Colonoscopy Completed Medical Devices Description No Information Available Encounters Type Date Location Provider Dx Diagnosis Office Visit 07/03/2020 11:00a [facility] 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 E11.65 Type 2 diabetes mellitus wit h hyperglycemia Z79.4 [facility] (current) use of i nsulin E78.00 Pure hypercholesterolemia, u nspecified C90.01 Multiple myeloma in [facility] n M46.44 Discitis, unspecified, thora cic region B95.61 [address] staph inf ct causing dis classd elswhr A04.71 Enterocolitis due to Clostri dium difficile, recurrent Assessments Date Code Description Provider 07/03/2020 I11.0 Hypertensive heart disease with heart failure Simba Dotson MD 07/03/2020 I50.32 Chronic diastolic (congestive) h eart failure Simba Dotson MD 07/03/2020 I48.20 Chronic atrial fibrillation, uns pecified Simba Dotson MD 07/03/2020 Z79.01 [facility] (current) use of antic oagulants Simba Dotson MD 07/03/2020 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 Simba Dotson MD 07/03/2020 E11.65 Type 2 diabetes mellitus with hy perglycemia Simba Dotson MD 07/03/2020 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 Simba Dotson MD 07/03/2020 E78.00 Pure hypercholesterolemia, unspe cified Simba Dotson MD 07/03/2020 C90.01 Multiple myeloma in remission Co llrafiq Albag,MD 07/03/2020 M46.44 Discitis, unspecified, thoracic region Simba Dotson MD 07/03/2020 B95.61 Methicillin suscepti ble Staphylococcus aureus infection as the cause of diseases classified elsewhere Simba Dotson MD 07/03/2020 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 * 10/03/2020 2:15 pm - Simba Dots[facility] 07/03/2020 - Simba Dotson MD* I11.0 Hypertensive heart disease with heart failure* Comments:* Compliance with meds and diet. 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 TLC discussed. Glycemic index discussed. * E11.65 Type 2 diabetes mellitus with hyperglycemia* Comments:* ABC's meet goal.Diabetic foot and eye exams up to date. TLC discussed. Glycemic index discussed. 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
--- OUTSIDE RECORDS SUMMARY | 2020-09-10 12:15 | CCD | Continuity of Care Document ---
Author Author Javier BURNETT M.D. Organization Unknown Address [address] [place] [address] Phone [phone] Care Team Providers Care Wind Farm Engineer Name Role Phone Simba Dotson M.D. AUTM [phone] Problems Active Problems Provider Date Diarrhea Godwin Burnett M.D. Onset: 09/04/19 21 Screening for malignant neoplasm of colon Godwin zamarripa M.D. Onset: 06/10/2016 Social History Type Date Description Comments Sex Unknown ETOH Use Denies alcohol use Tobacco Use Start: Unknown Patient has never smoked Allergies, Adverse Reactions, Alerts Description No Known Drug Allergies Medications Active Medications SIG Qnty Indications Ordering Provide r Date Sutab [phone] Tablets as directed 1box Godwin Burnett M.D. 09/04/2020 Bisoprolol Fumarate 10mg Tablets Take One Tablet By Mouth Twice A Day Unknown Levemir Flextouch 10 0Unit/ML Solution Pen-Inject Amalia Crouch DO Januvia 100mg Tablets Take One Tablet By Mouth Every Day Unknown Levothyroxine Sodium 75mcg Tablets Take One Tablet By Mouth Every Day Unknown Potassium Chloride Simona ER 20Meq Tablets ER Amalia Crouch DO Vitamin D 1000Unit Tablets Unknown Digoxin 125mcg Tablets Jacqueline Joel RPA-C Flecainide Acetate 50mg Tablets Simba Dotson M.D. Furosemide 40mg Tablets Simba Dotson M.D. Xarelto 20mg Tablets [place],Simba Quach M.D. Immunizations Description No Information Available Vital Signs Date Vital Result Comment 09/04/2020 2:53pm Height 60 inches 5'0" Weight 186.00 lb BP Systolic 133 mmHg BP Diastolic 88 mmHg Heart Rate 68 /min BMI (Body Mass Index) 36.3 kg/m2 Weight 84.370 kg Body Temperature 97.2 F 06/10/2016 11:32am Height 61 inches 5'1" Weight 211.00 lb BP Systolic 124 mmHg BP Diastolic 67 mmHg Heart Rate 71 /min BMI (Body Mass Index) 39.9 kg/m2 Weight 95.710 kg Results Description No Information Available Procedures Description No Information Available Medical Devices Description No Information Available Encounters Type Date Location Provider Dx Diagnosis Office Visit 09/04/2020 2:45p Main Office Godwin Burnett M.D. A 04.71 Enterocolitis due to Clostridium difficile, recurrent Assessments Date Code Description Provider 09/04/2020 A04.71 Clostridioides difficile infecti on Godwin Burnett M.D. Plan of Treatment Future Appointment(s):* 09/10/2020 1:30 pm - Godwin Burnett M.D. at Main Office 09/04/2020 - Godwin Burnett M.D.* A04.71 Clostridioides difficile infection * Comments:* 75 yo female who presents for a h/o refractory c.dificile induced diarrhea. Pt has been tried on numerous medications, which has not helped her diarrhea. She has had antibiotics, which caused the c.dificile diarrhea. She has 5 to 6 bms per day for 6 months. She is off her meds for the c.dif. No rectal bleeding. Last scope was in 2015.Plan:1. Colonoscopy + stool transplant for refractory c.dificile.2. Stop Xarelto.3. Informed consent. Functional Status Description No Information Available Mental Status Description No Information Available Referrals Description No Information Available
--- OUTSIDE RECORDS SUMMARY | 2020-09-10 12:15 | CCD ---
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 Active confirmed 835864840 Problem Clostridium difficile colitis A04.72 Active confirm ed 871482167 Problem Paroxysmal atrial fibrillation I48.0 Active confir med 698981577 Problem Diarrhea of presumed infectious origin R19.7 A ctive confirmed 47338117 Problem Elevated CPK R74.8 Active confirmed 0546181 01 Problem MSSA (methicillin susceptible Staphylococcus aureus) A49.01 Active confirmed 248774702 Problem longterm current use of insulin Z79.4 Active conf irmed 152211063 Problem Paresthesia of skin R20.2 Active confirmed 12052038 ALLERGIES Allergen (clinical drug ingredient) Drug/Non Drug Allergy do cumented on EMR Reaction Allergy Type Onset Date Status Codeine Phosphate([facility] Code:[address]-01) itch Drug Allergy Active Penicillin (For Allergies Use Only) Rash Drug Allerg y 04/19/2019 Active ENCOUNTERS from 1945 to 2020-09-07 Encounter Location Date Provider Diagnosis [id number] [place] [address] 04 Aug, 2020 Vinny Zapien Clostridium difficile colitis A04.72 ; M ultiple myeloma in remission C90.01 ; Paroxysmal atrial fibrillation I48.0 ; Type 2 diabetes mellitus without complications E11.9 and Periodontal disease K05.6 IMMUNIZATIONS Vaccine Route Administration Date Status Influenza (18 yrs & older) Flublok IM Intramuscular Apr 19 9 Administered SOCIAL HISTORY Tobacco Use: Social History Observation Description Date Details (start date - stop date) Never Smoker Sex Assigned At : Social History Observation Description Sex Assigned At Unknown Education: Question Answer Notes Level of Education: Finished College Language: Question Answer Notes Languages spoken: Greenlandic Hindu: Question Answer Notes Hindu 08 Rastafari Sexual Hx: Question Answer Notes Had sex in the last 12 months (vaginal, oral, or anal)? No Have you ever had an STD? No Alcohol Screening: Question Answer Notes Did you have a drink containing alcohol in the past year? No Points 0 Interpretation Negative Tobacco Use: Question Answer Notes Are you a: never smoker REASON FOR REFERRAL No Information VITAL SIGNS No information MEDICATIONS Medication SIG (Take, Route, Frequency, Duration) Notes Start Da te End Date Status Zofran 4 MG 1 tablet Orally bid as needed for 30 Days Active Lasix 40 MG 1 tablet Orally Once a day for 30 day(s) Active Lorazepam 1 MG 1 tab Oral bid prn Ac tive Digoxin 125 MCG as directed Orally A ctive Potassium Chloride Simona ER 20 MEQ 1 tab Oral twice daily Active Levemir FlexTouch 100 UNIT/ML 10 units Subcutaneous Daily Active Vancomycin HCl 125 MG 1 capsule Orally every 6 hrs Dec, Active Januvia 100 MG 1 tablet Orally Once a day Active Metformin HCl 500 MG 1 tablet with a meal Orally Once a day for 30 da y(s) Active Bisoprolol Fumarate 10 MG TAKE ONE TABLET BY MOUTH TWICE DAILY Oral Active Levothyroxine Sodium 75 MCG 1 tablet Oral Daily Active Xarelto 20 MG 1 tablet with food Orally Once a day Active Multivitamin Gummies Adult - as directed Orally Active Colesevelam HCl 3.75 GM MIX ONE PACKET IN FOUR OUNCE S OF WATER AND drink DAILY Oral for 30 Active Nystatin - as directed topically groin Twice a day for 30 Days Active Dificid 200 MG 1 tablet Orally bid for 14 Days Active Flecainide Acetate 50 MG TAKE TWO TABLETS BY MOUTH TWICE DAILY Oral Active Farxiga 5 MG TAKE ONE TABLET BY MOUTH EVERY MORNING Oral Active Morphine Sulfate ER 15 MG 1 capsule Orally twice a day and three times a day as needed Active PROCEDURES No Information RESULTS Component Value Reference Range Clostridium Difficile By PCR Reviewed date:09/03/2020 11:00:55 Interpretation: Performing Lab:[facility], [facility] [address] [facility] [address] , ,[place] [address] CLOSTRIDIUM DIFFICILE PCR NEGATIVE NEGATIVE NAP1 027 FOR CDIFF PCR PRESUMPTIVE NEGATIVE NEGATIVE REASON FOR VISIT 3 week MEDICAL (GENERAL) HISTORY Type Description Date Medical History acute discitis MSSA bacterem ia treated 1 year antibiotics done 02/2020 Medical History multiple myeloma and remission Medical History obesity Medical History insulin dependent diabetes Medical History hypertension Medical History atrial fibrillation 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 This is her 6th episode of Cdiff .She has failed oral vancomycin 14 days, 3 courses of Oral fidaxomicin with tapering and IV zinplava. She just finished 2 more weeks of dificid and was on tapering schedule with worsening symptoms at QOD dosing. She needs stool transplant from family donor if not available through [facility] due to Covid or family members. She did not receive second dose of zinplava because she has to pay the deductible over 3000$ 01/15/20 Cdiff treated with PO vancomycin x 2 weeks 03/11/20 Cdiff treated with dificid 04/02/20 cdiff Treated with dificid taper and IV zinplava 05/15/20 cdiff treated with dificid 07/17/20 Cdiff received 14 days of dificid wilth taper dificid. 08/30/2020 Restarted Dificid 200mg BID. Case DW Dr Burnett no stool transplant done since COVId , discussed option of family member as well. I called him today he will see patient on 09/20/2020 to discuss options. I have called Pharmacy to obtain [facility] stool specimen for FMT and have filled the forms needed for recurrent severe or life threatening cases. Yolanda clinical pharmacy manager was called to find out abouts tool transplant and has faxed paperwork needed. Daughter Hazel Sumner HCP also called to discuss care plan aand appts Aug, Multiple myeloma in remission (ICD-10 - C90.01) Aug, Paroxysmal atrial fibrillation (ICD-10 - I48.0) Aug, Type 2 diabetes mellitus without complications ( ICD-10 - E11.9) Aug, Periodontal disease (ICD-10 - K05.6) Had full mouth extraction , keflex prescibed 07/17/[address] Cisneros, had 1 day then had thrush PLAN OF TREATMENT Medication Medication Name Sig Start Date Stop Date Bisoprolol Fumarate 10 MG TAKE ONE TABLET BY MOUTH TWICE DAILY O ral Flecainide Acetate 50 MG TAKE TWO TABLETS BY MOUTH TWICE DAILY O ral Levemir FlexTouch 100 UNIT/ML 10 units Subcutaneous Daily Januvia 100 MG 1 tablet Orally Once a day Digoxin 125 MCG as directed Orally Farxiga 5 MG TAKE ONE TABLET BY MOUTH EVERY MORNING Oral Dificid 200 MG 1 tablet Orally bid for 14 Days Treatment Notes Assessment Notes Clinical Notes Clostridium difficile colitis Patient wa s advised to take probiotics twice a day and yogurt. This is her 6th episode of Cdiff .She has failed oral vancomycin 14 days, 3 courses of Oral fidaxomicin with tapering and IV zinplava.She just finished 2 more weeks of dificid and was on tapering schedule with worsening symptoms at QOD dosing. She needs stool transplant from family donor if not available through [facility] due to Covid or family members.She did not receive second dose of zinplava because she has to pay the deductible over 3000$01/15/20 Cdiff treated with PO vancomycin x 2 weeks03/11/20 Cdiff treated with dificid04/02/20 cdiff Treated with dificid taper and IV dxgpisyi85/20/20 cdiff treated with /22/20 Cdiff received 14 days of dificid wilth taper dificid.08/30/2020 Restarted Dificid 200mg BID.Case DW Dr Burnett no stool transplant done since COVId , discussed option of family member as well.I called him today he will see patient on 09/20/2020 to discuss options.I have called Pharmacy to obtain [facility] stool specimen for FMT and have filled the forms needed for recurrent severe or life threatening cases.Yolanda clinical pharmacy manager was called to find out abouts tool transplant and has faxed paperwork needed.Juju Sumner HCP also called to discuss care plan aand appts Periodontal disease Had full mouth extra ction , keflex prescibed 07/17/[address] Cisneros, had 1 day then had thrush Treatment Notes Test Name Order Date CT ABD & Pelvis with Contrast 2020-08-30 Next Appt Details 2 Weeks Reason: Insurance Providers Payer Name Payer Address Payer Phone Insured Name Patient Relati onship to Insured Coverage Start Date Coverage End Date [facility] FED[facility] [address] [address] [facility] [address] KARYNA MONGE
--- OUTSIDE RECORDS SUMMARY | 2020-09-10 12:16 | CCD ---
Author Author [facility] Organization [facility] Address Unknown Phone Unavailable Care Team Providers Care Post Office Manager Name Role Phone Vinny Zapien Unavailable PROBLEMS Type Condition ICD9-CM Code [id number] Code Onset Dates Condition S tatus SNOMED Code Notes Problem Type 2 diabetes mellitus without complications E11 .9 Active 017844233 Problem Multiple myeloma in remission C90.01 Active 94 454653 Problem Discitis thoracic region M46.44 Active 2447816 02 Problem Clostridium difficile colitis A04.72 Active 42 8987797 Problem Paroxysmal atrial fibrillation I48.0 Active 2 14303512 Problem Diarrhea of presumed infectious origin R19.7 A ctive 90133106 Problem Elevated CPK R74.8 Active 520687066 Problem MSSA (methicillin susceptible Staphylococcus aureus) A49.01 Active 584712414 Problem intermediate accountant current use of insulin Z79.4 Active 292709425 Problem Paresthesia of skin R20.2 Active 62718366 ALLERGIES Allergen (clinical drug ingredient) Drug/Non Drug Allergy do cumented on EMR Reaction Allergy Type Onset Date Status Codeine Phosphate([facility] Code:[address]-41) itch Drug Allergy Active Penicillin (For Allergies Use Only) Rash Drug Allerg y 04/19/2019 Active ENCOUNTERS from 1945 to 2020-07-30 Encounter Location Date Provider Diagnosis [address] [address] Jun, Vinny Zapien IMMUNIZATIONS Vaccine Route Administration Date Status Influenza (18 yrs & older) Flublok IM Intramuscular Apr 19 9 Administered SOCIAL HISTORY Tobacco Use: Social History Observation Description Date Details (start date - stop date) Never Smoker Sex Assigned At : Social History Observation Description Sex Assigned At Unknown Education: Question Answer Notes Level of Education: Finished College Language: Question Answer Notes Languages spoken: Northern Irish Tenriism: Question Answer Notes Tenriism 08 Advent Sexual Hx: Question Answer Notes Had sex [...] Notes Start Da te End Date Status Multivitamin Gummies Adult - as directed Orally Active Morphine Sulfate ER 15 MG 1 capsule Orally twice a day and three times a day as needed Active Digoxin 125 MCG as directed Orally A ctive Vancomycin HCl 125 MG 1 capsule Orally every 6 hrs Dec, Active Flecainide Acetate 50 MG TAKE TWO TABLETS BY MOUTH TWICE DAILY Oral Active Colesevelam HCl 3.75 GM MIX ONE PACKET IN FOUR OUNCE S OF WATER AND drink DAILY Oral for 30 Active Bisoprolol Fumarate 10 MG TAKE ONE TABLET BY MOUTH TWICE DAILY Oral Active Lasix 40 MG 1 tablet Orally Once a day for 30 day(s) Active Potassium Chloride Simona ER 20 MEQ 1 tab Oral twice daily Active Dificid 200 MG 1 tablet Orally Q3days for 35 Days Active Xarelto 20 MG 1 tablet with food Orally Once a day Active Farxiga 5 MG TAKE ONE TABLET BY MOUTH EVERY MORNING Oral Active Januvia 100 MG 1 tablet Orally Once a day Active Nystatin - as directed topically groin Twice a day for 30 Days Active Lorazepam 1 MG 1 tab Oral bid prn Ac tive Levemir FlexTouch 100 UNIT/ML 10 units Subcutaneous Daily Active Dificid 200 MG 1 tablet Orally Twice a day for 14 days Jun, Active Levothyroxine Sodium 75 MCG 1 tablet Oral Daily Active Zofran 4 MG 1 tablet Orally bid as needed for 30 Days Active Metformin HCl 500 MG 1 tablet with a meal Orally Once a day for 30 da y(s) Active PROCEDURES No Information RESULTS No Results REASON FOR VISIT No Information MEDICAL (GENERAL) HISTORY Type Description Date Medical History acute discitis Surgical History lobectomy Surgical History chemo port Surgical History pacemaker Goals Section No Information Health Concerns No Information MEDICAL EQUIPMENT No Information MENTAL STATUS No Information FUNCTIONAL STATUS No Information ASSESSMENTS No Information PLAN OF TREATMENT Medication Medication Name Sig Start Date Stop Date Januvia 100 MG 1 tablet Orally Once a day Dificid 200 MG 1 tablet Orally Q3days for 35 Days Levemir FlexTouch 100 UNIT/ML 10 units Subcutaneous Daily Farxiga 5 MG TAKE ONE TABLET BY MOUTH EVERY MORNING Oral Digoxin 125 MCG as directed Orally Flecainide Acetate 50 MG TAKE TWO TABLETS BY MOUTH TWICE DAILY O ral Dificid 200 MG 1 tablet Orally Twice a day for 14 days Jun, Bisoprolol Fumarate 10 MG TAKE ONE TABLET BY MOUTH TWICE DAILY O ral Next Appt Details Provider Name:Vinny Zapien, 2020-07-27 4 11:30:00 AM, [address] [place], [address], Insurance Providers Payer Name Payer Address Payer Phone Insured Name Patient Relati onship to Insured Coverage Start Date Coverage End Date [facility] [address] [address] [facility] [address] KARYNA MONGE
--- OUTSIDE RECORDS SUMMARY | 2020-09-10 12:16 | CCD | Continuity of Care Document ---
Author Author Javier BURNETT M.D. Organization Unknown Address [address] [place] [address] Phone [phone] Care Team Providers Care Dishwasher Name Role Phone Simba Dotson M.D. AUTM [phone] Problems Active Problems Provider Date Diarrhea Godwin [...] Qnty Indications Ordering Provide r Date Sutab [phone] Tablets as directed 1box Godwin Burnett M.D. [...] Tablets Simba Dotson M.D. Xarelto 20mg Tablets Goodman,Simba Quach M.D. Immunizations Description No Information Available [...] Medical Devices Description No Information Available Encounters Description No Information Available Assessments Date Code Description Provider 09/04/2020 A04.71 [...]
--- OUTSIDE RECORDS SUMMARY | 2020-09-10 12:16 | CCD ---
Author Author [facility] Organization [facility] Address Unknown Phone Unavailable Care Team Providers Care Dental Ceramist Helper Name Role Phone Vinny Zapien Unavailable PROBLEMS Type Condition ICD9-CM Code [id number] Code Onset Dates Condition S tatus SNOMED Code Notes Problem Type 2 diabetes mellitus without complications E11 .9 Active 589172106 Problem Multiple myeloma in remission C90.01 Active 94 685485 Problem Discitis thoracic region M46.44 Active 6108093 02 Problem Clostridium difficile colitis A04.72 Active 42 2646314 Problem Paroxysmal atrial fibrillation I48.0 Active 2 47240336 Problem Diarrhea of presumed infectious origin R19.7 A ctive 84903958 Problem Elevated CPK R74.8 Active 501525861 Problem MSSA (methicillin susceptible Staphylococcus aureus) A49.01 Active 571904979 Problem manager terminal current use of insulin Z79.4 Active 413827487 Problem Paresthesia of skin R20.2 Active 40617993 ALLERGIES Allergen (clinical drug ingredient) Drug/Non Drug Allergy do cumented on EMR Reaction Allergy Type Onset Date Status Codeine Phosphate([facility] Code:[address]-83) itch Drug Allergy Active Penicillin (For Allergies Use Only) Rash Drug Allerg y 04/19/2019 Active ENCOUNTERS from 1945 to 2020-07-30 Encounter Location Date Provider Diagnosis [address] [address] Jun, Vinny Zapien Clostridium difficile colitis A04.72 ; D iscitis thoracic region M46.44 ; MSSA (methicillin susceptible Staphylococcus aureus) A49.01 ; Multiple myeloma in remission C90.01 ; Paroxysmal atrial [...] College Language: Question Answer Notes Languages spoken: Belarusian Christian: Question Answer Notes Christian 08 Orthodox Sexual Hx: Question Answer Notes Had sex [...] da y(s) Active PROCEDURES No Information RESULTS Component Value Reference Range Clostridium Difficile By PCR Reviewed date:07/24/2020 08:32:02 Interpretation: Performing Lab:[facility], [facility] [address] [facility] [address] , ,[place] [address] CLOSTRIDIUM DIFFICILE PCR POSITIVE NEGATIVE NAP1 027 FOR CDIFF PCR PRESUMPTIVE NEGATIVE NEGATIVE REASON FOR VISIT [phone] C-diff MEDICAL (GENERAL) HISTORY Type Description Date Medical History acute discitis Surgical History lobectomy Surgical History chemo port Surgical History pacemaker Goals Section No Information Health Concerns No Information MEDICAL EQUIPMENT No Information MENTAL STATUS No Information FUNCTIONAL STATUS No Information ASSESSMENTS Encounter Date Diagnosis Assessment Notes Treatment Notes Treatm ent Clinical Notes Jun, Clostridium difficile colitis (ICD-10 - A04.72) Patient was advised to take probiotics twice a day any yogurt. She has failed oral vancomycin ,14 days Oral fidaxomicin and IV zinplava. Patient has soft stools 3 bowel movements a day on tapering Dificid has 1 week left 3 pills. She may need stool transplant from family donor if not available through [facility] due to Covid . She is doing better. Had flareup last week of GI illness with fever could have been viral , if recurrent diarrhea off dificid will bring another specimen. will flower buncher or picker the kit. Labs reviewed on 05/16/20 white count 11.8 hemoglobin 14 hematocrit 43.3 platelets 198 liver profile normal kidney function normal Jun, Discitis thoracic region (ICD-10 - M46.44) Off duricef mid February 2020. She has minimal back pain takes Advil 2 tablets once a day [id number]. Jun, MSSA (methicillin susceptibl e Staphylococcus aureus) (ICD-10 - A49.01) Jun, Multiple myeloma in remission (ICD-10 - C90.01) Jun, Paroxysmal atrial fibrillation (ICD-10 - I48.0) Jun, Type 2 diabetes mellitus without complications ( ICD-10 - E11.9) Jun, Periodontal disease (ICD-10 - K05.6) Had full mouth extraction , keflex prescibed 02/[address] Cisneros, no reurrent issues has dentures now PLAN OF TREATMENT Medication Medication Name Sig [...] TABLET BY MOUTH TWICE DAILY O ral Treatment Notes Assessment Notes Clinical Notes Clostridium difficile colitis Patient wa s advised to take probiotics twice a day any yogurt.She has failed oral vancomycin ,14 days Oral fidaxomicin and IV zinplava. Patient has soft stools 3 bowel movements a day on tapering Dificid has 1 week left 3 pills. She may need stool transplant from family donor if not available through [facility] due to Covid . She is doing better.Had flareup last week of GI illness with fever could have been viral , if recurrent diarrhea off dificid will bring another specimen. will flower buncher or picker the kit.Labs reviewed on 05/16/20 white count 11.8 hemoglobin 14 hematocrit 43.3 platelets 198 liver profile normal kidney function normal Discitis thoracic region Off duricef mi d February 2020. She has minimal back pain takes Advil 2 tablets once a day [id number]. Periodontal disease Had full mouth extra ction , keflex prescibed 02/[address] Cisneros, no reurrent issues has dentures now Next Appt Details 3 Weeks Reason: Provider Name:Vinny Zapien, 2020-07- 4 11:30:00 AM, [address] [place], [address], Insurance Providers Payer Name Payer Address Payer Phone Insured Name Patient Relati onship to Insured Coverage Start Date Coverage End Date [facility] FEDERAL [address] [address] [facility] [id number] KARYNA MONGE
--- OUTSIDE RECORDS SUMMARY | 2020-09-10 12:16 | CCD ---
Author Author [facility] Organization [facility] Address Unknown Phone Unavailable Care Team Providers Care Acupuncturist Name Role Phone Vinny Zapien Unavailable PROBLEMS Type Condition ICD9-CM Code [id number] Code Onset Dates Condition S tatus SNOMED Code Notes Problem Type 2 diabetes mellitus without complications E11 .9 Active 959821625 Problem Multiple myeloma in remission C90.01 Active 94 343319 Problem Discitis thoracic region M46.44 Active 8815985 02 Problem Clostridium difficile colitis A04.72 Active 42 9731426 Problem Paroxysmal atrial fibrillation I48.0 Active 2 60998101 Problem Diarrhea of presumed infectious origin R19.7 A ctive 09844906 Problem Elevated CPK R74.8 Active 744119921 Problem MSSA (methicillin susceptible Staphylococcus aureus) A49.01 Active 379841772 Problem anatomic pathology assistant current use of insulin Z79.4 Active 502586038 Problem Paresthesia of skin R20.2 Active 45769830 ALLERGIES Allergen (clinical drug ingredient) Drug/Non Drug Allergy do cumented on EMR Reaction Allergy Type Onset Date Status Codeine Phosphate([facility] Code:[address]-94) itch Drug Allergy Active Penicillin (For Allergies Use Only) Rash Drug Allerg y 04/19/2019 Active ENCOUNTERS from 1945 to 2020-07-17 Encounter Location Date Provider Diagnosis [address] [address] Jun, Vinny Zapien IMMUNIZATIONS Vaccine Route Administration Date Status Influenza (18 yrs & older) Flublok IM Intramuscular Apr 19 201 9 Administered SOCIAL HISTORY Tobacco Use: Social History Observation Description Date Details (start date - stop date) Never Smoker Sex Assigned At : Social History Observation Description Sex Assigned At Unknown Education: Question Answer Notes Level of Education: Finished College Language: Question Answer Notes Languages spoken: [place] Korean Restoration: Question Answer Notes Restoration 08 Baptism Sexual Hx: Question Answer Notes Had sex [...] 100 UNIT/ML 10 units Subcutaneous Daily Active Levothyroxine Sodium 75 MCG 1 tablet Oral Daily Active Zofran 4 MG 1 tablet Orally bid as needed for 30 Days Active Metformin HCl 500 MG 1 tablet with a meal Orally Once a day for 30 da y(s) Active PROCEDURES No Information RESULTS No Results REASON FOR VISIT stool sample order MEDICAL (GENERAL) HISTORY Type Description Date Medical [...] TABLETS BY MOUTH TWICE DAILY O ral Bisoprolol Fumarate 10 MG TAKE ONE TABLET BY MOUTH TWICE DAILY O ral Insurance Providers Payer Name Payer Address Payer Phone Insured Name Patient Relati onship to Insured Coverage Start Date Coverage End Date [facility] [address] [address] [facility] [address] KARYNA MONGE
--- OUTSIDE RECORDS SUMMARY | 2020-09-10 12:16 | CCD ---
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 Active 0670122 02 Problem Clostridium difficile colitis A04.72 Active 42 5547959 Problem Paroxysmal atrial fibrillation I48.0 Active 2 82070509 Problem Diarrhea of presumed infectious origin R19.7 A ctive 36782756 Problem Elevated CPK R74.8 Active 957323009 Problem MSSA (methicillin susceptible Staphylococcus aureus) A49.01 Active 723191011 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 036415246 Problem Paresthesia of skin R20.2 Active 36789069 ALLERGIES Allergen (clinical drug ingredient) Drug/Non Drug Allergy do cumented on EMR Reaction Allergy Type Onset Date Status Codeine Phosphate([facility] Code:[address]-28) itch Drug Allergy Active Penicillin (For Allergies Use Only) Rash Drug Allerg y 04/19/2019 Active ENCOUNTERS from 1945 to 2020-07-04 Encounter Location Date Provider Diagnosis [address] [address] Jun, Vinny Zapien IMMUNIZATIONS Vaccine Route Administration [...] College Language: Question Answer Notes Languages spoken: Panamanian Alevism: Question Answer Notes Alevism 08 Yazidism Sexual Hx: Question Answer Notes Had sex [...] Notes Start Da te End Date Status Januvia 100 MG 1 tablet Orally Once a day Active Vancomycin HCl 125 MG 1 capsule Orally every 6 hrs Dec, Active Multivitamin Gummies Adult - as directed Orally Active Digoxin 125 MCG as directed Orally A ctive Potassium Chloride Simona ER 20 MEQ 1 tab Oral twice daily Active Dificid 200 MG 1 tablet Orally Twice a day for 10 days then daily for 1 week,QOD 1 week , q3days for 2 weeks for 35 Days Apr, Active Metformin HCl 500 MG 1 tablet with a meal Orally Once a day for 30 da y(s) Active Xarelto 20 MG 1 tablet with food Orally Once a day Active Colesevelam HCl 3.75 GM MIX ONE PACKET IN FOUR OUNCE S OF WATER AND drink DAILY Oral for 30 Active Flecainide Acetate 50 MG TAKE TWO TABLETS BY MOUTH TWICE DAILY Oral Active Farxiga 5 MG TAKE ONE TABLET BY MOUTH EVERY MORNING Oral Active Nystatin - as directed topically groin Twice a day for 30 Days Active Levothyroxine Sodium 75 MCG 1 tablet Oral Daily Active Levemir FlexTouch 100 UNIT/ML 10 units Subcutaneous Daily Active Morphine Sulfate ER 15 MG 1 capsule Orally twice a day and three times a day as needed Active Zofran 4 MG 1 tablet Orally bid as needed for 30 Days Active Bisoprolol Fumarate 10 MG TAKE ONE TABLET BY MOUTH TWICE DAILY Oral Active Lasix 40 MG 1 tablet Orally Once a day for 30 day(s) Active Lorazepam 1 MG 1 tab Oral bid prn Ac tive PROCEDURES No Information RESULTS No Results REASON [...] Medication Name Sig Start Date Stop Date Flecainide Acetate 50 MG TAKE TWO TABLETS BY MOUTH TWICE DAILY O ral Bisoprolol Fumarate 10 MG TAKE ONE TABLET BY MOUTH TWICE DAILY O ral Digoxin 125 MCG as directed Orally Dificid 200 MG 1 tablet Orally Twice a day for 10 days then daily for 1 week,QOD 1 week , q3days for 2 weeks for 35 Days Apr, Levemir FlexTouch 100 UNIT/ML 10 units Subcutaneous Daily Farxiga 5 MG TAKE ONE TABLET BY MOUTH EVERY MORNING Oral Januvia 100 MG 1 tablet Orally Once a day Next Appt Details Provider Name:Vinny Hyde Curry, 2020-06- 4 10:45:00 AM, [address] [place], [address], Insurance Providers Payer Name Payer Address Payer Phone Insured Name Patient Relati onship to Insured Coverage Start Date Coverage End Date [facility] [address] [address] [facility] [address] KARYNA MONGE
--- OUTSIDE RECORDS SUMMARY | 2020-09-10 12:16 | CCD ---
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 Active 1743192 02 Problem Clostridium difficile colitis A04.72 Active 42 6434900 Problem Paroxysmal atrial fibrillation I48.0 Active 2 04922166 Problem Diarrhea of presumed infectious origin R19.7 A ctive 98387603 Problem Elevated CPK R74.8 Active 541364316 Problem MSSA (methicillin susceptible Staphylococcus aureus) A49.01 Active 018058345 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 Active 345288010 Problem Paresthesia of skin R20.2 Active 30920654 ALLERGIES Allergen (clinical drug ingredient) Drug/Non Drug Allergy do cumented on EMR Reaction Allergy Type Onset Date Status Codeine Phosphate([facility] Code:[address]-08) itch Drug Allergy Active Penicillin (For Allergies Use Only) Rash Drug Allerg y 04/19/2019 Active ENCOUNTERS from 1945 to 2020-07-10 Encounter Location Date Provider Diagnosis [facility] [id number] [place] [id number] Jun, Vinny Zapien IMMUNIZATIONS Vaccine Route Administration [...] College Language: Question Answer Notes Languages spoken: Lithuanian Episcopalian: Question Answer Notes Episcopalian 08 Alevism Sexual Hx: Question Answer Notes Had sex [...] Information RESULTS No Results REASON FOR VISIT change to telemed? MEDICAL (GENERAL) HISTORY Type Description Date Medical [...] Insured Coverage Start Date Coverage End Date [facility] [address] [address] [facility] [address] KARYNA MONGE
--- OUTSIDE RECORDS SUMMARY | 2020-09-10 12:16 | CCD | Continuity of Care Document ---
Author Author Javier Dotson MD Organization Unknown Address [address] [facility] [address] [place] [address] Phone [phone] Care Team Providers Care Clerk Name Role Phone Jhon Louis DO AUTM [phone] Simba Dotson JR, MD AUTM Unavailable Scar Bynum MD AUTM [phone] Problems Active Problems Provider Date Disorder of [...] Tablet Take One Tablet By Mouth @8Am 90barbarabs Simba Dotson MD 11/23/2019 Vitamin D-1000 Maximum Strength 25mcg (1000 Ut) Tablets 1 by mouth every day 30tabs Shaina Sparks 10/03/2019 Unifine Pentips Plus 31G X 5 mm Mi sc Use Daily as Directed 100units Simba Dotson MD 09/02/19 20 Vitamin D3 25mcg Tablet take one tablet by mouth @8am 90barbarabs Simba Dotson MD 07/08/2019 Calcium 600/Vitamin D [id number]-Ozjp Chewtabs 1 by mouth every day 90units [...] as needed 80gm Simba Dotson MD 09/25/2017 Onetouch Finepoint Lancets Misc test twice a day e11.9 200units Simba Dotson MD 08/26/19 18 Onetouch Ultra 2 w/Device Kit test twice a day and as directed e11.4 1units Simba Dotson MD 08/03/2017 [email or web address] Ultra Blue Strips use twice daily to check blood sugar dx e11.9 200units Simba condon MD 08/03/2017 Levemir Flextouch 10 0Unit/ML Solution Pen-Inject [id number] Units Under The Skin Daily 30ml Luis rafiq Dotson MD 07/05/2017 Xarelto 20mg [...] CPT Code Status Date Vaccine Lot # 36078 Given 04/30/2018 Influenza Virus Vaccine, Quadrivalent (Cciiv4), Derived From Cell [id number] Q2037 Given 05/14/2016 Fluvirin Virus Vaccine 10623 01 30848 Given 03/11/2016 Tetanus/Diptheria(Td)Toxoids Preservative Free Q2037 Given 05/03/2015 Fluvirin Virus Vaccine 53116 01 Q2037 Given 04/24/2014 Fluvirin Virus Vaccine 52514 21 Q2037 Given 05/27/2013 Fluvirin Virus Vaccine 39230 Given 11/17/2012 Zoster Vaccine Q2037 Given 04/19/2012 Fluvirin Virus Vaccine Vital Signs Date Vital Result Comment 07/03/2020 11:09am BP Systolic 143 mmHg BP Diastolic 78 mmHg Heart Rate 72 /min Height 61 inches 5'1" Weight 185.00 lb BMI (Body Mass Index) 35.0 kg/m2 03/02/2020 9:16am BP Systolic 132 mmHg BP Diastolic 76 mmHg Heart Rate 72 /min Height 61 inches 5'1" Weight 174.00 lb BMI (Body Mass Index) 32.9 kg/m2 Results Test Acquired Date Facility Test Result H/L Range Note Laboratory test finding 07/03/2020 [place] [employer] [employer] jocelyn molina [employer]: [place] [address] [phone] A1c <pending> Laboratory test finding 07/03/2020 [place] [employer] jocelyn molina [employer]: [place] [address] [phone] TSH <pending> Comprehensive Metabolic Profil 05/16/2020 [facility] [address] [place] [address] [phone] Glucose, Fasting 189 mg/dL High 70-100 Blood Urea Nitrogen 14 mg/dL Normal 7-18 Creatinine For GFR 1.02 mg/dL Normal 0.55-1.30 Glomerular Filtration Rate 56.6 Normal >39 1 Sodium Level 136 mEq/L Normal 136-145 Potassium [...] 0.9 Low 1.2-2.2 CBC With Differential 05/16/2020 [place] [address] [place] [address] [phone] White Blood Count 11.8 10 High 4.0-10.0 [...] 36.0-66.0 Lymph % 13.8 % Low 24.0-44.0 Bartholomew % 6.6 % High 0.0-5.0 Eos % 0.6 % Normal 0.0-3.0 Baso % 0.5 % Normal 0.0-1.0 Immature Granulocyte % 1.8 % Normal 0-3.0 Nucleated Red Blood Cell % 0.0 % Normal 0-0 Neutrophils # 9.1 10 High 1.5-8.5 Lymph # 1.6 10 Normal 1.5-5.0 Bartholomew # 0.8 10 Normal 0.0-0.8 Eos # 0.1 10 Normal 0.0-0.5 Baso # 0.1 10 Normal 0.0-0.2 Immunoglobulin G,A,M 05/16/2020 [facility] C enter [address] [place] [address] [phone] Immunoglobulin A 178.0 mg/dL Normal 70-400 Immunoglobulin G 633 mg/dL Low 681-1648 Immunoglobulin M 35.9 mg/dL Low 40-230 Immunotyping (Immunofixation) Serum (If 05/16/[address] [id number] [phone] It Serum Interpretation SEE COMMENT Normal 2 Its Pathologist Review REV'D BY O ADJAP <SEE NOTE> Normal 3 Serum Protein Electrophoresis 05/16/[address] [address] [phone] Albumin % 59.5 % Normal 55.8-66.1 Afdwy-8-Btnzqvmc % 5.4 % High 2.9-4.9 Fhlml-3-Bkszmkzjw % 11.6 % Normal 7.1-11.8 Yjal-2-Mwrmfazsj % 7.3 % High 4.7-7.2 Tidm-8-Ctonyppqj % 6.3 % Normal 3.2-6.5 Gamma Globulin % 9.9 % Low 11.1-18.8 Albumin 3.81 GM/DL Normal 3.29-5.55 Ylieu-0-Vpjphmgnx 0.35 GM/DL Normal 0.17-0.41 Nhsrx-2-Oircgkdyi 0.74 GM/DL Normal 0.42-0.99 Qigg-7-Smvkanoye 0.47 GM/DL Normal 0.28-0.60 Twiv-2-Wqrklnuuy 0.40 GM/DL Normal 0.19-0.55 Gamma Globulins 0.63 GM/DL Low 0.65-1.58 Total Protein 6.4 GM/DL Normal 6.4-8.2 Spep Interpretation SEE COMMENT Normal 4 Spep Pathologist Review REV'D BY O ADJAP <SEE NOTE> Normal 5 Serum Protein Electrophoresis 03/07/[address] [id number] [phone] Albumin % TNP % Normal 55.8-66.1 Qnnny-0-Xpixjbai % TNP % Normal 2.9-4.9 Qyvnj-2-Yuezbjcbe % TNP % Normal 7.1-11.8 Objc-6-Aoghsvxbv % TNP % Normal 4.7-7.2 Tsuu-4-Sodpiqsuv % TNP % Normal 3.2-6.5 Gamma Globulin % TNP % Normal 11.1-18.8 Albumin TNP GM/DL Normal 3.29-5.55 6 Clcgh-0-Rediccbgn TNP GM/DL Normal 0.17-0.41 Srgwu-5-Eloljnlnb TNP GM/DL Normal 0.42-0.99 Czzq-8-Ciihmrbkk TNP GM/DL Normal 0.28-0.60 Xscz-9-Gevcwbbnc TNP GM/DL Normal 0.19-0.55 Gamma Globulins TNP GM/DL Normal 0.65-1.58 Total Protein 6.5 GM/DL Normal 6.4-8.2 7 Spep Interpretation TNP Normal Spep Pathologist Review TNP Normal Immunoglobulin G,A,M 03/07/2020 [facility] enter [address] [place] [address] [id number] [phone] Immunoglobulin A 162.0 mg/dL Normal 70-400 Immunoglobulin G 628 mg/dL Low 681-1648 Immunoglobulin M 35.5 mg/dL Low 40-230 Comprehensive Metabolic Profil 03/07/[address] [id number] [phone] Glucose, Fasting 216 mg/dL High 70-100 Blood Urea Nitrogen 13 mg/dL Normal 7-18 Creatinine For GFR 0.98 mg/dL Normal 0.55-1.30 Glomerular Filtration Rate 59.4 Normal >39 8 Sodium Level 142 mEq/L Normal 136-145 Potassium Serum 3.9 mEq/L Normal 3.5-5.1 Chloride Level 107 mEq/L Normal 98-107 Carbon Dioxide Level 26 mEq/L Normal 21-32 Anion Gap 9 mEq/L Normal 8-16 Calcium Level 9.0 mg/dL Normal 8.8-10.2 Ast/Sgot 13 U/L Normal 7-37 Alt/SGPT 22 U/L Normal 12-78 Alkaline Phosphatase 112 U/L Normal 45-117 Bilirubin,Total 0.5 mg/dL Normal 0.2-1.0 Total Protein 6.5 GM/DL Normal 6.4-8.2 Albumin 3.3 GM/DL Normal 3.2-5.2 Albumin/Globulin Ratio 1.0 Low 1.2-2.2 CBC With Differential 03/07/[address] [place], [place] [id number] [phone] White Blood Count 12.4 10 High 4.0-10.0 Red Blood Count 4.18 10 Normal 4.00-5.40 Hemoglobin 13.5 g/dL Normal 12.0-15.5 Hematocrit 41.3 % Normal 36.0-47.0 Mean Corpuscular Volume 98.8 fl High 80.0-96.0 Mean Corpuscular Hemoglobin 32.3 pg Normal 27.0-33.0 Mean Corpuscular HGB Conc 32.7 g/dL Normal 32.0-36.5 Red Cell Distribution Width 15.5 % High 11.5-14.5 Platelet Count, Automated 229 10 Normal 150-450 Neutrophils % 80.3 % High 36.0-66.0 Lymph % 11.4 % Low 24.0-44.0 Bartholomew % 6.1 % High 0.0-5.0 Eos % 0.7 % Normal 0.0-3.0 Baso % 0.2 % Normal 0.0-1.0 Immature Granulocyte % 1.3 % Normal 0-3.0 Nucleated Red Blood Cell % 0.0 % Normal 0-0 Neutrophils # 9.9 10 High 1.5-8.5 Lymph # 1.4 10 Low 1.5-5.0 Bartholomew # 0.8 10 Normal 0.0-0.8 Eos # 0.1 10 Normal 0.0-0.5 Baso # 0.0 10 Normal 0.0-0.2 Free [place] & Lambda LT Chains 03/07/2020 [place] [id number] [phone] Free [place] Light Chains Serum SEE SEPARATE REP < SEE NOTE> Normal 9 Free Lambda Light Chains Serum SEE SEPARATE REP <SEE NOTE> Normal 10 [place]/Lambda Ratio Serum SEE SEPARATE REP <SEE NOTE> Normal 11 Complete Blood Count 03/02/2020 [place] [employer] s, pc [employer]: [place] [address] [phone] WBC 15.0 x10*3/UL High 4.1 - 10.9 12 RBC 4.58 x10*6/UL 4.20 - 6.30 Hemoglobin 14.4 g/dL 12.0 - 18.0 Hematocrit 41.7 % 37.0 - 51.0 MCV 90.9 fL 80.0 - 97.0 MCH 31.4 pg 26.0 - 32.0 MCHC 34.6 g/dL 31.0 - 38.0 RDW 14.5 % High 11.6 - 13.7 PLT 260 x10*3/UL 140 - 440 MPV 7.4 FL Low 7.8 - 11.0 Lymph % 17.1 % 10.0 - 58.5 Mid % 4.6 % 1.7 - 9.3 Neut % 78.3 % 37.0 - 92.0 Lymph # 2.5 x10*3/UL 0.6 - 4.1 Mid # 0.8 x10*3/UL High 0.1 - 0.6 Neut # 11.7 x10*3/UL High 2.0 - 7.8 A1c 03/02/2020 [facility] , [employer]: [place] [address] [phone] Hba1c 6.9 g/dL High 4.8 - 5.6 13 Est Avg Glucose 151 mg/dL High 60 - 110 Comprehensive Chem Profile 03/02/2020 [facility], [employer]: [place] [address] [phone] Glucose 147 mg/dL High 74 - 99 14 BUN 20 mg/dL High 7 - 18 Creatinine 1.3 mg/dL 0.6 - 1.3 Sodium 138 mEq/L 136 - 145 Potassium 4.5 mEq/L 3.5 - 5.1 Chloride 99 mEq/L 98 - 107 Carbon Dioxide 29 mEq/L 21 - 32 Calcium 10.9 mg/dL High 8.5 - 10.1 15 Alk. Phosphatase 111 mg/dL 46 - 116 Total Bilirubin 0.5 mg/dL 0.2 - 1.0 Ast (Sgot) 14 U/L Low 15 - 37 Alt (SGPT) 29 U/L 12 - 78 Albumin 3.5 g/dL 3.4 - 5.0 Total Protein 7.2 g/dL 6.4 - 8.2 A/G Ratio 0.95 CALC Low 1.00 - 1.90 GFR 40 mL/min Low >60 GFR 49 mL/min Low >60 16 Laboratory test finding 03/02/2020 [place] [employer] jocelyn molina [employer]: [place] [address] [phone] Thyroid Stimulating Hormone 3.89 uIU/mL High 0.3 6 - 3.74 CBC With Differential 02/06/[address] [address] [phone] White Blood Count 13.4 10 High 4.0-10.0 Red Blood Count 4.68 10 Normal 4.00-5.40 Hemoglobin 14.3 g/dL Normal 12.0-15.5 Hematocrit 44.5 % Normal 36.0-47.0 Mean Corpuscular Volume 95.1 fl Normal 80.0-96.0 Mean Corpuscular Hemoglobin 30.6 pg Normal 27.0-33.0 Mean Corpuscular HGB Conc 32.1 g/dL Normal 32.0-36.5 Red Cell Distribution Width 14.9 % High 11.5-14.5 Platelet Count, Automated 214 10 Normal 150-450 Neutrophils % 79.0 % High 36.0-66.0 Lymph % 12.8 % Low 24.0-44.0 Bartholomew % 5.8 % High 0.0-5.0 Eos % 0.3 % Normal 0.0-3.0 Baso % 0.4 % Normal 0.0-1.0 Immature Granulocyte % 1.7 % Normal 0-3.0 Nucleated Red Blood Cell % 0.0 % Normal 0-0 Neutrophils # 10.6 10 High 1.5-8.5 Lymph # 1.7 10 Normal 1.5-5.0 Bartholomew # 0.8 10 Normal 0.0-0.8 Eos # 0.0 10 Normal 0.0-0.5 Baso # 0.1 10 Normal 0.0-0.2 Free [place] & Lambda LT Chains 02/06/[address] [address] [phone] Free [place] Light Chains Serum 14.3 mg/L Normal 3. 3-19.4 Free Lambda Light Chains Serum 12.8 mg/L Normal 5.7-26.3 [place]/Lambda Ratio Serum 1.12 Normal 0.26-1.65 17 Comprehensive Metabolic Profil 02/06/2020 [facility] [address] [place], [place] [id number] [phone] Glucose, Fasting 185 mg/dL High 70-100 Blood Urea Nitrogen 14 mg/dL Normal 7-18 Creatinine For GFR 0.98 mg/dL Normal 0.55-1.30 Glomerular Filtration Rate 59.4 Normal >39 1 8 Sodium Level 140 mEq/L Normal 136-145 Potassium Serum 4.2 mEq/L Normal 3.5-5.1 Chloride Level 102 mEq/L Normal 98-107 Carbon Dioxide Level 28 mEq/L Normal 21-32 Anion Gap 10 mEq/L Normal 8-16 Calcium Level 10.5 mg/dL High 8.8-10.2 Ast/Sgot 19 U/L Normal 7-37 Alt/SGPT 30 U/L Normal 12-78 Alkaline Phosphatase 117 U/L Normal 45-117 Bilirubin,Total 0.5 mg/dL Normal 0.2-1.0 Total Protein 6.7 GM/DL Normal 6.4-8.2 Albumin 3.4 GM/DL Normal 3.2-5.2 Albumin/Globulin Ratio 1.0 Low 1.2-2.2 Immunoglobulin G,A,M 02/06/2020 [facility] enter [address] [place], [place] [id number] [phone] Immunoglobulin A 161.0 mg/dL Normal 70-400 Immunoglobulin G 626 mg/dL Low 681-1648 Immunoglobulin M 31.9 mg/dL Low 40-230 Serum Protein Electrophoresis 02/06/[address] [id number] [phone] Albumin % 58.9 % Normal 55.8-66.1 Zzikq-7-Niqnupii % 6.1 % High 2.9-4.9 Tuuuq-5-Zhopeeovz % 12.8 % High 7.1-11.8 Lqug-8-Pemuczqhf % 7.0 % Normal 4.7-7.2 Jyky-9-Iftamcaic % 6.2 % Normal 3.2-6.5 Gamma Globulin % 9.0 % Low 11.1-18.8 Albumin 3.95 GM/DL Normal 3.29-5.55 Qwumg-5-Cheqcniiu 0.41 GM/DL Normal 0.17-0.41 Frtfg-1-Uaqmjecfd 0.86 GM/DL Normal 0.42-0.99 Qesg-6-Wauhzgxnv 0.47 GM/DL Normal 0.28-0.60 Iejg-5-Usgiavxmq 0.42 GM/DL Normal 0.19-0.55 Gamma Globulins 0.60 GM/DL Low 0.65-1.58 Total Protein 6.7 GM/DL Normal 6.4-8.2 Spep Interpretation SEE COMMENT Normal 19 Spep Pathologist Review REV'D BY Mike HENDERSON <SEE NOTE> Normal 20 1 Units are mL/min/1.73 m2 Chronic Kidney Disease Staging per NKF: Stage I & II GFR >=60 Normal to Mildly Decreased Stage III GFR 30-59 Moderately Decreased Stage IV GFR 15-29 Severely Decreased Stage V GFR <15 Very Little GFR Left ESRD GFR <15 on FINAL INSPECTOR PAPER 2 NO MONOCLONAL BANDS NOTED. 3 REV'D BY Freya NELSON [address] SERUM AND URINE IMMUNOTYPING. 5 REV'D BY Freya NELSON 6 Test not performed. Please resubmit with new order and sample. 7 --- 05/06/20 0648 --- TOTAL PROTEIN previously reported as: Test not performed GM/DL 8 Units are mL/min/1.73 m2 Chronic Kidney Disease Staging per NKF: Stage I & II GFR >=60 Normal to Mildly Decreased Stage III GFR 30-59 Moderately Decreased Stage IV GFR 15-29 Severely Decreased Stage V GFR <15 Very Little GFR Left ESRD GFR <15 on FINAL INSPECTOR PAPER 9 SEE SEPARATE REPORT Testing performed at reference lab . Report copy to follow on a separate form. 04/17/20 REF LAB#:[id number] 10 SEE SEPARATE REPORT 11 SEE SEPARATE REPORT 12 NOTE: RESULT VERIFIED. 13 Lab Result Notes: Pre-Diabetes 5.7 - 6.4 % Diabetes = or > 6.5% 14 100-125 mg/dL PRE-DIABET ES/FASTING >126 mg/dL DIABETES/FASTING 15 NOTE: RESULT VERIFIED. 16 CHRONIC KIDNEY DISEASE STAGI NG PER NKF STAGE I & II GFR >= 60 NORMAL TO MILDLY DECREASED STAGE III GFR 30-59 MODERATELY DECREASED STAGE IV GFR 15-29 SEVERELY DECREASED STAGE V GFR <15 VERY LITTLE GFR LEFT ESRD GFR <15 ON FINAL INSPECTOR PAPER 17 Performed at: RN - [facility] [address] [id number] [employer]: Jana Barbosa MD, Phone: [phone] 18 Units are mL/min/1.73 m2 Chronic Kidney Disease Staging per NKF: Stage I & II GFR >=60 Normal to Mildly Decreased Stage III GFR 30-59 Moderately Decreased Stage IV GFR 15-29 Severely Decreased Stage V GFR <15 Very Little GFR Left ESRD GFR <15 on FINAL INSPECTOR PAPER [address] SERUM AND URINE IMMUNOTYPING. 20 REV'D BY Mike LAN Procedures Date Code Description Status 12/30/2017 [id number] Diabetic Retinal Eye Exam Comple mackenzie 12/28/2017 724414610 Diabetic Retinal Eye Exam Comple mackenzie 07/16/2016 [id number] Colonoscopy Completed 04/04/2016 020921151 Diabetic Retinal Eye Exam Comple mackenzie 06/13/2015 45839143 Mammogram Completed 04/06/2014 07525461 Mammogram Completed 01/13/2013 [id number] Mammogram Completed 06/22/2012 [id number] Diabetic Retinal Eye Exam Comple mackenzie 04/20/2012 [id number] Bone Mineral Density Test Comple mackenzie 01/07/2012 [id number] Mammogram Completed 12/03/2010 [id number] Colonoscopy Completed Medical Devices Description No Information Available Encounters Type Date Location Provider Dx Diagnosis Office Visit 03/02/2020 9:20a [facility] 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 Z79.4 halfway (current) use of i nsulin E78.00 Pure hypercholesterolemia, u nspecified C90.01 Multiple myeloma in [facility] Date Code Description Provider 03/02/2020 I11.0 Hypertensive heart disease with heart failure Simba Dotson MD 03/02/2020 I50.32 Chronic diastolic (congestive) h eart failure Simba Dotson MD 03/02/2020 I48.20 Chronic atrial fibrillation, uns pecified Simba Dotson MD 03/02/2020 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
--- OUTSIDE RECORDS SUMMARY | 2020-09-10 12:16 | CCD ---
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 Active 6113487 02 Problem Clostridium difficile colitis A04.72 Active 42 0563976 Problem Paroxysmal atrial fibrillation I48.0 Active 2 45602516 Problem Diarrhea of presumed infectious origin R19.7 A ctive 13435542 Problem Elevated CPK R74.8 Active 381808861 Problem MSSA (methicillin susceptible Staphylococcus aureus) A49.01 Active 985258218 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 Code:[address]-86) itch Drug Allergy Active Penicillin (For Allergies Use Only) Rash Drug Allerg y 04/19/2019 Active ENCOUNTERS from 1945 to 2020-08-13 Encounter Location Date Provider Diagnosis [address] [address] Jul, Vinny Zapien IMMUNIZATIONS Vaccine Route Administration Date [...] College Language: Question Answer Notes Languages spoken: Citizen Of [place] Yazidism: Question Answer Notes Yazidism 08 Amish Sexual Hx: Question Answer Notes Had sex [...] Notes Start Da te End Date Status Zinplava 1000 MG/40ML 800 mg Intravenous once for 1 days 1 4 Jul, 2020 Active Farxiga 5 MG TAKE ONE TABLET BY MOUTH EVERY MORNING Oral Active Multivitamin Gummies Adult - as directed Orally Active Metformin HCl 500 MG 1 tablet with a meal Orally Once a day for 30 da y(s) Active Zofran 4 MG 1 tablet Orally bid as needed for 30 Days Active Nystatin - as directed topically groin Twice a day for 30 Days Active Januvia 100 MG 1 tablet Orally Once a day Active Dificid 200 MG 1 tablet Orally bid for 14 Days Active Flecainide Acetate 50 MG TAKE TWO TABLETS BY MOUTH TWICE DAILY Oral Active Digoxin 125 MCG as directed Orally A ctive Levothyroxine Sodium 75 MCG 1 tablet Oral Daily Active Lorazepam 1 MG 1 tab Oral bid prn Ac tive Morphine Sulfate ER 15 MG 1 capsule Orally twice a day and three times a day as needed Active Colesevelam HCl 3.75 GM MIX ONE PACKET IN FOUR OUNCE S OF WATER AND drink DAILY Oral for 30 Active Potassium Chloride Simona ER 20 MEQ 1 tab Oral twice daily Active Xarelto 20 MG 1 tablet with food Orally Once a day Active Vancomycin HCl 125 MG 1 capsule Orally every 6 hrs Dec, Active Bisoprolol Fumarate 10 MG TAKE ONE TABLET BY MOUTH TWICE DAILY Oral Active Lasix 40 MG 1 tablet Orally Once a day for 30 day(s) Active Levemir FlexTouch 100 UNIT/ML 10 units Subcutaneous Daily Active PROCEDURES No Information RESULTS No Results REASON FOR VISIT wants a call - [facility] MEDICAL (GENERAL) HISTORY Type Description Date Medical History acute discitis MSSA bacterem ia treated 1 year antibiotics done 02/2020 Medical History multiple myeloma and remission Medical History obesity Medical History insulin dependent diabetes Medical History hypertension Medical History atrial fibrillation Medical History recurrent C. difficile colit is first episode 01/15/20 2nd 03/11/20 - 3rd episode /7- 4th 05/15 and fifth episode 07/17/20 Surgical History lobectomy Surgical History chemo port Surgical History pacemaker Goals Section No Information Health Concerns No Information MEDICAL EQUIPMENT No Information MENTAL STATUS No Information FUNCTIONAL STATUS No Information ASSESSMENTS No Information PLAN OF TREATMENT Medication Medication Name Sig Start Date Stop Date Digoxin 125 MCG as directed Orally Bisoprolol Fumarate 10 MG TAKE ONE TABLET BY MOUTH TWICE DAILY O ral Flecainide Acetate 50 MG TAKE TWO TABLETS BY MOUTH TWICE DAILY O ral Dificid 200 MG 1 tablet Orally bid for 14 Days Farxiga 5 MG TAKE ONE TABLET BY MOUTH EVERY MORNING Oral Levemir FlexTouch 100 UNIT/ML 10 units Subcutaneous Daily Januvia 100 MG 1 tablet Orally Once a day Zinplava 1000 MG/40ML 800 mg Intravenous once for 1 days Jul, Next Appt Details Provider Name:Vinny Zapien, 2020-08-0 4 01:00:00 PM, [address] [place], [address], Insurance Providers Payer Name Payer Address Payer Phone Insured Name Patient Relati onship to Insured Coverage Start Date Coverage End Date [facility] FEDERAL [address] [address] [facility] [address] KARYNA MONGE
--- OUTSIDE RECORDS SUMMARY | 2020-09-10 12:16 | CCD ---
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 Active 2439054 02 Problem Clostridium difficile colitis A04.72 Active 42 4265662 Problem Paroxysmal atrial fibrillation I48.0 Active 2 30990540 Problem Diarrhea of presumed infectious origin R19.7 A ctive 95383467 Problem Elevated CPK R74.8 Active 982278334 Problem MSSA (methicillin susceptible Staphylococcus aureus) A49.01 Active 162707977 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 530427812 Problem Paresthesia of skin R20.2 Active 11561767 ALLERGIES Allergen (clinical drug ingredient) Drug/Non Drug Allergy do cumented on EMR Reaction Allergy Type Onset Date Status Codeine Phosphate([facility] 2[facility] Code:[address]-75) itch Drug Allergy Active Penicillin (For Allergies Use Only) Rash Drug Allerg y 04/19/2019 Active ENCOUNTERS from 1945 to 2020-08-19 Encounter Location Date Provider Diagnosis [address] [address] Jul, Vinny Zapien Clostridium difficile colitis A04.72 ; [...] Question Answer Notes Languages spoken: Citizen Of [place] Mosque: Question Answer Notes Mosque 08 Sikh Sexual Hx: Question Answer Notes Had sex in the last 12 months (vaginal, oral, or anal)? No Have you ever had an STD? No Alcohol Screening: Question Answer Notes Did you have a drink containing alcohol in the past year? No Points 0 Interpretation Negative Tobacco Use: Question Answer Notes Are you a: never smoker REASON FOR REFERRAL No Information VITAL SIGNS Weight 185 lbs Jul, Height 60 in Jul, BMI 36.13 kg/m2 Jul, Heart Rate 74 /min Jul, Respiratory Rate 18 /min Jul, Temperature 98.3 degrees Fahrenheit Jul, Oximetry 98 Jul, Blood pressure systolic 142 mm Hg Jul, Blood pressure diastolic 74 mm Hg Jul, MEDICATIONS Medication SIG (Take, Route, Frequency, Duration) [...] Information RESULTS No Results REASON FOR VISIT 2 week follow up MEDICAL (GENERAL) HISTORY Type Description Date Medical History acute discitis MSSA bacterem ia treated 1 year antibiotics done 02/2020 Medical History multiple myeloma and remission Medical History obesity Medical History insulin dependent diabetes Medical History hypertension Medical History atrial fibrillation Medical History recurrent C. difficile colit is first episode 01/15/20 2nd 03/11/20 - 3rd episode 04/02- 05/15 and fifth episode 07/17/20 Surgical History lobectomy Surgical History chemo port Surgical History pacemaker Goals Section No Information Health Concerns No Information MEDICAL EQUIPMENT No Information MENTAL STATUS No Information FUNCTIONAL STATUS No Information ASSESSMENTS Encounter Date Diagnosis Assessment Notes Treatment Notes Treatm ent Clinical Notes Jul, Clostridium difficile colitis (ICD-10 - A04.72) Patient was advised to take probiotics twice a day and yogurt. This is her fifth episode of Cdiff .She has failed oral vancomycin ,14 days Oral fidaxomicin with Dificid tapering and IV zinplava. She just finished 2 more weeks of dificid and will start tapering schedule again She may need stool transplant from family donor if not available through [facility] [employer] due to Covid or family members. 01/15/20 Cdiff 03/11/20 Cdiff 04/02/20 cdiff 05/15/20 cdiff 07/17/20 Cdiff received 14 days of dificid will start taper dificid. CAses DW Dr Burnett no stool transplant done since COVId , discussed option of family member as well. Jul, Discitis thoracic region (ICD-10 - M46.44) Off duricef mid February 2020. She has minimal back pain takes Advil 2 tablets once a day [id number]-vrd-npnttmw. Jul, MSSA (methicillin susceptibl e Staphylococcus aureus) (ICD-10 - A49.01) Jul, Multiple myeloma in remission (ICD-10 - C90.01) Jul, Paroxysmal atrial fibrillation (ICD-10 - I48.0) Jul, Type 2 diabetes mellitus without complications ( ICD-10 - E11.9) Jul, Periodontal disease (ICD-10 - K05.6) Had full [...] mg Intravenous once for 1 days Jul, Treatment Notes Assessment Notes Clinical Notes Clostridium difficile colitis Patient wa s advised to take probiotics twice a day and yogurt. This is her fifth episode of Cdiff .She has failed oral vancomycin ,14 days Oral fidaxomicin with Dificid tapering and IV zinplava.She j ust finished 2 more weeks of dificid and will start tapering schedule again She may need stool transplant from family donor if not available through [facility] [employer] due to Covid or family members.01/15/20 Cdiff8/16/ Cdiff9// cdiff10// cdiff/ Cdiff received 14 days of dificid will start taper dificid. CAses DW Dr Burnett no stool transplant done since COVId , discussed option of family member as well. Discitis thoracic region Off duricef mi d February 2020. She has minimal back pain takes Advil 2 tablets once a day [id number]. Periodontal disease Had full mouth extra ction , keflex prescibed 07/17/[address] Cisneros, had 1 day then had thrush Treatment Notes Test Name Order Date CT ABD & Pelvis w/o FOL by KEATON 2020-08-19 Next Appt Details 3 Weeks Reason: Provider Name:Vinny Zapien, 2020-08-0 4 01:00:00 PM, [address] [place], [address], Insurance Providers Payer Name Payer Address Payer Phone Insured Name Patient Relati onship to Insured Coverage Start Date Coverage End Date [facility] FEDERAL [address] [address] [facility] [id number] KARYNA MONGE
--- OUTSIDE RECORDS SUMMARY | 2020-09-10 12:17 | CCD | Continuity of Care Document ---
Author Author Lab Schedule, Javier De Guzman Organization Unknown Address [address] [address] Phone Unavailable Care Team Providers Care Peoplesoft Administrator Name Role Phone Jhon Louis DO AUTM [phone] Simba Dotson JR, MD AUT Unavailable Scar Bynum MD AUT [phone] Problems Active Problems Provider Date Disorder of [...] Tablet Take One Tablet By Mouth @8Am 90tabs Simba Dotson MD 11/23/2019 Vitamin D-1000 Maximum Strength 25mcg (1000 Ut) Tablets 1 by mouth every day 30tabs Shaina Sparks 10/03/2019 Unifine Pentips Plus 31G X 5 mm Mi sc Use Daily as Directed 100units Simba Dotson MD 09/02/19 20 Vitamin D3 25mcg Tablet take one tablet by mouth @8am 90barbarabs Simba Dotson MD 07/08/2019 Calcium 600/Vitamin D [id number]-[id number] Chewtabs 1 by mouth every day 90units [...] as needed 80gm Simba Dotson MD 09/25/2017 TaoTaoSoutoMeeWee Finepoint Lancets Misc test twice a day e11.9 200units Simba Dotson MD 08/26/19 18 OnetoMeeWee Ultra 2 w/Device Kit test twice a day and as directed e11.4 1units Simba Dotson MD 08/03/2017 TaoTaoSoutouch Ultra Blue Strips use twice daily to check blood sugar dx e11.9 200units Simba condon MD 08/03/2017 Levemir Flextouch 10 0Unit/ML Solution Pen-Inject Aewzer03 Units Under The Skin Daily 30ml Luis [...] and Take One Tablet @5PM 180tabs Co llrafiq Dotson MD 10/06/2011 Flecainide Acetate 50mg Tablets [...] CPT Code Status Date Vaccine Lot # 97580 Given 04/30/2018 Influenza Virus Vaccine, Quadrivalent (Cciiv4), Derived From Cell [id number] Q2037 Given 05/14/2016 Fluvirin Virus Vaccine 59296 01 89618 Given 03/11/2016 Tetanus/Diptheria(Td)Toxoids Preservative Free Q2037 Given 05/03/2015 Fluvirin Virus Vaccine 18833 01 Q2037 Given 04/24/2014 Fluvirin Virus Vaccine 65758 21 Q2037 Given 05/27/2013 Fluvirin Virus Vaccine 74789 Given 11/17/2012 Zoster Vaccine Q2037 Given 04/19/2012 Fluvirin Virus Vaccine Vital Signs Date Vital Result Comment 03/02/2020 9:16am BP Systolic 132 mmHg BP Diastolic 76 mmHg Heart Rate 72 /min Height 61 inches 5'1" Weight 174.00 lb BMI (Body Mass Index) 32.9 kg/m2 10/03/2019 2:17pm BP Systolic 122 mmHg BP Diastolic 72 mmHg Heart Rate 76 /min Weight 165.00 lb Results Test Acquired Date Facility Test Result H/L Range Note Comprehensive Metabolic Profil 05/16/2020 [place] [id number] [phone] Glucose, Fasting 189 mg/dL High 70-100 Blood [...] 0.9 Low 1.2-2.2 CBC With Differential 05/16/2020 [facility] [address] [place] [address] [phone] White Blood Count 11.8 10 High 4.0-10.0 [...] 36.0-66.0 Lymph % 13.8 % Low 24.0-44.0 [place] % 6.6 % High 0.0-5.0 Eos % 0.6 % Normal 0.0-3.0 Baso % 0.5 % Normal 0.0-1.0 Immature Granulocyte % 1.8 % Normal 0-3.0 Nucleated Red Blood Cell % 0.0 % Normal 0-0 Neutrophils # 9.1 10 High 1.5-8.5 Lymph # 1.6 10 Normal 1.5-5.0 [place] # 0.8 10 Normal 0.0-0.8 Eos # 0.1 10 Normal 0.0-0.5 Baso # 0.1 10 Normal 0.0-0.2 Immunoglobulin G,A,M 05/16/2020 [facility] enter [address] [place] [address] [phone] Immunoglobulin A 178.0 mg/dL Normal 70-400 Immunoglobulin G 633 mg/dL Low 681-1648 Immunoglobulin M 35.9 mg/dL Low 40-230 Immunotyping (Immunofixation) Serum (If 05/16/2020 [place] [address] [place] [address] [phone] It Serum Interpretation SEE COMMENT Normal 2 Its Pathologist Review REV'D BY O ADJAP <SEE NOTE> Normal 3 Serum Protein Electrophoresis 05/16/2020 [place] [address] [phone] Albumin % 59.5 % Normal 55.8-66.1 Jqipa-9-Whwkicms % 5.4 % High 2.9-4.9 Mtahy-0-Ovvsozdox % 11.6 % Normal 7.1-11.8 Kgff-7-Ulombssza % 7.3 % High 4.7-7.2 Prwl-4-Xthxjyxru % 6.3 % Normal 3.2-6.5 Gamma Globulin % 9.9 % Low 11.1-18.8 Albumin 3.81 GM/DL Normal 3.29-5.55 Zndzv-3-Vofjesrah 0.35 GM/DL Normal 0.17-0.41 Mkowz-6-Tydljpoaz 0.74 GM/DL Normal 0.42-0.99 Zzjr-3-Jqyyiuqct 0.47 GM/DL Normal 0.28-0.60 Uolo-6-Ipljfksud 0.40 GM/DL Normal 0.19-0.55 Gamma Globulins 0.63 GM/DL Low 0.65-1.58 Total Protein 6.4 GM/DL Normal 6.4-8.2 Spep Interpretation SEE COMMENT Normal 4 Spep Pathologist Review REV'D BY O ETELVINA <SEE NOTE> Normal 5 Serum Protein Electrophoresis 03/07/2020 [facility] [address] [place] [address] [phone] Albumin % TNP % Normal 55.8-66.1 Pxzep-7-Wwkjwgpi % TNP % Normal 2.9-4.9 Yrhwh-2-Zsvmjpfby % TNP % Normal 7.1-11.8 Yhjk-8-Mahmigshi % TNP % Normal 4.7-7.2 Lawa-9-Grcnodimp % TNP % Normal 3.2-6.5 Gamma Globulin % TNP % Normal 11.1-18.8 Albumin TNP GM/DL Normal 3.29-5.55 6 Myldn-1-Fdykmeigb TNP GM/DL Normal 0.17-0.41 Gqzhd-0-Twlrowgxc TNP GM/DL Normal 0.42-0.99 Meip-9-Uyvzctltu TNP GM/DL Normal 0.28-0.60 Nrul-8-Jnptbremk TNP GM/DL Normal 0.19-0.55 Gamma Globulins TNP GM/DL Normal 0.65-1.58 Total Protein 6.5 GM/DL Normal 6.4-8.2 7 Spep Interpretation TNP Normal Spep Pathologist Review TNP Normal Immunoglobulin G,A,M 03/07/2020 [facility] enter [address] [place], [place] [id number] [phone] Immunoglobulin A 162.0 mg/dL Normal 70-400 Immunoglobulin G 628 mg/dL Low 681-1648 Immunoglobulin M 35.5 mg/dL Low 40-230 Comprehensive Metabolic Profil 03/07/2020 [facility] [address] [place], [place] [id number] [phone] Glucose, Fasting 216 mg/dL High 70-100 Blood [...] 1.0 Low 1.2-2.2 CBC With Differential 03/07/2020 [place] [address] [place], [place] [address] [phone] White Blood Count 12.4 10 High 4.0-10.0 [...] 36.0-66.0 Lymph % 11.4 % Low 24.0-44.0 [place] % 6.1 % High 0.0-5.0 Eos % 0.7 % Normal 0.0-3.0 Baso % 0.2 % Normal 0.0-1.0 Immature Granulocyte % 1.3 % Normal 0-3.0 Nucleated Red Blood Cell % 0.0 % Normal 0-0 Neutrophils # 9.9 10 High 1.5-8.5 Lymph # 1.4 10 Low 1.5-5.0 [place] # 0.8 10 Normal 0.0-0.8 Eos # 0.1 10 Normal 0.0-0.5 Baso # 0.0 10 Normal 0.0-0.2 Free [place] & Lambda LT Chains 03/07/[address] [address] [phone] Free [place] Light Chains Serum SEE SEPARATE REP < SEE NOTE> Normal 9 Free Lambda Light Chains Serum SEE SEPARATE REP <SEE NOTE> Normal 10 [place]/Lambda Ratio Serum SEE SEPARATE REP <SEE NOTE> Normal 11 Complete Blood Count 03/02/2020 [facility] Speed Operator: [place] [address] [phone] WBC 15.0 x10*3/UL High 4.1 - 10.9 [...] x10*3/UL High 2.0 - 7.8 A1c 03/02/2020 [facility] Speed Operator: Dr Simba Dotson [place], [place] [id number] [phone] Hba1c 6.9 g/dL High 4.8 - 5.6 13 Est Avg Glucose 151 mg/dL High 60 - 110 Comprehensive Chem Profile 03/02/2020 [facility] Speed Operator: [place] [address] [phone] Glucose 147 mg/dL High 74 - 99 [...] Low >60 16 Laboratory test finding 03/02/2020 [facility] Speed Operator: Dr Simba Dotson [place], [place] [address] [phone] Thyroid Stimulating Hormone 3.89 uIU/mL High 0.3 6 - 3.74 CBC With Differential 02/06/2020 [facility] [address] [place], [place] [address] [phone] White Blood Count 13.4 10 High 4.0-10.0 [...] 36.0-66.0 Lymph % 12.8 % Low 24.0-44.0 [place] % 5.8 % High 0.0-5.0 Eos % 0.3 % Normal 0.0-3.0 Baso % 0.4 % Normal 0.0-1.0 Immature Granulocyte % 1.7 % Normal 0-3.0 Nucleated Red Blood Cell % 0.0 % Normal 0-0 Neutrophils # 10.6 10 High 1.5-8.5 Lymph # 1.7 10 Normal 1.5-5.0 [place] # 0.8 10 Normal 0.0-0.8 Eos # 0.0 10 Normal 0.0-0.5 Baso # 0.1 10 Normal 0.0-0.2 Free [place] & Lambda LT Chains 02/06/[address] [address] [phone] Free [place] Light Chains Serum 14.3 mg/L Normal 3. 3-19.4 Free Lambda Light Chains Serum 12.8 mg/L Normal 5.7-26.3 [place]/Lambda Ratio Serum 1.12 Normal 0.26-1.65 17 Comprehensive Metabolic Profil 02/06/[address] [address] [phone] Glucose, Fasting 185 mg/dL High 70-100 Blood [...] Ratio 1.0 Low 1.2-2.2 Immunoglobulin G,A,M 02/06/2020 [facility] [address] [place] [id number] [phone] Immunoglobulin A 161.0 mg/dL Normal 70-400 Immunoglobulin G 626 mg/dL Low 681-1648 Immunoglobulin M 31.9 mg/dL Low 40-230 Serum Protein Electrophoresis 02/06/[address] [address] [phone] Albumin % 58.9 % Normal 55.8-66.1 Eumva-5-Xujfkuqg % 6.1 % High 2.9-4.9 Hmqbp-4-Xfhwkvotx % 12.8 % High 7.1-11.8 Vncz-8-Bdarciyao % 7.0 % Normal 4.7-7.2 Cxgw-2-Cfdndkzwf % 6.2 % Normal 3.2-6.5 Gamma Globulin % 9.0 % Low 11.1-18.8 Albumin 3.95 GM/DL Normal 3.29-5.55 Srsim-8-Xwthkfenn 0.41 GM/DL Normal 0.17-0.41 Nwooy-1-Vaheazfsg 0.86 GM/DL Normal 0.42-0.99 Xmhw-9-Llddzaoep 0.47 GM/DL Normal 0.28-0.60 Ckwj-4-Qgvhltqaa 0.42 GM/DL Normal 0.19-0.55 Gamma Globulins 0.60 [...] Little GFR Left ESRD GFR <15 on ACID TESTER 2 NO MONOCLONAL BANDS NOTED. 3 REV'D [...] Little GFR Left ESRD GFR <15 on ACID TESTER 9 SEE SEPARATE REPORT Testing performed at reference lab . Report copy to follow on a separate form. 04/17/20 REF LAB#:[id number] 10 SEE SEPARATE REPORT 11 SEE SEPARATE [...] LITTLE GFR LEFT ESRD GFR <15 ON ACID TESTER 17 Performed at: RN - [facility] [address] [id number] Speed Operator: Jana Barbosa MD, Phone: [phone] Units are mL/min/1.73 m2 Chronic Kidney Disease Staging per NKF: Stage I & II GFR >=60 Normal to Mildly Decreased Stage III GFR 30-59 Moderately Decreased Stage IV GFR 15-29 Severely Decreased Stage V GFR <15 Very Little GFR Left ESRD GFR <15 on ACID TESTER [address] SERUM AND URINE IMMUNOTYPING. 20 REV'D BY Mike LAN Procedures Date Code Description Status 12/30/2017 [id number] Diabetic Retinal Eye Exam Comple mackenzie 12/28/2017 714798995 Diabetic Retinal Eye Exam Comple mackenzie 07/16/2016 36658211 Colonoscopy Completed 04/04/2016 [id number] Diabetic Retinal Eye Exam Comple mackenzie 06/13/2015 84231906 Mammogram Completed 04/06/2014 10572432 Mammogram Completed 01/13/2013 [id number] Mammogram Completed 06/22/2012 997556248 Diabetic Retinal Eye Exam Comple mackenzie 04/20/2012 [id number] Bone Mineral Density Test Comple mackenzie 01/07/2012 06596718 Mammogram Completed 12/03/2010 95288814 Colonoscopy Completed Medical Devices Description No Information Available Encounters Type Date Location Provider Dx Diagnosis Office Visit 03/02/2020 9:20a [facility] 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 Z79.4 manager long term care (current) use of i nsulin E78.00 Pure hypercholesterolemia, u nspecified C90.01 Multiple myeloma in [facility] Assessments Date Code Description Provider 03/02/2020 I11.0 Hypertensive heart disease with heart failure Simba Dotson MD 03/02/2020 I50.32 Chronic diastolic (congestive) h eart failure Simba Dotson MD 03/02/2020 I48.20 Chronic atrial fibrillation, uns pecified Simba Dotson MD 03/02/2020 Z79.01 manager long term care (current) use of antic oagulants Simba Dotson MD 03/02/2020 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 * I50.32 Chronic diastolic (congestive) heart failure * I48.20 Chronic atrial fibrillation, unspecified * Z79.01 manager long term care (current) use of anticoagulants * E11.21 Type 2 diabetes mellitus with diabetic nephropathy* Comments:* ABC's meet goal.Diabetic foot and eye exams up to date. TLC discussed. Glycemic index discussed. * Z79.4 manager long term care (current) use of insulin * E78.00 Pure hypercholesterolemia, unspecified * C90.01 Multiple myeloma in remission Functional Status Description No Information Available Mental Status Description No Information Available Referrals Description No Information Available
--- OUTSIDE RECORDS SUMMARY | 2020-09-10 12:18 | CCD ---
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 Name Role Phone Mike Burnett MD Unavailable Unavailable Mike Burnett MD Unavailable Unavailable Mike Burnett MD Unavailable Unavailable Mike Burnett MD Unavailable Unavailable Mike Burnett MD Unavailable Unavailable Mike Burnett MD Unavailable Unavailable Mike Burnett MD Unavailable Unavailable Mike Burnett MD Unavailable Unavailable Mike Burnett MD Unavailable Unavailable Mike Burnett MD Unavailable Unavailable Mike Burnett MD Unavailable Unavailable Mike Burnett MD Unavailable Unavailable Mike Burnett MD Unavailable Unavailable Mike Burnett MD Unavailable Unavailable Mike Burnett MD Unavailable Unavailable Mike Burnett MD Unavailable Unavailable Mike Burnett MD Unavailable Unavailable Mike Burnett MD Unavailable Unavailable Mike Burnett MD Unavailable Unavailable Mike Burnett MD Unavailable Unavailable Mike Burnett MD Unavailable Unavailable Mike Burnett MD Unavailable Unavailable Mike Burnett MD Unavailable Unavailable Mike Burnett MD Unavailable Unavailable Mike Burnett MD Unavailable Unavailable Mike Burnett MD Unavailable Unavailable Mike Burnett MD Unavailable Unavailable Mike Burnett MD Unavailable Unavailable Mike Burnett MD Unavailable Unavailable Mike Burnett MD Unavailable Unavailable Mike Burnett MD Unavailable Unavailable Mike Burnett MD Unavailable Unavailable Mike Burnett MD Unavailable Unavailable Mike Burnett MD Unavailable Unavailable Mike Burnett MD Unavailable Unavailable Hortencia, S Godwin HELTON Unavailable Unavailable Hortencia, S Godwin HELTON Unavailable Unavailable Hortencia, S Godwin HELTON Unavailable Unavailable Hortencia, S Godwin HELTON Unavailable Unavailable Hortencia, S Godwin HELTON Unavailable Unavailable Hortencia, S Godwin HELTON Unavailable Unavailable Hortencia, S Godwin HELTON Unavailable Unavailable Hortencia, S Godwin HELTON Unavailable Unavailable Hortencia, S Godwin HELTON Unavailable Unavailable Hortencia, S Godwin HELTON Unavailable Unavailable Hortencia, S Godwin HELTON Unavailable Unavailable Hortencia, S Gdowin HELTON Unavailable Unavailable Hortencia, S Godwin HELTON Unavailable Unavailable Hortencia, S Godwin HELTON Unavailable Unavailable Hortencia, S Godwin HELTON Unavailable Unavailable Symenow, Kaley Jacqueline PA Unavailable Unavailable Symenow, Kaley Jacqueline PA Unavailable Unavailable Symenow, Kaley Jacqueline PA Unavailable Unavailable Symenow, Kaley Jacqueline PA Unavailable Unavailable Symenow, Kaley Jacqueline PA Unavailable Unavailable Symenow, Kaley Jacquleine PA Unavailable Unavailable Symenow, Kaley Jacqueline PA Unavailable Unavailable Symenow, Kaley Jacqueline PA Unavailable Unavailable Symenow, Kaley Jacqueline PA Unavailable Unavailable Symenow, Kaley Jacqueline PA Unavailable Unavailable Symenow, Kaley Jacqueline PA Unavailable Unavailable Symenow, Kaley Jacqueline PA Unavailable Unavailable Symenow, Kaley Jacqueline PA Unavailable Unavailable Symenow, Kaley Jacqueline PA Unavailable Unavailable Symenow, Kaley Jacqueline PA Unavailable Unavailable Symenow, Kaley Jacqueline PA Unavailable Unavailable Symenow, Kaley Jacqueline PA Unavailable Unavailable Symenow, Kaley Jacqueline PA Unavailable Unavailable Symenow, Kaley Jacqueline PA Unavailable Unavailable Symenow, Kaley Jacqueline PA Unavailable Unavailable Symenow, Kaley Jacqueline PA Unavailable Unavailable Symenow, Kaley Jacqueline PA Unavailable Unavailable Symenow, Kaley Jacqueline PA Unavailable Unavailable Symenow, Kaley Jacqueline PA Unavailable Unavailable Symenow, Kaley Jacqueline PA Unavailable Unavailable Symenow, Kaley Jacqueline PA Unavailable Unavailable Symenow, Kaley Jacqueline PA Unavailable Unavailable Symenow, Kaley Jacqueline PA Unavailable Unavailable Symenow, Kaley Jacqueline PA Unavailable Unavailable Symenow, Kaley Jacqueline PA Unavailable Unavailable Symenow, Kaley Jacqueline PA Unavailable Unavailable Symenow, Kaley Jacqueline PA Unavailable Unavailable Symenow, Kaley Jacqueline PA Unavailable Unavailable Symenow, Kaley Jacqueline PA Unavailable Unavailable Symenow, Kaley Jacqueline PA Unavailable Unavailable Symenow, Kaley Jacqueline PA Unavailable Unavailable MauriMain MD Unavailable Unavailable MauriMain MD Unavailable Unavailable MauriMain MD Unavailable Unavailable MauriMain MD Unavailable Unavailable [place] MD Unavailable Unavailable [place] MD Unavailable Unavailable [place] MD Unavailable Unavailable [place] MD Unavailable Unavailable [place] MD Unavailable Unavailable MauriMain gomes MD Unavailable Unavailable [place] MD Unavailable Unavailable MauriMain MD Unavailable Unavailable [place] gomes MD Unavailable Unavailable MauriMain MD Unavailable Unavailable [place] gomes MD Unavailable Unavailable MauriMain gomes MD Unavailable Unavailable MauriMain gomes MD Unavailable Unavailable MauriMain gomes MD Unavailable Unavailable MauriMain gomes MD Unavailable Unavailable [place] gomes MD Unavailable Unavailable MauriMain gomes MD Unavailable Unavailable MauriMain gomes MD Unavailable Unavailable [place] gomes MD Unavailable Unavailable MauriMain gomes MD Unavailable Unavailable [place] gomes MD Unavailable Unavailable MauriMain gomes MD Unavailable Unavailable MauriMain gomes MD Unavailable Unavailable [place] gomes MD Unavailable Unavailable [place] gomes MD Unavailable Unavailable MauriMain gomes MD Unavailable Unavailable [place] gomes MD Unavailable Unavailable MauriMain gomes MD Unavailable Unavailable MauriMain MD Unavailable Unavailable [place] MD Unavailable Unavailable [place] MD Unavailable Unavailable [place] MD Unavailable Unavailable [place] gomes MD Unavailable Unavailable [place] gomes MD Unavailable Unavailable [place] gomes MD Unavailable Unavailable [place] MD Unavailable Unavailable [place] MD Unavailable Unavailable MauriMain MD Unavailable Unavailable [place] MD Unavailable Unavailable Mauri, F Cottrell MD Unavailable Unavailable Mauri, F Cottrell MD Unavailable Unavailable Mauri, F Cottrell MD Unavailable Unavailable [place], F Cottrell MD Unavailable Unavailable Mauri, F Cottrell MD Unavailable Unavailable [place], F Cottrell MD Unavailable Unavailable [place], F Cottrell MD Unavailable Unavailable [place], F Cottrell MD Unavailable Unavailable [place], F Cottrell MD Unavailable Unavailable [place], F Cottrell MD Unavailable Unavailable [place], F Cottrell MD Unavailable Unavailable Mauri, F Cottrell MD Unavailable Unavailable Mauri, F Cottrell MD Unavailable Unavailable [place], F Cottrell MD Unavailable Unavailable Mauri, F Cottrell MD Unavailable Unavailable [place], F Cottrell MD Unavailable Unavailable Mauri, F Cottrell MD Unavailable Unavailable [place], F Ctotrell MD Unavailable Unavailable Mauri, F Cottrell MD Unavailable Unavailable [place], F Cottrell MD Unavailable Unavailable [place], F Cottrell MD Unavailable Unavailable Mauri, F Cottrell MD Unavailable Unavailable Mauri, F Cottrell MD Unavailable Unavailable Mauri, F Cottrell MD Unavailable Unavailable [place], F Cottrell MD Unavailable Unavailable [place], F Cottrell MD Unavailable Unavailable [place], F Cottrell MD Unavailable Unavailable Mauri, F Cottrell MD Unavailable Unavailable Mauri, F Cottrell MD Unavailable Unavailable [place], F Cottrell MD Unavailable Unavailable Mauri, F Cottrell MD Unavailable Unavailable Mauri, F Cottrell MD Unavailable Unavailable Mauri, F Cottrell MD Unavailable Unavailable Mauri, F Cottrell MD Unavailable Unavailable Mauri, F Cottrell MD Unavailable Unavailable [place], F Cottrell MD Unavailable Unavailable [place], F Cottrell MD Unavailable Unavailable Mauri, F Cottrell MD Unavailable Unavailable Mauri, F Cottrell MD Unavailable Unavailable Mauri, F Cottrell MD Unavailable Unavailable [place], F Cottrell MD Unavailable Unavailable Mauri, F Cottrell MD Unavailable Unavailable Mauri, F Cottrell MD Unavailable Unavailable YUMI QUINTANA MD Unavailable Unavailable YUMI QUINTANA MD Unavailable Unavailable YUMI QUINTANA MD Unavailable Unavailable YUMI QUINTANA MD Unavailable Unavailable YUMI QUINTANA MD Unavailable Unavailable YUMI QUINTANA MD Unavailable Unavailable YUMI QUINTANA MD Unavailable Unavailable YUMI QUINTANA MD Unavailable Unavailable YUMI QUINTANA MD Unavailable Unavailable YUMI QUINTANA MD Unavailable Unavailable YUMI QUINTANA MD Unavailable Unavailable YUMI QUINTANA MD Unavailable Unavailable YUMI QUINTANA MD Unavailable Unavailable YUMI QUINTANA MD Unavailable Unavailable MARKWITH, YUMI MD Unavailable Unavailable MARKWITH, YUMI MD Unavailable Unavailable MARKWITH, YUMI MD Unavailable Unavailable MARKWITH, YUMI MD Unavailable Unavailable MARKWITH, YUMI MD Unavailable Unavailable MARKWITH, YUMI MD Unavailable Unavailable MARKWITH, YUMI MD Unavailable Unavailable MARKWITH, YUMI MD Unavailable Unavailable MARKWITH, YUMI MD Unavailable Unavailable MARKWITH, YUMI MD Unavailable Unavailable MARKWITH, YUMI MD Unavailable Unavailable MARKWITH, YUMI MD Unavailable Unavailable MARKWITH, YUMI MD Unavailable Unavailable MARKWITH, YUMI MD Unavailable Unavailable MARKWITH, YUMI MD Unavailable Unavailable MARKWITH, YUMI MD Unavailable Unavailable MARKWITH, YUMI MD Unavailable Unavailable MARKWITH, YUMI MD Unavailable Unavailable MARKWITH, YUMI MD Unavailable Unavailable Re-disclosure Warning The records that you are about to access may contain information from federally-assisted alcohol or drug abuse programs. If such information is present, then the following federally mandated warning applies: This information has been disclosed to you from records protected by federal confidentiality rules (42 CFR part 2). The federal rules prohibit you from making any further disclosure of this information unless further disclosure is expressly permitted by the written consent of the person to whom it pertains or as otherwise permitted by 42 CFR part 2. A general authorization for the release of medical or other information is NOT sufficient for this purpose. The Federal rules restrict any use of the information to criminally investigate or prosecute any alcohol or drug abuse patient.The records that you are about to access may contain highly sensitive health information, the redisclosure of which is protected by Article 27-F of the [place] Public [employer] law. If you continue you may have access to information: Regarding HIV / AIDS; Provided by facilities licensed or operated by the [place] Office of Mental Health; or Provided by the [place] Office for People With Developmental Disabilities. If such information is present, then the following [place] mandated warning applies: This information has been disclosed to you from confidential records which are protected by state law. State law prohibits you from making any further disclosure of this information without the specific written consent of the person to whom it pertains, or as otherwise permitted by law. Any unauthorized further disclosure in violation of state law may result in a fine or group home sentence or both. A general authorization for the release of medical or other information is NOT sufficient authorization for further disc losure. Allergies and Adverse Reactions Type Description Substance Reaction Status Data Source(s ) Drug allergy Codeine Phosphate Drug allergy itch Active eCW 1 ([facility]) Family History Family Member Name Family Member Gender Family Member Status Date o f Status Description Data Source(s) Unknown Unknown Problem MEDENT ([facility]) Unknown Male Problem MEDENT ([facility] ) () Unknown Female Problem MEDENT ([facility]) Unknown Female Problem MEDENT ([facility]) Unknown Female Problem MEDENT ([facility]) Unknown Male Problem MEDENT ([facility] ) Encounters Encounter Providers Location Date Indications Data Source(s ) Office Visit Attender: Godwin Burnett MD Main Office 01:45:00 PM EST MEDENT ([facility] ) TeleMedicine Est. Pt. Level [address] [place] [phone] 08/30/2020 12:00:00 AM EST eCW1 ([facility]) Unknown [address] [id number] 08/10/2020 12:00:00 AM EST eCW1 ([facility]) Outpatient [address] [id number] 08/09/2020 12:00:00 AM EST eCW1 ([facility]) Unknown [address] [id number] 07/24/2020 12:00:00 AM EST eCW1 ([facility]) Unknown [address] [id number] 07/13/2020 12:00:00 AM EST eCW1 ([facility]) TeleMedicine Phone E/M by Phys 11-20 Min [address] [place] [address] 07/09/2020 12:00:00 AM EST eCW1 ([facility]) Unknown [address] [id number] 07/08/2020 12:00:00 AM EST eCW1 ([facility]) Office Visit Attender: Simba Akins 09/03/2019 10:00:00 AM EST MEDENT ([facility] ) Unknown [address] [facility] [place] [address] 07/03/2020 12:00:00 AM EST eCW1 ([facility]) Unknown [address] [facility] [place] [id number] 05/24/2020 12:00:00 AM EDT eCW1 ([facility]) Outpatient [address] [facility] [place] [address] 05/22/2020 12:00:00 AM EDT eCW1 ([facility]) Office Visit Attender: YUMI QUINTANA MD Physical Therapy 11:30:00 AM EDT MEDENT ([facility]) Outpatient Attender: Simba Crouch 0 03/02/2020 09:20:00 AM EDT MEDENT ([facility] ) Outpatient [address] [facility] [place] [id number] 02/09/2020 12:00:00 AM EDT eCW1 ([facility]) Outpatient Attender: Jacqueline MAYO Main Office 02/08/2020 10:45:00 AM EDT MEDENT ([facility]) Unknown [address] [facility] [address] 01/17/2020 12:00:00 AM EDT eCW1 ([facility]) Unknown [address] [facility] [place] [id number] 01/02/2020 12:00:00 AM EDT eCW1 [facility]) Outpatient Attender: YUMI QUINTANA MD Physical Therapy 11:00:00 AM EDT MEDENT ([facility]) [facility] [address] [facility] [place] [id number] 12/08/2019 12:00:00 AM EDT eCW1 [facility] [place] [address] [facility] [place] [address] 12/08/2019 12:00:00 AM EDT eCW1 ([facility]) [facility] [address] [facility] [place] [address] 12/01/2019 12:00:00 AM EDT eCW1 ([facility]) Outpatient Attender: Simba Crouch 0 11/24/2019 10:40:00 AM EDT MEDENT ([facility] ) [facility] Dermatology [address] [place] [phone] 11/02/2019 12:00:00 AM EDT eCW1 ([facility]) [facility] [address] [place] [address] [place] [id number] 10/27/2019 12:00:00 AM EDT eCW1 ([facility]) [address] [place] [address] 10/13/2019 12:00:00 AM EDT eCW1 ([facility]) Outpatient Attender: Simba Crouch 0 10/03/2019 02:15:00 PM EDT MEDENT ([facility] ) [address] [place] [address] 09/01/2019 12:00:00 AM EST eCW1 ([facility]) [facility] [address] [place] [address] [place] [address] 08/25/2019 12:00:00 AM EST eCW1 ([facility]) [facility] Dermatology [address] [place] [id number] 08/10/2019 12:00:00 AM EST eCW1 ([facility]) [facility] [address] [place] [address] [place] [address] 08/02/2019 12:00:00 AM EST eCW1 ([facility]) [facility] [address] [place] [address] [place] [address] 08/02/2019 12:00:00 AM EST eCW1 ([facility]) Medications Medication Brand Name Start Date Product Form Dose Route Admi nistrative Instructions Pharmacy Instructions Status Indications Reaction Description Data Source(s) 1.479-0.188 gram 09/05/2020 12:00:00 AM EST tablet 24 USE DIRECTED USE DIRECTED SOLD: 09/05/2020 [facility] Sutab Sutab 09/04/2020 12:00:00 AM EST active MEDENT ([facility]) 200 mg 08/30/2020 12:00:00 AM EST tablet 28 TAKE ONE TABLET BY MOUTH TWICE A DAY FOR 2 WEEKS TAKE ONE TABLET BY MOUTH TWICE A DAY FOR 2 WEEKS SOLD: 09/02/2020 [facility] 100 unit/mL (3 mL) 08/29/2020 12:00:00 AM EST insulin pen 45 INJECT 60 UNITS UNDER THE SKIN ONCE DAILY INJECT 60 UNITS UNDER THE SKIN ONCE DAILY SOLD: 08/30/2020 [facility] 1 mg 08/19/2020 12:00:00 AM EST tablet 120 TAKE ONE TABLET BY MOUTH FOUR TIMES A DAY NEEDED MAXIMUM DAILY DOSE = 4 TAKE ONE TABLET BY MOUTH FOUR TIMES A DAY NEEDED MAXIMUM DAILY DOSE = 4 SOLD: 08/19/2020 [facility] 200 mg 08/11/2020 12:00:00 AM EST tablet 28 TAKE ONE TABLET BY MOUTH TWICE A DAY X 14 DAYS TAKE ONE TABLET BY MOUTH TWICE A DAY X 14 DAYS SOLD: 08/11/2020 [facility] Zinplava 1000 MG/40ML Zinplava 1000 MG/40ML 08/09/2020 12:00:00 AM EST active Zinplava 1000 MG/40ML eCW1 ( [facility]) Zinplava 1000 MG/40ML Zinplava 1000 MG/40ML 08/09/2020 12:00:00 AM EST active Zinplava 1000 MG/40ML eCW1 ( [facility]) 100 unit/mL (3 mL) 07/28/2020 12:00:00 AM EST insulin pen 30 INJECT 80 UNITS UNDER THE SKIN ONCE DAILY INJECT 80 UNITS UNDER THE SKIN ONCE DAILY SOLD: 07/30/2020 [facility] 200 mg 07/25/2020 12:00:00 AM EST tablet 28 TAKE ONE TABLET BY MOUTH TWICE A DAY X 14 DAYS TAKE ONE TABLET BY MOUTH TWICE A DAY X 14 DAYS SOLD: 07/26/2020 [facility] 31 gauge x /16" 07/25/2020 12:00:00 AM EST needle 30 USE DAILY USE DAILY SOLD: 07/26/2020 [facility] fidaxomicin 200 MG Oral Tablet [Dificid] Dificid 200 MG Difi mario 200 MG 07/24/2020 12:00:00 AM EST 1.0 {tablet} active Dificid 200 MG eCW1 ([facility]) fidaxomicin 200 MG Oral Tablet [Dificid] Dificid 200 MG Difi mario 200 MG 07/24/2020 12:00:00 AM EST 1.0 {tablet} active Dificid 200 MG eCW1 ([facility]) 1 mg 07/18/2020 12:00:00 AM EST tablet 120 TAKE ONE TABLET BY MOUTH FOUR TIMES A DAY NEEDED MAXIMUM DAILY DOSE = 4 TAKE ONE TABLET BY MOUTH FOUR TIMES A DAY NEEDED MAXIMUM DAILY DOSE = 4 SOLD: 07/21/2020 [facility] 5-325 mg 07/17/2020 12:00:00 AM EST tablet 15 TAKE ONE TABLET BY MOUTH EVERY 4 TO 6 HOURS NEEDED FOR PAIN MAXIMUM DAILY DOSE = 5 TAKE ONE TABLET BY MOUTH EVERY 4 TO 6 HOURS NEEDED FOR PAIN MAXIMUM DAILY DOSE = 5 SOLD: 07/17/2020 [facility] 0.12 % 07/17/2020 12:00:00 AM EST mouthwash 473 RINSE AND SPIT 1 CAPFUL BY MOUTH THREE TIMES A DAY BEGINNING TOMORR RINSE AND SPIT 1 CAPFUL BY MOUTH THREE TIMES A DAY BEGINNING TOMORROW SOLD: 07/17/2020 [facility] Cephalexin 500 MG Oral Capsule CEPHALEXIN 07/17/2020 12:00:00 AM EST capsule 20 TAKE ONE CAPSULE BY MOUTH EVERY 6 HOURS UNTIL GONE SMOOTH E ONE CAPSULE BY MOUTH EVERY 6 HOURS UNTIL GONE SOLD: 07/17/2020 [facility] 1 mg 06/23/2020 12:00:00 AM EST tablet 120 TAKE ONE TABLET BY MOUTH FOUR TIMES A DAY NEEDED MAXIMUM DAILY DOSE = 4 TAKE ONE TABLET BY MOUTH FOUR TIMES A DAY NEEDED MAXIMUM DAILY DOSE = 4 SOLD: 06/23/2020 [facility] 0.1 % 06/19/2020 12:00:00 AM EST ointment 80 APPLY TOPICALLY TO RASH IN GROIN AND UNDER RIGHT BREAST DAILY NEEDED APPLY TOPICALLY TO RASH IN GROIN AND UNDER RIGHT BREAST DAILY NEEDED SOLD: 06/20/2020 [facility] 0.1 % 06/19/2020 12:00:00 AM EST ointment 80 APPLY TOPICALLY TO RASH IN GROIN AND UNDER RIGHT BREAST DAILY NEEDED APPLY TOPICALLY TO RASH IN GROIN AND UNDER RIGHT BREAST DAILY NEEDED SOLD: 08/28/2020 [facility] 200 mg 05/25/2020 12:00:00 AM EDT tablet 35 TAKE ONE TABLET BY MOUTH TWICE A DAY FOR 10 DAYS THEN 1 TAB. DAILY FOR 1 WEEK THEN 1 TABLET EVERY OTHER DAY FOR 1 WEEK, 1 TABLET EVERY 3 DAYS FOR 2 WEEKS TAKE ONE TABLET BY MOUTH TWICE A DAY FOR 10 DAYS THEN 1 TAB. DAILY FOR 1 WEEK THEN 1 TABLET EVERY OTHER DAY FOR 1 WEEK, 1 TABLET EVERY 3 DAYS FOR 2 WEEKS SOLD: 05/25/2020 [facility] 1 mg 05/24/2020 12:00:00 AM EDT tablet 120 TAKE ONE TABLET BY MOUTH FOUR TIMES A DAY NEEDED MAXIMUM DAILY DOSE = 4 TABLETS TAKE ONE TABLET BY MOUTH FOUR TIMES A DAY NEEDED MAXIMUM DAILY DOSE = 4 TABLETS SOLD: 05/25/2020 [facility] fidaxomicin 200 MG Oral Tablet [Dificid] Dificid 200 MG Difi mario 200 MG 05/22/2020 12:00:00 AM EDT 1.0 {tablet} active Dificid 200 MG eCW1 ([facility]) fidaxomicin 200 MG Oral Tablet [Dificid] Dificid 200 MG Difi mario 200 MG 05/22/2020 12:00:00 AM EDT 1.0 {tablet} active Dificid 200 MG eCW1 ([facility]) fidaxomicin 200 MG Oral Tablet [Dificid] Dificid 200 MG Difi mario 200 MG 05/22/2020 12:00:00 AM EDT 1.0 {tablet} active Dificid 200 MG eCW1 ([facility]) 1 mg 04/24/2020 12:00:00 AM EDT tablet 120 TAKE ONE TABLET BY MOUTH FOUR TIMES A DAY NEEDED MAXIMUM DAILY DOSE = 4 TAKE ONE TABLET BY MOUTH FOUR TIMES A DAY NEEDED MAXIMUM DAILY DOSE = 4 SOLD: 04/24/2020 [facility] 200 mg 04/09/2020 12:00:00 AM EDT tablet 28 TAKE ONE TABLET BY MOUTH TWICE A DAY TAKE ONE TABLET BY MOUTH TWICE A DAY SOLD: 04/10/2020 [facility] 1 mg 03/21/2020 12:00:00 AM EDT tablet 120 TAKE ONE TABLET BY MOUTH FOUR TIMES A DAY NEEDED MAXIMUM DAILY DOSE = 4 TAKE ONE TABLET BY MOUTH FOUR TIMES A DAY NEEDED MAXIMUM DAILY DOSE = 4 SOLD: 03/21/2020 [facility] 0.1 % 03/02/2020 12:00:00 AM EDT ointment 80 APPLY TO RASH IN GROIN AND UNDER RIGHT BREAST DAILY NEEDED APPLY TO RASH IN GROIN AND UNDER RIGHT B REAST DAILY NEEDED SOLD: 03/02/2020 [facility] 5-325 mg 02/29/2020 12:00:00 AM EDT tablet 15 TAKE 1 TABLET BY MOUTH EVERY 4-6 HOURS NEEDED FOR PAIN MAXIMUM DAILY DOSE =5 TAKE 1 TABLET BY MOUTH EVERY 4-6 HOURS NEEDED FOR PAIN MAXIMUM DAILY DOSE =5 SOLD: 02/29/2020 [facility] Cephalexin 500 MG Oral Capsule CEPHALEXIN 02/29/2020 12:00:00 AM EDT capsule 20 TAKE 1 CAPSULE BY MOUTH LOBITO 6 HOURS UNTIL GONE TAKE 1 CAPSULE BY MOUTH LOBITO 6 HOURS UNTIL GONE SOLD: 02/29/2020 [facility] 0.12 % 02/29/2020 12:00:00 AM EDT mouthwash 473 RINSE WITH 1 CAPFUL THREE TIMES A DAY BEGINNING TOMORROW RINSE WITH 1 CAPFUL THREE TIMES A DAY BE GINNING TOMORROW SOLD: 02/29/2020 [facility] 1 mg 02/21/2020 12:00:00 AM EDT tablet 120 TAKE ONE TABLET BY MOUTH FOUR TIMES A DAY NEEDED MAXIMUM DAILY DOSE = 4 TABLETS TAKE ONE TABLET BY MOUTH FOUR TIMES A DAY NEEDED MAXIMUM DAILY DOSE = 4 TABLETS SOLD: 02/21/2020 [facility] Vancomycin 125 MG Oral Capsule Vancomycin HCL 02/07/2020 12:00:00 AM E DT active MEDENT ([facility]) 100 unit/mL (3 mL) 02/07/2020 12:00:00 AM EDT insulin pen 30 INJECT 60 UNITS UNDER THE SKIN ONCE DAILY INJECT 60 UNITS UNDER THE SKIN ONCE DAILY SOLD: 02/08/2020 [facility] 100 unit/mL (3 mL) 02/07/2020 12:00:00 AM EDT insulin pen 30 INJECT 60 UNITS UNDER THE SKIN ONCE DAILY INJECT 60 UNITS UNDER THE SKIN ONCE DAILY SOLD: 05/12/2020 [facility] 100 unit/mL (3 mL) 02/07/2020 12:00:00 AM EDT insulin pen 30 INJECT 60 UNITS UNDER THE SKIN ONCE DAILY INJECT 60 UNITS UNDER THE SKIN ONCE DAILY SOLD: 04/04/2020 [facility] 100 unit/mL (3 mL) 02/07/2020 12:00:00 AM EDT insulin pen 30 INJECT 60 UNITS UNDER THE SKIN ONCE DAILY INJECT 60 UNITS UNDER THE SKIN ONCE DAILY SOLD: 06/23/2020 [facility] BLOOD-GLUCOSE METER 02/07/2020 12:00:00 AM EDT misc 1 TEST TWO TIMES A DAY AND DIRECTED TEST TWO TIMES A DAY AND DIRECTED SOLD: 02/08/2020 [facility] 1 mg 01/23/2020 12:00:00 AM EDT tablet 120 TAKE ONE TABLET BY MOUTH FOUR TIMES A DAY NEEDED MAXIMUM DAILY DOSE = 4 TAKE ONE TABLET BY MOUTH FOUR TIMES A DAY NEEDED MAXIMUM DAILY DOSE = 4 SOLD: 01/23/2020 [facility] Vancomycin 125 MG Oral Capsule Vancomycin HCl 125 MG Vancomy adams HCl 125 MG 01/17/2020 12:00:00 AM EDT 1.0 {capsule} active Vancomycin HCl 125 MG eCW1 ([facility]) Vancomycin 125 MG Oral Capsule Vancomycin HCl 125 MG Vancomy adams HCl 125 MG 01/17/2020 12:00:00 AM EDT 1.0 {capsule} active Vancomycin HCl 125 MG eCW1 ([facility]) Vancomycin 125 MG Oral Capsule Vancomycin HCl 125 MG Vancomy adams HCl 125 MG 01/17/2020 12:00:00 AM EDT 1.0 {capsule} active Vancomycin HCl 125 MG eCW1 ([facility]) Vancomycin 125 MG Oral Capsule Vancomycin HCl 125 MG Vancomy adams HCl 125 MG 01/17/2020 12:00:00 AM EDT 1.0 {capsule} active Vancomycin HCl 125 MG eCW1 ([facility]) Vancomycin 125 MG Oral Capsule Vancomycin HCl 125 MG Vancomy adams HCl 125 MG 01/17/2020 12:00:00 AM EDT 1.0 {capsule} active Vancomycin HCl 125 MG eCW1 ([facility]) Vancomycin 125 MG Oral Capsule Vancomycin HCl 125 MG Vancomy adams HCl 125 MG 01/17/2020 12:00:00 AM EDT 1.0 {capsule} active Vancomycin HCl 125 MG eCW1 ([facility]) Vancomycin 125 MG Oral Capsule Vancomycin HCl 125 MG Vancomy adams HCl 125 MG 01/17/2020 12:00:00 AM EDT 1.0 {capsule} active Vancomycin HCl 125 MG eCW1 ([facility]) Vancomycin 125 MG Oral Capsule Vancomycin HCl 125 MG Vancomy adams HCl 125 MG 01/17/2020 12:00:00 AM EDT 1.0 {capsule} active Vancomycin HCl 125 MG eCW1 ([facility]) Vancomycin 125 MG Oral Capsule Vancomycin HCl 125 MG Vancomy adams HCl 125 MG 01/17/2020 12:00:00 AM EDT 1.0 {capsule} active Vancomycin HCl 125 MG eCW1 ([facility]) Vancomycin 125 MG Oral Capsule Vancomycin HCl 125 MG Vancomy adams HCl 125 MG 01/17/2020 12:00:00 AM EDT 1.0 {capsule} active Vancomycin HCl 125 MG eCW1 ([facility]) Vancomycin 125 MG Oral Capsule Vancomycin HCl 125 MG Vancomy adams HCl 125 MG 01/17/2020 12:00:00 AM EDT 1.0 {capsule} active Vancomycin HCl 125 MG eCW1 ([facility]) Vancomycin 125 MG Oral Capsule Vancomycin HCl 125 MG Vancomy adams HCl 125 MG 01/17/2020 12:00:00 AM EDT 1.0 {capsule} active Vancomycin HCl 125 MG eCW1 ([facility]) sitagliptin 100 MG Oral Tablet [Januvia] Januvia 01/09/2020 12:00: 00 AM EDT active [facility] ([facility]) 1 mg 12/24/2019 12:00:00 AM EDT tablet 120 TAKE ONE TABLET BY MOUTH FOUR TIMES A DAY NEEDED MAXIMUM DAILY DOSE = 4 TAKE ONE TABLET BY MOUTH FOUR TIMES A DAY NEEDED MAXIMUM DAILY DOSE = 4 SOLD: 12/24/2019 [facility] 0.1 % 12/12/2019 12:00:00 AM EDT ointment 80 APPLY TO RASH IN GROIN AND UNDER RIGHT BREAST DAILY NEEDED APPLY TO RASH IN GROIN AND UNDER RIGHT B REAST DAILY NEEDED SOLD: 12/15/2019 [facility] 15 mg 12/07/2019 12:00:00 AM EDT tablet 14 TAKE ONE TABLET BY MOUTH EVERY DAY FOR 2 WEEKS THEN DISCONTINUE MAXIMUM DAILY DOSE = 1 TAKE ONE TABLET BY MOUTH EVERY DAY FOR 2 WEEKS THEN DISCONTINUE MAXIMUM DAILY DOSE = 1 SOLD: 12/08/2019 [facility] Morphine Sulfate 15 MG Oral Tablet Morphine Sulfate 12/07/2019 1 2:00:00 AM EDT ORAL completed MED[facility] ([facility]) Morphine Sulfate 15 MG Oral Tablet Morphine Sulfate 12/07/2019 1 2:00:00 AM EDT ORAL completed [facility] ([facility]) 1 mg 11/25/2019 12:00:00 AM EDT tablet 120 TAKE 1 TABLET BY MOUTH FOUR TIMES A DAY NEEDED MAXIMUM DAILY DOSE = 4 TAKE 1 TABLET BY MOUTH FOUR TIMES A DAY NEEDED MAXIMUM DAILY DOSE = 4 SOLD: 11/25/2019 [facility] Cefadroxil 500 MG Oral Capsule Cefadroxil 11/24/2019 12:00:00 AM EDT completed MEDENT ([facility]) Cholecalciferol (Vitamin D3) 11/23/2019 12:00:00 AM EDT active MED[facility] ([facility]) 15 mg 11/07/2019 12:00:00 AM EDT tablet 56 TAKE 1 TABLET BY MOUTH EVERY 8 HOURS NEEDED FOR PAIN MAXIMUM DAILY DOSE = 3 TAKE 1 TABLET BY MOUTH EVERY 8 HOURS NEEDED FOR PAIN MAXIMUM DAILY DOSE = 3 SOLD: 11/07/2019 [facility] 30 gauge 11/05/2019 12:00:00 AM EDT misc 200 USE TWO TIMES A DAY USE TWO TIMES A DAY SOLD: 11/07/2019 [facility] 31 gauge x 3/16" 10/30/2019 12:00:00 AM EDT needle 90 USE DAILY DIRECTED USE DAILY DIRECTED SOLD: 02/20/2020 [facility] 31 gauge x 3/16" 10/30/2019 12:00:00 AM EDT needle 90 USE DAILY DIRECTED USE DAILY DIRECTED SOLD: 05/26/2020 [facility] 31 gauge x 3/16" 10/30/2019 12:00:00 AM EDT needle 90 USE DAILY DIRECTED USE DAILY DIRECTED SOLD: 10/31/2019 [facility] 1 mg 10/27/2019 12:00:00 AM EDT tablet 120 TAKE ONE TABLET BY MOUTH FOUR TIMES A DAY NEEDED MAXIMUM DAILY DOSE = 4 TAKE ONE TABLET BY MOUTH FOUR TIMES A DAY NEEDED MAXIMUM DAILY DOSE = 4 SOLD: 10/27/2019 [facility] 15 mg 10/05/2019 12:00:00 AM EDT tablet 56 TAKE 1 TABLET BY MOUTH EVERY 8 HOURS NEEDED FOR PAIN MAXIMUM DAILY DOSE = 3 TAKE 1 TABLET BY MOUTH EVERY 8 HOURS NEEDED FOR PAIN MAXIMUM DAILY DOSE = 3 SOLD: 10/06/2019 [facility] 25 mcg (1,000 unit) 10/04/2019 12:00:00 AM EDT tablet 30 TAKE ONE TABLET BY MOUTH EVERY DAY TAKE ONE TABLET BY MOUTH EVERY DAY SOLD: 10/06/2019 [facility] Cholecalciferol 1000 UNT Oral Tablet Vitamin D-1000 Maximum Strength 10/03/2019 12:00:00 AM EDT ORAL active M EDENT ([facility]) 1 mg 09/28/2019 12:00:00 AM EST tablet 120 TAKE ONE TABLET BY MOUTH FOUR TIMES A DAY NEEDED MAXIMUM DAILY DOSE = 4 TAKE ONE TABLET BY MOUTH FOUR TIMES A DAY NEEDED MAXIMUM DAILY DOSE = 4 SOLD: 09/29/2019 [facility] 10 mg 09/19/2019 12:00:00 AM EST capsule,extend.release pellets 60 TAKE ONE CAPSULE BY MOUTH TWICE A DAY MAXIMUM DAILY DOSE = 2 CAPSULES TAKE ONE CAPSULE BY MOUTH TWICE A DAY MAXIMUM DAILY DOSE = 2 CAPSULES SOLD: 09/29/2019 [facility] 15 mg 09/06/2019 12:00:00 AM EST tablet 56 TAKE ONE TABLET BY MOUTH EVERY 8 HOURS NEEDED FOR PAIN MAXIMUM DAILY DOSE = 3 TABLETS TAKE ONE TABLET BY MOUTH EVERY 8 HOURS NEEDED FOR PAIN MAXIMUM DAILY DOSE = 3 TABLETS SOLD: 09/08/2019 [facility] 0.12 % 09/05/2019 12:00:00 AM EST mouthwash 473 RINSE WITH 1 CAPFUL THREE TIMES A DAY BEGINNING TOMORROW RINSE WITH 1 CAPFUL THREE TIMES A DAY BE GINNING TOMORROW SOLD: 09/05/2019 [facility] Unifine Pentips Plus 09/02/2019 12:00:00 AM EST active MED[facility] ([facility]) 31 gauge x 5/16" 08/30/2019 12:00:00 AM EST needle 30 USE DAILY USE DAILY SOLD: 06/25/2020 [facility] 31 gauge x 5/16" 08/30/2019 12:00:00 AM EST needle 30 USE DAILY USE DAILY SOLD: 08/31/2019 [facility] 31 gauge x 5/16" 08/30/2019 12:00:00 AM EST needle 30 USE DAILY USE DAILY SOLD: 01/07/2020 [facility] 1 mg 08/30/2019 12:00:00 AM EST tablet 120 TAKE ONE TABLET BY MOUTH FOUR TIMES A DAY NEEDED MAXIMUM DAILY DOSE = 4 TABLETS TAKE ONE TABLET BY MOUTH FOUR TIMES A DAY NEEDED MAXIMUM DAILY DOSE = 4 TABLETS SOLD: 08/31/2019 [facility] 31 gauge x 5/16" 08/30/2019 12:00:00 AM EST needle 30 USE DAILY USE DAILY SOLD: 10/02/2019 [facility] 10 mg 08/21/2019 12:00:00 AM EST capsule,extend.release pellets 60 TAKE ONE CAPSULE BY MOUTH TWICE A DAY * MAXIMUM DAILY DOSE = 2 TAKE ONE CAPSULE BY MOUTH TWICE A DAY * MAXIMUM DAILY DOSE = 2 SOLD: 08/23/2019 [facility] Metformin hydrochloride 500 MG Oral Tablet Metformin HCL 08/10/2019 12:00:00 AM EST ORAL completed MEDENT ([facility]) Nystatin - Nystatin - 08/02/2019 12:00:00 AM EST active as directed in the am eCW1 ([facility]) Nystatin - Nystatin - 08/02/2019 12:00:00 AM EST active as directed eCW1 ([facility]) 10 mg 07/05/2019 12:00:00 AM EST capsule,extend.release pellets 60 TAKE ONE CAPSULE BY MOUTH TWICE A DAY MAXIMUM DAILY DOSE = 2 CAPSULES TAKE ONE CAPSULE BY MOUTH TWICE A DAY MAXIMUM DAILY DOSE = 2 CAPSULES SOLD: 07/23/2019 [facility] Morphine Sulfate 15 MG Oral Tablet Morphine Sulfate 07/04/2019 1 2:00:00 AM EST ORAL completed MED[facility] ([facility]) Morphine Sulfate 10 MG Extended Release Oral Capsule Morphin e Sulfate ER 07/04/2019 12:00:00 AM EST completed [facility] ([facility]) 0.1 % 04/19/2019 12:00:00 AM EDT cream 80 APPLY TO RASH ON GROIN AND UNDER RIGHT BREAST ONCE DAILY NEEDED APPLY TO RASH ON GROIN AND UNDER RIGHT B REAST ONCE DAILY NEEDED SOLD: 12/12/2019 [facility] 31 gauge x 5/16" 08/11/2018 12:00:00 AM EST needle 30 USE 1 DAILY USE 1 DAILY SOLD: 07/30/2019 [facility] Insurance Providers Payer name Policy type / Coverage type Policy ID Covered alliance party ID Covered alliance party's relationship to nicholas Policy Nicholas Plan Information [facility] [employer] [id number] [facility] [employer] [id number] MEDICARE [id number] SP [id number] [employer] [facility] [id number] SP [id number] [employer] HE[employer] C[facility] [id number] SP [id number] [employer] [facility] [id number] MEDICARE [id number] SP [id number] [employer] [facility] [facility] [id number] 80 [id number] [employer] [facility] C[facility] [id number] SP [id number] MEDICARE C [id number] S [id number] P HEALTH CARE O [id number] S [id number] [facility] [id number] SP [id number] P H [id number] Self [id number] P HEALTH CARE [id number] SP [id number] Ghi Medigap Part B [id number] Family Dependent [id number] MVP Hmo - In Network Health Maintenance Organization (HMO) [id number] Self [id number] o [employer] Health Maintenance Organization (HMO) [id number] Self [id number] MVP Healthcare Commercial [id number] 80 [id number] [employer] [facility] C[facility] [id number] 80 [id number] P HEALTH CARE [id number] SP [id number] P HEALTH CARE [id number] SP [id number] MEDICARE A [id number] Self [id number] [facility] [id number] SP 80 [id number] [facility] [id number] [id number] [facility] Health Maintenance Organization (HMO) [id number] Family Dependent [id number] [facility] [id number] SP [id number] MV Health Maintenance Organization (HMO) [id number] Self [id number] [facility] Health Maintenance Organization (HMO) Self o Blue Health Maintenance Organization (HMO) Se lf MVP Healthcare Commercial MVP Hmo - In Network Health Maintenance Organization (HMO) Self Ghi Medigap Part B Family Dependent MVP Exchange Hmo Commercial Family Dependent JIN CRUZ [id number] HU2 [id number] MVP Hmo/Pos Health Maintenance Organization (HMO) Self [id number] Problems, Conditions, and Diagnoses Code Display Name Description Problem Type Effective Dates Data Source(s) 55861490 Diarrhea Diarrhea Problem 09/04/2020 12:00:00 AM ES T MED[facility] ([facility]) A04.72 [id number] Clostridium difficile colitis Problem 02/09/2020 12:00:00 AM EDT eCW1 ([facility]) 73400166 Sinus node dysfunction Sinus node dysfunction Problem 02/08/2020 12:00:00 AM EDT MED[facility] ([facility]) 474762898 Cardiac pacemaker in situ Cardiac pacemaker in situ Pr oblem 02/08/2020 12:00:00 AM EDT [facility] ([facility]) R19.7 [id number] Diarrhea of presumed infectious origin Pr oblem 01/03/2020 12:00:00 AM EDT eCW1 ([facility]) R20.2 99896986 Paresthesia of skin Problem 12/08/2019 12:00 :00 AM EDT eCW1 ([facility]) R20.2 40394084 Paresthesia of skin Problem 12/08/2019 12:00 :00 AM EDT eCW1 ([facility]) Surgeries/Procedures Procedure Description Date Indications Data Source(s) ARTHROCENTESIS ASPIR&/INJECTION MAJOR JT/BURSA 020 12:00:00 AM EDT [facility] ([facility] ) ECHO TTHRC R-T 2D W/WOM-MODE COMPL SPEC&COLR DOP 03/19 12:00:00 AM EDT MED[facility] ([facility]) INTERROGATION EVAL IN PERSON 1/DUAL/SPINNING AND WINDING SUPERVISOR LEAD PM 2019 12:00:00 AM EDT MED[facility] ([facility]) INTERROGATION EVAL F2F 1/DUAL/SPINNING AND WINDING SUPERVISOR LEADS CVDFB 02/23/20 20 12:00:00 AM EDT MED[facility] ([facility]) ECG ROUTINE ECG W/LEAST 12 LDS W/I&R 02/08/2020 12:00: 00 AM EDT MED[facility] ([facility]) ARTHROCENTESIS ASPIR&/INJECTION MAJOR JT/BURSA 020 12:00:00 AM EDT MED[facility] ([facility]) RADEX SHOULDER COMPLETE MINIMUM 2 VIEWS 12/26/2019 12: 00:00 AM EDT [facility] ([facility]) RADEX SHOULDER COMPLETE MINIMUM 2 VIEWS 12/26/2019 12: 00:00 AM EDT MED[facility] ([facility] ) PHYSICIAN TELEPHONE EVALUATION 11-20 MIN 12/08/2019 12 :00:00 AM EDT eCW1 ([facility]) INTERROGATION EVAL REMOTE </90 D 1/2/SPINNING AND WINDING SUPERVISOR LEAD PM 11/20 12:00:00 AM EDT MED[facility] ([facility]) INTERROGATION REMOTE </90 D QUILL STRIPPER REVIEW 11/21/19 12:00:00 AM EDT MED[facility] ([facility]) INTERROGATION EVAL REMOTE </90 D 1/2/SPINNING AND WINDING SUPERVISOR LEAD PM 08/22 12:00:00 AM EST [facility] ([facility]) INTERROGATION REMOTE </90 D QUILL STRIPPER REVIEW 08/22/19 12:00:00 AM EST MED[facility] ([facility]) Results ID Date Data Source [id number] 09/06/2020 10:00:00 AM [facility] Name Value Range Interpretation Code Description Data Shruti rce(s) Supporting Document(s) SARS coronavirus 2 RNA Not Detected [facility] [place] This lab was ordered by [facility] and reported by [facility]. ID Date Data Source Clostridium Difficile By PCR 09/01/2020 12:00:00 AM EST eCW1 ([facility]) Name Value Range Interpretation Code Description Data Shruti rce(s) Supporting Document(s) NEGATIVE NEGATIVE CLOSTRIDIUM DIFFICILE PCR eCW1 ([facility]) PRESUMPTIVE NEGATIVE NEGATIVE NAP1 027 FOR CD IFF PCR eCW1 ([facility]) ID Date Data Source [id number] 07/06/2020 03:37:00 PM EST MEDENT ([facility]) Name Value Range Interpretation Code Description Data Shruti rce(s) Supporting Document(s) Free [place] Light Chains Serum 17.3 mg/L 3.3-19.4 MEDENT ([facility]) Free Lambda Light Chains Serum 15.8 mg/L 5.7-26.3 [facility] ([facility]) [place]/Lambda Ratio Serum 1.09 0.26-1.65 MEDEN T ([facility]) Performed at: RN - [facility] [address] [id number] City Auditor: Jana Barbosa MD, Phone: [phone] ID Date Data Source [id number] 07/06/2020 03:37:00 PM EST MED[facility] ([facility]) Name Value Range Interpretation Code Description Data Shruti rce(s) Supporting Document(s) Albumin % 58.5 % 55.8-66.1 [facility]) Veafa-0-Udpzfkrf % 5.5 % 2.9-4.9 [facility] Cuidy-2-Bweclbtsg % 10.7 % 7.1-11.8 [facility] Uuyi-9-Nwjlqyocm % 6.2 % 3.2-6.5 [facility] ([facility]) Gamma Globulin % 11.6 % 11.1-18.8 [facility] ([facility]) Ivpt-4-Ggfawfxkm % 7.5 % 4.7-7.2 [facility] ([facility] Zphbj-9-Qksaxebei 0.36 GM/DL 0.17-0.41 [facility] Yzarq-5-Lsperuuvf 0.70 GM/DL 0.42-0.99 [facility] Albumin 3.80 GM/DL 3.29-5.55 [facility] ([facility]) Kogj-5-Qzgnrxhvb 0.40 GM/DL 0.19-0.55 MED[facility] ([facility]) Gamma Globulins 0.75 GM/DL 0.65-1.58 [facility] ([facility]) Ueiq-7-Jhtkvmzup 0.49 GM/DL 0.28-0.60 [facility] ([facility]) Laboratory test finding (navigational concept) Laboratory test result MED[facility] ([facility]) REV'D BY O LORENZAAPRANI Spep Interpretation Laboratory test result MED[facility] ([facility]) NO M-SPIKE(S)NOTED. Total Protein 6.5 GM/DL 6.4-8.2 [facility] ID Date Data Source [id number] 07/06/2020 03:37:00 PM EST [facility] Name Value Range Interpretation Code Description Data Shruti rce(s) Supporting Document(s) It Serum Interpretation Laboratory test result [facility] NO MONOCLONAL BANDS NOTED. Laboratory test finding (navigational concept) Laboratory test result [facility] REV'D BY O ETELVINAONG ID Date Data Source [id number] 07/06/2020 03:37:00 PM EST [facility] ([facility]) Name Value Range Interpretation Code Description Data Shruti rce(s) Supporting Document(s) Immunoglobulin A 190.0 mg/dL 70-400 [facility] ([facility]) Immunoglobulin G 732 mg/dL [phone] [facility] ([facility]) Immunoglobulin M 41.3 mg/dL 40-230 [facility] ([facility]) ID Date Data Source [id number] 07/06/2020 03:37:00 PM EST [facility] ([facility]) Name Value Range Interpretation Code Description Data Shruti rce(s) Supporting Document(s) Blood Urea Nitrogen 14 mg/dL 7-18 [facility] ([facility]) Creatinine For GFR 1.25 mg/dL 0.55-1.30 [facility] ([facility]) Glucose, Fasting 199 mg/dL 70-100 [facility] ([facility]) Glomerular Filtration Rate 44.7 [facility] <content>Units are mL/min/1.73 m2</content>
<content></content>
<content>Chronic Kidney Disease Staging per NKF:</content>
<content></content>
<content>Stage I & II GFR >=60 Normal to Mildly Decreased</content>
<content>Stage III GFR 30- 59 Moderately Decreased</content>
<content>Stage IV GFR 15-29 Severely Decreased</content>
<content>Stage V GFR <15 Very Little GFR Left</content>
<content>ESRD GFR <15 on INSERT OPERATOR</content>
<content></content> Sodium Level 135 meq/L 136-145 [facility] ([facility]) Potassium Serum 3.9 meq/L 3.5-5.1 MED[facility] ([facility]) Carbon Dioxide Level 28 meq/L 21-32 [facility] ([facility]) Chloride Level 100 meq/L 98-107 [facility] ([facility]) Anion Gap 7 meq/L 8-16 [facility]) Ast/Sgot 10 U/L 7-37 [facility] ([facility]) Alt/SGPT 24 U/L 12-78 [facility] ([facility]) Calcium Level 10.8 mg/dL 8.8-10.2 [facility] ([facility]) Total Protein 6.9 GM/DL 6.4-8.2 [facility] ([facility]) Bilirubin,Total 0.5 mg/dL 0.2-1.0 [facility] ([facility]) Alkaline Phosphatase 107 U/L 45-117 [facility] ([facility]) Albumin 3.3 GM/DL 3.2-5.2 [facility] ([place] [facility]) Albumin/Globulin Ratio 0.9 1.2-2.2 [facility] ([facility]) ID Date Data Source [id number] 07/06/2020 03:37:00 PM EST [facility] ([facility]) Name Value Range Interpretation Code Description Data Shruti rce(s) Supporting Document(s) White Blood Count 11.6 10 4.0-10.0 [facility] ([facility]) Red Blood Count 4.27 10 4.00-5.40 [facility] ([facility]) Hemoglobin 13.2 g/dL 12.0-15.5 [facility] ([facility]) Mean Corpuscular Hemoglobin 30.9 pg 27.0-33.0 ME DENT ([facility]) Mean Corpuscular Volume 97.0 fl 80.0-96.0 [facility] ([facility]) Hematocrit 41.4 % 36.0-47.0 [facility]) Platelet Count, Automated 225 10 150-450 MEDE NT ([facility]) Red Cell Distribution Width 15.1 % 11.5-14.5 ME [facility] ([facility]) Mean Corpuscular HGB Conc 31.9 g/dL 32.0-36.5 MEDE NT ([facility]) [place] % 6.2 % 0.0-5.0 [facility]) Lymph % 14.8 % 24.0-44.0 [facility]) Neutrophils % 76.0 % 36.0-66.0 [facility] ([facility]) Baso % 0.5 % 0.0-1.0 [facility]) Eos % 1.3 % 0.0-3.0 [facility]) Immature Granulocyte % 1.2 % 0-3.0 [facility] ([facility]) Neutrophils # 8.8 10 1.5-8.5 [facility] ([facility]) Nucleated Red Blood Cell % 0.0 % 0-0 [facility] ([facility]) [place] # 0.7 10 0.0-0.8 [facility]) Lymph # 1.7 10 1.5-5.0 [facility]) Eos # 0.2 10 0.0-0.5 [facility]) Baso # 0.1 10 0.0-0.2 [facility]) ID Date Data Source [id number] 07/03/2020 07:54:00 AM EST [facility] ([facility]) Name Value Range Interpretation Code Description Data Shruti rce(s) Supporting Document(s) Thyrotropin [Units/volume] in Serum or Plasma by Detec tion limit <= 0.05 mIU/L 1.70 uIU/mL 0.36-3.74 [facility] ([facility] ) ID Date Data Source [id number] 07/03/2020 07:54:00 AM EST [facility] ([facility]) Name Value Range Interpretation Code Description Data Shruti rce(s) Supporting Document(s) Cholesterol [Mass/volume] in Serum or Plasma 221 mg/dL 131-200 [facility] ([facility]) Triglyceride [Mass/volume] in Serum or Plasma 381 mg/dL 30-150 [facility] ([facility]) Cholesterol in HDL [Mass/volume] in Serum or Plasma 40 mg/dL 35-60 [facility] ([facility]) Cholesterol in LDL [Mass/volume] in Serum or Plasma by calcu lation 105 CALC 50-159 [facility] ID Date Data Source [id number] 07/03/2020 07:54:00 AM EST [facility] Name Value Range Interpretation Code Description Data Shruti rce(s) Supporting Document(s) Glucose [Mass/volume] in Serum or Plasma 130 mg/dL 74-99 [facility] ([facility]) 100-125 mg/dL PRE-DIABETES/FASTING >126 mg/dL DIABETES/FASTING Urea nitrogen [Mass/volume] in Serum or Plasma 14 mg/dL 7-18 [facility] ([facility]) Potassium [Moles/volume] in Serum or Plasma 3.8 meq/L 3.5-5.1 [facility] ([facility]) Creatinine 0.9 mg/dL 0.6-1.3 [facility] ([facility]) Sodium [Moles/volume] in Serum or Plasma 137 meq/L 136-145 [facility] ([facility]) Calcium [Mass/volume] in Serum or Plasma 9.5 mg/dL 8.5-10.1 [facility] ([facility]) Carbon dioxide, total [Moles/volume] in Serum or Plasma 29 meq/L 21 -32 [facility] ([facility]) Chloride [Moles/volume] in Serum or Plasma 99 meq/L 98-107 [facility] ([facility]) Alkaline phosphatase isoenzyme [Units/volume] in Serum or Pl asma 103 mg/dL 46-116 [facility] ([facility]) Aspartate aminotransferase [Enzymatic activity/volume] in Serum or Plasma 14 U/L 15-37 [facility] ([facility] ) Alanine aminotransferase [Enzymatic activity/volume] in Seru m or Plasma 27 U/L 12-78 [facility] ([facility]) Total Bilirubin 0.6 mg/dL 0.2-1.0 [facility] A/G Ratio 1.06 CALC 1.00-1.90 [facility] Proteinase 3 Ab [Units/volume] in Serum 6.4 g/dL 6.4-8.2 [facility]) Albumin [Mass/volume] in Serum or Plasma 3.3 g/dL 3.4-5.0 [facility] ([facility]) Glomerular filtration rate/1.73 sq M pre dicted among blacks [Volume Rate/Area] in Serum or Plasma by Creatinine-based formula (MDRD) Laboratory test result [facility] [facility] <content>CHRONIC KIDNEY DISEASE STAGING PER NKF</content>
<content></content>
<content>STAGE I & II GFR >= 60 NORMAL TO MILDLY DECREASED</content>
<content>STAGE III GFR 30-59 MODERATELY DECREASED</content>
<content>STAGE IV GFR 15-29 SEVERELY DECREASED</content>
<content>STAGE V GFR <15 VERY LITTLE GFR LEFT</content>
<content>ESRD GFR <15 ON INSERT OPERATOR</content>
<content></content> Glomerular filtration rate/1.73 sq M pre dicted among non-blacks [Volume Rate/Area] in Serum or Plasma by Creatinine-based formula (MDRD) Laboratory test result [facility] ([facility] ) ID Date Data Source [id number] 07/03/2020 07:54:00 AM EST [facility] [facility] ([facility]) Name Value Range Interpretation Code Description Data Shruti rce(s) Supporting Document(s) Hemoglobin A1c/Hemoglobin.total in Blood 7.7 % [facility] ([facility]) Lab Result Notes: Pre-Diabetes 5.7 - 6.4 % Diabetes = or > 6.5% Glucose mean value [Mass/volume] in Blood Estimated fr om glycated hemoglobin 174 mg/dL 60-110 [facility] ([facility] ) ID Date Data Source [id number] 07/03/2020 07:54:00 AM EST [facility] ([facility]) Name Value Range Interpretation Code Description Data Shruti rce(s) Supporting Document(s) Leukocytes [#/volume] in Blood by Automated count 9.9 x10*3/UL 4.1-10 .9 [facility] [facility] Hemoglobin [Mass/volume] in Blood 14.3 g/dL 12.0-18.0 [facility] [facility] Hematocrit [Volume Fraction] of Blood by Automated count 41.7 % 3 7.0-51.0 [facility] [facility] Erythrocytes [#/volume] in Blood by Automated count 4.50 x10*6/UL 4.2 0-6.30 [facility] ([facility]) MCH 31.8 pg 26.0-32.0 [facility] ([place] [facility]) MCV 92.5 fL 80.0-97.0 [facility] ([place] [facility]) MCHC 34.4 g/dL 31.0-38.0 [facility] ([facility] [place]) Erythrocyte distribution width [Ratio] by Automated count 14.3 % 11.6-13.7 [facility] ([facility]) MPV 7.8 FL 7.8-11.0 [facility] [place]) Platelets [#/volume] in Blood by Automated count 191 x10*3/UL 140-440 [facility] ([facility]) Mid % 5.0 % 1.7-9.3 [facility] ([place] [facility]) Neut % 78.9 % 37.0-92.0 [facility] ([place] [facility]) Lymph % 16.1 % 10.0-58.5 [facility] ([place] [facility]) Mid # 0.5 x10*3/UL 0.1-0.6 [facility] ([facility]) Neut # 7.8 x10*3/UL 2.0-7.8 [facility] ([facility]) Lymph # 1.6 x10*3/UL 0.6-4.1 [facility] ([facility]) ID Date Data Source [id number] 07/03/2020 07:54:00 AM EST [facility] ([facility]) Name Value Range Interpretation Code Description Data Shruti rce(s) Supporting Document(s) Hemoglobin A1c/Hemoglobin.total in Blood Laboratory test result [facility] ([facility]) ID Date Data Source [id number] 05/16/2020 03:15:00 PM EDT [facility] ([facility]) Name Value Range Interpretation Code Description Data Shruti rce(s) Supporting Document(s) Albumin % 59.5 % 55.8-66.1 [facility] ([place] [facility]) Qviaz-8-Zekqefubz % 11.6 % 7.1-11.8 [facility] Mtvpm-9-Uakrxaaf % 5.4 % 2.9-4.9 [facility] ([facility] Qgtr-1-Tmbbwnqvv % 7.3 % 4.7-7.2 [facility] ([facility]) Albumin 3.81 GM/DL 3.29-5.55 [facility] ([place] [facility]) Dmgl-5-Bnripopic % 6.3 % 3.2-6.5 [facility] ([facility] Gamma Globulin % 9.9 % 11.1-18.8 [facility] ([facility]) Pcdtx-7-Uxgjzdutj 0.35 GM/DL 0.17-0.41 [facility] ([facility] Oxho-0-Kvxkgblzf 0.47 GM/DL 0.28-0.60 [facility] ([facility] Tvnke-0-Fovdkcxru 0.74 GM/DL 0.42-0.99 [facility] ([facility] Gamma Globulins 0.63 GM/DL 0.65-1.58 [facility] ([facility]) Total Protein 6.4 GM/DL 6.4-8.2 [facility] ([place] [facility]) Yhnt-4-Fhvkxgywb 0.40 GM/DL 0.19-0.55 [facility] ([facility]) Laboratory test finding (navigational concept) Laboratory test result [facility] ([facility]) REV'D BY Freya Hugop Interpretation Laboratory test result [facility] ([facility]) HYPOGAMMAGLOBULINEMIA. SUGGEST SERUM AND URINE IMMUNOTYPING. ID Date Data Source [id number] 05/16/2020 03:15:00 PM EDT [facility] ([facility]) Name Value Range Interpretation Code Description Data Shruti rce(s) Supporting Document(s) Laboratory test finding (navigational concept) Laboratory test result [facility] ([facility]) REV'D BY rFeya NELSON It Serum Interpretation Laboratory test result [facility] ([facility]) NO MONOCLONAL BANDS NOTED. ID Date Data Source [id number] 05/16/2020 03:15:00 PM EDT [facility] ([facility]) Name Value Range Interpretation Code Description Data Shruti rce(s) Supporting Document(s) Immunoglobulin A 178.0 mg/dL 70-400 [facility] ([facility]) Immunoglobulin G 633 mg/dL 681-1648 [facility] ([facility]) Immunoglobulin M 35.9 mg/dL 40-230 [facility] ([facility]) ID Date Data Source [id number] 05/16/2020 03:15:00 PM EDT [facility] ([facility]) Name Value Range Interpretation Code Description Data Shruti rce(s) Supporting Document(s) White Blood Count 11.8 10 4.0-10.0 [facility]) Red Blood Count 4.38 10 4.00-5.40 [facility]) Hemoglobin 14.0 g/dL 12.0-15.5 [facility] ([facility]) Hematocrit 43.3 % 36.0-47.0 [facility]) Mean Corpuscular Volume 98.9 fl 80.0-96.0 [facility] ([facility]) Mean Corpuscular Hemoglobin 32.0 pg 27.0-33.0 [place] [facility] ([facility]) Red Cell Distribution Width 14.8 % 11.5-14.5 [place] [facility] ([facility]) Mean Corpuscular HGB Conc 32.3 g/dL 32.0-36.5 [facility] ([facility]) Platelet Count, Automated 198 10 150-450 [facility] ([facility]) Lymph % 13.8 % 24.0-44.0 [facility] ([place] [facility]) [place] % 6.6 % 0.0-5.0 [facility] ([place] [facility]) Neutrophils % 76.7 % 36.0-66.0 [facility] ([facility]) Baso % 0.5 % 0.0-1.0 [facility] ([place] [facility]) Immature Granulocyte % 1.8 % 0-3.0 [facility] ([facility]) Eos % 0.6 % 0.0-3.0 [facility] ([place] [facility]) Nucleated Red Blood Cell % 0.0 % 0-0 [facility] ([facility]) Lymph # 1.6 10 1.5-5.0 [facility] ([place] [facility]) Neutrophils # 9.1 10 1.5-8.5 [facility] ([facility]) Eos # 0.1 10 0.0-0.5 [facility] ([place] [facility]) [place] # 0.8 10 0.0-0.8 [facility] ([place] [facility]) Baso # 0.1 10 0.0-0.2 [facility] ([place] [facility]) ID Date Data Source [id number] 05/16/2020 03:15:00 PM EDT [facility] ([facility]) Name Value Range Interpretation Code Description Data Shruti rce(s) Supporting Document(s) Blood Urea Nitrogen 14 mg/dL 7-18 [facility] ([facility]) Glucose, Fasting 189 mg/dL 70-100 [facility] ([facility]) Glomerular Filtration Rate 56.6 [facility] ([facility]) <content>Units are mL/min/1.73 m2</content>
<content></content>
<content>Chronic Kidney Disease Staging per NKF:</content>
<content></content>
<content>Stage I & II GFR >=60 Normal to Mildly Decreased</content>
<content>Stage III GFR 30- 59 Moderately Decreased</content>
<content>Stage IV GFR 15-29 Severely Decreased</content>
<content>Stage V GFR <15 Very Little GFR Left</content>
<content>ESRD GFR <15 on INSERT OPERATOR</content>
<content></content> Sodium Level 136 meq/L 136-145 [facility] ([facility]) Creatinine For GFR 1.02 mg/dL 0.55-1.30 [facility] ([facility]) Chloride Level 101 meq/L 98-107 [facility] ([facility]) Carbon Dioxide Level 30 meq/L 21-32 [facility] ([facility]) Potassium Serum 4.0 meq/L 3.5-5.1 [facility] ([facility]) Calcium Level 10.0 mg/dL 8.8-10.2 [facility] ([facility]) Ast/Sgot 11 U/L 7-37 [facility] ([place] [facility]) Anion Gap 5 meq/L 8-16 [facility] ([place] [facility]) Alkaline Phosphatase 110 U/L 45-117 [facility] ([facility]) Bilirubin,Total 0.5 mg/dL 0.2-1.0 [facility] ([facility]) Alt/SGPT 24 U/L 12-78 [facility] ([place] [facility]) Total Protein 6.8 GM/DL 6.4-8.2 [facility] ([facility]) Albumin 3.2 GM/DL 3.2-5.2 [facility] ([place] [facility]) Albumin/Globulin Ratio 0.9 1.2-2.2 [facility] ([facility]) ID Date Data Source [id number] 03/09/2020 05:05:00 PM EDT [facility] Name Value Range Interpretation Code Description Data Shruti rce(s) Supporting Document(s) Free [place] Lt Chains,S 17.6 mg/L 3.3-19.4 [facility] Free Lambda Lt Chains,S 16.0 mg/L 5.7-26.3 [facility] [place]/Lambda Ratio,S 1.10 0.26-1.65 [facility] ID Date Data Source [id number] 03/07/2020 03:20:00 PM EDT [facility] ([facility]) Name Value Range Interpretation Code Description Data Shruti rce(s) Supporting Document(s) Free [place] Light Chains Serum Laboratory test result [facility] ([facility]) SEE SEPARATE REPORT Testing performed at reference lab . Report copy to follow on a separate form. 04/17/20 REF LAB#:[id number] [place]/Lambda Ratio Serum Laboratory test result [facility] ([facility]) SEE SEPARATE REPORT Free Lambda Light Chains Serum Laboratory test result [facility] ([facility]) SEE SEPARATE REPORT ID Date Data Source [id number] 03/07/2020 03:20:00 PM EDT [facility] ([facility]) Name Value Range Interpretation Code Description Data Shruti rce(s) Supporting Document(s) Red Blood Count 4.18 10 4.00-5.40 [facility] ([facility]) White Blood Count 12.4 10 4.0-10.0 [facility] ([facility]) Mean Corpuscular Volume 98.8 fl 80.0-96.0 [facility] ([facility]) Hemoglobin 13.5 g/dL 12.0-15.5 [facility] [facility]) Hematocrit 41.3 % 36.0-47.0 [facility] [facility]) Mean Corpuscular Hemoglobin 32.3 pg 27.0-33.0 [place] [facility] ([facility]) Mean Corpuscular HGB Conc 32.7 g/dL 32.0-36.5 [facility] ([facility]) Red Cell Distribution Width 15.5 % 11.5-14.5 [facility] [facility] ([facility]) Platelet Count, Automated 229 10 150-450 [facility] ([facility]) Neutrophils % 80.3 % 36.0-66.0 [facility] ([facility]) [place] % 6.1 % 0.0-5.0 [facility] [facility] Lymph % 11.4 % 24.0-44.0 [facility] [facility] Immature Granulocyte % 1.3 % 0-3.0 [facility] ([facility]) Baso % 0.2 % 0.0-1.0 [facility] [facility] Eos % 0.7 % 0.0-3.0 [facility] [facility] Lymph # 1.4 10 1.5-5.0 [facility] [facility] Neutrophils # 9.9 10 1.5-8.5 [facility] ([facility]) Nucleated Red Blood Cell % 0.0 % 0-0 [facility] ([facility]) [place] # 0.8 10 0.0-0.8 [facility] [facility] Eos # 0.1 10 0.0-0.5 [facility] [facility] Baso # 0.0 10 0.0-0.2 [facility] [facility] ID Date Data Source [id number] 03/07/2020 03:20:00 PM EDT [facility] ([facility]) Name Value Range Interpretation Code Description Data Shruti rce(s) Supporting Document(s) Glucose, Fasting 216 mg/dL 70-100 [facility] ([facility]) Glomerular Filtration Rate 59.4 [facility] ([facility]) <content>Units are mL/min/1.73 m2</content>
<content></content>
<content>Chronic Kidney Disease Staging per NKF:</content>
<content></content>
<content>Stage I & II GFR >=60 Normal to Mildly Decreased</content>
<content>Stage III GFR 30- 59 Moderately Decreased</content>
<content>Stage IV GFR 15-29 Severely Decreased</content>
<content>Stage V GFR <15 Very Little GFR Left</content>
<content>ESRD GFR <15 on INSERT OPERATOR</content>
<content></content> Blood Urea Nitrogen 13 mg/dL 7-18 [facility] ([facility]) Creatinine For GFR 0.98 mg/dL 0.55-1.30 [facility] ([facility]) Potassium Serum 3.9 meq/L 3.5-5.1 [facility] ([facility]) Sodium Level 142 meq/L 136-145 [facility] ([facility]) Carbon Dioxide Level 26 meq/L 21-32 [facility] ([facility]) Chloride Level 107 meq/L 98-107 [facility] ([facility]) Calcium Level 9.0 mg/dL 8.8-10.2 [facility] ([facility]) Anion Gap 9 meq/L 8-16 [facility] ([place] [facility]) Ast/Sgot 13 U/L 7-37 [facility] ([place] [facility]) Alkaline Phosphatase 112 U/L 45-117 [facility] ([facility]) Alt/SGPT 22 U/L 12-78 [facility] ([place] [facility]) Bilirubin,Total 0.5 mg/dL 0.2-1.0 [facility] ([facility]) Total Protein 6.5 GM/DL 6.4-8.2 [facility] ([facility]) Albumin/Globulin Ratio 1.0 1.2-2.2 [facility] ([facility]) Albumin 3.3 GM/DL 3.2-5.2 [facility] ([place] [facility]) ID Date Data Source [id number] 03/07/2020 03:20:00 PM EDT [facility] ([facility]) Name Value Range Interpretation Code Description Data Shruti rce(s) Supporting Document(s) Immunoglobulin G 628 mg/dL 681-1648 [facility] ([facility]) Immunoglobulin A 162.0 mg/dL 70-400 [facility] ([facility]) Immunoglobulin M 35.5 mg/dL 40-230 [facility] ([facility]) ID Date Data Source [id number] 03/07/2020 03:20:00 PM EDT [facility] ([facility]) Name Value Range Interpretation Code Description Data Shruti rce(s) Supporting Document(s) Albumin % Laboratory test result 55.8-66.1 [facility] ([facility]) Nmmu-7-Lwcrpsyuq % Laboratory test result 4.7-7.2 [facility] ([facility]) Uvdbk-0-Zzwgghvy % Laboratory test result 2.9-4.9 [facility] ([facility]) Llvnc-4-Eoiqwftem % Laboratory test result 7.1-11.8 [facility] ([facility]) Gamma Globulin % Laboratory test result 11.1-18.8 [facility] ([facility]) Ikrp-5-Zfftshwyd % Laboratory test result 3.2-6.5 [facility] ([facility]) Albumin Laboratory test result 3.29-5.55 [facility] [facility] Test not performed. Please resubmit wit h new order and sample. Vajqr-9-Sgldvqlbu Laboratory test result 0.17-0.41 [facility] ([facility]) Zyzva-2-Yzwwazoxx Laboratory test result 0.42-0.99 [facility] ([facility]) Fmje-3-Tnomrpptp Laboratory test result 0.28-0.60 [facility] ([facility]) Yuna-3-Quzccsmgz Laboratory test result 0.19-0.55 [facility] ([facility]) Gamma Globulins Laboratory test result 0.65-1.58 [facility] [facility] Total Protein 6.5 GM/DL 6.4-8.2 [facility] ([facility]) --- 05/06/20 0648 --- TOTAL PROTEIN previously reported as: Test not performed GM/DL Spep Interpretation Laboratory test result [facility] ([facility]) Laboratory test finding (navigational concept) Laboratory test result [facility] ([facility]) ID Date Data Source [id number] 03/02/2020 09:47:00 AM EDT [facility] ([facility]) Name Value Range Interpretation Code Description Data Shruti rce(s) Supporting Document(s) Thyrotropin [Units/volume] in Serum or Plasma by Detec tion limit <= 0.05 mIU/L 3.89 uIU/mL 0.36-3.74 [facility] ([facility] ) ID Date Data Source [id number] 03/02/2020 09:47:00 AM EDT [facility] ([facility]) Name Value Range Interpretation Code Description Data Shruti rce(s) Supporting Document(s) Glucose [Mass/volume] in Serum or Plasma 147 mg/dL 74-99 [facility] ([facility]) 100-125 mg/dL PRE-DIABETES/FASTING >126 mg/dL DIABETES/FASTING Creatinine 1.3 mg/dL 0.6-1.3 [facility] ([facility]) Urea nitrogen [Mass/volume] in Serum or Plasma 20 mg/dL 7-18 [facility] ([facility]) Sodium [Moles/volume] in Serum or Plasma 138 meq/L 136-145 [facility] ([facility]) Potassium [Moles/volume] in Serum or Plasma 4.5 meq/L 3.5-5.1 [facility] ([facility]) Carbon dioxide, total [Moles/volume] in Serum or Plasma 29 meq/L 21 -32 [facility] ([facility]) Chloride [Moles/volume] in Serum or Plasma 99 meq/L 98-107 [facility] ([facility]) Calcium [Mass/volume] in Serum or Plasma 10.9 mg/dL 8.5-10.1 [facility] ([facility]) NOTE: RESULT VERIFIED. Alkaline phosphatase isoenzyme [Units/volume] in Serum or Pl asma 111 mg/dL 46-116 [facility] ([facility]) Total Bilirubin 0.5 mg/dL 0.2-1.0 [facility] ([facility]) Aspartate aminotransferase [Enzymatic activity/volume] in Serum or Plasma 14 U/L 15-37 [facility] ([facility] ) Alanine aminotransferase [Enzymatic activity/volume] in Seru m or Plasma 29 U/L 12-78 [facility] ([facility]) Albumin [Mass/volume] in Serum or Plasma 3.5 g/dL 3.4-5.0 [facility] ([facility]) Proteinase 3 Ab [Units/volume] in Serum 7.2 g/dL 6.4-8.2 [facility] ([facility]) Glomerular filtration rate/1.73 sq M pre dicted among non-blacks [Volume Rate/Area] in Serum or Plasma by Creatinine-based formula (MDRD) 40 mL/min [facility] ([facility]) A/G Ratio 0.95 CALC 1.00-1.90 [facility] ([place] [facility]) Glomerular filtration rate/1.73 sq M pre dicted among blacks [Volume Rate/Area] in Serum or Plasma by Creatinine-based formula (MDRD) 49 mL/min [facility] [facility] <content>CHRONIC KIDNEY DISEASE STAGING PER NKF</content>
<content></content>
<content>STAGE I & II GFR >= 60 NORMAL TO MILDLY DECREASED</content>
<content>STAGE III GFR 30-59 MODERATELY DECREASED</content>
<content>STAGE IV GFR 15-29 SEVERELY DECREASED</content>
<content>STAGE V GFR <15 VERY LITTLE GFR LEFT</content>
<content>ESRD GFR <15 ON INSERT OPERATOR</content>
<content></content> ID Date Data Source [id number] 03/02/2020 09:47:00 AM EDT [facility] ([facility]) Name Value Range Interpretation Code Description Data Shruti rce(s) Supporting Document(s) Glucose mean value [Mass/volume] in Blood Estimated fr om glycated hemoglobin 151 mg/dL 60-110 [facility] [facility] Hemoglobin A1c/Hemoglobin.total in Blood 6.9 g/dL 4.8-5.6 [facility] [facility] Lab Result Notes: Pre-Diabetes 5.7 - 6.4 % Diabetes = or > 6.5% ID Date Data Source [id number] 03/02/2020 09:47:00 AM EDT [facility] Name Value Range Interpretation Code Description Data Shruti rce(s) Supporting Document(s) Erythrocytes [#/volume] in Blood by Automated count 4.58 x10*6/UL 4.2 0-6.30 [facility] ([facility]) Leukocytes [#/volume] in Blood by Automated count 15.0 x10*3/UL 4.1-1 0.9 [facility] ([facility]) NOTE: RESULT VERIFIED. Hematocrit [Volume Fraction] of Blood by Automated count 41.7 % 3 7.0-51.0 [facility] ([facility]) MCV 90.9 fL 80.0-97.0 [facility] [facility] Hemoglobin [Mass/volume] in Blood 14.4 g/dL 12.0-18.0 [facility] ([facility]) MCHC 34.6 g/dL 31.0-38.0 [facility] [facility] MCH 31.4 pg 26.0-32.0 [facility] [facility] Erythrocyte distribution width [Ratio] by Automated count 14.5 % 11.6-13.7 [facility] ([facility]) MPV 7.4 FL 7.8-11.0 [facility] [facility] Platelets [#/volume] in Blood by Automated count 260 x10*3/UL 140-440 [facility] ([facility]) Neut % 78.3 % 37.0-92.0 [facility] [facility] Mid % 4.6 % 1.7-9.3 [facility] [facility] Lymph % 17.1 % 10.0-58.5 [facility] [facility] Lymph # 2.5 x10*3/UL 0.6-4.1 [facility] ([facility]) Neut # 11.7 x10*3/UL 2.0-7.8 [facility] ([facility]) Mid # 0.8 x10*3/UL 0.1-0.6 [facility] ([facility]) ID Date Data Source [id number] 02/06/2020 02:55:00 PM EDT [facility] ([facility] Name Value Range Interpretation Code Description Data Shruti rce(s) Supporting Document(s) White Blood Count 13.4 4.0-10.0 [facility] ([facility]) Red Blood Count 4.68 4.00-5.40 [facility] ([facility]) Platelets 214 150-450 [facility] Hemoglobin 14.3 [facility] ([facility]) Hematocrit 44.5 [facility] ([facility]) ID Date Data Source [id number] 02/06/2020 02:55:00 PM EDT [facility] ([facility] Name Value Range Interpretation Code Description Data Shruti rce(s) Supporting Document(s) Albumin [Mass/volume] in Serum or Plasma 3.4 [facility] ([facility]) Carbon dioxide, total [Moles/volume] in Serum or Plasma 28 [facility] ([facility]) Calcium [Mass/volume] in Serum or Plasma 10.5 [facility] ([facility]) Alanine aminotransferase [Enzymatic activity/volume] in Serum or Pl asma 30 [facility] ([facility]) Alkaline phosphatase [Enzymatic activity/volume] in Serum or Plasma 1 17 [facility] ([facility]) Protein [Mass/volume] in Serum or Plasma 6.7 [facility] ([facility]) Chloride [Moles/volume] in Serum or Plasma 102 [facility] ([facility]) Potassium [Moles/volume] in Serum or Plasma 4.2 [facility] ([facility]) Aspartate aminotransferase [Enzymatic activity/volume] in Serum or Plasma 19 [facility] ([facility]) Sodium 140 [facility] Glucose 185 70-100 [facility] Urea nitrogen [Mass/volume] in Serum or Plasma 14 [facility] [facility]) Creatinine For GFR 0.98 [facility] ([facility]) ID Date Data Source [id number] 02/06/2020 01:59:00 PM EDT [facility] ([facility]) Name Value Range Interpretation Code Description Data Shruti rce(s) Supporting Document(s) Albumin % 58.9 % 55.8-66.1 [facility] ([place] [facility]) Rphym-4-Giydclbi % 6.1 % 2.9-4.9 [facility] ([facility]) Hzwjo-2-Zqqlprfmr % 12.8 % 7.1-11.8 [facility] ([facility]) Gegw-2-Wffctzejn % 6.2 % 3.2-6.5 [facility] ([facility]) Lzlk-1-Zfsnczpor % 7.0 % 4.7-7.2 [facility] ([facility]) Albumin 3.95 GM/DL 3.29-5.55 [facility] ([place] [facility]) Gamma Globulin % 9.0 % 11.1-18.8 [facility] ([facility]) Qitzz-1-Rsjtveakn 0.41 GM/DL 0.17-0.41 [facility] ([facility]) Qobr-0-Mpoqdzoku 0.47 GM/DL 0.28-0.60 [facility] ([facility]) Cznn-3-Imlujrzip 0.42 GM/DL 0.19-0.55 [facility] ([facility]) Tsyds-6-Ibmwvoyzr 0.86 GM/DL 0.42-0.99 [facility] ([facility]) Total Protein 6.7 GM/DL 6.4-8.2 [facility] ([facility]) Gamma Globulins 0.60 GM/DL 0.65-1.58 [facility] ([facility]) Spep Interpretation Laboratory test result [facility] ([facility]) HYPOGAMMAGLOBULINEMIA. SUGGEST SERUM AND URINE IMMUNOTYPING. Laboratory test finding (navigational concept) Laboratory test result [facility] ([facility]) REV'D BY Mike LAN ID Date Data Source [id number] 02/06/2020 01:59:00 PM EDT [facility] ([facility]) Name Value Range Interpretation Code Description Data Shruti rce(s) Supporting Document(s) Immunoglobulin A 161.0 mg/dL 70-400 [facility] ([facility]) Immunoglobulin G 626 mg/dL 681-1648 [facility] ([facility]) Immunoglobulin M 31.9 mg/dL 40-230 [facility] ([facility]) ID Date Data Source [id number] 02/06/2020 01:59:00 PM EDT [facility] ([facility]) Name Value Range Interpretation Code Description Data Shruti rce(s) Supporting Document(s) Glucose, Fasting 185 mg/dL 70-100 [facility] ([facility]) Blood Urea Nitrogen 14 mg/dL 7-18 [facility] ([facility]) Glomerular Filtration Rate 59.4 MED ENT ([facility]) <content>Units are mL/min/1.73 m2</content>
<content></content>
<content>Chronic Kidney Disease Staging per NKF:</content>
<content></content>
<content>Stage I & II GFR >=60 Normal to Mildly Decreased</content>
<content>Stage III GFR 30- 59 Moderately Decreased</content>
<content>Stage IV GFR 15-29 Severely Decreased</content>
<content>Stage V GFR <15 Very Little GFR Left</content>
<content>ESRD GFR <15 on INSERT OPERATOR</content>
<content></content> Creatinine For GFR 0.98 mg/dL 0.55-1.30 [facility] ([facility]) Potassium Serum 4.2 meq/L 3.5-5.1 [facility] ([facility]) Sodium Level 140 meq/L 136-145 [facility] ([facility]) Chloride Level 102 meq/L 98-107 [facility] ([facility]) Anion Gap 10 meq/L 8-16 [facility] ([place] [facility]) Carbon Dioxide Level 28 meq/L 21-32 [facility] ([facility]) Ast/Sgot 19 U/L 7-37 [facility] ([place] [facility]) Calcium Level 10.5 mg/dL 8.8-10.2 [facility] ([facility]) Alkaline Phosphatase 117 U/L 45-117 [facility] ([facility]) Alt/SGPT 30 U/L 12-78 [facility] ([place] [facility]) Total Protein 6.7 GM/DL 6.4-8.2 [facility] ([facility]) Albumin 3.4 GM/DL 3.2-5.2 [facility] ([place] [facility]) Bilirubin,Total 0.5 mg/dL 0.2-1.0 [facility] ([facility]) Albumin/Globulin Ratio 1.0 1.2-2.2 [facility] ([facility]) ID Date Data Source [id number] 02/06/2020 01:59:00 PM EDT [facility] ([facility]) Name Value Range Interpretation Code Description Data Shruti rce(s) Supporting Document(s) Free [place] Light Chains Serum 14.3 mg/L 3.3-19.4 [facility] ([facility]) Free Lambda Light Chains Serum 12.8 mg/L 5.7-26.3 [facility] ([facility]) [place]/Lambda Ratio Serum 1.12 0.26-1.65 MEDEN T ([facility]) Performed at: RN - [facility] [address] [id number] City Auditor: Jana Barbosa MD, Phone: [phone] ID Date Data Source [id number] 02/06/2020 01:59:00 PM EDT [facility] ([facility]) Name Value Range Interpretation Code Description Data Shruti rce(s) Supporting Document(s) Hemoglobin 14.3 g/dL 12.0-15.5 [facility] ([facility]) Red Blood Count 4.68 10 4.00-5.40 [facility] ([facility]) White Blood Count 13.4 10 4.0-10.0 [facility] ([facility]) Mean Corpuscular Volume 95.1 fl 80.0-96.0 [facility] ([facility]) Hematocrit 44.5 % 36.0-47.0 [facility] Red Cell Distribution Width 14.9 % 11.5-14.5 [facility] ([facility]) Mean Corpuscular HGB Conc 32.1 g/dL 32.0-36.5 MEDE NT ([facility]) Mean Corpuscular Hemoglobin 30.6 pg 27.0-33.0 [facility] ([facility]) Platelet Count, Automated 214 10 150-450 MEDE NT ([facility]) Neutrophils % 79.0 % 36.0-66.0 [facility] ([facility]) Eos % 0.3 % 0.0-3.0 [facility] ([place] [facility]) Lymph % 12.8 % 24.0-44.0 [facility] ([place] [facility]) [place] % 5.8 % 0.0-5.0 [facility] ([place] [facility]) Immature Granulocyte % 1.7 % 0-3.0 [facility] ([facility]) Baso % 0.4 % 0.0-1.0 [facility] ([place] [facility]) Lymph # 1.7 10 1.5-5.0 [facility] [facility] Nucleated Red Blood Cell % 0.0 % 0-0 MED ENT ([facility]) Neutrophils # 10.6 10 1.5-8.5 [facility] ([facility]) Eos # 0.0 10 0.0-0.5 [facility] ([place] [facility]) [place] # 0.8 10 0.0-0.8 [facility] ([place] [facility]) Baso # 0.1 10 0.0-0.2 [facility] [facility] ID Date Data Source [id number] 01/02/2020 02:08:00 PM EDT [facility] ([facility]) Name Value Range Interpretation Code Description Data Shruti rce(s) Supporting Document(s) White Blood Count 20.1 10 4.0-10.0 [facility] ([facility]) Hematocrit 45.7 % 36.0-47.0 [facility] ([place] [facility]) Red Blood Count 4.82 10 4.00-5.40 [facility] ([facility]) Hemoglobin 14.4 g/dL 12.0-15.5 [facility] ([place] [facility]) Mean Corpuscular Volume 94.8 fl 80.0-96.0 [facility] ([facility]) Mean Corpuscular Hemoglobin 29.9 pg 27.0-33.0 [place] [facility] ([facility]) Mean Corpuscular HGB Conc 31.5 g/dL 32.0-36.5 MEDE NT ([facility]) Red Cell Distribution Width 15.7 % 11.5-14.5 [facility] ([facility]) Nucleated Red Blood Cell % 0.0 % 0-0 [facility] ([facility]) Platelet Count, Automated 302 10 150-450 MEDE NT ([facility]) ID Date Data Source [id number] 01/02/2020 02:08:00 PM EDT [facility] ([facility]) Name Value Range Interpretation Code Description Data Shruti rce(s) Supporting Document(s) [place] % 5.3 % 0.0-5.0 [facility] ([place] [facility]) Neutrophils % 82.0 % 36.0-66.0 [facility] ([facility]) Lymph % 9.6 % 24.0-44.0 [facility] ([place] [facility]) Eos % 0.2 % 0.0-3.0 [facility] ([place] [facility]) Baso % 0.5 % 0.0-1.0 [facility] ([place] [facility]) Immature Granulocyte % 2.4 % 0-3.0 [facility] ([facility]) Neutrophils # 16.5 10 1.5-8.5 [facility] ([facility]) Eos # 0.1 10 0.0-0.5 [facility] ([place] [facility]) [place] # 1.1 10 0.0-0.8 [facility] ([place] [facility]) Lymph # 1.9 10 1.5-5.0 [facility] ([place] [facility]) Baso # 0.1 10 0.0-0.2 [facility] [facility] ID Date Data Source [id number] 01/02/2020 02:08:00 PM EDT [facility] ([facility]) Name Value Range Interpretation Code Description Data Shruti rce(s) Supporting Document(s) Blood Urea Nitrogen 25 mg/dL 7-18 [facility] ([facility]) Glucose, Fasting 269 mg/dL 70-100 [facility] ([facility]) Sodium Level 135 meq/L 136-145 [facility] ([facility]) Creatinine For GFR 1.06 mg/dL 0.55-1.30 [facility] ([facility]) Glomerular Filtration Rate 54.2 [facility] ([place] [facility]) <content>Units are mL/min/1.73 m2</content>
<content></content>
<content>Chronic Kidney Disease Staging per NKF:</content>
<content></content>
<content>Stage I & II GFR >=60 Normal to Mildly Decreased</content>
<content>Stage III GFR 30- 59 Moderately Decreased</content>
<content>Stage IV GFR 15-29 Severely Decreased</content>
<content>Stage V GFR <15 Very Little GFR Left</content>
<content>ESRD GFR <15 on INSERT OPERATOR</content>
<content></content> Carbon Dioxide Level 29 meq/L 21-32 [facility] ([facility]) Potassium Serum 4.3 meq/L 3.5-5.1 [facility] ([facility]) Chloride Level 101 meq/L 98-107 [facility] ([facility]) Calcium Level 9.9 mg/dL 8.8-10.2 [facility] ([facility]) Anion Gap 5 meq/L 8-16 [facility] ([place] [facility]) Ast/Sgot 12 U/L 7-37 [facility] ([facility] [place]) Bilirubin,Total 0.4 mg/dL 0.2-1.0 [facility] ([facility]) Total Protein 6.8 GM/DL 6.4-8.2 [facility] ([facility]) Alt/SGPT 31 U/L 12-78 [facility] ([facility] [place]) Alkaline Phosphatase 116 U/L 45-117 [facility] ([facility]) Albumin/Globulin Ratio 0.9 1.2-2.2 [facility] ([facility]) Albumin 3.3 GM/DL 3.2-5.2 [facility] ([place] [facility]) ID Date Data Source [id number] 01/02/2020 02:08:00 PM EDT [facility] ([facility]) Name Value Range Interpretation Code Description Data Shruti rce(s) Supporting Document(s) Free [place] Light Chains Serum 11.0 mg/L 3.3-19.4 [facility] ([facility]) Free Lambda Light Chains Serum 8.9 mg/L 5.7-26.3 [facility] ([facility]) [place]/Lambda Ratio Serum 1.24 0.26-1.65 MEDEN T ([facility]) Performed at: RN - [facility] [address] [id number] City Auditor: Jana Barbosa MD, Phone: [phone] ID Date Data Source [id number] 01/02/2020 02:08:00 PM EDT [facility] ([facility]) Name Value Range Interpretation Code Description Data Shruti rce(s) Supporting Document(s) Immunoglobulin A 139.0 mg/dL 70-400 [facility] ([facility]) Immunoglobulin G 706 mg/dL 681-1648 [facility] ([facility]) Immunoglobulin M 30.5 mg/dL 40-230 [facility] ([facility]) ID Date Data Source [id number] 01/02/2020 02:08:00 PM EDT [facility] ([facility]) Name Value Range Interpretation Code Description Data Shruti rce(s) Supporting Document(s) Albumin % 62.9 % 55.8-66.1 [facility] ([place] [facility]) Tergh-5-Wnhtljvt % 4.3 % 2.9-4.9 [facility] ([facility]) Ftsgu-6-Fzxoexjgp % 10.6 % 7.1-11.8 [facility] ([facility]) Boid-4-Ntdjbsqyy % 7.1 % 4.7-7.2 [facility] ([facility]) Yvnd-4-Keskukcsv % 4.9 % 3.2-6.5 [facility] ([facility]) Gamma Globulin % 10.2 % 11.1-18.8 [facility] ([facility]) Albumin 4.09 GM/DL 3.29-5.55 [facility] ([place] [facility]) Amsqg-4-Yqpfqgovv 0.28 GM/DL 0.17-0.41 [facility] ([facility]) Qrca-6-Sfxanxyec 0.46 GM/DL 0.28-0.60 [facility] ([facility]) Maoo-7-Whgucjvnu 0.32 GM/DL 0.19-0.55 [facility] ([facility]) Joiur-7-Tdjgjhntc 0.69 GM/DL 0.42-0.99 [facility] ([facility]) Total Protein 6.5 GM/DL 6.4-8.2 [facility] ([facility]) Gamma Globulins 0.66 GM/DL 0.65-1.58 [facility] ([facility]) Spep Interpretation Laboratory test result [facility] ([facility]) NO M-SPIKE(S)NOTED. Laboratory test finding (navigational concept) Laboratory test result [facility]) REV'D BY Freya NELSON ID Date Data Source [id number] 11/30/2019 02:14:00 PM EDT [facility] ([facility]) Name Value Range Interpretation Code Description Data Shruti rce(s) Supporting Document(s) Urine Total Protein 5.9 mg/dL [facility] ([facility]) Laboratory test finding (navigational concept) 100.0 % [facility] ([facility]) Laboratory test finding (navigational concept) 0.0 % [facility] ([facility]) Laboratory test finding (navigational concept) 0.0 % [facility] ([facility]) Laboratory test finding (navigational concept) 0.0 % [facility] ([facility]) Laboratory test finding (navigational concept) Laboratory test result [facility] ([facility]) Laboratory test finding (navigational concept) 0.0 % [facility] ([facility]) Laboratory test finding (navigational concept) Laboratory test result [facility] ([facility]) . Protein electrophoresis scan will follow via computer, mail, or waistline joiner lockstitch delivery. Performed at: RN - [facility] [address] [id number] City Auditor: Jana Barbosa MD, Phone: [phone] ID Date Data Source [id number] 11/30/2019 02:12:00 PM EDT [facility] ([facility]) Name Value Range Interpretation Code Description Data Shruti rce(s) Supporting Document(s) White Blood Count 10.8 10 4.0-10.0 [facility] ([facility]) Red Blood Count 4.14 10 4.00-5.40 [facility] ([facility]) Hemoglobin 12.2 g/dL 12.0-15.5 [facility] ([place] [facility]) Hematocrit 38.5 % 36.0-47.0 [facility] ([facility]) Mean Corpuscular Volume 93.0 fl 80.0-96.0 [facility] ([facility] [place] [facility]) Red Cell Distribution Width 15.9 % 11.5-14.5 [facility] ([place] [facility]) Mean Corpuscular HGB Conc 31.7 g/dL 32.0-36.5 MEDE NT ([facility]) Mean Corpuscular Hemoglobin 29.5 pg 27.0-33.0 [facility] ([facility]) Platelet Count, Automated 203 10 150-450 [facility] NT ([facility]) Nucleated Red Blood Cell % 0.0 % 0-0 [facility] ([facility]) ID Date Data Source [id number] 11/30/2019 02:12:00 PM EDT [facility] ([facility]) Name Value Range Interpretation Code Description Data Shruti rce(s) Supporting Document(s) Neutrophils % 71.6 % 36.0-66.0 [facility] ([facility]) Lymph % 18.6 % 24.0-44.0 [facility] ([place] [facility]) [place] % 7.3 % 0.0-5.0 [facility] ([place] [facility]) Eos % 1.1 % 0.0-3.0 [facility] ([place] [facility]) Neutrophils # 7.8 10 1.5-8.5 [facility] ([facility]) Immature Granulocyte % 1.0 % 0-3.0 [facility] ([place]) Baso % 0.4 % 0.0-1.0 [facility] ([place] [facility]) Lymph # 2.0 10 1.5-5.0 [facility] ([place] [facility]) Eos # 0.1 10 0.0-0.5 [facility] ([place] [facility]) [place] # 0.8 10 0.0-0.8 [facility] ([place] [facility]) Baso # 0.0 10 0.0-0.2 [facility] ([place] [facility]) ID Date Data Source [id number] 11/30/2019 02:12:00 PM EDT [facility] ([facility]) Name Value Range Interpretation Code Description Data Shruti rce(s) Supporting Document(s) Immunoglobulin A 142.0 mg/dL 70-400 [facility] Immunoglobulin M 29.0 mg/dL 40-230 [facility] ([facility]) Immunoglobulin G 670 mg/dL 681-1648 [facility] ([facility]) ID Date Data Source [id number] 11/30/2019 02:12:00 PM EDT [facility] ([facility]) Name Value Range Interpretation Code Description Data Shruti rce(s) Supporting Document(s) Lrljb-6-Omxgyrzy % 6.1 % 2.9-4.9 [facility] ([facility]) Rumov-8-Hyotmvokg % 11.7 % 7.1-11.8 [facility] ([facility]) Albumin % 58.9 % 55.8-66.1 [facility] ([place] [facility]) Zhue-1-Mglzihqpr % 6.8 % 4.7-7.2 [facility] ([facility]) Albumin 3.95 GM/DL 3.29-5.55 [facility] ([place] [facility]) Gamma Globulin % 11.0 % 11.1-18.8 [facility] ([facility]) Syii-7-Ddpfdwydy % 5.5 % 3.2-6.5 [facility] ([facility] Nmmkl-0-Oxfdbgvri 0.41 GM/DL 0.17-0.41 [facility] ([facility] Dyvk-3-Ylseqfzpu 0.46 GM/DL 0.28-0.60 [facility] Yfiip-4-Ibhgwvcoe 0.78 GM/DL 0.42-0.99 [facility] ([facility]) Gamma Globulins 0.74 GM/DL 0.65-1.58 [facility] ([facility]) Gdix-5-Mmpnwrklc 0.37 GM/DL 0.19-0.55 [facility] ([facility]) Total Protein 6.7 GM/DL 6.4-8.2 [facility] ([facility]) Spep Interpretation Laboratory test result [facility] ([place]) NO M-SPIKE(S)NOTED. Laboratory test finding (navigational concept) Laboratory test result [facility] ([place] [facility]) REV'D BY Freya NELSON ID Date Data Source [id number] 11/30/2019 02:12:00 PM EDT [facility] ([facility]) Name Value Range Interpretation Code Description Data Shruti rce(s) Supporting Document(s) Free [place] Light Chains Serum 15.9 mg/L 3.3-19.4 [facility] ([place] [facility]) [place]/Lambda Ratio Serum 1.05 0.26-1.65 MED[facility] T ([place]) Performed at: - [facility] [address] [id number] City Auditor: Jana Barbosa MD, Phone: [phone] Free Lambda Light Chains Serum 15.2 mg/L 5.7-26.3 [facility] ([facility]) ID Date Data Source [id number] 10/19/2019 02:22:00 PM EDT [facility] ([facility]) Name Value Range Interpretation Code Description Data Shruti rce(s) Supporting Document(s) [place]/Lambda Ratio Serum 1.06 0.26-1.65 [facility] T ([place] [facility]) Performed at: [facility] [id number] City Auditor: Jana Barbosa MD, Phone: [phone] Free Lambda Light Chains Serum 19.6 mg/L 5.7-26.3 [facility] ([place] [facility]) Free [place] Light Chains Serum 20.7 mg/L 3.3-19.4 [facility] ([place] [facility]) ID Date Data Source [id number] 10/19/2019 02:22:00 PM EDT [facility] ([facility]) Name Value Range Interpretation Code Description Data Shruti rce(s) Supporting Document(s) Albumin % 60.3 % 55.8-66.1 [facility] ([place] [facility]) Gkmo-6-Sxwkaapli % 6.6 % 4.7-7.2 [facility] ([facility]) Wqidn-6-Smppgohp % 5.7 % 2.9-4.9 [facility] ([facility]) Icazs-3-Apwjveuxz % 11.5 % 7.1-11.8 [facility] Iyvi-8-Qtdznxquc % 5.5 % 3.2-6.5 [facility] ([facility]) Albumin 4.16 GM/DL 3.29-5.55 [facility] ([place] [facility]) Gamma Globulin % 10.4 % 11.1-18.8 [facility] ([facility]) Bhwv-5-Clajbrlaz 0.46 GM/DL 0.28-0.60 [facility] ([facility]) Eedfg-8-Ncxcvhxbh 0.79 GM/DL 0.42-0.99 [facility] ([facility]) Wuzjj-6-Oomibufcv 0.39 GM/DL 0.17-0.41 [facility] ([facility]) Jucc-6-Uxwznmxrm 0.38 GM/DL 0.19-0.55 [facility] ([facility]) Total Protein 6.9 GM/DL 6.4-8.2 [facility] ([facility]) Gamma Globulins 0.72 GM/DL 0.65-1.58 [facility] ([facility]) Laboratory test finding (navigational concept) Laboratory test result [facility] ([place] [facility]) REV'D BY Freya NELSON Spep Interpretation Laboratory test result [facility] ([place] [facility]) NO M-SPIKE(S)NOTED. ID Date Data Source [id number] 10/19/2019 02:22:00 PM EDT [facility] ([facility]) Name Value Range Interpretation Code Description Data Shruti rce(s) Supporting Document(s) Immunoglobulin A 165.0 mg/dL 70-400 [facility] ([facility]) Immunoglobulin G 760 mg/dL 681-1648 [facility] ([facility]) Immunoglobulin M 34.7 mg/dL 40-230 [facility] ([facility]) ID Date Data Source [id number] 10/19/2019 02:22:00 PM EDT [facility] ([facility]) Name Value Range Interpretation Code Description Data Shruti rce(s) Supporting Document(s) Creatinine For GFR 1.08 mg/dL 0.55-1.30 [facility] ([facility]) Glucose, Fasting 163 mg/dL 70-100 [facility] ([facility]) Blood Urea Nitrogen 17 mg/dL 7-18 [facility] ([facility]) Glomerular Filtration Rate 53.1 [facility] ([place] [facility]) <content>Units are mL/min/1.73 m2</content>
<content></content>
<content>Chronic Kidney Disease Staging per NKF:</content>
<content></content>
<content>Stage I & II GFR >=60 Normal to Mildly Decreased</content>
<content>Stage III GFR 30- 59 Moderately Decreased</content>
<content>Stage IV GFR 15-29 Severely Decreased</content>
<content>Stage V GFR <15 Very Little GFR Left</content>
<content>ESRD GFR <15 on INSERT OPERATOR</content>
<content></content> Potassium Serum 3.6 meq/L 3.5-5.1 [facility] ([facility]) Sodium Level 139 meq/L 136-145 [facility] ([place] [facility]) Carbon Dioxide Level 31 meq/L 21-32 [facility] ([facility]) Chloride Level 105 meq/L 98-107 [facility] ([facility]) Anion Gap 3 meq/L 8-16 [facility] ([place] [facility]) Calcium Level 10.0 mg/dL 8.8-10.2 [facility] ([facility]) Ast/Sgot 19 U/L 7-37 [facility] ([place] [facility]) Alt/SGPT 21 U/L 12-78 [facility] ([place] [facility]) Bilirubin,Total 0.4 mg/dL 0.2-1.0 [facility] ([place] [facility]) Total Protein 7.2 GM/DL 6.4-8.2 [facility] Alkaline Phosphatase 136 U/L 45-117 [facility] Albumin 3.5 GM/DL 3.2-5.2 [facility] ([place] [facility]) Albumin/Globulin Ratio 0.95 1.00-1.93 [facility] ([place] [facility]) ID Date Data Source [id number] 10/19/2019 02:22:00 PM EDT [facility] ([facility]) Name Value Range Interpretation Code Description Data Shruti rce(s) Supporting Document(s) Lymph % 10.4 % 24.0-44.0 [facility] ([place] [facility]) Neutrophils % 81.2 % 36.0-66.0 [facility]) [place] % 6.6 % 0.0-5.0 [facility] ([place] [facility]) Immature Granulocyte % 0.7 % 0-3.0 [facility] ([place] [facility]) Baso % 0.3 % 0.0-1.0 [facility] ([place] [facility]) Eos % 0.8 % 0.0-3.0 [facility] ([place] [facility]) [place] # 1.0 10 0.0-0.8 [facility] ([place] [facility]) Neutrophils # 12.6 10 1.5-8.5 [facility] Lymph # 1.6 10 1.5-5.0 [facility] ([place] [facility]) Baso # 0.1 10 0.0-0.2 [facility] ([place] [facility]) Eos # 0.1 10 0.0-0.5 [facility] ([place] [facility]) ID Date Data Source [id number] 10/19/2019 02:22:00 PM EDT [facility] ([facility]) Name Value Range Interpretation Code Description Data Shruti rce(s) Supporting Document(s) Hemoglobin 13.3 g/dL 12.0-15.5 [facility] ([place] [facility]) White Blood Count 15.5 10 4.0-10.0 [facility] [facility]) Red Blood Count 4.60 10 4.00-5.40 MEDENT ([facility]) Mean Corpuscular HGB Conc 31.1 g/dL 32.0-36.5 MEDE NT ([facility]) Mean Corpuscular Volume 92.8 fl 80.0-96.0 MED[facility] ([facility]) Hematocrit 42.7 % 36.0-47.0 [facility]) Mean Corpuscular Hemoglobin 28.9 pg 27.0-33.0 ME DENT ([facility]) Platelet Count, Automated 268 10 150-450 MEDE NT ([facility]) Red Cell Distribution Width 16.6 % 11.5-14.5 ME DENT ([facility]) Nucleated Red Blood Cell % 0.0 % 0-0 MED ENT ([facility]) ID Date Data Source [id number] 10/19/2019 08:27:00 AM EDT [facility] Name Value Range Interpretation Code Description Data Shruti rce(s) Supporting Document(s) Alanine aminotransferase [Enzymatic activity/volume] in Serum or Pl asma 21 MEDENT ([facility]) Calcium [Mass/volume] in Serum or Plasma 10.0 [facility] ([facility]) Albumin [Mass/volume] in Serum or Plasma 3.5 [facility] ([facility]) Potassium [Moles/volume] in Serum or Plasma 3.6 [facility] ([facility]) Alkaline phosphatase [Enzymatic activity/volume] in Serum or Plasma 1 36 [facility] ([facility]) Carbon dioxide, total [Moles/volume] in Serum or Plasma 31 [facility] ([facility]) Chloride [Moles/volume] in Serum or Plasma 105 [facility] ([facility]) Protein [Mass/volume] in Serum or Plasma 7.2 [facility] ([facility]) Aspartate aminotransferase [Enzymatic activity/volume] in Serum or Plasma 19 [facility] ([facility]) Sodium 139 MED[facility] ([facility]) Urea nitrogen [Mass/volume] in Serum or Plasma 17 MED[facility] ([facility]) Creatinine For GFR 1.08 [facility] ([facility]) Glucose 163 70-100 [facility] ([facility]) ID Date Data Source [id number] 10/19/2019 08:27:00 AM EDT MED[facility] ([facility]) Name Value Range Interpretation Code Description Data Shruti rce(s) Supporting Document(s) White Blood Count 15.5 4.0-10.0 [facility] ([facility]) Red Blood Count 4.60 4.00-5.40 MED[facility] ([facility]) Platelets 268 150-450 [facility] Hematocrit 42.7 MED[facility] ([facility]) Hemoglobin 13.3 [facility] ([facility]) ID Date Data Source [id number] 10/03/2019 08:12:00 AM EDT MED[facility] ([facility]) Name Value Range Interpretation Code Description Data Shruti rce(s) Supporting Document(s) Thyrotropin [Units/volume] in Serum or Plasma by Detec tion limit <= 0.05 mIU/L 1.68 uIU/mL 0.36-3.74 MEDENT ([facility] ) ID Date Data Source [id number] 10/03/2019 08:12:00 AM EDT MED[facility] ([facility]) Name Value Range Interpretation Code Description Data Shruti rce(s) Supporting Document(s) Cholesterol in HDL [Mass/volume] in Serum or Plasma 38 mg/dL 35-60 MEDENT ([facility]) Triglyceride [Mass/volume] in Serum or Plasma 164 mg/dL 30-150 MED[facility] ([facility]) Cholesterol [Mass/volume] in Serum or Plasma 209 mg/dL 131-200 MED[facility] ([facility]) Cholesterol in LDL [Mass/volume] in Serum or Plasma by calcu lation 138 CALC 50-159 [facility] ([facility]) ID Date Data Source [id number] 10/03/2019 08:12:00 AM EDT MED[facility] ([facility]) Name Value Range Interpretation Code Description Data Shruti rce(s) Supporting Document(s) Creatinine 1.0 mg/dL 0.6-1.3 [facility] ([facility]) Glucose [Mass/volume] in Serum or Plasma 119 mg/dL 74-99 MED[facility] ([facility]) 100-125 mg/dL PRE-DIABETES/FASTING >126 mg/dL DIABETES/FASTING Urea nitrogen [Mass/volume] in Serum or Plasma 14 mg/dL 7-18 MED[facility] ([facility]) Chloride [Moles/volume] in Serum or Plasma 105 meq/L 98-107 MED[facility] ([facility]) Sodium [Moles/volume] in Serum or Plasma 143 meq/L 136-145 MED[facility] ([facility]) Potassium [Moles/volume] in Serum or Plasma 4.4 meq/L 3.5-5.1 MED[facility] ([facility]) Carbon dioxide, total [Moles/volume] in Serum or Plasma 27 meq/L 21 -32 MED[facility] ([facility]) Alkaline phosphatase isoenzyme [Units/volume] in Serum or Pl asma 109 mg/dL 46-116 MED[facility] ([facility]) Calcium [Mass/volume] in Serum or Plasma 9.1 mg/dL 8.5-10.1 [facility] ([facility]) Total Bilirubin 0.4 mg/dL 0.2-1.0 MED[facility] ([facility]) Albumin [Mass/volume] in Serum or Plasma 3.3 g/dL 3.4-5.0 [facility] ([facility]) Aspartate aminotransferase [Enzymatic activity/volume] in Serum or Plasma 12 U/L 15-37 MED[facility] ([facility] ) Alanine aminotransferase [Enzymatic activity/volume] in Seru m or Plasma 15 U/L 12-78 [facility] ([facility]) Proteinase 3 Ab [Units/volume] in Serum 6.1 g/dL 6.4-8.2 MED[facility] ([facility]) Glomerular filtration rate/1.73 sq M pre dicted among non-blacks [Volume Rate/Area] in Serum or Plasma by Creatinine-based formula (MDRD) 55 mL/min MED[facility] ([facility]) A/G Ratio 1.18 CALC 1.00-1.90 [facility] ([place] [facility]) Glomerular filtration rate/1.73 sq M pre dicted among blacks [Volume Rate/Area] in Serum or Plasma by Creatinine-based formula (MDRD) Laboratory test result [facility] [facility] <content>CHRONIC KIDNEY DISEASE STAGING PER NKF</content>
<content></content>
<content>STAGE I & II GFR >= 60 NORMAL TO MILDLY DECREASED</content>
<content>STAGE III GFR 30-59 MODERATELY DECREASED</content>
<content>STAGE IV GFR 15-29 SEVERELY DECREASED</content>
<content>STAGE V GFR <15 VERY LITTLE GFR LEFT</content>
<content>ESRD GFR <15 ON INSERT OPERATOR</content>
<content></content> ID Date Data Source [id number] 10/03/2019 08:12:00 AM EDT [facility] ([facility]) Name Value Range Interpretation Code Description Data Shruti rce(s) Supporting Document(s) Glucose mean value [Mass/volume] in Blood Estimated fr om glycated hemoglobin 151 mg/dL 60-110 [facility] [facility] Hemoglobin A1c/Hemoglobin.total in Blood 6.9 g/dL 4.8-5.6 [facility] [facility] Lab Result Notes: Pre-Diabetes 5.7 - 6.4 % Diabetes = or > 6.5% ID Date Data Source [id number] 10/03/2019 08:12:00 AM EDT [facility] Name Value Range Interpretation Code Description Data Shruti rce(s) Supporting Document(s) Leukocytes [#/volume] in Blood by Automated count 11.2 x10*3/UL 4.1-1 0.9 [facility] ([facility]) Hemoglobin [Mass/volume] in Blood 12.0 g/dL 12.0-18.0 [facility] ([facility]) Erythrocytes [#/volume] in Blood by Automated count 4.25 x10*6/UL 4.2 0-6.30 [facility] [facility] Hematocrit [Volume Fraction] of Blood by Automated count 37.5 % 3 7.0-51.0 [facility] ([facility]) MCHC 32.0 g/dL 31.0-38.0 [facility] ([place] [facility]) MCV 88.3 fL 80.0-97.0 MED[facility] ([facility] [place]) MCH 28.3 pg 26.0-32.0 [facility] ([facility] [place]) MPV 8.3 FL 7.8-11.0 [facility] ([facility] [place]) Erythrocyte distribution width [Ratio] by Automated count 15.1 % 11.6-13.7 [facility] ([place] [facility] Platelets [#/volume] in Blood by Automated count 237 x10*3/UL 140-440 [facility] ([place] [facility] Lymph % 13.5 % 10.0-58.5 [facility] ([place] [facility]) Neut % 82.0 % 37.0-92.0 [facility] ([facility] [place]) Mid % 4.5 % 1.7-9.3 [facility] ([facility] [place]) Lymph # 1.5 x10*3/UL 0.6-4.1 [facility] ([facility]) Neut # 9.2 x10*3/UL 2.0-7.8 [facility] ([facility]) NOTE: RESULT VERIFIED. Mid # 0.5 x10*3/UL 0.1-0.6 [facility] ([place] [facility] ID Date Data Source [id number] 09/21/2019 02:31:00 PM EST [facility] ([facility] Name Value Range Interpretation Code Description Data Shruti rce(s) Supporting Document(s) Laboratory test finding (navigational concept) 100.0 % MEDENT ([facility]) Urine Total Protein 19.8 mg/dL [facility] ([facility]) Laboratory test finding (navigational concept) 0.0 % [facility] ([facility]) Laboratory test finding (navigational concept) 0.0 % [facility] ([facility]) Laboratory test finding (navigational concept) 0.0 % [facility] ([facility]) Laboratory test finding (navigational concept) Laboratory test result [facility] ([facility]) Laboratory test finding (navigational concept) 0.0 % [facility] ([facility]) Laboratory test finding (navigational concept) Laboratory test result MED[facility] ([facility]) . Protein electrophoresis scan will follow via computer, mail, or waistline joiner lockstitch delivery. Performed at: RN - [facility] [address] [id number] City Auditor: Jana Barbosa MD, Phone: [phone] ID Date Data Source [id number] 09/21/2019 02:29:00 PM EST MED[facility] ([facility]) Name Value Range Interpretation Code Description Data Shruti rce(s) Supporting Document(s) C reactive protein [Mass/volume] in Serum or Plasma by High sensitivity method 2.62 mg/dL 0.00-0.30 [facility] ([place] [facility] ID Date Data Source [id number] 09/21/2019 02:29:00 PM EST MED[facility] ([facility]) Name Value Range Interpretation Code Description Data Shruti rce(s) Supporting Document(s) Creatinine For GFR 0.99 mg/dL 0.55-1.30 [facility] ([facility]) Glucose, Fasting 170 mg/dL 70-100 [facility] ([facility]) Blood Urea Nitrogen 12 mg/dL 7-18 [facility] ([facility]) Glomerular Filtration Rate 58.7 MED ENT ([place] [facility] <content>Units are mL/min/1.73 m2</content>
<content></content>
<content>Chronic Kidney Disease Staging per NKF:</content>
<content></content>
<content>Stage I & II GFR >=60 Normal to Mildly Decreased</content>
<content>Stage III GFR 30- 59 Moderately Decreased</content>
<content>Stage IV GFR 15-29 Severely Decreased</content>
<content>Stage V GFR <15 Very Little GFR Left</content>
<content>ESRD GFR <15 on INSERT OPERATOR</content>
<content></content> Sodium Level 139 meq/L 136-145 MED[facility] ([facility]) Potassium Serum 3.7 meq/L 3.5-5.1 [facility] ([facility]) Anion Gap 5 meq/L 8-16 [facility] ([place] [facility]) Chloride Level 103 meq/L 98-107 [facility] ([facility]) Calcium Level 9.3 mg/dL 8.8-10.2 [facility] ([facility]) Carbon Dioxide Level 31 meq/L 21-32 [facility] ([facility]) Ast/Sgot 6 U/L 7-37 [facility] ([place] [facility]) Alt/SGPT 18 U/L 12-78 [facility] ([facility] [place]) Alkaline Phosphatase 107 U/L 45-117 [facility] ([facility]) Total Protein 6.2 GM/DL 6.4-8.2 [facility] ([facility]) Albumin 3.4 GM/DL 3.2-5.2 [facility] ([facility] [place]) Bilirubin,Total 0.2 mg/dL 0.2-1.0 [facility] ([facility]) Albumin/Globulin Ratio 1.21 1.00-1.93 [facility] ([facility]) ID Date Data Source [id number] 09/21/2019 02:29:00 PM EST MED[facility] ([facility]) Name Value Range Interpretation Code Description Data Shruti rce(s) Supporting Document(s) Free Lambda Light Chains Serum 18.7 mg/L 5.7-26.3 [facility]) [place]/Lambda Ratio Serum 1.04 0.26-1.65 [facility] ([facility]) Performed at: RN - [facility] [address] [id number] City Auditor: Jana Barbosa MD, Phone: [phone] Free [place] Light Chains Serum 19.5 mg/L 3.3-19.4 [facility] ([facility]) ID Date Data Source [id number] 09/21/2019 02:29:00 PM EST MED[facility] ([facility]) Name Value Range Interpretation Code Description Data Shruti rce(s) Supporting Document(s) Erythrocyte sedimentation rate by Westergren method 42 mm/hr 0-30 MED[facility] ([facility]) ID Date Data Source [id number] 09/21/2019 02:29:00 PM EST MED[facility] ([facility]) Name Value Range Interpretation Code Description Data Shruti rce(s) Supporting Document(s) Neutrophils % 76.7 % 36.0-66.0 [facility] Lymph % 13.8 % 24.0-44.0 [facility] ([place] [facility]) [place] % 7.3 % 0.0-5.0 [facility] ([place] [facility]) Eos % 1.1 % 0.0-3.0 [facility] ([place] [facility]) Baso % 0.2 % 0.0-1.0 [facility] ([place] [facility]) Immature Granulocyte % 0.9 % 0-3.0 [facility] ([facility]) Lymph # 1.4 10 1.5-5.0 [facility] ([place] [facility]) Neutrophils # 8.0 10 1.5-8.5 [facility] [place] # 0.8 10 0.0-0.8 [facility] ([place] [facility]) Eos # 0.1 10 0.0-0.5 [facility] ([place] [facility]) Baso # 0.0 10 0.0-0.2 [facility] ([place] [facility]) ID Date Data Source [id number] 09/21/2019 02:29:00 PM EST MED[facility] ([facility]) Name Value Range Interpretation Code Description Data Shruti rce(s) Supporting Document(s) White Blood Count 10.4 10 4.0-10.0 [facility] ([facility]) Red Blood Count 4.28 10 4.00-5.40 [facility] Hematocrit 39.9 % 36.0-47.0 [facility] ([place] [facility]) Hemoglobin 12.2 g/dL 12.0-15.5 [facility] ([place] [facility]) Mean Corpuscular Volume 93.2 fl 80.0-96.0 [facility] ([facility]) Red Cell Distribution Width 16.1 % 11.5-14.5 [facility] ([place] [facility] Platelet Count, Automated 233 10 150-450 MEDE NT ([place] [facility] Mean Corpuscular HGB Conc 30.6 g/dL 32.0-36.5 [facility] NT ([place] [facility] Mean Corpuscular Hemoglobin 28.5 pg 27.0-33.0 ME [facility]ENT ([place] [facility] Nucleated Red Blood Cell % 0.0 % 0-0 MED ENT ([place] [facility] ID Date Data Source [id number] 08/08/2019 01:09:00 PM EST [facility] ([facility]) Name Value Range Interpretation Code Description Data Shruti rce(s) Supporting Document(s) Blood Urea Nitrogen 12 mg/dL 7-18 [facility] ([facility] Glucose, Fasting 139 mg/dL 70-100 [facility] Glomerular Filtration Rate 58.7 [facility] ([place] [facility] <content>Units are mL/min/1.73 m2</content>
<content></content>
<content>Chronic Kidney Disease Staging per NKF:</content>
<content></content>
<content>Stage I & II GFR >=60 Normal to Mildly Decreased</content>
<content>Stage III GFR 30- 59 Moderately Decreased</content>
<content>Stage IV GFR 15-29 Severely Decreased</content>
<content>Stage V GFR <15 Very Little GFR Left</content>
<content>ESRD GFR <15 on INSERT OPERATOR</content>
<content></content> Creatinine For GFR 0.99 mg/dL 0.55-1.30 [facility] ([facility]) Sodium Level 137 meq/L 136-145 [facility] ([facility]) Chloride Level 103 meq/L 98-107 [facility] ([facility]) Carbon Dioxide Level 25 meq/L 21-32 [facility] ([facility]) Potassium Serum 3.9 meq/L 3.5-5.1 [facility] ([facility]) Ast/Sgot 9 U/L 7-37 [facility] ([place] [facility]) Calcium Level 9.8 mg/dL 8.8-10.2 [facility] ([facility]) Anion Gap 9 meq/L 8-16 [facility] ([facility] [place]) Alkaline Phosphatase 130 U/L 45-117 [facility] ([facility]) Bilirubin,Total 0.4 mg/dL 0.2-1.0 [facility] ([facility]) Alt/SGPT 14 U/L 12-78 [facility] ([place] [facility]) Total Protein 6.6 GM/DL 6.4-8.2 [facility] ([facility]) Albumin/Globulin Ratio 1.13 1.00-1.93 [facility] ([facility]) Albumin 3.5 GM/DL 3.2-5.2 [facility] ([facility] [place]) ID Date Data Source [id number] 08/08/2019 01:09:00 PM EST [facility] ([facility]) Name Value Range Interpretation Code Description Data Shruti rce(s) Supporting Document(s) Immunoglobulin A 184.0 mg/dL 70-400 [facility] ([facility]) Immunoglobulin G 823 mg/dL 681-1648 [facility] ([facility]) Immunoglobulin M 42.9 mg/dL 40-230 [facility] ([facility]) ID Date Data Source [id number] 08/08/2019 01:09:00 PM EST [facility] ([facility]) Name Value Range Interpretation Code Description Data Shruti rce(s) Supporting Document(s) Upep Interpretation TNP MEDENT ([facility]) QNS TO PERFORM TEST. MINIMUM VOLUME IS 1 2ML. Urine Total Protein 14.1 mg/dL 0-12 [facility] ([facility]) Urine Volume TNP ML [facility] ([facility]) ID Date Data Source [id number] 08/08/2019 01:08:00 PM EST [facility] ([facility]) Name Value Range Interpretation Code Description Data Shruti rce(s) Supporting Document(s) Free [place] Light Chains Serum 23.9 mg/L 3.3-19.4 [facility] ([facility]) Free Lambda Light Chains Serum 22.5 mg/L 5.7-26.3 [facility] ([facility]) [place]/Lambda Ratio Serum 1.06 0.26-1.65 MEDEN T ([facility]) Performed at: RN - [facility] [address] [id number] City Auditor: Jana Barbosa MD, Phone: [phone] ID Date Data Source [id number] 07/12/2019 02:22:00 PM EST [facility] ([facility]) Name Value Range Interpretation Code Description Data Shruti rce(s) Supporting Document(s) C reactive protein [Mass/volume] in Serum or Plasma by High sensitivity method 2.75 mg/dL 0.00-0.30 [facility] ([facility] ) Erythrocyte sedimentation rate by Westergren method 50 mm/hr 0-30 [facility] ([facility]) ID Date Data Source [id number] 07/12/2019 02:22:00 PM EST [facility] ([facility]) Name Value Range Interpretation Code Description Data Shruti rce(s) Supporting Document(s) Neutrophils % 85.8 % 36.0-66.0 [facility] [place] % 5.1 % 0.0-5.0 [facility] ([place] [facility]) Lymph % 7.3 % 24.0-44.0 [facility] ([place] [facility]) Eos % 0.5 % 0.0-3.0 [facility] ([place] [facility]) Baso % 0.3 % 0.0-1.0 [facility] ([place] [facility]) Immature Granulocyte % 1.0 % 0-3.0 [facility] ([facility]) Lymph # 1.1 10 1.5-5.0 [facility] ([place] [facility]) Neutrophils # 13.0 10 1.5-8.5 [facility]) [place] # 0.8 10 0.0-0.8 [facility] ([place] [facility]) Eos # 0.1 10 0.0-0.5 [facility] ([place] [facility]) Baso # 0.1 10 0.0-0.2 [facility] ([place] [facility]) ID Date Data Source [id number] 07/12/2019 02:22:00 PM EST [facility] ([facility]) Name Value Range Interpretation Code Description Data Shruti rce(s) Supporting Document(s) White Blood Count 15.2 10 4.0-10.0 [facility] ([facility]) Red Blood Count 4.18 10 4.00-5.40 [facility] ([facility]) Hemoglobin 12.7 g/dL 12.0-15.5 [facility] [facility] Hematocrit 41.2 % 36.0-47.0 [facility] [facility] Mean Corpuscular Hemoglobin 30.4 pg 27.0-33.0 ME DENT ([facility]) Mean Corpuscular Volume 98.6 fl 80.0-96.0 [facility] ([facility]) Mean Corpuscular HGB Conc 30.8 g/dL 32.0-36.5 MEDE NT ([facility]) Platelet Count, Automated 217 10 150-450 MEDE NT ([facility]) Red Cell Distribution Width 15.1 % 11.5-14.5 ME [facility] ([facility]) Nucleated Red Blood Cell % 0.0 % 0-0 MED [facility] ([facility]) Procedure Social History Code Duration Value Status Description Data Source(s ) Smoking 08/30/2020 12:00:00 AM EST Never Smoker completed Never S moker eCW1 ([facility]) Smoking 08/10/2020 12:00:00 AM EST Never Smoker completed Never S moker eCW1 ([facility]) Smoking 08/10/2020 12:00:00 AM EST Never Smoker completed Never S moker eCW1 ([facility]) Smoking 07/09/2020 12:00:00 AM EST Never Smoker completed Never S moker eCW1 ([facility]) Smoking 07/09/2020 12:00:00 AM EST Never Smoker completed Never S moker eCW1 ([facility]) Smoking 07/09/2020 12:00:00 AM EST Never Smoker completed Never S moker eCW1 ([facility]) Smoking 07/09/2020 12:00:00 AM EST Never Smoker completed Never S moker eCW1 ([facility]) Smoking 05/22/2020 12:00:00 AM EDT Never Smoker completed Never S moker eCW1 ([facility]) Smoking 05/22/2020 12:00:00 AM EDT Never Smoker completed Never S moker eCW1 ([facility]) Smoking 05/22/2020 12:00:00 AM EDT Never Smoker completed Never S moker eCW1 ([facility]) Smoking 02/09/2020 12:00:00 AM EDT Never Smoker completed Never S moker eCW1 ([facility]) Smoking 02/08/2020 12:00:00 AM EDT Patient is a former smoker completed Patient is a former smoker [facility] ([facility]) Smoking 12/08/2019 12:00:00 AM EDT Never Smoker completed Never S moker eCW1 ([facility]) Smoking 12/08/2019 12:00:00 AM EDT Never Smoker completed Never S moker eCW1 ([facility]) Vital Signs ID Date Data Source UNK Name Value Range Interpretation Code Description Data Source(s) Body temperature 97.2 [degF] 97.2 [degF] [facility] ([facility]) Body weight 84.370 kg 84.370 kg [facility] Body mass index (BMI) [Ratio] 36.3 kg/m2 36.3 k g/m2 [facility] ([facility]) Heart rate 68 /min 68 /min [facility] ([facility]) Diastolic blood pressure 88 mm[Hg] 88 mm[Hg] MED[facility] ([facility]) Systolic blood pressure 133 mm[Hg] 133 mm[Hg] M EDENT ([facility]) Body weight 186.00 [lb_av] 186.00 [lb_av] MEDEN T ([facility]) Body height 60 [in_i] 60 [in_i] MED[facility] ([facility]) 5'0" Diastolic blood pressure 74 mm[Hg] 74 mm[Hg] eCW1 ([facility]) Systolic blood pressure 142 mm[Hg] 142 mm[Hg] e CW1 ([facility]) Body temperature 98.3 [degF] 98.3 [degF] eCW1 ( [facility]) Respiratory rate 18 /min 18 /min eCW1 ([facility]) Heart rate 74 /min 74 /min eCW1 ([facility]) Body mass index (BMI) [Ratio] 36.13 kg/m2 36.13 kg/m2 eCW1 ([facility]) Body height 60 [in_i] 60 [in_i] eCW1 ([facility]) Body weight 185 [lb_av] 185 [lb_av] eCW1 ([facility]) Body mass index (BMI) [Ratio] 35.0 kg/m2 35.0 k g/m2 MEDENT ([facility]) Body weight 185.00 [lb_av] 185.00 [lb_av] MEDEN T ([facility]) Body height 61 [in_i] 61 [in_i] MEDENT ([facility]) 5'1" Heart rate 72 /min 72 /min MEDENT ([facility]) Diastolic blood pressure 78 mm[Hg] 78 mm[Hg] MEDENT ([facility]) Systolic blood pressure 136 mm[Hg] 136 mm[Hg] M EDENT ([facility]) Diastolic blood pressure 70 mm[Hg] 70 mm[Hg] eCW1 ([facility]) Systolic blood pressure 128 mm[Hg] 128 mm[Hg] e CW1 ([facility]) Body temperature 98.3 [degF] 98.3 [degF] eCW1 ( [facility]) Respiratory rate 18 /min 18 /min eCW1 ([facility]) Heart rate 74 /min 74 /min eCW1 ([facility]) Body mass index (BMI) [Ratio] 35.35 kg/m2 35.35 kg/m2 eCW1 ([facility]) Body height 60 [in_i] 60 [in_i] eCW1 ([facility]) Body weight 181 [lb_av] 181 [lb_av] eCW1 ([facility]) Body mass index (BMI) [Ratio] 32.9 kg/m2 32.9 k g/m2 MEDENT ([facility]) Body weight 174.00 [lb_av] 174.00 [lb_av] MEDEN T ([facility]) Body height 61 [in_i] 61 [in_i] MEDENT ([facility]) 5'1" Heart rate 72 /min 72 /min MEDENT ([facility]) Diastolic blood pressure 76 mm[Hg] 76 mm[Hg] MEDENT ([facility]) Systolic blood pressure 132 mm[Hg] 132 mm[Hg] M EDENT ([facility]) Diastolic blood pressure 72 mm[Hg] 72 mm[Hg] eCW1 ([facility]) Systolic blood pressure 134 mm[Hg] 134 mm[Hg] e CW1 ([facility]) Body temperature 98.1 [degF] 98.1 [degF] eCW1 ( [facility]) Respiratory rate 18 /min 18 /min eCW1 ([facility]) Heart rate 72 /min 72 /min eCW1 ([facility]) Body mass index (BMI) [Ratio] 31.64 kg/m2 31.64 kg/m2 eCW1 ([facility]) Body height 60 [in_i] 60 [in_i] eCW1 ([facility]) Body weight 162 [lb_av] 162 [lb_av] eCW1 ([facility]) Diastolic blood pressure 74 mm[Hg] 74 mm[Hg] MEDENT ([facility]) sitting Systolic blood pressure 136 mm[Hg] 136 mm[Hg] M EDENT ([facility]) sitting Diastolic blood pressure 70 mm[Hg] 70 mm[Hg] MEDENT ([facility]) sitting, large cuff Systolic blood pressure 136 mm[Hg] 136 mm[Hg] M EDENT ([facility]) sitting, large cuff Respiratory rate 16 /min 16 /min MEDENT ( [facility]) Heart rate 68 /min 68 /min MEDENT ([facility]) Regular Body mass index (BMI) [Ratio] 30.4 kg/m2 30.4 k g/m2 MEDENT ([facility]) Body height 61 [in_i] 61 [in_i] MEDENT ([facility] 5'1" Body weight 161.00 [lb_av] 161.00 [lb_av] MEDEN T ([facility]) Body mass index (BMI) [Ratio] 31.2 kg/m2 31.2 k g/m2 MEDENT ([facility]) Body weight 160.00 [lb_av] 160.00 [lb_av] MEDEN T ([facility]) Body height 60 [in_i] 60 [in_i] MEDENT ([facility]) 5'0" Body weight 165.00 [lb_av] 165.00 [lb_av] MEDEN T ([facility]) Heart rate 76 /min 76 /min MEDENT ([facility]) Diastolic blood pressure 72 mm[Hg] 72 mm[Hg] MEDENT ([facility]) Systolic blood pressure 122 mm[Hg] 122 mm[Hg] M EDENT ([facility]) Diastolic blood pressure 62 mm[Hg] 62 mm[Hg] eCW1 ([facility]) Systolic blood pressure 112 mm[Hg] 112 mm[Hg] e CW1 ([facility]) Body temperature 97.8 [degF] 97.8 [degF] eCW1 ( [facility]) Respiratory rate 18 /min 18 /min eCW1 ([facility]) Heart rate 69 /min 69 /min eCW1 ([facility]) Body mass index (BMI) [Ratio] 31.05 kg/m2 31.05 kg/m2 eCW1 ([facility]) Body height 60 [in_us] 60 [in_us] eCW1 ([facility]) Body weight Measured 159 [lb_av] 159 [lb_av] eC W1 ([facility]) Diastolic blood pressure 78 mm[Hg] 78 mm[Hg] eCW1 ([facility]) Systolic blood pressure 126 mm[Hg] 126 mm[Hg] e CW1 ([facility]) Body temperature 97.5 [degF] 97.5 [degF] eCW1 ( [facility]) Respiratory rate 18 /min 18 /min eCW1 ([facility]) Heart rate 95 /min 95 /min eCW1 ([facility]) Body mass index (BMI) [Ratio] 31.05 kg/m2 31.05 kg/m2 eCW1 ([facility]) Body height 60 [in_us] 60 [in_us] eCW1 ([facility]) Body weight Measured 159 [lb_av] 159 [lb_av] eC W1 ([facility]) Diastolic blood pressure 76 mm[Hg] 76 mm[Hg] eCW1 ([facility]) Systolic blood pressure 128 mm[Hg] 128 mm[Hg] e CW1 ([facility]) Body temperature 98.6 [degF] 98.6 [degF] eCW1 ( [facility]) Respiratory rate 20 /min 20 /min eCW1 ([facility]) Heart rate 69 /min 69 /min eCW1 ([facility]) Body mass index (BMI) [Ratio] 31.28 kg/m2 31.28 kg/m2 eCW1 ([facility]) Body height 60 [in_us] 60 [in_us] eCW1 ([facility]) Body weight Measured 160.2 [lb_av] 160.2 [lb_av ] eCW1 ([facility]) Patient Treatment Plan of Care Planned Activity Planned Date Details Description Data Source (s) Zinplava 1000 MG/40ML 08/09/2020 12:00:00 AM EST eCW1 ([facility]) Zinplava 1000 MG/40ML 08/09/2020 12:00:00 AM EST eCW1 ([facility]) fidaxomicin 200 MG Oral Tablet [Dificid] 07/24/2020 12:00:00 AM EST eCW1 ([facility]) fidaxomicin 200 MG Oral Tablet [Dificid] 07/24/2020 12:00:00 AM EST eCW1 ([facility]) fidaxomicin 200 MG Oral Tablet [Dificid] 05/22/2020 12:00:00 AM EDT eCW1 ([facility]) fidaxomicin 200 MG Oral Tablet [Dificid] 05/22/2020 12:00:00 AM EDT eCW1 ([facility]) fidaxomicin 200 MG Oral Tablet [Dificid] 05/22/2020 12:00:00 AM EDT eCW1 ([facility]) Vancomycin 125 MG Oral Capsule 01/17/2020 12:00:00 AM EDT eCW1 ([facility]) Vancomycin 125 MG Oral Capsule 01/17/2020 12:00:00 AM EDT eCW1 ([facility]) Nystatin - 08/02/2019 12:00:00 AM EST e CW1 ([facility]) Nystatin - 08/02/2019 12:00:00 AM EST e CW1 ([facility])
[2020-09-10 14:30] VITALS: BP 155/69
--- NOTE | 2020-09-11 07:26 | ROOR ---
Patient Name: Javier Urbina Procedure Date: 09/10/2020 1:52 PM Date of : 1945 Age: 75 Room: [facility] Gender: Female Note Status: Finalized Procedure: Total Colonoscopy to Cecum + Fecal microbiota transplant (bacteriotherapy Indications: Fecal transplant for treatment of recurrent Clostridium difficile diarrhea Providers: Godwin Burnett MD Referring MD: BETO CHAUDHARY JR, MD Requesting Provider: Medicines: Monitored Anesthesia Care Complications: No immediate complications. Procedure: Pre-Anesthesia Assessment: - The heart rate, respiratory rate, oxygen saturations, blood pressure, adequacy of pulmonary ventilation, and response to care were monitored throughout the procedure. The Colonoscope was introduced through the anus and advanced to the cecum, identified by appendiceal orifice and ileocecal valve. The colonoscopy was performed without difficulty. The patient tolerated the procedure well. The quality of the bowel preparation was good. Findings: The perianal and digital rectal examinations were normal. Non-bleeding internal hemorrhoids were found during retroflexion. The hemorrhoids were small and Grade I (internal hemorrhoids that do not prolapse). No other significant abnormalities were identified in a careful examination of the remainder of the colon. The decision was made to proceed with fecal microbiota transplant (bacteriotherapy). Donor stool was supplied by [employer] (purchased frozen stool) as per protocol. Approximately 250 mL of the donor stool was instilled in the cecum. A detailed colonoscopic exam could not be performed upon scope withdrawal secondary to limited visibility from the instilled stool. The exam was otherwise without abnormality on direct and retroflexion views. Impression: - Non-bleeding internal hemorrhoids. - The examination was otherwise normal on direct and retroflexion views. - Fecal Microbiota Transplant (Bacteriotherapy) performed in the cecum. - No specimens collected. - The exam was otherwise normal to the cecum. Recommendation: - Patient has a contact number available for emergencies. The signs and symptoms of potential delayed complications were discussed with the patient. Return to normal activities tomorrow. Written discharge instructions were provided to the patient. - High fiber diet. - Discharge patient to home. - Continue present medications. - Repeat colonoscopy is not recommended due to current age (66 years or older) for surveillance. - Return to referring physician. - The findings and recommendations were discussed with the patient. Procedure Code(s): --- Professional --- 96818, Colonoscopy, flexible; diagnostic, including collection of specimen(s) by brushing or washing, when performed (separate procedure) 23538, Preparation of fecal microbiota for instillation, including assessment of donor specimen Diagnosis Code(s): --- Professional --- K64.0, First degree hemorrhoids A04.71, Enterocolitis due to Clostridium difficile, recurrent CPT copyright 2019 [employer]. All rights reserved. The codes documented in this report are preliminary and upon carpet installation specialist review may be revised to meet current compliance requirements. Godwin Burnett MD Godwin Burnett MD 09/11/2020 7:26:12 AM Electronically signed by Godwin Burnett MD Number of Addenda: 0 Note Initiated On: 09/10/2020 1:52 PM Estimated Blood Loss: Estimated blood loss: none.
== END 2020-09-10 15:09 | disposition home or self-care (01) ==
LOC: M OPP 12:09
PROVIDERS: ATTEND Internal Medicine Gastroenterology
DX: A04.71 Enterocolitis due to Clostridium difficile, recurrent (principal); K64.0 First degree hemorrhoids; I48.91 Unspecified atrial fibrillation; I50.9 Heart failure, unspecified; I11.0 Hypertensive heart disease with heart failure; E78.5 Hyperlipidemia, unspecified; E11.9 Type 2 diabetes mellitus without complications; M10.9 Gout, unspecified; E03.9 Hypothyroidism, unspecified; R12 Heartburn; M19.90 Unspecified osteoarthritis, unspecified site; M81.0 Age-related osteoporosis without current pathological fracture; L40.9 Psoriasis, unspecified; F41.9 Anxiety disorder, unspecified; G62.9 Polyneuropathy, unspecified; Z85.118 Personal history of other malignant neoplasm of bronchus and lung; Z92.21 Personal history of antineoplastic chemotherapy; Z86.14 Personal history of Methicillin resistant Staphylococcus aureus infection; Z95.0 Presence of cardiac pacemaker; Z88.0 Allergy status to penicillin; Z88.5 Allergy status to narcotic agent; Z88.8 Allergy status to other drugs, medicaments and biological substances; Z91.013 Allergy to seafood; Z91.040 Latex allergy status; Z79.01 Long term (current) use of anticoagulants; Z79.4 Long term (current) use of insulin; Z79.899 Other long term (current) drug therapy

== ENCOUNTER → 2020-10-03 | Outpatient (REF) | payer BC ==
[~2020-10-03] MED LIST changes: -NS 1,000 ML IV ONE
[2020-10-03 19:01] LABS: EOSINOPHILS 4 % (0-3); LYMPHOCYTES 6 % (16-44); MONOCYTES 4 % (0-5); NEUTROPHILS 86 % (28-66); PLATELET ESTIMATE NORMAL (NORMAL)
[2020-10-05 04:06] LABS: LDL DIRECT 138 mg/dL (0-99)
== END ==
LOC: M LAB REF 16:19
PROVIDERS: ATTEND Internal Medicine
DX: E78.00 Pure hypercholesterolemia, unspecified (principal); D72.9 Disorder of white blood cells, unspecified

== ENCOUNTER → 2021-03-06 | Outpatient (REF) | payer BC ==
[~2021-03-06] MED LIST changes: -QUET50TA3 PO; +QUET50TA4 PO
== END ==
LOC: M LAB REF 16:20
PROVIDERS: ATTEND Internal Medicine
DX: E20.9 Hypoparathyroidism, unspecified (principal)

== ENCOUNTER → 2021-05-09 | Outpatient (REF) | payer BC ==
[~2021-05-09] MED LIST changes: -KLOR10TA76 PO; -KLOR20TA42 PO; +LOPE-39 PO; +POTA-136 PO; +POTA-141 PO; +PROBCAP14 PO; +VITA500C24 PO
== END ==
LOC: M WUC 19:49
PROVIDERS: ATTEND Physician Assistant
DX: J20.9 Acute bronchitis, unspecified (principal)

== ENCOUNTER → 2021-05-13 | Outpatient (CLI) | payer BC ==
--- NOTE | 2021-05-13 16:52 | DEXAMM ---
INDICATION: PRIMARY HYPERPARATHYROIDISM. COMPARISON: 04/20/2012, 12/07/2007. TECHNIQUE: Bone density was measured using dual-energy x-ray absorptiometry (DEXA). FINDINGS: AP SPINE L1-L4 BMD 1.336 g/cm2 Young Adult T-Score 1.1 Age Matched Z-Score 2.9. LT FEMUR, TOTAL BMD 1.064 g/cm2 Young Adult T-Score 0.4 Age Matched Z-Score 2.1. LT NECK BMD 0.970 g/cm2 Young Adult T-Score -0.5 Age Matched Z-Score 1.4. RT FEMUR, TOTAL BMD 1.101 g/cm2 Young Adult T-Score 0.7 Age Matched Z-Score 2.4. RT NECK BMD 0.993 g/cm2 Young Adult T-Score -0.3 Age Matched Z-Score 1.5. IMPRESSION: There is normal bone density of the spine. There is normal bone density of the left hip. There is normal bone density of the right hip. The density of the spine has increased 15.3% since the initial exam on 12/07/2007. The density of the spine increased 13.6% since most recent exam on 04/20/2012. The density of the left hip has decreased 7.3% since initial exam on 12/07/2007. The density of the left hip has increased 1.4% since most recent exam on 04/20/2012. The density of the right hip has increased 3.9% since the initial exam on 04/20/2012. FOLLOW-UP: Recommendation for the next bone density exam: 5 years. <Electronically signed by Constantine Hernandez > 05/13/21 [id number]
== END ==
LOC: M WHC 13:53
PROVIDERS: ATTEND Internal Medicine
DX: E21.0 Primary hyperparathyroidism (principal)

== ENCOUNTER → 2021-06-05 | Outpatient (CLI) | payer BC ==
--- NOTE | 2021-06-05 16:49 | REP ---
INDICATION: LUNG CA. COMPARISON: 01/25/2019 TECHNIQUE: 3 mm axial images through the chest without contrast. FINDINGS: Scarring is noted in both apices. A small linear area of increased density at the left lung base posteriorly probably represents scarring and/or subsegmental atelectasis and is less prominent than on the prior study Linear areas of increased density in the region of the right middle and right lower lobes likely represents atelectasis and/or scarring. No effusion is currently identified. The heart is not enlarged and no evidence of pericardial effusion is identified. No definite enlarged hilar or mediastinal nodes are identified. In the partially visualized upper abdomen mild hepatic steatosis is identified. The adrenal glands appear normal. Compression fractures of T8 and T9 were not previously present. Because of the loss of disc space the findings are more consistent with discitis than metastatic disease. IMPRESSION: Multiple areas of linear opacification bilaterally that likely represent scarring and/or atelectasis. Tumor recurrence is thought to be unlikely in these areas. 2. New compression fractures since the previous examination of T8 and T9 as above. <Electronically signed by Fritz Barriga > 06/05/21 [id number]
== END ==
LOC: M RAD 15:53
PROVIDERS: ATTEND Surgery
DX: C34.90 Malignant neoplasm of unspecified part of unspecified bronchus or lung (principal)

== ENCOUNTER → 2021-06-10 | Outpatient (REF) | payer BC ==
[2021-06-11 10:10] LABS: PTH INTACT 81.8 PG/ML (18.5-88.0)
== END ==
LOC: M LAB REF 16:15
PROVIDERS: ATTEND Internal Medicine
DX: R61 Generalized hyperhidrosis (principal)

== ENCOUNTER → 2021-07-16 | Outpatient (REF) | payer BC | LOC: M LAB REF 12:52 | PROVIDERS: ATTEND Internal Medicine Medical Oncology | DX: E83.52 Hypercalcemia (principal) ==

== ENCOUNTER → 2021-09-10 | Outpatient (REF) | payer BC ==
[~2021-09-10] MED LIST changes: -CEFD1CAP8 PO; +CEFD300C41 PO; -DAPT500I IV; +DAPT500V8 IV; +POTA-151 PO; -POTA10TA14 PO; +POTA1TAB24 PO; -POTA20TA6 PO; -PROC10TA4 PO; +PROC10TA5 PO
== END ==
LOC: M LAB REF 16:26
PROVIDERS: ATTEND Internal Medicine
DX: E83.52 Hypercalcemia (principal)

== ENCOUNTER → 2021-09-25 | Outpatient (CLI) | payer BC ==
[~2021-09-25] MED LIST changes: -D31000TA2 PO; +VITA100093 PO
== END ==
LOC: M RAD 09:35
PROVIDERS: ATTEND Internal Medicine
DX: N25.81 Secondary hyperparathyroidism of renal origin (principal)

== ENCOUNTER → 2021-12-13 | Outpatient (REF) | payer BC ==
[~2021-12-13] MED LIST changes: +SERTRALINE
[2021-12-13 17:01] LABS: HEP C VIRUS AB INDEX SOURCE PT 0.1 INDEX (0.0-0.8)
[2021-12-13 17:03] LABS: HIV SCREEN CENTAUR SOURCE NEGATIVE (NEGATIVE)
== END ==
LOC: M ONCM 12:31
PROVIDERS: ATTEND Internal Medicine Infectious Disease
DX: Z01.89 Encounter for other specified special examinations (principal)

== ENCOUNTER → 2022-06-04 | Outpatient (CLI) | payer BC ==
[~2022-06-04] MED LIST changes: +ALBU6.7H6 INH; +COLE3.755 PO; +COLE625T17 PO; -COLE625TAB PO; -PROV108A INH; +SEMA1PEN2; -WELC3.75 PO
== END ==
LOC: M RAD 13:09
PROVIDERS: ATTEND Surgery
DX: C34.11 Malignant neoplasm of upper lobe, right bronchus or lung (principal)

== ENCOUNTER → 2022-06-11 | Outpatient (REF) | payer BC | LOC: M LAB REF 16:24 | PROVIDERS: ATTEND Internal Medicine | DX: M79.10 Myalgia, unspecified site (principal) ==

== ENCOUNTER → 2022-11-16 | Outpatient (REF) | payer BC ==
[~2022-11-16] MED LIST changes: +INSU100I6 SC; -LEVE1INJ5 SC; +NYST-38 SS; -NYST50SS SS
== END ==
LOC: M LAB REF 09:00
PROVIDERS: ATTEND Internal Medicine
DX: R19.7 Diarrhea, unspecified (principal)

== ENCOUNTER → 2022-11-27 | Outpatient (CLI) | payer BC ==
[~2022-11-27] MED LIST changes: +ACYC1TAB PO
== END ==
LOC: M RAD 14:50
PROVIDERS: ATTEND Internal Medicine Medical Oncology
DX: C90.00 Multiple myeloma not having achieved remission (principal); M47.812 Spondylosis without myelopathy or radiculopathy, cervical region; M47.814 Spondylosis without myelopathy or radiculopathy, thoracic region; M47.816 Spondylosis without myelopathy or radiculopathy, lumbar region

== ENCOUNTER 2022-12-26 12:34 | Inpatient (IN) | payer MEDICARE, BC ==
[~2022-12-26] VITALS: Ht 152.4 cm; Wt 81.6 kg
[~2022-12-26 12:34] MED LIST changes: +POMA4CAP PO
[2022-12-26 13:19] LABS: VENOUS BASE EXCESS -3.8 (-2.0-2.0); VENOUS HCO3 25.2 MMOL/L (23.0-27.0); VENOUS O2 SATURATION 56.3 % (60.0-80.0); VENOUS PARTIAL PRESSURE CO2 62.6 mmHg (38.0-50.0); VENOUS PARTIAL PRESSURE O2 36.1 mmHg (30.0-50.0); VENOUS PH 7.222 UNITS (7.330-7.430); VENOUS STANDARD HCO3 20.3 MMOL/L; VENOUS TOTAL CO2 27.1 MMOL/L (24.0-28.0)
[2022-12-26 13:26] LABS: BASO % 0.6 % (0.0-1.0); EOS # 0.2 10^3/uL (0.0-0.5); EOS % 3.4 % (0.0-3.0); HEMOGLOBIN 14.1 g/dl (12.0-15.5); LYMPH % 20.5 % (24.0-44.0); MEAN CORPUSCULAR HEMOGLOBIN 31.2 pg (27.0-33.0); MEAN CORPUSCULAR HGB CONC 30.7 g/dl (32.0-36.5); MEAN CORPUSCULAR VOLUME 101.8 fl (80.0-96.0); MONO # 0.5 10^3/uL (0.0-0.8); MONO % 10.6 % (2.0-8.0); NEUTROPHILS # 2.9 10^3/uL (1.5-8.5); NEUTROPHILS % 63.2 % (36.0-66.0); PLATELET COUNT, AUTOMATED 113 10^3/uL (150-450); RED BLOOD COUNT 4.52 10^6/uL (4.00-5.40); WHITE BLOOD COUNT 4.6 10^3/uL (4.0-10.0)
[2022-12-26 13:44] LABS: INR 1.37; PROTHROMBIN TIME 17.1 SECONDS (12.5-14.5)
[2022-12-26 13:55] LABS: CPK CREATINE PHOSPHOKINASE 18 U/L (34-145)
[2022-12-26 13:56] LABS: ALBUMIN 3.1 G/DL (3.2-5.2); ALKALINE PHOSPHATASE 135 U/L (46-116); ALT/SGPT 25 U/L (7.0-40); AST/SGOT 16 U/L (<34); BILIRUBIN,DIRECT 0.3 MG/DL (<0.4); BILIRUBIN,TOTAL 0.8 MG/DL (0.3-1.2); BLOOD UREA NITROGEN 27 MG/DL (9-23); CALCIUM LEVEL 9.3 MG/DL (8.3-10.6); CARBON DIOXIDE LEVEL 28 MMOL/L (20-31); CHLORIDE LEVEL 100 MMOL/L (98-107); CK-MB VALUE MASS < 1.0 NG/ML (<3.6); CREATININE FOR GFR 1.39 MG/DL (0.55-1.30); GLOMERULAR FILTRATION RATE 39.3 (>39); GLUCOSE, FASTING 146 MG/DL (74-106); MB/CK RELATIVE INDEX 5.55 (< OR =4); POTASSIUM SERUM 4.5 MMOL/L (3.5-5.1); SODIUM LEVEL 136 MMOL/L (136-145); TOTAL PROTEIN 6.7 G/DL (5.7-8.2)
[2022-12-26 13:57] LABS: THYROXINE (T4) 7.7 UG/DL (4.5-10.9)
[2022-12-26 13:58] LABS: THYROID STIMULATING HORMONE 3.505 uIU/ML (0.55-4.78)
[2022-12-26 14:09] LABS: ABG BASE EXCESS -1.5 (-2.0-2.0); ABG HCO3 25.7 MMOL/L (22.0-26.0); ABG O2 SATURATION 97.5 % (95.0-99.0); ABG PARTIAL PRESSURE CO2 53.6 mmHg (35.0-45.0); ABG PARTIAL PRESSURE O2 109.2 mmHg (75.0-100.0); ABG STANDARD HCO3 23.2 MMOL/L. (22.0-26.0); ABG TOTAL CO2 27.4 MMOL/L (23.0-31.0); ABG pH (ARTERIAL) 7.299 UNITS (7.350-7.450)
[2022-12-26] MEDS ORDERED: ISOVUE-370 76% 100ML VIAL As Ordered ONE (14:30)
[2022-12-26] MEDS ORDERED: metroNIDAZOLE 500 MG in IV 1 EA IV ONE (16:25)
[2022-12-26] MEDS ORDERED: cefTRIAXone SOD 2 GM in D5W MINI-BAG PLUS 50 ML IV ONE (16:25)
[2022-12-26] MEDS ORDERED: ZOLO100T PO (17:44)
[2022-12-26] MEDS ORDERED: HOME MED LIST COMPLETE! XX SCH (17:50)
[2022-12-26 22:50] VITALS: BP 137/69; TEMP 96.9; O2SAT 96
[2022-12-26] MEDS: LORazepam 1 MG TAB PO PRN (23:28)
[2022-12-27] VITALS (33 sets, daily range): BP systolic 112–147; BP diastolic 56–75; TEMP 96.3–97.6; O2SAT 60–98
[2022-12-27] MEDS: metroNIDAZOLE 500 MG in IV 1 EA IV SCH ×3 (01:25→18:39)
[2022-12-27] MEDS: RIVAROXABAN 15MG TAB (XARELTO) PO SCH ×2 (02:20→17:38)
[2022-12-27] MEDS: ACETAMINOPHEN TAB 650MG DOSE (2X325MG) PO PRN ×2 (02:40→20:04)
[2022-12-27 05:09] LABS: BASO % 1.3 % (0.0-1.0); EOS # 0.2 10^3/uL (0.0-0.5); EOS % 6.4 % (0.0-3.0); HEMATOCRIT 43.2 % (36.0-47.0); LYMPH # 0.5 10^3/uL (1.5-5.0); LYMPH % 21.5 % (24.0-44.0); MEAN CORPUSCULAR HEMOGLOBIN 30.7 pg (27.0-33.0); MEAN CORPUSCULAR HGB CONC 30.1 g/dl (32.0-36.5); MEAN CORPUSCULAR VOLUME 101.9 fl (80.0-96.0); MONO # 0.3 10^3/uL (0.0-0.8); MONO % 13.7 % (2.0-8.0); NEUTROPHILS # 1.3 10^3/uL (1.5-8.5); NEUTROPHILS % 54.5 % (36.0-66.0); RED BLOOD COUNT 4.24 10^6/uL (4.00-5.40); WHITE BLOOD COUNT 2.3 10^3/uL (4.0-10.0)
[2022-12-27 05:25] LABS: PLATELET COUNT, AUTOMATED 88 10^3/uL (150-450)
[2022-12-27 05:37] LABS: CALCIUM LEVEL 8.3 MG/DL (8.3-10.6); CREATININE FOR GFR 1.31 MG/DL (0.55-1.30); GLOMERULAR FILTRATION RATE 42.1 (>39); POTASSIUM SERUM 4.9 MMOL/L (3.5-5.1)
[2022-12-27] MEDS: LEVOTHYROXINE 75MCG TABLET (0.075MG) PO SCH (05:43)
[2022-12-27 06:10] LABS: ABG BASE EXCESS -1.2 (-2.0-2.0); ABG HCO3 27.5 MMOL/L (22.0-26.0); ABG O2 SATURATION 94.9 % (95.0-99.0); ABG PARTIAL PRESSURE O2 87.5 mmHg (75.0-100.0); ABG STANDARD HCO3 23.4 MMOL/L. (22.0-26.0); ABG TOTAL CO2 29.5 MMOL/L (23.0-31.0)
[2022-12-27 06:13] LABS: ABG pH (ARTERIAL) 7.245 UNITS (7.350-7.450)
[2022-12-27] MEDS: methylPREDNISolone 40MG 1ML VIAL IV SCH ×2 (10:19→17:38)
[2022-12-27] MEDS ORDERED: ACETAMINOPHEN 500 MG TAB PO ONE (10:40)
[2022-12-27] MEDS: LORazepam 1 MG TAB PO PRN ×2 (10:54→20:04)
[2022-12-27] MEDS: FLECAINIDE 50MG TABLET PO SCH (10:54)
[2022-12-27] MEDS: bisoproloL fumarate 10 MG TAB PO SCH (10:55)
[2022-12-27] MEDS: ACYCLOVIR 200 MG CAPSULE PO SCH ×2 (10:55→20:04)
[2022-12-27 12:06] LABS: ABG BASE EXCESS -5.4 (-2.0-2.0); ABG HCO3 21.4 MMOL/L (22.0-26.0); ABG O2 SATURATION 93.4 % (95.0-99.0); ABG PARTIAL PRESSURE CO2 46.9 mmHg (35.0-45.0); ABG PARTIAL PRESSURE O2 73.2 mmHg (75.0-100.0); ABG STANDARD HCO3 19.9 MMOL/L. (22.0-26.0); ABG TOTAL CO2 22.8 MMOL/L (23.0-31.0); ABG pH (ARTERIAL) 7.277 UNITS (7.350-7.450)
[2022-12-27] MEDS ORDERED: VANCOMYCIN HCL 1,000 MG, VIAL MATE ADAPTER 1 EACH in D5W 250 ML IV ONE (14:00)
[2022-12-27] MEDS ORDERED: VANCOMYCIN HCL 750 MG, VIAL MATE ADAPTER 1 EACH in D5W 250 ML IV ONE (15:00)
[2022-12-27 15:46] LABS: ABG BASE EXCESS -2.8 (-2.0-2.0); ABG HCO3 24.5 MMOL/L (22.0-26.0); ABG O2 SATURATION 98.1 % (95.0-99.0); ABG PARTIAL PRESSURE CO2 53.1 mmHg (35.0-45.0); ABG PARTIAL PRESSURE O2 112.6 mmHg (75.0-100.0); ABG STANDARD HCO3 22.1 MMOL/L. (22.0-26.0); ABG TOTAL CO2 26.1 MMOL/L (23.0-31.0); ABG pH (ARTERIAL) 7.282 UNITS (7.350-7.450)
[2022-12-27] MEDS: NYSTATIN 100,000 UNITS/GM TOPICAL PWD 15GM TOP SCH (16:12)
[2022-12-27] MEDS: SITagliptin 50 MG TAB (JANUVIA) PO SCH (16:12)
[2022-12-27] MEDS: PANTOPRAZOLE 40MG TAB (PROTONIX) PO SCH (16:13)
[2022-12-27] MEDS: DIGOXIN 0.125 MG TAB PO SCH (16:13)
[2022-12-27] MEDS: SERTRALINE 100 MG TAB PO SCH (16:13)
[2022-12-27] MEDS: MULTIVITAMINS/MINERALS THERAP 1 TAB PO SCH (16:13)
[2022-12-27] MEDS ORDERED: GLUCAGON INJ 1MG VIAL SC PRN (17:10)
[2022-12-27] MEDS ORDERED: GLUCOSE 4GM CHEW TABLET PO PRN (17:10)
[2022-12-27] MEDS ORDERED: SODIUM CHLORIDE 0.9% INJ 10 ML SYR IV PRN (17:10)
[2022-12-27] MEDS ORDERED: ONDANSETRON 4MG 2ML VIAL IV ONE (17:10)
[2022-12-27] MEDS ORDERED: DEXTROSE 50% 50ML SYRINGE IV PRN (17:10)
[2022-12-27] MEDS: cefTRIAXone SOD 2 GM in D5W MINI-BAG PLUS 50 ML IV SCH (17:38)
[2022-12-27] MEDS: LIDOCAINE 2% 5ML JELLY UROJET TOP PRN (22:15)
[2022-12-28] VITALS (8 sets, daily range): BP systolic 124–148; BP diastolic 59–70; TEMP 97.2–98.7; O2SAT 89–98
[2022-12-28] MEDS: methylPREDNISolone 40MG 1ML VIAL IV SCH ×3 (01:51→16:49)
[2022-12-28] MEDS: metroNIDAZOLE 500 MG in IV 1 EA IV SCH ×3 (01:51→17:38)
[2022-12-28 05:43] LABS: BASO % 0.6 % (0.0-1.0); EOS % 0.6 % (0.0-3.0); HEMATOCRIT 42.1 % (36.0-47.0); HEMOGLOBIN 12.8 g/dl (12.0-15.5); LYMPH # 0.2 10^3/uL (1.5-5.0); LYMPH % 12.2 % (24.0-44.0); MEAN CORPUSCULAR HEMOGLOBIN 30.6 pg (27.0-33.0); MEAN CORPUSCULAR HGB CONC 30.4 g/dl (32.0-36.5); MEAN CORPUSCULAR VOLUME 100.7 fl (80.0-96.0); MONO # 0.1 10^3/uL (0.0-0.8); MONO % 5.8 % (2.0-8.0); NEUTROPHILS # 1.2 10^3/uL (1.5-8.5); NEUTROPHILS % 79.5 % (36.0-66.0); RED BLOOD COUNT 4.18 10^6/uL (4.00-5.40); WHITE BLOOD COUNT 1.6 10^3/uL (4.0-10.0)
[2022-12-28 05:44] LABS: PLATELET COUNT, AUTOMATED 77 10^3/uL (150-450)
[2022-12-28 05:52] LABS: ABG BASE EXCESS -1.6 (-2.0-2.0); ABG HCO3 25.2 MMOL/L (22.0-26.0); ABG O2 SATURATION 98.8 % (95.0-99.0); ABG PARTIAL PRESSURE CO2 50.9 mmHg (35.0-45.0); ABG PARTIAL PRESSURE O2 138.3 mmHg (75.0-100.0); ABG STANDARD HCO3 23.2 MMOL/L. (22.0-26.0); ABG TOTAL CO2 26.7 MMOL/L (23.0-31.0); ABG pH (ARTERIAL) 7.312 UNITS (7.350-7.450)
[2022-12-28 06:11] LABS: BLOOD UREA NITROGEN 19 MG/DL (9-23); CALCIUM LEVEL 8.3 MG/DL (8.3-10.6); CARBON DIOXIDE LEVEL 28 MMOL/L (20-31); CHLORIDE LEVEL 104 MMOL/L (98-107); CREATININE FOR GFR 0.91 MG/DL (0.55-1.30); DIGOXIN LEVEL 1.2 NG/ML (0.8-2.0); GLOMERULAR FILTRATION RATE > 60.0 (>39); GLUCOSE, FASTING 152 MG/DL (74-106); SODIUM LEVEL 137 MMOL/L (136-145)
[2022-12-28] MEDS: LEVOTHYROXINE 75MCG TABLET (0.075MG) PO SCH (06:41)
[2022-12-28] MEDS: LORazepam 1 MG TAB PO PRN ×2 (07:37→21:33)
[2022-12-28] MEDS ORDERED: MOM 30ML SUSPENSION UDC PO SCH (09:00)
[2022-12-28] MEDS ORDERED: VANCOMYCIN HCL 1,000 MG, VIAL MATE ADAPTER 1 EACH in D5W 250 ML IV SCH ×2 (09:00→11:00)
[2022-12-28] MEDS ORDERED: DEXTROSE 50% 50ML SYRINGE IV PRN (09:10)
[2022-12-28] MEDS ORDERED: GLUCOSE 4GM CHEW TABLET PO PRN (09:10)
[2022-12-28] MEDS ORDERED: GLUCAGON INJ 1MG VIAL SC PRN (09:10)
[2022-12-28] MEDS: NYSTATIN 100,000 UNITS/GM TOPICAL PWD 15GM TOP SCH (09:23)
[2022-12-28] MEDS: MULTIVITAMINS/MINERALS THERAP 1 TAB PO SCH (09:23)
[2022-12-28] MEDS: PANTOPRAZOLE 40MG TAB (PROTONIX) PO SCH (09:24)
[2022-12-28] MEDS: FLECAINIDE 50MG TABLET PO SCH (09:24)
[2022-12-28] MEDS: bisoproloL fumarate 10 MG TAB PO SCH (09:24)
[2022-12-28] MEDS: ACYCLOVIR 200 MG CAPSULE PO SCH ×2 (09:24→21:32)
[2022-12-28] MEDS: DIGOXIN 0.125 MG TAB PO SCH (09:24)
[2022-12-28] MEDS: SITagliptin 50 MG TAB (JANUVIA) PO SCH (09:24)
[2022-12-28] MEDS: SERTRALINE 100 MG TAB PO SCH (09:25)
[2022-12-28] MEDS: LIDOCAINE 2% 5ML JELLY UROJET TOP PRN (09:39)
[2022-12-28] MEDS: INSULIN LISPRO (NovoLOG) PER UNIT SC SCH ×4 (09:43→21:00)
[2022-12-28] MEDS: cefTRIAXone SOD 2 GM in D5W MINI-BAG PLUS 50 ML IV SCH (16:50)
[2022-12-28] MEDS: RIVAROXABAN 15MG TAB (XARELTO) PO SCH (17:17)
[2022-12-28] MEDS: IPRATROPIUM 0.5MG/ALBUTEROL 2.5MG INH SOL UD 3ML (DUONEB) NEB SCH (19:43)
[2022-12-28] MEDS: SENOKOT S TAB PO SCH (21:32)
[2022-12-29] VITALS (8 sets, daily range): BP systolic 141–172; BP diastolic 68–86; TEMP 97.1–97.9; O2SAT 91–99
[2022-12-29] MEDS: IPRATROPIUM 0.5MG/ALBUTEROL 2.5MG INH SOL UD 3ML (DUONEB) NEB SCH ×4 (01:01→19:25)
[2022-12-29] MEDS: methylPREDNISolone 40MG 1ML VIAL IV SCH ×2 (01:10→13:18)
[2022-12-29] MEDS: ACETAMINOPHEN TAB 650MG DOSE (2X325MG) PO PRN ×2 (01:10→21:40)
[2022-12-29] MEDS: metroNIDAZOLE 500 MG in IV 1 EA IV SCH ×3 (01:10→18:40)
[2022-12-29] MEDS: LEVOTHYROXINE 75MCG TABLET (0.075MG) PO SCH (06:32)
[2022-12-29 08:11] LABS: HEMOGLOBIN 12.5 g/dl (12.0-15.5); LYMPH # 0.3 10^3/uL (1.5-5.0); LYMPH % 15.5 % (24.0-44.0); MEAN CORPUSCULAR HEMOGLOBIN 30.8 pg (27.0-33.0); MEAN CORPUSCULAR HGB CONC 30.5 g/dl (32.0-36.5); MONO # 0.2 10^3/uL (0.0-0.8); NEUTROPHILS # 1.4 10^3/uL (1.5-8.5); NEUTROPHILS % 73.8 % (36.0-66.0); RED BLOOD COUNT 4.06 10^6/uL (4.00-5.40); WHITE BLOOD COUNT 1.9 10^3/uL (4.0-10.0)
[2022-12-29 08:13] LABS: PLATELET COUNT, AUTOMATED 89 10^3/uL (150-450)
[2022-12-29] MEDS: SENOKOT S TAB PO SCH ×2 (09:00→21:00)
[2022-12-29 09:03] LABS: BLOOD UREA NITROGEN 19 MG/DL (9-23); CALCIUM LEVEL 8.8 MG/DL (8.3-10.6); CARBON DIOXIDE LEVEL 29 MMOL/L (20-31); CHLORIDE LEVEL 104 MMOL/L (98-107); CREATININE FOR GFR 0.86 MG/DL (0.55-1.30); GLOMERULAR FILTRATION RATE > 60.0 (>39); GLUCOSE, FASTING 201 MG/DL (74-106); POTASSIUM SERUM 4.6 MMOL/L (3.5-5.1); SODIUM LEVEL 138 MMOL/L (136-145); VANCOMYCIN LEVEL TROUGH 8.7 UG/ML (10.0-20.0)
[2022-12-29] MEDS: PANTOPRAZOLE 40MG TAB (PROTONIX) PO SCH (09:44)
[2022-12-29] MEDS: SITagliptin 50 MG TAB (JANUVIA) PO SCH (09:44)
[2022-12-29] MEDS: INSULIN LISPRO (NovoLOG) PER UNIT SC SCH ×4 (09:44→21:00)
[2022-12-29] MEDS: MULTIVITAMINS/MINERALS THERAP 1 TAB PO SCH (09:44)
[2022-12-29] MEDS: FLECAINIDE 50MG TABLET PO SCH (09:44)
[2022-12-29] MEDS: bisoproloL fumarate 10 MG TAB PO SCH (09:45)
[2022-12-29] MEDS: DIGOXIN 0.125 MG TAB PO SCH (09:45)
[2022-12-29] MEDS: SERTRALINE 100 MG TAB PO SCH (09:45)
[2022-12-29] MEDS: ACYCLOVIR 200 MG CAPSULE PO SCH ×2 (09:45→21:40)
[2022-12-29] MEDS: NYSTATIN 100,000 UNITS/GM TOPICAL PWD 15GM TOP SCH (10:07)
[2022-12-29] MEDS: cefTRIAXone SOD 2 GM in D5W MINI-BAG PLUS 50 ML IV SCH (17:49)
[2022-12-29] MEDS: RIVAROXABAN 15MG TAB (XARELTO) PO SCH (17:49)
[2022-12-29] MEDS: LORazepam 1 MG TAB PO PRN (21:46)
[2022-12-30] VITALS (14 sets, daily range): BP systolic 148–178; BP diastolic 68–88; TEMP 97.2–98.4; O2SAT 88–97
[2022-12-30] MEDS: IPRATROPIUM 0.5MG/ALBUTEROL 2.5MG INH SOL UD 3ML (DUONEB) NEB SCH ×4 (01:10→19:27)
[2022-12-30] MEDS: methylPREDNISolone 40MG 1ML VIAL IV SCH (01:42)
[2022-12-30] MEDS: metroNIDAZOLE 500 MG in IV 1 EA IV SCH ×2 (01:42→09:19)
[2022-12-30 06:02] LABS: EOS % 0.5 % (0.0-3.0); HEMATOCRIT 43.3 % (36.0-47.0); HEMOGLOBIN 13.2 g/dl (12.0-15.5); LYMPH # 0.3 10^3/uL (1.5-5.0); MEAN CORPUSCULAR HEMOGLOBIN 30.6 pg (27.0-33.0); MEAN CORPUSCULAR HGB CONC 30.5 g/dl (32.0-36.5); MEAN CORPUSCULAR VOLUME 100.2 fl (80.0-96.0); MONO # 0.2 10^3/uL (0.0-0.8); MONO % 9.8 % (2.0-8.0); NEUTROPHILS # 1.4 10^3/uL (1.5-8.5); NEUTROPHILS % 73.7 % (36.0-66.0); PLATELET COUNT, AUTOMATED 101 10^3/uL (150-450); RED BLOOD COUNT 4.32 10^6/uL (4.00-5.40); WHITE BLOOD COUNT 1.9 10^3/uL (4.0-10.0)
[2022-12-30] MEDS: LEVOTHYROXINE 75MCG TABLET (0.075MG) PO SCH (06:20)
[2022-12-30 06:34] LABS: BLOOD UREA NITROGEN 18 MG/DL (9-23); CALCIUM LEVEL 9.1 MG/DL (8.3-10.6); CARBON DIOXIDE LEVEL 29 MMOL/L (20-31); CHLORIDE LEVEL 106 MMOL/L (98-107); CREATININE FOR GFR 0.74 MG/DL (0.55-1.30); GLOMERULAR FILTRATION RATE > 60.0 (>39); GLUCOSE, FASTING 197 MG/DL (74-106); PHOSPHORUS LEVEL 2.4 MG/DL (2.4-5.1); POTASSIUM SERUM 4.8 MMOL/L (3.5-5.1); SODIUM LEVEL 140 MMOL/L (136-145)
[2022-12-30] MEDS: ACETAMINOPHEN TAB 650MG DOSE (2X325MG) PO PRN (07:50)
[2022-12-30] MEDS: bisoproloL fumarate 10 MG TAB PO SCH (07:51)
[2022-12-30] MEDS: VALSARTAN 80 MG TAB (DIOVAN) PO SCH (07:51)
[2022-12-30] MEDS: LORazepam 1 MG TAB PO PRN ×2 (07:57→20:52)
[2022-12-30] MEDS ORDERED: CEFDINIR 300 MG CAP (OMNICEF) PO SCH (09:00)
[2022-12-30] MEDS: NYSTATIN 100,000 UNITS/GM TOPICAL PWD 15GM TOP SCH (09:19)
[2022-12-30] MEDS: FLECAINIDE 50MG TABLET PO SCH (09:19)
[2022-12-30] MEDS: MULTIVITAMINS/MINERALS THERAP 1 TAB PO SCH (09:20)
[2022-12-30] MEDS: SENOKOT S TAB PO SCH ×2 (09:20→20:45)
[2022-12-30] MEDS: INSULIN LISPRO (NovoLOG) PER UNIT SC SCH ×4 (09:20→20:46)
[2022-12-30] MEDS: ACYCLOVIR 200 MG CAPSULE PO SCH ×2 (09:21→20:52)
[2022-12-30] MEDS: PANTOPRAZOLE 40MG TAB (PROTONIX) PO SCH (09:21)
[2022-12-30] MEDS: SITagliptin 50 MG TAB (JANUVIA) PO SCH (09:21)
[2022-12-30] MEDS: SERTRALINE 100 MG TAB PO SCH (09:21)
[2022-12-30] MEDS: DIGOXIN 0.125 MG TAB PO SCH (09:21)
[2022-12-30] MEDS: predniSONE 20 MG TAB PO SCH (11:17)
[2022-12-30] MEDS ORDERED: metroNIDAZOLE (FLAGYL) 500MG TABLET PO SCH (14:00)
[2022-12-30] MEDS ORDERED: POMA4CAP PO (14:55)
[2022-12-30 14:59] LABS: ABG BASE EXCESS 1.9 (-2.0-2.0); ABG HCO3 26.6 MMOL/L (22.0-26.0); ABG PARTIAL PRESSURE CO2 41.7 mmHg (35.0-45.0); ABG PARTIAL PRESSURE O2 52.9 mmHg (75.0-100.0); ABG STANDARD HCO3 25.9 MMOL/L. (22.0-26.0); ABG TOTAL CO2 27.8 MMOL/L (23.0-31.0); ABG pH (ARTERIAL) 7.422 UNITS (7.350-7.450)
[2022-12-30] MEDS: LevoFLOXacin 750 MG TABLET PO SCH (18:36)
[2022-12-30] MEDS: RIVAROXABAN 15MG TAB (XARELTO) PO SCH (18:36)
[2022-12-31] VITALS (15 sets, daily range): BP systolic 118–149; BP diastolic 58–78; TEMP 96.6–98.6; O2SAT 87–98
[2022-12-31] MEDS: IPRATROPIUM 0.5MG/ALBUTEROL 2.5MG INH SOL UD 3ML (DUONEB) NEB SCH ×4 (00:16→20:05)
[2022-12-31] MEDS: RAMELTEON 8 MG TAB (ROZEREM) PO PRN ×2 (00:40→20:55)
[2022-12-31 06:07] LABS: ABG BASE EXCESS 1.8 (-2.0-2.0); ABG HCO3 26.8 MMOL/L (22.0-26.0); ABG O2 SATURATION 98.3 % (95.0-99.0); ABG PARTIAL PRESSURE CO2 43.7 mmHg (35.0-45.0); ABG PARTIAL PRESSURE O2 108.2 mmHg (75.0-100.0); ABG STANDARD HCO3 26.1 MMOL/L. (22.0-26.0); ABG TOTAL CO2 28.2 MMOL/L (23.0-31.0); ABG pH (ARTERIAL) 7.406 UNITS (7.350-7.450)
[2022-12-31] MEDS: LEVOTHYROXINE 75MCG TABLET (0.075MG) PO SCH (06:26)
[2022-12-31 06:52] LABS: BASO % 0.4 % (0.0-1.0); EOS % 1.2 % (0.0-3.0); HEMOGLOBIN 12.7 g/dl (12.0-15.5); LYMPH # 0.8 10^3/uL (1.5-5.0); LYMPH % 32.8 % (24.0-44.0); MEAN CORPUSCULAR HEMOGLOBIN 30.8 pg (27.0-33.0); MEAN CORPUSCULAR VOLUME 99.5 fl (80.0-96.0); MONO # 0.5 10^3/uL (0.0-0.8); MONO % 19.9 % (2.0-8.0); NEUTROPHILS # 1.1 10^3/uL (1.5-8.5); NEUTROPHILS % 44.9 % (36.0-66.0); PLATELET COUNT, AUTOMATED 104 10^3/uL (150-450); RED BLOOD COUNT 4.12 10^6/uL (4.00-5.40); WHITE BLOOD COUNT 2.4 10^3/uL (4.0-10.0)
[2022-12-31 07:21] LABS: BLOOD UREA NITROGEN 18 MG/DL (9-23); CALCIUM LEVEL 9.5 MG/DL (8.3-10.6); CARBON DIOXIDE LEVEL 30 MMOL/L (20-31); CHLORIDE LEVEL 107 MMOL/L (98-107); CREATININE FOR GFR 0.78 MG/DL (0.55-1.30); GLOMERULAR FILTRATION RATE > 60.0 (>39); GLUCOSE, FASTING 101 MG/DL (74-106); SODIUM LEVEL 142 MMOL/L (136-145)
[2022-12-31] MEDS: INSULIN LISPRO (NovoLOG) PER UNIT SC SCH ×4 (07:30→21:00)
[2022-12-31] MEDS: SITagliptin 50 MG TAB (JANUVIA) PO SCH (08:20)
[2022-12-31] MEDS: VALSARTAN 80 MG TAB (DIOVAN) PO SCH (08:20)
[2022-12-31] MEDS: bisoproloL fumarate 10 MG TAB PO SCH (08:21)
[2022-12-31] MEDS: DIGOXIN 0.125 MG TAB PO SCH (08:21)
[2022-12-31] MEDS: SENOKOT S TAB PO SCH ×2 (08:21→20:55)
[2022-12-31] MEDS: MULTIVITAMINS/MINERALS THERAP 1 TAB PO SCH (08:22)
[2022-12-31] MEDS: predniSONE 20 MG TAB PO SCH (08:22)
[2022-12-31] MEDS: ACYCLOVIR 200 MG CAPSULE PO SCH ×2 (08:22→20:55)
[2022-12-31] MEDS: PANTOPRAZOLE 40MG TAB (PROTONIX) PO SCH (08:22)
[2022-12-31] MEDS: SERTRALINE 100 MG TAB PO SCH (08:22)
[2022-12-31] MEDS: FLECAINIDE 50MG TABLET PO SCH (08:22)
[2022-12-31] MEDS: NYSTATIN 100,000 UNITS/GM TOPICAL PWD 15GM TOP SCH (08:23)
[2022-12-31] MEDS: LORazepam 1 MG TAB PO PRN ×2 (14:12→20:56)
[2022-12-31 15:08] LABS: BODY FLUID CULTURE Not indicated. (.); LEGIONELLA ANTIGEN URINE Negative (Negative); ORGANISM ID Not indicated. (.); SPECIMEN SOURCE Urine (.); URINE STREP PNEUMONIAE ANTIGEN Negative (Negative)
[2022-12-31] MEDS: RIVAROXABAN 15MG TAB (XARELTO) PO SCH (17:55)
[2022-12-31] MEDS: LevoFLOXacin 750 MG TABLET PO SCH (17:55)
[2023-01-01] VITALS (15 sets, daily range): BP systolic 162–178; BP diastolic 80–82; TEMP 97–97.2; O2SAT 90–96
[2023-01-01] MEDS: IPRATROPIUM 0.5MG/ALBUTEROL 2.5MG INH SOL UD 3ML (DUONEB) NEB SCH ×2 (02:00→07:54)
[2023-01-01] MEDS: LORazepam 1 MG TAB PO PRN ×2 (03:15→10:38)
[2023-01-01] MEDS: LEVOTHYROXINE 75MCG TABLET (0.075MG) PO SCH (05:26)
[2023-01-01 05:51] LABS: BASO % 0.5 % (0.0-1.0); EOS # 0.1 10^3/uL (0.0-0.5); EOS % 4.7 % (0.0-3.0); HEMATOCRIT 41.2 % (36.0-47.0); HEMOGLOBIN 12.7 g/dl (12.0-15.5); LYMPH # 0.7 10^3/uL (1.5-5.0); LYMPH % 34.7 % (24.0-44.0); MEAN CORPUSCULAR HEMOGLOBIN 30.7 pg (27.0-33.0); MEAN CORPUSCULAR HGB CONC 30.8 g/dl (32.0-36.5); MEAN CORPUSCULAR VOLUME 99.5 fl (80.0-96.0); MONO # 0.4 10^3/uL (0.0-0.8); MONO % 18.8 % (2.0-8.0); NEUTROPHILS % 40.8 % (36.0-66.0); PLATELET COUNT, AUTOMATED 110 10^3/uL (150-450); RED BLOOD COUNT 4.14 10^6/uL (4.00-5.40); WHITE BLOOD COUNT 2.1 10^3/uL (4.0-10.0)
[2023-01-01 06:07] LABS: BLOOD UREA NITROGEN 19 MG/DL (9-23); CALCIUM LEVEL 9.1 MG/DL (8.3-10.6); CARBON DIOXIDE LEVEL 30 MMOL/L (20-31); CHLORIDE LEVEL 108 MMOL/L (98-107); CREATININE FOR GFR 0.76 MG/DL (0.55-1.30); GLOMERULAR FILTRATION RATE > 60.0 (>39); GLUCOSE, FASTING 120 MG/DL (74-106); POTASSIUM SERUM 3.9 MMOL/L (3.5-5.1); SODIUM LEVEL 142 MMOL/L (136-145)
[2023-01-01 07:02] LABS: NEUTROPHILS # 0.9 10^3/uL (1.5-8.5)
[2023-01-01] MEDS ORDERED: VANC125C3 PO ×2 (08:05→08:07)
[2023-01-01] MEDS ORDERED: DIOV80TA3 PO (08:05)
[2023-01-01] MEDS ORDERED: PRED10TA2 PO (08:05)
[2023-01-01] MEDS ORDERED: LEVO1TAB40 PO (08:05)
[2023-01-01] MEDS: INSULIN LISPRO (NovoLOG) PER UNIT SC SCH ×2 (08:07→12:00)
[2023-01-01] MEDS: VALSARTAN 80 MG TAB (DIOVAN) PO SCH (08:08)
[2023-01-01] MEDS: ACETAMINOPHEN TAB 650MG DOSE (2X325MG) PO PRN (08:09)
[2023-01-01] MEDS: bisoproloL fumarate 10 MG TAB PO SCH (08:09)
[2023-01-01] MEDS: PANTOPRAZOLE 40MG TAB (PROTONIX) PO SCH (08:10)
[2023-01-01] MEDS: SITagliptin 50 MG TAB (JANUVIA) PO SCH (08:10)
[2023-01-01] MEDS: ACYCLOVIR 200 MG CAPSULE PO SCH (08:10)
[2023-01-01] MEDS: MULTIVITAMINS/MINERALS THERAP 1 TAB PO SCH (08:10)
[2023-01-01] MEDS: predniSONE 20 MG TAB PO SCH (08:10)
[2023-01-01] MEDS: SENOKOT S TAB PO SCH (08:11)
[2023-01-01] MEDS: SERTRALINE 100 MG TAB PO SCH (08:11)
[2023-01-01] MEDS: DIGOXIN 0.125 MG TAB PO SCH (08:12)
[2023-01-01] MEDS: NYSTATIN 100,000 UNITS/GM TOPICAL PWD 15GM TOP SCH (08:13)
[2023-01-01] MEDS: FLECAINIDE 50MG TABLET PO SCH (08:23)
[2023-01-01] MEDS ORDERED: POMA3CAP PO (15:33)
== END 2023-01-01 12:36 | disposition home health service (06) | DRG 871 ==
LOC: EDBD 12:34 → M ED 12:34 → M ED INP 17:03 → ENRESERV 22:04 → M PCU 22:42 → M ICU 12-27 08:22 → M PCU 12-28 18:45
PROVIDERS: ADMIT Internal Medicine Nephrology; ATTEND Internal Medicine
DX: A41.89 Other specified sepsis (principal); J96.21 Acute and chronic respiratory failure with hypoxia; J96.22 Acute and chronic respiratory failure with hypercapnia; J18.9 Pneumonia, unspecified organism; C90.00 Multiple myeloma not having achieved remission; I50.32 Chronic diastolic (congestive) heart failure; I13.0 Hypertensive heart and chronic kidney disease with heart failure and stage 1 through stage 4 chronic kidney disease, or unspecified chronic kidney disease; E87.4 Mixed disorder of acid-base balance; J44.0 Chronic obstructive pulmonary disease with (acute) lower respiratory infection; K81.1 Chronic cholecystitis; I48.0 Paroxysmal atrial fibrillation; I49.5 Sick sinus syndrome; E03.9 Hypothyroidism, unspecified; F41.9 Anxiety disorder, unspecified; F32.A Depression, unspecified; I27.20 Pulmonary hypertension, unspecified; E11.42 Type 2 diabetes mellitus with diabetic polyneuropathy; D69.6 Thrombocytopenia, unspecified; R53.81 Other malaise; E78.5 Hyperlipidemia, unspecified; M81.0 Age-related osteoporosis without current pathological fracture; I50.810 Right heart failure, unspecified; N18.30 Chronic kidney disease, stage 3 unspecified; R29.6 Repeated falls; F40.240 Claustrophobia; E11.22 Type 2 diabetes mellitus with diabetic chronic kidney disease; Z92.21 Personal history of antineoplastic chemotherapy; Z90.2 Acquired absence of lung [part of]; Z79.01 Long term (current) use of anticoagulants; Z79.4 Long term (current) use of insulin; Z95.0 Presence of cardiac pacemaker; Z79.890 Hormone replacement therapy; Z79.899 Other long term (current) drug therapy; Z91.040 Latex allergy status; Z88.0 Allergy status to penicillin; Z88.5 Allergy status to narcotic agent; Z87.891 Personal history of nicotine dependence; Z88.8 Allergy status to other drugs, medicaments and biological substances; Z85.118 Personal history of other malignant neoplasm of bronchus and lung; Z91.013 Allergy to seafood; Z98.41 Cataract extraction status, right eye; Z98.42 Cataract extraction status, left eye

== ENCOUNTER 2023-02-15 07:26 | Emergency (ER) | payer BC ==
[~2023-02-15 07:26] MED LIST changes: +DIOV80TA3 PO; -K-TA10TA PO; +LEVO1TAB40 PO; +ONDA8TAB8 PO; +POMA3CAP PO; +POTA-164 PO; +PRED10TA2 PO; +ZOLO100T PO
[2023-02-15] MEDS ORDERED: NS 1,000 ML IV SCH (07:35)
[2023-02-15] MEDS ORDERED: SODIUM CHLORIDE 0.9% INJ 10 ML SYR IV PRN (08:40)
[2023-02-15] MEDS ORDERED: SODIUM CHLORIDE 0.9% INJ 10 ML SYR IV SCH (09:00)
[2023-02-15 09:10] LABS: BASO % 0.3 % (0.0-1.0); EOS # 0.1 10^3/uL (0.0-0.5); EOS % 1.3 % (0.0-3.0); HEMATOCRIT 45.1 % (36.0-47.0); HEMOGLOBIN 14.7 g/dl (12.0-15.5); LYMPH # 1.2 10^3/uL (1.5-5.0); LYMPH % 13.8 % (24.0-44.0); MEAN CORPUSCULAR HEMOGLOBIN 30.8 pg (27.0-33.0); MEAN CORPUSCULAR HGB CONC 32.6 g/dl (32.0-36.5); MEAN CORPUSCULAR VOLUME 94.4 fl (80.0-96.0); MONO # 0.6 10^3/uL (0.0-0.8); MONO % 6.3 % (2.0-8.0); NEUTROPHILS % 77.6 % (36.0-66.0); PLATELET COUNT, AUTOMATED 191 10^3/uL (150-450); RED BLOOD COUNT 4.78 10^6/uL (4.00-5.40)
[2023-02-15 09:34] LABS: ALBUMIN 3.2 G/DL (3.2-5.2); ALKALINE PHOSPHATASE 81 U/L (46-116); ALT/SGPT 9 U/L (7.0-40); AST/SGOT 12 U/L (<34); BILIRUBIN,TOTAL 0.7 MG/DL (0.3-1.2); BLOOD UREA NITROGEN 14 MG/DL (9-23); CALCIUM LEVEL 9.7 MG/DL (8.3-10.6); CARBON DIOXIDE LEVEL 25 MMOL/L (20-31); CHLORIDE LEVEL 104 MMOL/L (98-107); CREATININE FOR GFR 0.72 MG/DL (0.55-1.30); GLOMERULAR FILTRATION RATE > 60.0 (>39); GLUCOSE, FASTING 161 MG/DL (74-106); POTASSIUM SERUM 3.7 MMOL/L (3.5-5.1); SODIUM LEVEL 137 MMOL/L (136-145); TOTAL PROTEIN 6.3 G/DL (5.7-8.2)
[2023-02-15] MEDS ORDERED: wheelchair (10:10)
[2023-02-15 10:32] VITALS: BP 159/84; TEMP 97.7; O2SAT 94
[2023-02-18 07:13] LABS: FREE KAPPA LIGHT CHAINS SERUM 16.3 mg/L (3.3-19.4); FREE LAMBDA LIGHT CHAINS SERUM 132.7 mg/L (5.7-26.3); KAPPA/LAMBDA RATIO SERUM 0.12 (0.26-1.65)
== END 2023-02-15 10:42 | disposition home or self-care (01) ==
LOC: M ED 07:26
DX: C90.00 Multiple myeloma not having achieved remission (principal); S50.02XA Contusion of left elbow, initial encounter; S60.222A Contusion of left hand, initial encounter; W06.XXXA Fall from bed, initial encounter; Y92.89 Other specified places as the place of occurrence of the external cause; Y93.89 Activity, other specified; Y99.8 Other external cause status; Z99.81 Dependence on supplemental oxygen; Z79.52 Long term (current) use of systemic steroids; Z79.899 Other long term (current) drug therapy; Z79.4 Long term (current) use of insulin; Z88.0 Allergy status to penicillin; Z88.5 Allergy status to narcotic agent; Z88.8 Allergy status to other drugs, medicaments and biological substances; Z91.013 Allergy to seafood; Z91.040 Latex allergy status

== ENCOUNTER → 2023-03-05 | Outpatient (REF) | payer BC ==
[~2023-03-05] MED LIST changes: +wheelchair
[2023-03-05 13:11] LABS: BASO % 0.6 % (0.0-1.0); EOS # 0.1 10^3/uL (0.0-0.5); EOS % 2.4 % (0.0-3.0); HEMATOCRIT 43.9 % (36.0-47.0); HEMOGLOBIN 14.4 g/dl (12.0-15.5); LYMPH # 1.4 10^3/uL (1.5-5.0); MEAN CORPUSCULAR HEMOGLOBIN 31.4 pg (27.0-33.0); MEAN CORPUSCULAR HGB CONC 32.8 g/dl (32.0-36.5); MEAN CORPUSCULAR VOLUME 95.6 fl (80.0-96.0); MONO # 0.4 10^3/uL (0.0-0.8); MONO % 7.9 % (2.0-8.0); NEUTROPHILS # 3.4 10^3/uL (1.5-8.5); NEUTROPHILS % 62.9 % (36.0-66.0); PLATELET COUNT, AUTOMATED 146 10^3/uL (150-450); RED BLOOD COUNT 4.59 10^6/uL (4.00-5.40); WHITE BLOOD COUNT 5.4 10^3/uL (4.0-10.0)
[2023-03-05 13:43] LABS: ALBUMIN 3.1 G/DL (3.2-5.2); ALKALINE PHOSPHATASE 82 U/L (46-116); ALT/SGPT 14 U/L (7.0-40); AST/SGOT 10 U/L (<34); BILIRUBIN,TOTAL 0.4 MG/DL (0.3-1.2); BLOOD UREA NITROGEN 18 MG/DL (9-23); CALCIUM LEVEL 9.9 MG/DL (8.3-10.6); CARBON DIOXIDE LEVEL 28 MMOL/L (20-31); CHLORIDE LEVEL 103 MMOL/L (98-107); CREATININE FOR GFR 0.72 MG/DL (0.55-1.30); GLOMERULAR FILTRATION RATE > 60.0 (>39); GLUCOSE, FASTING 99 MG/DL (74-106); IMMUNOGLOBULIN A 148.6 MG/DL (40-350); IMMUNOGLOBULIN G 1318 MG/DL (650-1600); IMMUNOGLOBULIN M 28.1 MG/DL (50-300); POTASSIUM SERUM 3.8 MMOL/L (3.5-5.1); SODIUM LEVEL 138 MMOL/L (136-145); TOTAL PROTEIN 6.4 G/DL (5.7-8.2)
== END ==
LOC: M LAB REF 12:21
PROVIDERS: ATTEND Internal Medicine Medical Oncology
DX: C90.02 Multiple myeloma in relapse (principal)

== ENCOUNTER → 2023-04-30 | Outpatient (CLI) | payer BC, MEDICARE ==
[~2023-04-30] MED LIST changes: +PERC5TAB12 PO
[2023-04-30 12:10] LABS: ABG BASE EXCESS 3.2 (-2.0-2.0); ABG HCO3 27.3 MMOL/L (22.0-26.0); ABG O2 SATURATION 92.2 % (95.0-99.0); ABG PARTIAL PRESSURE CO2 39.8 mmHg (35.0-45.0); ABG PARTIAL PRESSURE O2 61.6 mmHg (75.0-100.0); ABG STANDARD HCO3 27.2 MMOL/L. (22.0-26.0); ABG TOTAL CO2 28.5 MMOL/L (23.0-31.0); ABG pH (ARTERIAL) 7.454 UNITS (7.350-7.450)
== END ==
LOC: M LAB 11:24
PROVIDERS: ATTEND Internal Medicine
DX: R09.02 Hypoxemia (principal)

== ENCOUNTER → 2023-05-22 | Outpatient (CLI) | payer BC ==
[~2023-05-22] MED LIST changes: -CEFD300C41 PO; +CEFD300C42 PO
== END ==
LOC: M PLAIMG 14:18
PROVIDERS: ATTEND Nurse Practitioner Family
DX: C34.11 Malignant neoplasm of upper lobe, right bronchus or lung (principal)

== ENCOUNTER → 2023-07-03 | Outpatient (CLI) | payer BC ==
[~2023-07-03] MED LIST changes: +CEFD1CAP9 PO; -CEFD300C42 PO
== END ==
LOC: M RAD 13:21
PROVIDERS: ATTEND Internal Medicine Medical Oncology
DX: C90.00 Multiple myeloma not having achieved remission (principal)

== ENCOUNTER → 2024-04-01 | Outpatient (REF) | payer BC ==
[~2024-04-01] MED LIST changes: +CEFD1CAP9; +ERYT5OIN25 OP; +GABA-282 PO; +ONDA-284 PO; -ONDA8TAB8 PO; +POMA2CAP PO; +SEMA0.257 SQ; +THERTAB52 PO
== END ==
LOC: M LAB REF 12:01
PROVIDERS: ATTEND Internal Medicine Medical Oncology
DX: C90.02 Multiple myeloma in relapse (principal)

== ENCOUNTER → 2024-05-27 | Outpatient (CLI) | payer BC ==
[~2024-05-27] MED LIST changes: +GABA-1172 PO; -GABA-282 PO
== END ==
LOC: M RAD 13:16
PROVIDERS: ATTEND Physician Assistant
DX: C34.11 Malignant neoplasm of upper lobe, right bronchus or lung (principal)

== ENCOUNTER 2024-06-07 06:18 | Emergency (ER) | payer BC ==
[~2024-06-07] VITALS: Ht 154.9 cm; Wt 71.8 kg
[2024-06-07 06:22] VITALS: TEMP 96.7; O2SAT 98
[2024-06-07] MEDS: DICYCLOMINE 10 MG CAP PO ONE (09:16)
[2024-06-07] MEDS: METOCLOPRAMIDE INJ 10MG/2ML VIAL IV ONE (09:16)
[2024-06-07 09:21] LABS: BASO % 0.3 % (0.0-1.0); EOS % 0.1 % (0.0-3.0); HEMATOCRIT 50.8 % (36.0-47.0); HEMOGLOBIN 16.9 g/dl (12.0-15.5); LYMPH # 0.5 10^3/uL (1.5-5.0); MEAN CORPUSCULAR HEMOGLOBIN 32.5 pg (27.0-33.0); MEAN CORPUSCULAR HGB CONC 33.3 g/dl (32.0-36.5); MEAN CORPUSCULAR VOLUME 97.7 fl (80.0-96.0); MONO # 0.4 10^3/uL (0.0-0.8); MONO % 3.6 % (2.0-8.0); NEUTROPHILS # 10.7 10^3/uL (1.5-8.5); NEUTROPHILS % 91.8 % (36.0-66.0); PLATELET COUNT, AUTOMATED 195 10^3/uL (150-450); WHITE BLOOD COUNT 11.6 10^3/uL (4.0-10.0)
[2024-06-07 09:49] LABS: LIPASE 49 U/L (12-53)
[2024-06-07 09:52] LABS: ALBUMIN 3.3 G/DL (3.2-5.2); ALKALINE PHOSPHATASE 84 U/L (35-104); ALT/SGPT 13 U/L (7.0-40); AST/SGOT 14 U/L (<34); BILIRUBIN,DIRECT 0.2 MG/DL (<0.4); BILIRUBIN,TOTAL 0.8 MG/DL (0.3-1.2); BLOOD UREA NITROGEN 14 MG/DL (9-23); CALCIUM LEVEL 10.8 MG/DL (8.3-10.6); CARBON DIOXIDE LEVEL 28 MMOL/L (20-31); CHLORIDE LEVEL 102 MMOL/L (98-107); CREATININE FOR GFR 0.72 MG/DL (0.55-1.30); GLOMERULAR FILTRATION RATE > 60.0 (>39); GLUCOSE, FASTING 190 MG/DL (74-106); POTASSIUM SERUM 3.7 MMOL/L (3.5-5.1); SODIUM LEVEL 136 MMOL/L (136-145)
[2024-06-07] MEDS ORDERED: ISOVUE-370 76% 100ML VIAL As Ordered ONE (10:03)
[2024-06-07 11:01] VITALS: BP 162/70
[2024-06-07] MEDS ORDERED: METR-265 PO (12:18)
[2024-06-07] MEDS ORDERED: REGL5TAB2 PO (12:18)
[2024-06-07] MEDS ORDERED: CIPR-249 PO (12:18)
== END 2024-06-07 12:24 | disposition home or self-care (01) ==
LOC: M ED 06:18
DX: K81.0 Acute cholecystitis (principal); R94.31 Abnormal electrocardiogram [ECG] [EKG]; I50.22 Chronic systolic (congestive) heart failure; I48.91 Unspecified atrial fibrillation; E11.9 Type 2 diabetes mellitus without complications; I11.0 Hypertensive heart disease with heart failure; N18.30 Chronic kidney disease, stage 3 unspecified; Z87.891 Personal history of nicotine dependence; Z88.0 Allergy status to penicillin; Z88.5 Allergy status to narcotic agent; Z88.8 Allergy status to other drugs, medicaments and biological substances; Z91.040 Latex allergy status; Z91.013 Allergy to seafood; Z79.2 Long term (current) use of antibiotics; Z79.4 Long term (current) use of insulin; Z79.810 Long term (current) use of selective estrogen receptor modulators (SERMs); Z79.899 Other long term (current) drug therapy
CPT/HCPCS: 74177; 80048; 80076; 81001; 83690; 85025; 87086; 93005; 96374; 99284; J2765; Q9967

== ENCOUNTER → 2024-10-12 | Outpatient (REF) | payer BC ==
[~2024-10-12] MED LIST changes: +CIPR-249 PO; +MAGN400T2 PO; +METR-265 PO; +POTA10CA70 PO; +REGL5TAB2 PO; +VANC125C13 PO; -VANC125C3 PO
== END ==
LOC: M LAB REF 17:06
PROVIDERS: ATTEND Internal Medicine
DX: N39.0 Urinary tract infection, site not specified (principal)

== ENCOUNTER → 2024-11-22 | Outpatient (REF) | payer BC ==
[~2024-11-22] MED LIST changes: +MORP-137 PO; +MORP-138 PO; -MORP15TASA PO; -MSIR30TA PO
== END ==
LOC: M LAB REF 17:25
PROVIDERS: ATTEND Internal Medicine
DX: E78.5 Hyperlipidemia, unspecified (principal); D68.69 Other thrombophilia

== ENCOUNTER → 2025-02-09 | Outpatient (REF) | payer BC ==
[~2025-02-09] MED LIST changes: +ACYC-438 PO; -ACYC1TAB PO; +BASA100I; +FURO20TA2 PO; +IXAZ3CAP PO; +TRAZ-252 PO
== END ==
LOC: M LAB REF 15:11
PROVIDERS: ATTEND Internal Medicine Medical Oncology
DX: D72.829 Elevated white blood cell count, unspecified (principal)

== ENCOUNTER → 2025-03-07 | Outpatient (REF) | payer BC ==
[2025-03-07 11:55] LABS: ALT/SGPT 18.0 U/L (7.0-40); AST/SGOT 15.0 U/L (<34); CALCIUM LEVEL 11.7 MG/DL (8.3-10.6); CARBON DIOXIDE LEVEL 27.0 MMOL/L (20-31); CHLORIDE LEVEL 98.0 MMOL/L (98-107); CREATININE FOR GFR 0.73 MG/DL (0.55-1.30); GLOMERULAR FILTRATION RATE 84.7 (>39); MAGNESIUM LEVEL 2.0 MG/DL (1.8-2.4); POTASSIUM SERUM 3.9 MMOL/L (3.5-5.1); SODIUM LEVEL 137.0 MMOL/L (136-145)
[2025-03-07 11:57] LABS: ESTIMATED AVERAGE GLUCOSE 160.0 MG/DL (60-110)
== END ==
LOC: M LAB REF 10:12
PROVIDERS: ATTEND Internal Medicine
DX: I13.0 Hypertensive heart and chronic kidney disease with heart failure and stage 1 through stage 4 chronic kidney disease, or unspecified chronic kidney disease (principal); I50.9 Heart failure, unspecified; N18.9 Chronic kidney disease, unspecified; E11.65 Type 2 diabetes mellitus with hyperglycemia

== ENCOUNTER → 2025-05-09 | Outpatient (CLI) | payer BC ==
[~2025-05-09] MED LIST changes: -CAPT125TA PO; +CAPT1TAB16 PO
== END ==
LOC: M RAD 07:36
PROVIDERS: ATTEND Physician Assistant
DX: C34.11 Malignant neoplasm of upper lobe, right bronchus or lung (principal)

== ENCOUNTER → 2025-06-27 | Outpatient (REF) | payer BC ==
[~2025-06-27] MED LIST changes: +ZOLP-532 PO
[2025-06-27 11:39] LABS: ESTIMATED AVERAGE GLUCOSE 206.0 MG/DL (60-110)
[2025-06-27 12:12] LABS: ALT/SGPT 11 U/L (7.0-40); AST/SGOT 14 U/L (<34); CALCIUM LEVEL 10.5 MG/DL (8.3-10.6); CARBON DIOXIDE LEVEL 28 MMOL/L (20-31); CHLORIDE LEVEL 97 MMOL/L (98-107); CHOLESTEROL LEVEL 232 MG/DL (<200); CHOLESTEROL RISK RATIO 5.60 (<5); CREATININE FOR GFR 0.95 MG/DL (0.55-1.30); GLOMERULAR FILTRATION RATE 61.3 (>39); MAGNESIUM LEVEL 2.2 MG/DL (1.8-2.4); NON-HDL-C 190.6 MG/DL; POTASSIUM SERUM 4.0 MMOL/L (3.5-5.1); SODIUM LEVEL 135 MMOL/L (136-145); TRIGLYCERIDES LEVEL 462 MG/DL (<150)
== END ==
LOC: M LAB REF 10:39
PROVIDERS: ATTEND Internal Medicine
DX: E11.65 Type 2 diabetes mellitus with hyperglycemia (principal); E03.9 Hypothyroidism, unspecified; I48.20 Chronic atrial fibrillation, unspecified